=== PATIENT | female | born 1965 | race Caucasian/White ===

== ENCOUNTER 2023-01-01 10:05 | Emergency (ER) | payer OTHER, SELFPAY ==
[2023-01-01 10:10] VITALS: BP 149/96; PULSE 74; RESP 16; TEMP 36.8; O2SAT 99; BMI 35.4
--- NOTE | 2023-01-01 11:33 | ED_ITS ---
HPI - General Adult General Chief complaint: Headache Stated complaint: COVID+ FACE PAIN Time Seen by Provider: 01/01/23 11:27 Source: patient Mode of arrival: walk-in Limitations: no limitations History of Present Illness HPI narrative: This document has been composed with a new electronic medical record and [email or web address] voice recognition system. This document may not fully inaccurately reflect the entirety of the patient encounter.patient's here complaining of nasal congestion and stuffiness sore throat sputum production. She's been previously diagnosed as outpatient test with Covid. She spoke with her primary care doctor who placed her on steroids. She's not on any antibiotics. She is not a diabetic. She does smoke tobacco products. She's had two previous Covid shots but no boosters. She does not use oxygen at home, has no history of chronic obstructive pulmonary disease. She's not short of breath she just wondered about the increased congestion nasal stuffiness since starting her steroids. She did not have a chest x-ray. She's not had nausea vomiting or diarrhea. She tried going back to work and just didn't feel very good. Related Data Allergies Allergy/AdvReac Type Severity Reaction Status Date / Time No Known Drug Allergies Allergy Verified 01/01/23 10:15 Exam Narrative Exam Narrative: awake alert does not appear acutely ill vital signs are stable she is afebrile no hypotension or tachycardia. No respiratory distress and her pulse oximetry is ninety-nine percent on room air. She does have somewhat of a cough. Her skin color is good mucous membranes are moist and pink. We will get a chest x-ray. She has no respiratory distress oximetry is normal no tachypnea. Otherwise she does not appear ill Constitutional Vital Signs, click to edit/add: Last Vital Signs Temp 98.2 F 01/01/23 10:10 Pulse 74 01/01/23 10:10 Resp 16 01/01/23 10:10 BP 149/96 H 01/01/23 10:10 Pulse Ox 99 01/01/23 10:10 O2 Del Method Room Air 01/01/23 10:10 Course Vital Signs Vital signs: Vital Signs Temperature 98.2 F 01/01/23 10:10 Pulse Rate 74 01/01/23 10:10 Respiratory Rate 16 01/01/23 10:10 Blood Pressure 149/96 H 01/01/23 10:10 Pulse Oximetry 99 01/01/23 10:10 Oxygen Delivery Method Room Air 01/01/23 10:10 Temperature 98.2 F 01/01/23 10:10 Pulse Rate 74 01/01/23 10:10 Respiratory Rate 16 01/01/23 10:10 Blood Pressure 149/96 H 01/01/23 10:10 Pulse Oximetry 99 01/01/23 10:10 Oxygen Delivery Method Room Air 01/01/23 10:10 Medical Decision Making MDM Narrative Medical decision making narrative: patient diagnosed with Covid over one week ago. Chest x-ray is normal pulse oximetry and rest trace status is normal. She does have some upper astray symptoms and will be advised to take [id number] Mucinex. She should finish her prednisone that was advised by her primary care doctor Discharge Plan Discharge Chief Complaint: Headache Clinical Impression: COVID-19 Patient Disposition: Home, Self-Care Time of Disposition Decision: 12:22 Additional Instructions: finish the prednisone/Mucinex D [id number] if she did not have problems blood pressure Stand Alone Forms: Portal Instructions Referrals: Shaikh Arshad MD [Primary Care Provider] - 1 week
--- NOTE | 2023-01-01 11:44 | XR_ITS ---
The [address] [address] Patient Name: FABRIZIO ECKERT MRN: [id number] date: 1965 Sex: F Assigned Patient Location: ER Current Patient Location: ER Accession/Order Number: [id number] Exam Date: 01/01/2023 11:58 Report Date: 01/01/2023 12:19 At the request of: GEORGI REINA Procedure: XR chest 1V FRONTAL CHEST; 01/01/2023 11:58 AM EDT Clinical History:sob Comparison: 10/14/2021 . AP portable upright film. No change osseous structures. No change cardiac and mediastinal silhouettes. Again, exophytic pericardial fat right cardiophrenic region. No change in the christofer. No failure pattern. No pleural effusion. No focal infiltrate. Scattered granulomas. Lungs are well expanded. XR/XR chest 1V IMPRESSION: 1. No acute findings. Electronically authenticated by: LIA KOEHLER Date: 01/01/2023 12:19
== END 2023-01-01 12:29 | disposition home or self-care (01) ==
PROVIDERS: Emergency Provider Emergency Medicine Emergency Medical Services; PCP Internal Medicine
DX: U07.1 COVID-19 (principal)
CPT/HCPCS: 71045; 99283

== ENCOUNTER 2023-05-24 06:40 | Outpatient (OUT) | payer OTHER, SELFPAY ==
[2023-05-24 07:12] LABS: Basophils Absolute Auto 0.1 10^3/uL (0.0-0.1); Eosinophils Absolute Auto 0.2 10^3/uL (0.0-0.7); Hematocrit 46.1 % (36.0-48.0); Immature Granulocytes Abs Auto 0.02 10^3/uL (0.00-0.03); Immature Granulocytes Pct Auto 0.2 % (0.0-0.5); Lymphocytes Absolute Auto 1.8 10^3/uL (1.2-3.8); Lymphocytes Percent Auto 21.6 % (20.5-60.0); Mean Corpuscular HGB Conc 32.5 g/dL (29.9-35.2); Mean Corpuscular Hemoglobin 30.8 pg (26.7-34.0); Mean Corpuscular Volume 94.7 fL (81.0-99.0); Mean Platelet Volume 9.5 fL (9.5-13.5); Monocytes Absolute Auto 0.5 10^3/uL (0.3-0.8); Monocytes Percent Auto 5.6 % (1.7-12.0); Neutrophils Absolute Auto 5.6 10^3/uL (1.4-6.5); Neutrophils Percent Auto 69.6 % (43.0-75.0); Platelet Count 327 10^3/uL (150-450); Red Blood Count 4.87 10^6/uL (4.20-5.40); Red Cell Distribution Width 13.5 % (11.0-15.0); White Blood Count 8.1 10^3/uL (4.0-11.0)
[2023-05-24 07:20] LABS: Alanine Aminotransferase 22 U/L (14-59); Albumin Globulin Ratio 0.8; Albumin Level 3.2 g/dL (3.4-5.0); Alkaline Phosphatase 99 U/L (46-116); Anion Gap 12.5; Aspartate Amino Transferase 16 U/L (15-37); BUN Creatinine Ratio 12.2; Bilirubin Total 0.4 mg/dL (0.2-1.0); Calcium 8.9 mg/dL (8.5-10.1); Carbon Dioxide 31.4 mmol/L (21.0-32.0); Chloride 101 mmol/L (98-107); Chol HDL Ratio 4.2; Cholesterol 256 mg/dL (<=200); Estimated GFR (African America >60 (>=60); Estimated GFR (Non-African Ame >60 (>=60); Globulin 4.1 g/dL; Glucose 126 mg/dL (74-106); HDL Cholesterol 61 mg/dL (40-60); Potassium 4.9 mmol/L (3.5-5.1); Sodium 140 mmol/L (136-145); Total Protein 7.3 g/dL (6.4-8.2); Triglycerides 193 mg/dL (<=150); VLDL CHOLESTEROL 38.6 mg/dL
== END 2023-05-24 06:41 | disposition home or self-care (01) ==
LOC: LAB 06:40
PROVIDERS: PCP Internal Medicine; Visit Provider Internal Medicine
DX: I25.10 Atherosclerotic heart disease of native coronary artery without angina pectoris (principal); I10 Essential (primary) hypertension; E78.5 Hyperlipidemia, unspecified
CPT/HCPCS: 36415; 80053; 80061; 85025

== ENCOUNTER 2023-06-24 07:53 | Outpatient (OUT) | payer OTHER, SELFPAY ==
--- OUTSIDE RECORDS SUMMARY | 2023-06-24 07:56 | XMS_ITS | CCD ---
Author Name Unknown Address [address] [place] [address] Organization [facility] Care Team Providers Care Automotive Technician Instructor Name Role Phone PETE, AMGEOFFR Referring Unavailable SEAN, LAURA A Primary Care Unavailable PETE, KAYLA Admitting Unavailable KAYLA FREEMAN Attending Unavailable [place], Laura Primary Care Provider [phone] RHETT NAQVI Referring Unavailable SEAN, LAURA A Primary Care Unavailable AHMADRHETT Referring Unavailable SEAN, LAURA A Primary Care Unavailable RHETT GREGORY Referring Unavailable SEAN, LAURA A Primary Care Unavailable SEAN, LAURA A Primary Care Unavailable DEYANIRA REID Attending Unavailab le SEAN, LAURA A Referring Unavailable SEAN, LAURA A Primary Care Unavailable SEAN, LAURA A Referring Unavailable SEAN, LAURA A Primary Care Unavailable SEAN, LAURA A Referring Unavailable SEAN, LAURA A Primary Care Unavailable Suzi Khanna Primary Care Provider Suzi Khanna Primary Care Provider [phone] Provider, None Primary Care Unavailable Len Garcia Attending Unavailable Len Garcia Admitting Unavailable PAL ANDERSON Admitting Unavailable GABRIELA, DR JUNITO Pisano Consulting Unavailable JONO, MCCAULEY H Primary Care Unavailable PAL ANDERSON Attending Unavailable PAL ANDERSON Consulting Unavailable MARKER, DR JUNG Attending Unavailable MARKER, DR JUNG Admitting Unavailable RAFAT MCMANUS Consulting Unavailable FAWRADHA, MCCAULEY H Primary Care Unavailable MARKER, DR JUNG Consulting Unavailable LEN DNOATO Consulting Unavailable PAL ANDERSON Attending Unavailable PAL ANDERSON Admitting Unavailable MYRA, DR CEASAR Pichardo Consulting Unavailable FAWWAD, MCCAULEY H Primary Care Unavailable PAL ANDERSON Consulting Unavailable FAWWAD, MCCAULEY H Attending Unavailable FAWWAD, MCCAULEY H Admitting Unavailable FAWWAD, MCCAULEY H Primary Care Unavailable FAWWAD, MCCAULEY H Consulting Unavailable FAWWAD, MCCAULEY H Consulting Unavailable FAWWAD, MCACULEY H Attending Unavailable FAWWAD, MCCAULEY H Admitting Unavailable FAWWAD, MCCAULEY H Primary Care Unavailable Calin ESTEVEZ Attending Unavailable SHAIKH DE LA CRUZ Attending Unavailable Allergies Allergy Classification Reported Allergen(s) Allergy Type Date of Onset Reaction(s) Facility (4 sources) Seasonal allergy Allergy to substance 04-30-2020 [facility] Work Phone: Medications Current Medications Medication Drug Class(es) Dates Sig (Normalized) Sig (Original) Aspirin Adult Low Strength 81MG Oral Tablet Delayed Release (9 sources) Start: 09-12-2018 Aspirin Adult Low Strength 81MG Oral Tablet Delayed Release 09/12/2018 Provider: citalopram 40 mg oral tablet (20 sources) Serotonin Reuptake Inhibitor Start: 04-30-2020 End: 07-03-2020 CeleXA 40 MG Oral Tablet 07/03/2020 Provider: Suzi Khanna CNP Start: 09-12-2018 End: 04-30-2020 Citalopram Hydrobromide 20MG Oral Tablet 10/25/2018 - 11/24/2018 Provider: Yevgeniy Park CNP diphenhydrAMINE hydrochloride 25 mg oral tablet (1 source) Histamine-1 Receptor Antagonist Start: 07-03-2020 Benadryl Allergy 25 MG Oral Tablet 07/03/2020 Provider: hydrOXYzine hydrochloride 25 mg oral tablet (5 sources) Antihistamine Start: 04-30-2020 End: 07-03-2020 hydrOXYzine HCl 25 MG Oral Tablet 07/03/2020 Provider: Suzi Khanna CNP Completed/Discontinued Medications Medication Drug Class(es) Dates Sig (Normalized) Sig (Original) amoxicillin 500 mg oral capsule (15 sources) Penicillin-class Antibacterial Start: 05-18-2019 End: 04-30-2020 Amoxicillin 500 MG Oral Capsule 05/18/2019 - 04/30/2020 Provider: Maulik Geiger MD Start: 04-17-2019 End: 04-24-2019 Amoxicillin 500 MG Oral Tabl et 04/17/2019 - 04/24/2019 Provider: Carlitos Summers DDS atenolol 50 mg oral tablet (20 sources) beta-Adrenergic Es Start: 09-12-2018 End: 07-03-2020 Atenolol 50 MG Oral Tablet 11/08/2019 - 11/16/2019 Provider: Suzi Khanna CNP clopidogrel 75 mg oral tablet (20 sources) P2Y12 Platelet Inhibitor Start: 04-18-2019 End: 07-03-2020 Clopidogrel Bisulfate 75 MG Oral Tablet 11/08/2019 - 11/16/2019 Provider: Suzi Khanna CNP Fish Oils (9 sources) Start: 09-12-2018 End: 04-25-2019 Fish Oil 1000MG Oral Capsule 09/12/2018 - 04/25/2019 Provider: Start: 09-12-2018 Fish Oil 1000M G Oral Capsule 09/12/2018 Provider: lisinopril 5 mg oral tablet (20 sources) Angiotensin Converting Enzyme Inhibitor Start: 09-12-2018 End: 07-03-2020 Lisinopril 5MG Oral Tablet 09/14/2018 - 04/09/2019 Provider: Laura Ramirez CNP lovastatin 20 mg oral tablet (18 sources) HMG-CoA Reductase Inhibitor Start: 09-12-2018 End: 03-13-2019 Lovastatin 20MG Oral Tablet 09/14/2018 - 03/13/2019 Provider: Laura Ramirez CNP Magnesium (9 sources) Start: 09-12-2018 End: 04-25-2019 Magnesium 500MG Oral Tablet 09/12/2018 - 04/25/2019 Provider: Start: 09-12-2018 Magnesium 500M G Oral Tablet 09/12/2018 Provider: Problems Active Problems Problem Classification Problem Date Documented Da te Episodic/Chronic Abdominal pain (2 sources) Unspecified abdominal pain; 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: [Right upper quadrant pain] Onset: 11-18-2021 Episodic Adjustment disorders (4 sources) Adjustment disorder with anxious mood; 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: [Adjustment Disorder with Anxiety] Onset: 04-30-2020 Chronic Anxiety disorders (3 sources) Anxiety disorder; 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: [Anxiety Disorder Nos] Onset: 09-14-2018 Chronic Coronary atherosclerosis and other heart disease (7 sources) Coronary arteriosclerosis; 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: [Atherosclerotic heart disease of comanche coronary artery without angina pectoris] Onset: 09-14-2018 Chronic Disorders of lipid metabolism (4 sources) Hyperlipidemia; 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: [Hyperlipidemia, unspecified] Onset: 09-14-2018 Chronic E Codes: Struck by; against (1 source) Other cause of strike by thrown, projected or falling object, initial encounter; 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: [OTH CAUSE STRIK THRWN/FALL OBJ INIT] Onset: 04-30-2022 Episodic Essential hypertension (13 sources) Benign essential hypertension; 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: [Hypertensive disorder] Onset: 09-14-2018 Chronic Genitourinary symptoms and ill-defined conditions (4 sources) Hematuria, unspecified; 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: [HEMATURIA UNSPECIFIED] Onset: 02-17-2022 Episodic Immunizations and screening for infectious disease (4 sources) Exposure to communicable disease; 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: [Virus (organism)] Onset: 04-30-2020 Episodic Mood disorders (17 sources) Depressive disorder; 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: [Recurrent major depression in full remission] Onset: 04-25-2019 Chronic Other aftercare (1 source) Other sizing machine operator (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 therapy; 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: [OTH COAL WASHER CURRENT DRUG THERAPY] Onset: 04-30-2022 Episodic Other aftercare (1 source) jail (current) use of aspirin; 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: [PRISON CURRENT USE OF ASPIRIN] Onset: 04-30-2022 Episodic Other connective tissue disease (3 sources) Pain in left foot; 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: [PAIN IN LEFT FOOT] Onset: 04-28-2022 Episodic Other nutritional; endocrine; and metabolic disorders (17 sources) Simple obesity ; 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: [Obesity Exogenous Due To Excess Calories] Onset: 09-14-2018 Chronic Substance-related disorders (1 source) Nicotine dependence, cigarettes, uncomplicated; 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: [NICOTINE DEPEND CIGARETTES UNCOMP] Onset: 04-30-2022 Chronic Superficial injury; contusion (1 source) Contusion of left foot, initial encounter; 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: [CONTUSION LEFT FOOT INITIAL ENC] Onset: 04-30-2022 Episodic Unclassified (1 source) COUGH, UNSPECIFIED; 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: [COUGH, UNSPECIFIED] Onset: 10-15-2021 Unclassified (2 sources) CONTACT W/AND (SUSP) EXPOS COVID-19; 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: [CONTACT W/AND (SUSP) EXPOS COVID-19] Onset: 10-16-2021 Viral infection (1 source) COVID-19; 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: [COVID-19] Onset: 10-16-2021 Past or Other Problems Problem Classification Problem Date Documented Date Episodic/Chronic Fever of unknown origin (4 sources) Fever, unspecified; 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: [FEVER UNSPECIFIED] Onset: 10-14-2021 Episodic Mood disorders (3 sources) Recurrent mild major depressive disorder co-occurrent with anxiety; 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: [Mood disorders] Onset: 04-25-2019 Mycoses (3 sources) Onychomycosis of toenails; 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: [Dermatophytosis Onychomycosis Toenails Right 1st] Onset: 04-25-2019 Episodic Other non-traumatic joint disorders (3 sources) Hand joint pain; 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: [Arthralgia - Hand Right] Onset: 04-25-2019 Episodic Other screening for suspected conditions (not mental disorders or infectious disease) (5 sources) Encounter for screening for diabetes mellitus; 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: [Diabetes Risk Test Score] Onset: 09-14-2018 Episodic Other upper respiratory infections (8 sources) Upper respiratory infection; 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: [Acute sinusitis, unspecified] Onset: 09-24-2019 Episodic Unclassified (19 sources) Finding of body mass index; 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: [Body Mass Index] Onset: 09-14-2018 Unclassified (3 sources) History AND physical examination; 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: [Routine History and Physical] Onset: 09-14-2018 Unclassified (3 sources) Questionnaires Phq-9 Total Score; 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: [Questionnaires Phq-9 Total Score] Onset: 04-25-2019 Unclassified (3 sources) Fagerstrom Score; 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: [Fagerstrom Score] Onset: 04-25-2019 Unclassified (1 source) CONTACT W/AND (SUSP) EXPOS COVID-19; 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: [CONTACT W/AND (SUSP) EXPOS COVID-19] Onset: 10-13-2021 Results Test Name Value Interpretation Reference Range Facility Registrationon 02-02-2023 Registration [id number]:1 27 [facility] [place] 01-31-2023 Consent [id number]:127 Normal [facility] CT ABD/PELVIS WO CONon 02-18 CT ABD/PELVIS WO CON EXAM: CT ABD/PELVIS WO CON REASON FOR EXAM: Female, 56 years, CALCULUS OF KIDNEY. TECHNIQUE: Computed tomography of the abdomen and pelvis is performed in the axial projection from the lung bases to the pubic symphysis. Sagittal and coronal reconstructed images are performed. Dose reduction techniques were achieved by using automated exposure control and/or adjustment of mA and/or KVP according to patient size and/or use of iterative reconstruction technique. Study was performed without IV contrast. Study was performed without oral contrast. COMPARISON: None. FINDINGS: Lung bases: There is a calcified granuloma at the right lung base. There is no pleural effusion. The visualized portions of the heart are unremarkable. The lack of intravenous contrast slightly limits evaluation of the solid abdominal organs. Liver: The liver is normal. Gallbladder: The gallbladder is contracted. Spleen: The spleen is normal. Pancreas: The pancreas is normal. Adrenal glands: The left adrenal gland is prominent, suggesting hypertrophy. Right kidney: The kidney is normal in size. There is no renal calculus or hydronephrosis. Left kidney: The kidney is normal in size. There is no renal calculus or hydronephrosis. Stomach: The stomach is under distended, limiting evaluation for wall abnormalities. Small bowel: The small bowel is normal. Large bowel: The colon is normal. Appendix: The appendix is visualized, and is normal. Aorta: There are diffuse atherosclerotic calcifications of the abdominal aorta. IVC: The IVC is normal. Retroperitoneum: Normal retroperitoneum. Bladder: The bladder is normal. Pelvic organs: Normal uterus. Abdominal wall: There is a small fat-containing umbilical hernia. Osseous structures: Degenerative changes are seen in the visualized spine. IMPRESSION: No bowel obstruction or acute renal pathology. Normal appendix. Additional nonacute findings, as described above. Electronically authenticated by: LEN DONATO Date: 2022-02-17 23:02 Normal [facility] CBC AUTO DIFFon 02-17-2022 BASO # 0.1 103/ul Normal 0.0-0.[address] [facility] Comment on above: Performed By: #### C BC #### [facility] [address] [address] [address] Abby Sanchez Basophils/100 WBC (Bld) 0.7 % Normal 0.2-2.[address] [facility] Comment on above: Performed By: #### C BC #### [facility] [address] [place] [address] Dr. Abby Sanchez EO # 0.1 103/ul Normal 0.0-0.7 [facility] Comment on above: Performed By: #### C BC #### [facility] [address] [place] [address] Dr. Abby Sanchez Eosinophils/100 WBC (Bld) 1.0 % Normal 0.9-7.0 [facility] Comment on above: Performed By: #### C BC #### [facility] [address] [place] [address] Dr. Abby Sanchez Erythrocyte distribution width (RBC) [Ratio] 13.7 % Normal 11.0-15.[address] [facility] Comment on above: Performed By: #### C BC #### [facility] [address] [place] [address] Dr. Abby Sanchez Hematocrit (Bld) [Volume fraction] 44.5 % Normal 36.0-48.[address] [facility] Comment on above: Performed By: #### C BC #### [facility] [address] [place] [address] Dr. Abby Sanchez Hemoglobin (Bld) [Mass/Vol] 14.5 g/dL Normal 12.0-16.[address] [facility] Comment on above: Performed By: #### C BC #### [facility] [address] [place] [address] Dr. Abby Sanchez IG # 0.03 10e3/ul Normal 0.00-0.03 [facility] Comment on above: Performed By: #### C BC #### [facility] [address] [place] [address] Dr. Abby Sanchez IG % 0.2 % Normal 0.0-0.5 [facility] Comment on above: Performed By: #### C BC #### [facility] [address] [place] [address] Dr. Abby Sanchez LYMPH # 2.1 103/ul Normal 1.2-3.8 [facility] Comment on above: Performed By: #### C BC #### [facility] [address] [place] [address] Dr. Abby Sanchez Lymphocytes/100 WBC (Bld) 16.2 % Critically low 20.5-60.[address] [facility] Comment on above: Performed By: #### C BC #### [facility] [address] [place] [address] Dr. Abby Sanchez MANUAL DIFF REQ NO Normal [facility] Comment on above: Performed By: #### C BC #### [facility] [address] [place] [address] Dr. Abby Sanchez MCH (RBC) [Entitic mass] 30.6 pg Normal 26.7-34.0 [facility] Comment on above: Performed By: #### C BC #### [facility] [address] [place] [address] Dr. Abby Sanchez MCHC (RBC) [Mass/Vol] 32.6 g/dL Normal 29.9-35.2 [facility] Comment on above: Performed By: #### C BC #### [facility] [address] [place] [address] Dr. Abby Sanchez MCV (RBC) [Entitic vol] 93.9 fL Normal 81.0-99.0 [facility] Comment on above: Performed By: #### C BC #### [facility] [address] [place] [address] Dr. Abby Sanchez MONO # 0.6 103/ul Normal 0.3-0.8 [facility] Comment on above: Performed By: #### C BC #### [facility] [address] [place] [address] Dr. Abby Sanchez Monocytes/100 WBC (Bld) 5.1 % Normal 1.7-12.0 [facility] Comment on above: Performed By: #### C BC #### [facility] [address] [place] [address] Dr. Abby Sanchez NEUT # 9.7 103/ul Critically high 1.4-6.5 [facility] Comment on above: Performed By: #### C BC #### [facility] [address] [address] [address] Abby Sanchez Neutrophils/100 WBC (Bld) 76.8 % Critically high 43.0-75.[address] [facility] Comment on above: Performed By: #### C BC #### [facility] [address] [place] [address] Dr. Abby Sanchez Platelet mean volume (Bld) [Entitic vol] 9.6 fL Normal 9.5-13.[address] [facility] Comment on above: Performed By: #### C BC #### [facility] [address] [place] [address] Dr. Abby Sanchez PLT 324 103/ul Normal 150-450 [facility] Comment on above: Performed By: #### C BC #### [facility] [address] [place] [address] Dr. Abby Sanchez RBC 4.74 106/ul Normal 4.20-5.[address] [facility] Comment on above: Performed By: #### C BC #### [facility] [address] [place] [address] Dr. Abby Sanchez WBC 12.7 103/ul Critically high 4.0-11.[address] [facility] Comment on above: Performed By: #### C BC #### [facility] [address] [place] [address] Dr. Abby Sanchez CULTURE URINEon 02-17-2022 CULTURE URINE Culture Observations : NO GROWTH. Normal [facility] Comment on above: Performed By: #### U RCX #### [facility] [address] [place] [address] Dr. Abby Sanchez ER URINE PROFILEon 2 Bilirubin Ql (U) Negative Normal NEGATIVE [facility] Comment on above: Performed By: #### BARRINGTON MOERO ####[facility] [address] [address]Dr. Abby Sanchez Clarity (U) SL CLOUDY Abnormal CLEAR [facility] Comment on above: Performed By: #### BEAR MOEICRO ####[facility] [address] [id number]. Abby Sanchez Color (U) LT. YELLOW Normal YELLOW [facility] Comment on above: Performed By: #### Mani SNOW UMICRO ####[facility] [address] [address]Dr. Abby Sanchez ERUAHD A micrscopic examina tion will be performed if indicated. Normal [facility] Comment on above: Performed By: #### Mani SNOW UMICRO ####[facility] [address] [place], [place] [address]Dr. Abby Sanchez Glucose Ql (U) Negative Normal NEGATIVE [facility] Comment on above: Performed By: #### Mani SNOW UMICRO ####[facility] [address] [place], [place] [address]Dr. Abby Sanchez Hemoglobin Ql (U) LARGE Abnormal NEGATIVE [facility] Comment on above: Performed By: #### Mani SNOW UMICRO ####[facility] [address] [place], [place] [address]Dr. Abby Sanchez Ketones Ql (U) Negative Normal NEGATIVE [facility] Comment on above: Performed By: #### Mani SNOW UMICRO ####[facility] [address] [place], [place] [address]Dr. Abby Sanchez LEUKOCYTES TRACE Abnormal NEGATIVE [facility] Comment on above: Performed By: #### Mani SNOW UMICRO ####[facility] [address] [place], [place] [address]Dr. Abby Sanchez Nitrite Ql (U) Negative Normal NEGATIVE [facility] Comment on above: Performed By: #### Mani SNOW UMICRO ####[facility] [address] [place], [place] [address]Dr. Abby Sanchez pH (U) 7.0 [pH] Normal 5-9 [facility] Comment on above: Performed By: #### Mani SNOW UMICRO ####[facility] [address] [place], [place] [address]Dr. Abby Sanchez Protein (U) [Mass/Vol] 100 mg/dL Abnormal NEGATIVE/ TRACE [facility] Comment on above: Performed By: #### CATHY MOE ####[facility] [address] [address]Dr. Abby Sanchez SPEC GRAVITY 1.025 Normal 1.005-<=1.[address] [facility] Comment on above: Performed By: #### CATHY MOE ####[facility] [address] [address]Dr. Abby Sacnhez UR MICRO IND INDICATED Normal [facility] Comment on above: Performed By: #### CATHY MEO ####[facility] [address] [address]Dr. Abby Sanchez Urobilinogen Qn (U) 0.2 {Carolina'U}/dL Normal 0.2 - 1. [address] [facility] Comment on above: Performed By: #### CATHY MOE ####[facility] [address] [place], [place] [address]Dr. Abby Sanchez PROF CHEM 8 (BAS METB)on Anion gap [Moles/Vol] 11.5 mmol/L Normal [facility] Comment on above: Performed By: #### B MP ####[facility] [address] [place], [place] [address]Dr. Abby Sanchez Calcium [Mass/Vol] 8.9 mg/dL Normal 8.5-10.1 [facility] Comment on above: Performed By: #### B MP ####[facility] [address] [place], [place] [address]Dr. Abby Sanchez Chloride [Moles/Vol] 103 mmol/L Normal 98-107 [facility] Comment on above: Performed By: #### B MP ####[facility] [address] [place], [place] [address]Dr. Abby Sanchez CO2 [Moles/Vol] 29.1 mmol/L Normal 21.0-32.0 [facility] Comment on above: Performed By: #### B MP ####[facility] [address] [place], [place] [address]Dr. Abby Sanchez Creatinine [Mass/Vol] 0.79 mg/dL Normal 0.55-1.[address] [facility] Comment on above: Performed By: #### B MP ####[facility] [address] [address]Dr. Kirabrittney Daniel EGFR-AF SUDANESE >60 Normal >=[address] [facility] Comment on above: Performed By: #### B MP ####[facility] [address] [address]Dr. Kirabrittney Daniel EGFR-NON AF SUDANESE >60 Normal >=[address] [facility] Comment on above: Performed By: #### B MP ####[facility] [address] [address]Dr. Abby Sanchez Glucose [Mass/Vol] 112 mg/dL Critically high 74-106 T [facility] Comment on above: Performed By: #### B MP ####[facility] [address] [address]Dr. Abby Sanchez Potassium [Moles/Vol] 4.6 mmol/L Normal 3.5-5.[address] [facility] Comment on above: Performed By: #### B MP ####[facility] [address] [address]Dr. Abby Sanchez Sodium [Moles/Vol] 139 mmol/L Normal 136-[address] [facility] Comment on above: Performed By: #### B MP ####[facility] [address] [address]Dr. Abby Sanchez Urea nitrogen [Mass/Vol] 12.0 mg/dL Normal 7.0-18.[address] [facility] Comment on above: Performed By: #### B MP ####[facility] [address] [address]Dr. Abby Sanchez Urea nitrogen/Creatinine [Mass ratio] 15.2 mg/mg Normal [facility] Comment on above: Performed By: #### B MP ####[facility] [address] [address]Dr. Abby Sanchez PROTIMEon 02-17-2022 INR Coag (PPP) [Relative time] {INR} Normal [facility] Comment on above: Performed By: #### P T, PTT #### [facility] [address] [address] [address] Abby Sanchez INR GUIDELINES SEE BELOW Normal [facility] Comment on above: Result Comment: PINEDA RED INR: 2.0 - 3.0 CONDITIONS NOT LISTED BELOW 2.5 - 3.5 FOR PROSTHETIC HEART VALVE REPLACEMENT 2.5 - 3.5 RECURRENT THROMBOSIS Performed By: #### P T, PTT #### [facility] [address] [address] [address] Abby Sanchez PT Coag (PPP) [Time] 10.0 s Normal 9.0-11.6 [facility] Comment on above: Performed By: #### P T, PTT #### [facility] [address] [place] [address] Dr. Abby Sanchez PTTon 02-17-2022 aPTT Coag (Bld) [Time] 27.9 s Normal 22.3-36.2 [facility] Comment on above: Performed By: #### P T, PTT #### [facility] [address] [place] [address] Dr. Abby Sanchez URINE MICROSCOPIC ONLYon BACTERIA TRACE Abnormal NONE SEEN [facility] Comment on above: Performed By: #### BARRINGTON MOERO ####[facility] [address] [id number]. Abby Sanchez Bacteria identified Cx Nom (U) INDICATED Normal [facility] Comment on above: Performed By: #### BARRINGTON MOERO ####[facility] Zluujqdjbr[address] [place] [address]DrChandrakant Sanchez CAST NONE SEEN Normal NONE SEEN [facility] Comment on above: Performed By: #### BARRINGTON MOERO ####[facility] Bfhydxrbfp0809 [place] [address]DrChandrakant Sanchez Crystals LM Nom (Urine sed) NONE SEEN Normal NONE SEEN [facility] Comment on above: Performed By: #### BARRINGTON MOERO ####[facility] Ztlavepkua[address] [place], [place] [address]Dr. Abby Sanchez Epithelial cells LM Ql (Urine sed) FEW Abnormal NONE SEEN /RARE [facility] Comment on above: Performed By: #### CATHY MOE ####[facility] Rtilsvhyzo[address] [place], [place] [address]Dr. Kirabrittney Daniel MUCOUS NONE SEEN Normal NONE SEEN [facility] Comment on above: Performed By: #### CATHY MOE ####[facility] Agppzauoqw[address] [place], [place] [address]Dr. Abby Sanchez RBC (U) [#/Vol] /uL Abnormal 0-2 [facility] Comment on above: Performed By: #### CATHY MOE ####[facility] Mseqiyeqoz[address] [place], [place] [address]Dr. Abby Sanchez WBC 5-10 Abnormal NONE SEEN [facility] Comment on above: Performed By: #### CATHY MOE ####[facility] [address]zsuwevwxh[address] [place], [place] [address]Dr. Abby Daniel CBC AUTO DIFFon 11-17-2021 BASO # 0.1 103/ul Normal 0.0-0.1 [facility] Comment on above: Performed By: #### C BC ####[facility] Efuzfjmvcm[address] [place], [place] [address]Dr. Abby Sanchez Basophils/100 WBC (Bld) 0.9 % Normal 0.2-2.0 [facility] Comment on above: Performed By: #### C BC ####[facility] [address]jgvqtpv[address] [place], [place] [address]Dr. Abby Sanchez EO # 0.1 103/ul Normal 0.0-0.7 [facility] Comment on above: Performed By: #### C BC ####[facility] Euqhbahnae[address] [place], [place] [address]Dr. Abby Sanchez Eosinophils/100 WBC (Bld) 1.9 % Normal 0.9-7.0 [facility] Comment on above: Performed By: #### C BC ####[facility] Olazgtzmvf[address] [place], [place] [address]Dr. Abby Sanchez Erythrocyte distribution width (RBC) [Ratio] 13.8 % Normal 11.0-15.0 [facility] Comment on above: Performed By: #### C BC ####[facility] [address]xpbtspj[address] [place] [address]Dr. Abby Sanchez Hematocrit (Bld) [Volume fraction] 44.4 % Normal 36.0-48.0 [facility] Comment on above: Performed By: #### C BC ####[facility] Nwbhiapvqt4445 [place] [address]Dr. Abby Sanchez Hemoglobin (Bld) [Mass/Vol] 14.5 g/dL Normal 12.0-16.0 [facility] Comment on above: Performed By: #### C BC ####[facility] Lehxfzieju9485 [place] [address]Dr. Abby Sanchez IG # 0.02 10e3/ul Normal 0.00-0.03 [facility] Comment on above: Performed By: #### C BC ####[facility] Ntpfgvquou1869 [place] [address]Dr. Abby Sanchez IG % 0.4 % Normal 0.0-0.5 [facility] Comment on above: Performed By: #### C BC ####[facility] Slvmesyevv0570 [place] [address]Dr. Abby Sanchez LYMPH # 1.8 103/ul Normal 1.2-3.8 [facility] Comment on above: Performed By: #### C BC ####[facility] Lwwxkfggrb23[address] [place] [address]Dr. Abby Daniel Lymphocytes/100 WBC (Bld) 30.9 % Normal 20.5-60.0 [facility] Comment on above: Performed By: #### C BC ####[facility] Vqzywhudrm8898 [place] [address]Dr. Kirabrittney Sanchez MANUAL DIFF REQ NO Normal [facility] Comment on above: Performed By: #### C BC ####[facility] Ddqvluiunl7527 [place] [address]Dr. Abby Sanchez MCH (RBC) [Entitic mass] 31.2 pg Normal 26.7-34.0 [facility] Comment on above: Performed By: #### C BC ####[facility] Lruaronrzb6177 [place] [address]Dr. Abby Sanchez MCHC (RBC) [Mass/Vol] 32.7 g/dL Normal 29.9-35.2 [facility] Comment on above: Performed By: #### C BC ####[facility] Zzovqkjxvr5842 [place] [address]Dr. Abby Sanchez MCV (RBC) [Entitic vol] 95.5 fL Normal 81.0-99.0 [facility] Comment on above: Performed By: #### C BC ####[facility] Yuicvfeqsq9[address] [place], [place] [address]Dr. Abby Sanchez MONO # 0.3 103/ul Normal 0.3-0.8 [facility] Comment on above: Performed By: #### C BC ####[facility] Wjejcouhym[address] [place], [place] [address]Dr. Abby Sanchez Monocytes/100 WBC (Bld) 5.3 % Normal 1.7-12.0 [facility] Comment on above: Performed By: #### C BC ####[facility] Tuiktooitm[address] [place], [place] [address]Dr. Abby Sanchez NEUT # 3.5 103/ul Normal 1.4-6.5 [facility] Comment on above: Performed By: #### C BC ####[facility] Tajokityvv[address] [place], [place] [address]Dr. Abby Daniel Neutrophils/100 WBC (Bld) 60.6 % Normal 43.0-75.0 [facility] Comment on above: Performed By: #### C BC ####[facility] Ejorixryqu[address] [place], [place] [address]Dr. Abby Sanchez Platelet mean volume (Bld) [Entitic vol] 9.6 fL Normal 9.5-13.5 [facility] Comment on above: Performed By: #### C BC ####[facility] R[address] [place], [place] [address]Bt. Abby Sanchez PLT 308 103/ul Normal 150-450 [facility] Comment on above: Performed By: #### C BC ####[facility] Fifoonviah9849 [place] [id number] Malonebrittney Sanchez RBC 4.65 106/ul Normal 4.20-5.[address] [facility] Comment on above: Performed By: #### C BC ####[facility] Nviwexzntn8174 [place] [address]Dr. Kirabrittney Daniel WBC 5.7 103/ul Normal 4.0-11.0 [facility] Comment on above: Performed By: #### C BC ####[facility] Hllshkbted9680 [place] [id number]. Abby Sanchez GLYCOHEMOGLOBIN A1Con 2021 ADA RECOMMENDATION SEE BELOW Normal [facility] Comment on above: Result Comment: ADA RECOMMENDED LIMIT 4.0 - 6.0 ADA THERAPEUTIC TARGET < 7.0 ACTION SUGGESTED > 7.0 Performed By: #### A 1C #### [facility] [address] [place] [address] [address] Abby Sanchez Glucose [Mass/Vol] 131 mg/dL Normal [facility] Comment on above: Performed By: #### A 1C #### [facility] [address] [place] [address] Dr. Abby Sanchez HbA1c (Bld) [Mass fraction] 6.2 % Normal 4.5-6.[address] [facility] Comment on above: Performed By: #### A 1C #### [facility] [address] [address] [address] Abby Sanchez LIPASEon 11-17-2021 Lipase [Catalytic activity/Vol] 117.0 U/L Normal 73.0-393.[address] [facility] Comment on above: Performed By: #### C MP, LIPA, LIPID #### [facility] [address] [address] [address] Abby Sanchez LIPID PROFILEon 11-17-2021 CHOL-HDL RATIO NORM SEE BELOW Normal [facility] Comment on above: Result Comment: 3.3 - 4.4 LOW RISK 4.4 - 7.1 AVERAGE RISK 7.1 - 11.0 MODERATE RISK >11.0 HIGH RISK Performed By: #### C MP, LIPA, LIPID #### [facility] [address] [place] [address] Dr. Abby Sanchez Cholesterol [Mass/Vol] 220 mg/dL Critically high <=[address] [facility] Comment on above: Performed By: #### C MP, LIPA, LIPID #### [facility] [address] [address] [address] Abby Sanchez Cholesterol in HDL [Mass/Vol] 52 mg/dL Normal 40-[address] [facility] Comment on above: Performed By: #### C MP, LIPA, LIPID #### [facility] [address] [place] [address] Dr. Abby Sanchez Cholesterol in LDL [Mass/Vol] 142.8 mg/dL Normal [facility] Comment on above: Performed By: #### C MP, LIPA, LIPID #### [facility] [address] [place] [address] Dr. Abby Sanchez Cholesterol.total/C holesterol in HDL [Mass ratio] 4.2 {ratio} Normal [facility] Comment on above: Performed By: #### C MP, LIPA, LIPID #### [facility] [address] [place] [address] Dr. Abby Sanchez HDL NORMAL > or = 60 mg/dl - LO W CARDIOVASCULAR RISK <40 mg/dl - HIGH CARDIOVASCULAR RISK Normal [facility] Comment on above: Performed By: #### C MP, LIPA, LIPID #### [facility] [address] [place] [address] Dr. Abby Sanchez LDL CALC NORMAL SEE BELOW Normal [facility] Comment on above: Result Comment: <100 mg/dl OPTIMAL 100 - 129 mg/dl NEAR OR ABOVE OPTIMAL 130 - 159 mg/dl BORDERLINE HIGH 160 - 189 mg/dl HIGH >190 mg/dl VERY HIGH Performed By: #### C MP, LIPA, LIPID #### [facility] [address] [place] [address] Dr. Abby Sanchez Triglyceride [Mass/Vol] 126 mg/dL Normal <=[address] [facility] Comment on above: Performed By: #### C MP, LIPA, LIPID #### [facility] [address] [address] [address] Abby Sanchez VLDL CALC 25.2 mg/dL Normal [facility] Comment on above: Performed By: #### C MP, LIPA, LIPID #### [facility] [address] [address] [address] Abby Sanchez PROF 14(COMP METB)on 022 Albumin [Mass/Vol] 3.3 g/dL Critically low 3.4-5.0 [facility] e [facility] Comment on above: Performed By: #### C MP, LIPA, LIPID ####[facility] Tdhujlzkas[address] [place] [address]Dr. Abby Sanchez Albumin/Globulin [Mass ratio] 0.8 {ratio} Normal [facility] Comment on above: Performed By: #### C MP, LIPA, LIPID ####[facility] Z[address]jzjmbpl[address] [place] [address]Dr. Abby Sanchez ALP [Catalytic activity/Vol] 111 U/L Normal 46-[address] [facility] Comment on above: Performed By: #### C MP, LIPA, LIPID ####[facility] Hpnooqfjkr[address] [place] [address]Dr. Abby Sanchez ALT [Catalytic activity/Vol] 25 U/L Normal 14-[address] [facility] Comment on above: Performed By: #### C MP, LIPA, LIPID ####[facility] Gtffjpqvgs[address]98 [place] [address]Dr. Abby Sanchez Anion gap [Moles/Vol] 11.8 mmol/L Normal [facility] Comment on above: Performed By: #### C MP, LIPA, LIPID ####[facility] Ofifvzvkai6[address] [place] [address]Dr. Abby Sanchez AST [Catalytic activity/Vol] 19 U/L Normal 15-[address] [facility] Comment on above: Performed By: #### C MP, LIPA, LIPID ####[facility] Czjwisagcx4787 [place] [address]Dr. Abby Sanchez Bilirubin [Mass/Vol] 0.4 mg/dL Normal 0.2-1.0 [facility] Comment on above: Performed By: #### C MP, LIPA, LIPID ####[facility] Stbbdvjsux4697 [place] [address]Dr. Abby Sanchez Calcium [Mass/Vol] 9.1 mg/dL Normal 8.5-10.1 [facility] Comment on above: Performed By: #### C MP, LIPA, LIPID ####[facility] [address]lrohy[address] [place], [place] [address]Dr. Abby Sanchez Chloride [Moles/Vol] 103 mmol/L Normal 98-107 [facility] Comment on above: Performed By: #### C MP, LIPA, LIPID ####[facility] Phlbhfaaqp[address] [place], [place] [address]Dr. Abby Sanchez CO2 [Moles/Vol] 28.8 mmol/L Normal 21.0-32.0 [facility] Comment on above: Performed By: #### C MP, LIPA, LIPID ####[facility] Dhltjrexar[address] [place], [place] [address]Dr. Abby Sanchez Creatinine [Mass/Vol] 0.76 mg/dL Normal 0.55-1.02 [facility] Comment on above: Performed By: #### C MP, LIPA, LIPID ####[facility] Pigouxpspa[address] [place], [place] [address]Dr. Abby Sanchez EGFR-AF SUDANESE >60 Normal >=60 [facility] Comment on above: Performed By: #### C MP, LIPA, LIPID ####[facility] Djdqxsoymb[address] [place], [place] [address]Dr. Abby Sanchez EGFR-NON AF SUDANESE >60 Normal >=60 [facility] Comment on above: Performed By: #### C MP, LIPA, LIPID ####[facility] [address]qlelpidxg[address] [place], [place] [address]Dr. Abby Sanchez Globulin (S) [Mass/Vol] 4.1 g/dL Normal [facility] Comment on above: Performed By: #### C MP, LIPA, LIPID ####[facility] Uxyapizpne[address] [place] [address]Dr. Abby Sanchez Glucose [Mass/Vol] 111 mg/dL Critically high 74-106 T [facility] Comment on above: Performed By: #### C MP, LIPA, LIPID ####[facility] Iwvzuntcrp15[address] [place] [address]Dr. Abby Sanchez Potassium [Moles/Vol] 4.6 mmol/L Normal 3.5-5.[address] [facility] Comment on above: Performed By: #### C MP, LIPA, LIPID ####[facility] Glabazvqso[address] [place] [address]Dr. Abby Sanchez Protein [Mass/Vol] 7.4 g/dL Normal 6.4-8.[address] [facility] Comment on above: Performed By: #### C MP, LIPA, LIPID ####[facility] Frknwbayrf4575 [place] [address]Dr. Abby Sanchez Sodium [Moles/Vol] 139 mmol/L Normal 136-[address] [facility] Comment on above: Performed By: #### C MP, LIPA, LIPID ####[facility] Rciwcikpou[address] [place] [address]Dr. Abby Sanchez Urea nitrogen [Mass/Vol] 12.0 mg/dL Normal 7.0-18.[address] [facility] Comment on above: Performed By: #### C MP, LIPA, LIPID ####[facility] Pngjuswaxl[address] [place] [address]Dr. Abby Sanchez Urea nitrogen/Creatinine [Mass ratio] 15.8 mg/mg Normal [facility] Comment on above: Performed By: #### C MP, LIPA, LIPID ####[facility] Qfnzytzjxy[address] [place] [address]Dr. Abby Sanchez INFLUENZA A AND B AGon 10-14 INFLUANEGH SEE BELOW Normal [facility] Comment on above: Result Comment: Nega tive for Flu A protein angiten. Infection due to Flu A cannot be ruled out. Flu A angiten in the sample may be below the detection limit of the test. Performed By: #### I NFLUAB #### [facility] [address] [place] [address] Dr. Abby Sanchez [facility] SEE BELOW Normal [facility] Comment on above: Result Comment: Nega tive for Flu B protein antigen. Infection due to Flu B cannot be ruled out. Flu B antigen in the sample may be below the detection limit of the test. Performed By: #### I NFLUAB #### [facility] [address] [place] [address] Dr. Abby Sanchez INFLUENZA A AG Negative Normal NEGATIVE SEE COMMENT [facility] Comment on above: Performed By: #### I NFLUAB #### [facility] [address] [place] [address] Dr. Abby Sanchez INFLUENZA B AG Negative Normal NEGATIVE SEE COMMENT [facility] Comment on above: Performed By: #### I NFLUAB #### [facility] [address] [place] [address] Dr. Abby Sanchez INTERNAL CONTROLS Within Normal Limits Normal Wi thin Normal Limits [facility] Comment on above: Performed By: #### I NFLUAB #### [facility] [address] [place] [address] Dr. Abby Sanchez XR CHEST 1 Von 10-14-2021 XR CHEST 1 V EXAMINATION: XR CHES T 1 V HISTORY: COUGH COMPARISON: No relevant comparison available. TECHNIQUE: AP portable erect FINDINGS: LUNGS: Scattered pulmonary nodules, size and density suggests granulomas VASCULATURE: No increased pulmonary vasculature. PLEURA: No pneumothorax, effusion, or pleural thickening. CARDIAC: No cardiomegaly or cardiac silhouette abnormality. MEDIASTINUM: No visible mass or adenopathy. BONES: No fracture or visible bone lesion. OTHER: Negative. IMPRESSION: No focal infiltrates Electronically authenticated by: CEASAR RENTERIA Date: 2021-10-14 13:03 Normal [facility] Covid-19 PCR (CVDTB)on SARS-CoV-2 (COVID-19) RNA HAO+probe Ql (Unsp spec) Detected Critically abnormal NOT DETECTED [facility] Comment on above: Result Comment: This test is not yet approved or cleared by the [place] FDA. When there are no FDA-approved or cleared tests available, and other criteria are met, FDA can make tests available under an emergency access mechanism called an Emergency Use Authorization (EUA). The EUA for this test is supported by the Adjunct Psychology Instructor of Health and Human Service's declaration that circumstances exist to justify the emergency use of in vitro diagnostics for the detection and/or diagnosis of the virus that causes COVID-19. This EUA will remain in effect for the duration of the COVID-19 declaration justifying emergency of IVDs, unless it is terminated or revoked by the FDA (after which the test may no longer be used). Performed By: #### C [facility] ####[facility] Tvdswsmpfm[address] [place], [place] [address]FbChandrakant Sanchez XR HAND RIGHT (MIN 3 VIEWS)o n 04-25-2019 XR HAND RIGHT (MIN 3 VIEWS) EXAMINATION: THREE XRAY VIEWS OF THE RIGHT HAND 04/25/2019 12:27 pm COMPARISON: None. HISTORY: ORDERING SYSTEM PROVIDED HISTORY: Joint pain in fingers of right hand TECHNOLOGIST PROVIDED HISTORY: RT. THUMB FINDINGS: Anatomic alignment. No acute fracture. The joint spaces are not significantly narrowed. No destructive bony abnormality. Bone density is normal. IMPRESSION: Unremarkable appearing hand Interpreted by: Deyanira Cortés MD Signed by: Deyanira Cortés MD 04/25/19 Final result Normal [facility] C-Reactive Proteinon 019 CRP [Mass/Vol] 57.2 mg/L High 0.0-5.0 [facility] Comment on above: Performed By: #### C DP, CRP #### [facility] [address] [place] [address] Adjunct Business Instructor: Wang Day MD CBC with Diffon 12-17-2018 Abs. Basophil 0.04 k/uL Normal 0.00-0.20 [facility] Comment on above: Performed By: #### C DP, CRP #### [facility] [address] [place] [address] Adjunct Business Instructor: Wang Day MD Abs.Imm.Granulocyte 0.03 k/uL Normal 0.00-0.30 [facility] Comment on above: Performed By: #### C DP, CRP #### [facility] [address] [place] [place] [address] Adjunct Business Instructor: Wang Day MD Abs.Neutrophil (Seg) 6.82 k/uL Normal 1.50-8.10 [facility] Comment on above: Performed By: #### C DP, CRP #### [facility] [address] [place] [place] [address] Adjunct Business Instructor: Wang Day MD Basophils/100 WBC (Bld) 0 % Normal 0-2 [facility] Comment on above: Performed By: #### C DP, CRP #### [address] [place] [address] Adjunct Business Instructor: Wang Day MD Eosinophils (Bld) [#/Vol] 0.11 10*3/uL Normal 0.00-0.44 [facility] Comment on above: Performed By: #### C DP, CRP #### [address] [place] [address] Adjunct Business Instructor: Wang Day MD Eosinophils/100 WBC (Bld) 1 % Normal 1-4 [facility] Comment on above: Performed By: #### C DP, CRP #### [address] [place] [address] Adjunct Business Instructor: Wang Day MD Erythrocyte distribution width (RBC) [Ratio] 12.6 % Normal 11.8-14.4 [facility] Comment on above: Performed By: #### C DP, CRP #### [address] [place] [address] Adjunct Business Instructor: Wang Day MD Hematocrit (Bld) [Volume fraction] 36.5 % Normal 36.3-47.1 [facility] Comment on above: Performed By: #### C DP, CRP #### [address] [place] [id number] Adjunct Business Instructor: Wang Day MD Hemoglobin (Bld) [Mass/Vol] 12.1 g/dL Normal 11.9-15.1 [facility] Comment on above: Performed By: #### C DP, CRP #### [facility] [address] [place], [place] [id number] Adjunct Business Instructor: Wang Day MD Immature granulocytes (Bld) [#/Vol] 0 % Normal 0 [facility] Comment on above: Performed By: #### C DP, CRP #### [facility] [address] [place] [address] Adjunct Business Instructor: Wang Day MD Lymphocytes (Bld) [#/Vol] 1.57 10*3/uL Normal 1.10-3.70 [facility] Comment on above: Performed By: #### C DP, CRP #### [facility] [address] [place], [facility]83 Adjunct Business Instructor: Wang Day MD Lymphocytes/100 WBC (Bld) 17 % Low 24-43 [facility] Comment on above: Performed By: #### C DP, CRP #### [facility] [address] [place], [place] [address] Adjunct Business Instructor: Wang Day MD MCH (RBC) [Entitic mass] 31.3 pg Normal 25.2-33.5 [facility] Comment on above: Performed By: #### C DP, CRP #### [facility] [address] [place], [facility]83 Adjunct Business Instructor: Wang Day MD MCHC (RBC) [Mass/Vol] 33.2 g/dL Normal 28.4-34.8 [facility] Comment on above: Performed By: #### C DP, CRP #### [facility] [address] [place] [address] Adjunct Business Instructor: Wang Day MD MCV (RBC) [Entitic vol] 94.6 fL Normal 82.6-102.9 [facility] Comment on above: Performed By: #### C DP, CRP #### [facility] [address] [place], [place] [address] Adjunct Business Instructor: Wang Day MD Monocytes (Bld) [#/Vol] 0.84 10*3/uL Normal 0.10-1.20 [facility] Comment on above: Performed By: #### C DP, CRP #### [facility] [address] [place], [place] [id number] Adjunct Business Instructor: Wang Day MD Monocytes/100 WBC (Bld) 9 % Normal 3-12 [facility] Comment on above: Performed By: #### C DP, CRP #### [facility] [address] [place], [place] [address] Adjunct Business Instructor: Wang Day MD Neutrophil (Seg) 73 % High 36-65 [facility] Comment on above: Performed By: #### C DP, CRP #### [facility] [address] [place], [place] [address] Adjunct Business Instructor: Wang Day MD NRBC Automated 0.0 per 100 WBC Normal 0.0 [facility] Comment on above: Performed By: #### C DP, CRP #### [facility] [address] [place], [place] [address] Adjunct Business Instructor: Wang Day MD Platelet mean volume (Bld) [Entitic vol] 9.8 fL Normal 8.1-13.5 [facility] Comment on above: Performed By: #### C DP, CRP #### [facility] [address] [place], [place] [id number] Adjunct Business Instructor: Wang Day MD Platelets (Bld) [#/Vol] 290 10*3/uL Normal 138-453 [facility] Comment on above: Performed By: #### C DP, CRP #### [facility] [address] [place], [place] [id number] Adjunct Business Instructor: Wang Day MD RBC (Bld) [#/Vol] 3.86 10*6/uL Low 3.95-5.11 [facility] Comment on above: Performed By: #### C DP, CRP #### [facility] [address] [place], [place] [id number] Adjunct Business Instructor: Wang Day MD WBC (Bld) [#/Vol] 9.4 10*3/uL Normal 3.5-11.3 [facility] System Comment on above: Performed By: #### C DP, CRP #### [address] [place], [place] [id number] Adjunct Business Instructor: Wang Day MD Auto Diff Performed NOT REPORTED Normal [facility] Comment on above: Performed By: #### C DP, CRP #### [address] [place], [facility]83 Adjunct Business Instructor: Wang Day MD Platelets (Bld) [#/Vol] NOT REPORTED Normal [facility] Comment on above: Performed By: #### C DP, CRP #### [address] [place], [facility]83 Adjunct Business Instructor: Wang Day MD RBC morphology finding Nom (Bld) NOT REPORTED Normal [facility] Comment on above: Performed By: #### C DP, CRP #### [facility] [address] [place], [facility]83 Adjunct Business Instructor: Wang Day MD WBC Morphology NOT REPORTED Normal [facility] Comment on above: Performed By: #### C DP, CRP #### [facility] [address] [place], [place] [phone] Adjunct Business Instructor: Wang Day MD Urinalysis w/ Microon 2018 ----- Normal [facility] Comment on above: Performed By: #### U AMIC #### [facility] [address] [place], [place] [id number] Adjunct Business Instructor: Wang Day MD Acetoacetic Acid,Ur TRACE Abnormal [facility] Comment on above: Performed By: #### U AMIC #### [facility] [address] [place] [address] Adjunct Business Instructor: Wang Day MD Amorphous sediment LM Ql (Urine sed) TRACE Abnormal [facility] Comment on above: Performed By: #### U AMIC #### [facility] [address] [place] [phone] Adjunct Business Instructor: Wang Day MD Bacteria LM.HPF (Urine sed) [#/Area] TRACE Abnormal [facility] Comment on above: Performed By: #### U AMIC #### [address] [place] [address] Adjunct Business Instructor: Wang Day MD Bilirubin, SemiQt,Ur Negative Normal [facility] Comment on above: Performed By: #### U AMIC #### [address] [place] [phone] Adjunct Business Instructor: Wang Day MD Color (U) YELLOW Normal L [facility] Comment on above: Performed By: #### U AMIC #### [facility] [address] [place] [phone] Adjunct Business Instructor: Wang Day MD Epithelial cells LM.HPF (Urine sed) [#/Area] 2 TO 5 Normal 0-25 [facility] Comment on above: Performed By: #### U AMIC #### [facility] [address] [place], [place] [phone] Adjunct Business Instructor: Wang Day MD Glucose Ql (U) Negative Normal [facility] Comment on above: Performed By: #### U AMIC #### [facility] [address] [place] [address] Adjunct Business Instructor: Wang Day MD Hemoglobin, Ur 1+ Abnormal NEG [facility] Comment on above: Performed By: #### U AMIC #### [facility] [address] [place] [address] Adjunct Business Instructor: Wang Day MD Leukocyte esterase Test strip Ql (U) Negative Normal NEG [facility] Comment on above: Performed By: #### U AMIC #### [facility] [address] [place] [address] Adjunct Business Instructor: Wang Day MD Nitrite,Ur Negative Normal NEG [facility] Comment on above: Performed By: #### U AMIC #### [facility] [address] [place] [address] Adjunct Business Instructor: Wang Day MD pH (U) 7.5 [pH] Normal 5.0-9.0 [facility] Comment on above: Performed By: #### U AMIC #### [facility] [address] [place], [place] [phone] Adjunct Business Instructor: Wang Day MD Protein Ql (U) TRACE Abnormal NEG [facility] Comment on above: Performed By: #### U AMIC #### [facility] [address] [place] [address] Adjunct Business Instructor: Wang Day MD RBC (U) [#/Vol] 10 TO 20 Normal 0-2 [facility] Comment on above: Performed By: #### U AMIC #### [facility] [address] [place] [address] Adjunct Business Instructor: Wang Day MD Specific gravity (U) [Rel density] 1.010 Normal 1.010-1.020 [facility] Comment on above: Performed By: #### U AMIC #### [facility] [address] [place] [address] Adjunct Business Instructor: Wang Day MD Turbidity CLEAR Normal CLEAR [facility] Comment on above: Performed By: #### U AMIC #### [facility] [address] [place] [address] Adjunct Business Instructor: Wang Day MD Urobilinogen,Ur ELEVATED Abnormal NORM [facility] Comment on above: Performed By: #### U AMIC #### [facility] [address] [place], [place] [phone] Adjunct Business Instructor: Wang Day MD WBC (U) [#/Vol] 0 TO 2 Normal 0-5 [facility] Comment on above: Performed By: #### U AMIC #### [facility] [address] [place], [place] 357[address]83 Adjunct Business Instructor: Wang Day MD Casts LM.LPF (Urine sed) [#/Area] NOT REPORTED Normal [facility] Comment on above: Performed By: #### U AMIC #### [facility] [address] [place], [place] [phone] Adjunct Business Instructor: Wang Day MD Comment NOT REPORTED Normal [facility] Comment on above: Performed By: #### U AMIC #### [facility] [address] [place], [place] [phone] Adjunct Business Instructor: Wang Day MD Crystals LM Nom (Urine sed) NOT REPORTED Normal [facility] Comment on above: Performed By: #### U AMIC #### [facility] [address] [place], [place] [phone] Adjunct Business Instructor: Wang Day MD Epithelial, Renal NOT REPORTED Normal 0 [facility] Comment on above: Performed By: #### U AMIC #### [facility] [address] [place] [address] Adjunct Business Instructor: Wang Day MD Mucus Strands NOT REPORTED Normal [facility] Comment on above: Performed By: #### U AMIC #### [facility] [address] [place], [place] [phone] Adjunct Business Instructor: Wang Day MD Other Observations NOT REPORTED [facility] Comment on above: Performed By: #### U AMIC #### [facility] [address] [place], [place] [address] Adjunct Business Instructor: Wang Day MD Trichomonas NOT REPORTED Normal [facility] Comment on above: Performed By: #### U AMIC #### [facility] [address] [place], [place] [phone] Adjunct Business Instructor: Wang Day MD Yeast LM Ql (Urine sed) NOT REPORTED Normal [facility] Comment on above: Performed By: #### U AMIC #### [facility] [address] [place] [address] Adjunct Business Instructor: Wang Day MD Basic Metabolic Profon 12-13 (cont.) Normal [facility] Comment on above: Result Comment: Aver age GFR for 50-59 years old: 93 mL/min/1.73sq m Chronic Kidney Disease: <60 mL/min/1.73sq m Kidney failure: <15 mL/min/1.73sq m eGFR calculated using average adult body mass. Additional eGFR calculator available at: http://www.[employer]/multiple_crcl_2012.htm Performed By: #### C BC, BMP #### [facility] [address] [place], [place] [phone] Adjunct Business Instructor: Sebastián Garsia MD Anion gap [Moles/Vol] 11 mmol/L Normal 9-17 [facility] Comment on above: Performed By: #### C BC, BMP #### [facility] [address] [place], [place] [phone] Adjunct Business Instructor: Sebastián Garsia MD Calcium [Mass/Vol] 8.3 mg/dL Low 8.6-10.4 [facility] Comment on above: Performed By: #### C BC, BMP #### [facility] [address] [place] [address] Adjunct Business Instructor: Sebastián Garsia MD Chloride [Moles/Vol] 106 mmol/L Normal 98-107 [facility] Comment on above: Performed By: #### C BC, BMP #### [facility] [address] [place] [address] Adjunct Business Instructor: Sebastián Garsia MD CO2 [Moles/Vol] 24 mmol/L Normal 20-31 [facility] Comment on above: Performed By: #### C BC, BMP #### [facility] [address] [place] [address] Adjunct Business Instructor: Sebastián Garsia MD Creatinine [Mass/Vol] 0.60 mg/dL Normal 0.50-0.90 [facility] Comment on above: Performed By: #### C BC, BMP #### [facility] [address] [place] [address] Adjunct Business Instructor: Sebastián Garsia MD GFR, Amer >60 Normal >60 [facility] Comment on above: Performed By: #### C BC, BMP #### [facility] [address] [place] [address] Adjunct Business Instructor: Sebastián Garsia MD GFR,non Amer >60 Normal >60 [facility] Comment on above: Performed By: #### C BC, BMP #### [facility] [address] [place] [address] Adjunct Business Instructor: Sebastián Garsia MD Glucose [Mass/Vol] 106 mg/dL High 70-99 [facility] Comment on above: Performed By: #### C BC, BMP #### [facility] [address] [place] [address] Adjunct Business Instructor: Sebastián Garsia MD Potassium [Moles/Vol] 4.4 mmol/L Normal 3.7-5.3 [facility] Comment on above: Performed By: #### C BC, BMP #### [address] [address] Adjunct Business Instructor: Sebastián Garsia MD Sodium [Moles/Vol] 141 mmol/L Normal 135-144 [facility] Comment on above: Performed By: #### C BC, BMP #### [address] [address] Adjunct Business Instructor: Sebastián Garsia MD Urea nitrogen [Mass/Vol] 11 mg/dL Normal -20 [facility] Comment on above: Performed By: #### C BC, BMP #### [facility] [employer] [address] [place] [phone] Adjunct Business Instructor: Sebastián Garsia MD BUN/CRE Ratio NOT REPORTED Normal - [facility] Comment on above: Performed By: #### C BC, BMP #### [address] [address] Adjunct Business Instructor: Sebastián Garsia MD Staging: NOT REPORTED Normal [facility] Comment on above: Performed By: #### C BC, BMP #### [address] [address] Adjunct Business Instructor: Sebastián Garsia MD CBCon 12-13-2018 Erythrocyte distribution width (RBC) [Ratio] 13.1 % Normal 11.8-14.4 [facility] Comment on above: Performed By: #### C BC, BMP #### [facility] [employer] [address] [place] [phone] Adjunct Business Instructor: Sebastián Garsia MD Hematocrit (Bld) [Volume fraction] 35.7 % Low 36.3-47.1 [facility] Comment on above: Performed By: #### C BC, BMP #### [facility] [employer] [address] [place] [phone] Adjunct Business Instructor: Sebastián Garsia MD Hemoglobin (Bld) [Mass/Vol] 11.6 g/dL Low 11.9-15.1 [facility] Comment on above: Performed By: #### C BC, BMP #### [address] [address] Adjunct Business Instructor: Sebastián Garsia MD MCH (RBC) [Entitic mass] 31.6 pg Normal 25.2-33.5 [facility] Comment on above: Performed By: #### C BC, BMP #### [address] [address] Adjunct Business Instructor: Sebastián Garsia MD MCHC (RBC) [Mass/Vol] 32.5 g/dL Normal 28.4-34.8 [facility] Comment on above: Performed By: #### C BC, BMP #### [address] [address] Adjunct Business Instructor: Sebastián Garsia MD MCV (RBC) [Entitic vol] 97.3 fL Normal 82.6-102.9 [facility] Comment on above: Performed By: #### C BC, BMP #### [facility] [employer] [address] [place] [phone] Adjunct Business Instructor: Sebastián Garsia MD NRBC Automated 0.0 per [address] [facility] Comment on above: Performed By: #### C BC, BMP #### [facility] [employer] [address] [place] [phone] Adjunct Business Instructor: Sebastián Garsia MD Platelet mean volume (Bld) [Entitic vol] 10.1 fL Normal 8.1-13.5 [facility] Comment on above: Performed By: #### C BC, BMP #### [facility] [employer] [address] [place] [address] Adjunct Business Instructor: Sebastián Garsia MD Platelets (Bld) [#/Vol] 260 10*3/uL Normal 138-453 [facility] Comment on above: Performed By: #### C BC, BMP #### [facility] [address] [place] [address] Adjunct Business Instructor: Sebastián Garsia MD RBC (Bld) [#/Vol] 3.67 10*6/uL Low 3.95-5.11 [facility] Comment on above: Performed By: #### C BC, BMP #### [facility] [address] [place] [address] Adjunct Business Instructor: Sebastián Garsia MD WBC (Bld) [#/Vol] 9.5 10*3/uL Normal 3.5-11.3 [facility] Comment on above: Performed By: #### C BC, BMP #### [facility] [address] [place] [address] Adjunct Business Instructor: Sebastián Garsia MD Basic Metabolic Profon 12-08 (cont.) Normal [facility] Comment on above: Result Comment: Aver age GFR for 50-59 years old: 93 mL/min/1.73sq m Chronic Kidney Disease: <60 mL/min/1.73sq m Kidney failure: <15 mL/min/1.73sq m eGFR calculated using average adult body mass. Additional eGFR calculator available at: http://www.Rhap[employer].inkSIG Digital/multiple_crcl_2011.htm Performed By: #### C DP, BMP #### [facility] [address] [place] [address] Adjunct Business Instructor: Wang Day MD Anion gap [Moles/Vol] 10 mmol/L Normal -17 [facility] Comment on above: Performed By: #### C DP, BMP #### [facility] [address] [place] [address] Adjunct Business Instructor: Wang Day MD BUN/CRE Ratio 15 Normal - [facility] Comment on above: Performed By: #### C DP, BMP #### [facility] [address] [place], [place] [phone] Adjunct Business Instructor: Wang Day MD Calcium [Mass/Vol] 9.6 mg/dL Normal 8.6-10.4 [facility] Comment on above: Performed By: #### C DP, BMP #### [facility] [address] [place], [place] [address]483 Adjunct Business Instructor: Wang Day MD Chloride [Moles/Vol] 101 mmol/L Normal 98-107 [facility] Comment on above: Performed By: #### C DP, BMP #### [facility] [address] [place], [place] [address] Adjunct Business Instructor: Wang Day MD CO2 [Moles/Vol] 26 mmol/L Normal 20-31 [facility] Comment on above: Performed By: #### C DP, BMP #### [facility] [address] [place], [place] [phone] Adjunct Business Instructor: Wang Day MD Creatinine [Mass/Vol] 0.68 mg/dL Normal 0.50-0.90 [facility] Comment on above: Performed By: #### C DP, BMP #### [facility] [address] [place], [place] [phone] Adjunct Business Instructor: Wang Day MD GFR, Amer >60 Normal >60 [facility] Comment on above: Performed By: #### C DP, BMP #### [facility] [address] [place], [place] [phone] Adjunct Business Instructor: Wang Day MD GFR,non Amer >60 Normal >60 [facility] Comment on above: Performed By: #### C DP, BMP #### [facility] [address] [place], [place] [address]83 Adjunct Business Instructor: Wang Day MD Glucose [Mass/Vol] 95 mg/dL Normal 70-99 [facility] Comment on above: Performed By: #### C DP, BMP #### [facility] [address] [place], [facility]83 Adjunct Business Instructor: Wang Day MD Potassium [Moles/Vol] 4.5 mmol/L Normal 3.7-5.3 [facility] Comment on above: Performed By: #### C DP, BMP #### [facility] [address] [place], [facility]83 Adjunct Business Instructor: Wang Day MD Sodium [Moles/Vol] 137 mmol/L Normal 135-144 [facility] Comment on above: Performed By: #### C DP, BMP #### [facility] [address] [place] [phone] Adjunct Business Instructor: Wang Day MD Staging: Normal [facility] Comment on above: Result Comment: Stag e 1: Some kidney damage normal GFR Stage 2: Mild kidney damage GFR 60-89 Stage 3: Moderate kidney damage GFR 30-59 Stage 4: Severe kidney damage GFR 15-29 Stage 5: Severe kidney damage GFR <15 ESRD - chronic treatment by dialysis or transplant Performed By: #### C DP, BMP #### [address] [place], [facility]83 Adjunct Business Instructor: Wang Day MD Urea nitrogen [Mass/Vol] 10 mg/dL Normal 6-20 [facility] Comment on above: Performed By: #### C DP, BMP #### [facility] [address] [place], [facility]83 Adjunct Business Instructor: Wang Day MD CBC with Diffon 12-08-2018 Abs. Basophil 0.06 k/uL Normal 0.00-0.20 [facility] Comment on above: Performed By: #### C DP, BMP #### [facility] [address] [place] [address] Adjunct Business Instructor: Wang Day MD Abs.Imm.Granulocyte 0.03 k/uL Normal 0.00-0.30 [facility] Comment on above: Performed By: #### C DP, BMP #### [facility] [address] [place] [address] Adjunct Business Instructor: Wang Day MD Abs.Neutrophil (Seg) 5.90 k/uL Normal 1.50-8.10 [facility] Comment on above: Performed By: #### C DP, BMP #### [facility] [address] [place], [place] [address] Adjunct Business Instructor: Wang Day MD Basophils/100 WBC (Bld) 1 % Normal 0-2 [facility] Comment on above: Performed By: #### C DP, BMP #### [address] [place] [address] Adjunct Business Instructor: Wang Day MD Eosinophils (Bld) [#/Vol] 0.16 10*3/uL Normal 0.00-0.44 [facility] Comment on above: Performed By: #### C DP, BMP #### [address] [place], [place] [address] Adjunct Business Instructor: Wang Day MD Eosinophils/100 WBC (Bld) 2 % Normal 1-4 [facility] Comment on above: Performed By: #### C DP, BMP #### [address] [place], [place] [address] Adjunct Business Instructor: Wang Day MD Erythrocyte distribution width (RBC) [Ratio] 12.9 % Normal 11.8-14.4 [facility] Comment on above: Performed By: #### C DP, BMP #### [address] [place] [phone] Adjunct Business Instructor: Wang Day MD Hematocrit (Bld) [Volume fraction] 44.4 % Normal 36.3-47.1 [facility] Comment on above: Performed By: #### C DP, BMP #### [address] [place], [place] [address]83 Adjunct Business Instructor: Wang Day MD Hemoglobin (Bld) [Mass/Vol] 14.3 g/dL Normal 11.9-15.1 [facility] Comment on above: Performed By: #### C DP, BMP #### [facility] [address] [place] [phone] Adjunct Business Instructor: Wang Day MD Immature granulocytes (Bld) [#/Vol] 0 % Normal 0 [facility] Comment on above: Performed By: #### C DP, BMP #### [facility] [address] [place] [facility]83 Adjunct Business Instructor: Wang Day MD Lymphocytes (Bld) [#/Vol] 2.20 10*3/uL Normal 1.10-3.70 [facility] Comment on above: Performed By: #### C DP, BMP #### [facility] [address] [place], [facility]83 Adjunct Business Instructor: Wang Day MD Lymphocytes/100 WBC (Bld) 25 % Normal 24-43 [facility] Comment on above: Performed By: #### C DP, BMP #### [facility] [address] [place], [place] [phone] Adjunct Business Instructor: Wang Day MD MCH (RBC) [Entitic mass] 31.3 pg Normal 25.2-33.5 [facility] Comment on above: Performed By: #### C DP, BMP #### [facility] [address] [place], [facility]83 Adjunct Business Instructor: Wang Day MD MCHC (RBC) [Mass/Vol] 32.2 g/dL Normal 28.4-34.8 [facility] Comment on above: Performed By: #### C DP, BMP #### [facility] [address] [place] [phone] Adjunct Business Instructor: Wang Day MD MCV (RBC) [Entitic vol] 97.2 fL Normal 82.6-102.9 [facility] Comment on above: Performed By: #### C DP, BMP #### [facility] [address] [place], [facility]83 Adjunct Business Instructor: Wang Day MD Monocytes (Bld) [#/Vol] 0.57 10*3/uL Normal 0.10-1.20 [facility] Comment on above: Performed By: #### C DP, BMP #### [facility] [address] [place], [place] [address] Adjunct Business Instructor: Wang Day MD Monocytes/100 WBC (Bld) 6 % Normal 3-12 [facility] Comment on above: Performed By: #### C DP, BMP #### [facility] [address] [place], [place] [address] Adjunct Business Instructor: Wang Day MD Neutrophil (Seg) 66 % High 36-65 [facility] Comment on above: Performed By: #### C DP, BMP #### [facility] [address] [place], [place] [address] Adjunct Business Instructor: Wang Day MD NRBC Automated 0.0 per 100 WBC Normal 0.0 [facility] Comment on above: Performed By: #### C DP, BMP #### [facility] [address] [place], [place] [address] Adjunct Business Instructor: Wang Day MD Platelet mean volume (Bld) [Entitic vol] 9.9 fL Normal 8.1-13.5 [facility] Comment on above: Performed By: #### C DP, BMP #### [facility] [address] [place], [place] [phone] Adjunct Business Instructor: Wang Day MD Platelets (Bld) [#/Vol] 298 10*3/uL Normal 138-453 [facility] Comment on above: Performed By: #### C DP, BMP #### [facility] [address] [place], [place] [address]338683 Adjunct Business Instructor: Wang Day MD RBC (Bld) [#/Vol] 4.57 10*6/uL Normal 3.95-5.11 [facility] Comment on above: Performed By: #### C DP, BMP #### [address] [place] [address] Adjunct Business Instructor: Wang Day MD WBC (Bld) [#/Vol] 8.9 10*3/uL Normal 3.5-11.3 [facility] Comment on above: Performed By: #### C DP, BMP #### [address] [place], [place] [phone] Adjunct Business Instructor: Wang Day MD Auto Diff Performed NOT REPORTED Normal [facility] Comment on above: Performed By: #### C DP, BMP #### [address] [place], [place] [phone] Adjunct Business Instructor: Wang Day MD Platelets (Bld) [#/Vol] NOT REPORTED Normal [facility] Comment on above: Performed By: #### C DP, BMP #### [address] [place] [address] Adjunct Business Instructor: Wang Day MD RBC morphology finding Nom (Bld) NOT REPORTED Normal [facility] Comment on above: Performed By: #### C DP, BMP #### [address] [place] [address] Adjunct Business Instructor: Wang Day MD WBC Morphology NOT REPORTED Normal [facility] Comment on above: Performed By: #### C DP, BMP #### [address] [place] [address] Adjunct Business Instructor: Wang Day MD CARDIAC STRESS TEST 2018 CARDIAC STRESS TEST [address] [place] [address] CARDIAC STRESS TEST PATIENT NAME: FABRIZIO ECKERT : 1965 MED REC NO: [id number] ROOM: ACCOUNT NO: [id number] ADMIT DATE: 12/05/2018 PROVIDER: Rhett Naqvi CARDIOVASCULAR DIAGNOSTIC DEPARTMENT DATE OF STUDY: 12/05/2018 ORDERING PROVIDER: Rhett Naqvi MD PRIMARY CARE PROVIDER: Laura Ramirez CNP INTERPRETING PHYSICIAN: Rhett Naqvi MD EXERCISE STRESS TEST REPORT Stress, exercise stress. INDICATIONS: Diagnosis of coronary disease Assessment of recent chest pain and/or discomfort CLINICAL HISTORY: The patient is a 53-year-old woman with known coronary artery disease. Previous cardiac history includes: CAD, cardiac catheterization, PTCA, myocardial infarction Other previous history includes: Chest pain, palpitations, hypertension Symptoms just prior to testing include: None Relevant medications: Atenolol PROCEDURE: The patient performed treadmill exercise using a Kwesi protocol, completing 3:35 minutes and completing an estimated workload of 5.20 metabolic equivalents (METS). The test was terminated due to fatigue and shortness of breath. The heart rate was 77 beats per minute at baseline and increased to 148 beats at peak exercise, which was 89% of the maximum predicted heart rate. The rest blood pressure was 110/60 mm/Hg and increased to 180/100 mm/Hg, which is a hypertensive response. During the procedure, the patient developed fatigue, shortness of breath, and leg fatigue but denied chest discomfort. STRESS ECG RESULTS: The resting electrocardiogram demonstrated normal sinus rhythm without definitive ST-segment abnormalities suggestive of myocardial ischemia. At peak exercise and during recovery, the patient developed: Upsloping ST segment changes in leads II, III, aVF, V4, V5, V6 which did meet diagnostic criteria for myocardial ischemia with no premature atrial contractions (PACs) and no premature ventricular contractions (PVCs). IMPRESSION: Significant electrocardiographic evidence of myocardial ischemia during EKG monitoring without significant associated arrhythmias. Based on the patient's abnormal exercise stress test results, a repeat study with the addition of cardiac imaging is recommended. The sensitivity for detecting ischemia on this test may have been reduced due to the patient being on a beta es. RHETT NAQVI BETTE/CANDIS_ALEX Doc#: Unknown CC: Laura Ramirez Normal [facility] CBC with Diffon 10-23-2018 Abs. Basophil 0.04 k/uL Normal 0.00-0.20 [facility] Comment on above: Performed By: #### C DP, CPBILC, LIPR, TSHX #### [facility] [address] [place] [address] Adjunct Business Instructor: Wang Day MD Abs.Imm.Granulocyte <0.03 Normal 0.00-0.30 [facility] Comment on above: Performed By: #### C DP, CPBILC, LIPR, TSHX #### [facility] [address] [place] [phone] Adjunct Business Instructor: Wang Day MD Abs.Neutrophil (Seg) 3.34 k/uL Normal 1.50-8.10 [facility] Comment on above: Performed By: #### C DP, CPBILC, LIPR, TSHX #### [facility] [address] [place], [place] [address] Adjunct Business Instructor: Wang Day MD Basophils/100 WBC (Bld) 1 % Normal 0-2 [facility] Comment on above: Performed By: #### C DP, CPBILC, LIPR, TSHX #### [address] [place], [place] [address] Adjunct Business Instructor: Wang Day MD Eosinophils (Bld) [#/Vol] 0.14 10*3/uL Normal 0.00-0.44 [facility] Comment on above: Performed By: #### C DP, CPBILC, LIPR, TSHX #### [facility] [address] [place] [address] Adjunct Business Instructor: Wang Day MD Eosinophils/100 WBC (Bld) 2 % Normal 1-4 [facility] Comment on above: Performed By: #### C DP, CPBILC, LIPR, TSHX #### [facility] [address] [place], [facility]83 Adjunct Business Instructor: Wang Day MD Erythrocyte distribution width (RBC) [Ratio] 13.1 % Normal 11.8-14.4 [facility] Comment on above: Performed By: #### C DP, CPBILC, LIPR, TSHX #### [facility] [address] [place], [place] [address] Adjunct Business Instructor: Wang Day MD Hematocrit (Bld) [Volume fraction] 45.3 % Normal 36.3-47.1 [facility] Comment on above: Performed By: #### C DP, CPBILC, LIPR, TSHX #### [facility] [address] [place] [address] Adjunct Business Instructor: Wang Day MD Hemoglobin (Bld) [Mass/Vol] 14.8 g/dL Normal 11.9-15.1 [facility] Comment on above: Performed By: #### C DP, CPBILC, LIPR, TSHX #### [facility] [address] [place], [place] [address] Adjunct Business Instructor: Wang Day MD Immature granulocytes (Bld) [#/Vol] 0 % Normal 0 [facility] Comment on above: Performed By: #### C DP, CPBILC, LIPR, TSHX #### [facility] [address] [place], [place] [address] Adjunct Business Instructor: Wang Day MD Lymphocytes (Bld) [#/Vol] 1.87 10*3/uL Normal 1.10-3.70 [facility] Comment on above: Performed By: #### C DP, CPBILC, LIPR, TSHX #### [facility] [address] [place], [facility]83 Adjunct Business Instructor: Wang Day MD Lymphocytes/100 WBC (Bld) 33 % Normal 24-43 [facility] Comment on above: Performed By: #### C DP, CPBILC, LIPR, TSHX #### [facility] [address] [place] [address] Adjunct Business Instructor: Wang Day MD MCH (RBC) [Entitic mass] 30.9 pg Normal 25.2-33.5 [facility] Comment on above: Performed By: #### C DP, CPBILC, LIPR, TSHX #### [facility] [address] [place], [place] [phone] Adjunct Business Instructor: Wang Day MD MCHC (RBC) [Mass/Vol] 32.7 g/dL Normal 28.4-34.8 [facility] Comment on above: Performed By: #### C DP, CPBILC, LIPR, TSHX #### [address] [place] [phone] Adjunct Business Instructor: Wang Day MD MCV (RBC) [Entitic vol] 94.6 fL Normal 82.6-102.9 [facility] Comment on above: Performed By: #### C DP, CPBILC, LIPR, TSHX #### [address] [place] [address] Adjunct Business Instructor: Wang Day MD Monocytes (Bld) [#/Vol] 0.34 10*3/uL Normal 0.10-1.20 [facility] Comment on above: Performed By: #### C DP, CPBILC, LIPR, TSHX #### [address] [place] [address] Adjunct Business Instructor: Wang Day MD Monocytes/100 WBC (Bld) 6 % Normal 3-12 [facility] Comment on above: Performed By: #### C DP, CPBILC, LIPR, TSHX #### [facility] [address] [place], [place] [phone] Adjunct Business Instructor: Wang Day MD Neutrophil (Seg) 58 % Normal 36-65 [facility] Comment on above: Performed By: #### C DP, CPBILC, LIPR, TSHX #### [facility] [address] [place], [place] [address] Adjunct Business Instructor: Wang Day MD NRBC Automated 0.0 per 100 WBC Normal 0.0 [facility] Comment on above: Performed By: #### C DP, CPBILC, LIPR, TSHX #### [facility] [address] [place], [place] [address] Adjunct Business Instructor: Wang Day MD Platelet mean volume (Bld) [Entitic vol] 10.2 fL Normal 8.1-13.5 [facility] Comment on above: Performed By: #### C DP, CPBILC, LIPR, TSHX #### [address] [place], [place] [address] Adjunct Business Instructor: Wang Day MD Platelets (Bld) [#/Vol] 297 10*3/uL Normal 138-453 [facility] Comment on above: Performed By: #### C DP, CPBILC, LIPR, TSHX #### [address] [place], [facility]83 Adjunct Business Instructor: Wang Day MD RBC (Bld) [#/Vol] 4.79 10*6/uL Normal 3.95-5.11 [facility] Comment on above: Performed By: #### C DP, CPBILC, LIPR, TSHX #### [facility] [address] [place], [facility]83 Adjunct Business Instructor: Wang Day MD WBC (Bld) [#/Vol] 5.7 10*3/uL Normal 3.5-11.3 [facility] Comment on above: Performed By: #### C DP, CPBILC, LIPR, TSHX #### [facility] [address] [place], [facility]83 Adjunct Business Instructor: Wang Day MD Auto Diff Performed NOT REPORTED Normal [facility] Comment on above: Performed By: #### C DP, CPBILC, LIPR, TSHX #### [facility] [address] [place], [place] [phone] Adjunct Business Instructor: Wang Day MD Platelets (Bld) [#/Vol] NOT REPORTED Normal [facility] Comment on above: Performed By: #### C DP, CPBILC, LIPR, TSHX #### [facility] [address] [place], [place] [phone] Adjunct Business Instructor: Wang Day MD RBC morphology finding Nom (Bld) NOT REPORTED [facility] Comment on above: Performed By: #### C DP, CPBILC, LIPR, TSHX #### [facility] [address] [place], [place] [phone] Adjunct Business Instructor: Wang Day MD WBC Morphology NOT REPORTED Normal [facility] Comment on above: Performed By: #### C DP, CPBILC, LIPR, TSHX #### [facility] [address] [place], [place] [phone] Adjunct Business Instructor: Wang Day MD Cardiacon 10-23-2018 Cholesterol [Mass/Vol] 218 mg/dL High (<200) [facility] Work Phone: Comment on above: Note: Cholesterol Gu idelines: <200 Desirable 200-240 Borderline >240 Undesirable Responsible Observer: JOSIE MCCRACKEN (1831) Triglyceride [Mass/Vol] 131 mg/dL (<150) [facility] Work Phone: Comment on above: Note: Triglyceride G uidelines: <150 Desirable 150-199 Borderline 200-499 High >499 Very high Based on AHA Guidelines for fasting triglyceride, February 2012. Responsible Observer: JOSIE MCCRACKEN (1831) Comp Metab w/Bili Pron 10-23 (cont.) Normal [facility] Comment on above: Result Comment: Aver age GFR for 50-59 years old: 93 mL/min/1.73sq m Chronic Kidney Disease: <60 mL/min/1.73sq m Kidney failure: <15 mL/min/1.73sq m eGFR calculated using average adult body mass. Additional eGFR calculator available at: http://www.[employer]/multiple_crcl_2012.htm Performed By: #### C DP, CPBILC, LIPR, TSHX #### [facility] [address] [place], [place] [phone] Adjunct Business Instructor: Wang Day MD Albumin [Mass/Vol] 4.2 g/dL Normal 3.5-5.2 [facility] Comment on above: Performed By: #### C DP, CPBILC, LIPR, TSHX #### [facility] [address] [place], [place] [phone] Adjunct Business Instructor: Wang Day MD Albumin/Globulin [Mass ratio] 1.2 {ratio} Normal 1.0-2.5 [facility] Comment on above: Performed By: #### C DP, CPBILC, LIPR, TSHX #### [facility] [address] [place], [place] [phone] Adjunct Business Instructor: Wang Day MD Alkaline Phos 101 U/L Normal 35-104 [facility] Comment on above: Performed By: #### C DP, CPBILC, LIPR, TSHX #### [facility] [address] [place], [place] [phone] Adjunct Business Instructor: Wang Day MD ALT [Catalytic activity/Vol] 15 U/L Normal 5-33 [facility] Comment on above: Performed By: #### C DP, CPBILC, LIPR, TSHX #### [facility] [address] [place], [place] [phone] Adjunct Business Instructor: Wang Day MD Anion gap [Moles/Vol] 12 mmol/L Normal 9-17 [facility] Comment on above: Performed By: #### C DP, CPBILC, LIPR, TSHX #### [facility] [address] [place], [place] [phone] Adjunct Business Instructor: Wang Day MD AST [Catalytic activity/Vol] 15 U/L Normal <32 [facility] Comment on above: Performed By: #### C DP, CPBILC, LIPR, TSHX #### [facility] [address] [place], [place] [phone] Adjunct Business Instructor: Wang Day MD Bilirubin Ql (U) 0.24 mg/dL Low 0.3-1.2 [facility] Comment on above: Performed By: #### C DP, CPBILC, LIPR, TSHX #### [facility] [address] [place], [place] [address] Adjunct Business Instructor: Wang Day MD Bilirubin, Indirect CANNOT BE CALCULATED Normal 0.00-1 .00 [facility] Comment on above: Performed By: #### C DP, CPBILC, LIPR, TSHX #### [facility] [address] [place], [place] [phone] Adjunct Business Instructor: Wang Day MD Bilirubin.direct [Mass/Vol] mg/dL Normal <0.31 [facility] Comment on above: Performed By: #### C DP, CPBILC, LIPR, TSHX #### [facility] [address] [place], [place] [phone] Adjunct Business Instructor: Wang Day MD Calcium [Mass/Vol] 9.3 mg/dL Normal 8.6-10.4 [facility] Comment on above: Performed By: #### C DP, CPBILC, LIPR, TSHX #### [facility] [address] [place], [place] [address]83 Adjunct Business Instructor: Wang Day MD Chloride [Moles/Vol] 102 mmol/L Normal 98-107 [facility] Comment on above: Performed By: #### C DP, CPBILC, LIPR, TSHX #### [facility] [address] [place], [place] [phone] Adjunct Business Instructor: Wang Day MD CO2 [Moles/Vol] 27 mmol/L Normal 20-31 [facility] Comment on above: Performed By: #### C DP, CPBILC, LIPR, TSHX #### [facility] [address] [place], [place] [phone] Adjunct Business Instructor: Wang Day MD Creatinine [Mass/Vol] 0.64 mg/dL Normal 0.50-0.90 [facility] Comment on above: Performed By: #### C DP, CPBILC, LIPR, TSHX #### [facility] [address] [place], [place] [phone] Adjunct Business Instructor: Wang Day MD GFR, Amer >60 Normal >60 [facility] Comment on above: Performed By: #### C DP, CPBILC, LIPR, TSHX #### [facility] [address] [place], [place] [address] Adjunct Business Instructor: Wang Day MD GFR,non Amer >60 Normal >60 [facility] Comment on above: Performed By: #### C DP, CPBILC, LIPR, TSHX #### [address] [place], [place] [address]483 Adjunct Business Instructor: Wang Day MD Glucose [Mass/Vol] 123 mg/dL High 70-99 [facility] Comment on above: Performed By: #### C DP, CPBILC, LIPR, TSHX #### [facility] [address] [place] [address] Adjunct Business Instructor: Wang Day MD Potassium [Moles/Vol] 4.6 mmol/L Normal 3.7-5.3 [facility] Comment on above: Performed By: #### C DP, CPBILC, LIPR, TSHX #### [facility] [address] [place] [address] Adjunct Business Instructor: Wang Day MD Protein [Mass/Vol] 7.6 g/dL Normal 6.4-8.3 [facility] Comment on above: Performed By: #### C DP, CPBILC, LIPR, TSHX #### [facility] [address] [place] [address] Adjunct Business Instructor: Wang Day MD Sodium [Moles/Vol] 141 mmol/L Normal 135-144 [facility] Comment on above: Performed By: #### C DP, CPBILC, LIPR, TSHX #### [facility] [address] [place] [address] Adjunct Business Instructor: Wang Day MD Staging: Normal [facility] Comment on above: Result Comment: Stag e 1: Some kidney damage normal GFR Stage 2: Mild kidney damage GFR 60-89 Stage 3: Moderate kidney damage GFR 30-59 Stage 4: Severe kidney damage GFR 15-29 Stage 5: Severe kidney damage GFR <15 ESRD - chronic treatment by dialysis or transplant Performed By: #### C DP, CPBILC, LIPR, TSHX #### [address] [place] [address] Adjunct Business Instructor: Wang Day MD Urea nitrogen [Mass/Vol] 15 mg/dL Normal 6-20 [facility] Comment on above: Performed By: #### C DP, CPBILC, LIPR, TSHX #### [facility] [address] [place] [address] Adjunct Business Instructor: Wang Day MD Hematologyon 10-23-2018 Basophils/100 WBC (Bld) 1 % (0-2) [facility] Work Phone: Comment on above: Note: Responsible Ob process server: XNT AUTOFILE (5107) Eosinophils (Bld) [#/Vol] 0.14 10*3/uL (0.00-0.44) [facility] Work Phone: Comment on above: Note: Responsible Ob process server: XNT AUTOFILE (3019) Eosinophils/100 WBC (Bld) 2 % (1-4) [facility] Work Phone: Comment on above: Note: Responsible Ob process server: XNT AUTOFILE (3019) Hematocrit (Bld) [Volume fraction] 45.3 % (36.3-47.1) [facility] Work Phone: Comment on above: Note: Responsible Ob process server: XNT AUTOFILE (3019) Hemoglobin (Bld) [Mass/Vol] 14.8 g/dL (11.9-15.1) [facility] Work Phone: Comment on above: Note: Responsible Ob process server: XNT AUTOFILE (3019) Lymphocytes (Bld) [#/Vol] 1.87 10*3/uL (1.10-3.70) [facility] Work Phone: Comment on above: Note: Responsible Ob process server: XNT AUTOFILE (3019) Lymphocytes/100 WBC (Bld) 33 % (24-43) [facility] Work Phone: Comment on above: Note: Responsible Ob process server: XNT AUTOFILE (3019) MCH (RBC) [Entitic mass] 30.9 pg (25.2-33.5) [facility] Work Phone: Comment on above: Note: Responsible Ob process server: XNT AUTOFILE (3019) MCV (RBC) [Entitic vol] 94.6 fL (82.6-102.9) [facility] Work Phone: Comment on above: Note: Responsible Ob process server: XNT AUTOFILE (3019) Monocytes (Bld) [#/Vol] 0.34 10*3/uL (0.10-1.20) [facility] Work Phone: Comment on above: Note: Responsible Ob process server: XNT AUTOFILE (3019) Monocytes/100 WBC (Bld) 6 % (3-12) [facility] Work Phone: Comment on above: Note: Responsible Ob process server: XNT AUTOFILE (9) Platelets (Bld) [#/Vol] NOT REPORTED [facility] Work Phone: Platelets (Bld) [#/Vol] 297 10*3/uL (138-453) [facility] Work Phone: Comment on above: Note: Responsible Ob process server: XNT AUTOFILE (3018) RBC (Bld) [#/Vol] 4.79 10*6/uL (3.95-5.11) [facility] Work Phone: Comment on above: Note: Responsible Ob process server: XNT AUTOFILE (3018) RBC morphology finding Nom (Bld) NOT REPORTED [facility] Work Phone: WBC (Bld) [#/Vol] 0.0 per_100_WBC (0.0) [facility] Work Phone: Comment on above: Note: Responsible Ob process server: XNT AUTOFILE (3018) WBC (Bld) [#/Vol] 5.7 10*3/uL (3.5-11.3) [facility] Work Phone: Comment on above: Note: Responsible Ob process server: XNT AUTOFILE (3018) Lipid Profileon 10-23-2018 Cholesterol [Mass/Vol] 218 mg/dL High <200 [facility] Comment on above: Result Comment: Cholesterol Guidelines: <200 Desirable 200-240 Borderline >240 Undesirable Performed By: #### C DP, CPBILC, LIPR, TSHX #### [facility] [address] [place] [address] Adjunct Business Instructor: Wang Day MD Cholesterol in HDL [Mass/Vol] 57 mg/dL Normal >40 [facility] Comment on above: Result Comment: HDL Guidelines: <40 Undesirable 40-59 Borderline >59 Desirable Performed By: #### C DP, CPBILC, LIPR, TSHX #### [facility] [address] [place], [place] [phone] Adjunct Business Instructor: Wang Day MD Cholesterol in LDL [Mass/Vol] 135 mg/dL High 0-130 [facility] Comment on above: Result Comment: LDL Guidelines: <100 Desirable 100-129 Near to/above Desirable 130-159 Borderline >159 Undesirable Direct (measured) LDL and calculated LDL are not interchangeable tests. Performed By: #### C DP, CPBILC, LIPR, TSHX #### [facility] [address] [place], [place] [address] Adjunct Business Instructor: Wang Day MD Cholesterol.total/C holesterol in HDL [Mass ratio] 3.8 {ratio} Normal <5 [facility] Comment on above: Performed By: #### C DP, CPBILC, LIPR, TSHX #### [facility] [address] [place] [address] Adjunct Business Instructor: Wang Day MD Triglyceride [Mass/Vol] 131 mg/dL Normal <150 [facility] Comment on above: Result Comment: Triglyceride Guidelines: <150 Desirable 150-199 Borderline 200-499 High >499 Very high Based on AHA Guidelines for fasting triglyceride, February 2012. Performed By: #### C DP, CPBILC, LIPR, TSHX #### [facility] [address] [place] [address] Adjunct Business Instructor: Wang Day MD Cholesterol in VLDL [Mass/Vol] NOT REPORTED Normal 30 [facility] Comment on above: Performed By: #### C DP, CPBILC, LIPR, TSHX #### [facility] [address] [place] [address] Adjunct Business Instructor: Wang Day MD Metabolic Panelon 10-23-2018 Albumin [Mass/Vol] 4.2 g/dL (3.5-5.2) [facility] Work Phone: Comment on above: Note: Responsible Ob process server: JOSIE Nichols1831) ALT [Catalytic activity/Vol] 15 U/L (5-33) [facility] Work Phone: Comment on above: Note: Responsible Ob process server: JOSIE CHRISS-LILGE (1831) Anion gap [Moles/Vol] 12 mmol/L (9-17) [facility] Work Phone: Comment on above: Note: Responsible Ob process server: JOSIE VEShashankDOS-LILGE (1831) AST [Catalytic activity/Vol] 15 U/L (<32) [facility] Work Phone: Comment on above: Note: Responsible Ob process server: JOSIE CHRISS-LILGE (1831) Bilirubin [Mass/Vol] 0.24 mg/dL Low (0.3-1.2) [facility] Work Phone: Comment on above: Note: Responsible Ob process server: JOSIE CHRISS-LILCURTIS (1831) Bilirubin.direct [Mass/Vol] mg/dL (<0.31) [facility] Work Phone: Comment on above: Note: Responsible Ob process server: JOSIE CHRISS-LILCURTIS (1831) Calcium [Mass/Vol] 9.3 mg/dL (8.6-10.4) [facility] Work Phone: Comment on above: Note: Responsible Ob process server: JOSIE CHRISS-LILCURTIS (1831) Chloride [Moles/Vol] 102 mmol/L (98-107) [facility] Work Phone: Comment on above: Note: Responsible Ob process server: JOSIE VEZDOS-LILGE (1831) CO2 [Moles/Vol] 27 mmol/L (20-31) [facility] Work Phone: Comment on above: Note: Responsible Ob process server: JOSIE PAVITHRAZDOS-LILGE (1831) Creatinine [Mass/Vol] 0.64 mg/dL (0.50-0.90) [facility] Work Phone: Comment on above: Note: Responsible Ob process server: JOSIE MCCRACKEN (1831) Glucose [Mass/Vol] 123 mg/dL High (70-99) [facility] Work Phone: Comment on above: Note: Responsible Ob process server: JOSIE MCCRACKEN (1831) Potassium [Moles/Vol] 4.6 mmol/L (3.7-5.3) [facility] Work Phone: Comment on above: Note: Responsible Ob process server: JOSIE MCCRACKEN (1831) Protein [Mass/Vol] 7.6 g/dL (6.4-8.3) [facility] Work Phone: Comment on above: Note: Responsible Ob process server: JOSIE MCCRACKEN (1831) Sodium [Moles/Vol] 141 mmol/L (135-144) [facility] Work Phone: Comment on above: Note: Responsible Ob process server: JOSIE MCCRACKEN (1831) Urea nitrogen [Mass/Vol] 15 mg/dL (6-20) [facility] Work Phone: Comment on above: Note: Responsible Ob process server: JOSIE MCCRACKEN (1831) Otheron 10-23-2018 (cont.) See Note [facility] Work Phone: Comment on above: Note: Average GFR fo r 50-59 years old: 93 mL/min/1.73sq mChronic Kidney Disease: <60 mL/min/1.73sq mKidney failure: <15 mL/min/1.73sq m eGFR calculated using average adult body mass. Additional eGFR calculator available at: http://www.[employer]/multiple_crcl_2011.htm Responsible Observer: JOSIE MCCRACKEN (1831) Abs. Basophil 0.04 k/uL (0.00-0.20) [facility] Work Phone: Comment on above: Note: Responsible Ob process server: XNT AUTOFILE (3019) Abs.Imm.Granulocyte <0.03 k/uL (0.00-0.30) [facility] Work Phone: Comment on above: Note: Responsible Ob process server: XNT AUTOFILE (3019) Abs.Neutrophil (Seg) 3.34 k/uL (1.50-8.10) [facility] Work Phone: Comment on above: Note: Responsible Ob process server: XNT AUTOFILE (3019) Albumin/Glob Ratio 1.2 (1.0-2.5) [facility] Work Phone: Comment on above: Note: Responsible Ob process server: JOSIE MCCRACKEN (1831) Alkaline Phos 101 U/L (35-104) [facility] Work Phone: Comment on above: Note: Responsible Ob process server: JOSIE MCCRACKEN (1831) Auto Diff Performed NOT REPORTED [facility] Work Phone: Bilirubin, Indirect CANNOT BE CALCULATED mg/dL (0.00-1.00) [facility] Work Phone: Comment on above: Note: Responsible Ob process server: JOSIE MCCRACKEN (1831) Cholesterol,HDL 57 mg/dL (>40) [facility] Work Phone: Comment on above: Note: HDL Guidelines : <40 Undesirable 40-59 Borderline >59 Desirable Responsible Observer: JOSIE MCCRACKEN (1831) Cholesterol,LDL 135 mg/dL High (0-130) [facility] Work Phone: Comment on above: Note: LDL Guidelines : <100 Desirable 100-129 Near to/above Desirable 130-159 Borderline >159 Undesirable Direct (measured) LDL and calculated LDL are not interchangeable tests.Responsible Observer: JOSIE MCCRACKEN (1831) Cholesterol,VLDL NOT REPORTED mg/dL (1-30) [facility] Work Phone: Cholesterol.total/C holesterol in HDL [Mass ratio] 3.8 {ratio} (<5) [facility] Work Phone: Comment on above: Note: Responsible Ob process server: JOSIE MCCRACKEN ([id number]) Erythrocyte distribution width (RBC) [Ratio] 13.1 % (11.8-14.4) [facility] Work Phone: Comment on above: Note: Responsible Ob process server: XNT AUTOFILE (3018) GFR, Amer >60 mL/min (>60) [facility] Work Phone: Comment on above: Note: Responsible Ob process server: JOSIE MCCRACKEN ([id number]) GFR,non Amer >60 mL/min (>60) [facility] Work Phone: Comment on above: Note: Responsible Ob process server: JOSIE MCCRACKEN ([id number]) Immature granulocytes (Bld) [#/Vol] 0 % (0) [facility] Work Phone: Comment on above: Note: Responsible Ob process server: XNT AUTOFILE (3018) MCHC (RBC) [Mass/Vol] 32.7 g/dL (28.4-34.8) [facility] Work Phone: Comment on above: Note: Responsible Ob process server: XNT AUTOFILE (3018) Performing Lab: see note [facility] Work Phone: Comment on above: Note: [facility] [address] [place] [address] Platelet mean volume (Bld) [Entitic vol] 10.2 fL (8.1-13.5) [facility] Work Phone: Comment on above: Note: Responsible Ob process server: XNT AUTOFILE (3018) Reported Physicians See Note [facility] Work Phone: Comment on above: Note: Reported Physi cians:Ordering: Laura Ramireztending: Eloy RamirezaReferring: Laura Ramirez Segmented neutrophils/100 WBC (Bld) 58 % (36-65) [facility] Work Phone: Comment on above: Note: Responsible Ob process server: XNT AUTOFILE (1867) Staging: See Note [facility] Work Phone: Comment on above: Note: Stage 1: Some kidney damage normal GFRStage 2: Mild kidney damage GFR 60-89Stage 3: Moderate kidney damage GFR 30-59Stage 4: Severe kidney damage GFR 15-29Stage 5: Severe kidney damage GFR <15ESRD - chronic treatment by dialysis or transplantResponsible Observer: JOSIE MCCRACKEN ([id number]) Thyroid Stim. Horm. 1.27 mIU/L (0.30-5.00) [facility] Work Phone: Comment on above: Note: Responsible Ob process server: JOSIE MCCRACKEN ([id number]) WBC Morphology NOT REPORTED [facility] Work Phone: TSH w/reflex to FT4on 2018 TSH Qn 1.27 m[IU]/L Normal 0.30-5.00 [facility] Comment on above: Performed By: #### C DP, CPBILC, LIPR, TSHX #### [facility] [address] [place] [address] Adjunct Business Instructor: Wang Day MD Vital Signs Date Time Vital Sign Value Performing Clinician Facility 07-03-2020 14:59-0500 BMI (Body Mass Index) 36.4 kg/m2 [facility] Work Phone: 07-03-2020 14:59-0500 Body Temperature 96.5 [degF] [facility] Work Phone: 07-03-2020 14:59-0500 Body weight 99.34 kg [facility] Work Phone: 07-03-2020 14:59-0500 BP Diastolic 72 mm[Hg] [facility] Work Phone: 07-03-2020 14:59-0500 BP Systolic 122 mm[Hg] [facility] Work Phone: 07-03-2020 14:59-0500 BSA (Body Surface Area) 2.06 m2 [facility] Work Phone: 07-03-2020 14:59-0500 Height 165.1 cm [facility] Work Phone: 07-03-2020 14:59-0500 Pulse (Heart Rate) 91 /min [facility] Work Phone: 07-03-2020 14:59-0500 Pulse Oximetry 98 % [facility] Work Phone: 07-03-2020 14:59-0500 Respiratory Rate 18 /min [facility] Work Phone: 06-27-2020 16:08-0500 BMI (Body Mass Index) 33.3 kg/m2 [facility] Work Phone: 06-27-2020 16:08-0500 Body weight 90.72 kg [facility] Work Phone: 06-27-2020 16:08-0500 BSA (Body Surface Area) 1.98 m2 [facility] Work Phone: 06-27-2020 16:08-0500 Height 165.1 cm [facility] Work Phone: 04-30-2020 17:49-0500 BMI (Body Mass Index) 34.3 kg/m2 [facility] Work Phone: 04-30-2020 17:49-0500 Body weight 90.72 kg [facility] Work Phone: 04-30-2020 17:49-0500 BSA (Body Surface Area) 1.96 m2 [facility] Work Phone: 04-30-2020 17:49-0500 Height 162.56 cm [facility] Work Phone: 11-16-2019 10:07-0400 BMI (Body Mass Index) 34.3 kg/m2 [facility] Work Phone: Comment on above: per patient report 11-16-2019 10:07-0400 Body weight 90.72 kg [facility] Work Phone: Comment on above: per patient report 11-16-2019 10:07-0400 BSA (Body Surface Area) 1.96 m2 [facility] Work Phone: Comment on above: per patient report 11-16-2019 10:07-0400 Height 162.56 cm [facility] Work Phone: Comment on above: per patient report 09-24-2019 13:33-0400 BMI (Body Mass Index) 33.7 kg/m2 [facility] Work Phone: Comment on above: per pt report 09-24-2019 13:33-0400 Body weight 86.18 kg [facility] Work Phone: Comment on above: per pt report 09-24-2019 13:33-0400 BSA (Body Surface Area) 1.89 m2 [facility] Work Phone: Comment on above: per pt report 09-24-2019 13:33-0400 Height 160.02 cm [facility] Work Phone: Comment on above: per pt report 04-25-2019 11:12-0500 BMI (Body Mass Index) 32.3 kg/m2 Laura Sean [facility] Work Phone: 04-25-2019 11:12-0500 Body Temperature 97.6 [degF] [facility] 04-25-2019 11:12-0500 Body weight 88.17 kg [facility] Work Phone: 04-25-2019 11:12-0500 BP Diastolic 82 mm[Hg] [facility] 04-25-2019 11:12-0500 BP Systolic 128 mm[Hg] [facility] Work Phone: 04-25-2019 11:12-0500 BSA (Body Surface Area) 1.95 m2 [facility] Work Phone: 04-25-2019 11:12-0500 Flow Rate 0 L/min [facility] Work Phone: 04-25-2019 11:12-0500 Height 165.1 cm [facility] Work Phone: 04-25-2019 11:12-0500 Inhaled Oxygen Concentration 21 % [facility] Work Phone: 04-25-2019 11:12-0500 Pulse (Heart Rate) 75 /min Laura Whitesburg [facility] Work Phone: 04-25-2019 11:12-0500 Pulse Oximetry 99 % [facility] Work Phone: 04-25-2019 11:12-0500 Respiratory Rate 18 /min [facility] Work Phone: 09-14-2018 11:34-0400 BMI (Body Mass Index) 32.8 kg/m2 [facility] 09-14-2018 11:34-0400 Body Temperature 99.1 [degF] [facility] Work Phone: 09-14-2018 11:34-0400 Body weight 89.36 kg [facility] Work Phone: 09-14-2018 11:34-0400 BP Diastolic 72 mm[Hg] [facility] Work Phone: 09-14-2018 11:34-0400 BP Systolic 134 mm[Hg] [facility] Work Phone: 09-14-2018 11:34-0400 BSA (Body Surface Area) 1.97 m2 [facility] Work Phone: 09-14-2018 11:34-0400 Flow Rate 0 L/min [facility] Work Phone: 09-14-2018 11:34-0400 Height 165.1 cm [facility] Work Phone: 09-14-2018 11:34-0400 Inhaled Oxygen Concentration 21 % [facility] Work Phone: 09-14-2018 11:34-0400 Pulse (Heart Rate) 80 /min [facility] Work Phone: 09-14-2018 11:34-0400 Pulse Oximetry 98 % [facility] Work Phone: 09-14-2018 11:34-0400 Respiratory Rate 20 /min [facility] Work Phone: Encounters Encounter Date Encounter Type Care Provider Facility Start: 05-19-2023 End: 05-19-2023 ambulatory SHAIKH JONO Not Available Start: 01-31-2023 End: 02-01-2023 ambulatory Calin ESTEVEZ Facility:[facility] Start: 04-28-2022 End: 04-28-2022 ambulatory PAL ANDERSON Facility:[facility] Start: 02-17-2022 End: 02-18-[address] FABIANA CAPONE Facility:[facility] Start: 11-17-2021 End: 11-18-2021 ambulatory SHAIKH Sobeida VANGRADHA Facility:[facility] Start: 10-14-2021 End: 10-14-2021 ambulatory PAL ANDERSON Facility:[facility] Start: 10-13-2021 End: 10-13-2021 ambulatory Sobeida JONO Facility:[facility] Start: 09-26-2020 End: 01-19-2022 ambulatory None Provider Facility:[facility] Start: 07-03-2020 End: 07-03-2020 Established patient Laverne Garrett Work Phone: [facility] Work Phone: Start: 07-03-2020 End: 07-03-2020 Established patient Suzi Khanna Work Phone: [facility] Work Phone: Start: 06-27-2020 End: 06-27-2020 Telemedicine consultation with patient Suzi Khanna Work Phone: [facility] Work Phone: Start: 04-30-2020 End: 04-30-2020 General Jo Velazquez Work Phone: [facility] Work Phone: Start: 04-30-2020 End: 04-30-2020 Telemedicine consultation with patient Thalia Block Work Phone: [facility] Work Phone: Start: 11-16-2019 End: 11-16-2019 Telemedicine consultation with patient Suzi Khanna Work Phone: [facility] Work Phone: Start: 09-24-2019 End: 09-24-2019 Telemedicine consultation with patient Suzi Khanna Work Phone: [facility] Work Phone: Start: 05-24-2019 End: 05-24-2019 Patient encounter procedure Carlitos Summers Work Phone: [facility] Work Phone: Start: 05-18-2019 End: 05-18-2019 Patient encounter procedure Maulik Geiger Work Phone: [facility] Work Phone: Start: 04-25-2019 End: 04-28-2019 Patient encounter procedure LAURA Nichols [facility] Start: 04-25-2019 End: 04-25-2019 Established patient Princess Blackmon Work Phone: [facility]Gene Langley [facility] Work Phone: Start: 04-25-2019 End: 04-25-2019 Patient encounter procedure Maulik Geiger Work Phone: [facility] Work Phone: Start: 04-18-2019 End: 04-18-2019 Patient encounter procedure Laura Ramirez Work Phone: [facility] Work Phone: Start: 04-17-2019 Comprehensve oral evaluation Carlitos Summers Work Phone: [facility] Work Phone: Start: 04-17-2019 End: 04-17-2019 Emergency department patient visit Carlitos Summers Work Phone: [facility] Work Phone: Start: 12-17-2018 End: 12-18-2018 Emergency department patient visit LAURA A [facility] Start: 12-12-2018 End: 12-13-2018 Patient encounter procedure KAYLA FREEMAN [facility] Start: 12-08-2018 End: 12-09-2018 Patient encounter procedure [facility] Start: 12-05-2018 End: 12-06-2018 Patient encounter procedure [facility] Start: 10-23-2018 End: 10-24-2018 Patient encounter procedure LAURA Nichols [facility] Start: 09-14-2018 End: 09-14-2018 New patient Laura Ramirez Work Phone: [facility] Work Phone: Procedures Date Procedure Procedure Detail Performing Clinician Start: 07-03-2020 Hemoglobin glycosylated a1c Suzi Khanna Work Phone: Start: 07-03-2020 Hepatitis c antibody An rivka Khanna Work Phone: Start: 07-03-2020 Psychotherapy w/judith ent 30 minutes Laverne Garrett Work Phone: Start: 07-03-2020 Pt-focused hlth risk assmt score doc stnd instrm Suzi Khanna Work Phone: Start: 04-30-2020 Psychotherapy w/judith ent 30 minutes Jowesley Velazquez Work Phone: Start: 04-30-2020 Pt tobacco screen rcvd tlk Thalia Block Work Phone: Start: 11-16-2019 Blood occult fecal h gb deter ia qual feces 1-3 Suzi Khanna Work Phone: Start: 05-24-2019 Caries risk assess h igh risk Carlitos Maysjonathon Work Phone: Start: 05-24-2019 Intraor complete keke m series Carlitos Maysjonathon Work Phone: Start: 04-25-2019 Radex hand minimum 3 views RHETT NAQVI Start: 04-25-2019 Psychotherapy w/judith ent 30 minutes Princess Blackmon Work Phone: Start: 04-25-2019 Pt tobacco screen rcvd tlk Laura Whitesburg Work Phone: Start: 04-17-2019 Panoramic image Carlitos Maysjonathon Work Phone: Start: 12-17-2018 Blood count complete auto&auto difrntl wbc RHETT AHMAD Start: 12-17-2018 C-reactive protein RHETT STEINBERGMAD Start: 12-17-2018 Urnls dip stick/tabl et reagent auto microscopy ALI AHMAD Start: 12-13-2018 AMB REFERRAL TO CARD IAC REHAB KAYLA FREEMAN Start: 12-13-2018 DISCHARGE PATIENT KAYLA FREEMAN Start: 12-13-2018 DIET CARDIAC KAYLA CUNNINGHAM UR Start: 12-13-2018 COMPANY ACCOUNTANT REPORT KAYLA SHAH Start: 12-13-2018 INITIATE OXYGEN THER APY PROTOCOL KAYLA FREEMAN Start: 12-13-2018 Basic metabolic pane l calcium total KAYLA FREEMAN Start: 12-13-2018 Blood count complete automated KAYLA FREEMAN Start: 12-12-2018 FULL CODE KAYLA CUNNINGHAM UR Start: 12-12-2018 INITIATE OXYGEN THER APY PROTOCOL KAYLA FREEMAN Start: 12-12-2018 NOTIFY PHYSICIAN (SPECIFY) KAYLA FREEMAN Start: 12-12-2018 NURSING COMMUNICATION A KENNEDY PETE Start: 12-12-2018 PUNCTURE SITE CARE JESSICA FREEMAN Start: 12-12-2018 BEDREST KAYLA CUNNINGHAM UR Start: 12-12-2018 PATIENT STATUS (FROM ED OR OR/PROCEDURAL) KAYLA FREEMAN Start: 12-12-2018 TELEMETRY MONITORING MOI FREEMAN Start: 12-12-2018 VITAL SIGNS KAYLA CUNNINGHAM UR Start: 12-12-2018 WOUND CARE KAYLA CUNNINGHAM UR Start: 12-12-2018 PATIENT STATUS (FROM ED OR OR/PROCEDURAL) KAYLA FREEMAN Start: 12-12-2018 ACTIVATED CLOTTING TIME KAYLA FREEMAN Start: 12-12-2018 R & l hrt cath w/njx l ventriculog img s&i KAYLA FREEMAN Start: 12-12-2018 VERIFY INFORMED CONSENT KAYLA FREEMAN Start: 12-12-2018 COMPANY ACCOUNTANT REPORT KAYLA SHAH Start: 12-08-2018 Basic metabolic pane l calcium total RHETT AHMAD Start: 12-08-2018 Blood count complete auto&auto difrntl wbc RHETT AHMAD Start: 12-05-2018 Cv strs tst xers&/or rx cont ecg w/o i&r RHETT AHMAD Start: 12-05-2018 Echo tthrc r-t 2d w/wom-mode compl spec&colr d RHETT AHMAD Start: 10-23-2018 Assay of thyroid stimulating hormone tsh RHETT AHMAD Start: 10-23-2018 Blood count complete auto&auto difrntl wbc RHETT NAQVI Start: 10-23-2018 Comprehensive metabo lic panel RHETT LACKEYJenni Start: 10-23-2018 Lipid panel RHETT LACKEYJenni Start: 09-14-2018 ANXIETY DISORDER NOS Cy alonzo Ramirez Start: 09-14-2018 DEPRESSION Laura Angelina dalton Start: 09-14-2018 HYPERTENSION (SYSTEMIC) Laura Sean Start: 09-14-2018 Lig/trnsxj flp tube abdl/vag appr uni/bi Suzi Khanna Start: 09-14-2018 Ligation of fallopian tube Laura Whitesburg Start: 09-14-2018 past medical/surgica l history [use for free text] Laura Sean Start: 09-14-2018 Surgical procedure Cynt paulapilo Ramirez Plan of Treatment Date Care Activity Detail Author Start: 06-30-2020 Medical Establ ished Patient [facility] Work Phone: Start: 05-30-2020 _SARS-CoV-2 COVID19 ariel t [facility] Work Phone: Start: 05-15-2020 Telemedicine E stablisted Patient [facility] Work Phone: Start: 11-17-2019 Stool Kit Sharon Ross se [facility] Work Phone: Start: 05-29-2019 Medical Establ ished Patient [facility] Work Phone: Start: 05-25-2019 XR Hand 3 Views ([id number]) [facility] Work Phone: Start: 05-10-2019 Dental Miscellaneous Ti [facility] Work Phone: Start: 04-25-2019 [facility] Work Phone: Comment on above: Note: Please make a referral to:Deformed thick great toe nail, nail fungus Start: 09-14-2018 [facility]iology [facility] Work Phone: Comment on above: Note: Please make a referral to: Payers Date Payer Category Payer Unknown [id number] 1965 Unknown [id number] 2.16.8 [id number] 1964 Unknown [id number] 2.16.8 [id number] 1964 Unknown [id number] 2.16.8 [id number] 1964 Unknown [id number] 2.16.8 [id number] 1964 Unknown [id number] 2.16.8 [id number] 1964 Unknown [id number] 2.16.8 [id number] 1964 Unknown [id number] 2.16.8 [id number] 1964 Unknown [id number] 2.16.8 [id number] 1964 Unknown [id number] 2.16.84 [id number] 1964 Unknown [id number] 2.16.84 [id number] 1964 Unknown [id number] 2.16.84 [id number] 1964 Unknown [id number] 2.16.84 [id number] 1964 Unknown [id number] 2.16.84 [id number] 1964 Unknown [id number] 2.16.84 [id number] 1960 Self-pay 1960 Self-pay [id number] 1960 Unknown [id number] Self-pay [id number] Social History Date Type Detail Facility Assertion Gender identity finding (finding) [facility] Work Phone: Assertion Finding of sexua l orientation (finding) [facility] Work Phone: Assertion Tobacco user (finding) [facility] Work Phone: Tobacco smoking status Unknown if ever smoked [facility] Work Phone: Assertion Exposure to poll ution (event) [facility] Work Phone: Assertion [facility] Work Phone: Assertion Alcohol consumpt ion screening (procedure) [facility] Work Phone: Assertion Emotional stress (finding) [facility] Work Phone: Assertion Employment findi ng (finding) [facility] Work Phone: NEGATED: Highlighted row Assertion Current drinker of alcohol (finding) [facility] Work Phone: NEGATED: Highlighted row Assertion Finding relating to drug misuse behavior (finding) [facility] Work Phone: NEGATED: Highlighted row Assertion Exposure to pollution (event) [facility] Work Phone: NEGATED: Highlighted row Assertion Illicit drug use (finding) [facility] Work Phone: NEGATED: Highlighted row Assertion Misuse of prescription only drugs (finding) [facility] Work Phone: NEGATED: Highlighted row Assertion [facility] Work Phone: Mental Status Date Assessment Result Facility Cognitive function Cognitive fun ctioning was normal Cognitive function finding (finding) [facility] Work Phone: Clinical Note 04-28-2022 Note Date & Type Note Facility 04-28-2022 Note PROCEDURE: XR FOOT L T MIN 3 VIEWS HISTORY: Injury of right foot ; pain, bruising, swelling over dorsum of foot after dropping object on foot COMPARISON: None. FINDINGS: BONES:No fracture, acute abnormality, or significant arthropathy. SOFT TISSUES:Mild dorsal soft tissue swelling. No radiopaque foreign body. EFFUSION:None visible. OTHER: Negative. IMPRESSION: 1. No acute bone abnormality. Electronically authenticated by: JUNITO COHOA Date: 2022-04-28 12:58 [facility] Summary Purpose Family History No Family History Records Found Description Last Updated Maternal history of oncologic disorder 0 09/14/2018 Paternal history of family history of is chemic heart disease 09/14/2018 Advance Directives No Advanced Directives Records Found Includes: Current Advance Directives No Advance Directives Recorded Includes: Current Advance Directives No Advance Directives RecordedNo Advanced Directives Records Found Includes: Current Advance Directives No Advance Directives Recorded Includes: Current Advance Directives No Advance Directives Recorded Includes: Current Advance Directives No Advance Directives Recorded Includes: Current Advance Directives No Advance Directives Recorded Includes: Current Advance Directives No Advance Directives Recorded Includes: Current Advance Directives No Advance Directives Recorded Includes: Current Advance Directives No Advance Directives RecordedNo Advanced Directives Records FoundNo Advanced Directives Records FoundNo Advanced Directives Records FoundNo Advanced Directives Records Found Reason for Referral No Reason for Referral RecordedNo Reason for Referral RecordedNo Reason for Referral RecordedNo Reason for Referral RecordedNo Reason for Referral Recorded No Reason for Referral RecordedNo Reason for Referral RecordedNo Reason for Referral RecordedNo Reason for Referral Recorded Assessments Findings Encounter Date Anxiety disorder NOS Medical New Patient with Laura Whitesburg METALLOGRAPHIC TECHNICIAN 09/14/2018 Benign essential hypertension Medical Ne w Patient with Laura Whitesburg METALLOGRAPHIC TECHNICIAN 09/14/2018 Coronary artery disease Medical [place] ent with Laura Sean METALLOGRAPHIC TECHNICIAN 09/14/2018 Diabetes Risk Test Score was five score 09/14/2018 Medical New Patient with Laura Whitesburg METALLOGRAPHIC TECHNICIAN 09/14/2018 Hyperlipidemia Medical New Patient with Laura Whitesburg METALLOGRAPHIC TECHNICIAN 09/14/2018 Obesity due to excess calories Medical N ew Patient with Laura Whitesburg METALLOGRAPHIC TECHNICIAN 09/14/2018 Routine history and physical Medical New Patient with Laura Whitesburg METALLOGRAPHIC TECHNICIAN 09/14/2018 Z68.32 - Body mass index (BM I) 32.0-32.9, adult Medical New Patient with Laura Whitesburg METALLOGRAPHIC TECHNICIAN 09/14/2018 Findings Encounter Date Recurrent major depression i n full remission BH Established Patient with Princess BENSON 04/25/2019 Arthralgia of right hand Medical Establi shed Patient with Lauar Sean METALLOGRAPHIC TECHNICIAN 04/25/2019 Depression Medical Established Patient with Laura Nye METALLOGRAPHIC TECHNICIAN 04/25/2019 Fagerstrom Score was 0 Medical Establish ed Patient with Larua Nye METALLOGRAPHIC TECHNICIAN 04/25/2019 Obesity due to excess calories Medical E stablished Patient with Laura Whitesburg METALLOGRAPHIC TECHNICIAN 04/25/2019 Onychomycosis of the right 1st toenail M edical Established Patient with Laura Whitesburg METALLOGRAPHIC TECHNICIAN 04/25/2019 PHQ-9: total score was three 04/25/2019 Medical Established Patient with Laura Sean METALLOGRAPHIC TECHNICIAN 04/25/2019 Z68.31 - Body mass index (BM I) 31.0-31.9 adult Medical Established Patient with Laura Sean METALLOGRAPHIC TECHNICIAN 04/25/2019 Anxiety disorder NOS Medical New Patient with Laura Whitesburg METALLOGRAPHIC TECHNICIAN 09/14/2018 Benign essential hypertension Medical Ne w Patient with Laura Whitesburg METALLOGRAPHIC TECHNICIAN 09/14/2018 Coronary artery disease Medical [place] ent with Laura Nye METALLOGRAPHIC TECHNICIAN 09/14/2018 Diabetes Risk Test Score was five score 09/14/2018 Medical New Patient with Laura Whitesburg METALLOGRAPHIC TECHNICIAN 09/14/2018 Hyperlipidemia Medical New Patient with Laura Whitesburg METALLOGRAPHIC TECHNICIAN 09/14/2018 Obesity due to excess calories Medical N ew Patient with Laura Whitesburg METALLOGRAPHIC TECHNICIAN 09/14/2018 Routine history and physical Medical New Patient with Laura Nye METALLOGRAPHIC TECHNICIAN 09/14/2018 Z68.32 - Body mass index (BM I) 32.0-32.9, adult Medical New Patient with Laura Sean METALLOGRAPHIC TECHNICIAN 09/14/2018 Findings Encounter Date Upper respiratory infection Telemedicine with Suzi Khanna [facility] 09/24/2019 Recurrent major depression i n full remission BH Established Patient with Princess Lorri PUENTE-S 04/25/2019 Arthralgia of right hand Medical Establi shed Patient with Laura Sean METALLOGRAPHIC TECHNICIAN 04/25/2019 Depression Medical Established Patient with Laura Sean METALLOGRAPHIC TECHNICIAN 04/25/2019 Fagerstrom Score was 0 Medical Establish ed Patient with Laura Sean METALLOGRAPHIC TECHNICIAN 04/25/2019 Obesity due to excess calories Medical E stablished Patient with Laura Sean METALLOGRAPHIC TECHNICIAN 04/25/2019 Onychomycosis of the right 1st toenail M edical Established Patient with Laura Whitesburg METALLOGRAPHIC TECHNICIAN 04/25/2019 PHQ-9: total score was three 04/25/2019 Medical Established Patient with Laura Sean METALLOGRAPHIC TECHNICIAN 04/25/2019 Z68.31 - Body mass index (BM I) 31.0-31.9 adult Medical Established Patient with Laura Sean METALLOGRAPHIC TECHNICIAN 04/25/2019 Anxiety disorder NOS Medical New Patient with Laura Whitesburg METALLOGRAPHIC TECHNICIAN 09/14/2018 Benign essential hypertension Medical Ne w Patient with Laura Sean METALLOGRAPHIC TECHNICIAN 09/14/2018 Coronary artery disease Medical [place] ent with Laura Nye METALLOGRAPHIC TECHNICIAN 09/14/2018 Diabetes Risk Test Score was five score 09/14/2018 Medical New Patient with Laura Whitesburg METALLOGRAPHIC TECHNICIAN 09/14/2018 Hyperlipidemia Medical New Patient with Laura Whitesburg METALLOGRAPHIC TECHNICIAN 09/14/2018 Obesity due to excess calories Medical N ew Patient with Laura Whitesburg METALLOGRAPHIC TECHNICIAN 09/14/2018 Routine history and physical Medical New Patient with Laura Ramirez METALLOGRAPHIC TECHNICIAN 09/14/2018 Z68.32 - Body mass index (BM I) 32.0-32.9, adult Medical New Patient with Laura Ramirez METALLOGRAPHIC TECHNICIAN 09/14/2018 Findings Encounter Date Body mass index Telemedicine with An rivka Khanna [facility] 11/16/2019 Depression Telemedicine with An rivka Khanna [facility] 11/16/2019 Hypertension Telemedicine with An rivka Khanna [facility] 11/16/2019 Obesity due to excess calories Telemedic ine with Suzi Khanna [facility] 11/16/2019 Upper respiratory infection Telemedicine with Suzi Khanna [facility] 09/24/2019 Recurrent major depression i n full remission BH Established Patient with Princess BENSON 04/25/2019 Arthralgia of right hand Medical Establi shed Patient with Laura Sean METALLOGRAPHIC TECHNICIAN 04/25/2019 Depression Medical Established Patient with Laura Sean METALLOGRAPHIC TECHNICIAN 04/25/2019 Fagerstrom Score was 0 Medical Establish ed Patient with Laura Sean METALLOGRAPHIC TECHNICIAN 04/25/2019 Obesity due to excess calories Medical E stablished Patient with Laura Wh[place]burg METALLOGRAPHIC TECHNICIAN 04/25/2019 Onychomycosis of the right 1st toenail M edical Established Patient with Laura Sean METALLOGRAPHIC TECHNICIAN 04/25/2019 PHQ-9: total score was three 04/25/2019 Medical Established Patient with Laura Sean METALLOGRAPHIC TECHNICIAN 04/25/2019 Z68.31 - Body mass index (BM I) 31.0-31.9 adult Medical Established Patient with Laura Ramirez METALLOGRAPHIC TECHNICIAN 04/25/2019 Anxiety disorder NOS Medical New Patient with Laura Ramirez METALLOGRAPHIC TECHNICIAN 09/14/2018 Benign essential hypertension Medical Ne w Patient with Laura Sean METALLOGRAPHIC TECHNICIAN 09/14/2018 Coronary artery disease Medical [place] ent with Laura Ramirez METALLOGRAPHIC TECHNICIAN 09/14/2018 Diabetes Risk Test Score was five score 09/14/2018 Medical New Patient with Laura Ramirez METALLOGRAPHIC TECHNICIAN 09/14/2018 Hyperlipidemia Medical New Patient with Laura Nye METALLOGRAPHIC TECHNICIAN 09/14/2018 Obesity due to excess calories Medical N ew Patient with Laura [place] METALLOGRAPHIC TECHNICIAN 09/14/2018 Routine history and physical Medical New Patient with Laura Ramirez METALLOGRAPHIC TECHNICIAN 09/14/2018 Z68.32 - Body mass index (BM I) 32.0-32.9, adult Medical New Patient with Laura Ramirez METALLOGRAPHIC TECHNICIAN 09/14/2018 Findings Encounter Date Adjustment disorder with anxiety Tele behavioral Health with Jo Velazquez [facility] 04/30/2020 Mild recurrent major depression Teleb ehavioral Health with Jo Velazquez [facility] 04/30/2020 Body mass index Telemedicine Establi sted Patient with Thalia Block [facility] 04/30/2020 Exposure to a viral disease Telemedicine Establisted Patient with Thalia Block [facility] 04/30/2020 Obesity due to excess calories Telemedic ine Establisted Patient with Thalia Block METALLOGRAPHIC TECHNICIAN 04/30/2020 Body mass index Telemedicine with Suzi dalton [facility] 11/16/2019 Depression Telemedicine with Suzi dalton [facility] 11/16/2019 Hypertension Telemedicine with Suzi dalton [facility] 11/16/2019 Obesity due to excess calories Telemedicine with Suzi Khanna [facility] 11/16/2019 Upper respiratory infection Telemedicine with Mary Khanna [facility] 09/24/2019 Recurrent major depression i n full remission BH Established Patient with Princess PUENTE[facility] 04/25/2019 Arthralgia of right hand Medical Establi shed Patient with Laura Whitesburg METALLOGRAPHIC TECHNICIAN 04/25/2019 Depression Medical Established Patient with Laura Nye METALLOGRAPHIC TECHNICIAN 04/25/2019 Fagerstrom Score was 0 Medical Establish ed Patient with Lauramilton Ramirez METALLOGRAPHIC TECHNICIAN 04/25/2019 Obesity due to excess calories Medical E stablished Patient with Laura Whitesburg METALLOGRAPHIC TECHNICIAN 04/25/2019 Onychomycosis of the right 1 st toenail Medical Established Patient with Laura Ramirez METALLOGRAPHIC TECHNICIAN 04/25/2019 PHQ-9: total score was three 04/25/2019 Medical Established Patient with Laura Ramirez METALLOGRAPHIC TECHNICIAN 04/25/2019 Z68.31 - Body mass index (BM I) 31.0-31.9 adult Medical Established Patient with Laura Ramirez METALLOGRAPHIC TECHNICIAN 04/25/2019 Anxiety disorder NOS Medical New Patient with Laura Ramirez METALLOGRAPHIC TECHNICIAN 09/14/2018 Benign essential hypertension Medical Ne w Patient with Laura Ramirez METALLOGRAPHIC TECHNICIAN 09/14/2018 Coronary artery disease Medical [place] ent with Laura Ramirez METALLOGRAPHIC TECHNICIAN 09/14/2018 Diabetes Risk Test Score was five score 09/14/2018 Medical New Patient with Laura Ramirez METALLOGRAPHIC TECHNICIAN 09/14/2018 Hyperlipidemia Medical New Patient with Laura Ramirez METALLOGRAPHIC TECHNICIAN 09/14/2018 Obesity due to excess calories Medical N ew Patient with Laura Ramirez METALLOGRAPHIC TECHNICIAN 09/14/2018 Routine history and physical Medical New Patient with Laura Ramirez METALLOGRAPHIC TECHNICIAN 09/14/2018 Z68.32 - Body mass index (BM I) 32.0-32.9, adult Medical New Patient with Laura Ramirez METALLOGRAPHIC TECHNICIAN 09/14/2018 Findings Encounter Date Body mass index Telemedicine [place] sted Patient with Suzi Khanna METALLOGRAPHIC TECHNICIAN 06/27/2020 Hypertension Telemedicine [place]ed Patient with Suzi Khanna METALLOGRAPHIC TECHNICIAN 06/27/2020 Adjustment disorder with anxiety Tele behavioral Health with Jo Velazquez [facility] 04/30/2020 Mild recurrent major depression Teleb ehavioral Health with Jo Velazquez [facility] 04/30/2020 Body mass index Telemedicine [place]ed Patient with Thalia Umair METALLOGRAPHIC TECHNICIAN 04/30/2020 Exposure to a viral disease Telemedicine Establisted Patient with Thalia Umair METALLOGRAPHIC TECHNICIAN 04/30/2020 Obesity due to excess calories Telemedic ine Establisted Patient with Thalia Umair METALLOGRAPHIC TECHNICIAN 04/30/2020 Body mass index Telemedicine with Suzi dalton METALLOGRAPHIC TECHNICIAN 11/16/2019 Depression Telemedicine with Suzi dalton METALLOGRAPHIC TECHNICIAN 11/16/2019 Hypertension Telemedicine with Suzi Mijares e METALLOGRAPHIC TECHNICIAN 11/16/2019 Obesity due to excess calories Telemedicine with Suzi Khanna METALLOGRAPHIC TECHNICIAN 11/16/2019 Upper respiratory infection Telemedicine with Mary Khanna METALLOGRAPHIC TECHNICIAN 09/24/2019 Recurrent major depression i n full remission BH Established Patient with Princess PUENTE-S 04/25/2019 Arthralgia of right hand Medical Establi shed Patient with Laura Sean METALLOGRAPHIC TECHNICIAN 04/25/2019 Depression Medical Established Patient with Laura Nye METALLOGRAPHIC TECHNICIAN 04/25/2019 Fagerstrom Score was 0 Medical Establish ed Patient with Laura Ramirez METALLOGRAPHIC TECHNICIAN 04/25/2019 Obesity due to excess calories Medical E stablished Patient with Laura Sean METALLOGRAPHIC TECHNICIAN 04/25/2019 Onychomycosis of the right 1 st toenail Medical Established Patient with Laura Nye METALLOGRAPHIC TECHNICIAN 04/25/2019 PHQ-9: total score was three 04/25/2019 Medical Established Patient with Laura Nye METALLOGRAPHIC TECHNICIAN 04/25/2019 Z68.31 - Body mass index (BM I) 31.0-31.9 adult Medical Established Patient with Laura Nye METALLOGRAPHIC TECHNICIAN 04/25/2019 Anxiety disorder NOS Medical New Patient with Laura Nye METALLOGRAPHIC TECHNICIAN 09/14/2018 Benign essential hypertension Medical Ne w Patient with Laura Sean METALLOGRAPHIC TECHNICIAN 09/14/2018 Coronary artery disease Medical [place] ent with Laura Ramirez METALLOGRAPHIC TECHNICIAN 09/14/2018 Diabetes Risk Test Score was five score 09/14/2018 Medical New Patient with Laura Nye METALLOGRAPHIC TECHNICIAN 09/14/2018 Hyperlipidemia Medical New Patient with Laura Nye METALLOGRAPHIC TECHNICIAN 09/14/2018 Obesity due to excess calories Medical N ew Patient with Laura Sean METALLOGRAPHIC TECHNICIAN 09/14/2018 Routine history and physical Medical New Patient with Laura Ramirez METALLOGRAPHIC TECHNICIAN 09/14/2018 Z68.32 - Body mass index (BM I) 32.0-32.9, adult Medical New Patient with Laura Ramirez METALLOGRAPHIC TECHNICIAN 09/14/2018 Findings Encounter Date Mild recurrent major depress ion with anxiety BH Established Patient with Laverne Garrett [facility] 07/03/2020 Diabetes Risk Test Score was five score 07/03/2020 Medical Established Patient with Suzi Khanna METALLOGRAPHIC TECHNICIAN 07/03/2020 Hypertension Medical Established Patient with Suzi Khanna METALLOGRAPHIC TECHNICIAN 07/03/2020 Obesity due to excess calories Medical E stablished Patient with Suzi Khanna METALLOGRAPHIC TECHNICIAN 07/03/2020 Z68.36 - Body mass index [BM I] 36.0-36.9, adult Medical Established Patient with Suzi Khanna METALLOGRAPHIC TECHNICIAN 07/03/2020 Body mass index Telemedicine [place] sted Patient with Suzi Khanna METALLOGRAPHIC TECHNICIAN 06/27/2020 Hypertension Telemedicine [place]ed Patient with Suzipilo Khanna METALLOGRAPHIC TECHNICIAN 06/27/2020 Adjustment disorder with anxiety BH Tele behavioral Health with Jo HICKS 04/30/2020 Mild recurrent major depression BH Teleb ehavioral Health with Jowesley Velazquez [facility] 04/30/2020 Body mass index Telemedicine [place]ed Patient with Thalia Block METALLOGRAPHIC TECHNICIAN 04/30/2020 Exposure to a viral disease Telemedicine Establisted Patient with Thalia Umair METALLOGRAPHIC TECHNICIAN 04/30/2020 Obesity due to excess calories Telemedic ine Establisted Patient with Thalia Umair METALLOGRAPHIC TECHNICIAN 04/30/2020 Body mass index Telemedicine with Suzi Maryana e METALLOGRAPHIC TECHNICIAN 11/16/2019 Depression Telemedicine with Suzi Mijares e METALLOGRAPHIC TECHNICIAN 11/16/2019 Hypertension Telemedicine with Suzi Mijares e METALLOGRAPHIC TECHNICIAN 11/16/2019 Obesity due to excess calories Telemedicine with Suzi Jey METALLOGRAPHIC TECHNICIAN 11/16/2019 Upper respiratory infection Telemedicine with Mary Khanna METALLOGRAPHIC TECHNICIAN 09/24/2019 Recurrent major depression i n full remission BH Established Patient with Princess BENSON 04/25/2019 Arthralgia of right hand Medical Est[place]li shed Patient with Laura Wh[place] METALLOGRAPHIC TECHNICIAN 04/25/2019 Depression Medical Established Patient with Laura Sean METALLOGRAPHIC TECHNICIAN 04/25/2019 Fagerstrom Score was 0 Medical Establish ed Patient with Laura Sean METALLOGRAPHIC TECHNICIAN 04/25/2019 Obesity due to excess calories Medical E stablished Patient with Laura Wh[place] METALLOGRAPHIC TECHNICIAN 04/25/2019 Onychomycosis of the right 1 st toenail Medical Established Patient with Laura [place] METALLOGRAPHIC TECHNICIAN 04/25/2019 PHQ-9: total score was three 04/25/2019 Medical Established Patient with Laura [place] METALLOGRAPHIC TECHNICIAN 04/25/2019 Z68.31 - Body mass index (BM I) 31.0-31.9 adult Medical Established Patient with Laura Sean METALLOGRAPHIC TECHNICIAN 04/25/2019 Anxiety disorder NOS Medical New Patient with Laura [place] METALLOGRAPHIC TECHNICIAN 09/14/2018 Benign essential hypertension Medical Ne w Patient with Laura Wh[place] METALLOGRAPHIC TECHNICIAN 09/14/2018 Coronary artery disease Medical [place] ent with Laura Sean METALLOGRAPHIC TECHNICIAN 09/14/2018 Diabetes Risk Test Score was five score 09/14/2018 Medical New Patient with Laura [place] METALLOGRAPHIC TECHNICIAN 09/14/2018 Hyperlipidemia Medical New Patient with Laura Sean METALLOGRAPHIC TECHNICIAN 09/14/2018 Obesity due to excess calories Medical N ew Patient with Laura Sean METALLOGRAPHIC TECHNICIAN 09/14/2018 Routine history and physical Medical New Patient with Laura Ramirez METALLOGRAPHIC TECHNICIAN 09/14/2018 Z68.32 - Body mass index (BM I) 32.0-32.9, adult Medical New Patient with Laura Ramirez METALLOGRAPHIC TECHNICIAN 09/14/2018 Findings Encounter Date Recurrent major depression i n full remission BH Established Patient with Princess PUENTE-S 04/25/2019 Depression Medical Established Patient with Laura Ramirez CNP 04/25/2019 Fagerstrom Score was 0 Medical Establish ed Patient with Laura Ramirez METALLOGRAPHIC TECHNICIAN 04/25/2019 Obesity due to excess calories Medical E stablished Patient with Laura Sean METALLOGRAPHIC TECHNICIAN 04/25/2019 PHQ-9: total score was three 04/25/2019 Medical Established Patient with Laura Ramirez METALLOGRAPHIC TECHNICIAN 04/25/2019 Z68.31 - Body mass index (BM I) 31.0-31.9 adult Medical Established Patient with Laura Ramirez CNP 04/25/2019 Anxiety disorder NOS Medical New Patient with Laura Sean METALLOGRAPHIC TECHNICIAN 09/14/2018 Benign essential hypertension Medical Ne w Patient with Laura Sean METALLOGRAPHIC TECHNICIAN 09/14/2018 Coronary artery disease Medical [place] ent with Laura Nye METALLOGRAPHIC TECHNICIAN 09/14/2018 Diabetes Risk Test Score was five score 09/14/2018 Medical New Patient with Laura Sean METALLOGRAPHIC TECHNICIAN 09/14/2018 Hyperlipidemia Medical New Patient with Laura Ramirez METALLOGRAPHIC TECHNICIAN 09/14/2018 Obesity due to excess calories Medical N ew Patient with Laura Ramirez METALLOGRAPHIC TECHNICIAN 09/14/2018 Routine history and physical Medical New Patient with Laura Ramirez METALLOGRAPHIC TECHNICIAN 09/14/2018 Z68.32 - Body mass index (BM I) 32.0-32.9, adult Medical New Patient with Laura Sean METALLOGRAPHIC TECHNICIAN 09/14/2018 Instructions Instructions not supported for this document type No Instructions Recorded Instructions not supported for this document type No Instructions Recorded Instructions not supported for this document type No Instructions Recorded Instructions not supported for this document type No Instructions Recorded Instructions not supported for this document type No Instructions Recorded Instructions not supported for this document type No Instructions Recorded Instructions not supported for this document type No Instructions Recorded Instructions not supported for this document type No Instructions Recorded Instructions not supported for this document type No Instructions Recorded History of Present Illness History of Present Illness not supported for this document type No History of Present Illness Recorded History of Present Illness not supported for this document type No History of Present Illness Recorded History of Present Illness not supported for this document type No History of Present Illness Recorded History of Present Illness not supported for this document type No History of Present Illness Recorded History of Present Illness not supported for this document type No History of Present Illness Recorded History of Present Illness not supported for this document type No History of Present Illness Recorded History of Present Illness not supported for this document type No History of Present Illness Recorded History of Present Illness not supported for this document type No History of Present Illness Recorded History of Present Illness not supported for this document type No History of Present Illness Recorded Review of System Review of Systems not supported for this document type No Review of Systems Recorded Review of Systems not supported for this document type No Review of Systems Recorded Review of Systems not supported for this document type No Review of Systems Recorded Review of Systems not supported for this document type No Review of Systems Recorded Review of Systems not supported for this document type No Review of Systems Recorded Review of Systems not supported for this document type No Review of Systems Recorded Review of Systems not supported for this document type No Review of Systems Recorded Review of Systems not supported for this document type No Review of Systems Recorded Review of Systems not supported for this document type No Review of Systems Recorded Physical Exam Physical Exam not supported for this document type No Physical Exam Recorded Physical Exam not supported for this document type No Physical Exam Recorded Physical Exam not supported for this document type No Physical Exam Recorded Physical Exam not supported for this document type No Physical Exam Recorded Physical Exam not supported for this document type No Physical Exam Recorded Physical Exam not supported for this document type No Physical Exam Recorded Physical Exam not supported for this document type No Physical Exam Recorded Physical Exam not supported for this document type No Physical Exam Recorded Physical Exam not supported for this document type No Physical Exam Recorded Additional Source Comments INFORMATION SOURCE (unrecogn ized section and content) DATE CREATED AUTHOR 12/20/2018 [facility] DATE CREATED AUTHOR AUTHOR'S ORGANIZ ATION 04/28/2019 [facility] DATE CREATED AUTHOR AUTHOR'S ORGANIZ ATION 01/20/2022 [facility] DATE CREATED AUTHOR AUTHOR'S ORGANIZ ATION 05/01/2022 [facility] DATE CREATED AUTHOR AUTHOR'S ORGANIZ ATION [facility] CREATED AUTHOR AUTHOR'S DAVONTE ATCRIS 05/21/2023 [facility] EPIC Evaluations & Outcomes (unre cognized section and content) Includes: Evaluations & Outcomes for active GoalsNo Outcomes Recorded Includes: Evaluations & Outcomes for active GoalsNo Outcomes Recorded Includes: Evaluations & Outcomes for active GoalsNo Outcomes Recorded Includes: Evaluations & Outcomes for active GoalsNo Outcomes Recorded Includes: Evaluations & Outcomes for active GoalsNo Outcomes Recorded Includes: Evaluations & Outcomes for active GoalsNo Outcomes Recorded Includes: Evaluations & Outcomes for active GoalsNo Outcomes Recorded Includes: Evaluations & Outcomes for active GoalsNo Outcomes Recorded Includes: Evaluations & Outcomes for active GoalsNo Outcomes Recorded Medical History (unrecognize d section and content) Description Fibromyalgia 09/14/2018 History of anxiety disorder NOS 09/15/19 19 History of depression 09/14/2018 History of hypertension 09/14/2018 Description Last Updated No previous hospitalizations 06/27/2020 Fibromyalgia 09/14/2018 History of anxiety disorder NOS 09/15/19 19 History of depression 09/14/2018 History of hypertension 09/14/2018 Description Last Updated History of hypertension 07/22/2020 No previous hospitalizations 06/27/2020 Fibromyalgia 09/14/2018 History of anxiety disorder NOS 09/15/19 19 History of depression 09/14/2018 FOR RECORDS PERTAINING TO PATIENTS WHO ARE OR HAVE BEEN ENROLLED IN A CHEMICAL DEPENDENCY/SUBSTANCEABUSE PROGRAM, SOME INFORMATION MAY BE OMITTED. This clinical summary was aggregated from multiple sources. Caution should be exercised in using it in the provision of clinical care. This summary normalizes information from multiple sources, and as a consequence, information in this document may materially change the coding, format and clinical context of patient data. In addition, data may be omitted in some cases. CLINICAL DECISIONS SHOULD BE BASED ON THE PRIMARY CLINICAL RECORDS. [employer] [facility]. provides no warranty or guarantee of the accuracy or completeness of information in this document.
--- NOTE | 2023-06-24 07:57 | CT_ITS ---
The [address] [address] Patient Name: FABRIZIO ECKERT MRN: [id number] date: 1965 Sex: F Assigned Patient Location: CT Current Patient Location: CT Accession/Order Number: [id number] Exam Date: 06/24/2023 08:05 Report Date: 06/24/2023 08:26 At the request of: SHAIKH JONO Procedure: CT chest wo con EXAMINATION: CT chest wo con HISTORY: Abnormal Chest Xray With Multiple Nodules R91.8 , lung nodule, cough, shortness of breath COMPARISON: No relevant comparison available. TECHNIQUE: Multi-planar CT images were obtained without and/or with IV contrast as indicated by examination type. Axial, Coronal, and Sagittal images. Dose reduction techniques were achieved by using automated exposure control and/or adjustment of mA and/or kV according to patient size and/or use of iterative reconstruction technique. FINDINGS: LUNGS: Multiple granulomas scattered bilaterally. No suspicious nodules or acute infiltrates. No significant chronic interstitial changes. PLEURA: No mass, effusion, or pneumothorax. VASCULATURE: No abnormality. JED: No mass or adenopathy. MEDIASTINUM: No mass or adenopathy. CARDIAC: No enlargement, pericardial thickening, or significant calcification. AORTA: No aneurysm or dissection. CHEST WALL: No mass or axillary adenopathy. BONES: No bone lesion or fracture. LIMITED ABDOMEN: No suspicious findings Limited images of the upper abdomen. OTHER: Negative. CT/CT chest wo con IMPRESSION: 1. Multiple benign-appearing granulomas scattered within the lungs. No suspicious nodules or infiltrates. Electronically authenticated by: JUNITO OCHOA Date: 06/24/2023 08:26
== END 2023-06-24 07:54 | disposition home or self-care (01) ==
LOC: CT 07:54
PROVIDERS: PCP Internal Medicine; Visit Provider Internal Medicine
DX: R91.8 Other nonspecific abnormal finding of lung field (principal)
CPT/HCPCS: 71250

== ENCOUNTER 2023-06-29 08:49 | Outpatient (OUT) | payer OTHER, SELFPAY ==
--- NOTE | 2023-06-29 08:51 | MM_ITS ---
Patient Name: FABRIZIO ECKERT MR#: [id number] : 1965 Exam Date: 06/29/2023 Ordering Doctor: Shaikh Ellen Arshad . RADIOLOGY REPORT PROCEDURE: MM TOMOSYNTHESIS SCREENING BI COMPARISON: None. INDICATIONS: Screening Calculator Name NCI Breast Cancer Risk Assessment Tool 5 Year Breast Cancer Risk 1.30% Lifetime Breast Cancer Risk 7.60% Personal Breast Cancer No Personal Ovarian Cancer No Treatments None Family Cancers None LOCATION: [facility] BREAST COMPOSITION: Scattered areas fibroglandular density. FINDINGS: DIAGNOSTIC CATEGORY 2--BENIGN FINDING: RIGHT BREAST: No significant suspicious finding. Scattered benign-appearing calcifications are present. Scattered benign-appearing lymph nodes are present. LEFT BREAST: No significant suspicious finding. Scattered benign-appearing calcifications are present. Scattered benign-appearing lymph nodes are present. RECOMMENDATIONS: ROUTINE MAMMOGRAM AND CLINICAL EVALUATION IN 12 MONTHS. PLEASE NOTE: A NORMAL MAMMOGRAM DOES NOT EXCLUDE THE POSSIBILITY OF BREAST CANCER. A CLINICALLY SUSPICIOUS PALPABLE LUMP SHOULD BE BIOPSIED. Dictated by: Robi Rodriguez M.D. on 06/30/2023 at 07:42 Approved by: Robi Rodriguez M.D. on 06/30/2023 at 07:45
--- OUTSIDE RECORDS SUMMARY | 2023-06-29 09:03 | XMS_ITS | CCD ---
Author Name Unknown Address [address] [place] [address] Organization [facility] Care Team Providers Care [employer] Police Officer Name Role Phone PETE, AMGEOFFR Referring Unavailable SEAN, LAURA A Primary Care Unavailable PETE, KAYLA Admitting Unavailable KAYLA FREEMAN Attending Unavailable Paradis, Laura Primary Care Provider [phone] RHETT NAQVI Referring Unavailable SEAN, LAURA A Primary Care Unavailable AHMADRHETT Referring Unavailable SEAN, LAURA A Primary Care Unavailable RHETT GREGORY Referring Unavailable SEAN, LAURA A Primary Care Unavailable SEAN, LAURA A Primary Care Unavailable DEYANIRA REID Attending Unavailab le SAEN, LAURA A Referring Unavailable SEAN, LAURA A Primary Care Unavailable SEAN, LAURA A Referring Unavailable SEAN, LAURA A Primary Care Unavailable SEAN, LAURA A Referring Unavailable SEAN, LAURA A Primary Care Unavailable Szui Khanna Primary Care Provider Suzi Khanna Primary Care Provider [phone] Provider, None Primary Care Unavailable Len Garcia Attending Unavailable Len Garcia Admitting Unavailable PAL ANDERSON Admitting Unavailable GABRIELA, DR JUNITO Pisano Consulting Unavailable JONO, MCCAULEY H Primary Care Unavailable PAL ANDERSON Attending Unavailable PAL ANDERSON Consulting Unavailable MARKER, DR JUNG Attending Unavailable MARKER, DR JUNG Admitting Unavailable RAFAT MCMANUS Consulting Unavailable FAWRADHA, MCCAULEY H Primary Care Unavailable MARKER, DR JUNG Consulting Unavailable LEN DONATO Consulting Unavailable PAL ANDERSON Attending Unavailable PAL ANDERSON Admitting Unavailable MYRA, DR CEASAR Pichardo Consulting Unavailable FAWWAD, MCCAULEY H Primary Care Unavailable PAL ANDERSON Consulting Unavailable FAWWAD, MCCAULEY H Attending Unavailable FAWWAD, MCCAULEY H Admitting Unavailable FAWWAD, MCCAULEY H Primary Care Unavailable FAWWAD, MCCAULEY H Consulting Unavailable FAWWAD, MCCAULEY H Consulting Unavailable FAWWAD, MCCAULEY H Attending Unavailable FAWWAD, MCCAULEY H Admitting Unavailable FAWWAD, MCCAULEY H Primary Care Unavailable Calin ESTEVEZ Attending Unavailable SHAIKH DE LA CRUZ Attending Unavailable Allergies Allergy Classification Reported Allergen(s) Allergy Type Date of Onset Reaction(s) Facility (4 sources) Seasonal allergy Allergy to substance 04-30-2020 [facility] [place] [facility] Work Phone: Medications Current Medications Medication [...] Coronary arteriosclerosis; 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: [Atherosclerotic heart disease of [place] coronary artery without angina pectoris] Onset: 09-14-2018 [...] 04-25-2019 Chronic Other aftercare (1 source) Other long term acute care registered nurse (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 therapy; 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: [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] Onset: 04-30-2022 Episodic Other aftercare (1 source) [facility] (current) use of aspirin; 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: [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] Onset: 04-30-2022 Episodic [...] Interpretation Reference Range Facility Registrationon 02-02-2023 Registration [id number]:1 27 [facility] [place] 01-31-2023 Consent [id number]:127 Normal [facility] CT ABD/PELVIS WO CONon 02-18 CT [...] LEN DONATO Date: 2022-02-17 23:02 Normal [facility] CBC AUTO DIFFon 02-17-2022 BASO # 0.1 103/ul Normal 0[facility]0-0.1 [facility] Comment on above: Performed By: #### C BC #### [facility] [address] [address] [address] Abby Sanchez Basophils/100 WBC (Bld) 0.7 % Normal 0.2-2.0 [facility] Comment on above: Performed By: #### C BC #### [facility] [address] [place] [address] Dr. Abby Sanchez EO # 0.1 103/ul Normal 0.0-0.7 [facility] Comment on above: Performed By: #### C BC #### [facility] [address] [place] [address] Dr. Abby Sanchez Eosinophils/100 WBC (Bld) 1.0 % Normal 0.9-7.0 [facility] Comment on above: Performed By: #### C BC #### [facility] [address] [place] [address] Dr. Abby Sanchez Erythrocyte distribution width (RBC) [Ratio] 13.7 % Normal 11.0-15.0 [facility] Comment on above: Performed By: #### C BC #### [facility] [address] [place] [address] Dr. Abby Sanchez Hematocrit (Bld) [Volume fraction] 44.5 % Normal 36.0-48.0 [facility] Comment on above: Performed By: #### C BC #### [facility] [address] [place] [address] Dr. Abby Sanchez Hemoglobin (Bld) [Mass/Vol] 14.5 g/dL Normal 12.0-16.0 [facility] Comment on above: Performed By: #### C BC #### [facility] [address] [place] [address] Dr. Abby Sanchez IG # 0.03 10e3/ul Normal 0.00-0.03 [facility] Comment on above: Performed By: #### C BC #### [facility] [address] [place] [address] Dr. Abby Sanchez IG % 0.2 % Normal 0.0-0.5 [facility] Comment on above: Performed By: #### C BC #### [facility] [address] [place] [address] Dr. Abby Sanchez LYMPH # 2.1 103/ul Normal 1.2-3.8 [facility] Comment on above: Performed By: #### C BC #### [facility] [address] [place] [address] Dr. Abby Sanchez Lymphocytes/100 WBC (Bld) 16.2 % Critically low 20.5-60.0 [facility] Comment on above: Performed By: #### C BC #### [facility] [address] [place] [address] Dr. Abby Sanchez MANUAL DIFF REQ NO Normal [facility] Comment on above: Performed By: #### C BC #### [facility] [address] [place] [address] Dr. Abby Sanchez MCH (RBC) [Entitic mass] 30.6 pg Normal 26.7-34.0 [facility] Comment on above: Performed By: #### C BC #### [facility] [address] [place] [address] Dr. Abby Sanchez MCHC (RBC) [Mass/Vol] 32.6 g/dL Normal 29.9-35.2 [facility] Comment on above: Performed By: #### C BC #### [facility] [address] [place] [address] Dr. Abby Sanchez MCV (RBC) [Entitic vol] 93.9 fL Normal 81.0-99.0 [facility] Comment on above: Performed By: #### C BC #### [facility] [address] [place] [address] Dr. Abby Sanchez MONO # 0.6 103/ul Normal 0.3-0.8 [facility] Comment on above: Performed By: #### C BC #### [facility] [address] [place] [address] Dr. Abby Sanchez Monocytes/100 WBC (Bld) 5.1 % Normal 1.7-12.0 [facility] Comment on above: Performed By: #### C BC #### [facility] [address] [place] [address] Dr. Abby Sanchez NEUT # 9.7 103/ul Critically high 1.4-6.5 [facility] Comment on above: Performed By: #### C BC #### [facility] [address] [address] [address] Abby Sanchez Neutrophils/100 WBC (Bld) 76.8 % Critically high 43.0-75.0 [facility] Comment on above: Performed By: #### C BC #### [facility] [address] [place] [address] Dr. Abby Sanchez Platelet mean volume (Bld) [Entitic vol] 9.6 fL Normal 9.5-13.5 [facility] Comment on above: Performed By: #### C BC #### [facility] [address] [place] [address] Dr. Abby Sanchez PLT 324 103/ul Normal 150-450 [facility] Comment on above: Performed By: #### C BC #### [facility] [address] [place] [address] Dr. Abby Sanchez RBC 4.74 106/ul Normal 4.20-5.40 [facility] Comment on above: Performed By: #### C BC #### [facility] [address] [place] [address] Dr. Abby Sanchez WBC 12.7 103/ul Critically high 4.0-11.0 [facility] Comment on above: Performed By: #### C BC #### [facility] [address] [place] [address] Dr. Abby Sanchez CULTURE URINEon 02-17-2022 CULTURE URINE Culture Observations : NO GROWTH. Normal [facility] Comment on above: Performed By: #### U RCX #### [facility] [address] [place] [address] Dr. Abby Sanchez ER URINE PROFILEon 2 Bilirubin Ql (U) Negative Normal NEGATIVE [facility] Comment on above: Performed By: #### BARRINGTON MOERO ####[facility] [address] [address]Dr. Abby Sanchez Clarity (U) SL CLOUDY Abnormal CLEAR [facility] Comment on above: Performed By: #### BEAR MOEICRO ####[facility] [address] [id number]. Abby Sanchez Color (U) LT. YELLOW Normal YELLOW [facility] Comment on above: Performed By: #### Mani SNOW UMICRO ####[facility] [address] [address]Dr. Abby Sanchez ERUAHD A micrscopic examina tion will be performed if indicated. Normal [facility] Comment on above: Performed By: #### Mani SNOW UMICRO ####[facility] [address] [place], [place] [address]Dr. Abby Sanchez Glucose Ql (U) Negative Normal NEGATIVE [facility] Comment on above: Performed By: #### Mani SNOW UMICRO ####[facility] [address] [place], [place] [address]Dr. Abby Sanchez Hemoglobin Ql (U) LARGE Abnormal NEGATIVE [facility] Comment on above: Performed By: #### Mani SNOW UMICRO ####[facility] [address] [place], [place] [address]Dr. Abby Sanchez Ketones Ql (U) Negative Normal NEGATIVE [facility] Comment on above: Performed By: #### Mani SNOW UMICRO ####[facility] [address]wncipp[address] [place], [place] [address]Dr. Abby Sanchez LEUKOCYTES TRACE Abnormal NEGATIVE [facility] Comment on above: Performed By: #### Mani SNOW UMICRO ####[facility] Z[address]lccl[address] [place], [place] [address]Dr. Abby Sanchez Nitrite Ql (U) Negative Normal NEGATIVE [facility] Comment on above: Performed By: #### Mani SNOW UMICRO ####[facility] L[address]fw[address] [place], [place] [address]Dr. Abby Sanchez pH (U) 7.0 [pH] Normal 5-9 [facility] Comment on above: Performed By: #### Mani SNOW UMICRO ####[facility] [address] [place], [place] [address]Dr. Abby Sanchez Protein (U) [Mass/Vol] 100 mg/dL Abnormal NEGATIVE/ TRACE [facility] Comment on above: Performed By: #### CATHY MOE ####[facility] [address] [address]Dr. Abby Sanchez SPEC GRAVITY 1.025 Normal 1.005-<=1.02 5 [facility] Comment on above: Performed By: #### CATHY MOE ####[facility] [address] [address]Dr. Abby Sanchez UR MICRO IND INDICATED Normal [facility] Comment on above: Performed By: #### CATHY MOE ####[facility] [address] [address]Dr. Abby Sanchez Urobilinogen Qn (U) 0.2 {Carolina'U}/dL Normal 0.2 - 1. 0 [facility] Comment on above: Performed By: #### CATHY MOE ####[facility] Ms[address]cpx[address]jp[address] [place], [place] [address]Dr. Abby Sanchez PROF CHEM 8 (BAS METB)on Anion gap [Moles/Vol] 11.5 mmol/L Normal [facility] Comment on above: Performed By: #### B MP ####[facility] [address] [place], [place] [address]Dr. Abby Sanchez Calcium [Mass/Vol] 8.9 mg/dL Normal 8.5-10.1 [facility] Comment on above: Performed By: #### B MP ####[facility] Uqbce[address]piut[address] [place], [place] [address]Dr. Abyb Sanchez Chloride [Moles/Vol] 103 mmol/L Normal 98-107 [facility] Comment on above: Performed By: #### B MP ####[facility] [address]hzl[address] [place], [place] [address]Dr. Abby Sanchez CO2 [Moles/Vol] 29.1 mmol/L Normal 21.0-32.0 [facility] Comment on above: Performed By: #### B MP ####[facility] [address] [place], [place] [address]Dr. Abby Sanchez Creatinine [Mass/Vol] 0.79 mg/dL Normal 0.55-1.02 [facility] Comment on above: Performed By: #### B MP ####[facility] [address] [address]Dr. Kirabrittney Daniel EGFR-AF GAMBIAN >60 Normal >=60 [facility] Comment on above: Performed By: #### B MP ####[facility] [address] [address]Dr. Kirabrittney Daniel EGFR-NON AF GAMBIAN >60 Normal >=60 [facility] Comment on above: Performed By: #### B MP ####[facility] [address] [address]Dr. Abby Sanchez Glucose [Mass/Vol] 112 mg/dL Critically high 74-106 [facility] Comment on above: Performed By: #### B MP ####[facility] [address] [address]Dr. Abby Sanchez Potassium [Moles/Vol] 4.6 mmol/L Normal 3.5-5.1 [facility] Comment on above: Performed By: #### B MP ####[facility] [address] [address]Dr. Abby Sanchez Sodium [Moles/Vol] 139 mmol/L Normal 136-145 [facility] Comment on above: Performed By: #### B MP ####[facility] [address] [address]Dr. Abby Sanchez Urea nitrogen [Mass/Vol] 12.0 mg/dL Normal 7.0-18.0 [facility] Comment on above: Performed By: #### B MP ####[facility] [address] [address]Dr. Abby Sanchez Urea nitrogen/Creatinine [Mass ratio] 15.2 mg/mg Normal [facility] Comment on above: Performed By: #### B MP ####[facility] [address] [address]Dr. Abby Sanchez PROTIMEon 02-17-2022 INR Coag (PPP) [Relative time] {INR} Normal [facility] Comment on above: Performed By: #### P T, PTT #### [facility] [address] [address] [address] Abby Sanchez INR GUIDELINES SEE BELOW Normal [facility] Comment on above: Result Comment: PINEDA RED INR: 2.0 - 3.0 CONDITIONS NOT LISTED BELOW 2.5 - 3.5 FOR PROSTHETIC HEART VALVE REPLACEMENT 2.5 - 3.5 RECURRENT THROMBOSIS Performed By: #### P T, PTT #### [facility] [address] [address] [address] Abby Sanchez PT Coag (PPP) [Time] 10.0 s Normal 9.0-11.6 [facility] Comment on above: Performed By: #### P T, PTT #### [facility] [address] [place] [address] Dr. Abby Sanchez PTTon 02-17-2022 aPTT Coag (Bld) [Time] 27.9 s Normal 22.3-36.2 [facility] Comment on above: Performed By: #### P T, PTT #### [facility] [address] [place] [address] Dr. Abby Sanchez URINE MICROSCOPIC ONLYon BACTERIA TRACE Abnormal NONE SEEN [facility] Comment on above: Performed By: #### BARRINGTON MOERO ####[facility] [address] [address]Dr. Abby Sanchez Bacteria identified Cx Nom (U) INDICATED Normal [facility] Comment on above: Performed By: #### BARRINGTON MOERO ####[facility] [address] [address]DrChandrakant Sanchez CAST NONE SEEN Normal NONE SEEN [facility] Comment on above: Performed By: #### BARRINGTON MOERO ####[facility] [address] [address]DrChandrakant Sanchez Crystals LM Nom (Urine sed) NONE SEEN Normal NONE SEEN [facility] Comment on above: Performed By: #### BARRINGTON MOERO ####[facility] R[address] [place], [place] [address]Dr. Abby Sanchez Epithelial cells LM Ql (Urine sed) FEW Abnormal NONE SEEN /RARE [facility] Comment on above: Performed By: #### CATHY MOE ####[facility] [address]gt[address] [place], [place] [address]Dr. Kirabrittney Daniel MUCOUS NONE SEEN Normal NONE SEEN [facility] Comment on above: Performed By: #### CATHY MOE ####[facility] By[address]qpok[address] [place], [place] [address]Dr. Abby Sanchez RBC (U) [#/Vol] /uL Abnormal 0-2 [facility] Comment on above: Performed By: #### CATHY MOE ####[facility] [address] [place], [place] [address]Dr. Abby Sanchez WBC 5-10 Abnormal NONE SEEN [facility] Comment on above: Performed By: #### CATHY MOE ####[facility] [address]pcn[address] [place], [place] [address]Dr. Abby Daniel CBC AUTO DIFFon 11-17-2021 BASO # 0.1 103/ul Normal 0.0-0.1 [facility] Comment on above: Performed By: #### C BC ####[facility] [address]fcch[address] [place], [place] [address]Dr. Abby Sanchez Basophils/100 WBC (Bld) 0.9 % Normal 0.2-2.0 [facility] Comment on above: Performed By: #### C BC ####[facility] [address]ftr[address] [place], [place] [address]Dr. Abby Sanchez EO # 0.1 103/ul Normal 0.0-0.7 [facility] Comment on above: Performed By: #### C BC ####[facility] [address] [place], [place] [address]Dr. Abby Sanchez Eosinophils/100 WBC (Bld) 1.9 % Normal 0.9-7.0 [facility] Comment on above: Performed By: #### C BC ####[facility] [address] [place], [place] [address]Dr. Abby Sanchez Erythrocyte distribution width (RBC) [Ratio] 13.8 % Normal 11.0-15.0 [facility] Comment on above: Performed By: #### C BC ####[facility] [address] [address]Dr. Abby Sanchez Hematocrit (Bld) [Volume fraction] 44.4 % Normal 36.0-48.0 [facility] Comment on above: Performed By: #### C BC ####[facility] [address] [address]Dr. Abby Sanchez Hemoglobin (Bld) [Mass/Vol] 14.5 g/dL Normal 12.0-16.0 [facility] Comment on above: Performed By: #### C BC ####[facility] [address] [address]Dr. Abby Sanchez IG # 0.02 10e3/ul Normal 0.00-0.03 [facility] Comment on above: Performed By: #### C BC ####[facility] [address] [address]Dr. Abby Sanchez IG % 0.4 % Normal 0.0-0.5 [facility] Comment on above: Performed By: #### C BC ####[facility] [address] [address]Dr. Abby Sanchez LYMPH # 1.8 103/ul Normal 1.2-3.8 [facility] Comment on above: Performed By: #### C BC ####[facility] [address] [address]Dr. Abby Daniel Lymphocytes/100 WBC (Bld) 30.9 % Normal 20.5-60.0 [facility] Comment on above: Performed By: #### C BC ####[facility] [address] [address]Dr. Kirabrittney Sanchez MANUAL DIFF REQ NO Normal [facility] Comment on above: Performed By: #### C BC ####[facility] [address]lsr[address] [address]Dr. Abby Sanchez MCH (RBC) [Entitic mass] 31.2 pg Normal 26.7-34.0 [facility] Comment on above: Performed By: #### C BC ####[facility] [address] [address]Dr. Abby Sanchez MCHC (RBC) [Mass/Vol] 32.7 g/dL Normal 29.9-35.2 [facility] Comment on above: Performed By: #### C BC ####[facility] [address] [address]Dr. Abby Sanchez MCV (RBC) [Entitic vol] 95.5 fL Normal 81.0-99.0 [facility] Comment on above: Performed By: #### C BC ####[facility] [address] [place], [place] [address]Dr. Abby Sanchez MONO # 0.3 103/ul Normal 0.3-0.8 [facility] Comment on above: Performed By: #### C BC ####[facility] [address]fanxpwv[address] [place], [place] [address]Dr. Abby Sanchez Monocytes/100 WBC (Bld) 5.3 % Normal 1.7-12.0 [facility] Comment on above: Performed By: #### C BC ####[facility] [address]fgl[address] [place], [place] [address]Dr. Abby Sanchez NEUT # 3.5 103/ul Normal 1.4-6.5 [facility] Comment on above: Performed By: #### C BC ####[facility] [address]wer[address] [place], [place] [address]Dr. Abby Daniel Neutrophils/100 WBC (Bld) 60.6 % Normal 43.0-75.0 [facility] Comment on above: Performed By: #### C BC ####[facility] [address]emts[address] [place], [place] [address]Dr. Abby Sanchez Platelet mean volume (Bld) [Entitic vol] 9.6 fL Normal 9.5-13.5 [facility] Comment on above: Performed By: #### C BC ####[facility] [address] [place], [place] [address]Uh. Abby Sanchez PLT 308 103/ul Normal 150-450 [facility] Comment on above: Performed By: #### C BC ####[facility] [address] [id number] Malonebrittney Sanchez RBC 4.65 106/ul Normal 4.20-5.40 [facility] Comment on above: Performed By: #### C BC ####[facility] [address] [id number]. Kirabrittney Daniel WBC 5.7 103/ul Normal 4.0-11.0 [facility] Comment on above: Performed By: #### C BC ####[facility] [address] [id number]. Abby Sanchez GLYCOHEMOGLOBIN A1Con 2021 ADA RECOMMENDATION SEE BELOW [facility] Comment on above: Result Comment: ADA RECOMMENDED LIMIT 4.0 - 6.0 ADA THERAPEUTIC TARGET < 7.0 ACTION SUGGESTED > 7.0 Performed By: #### A 1C #### [facility] [address] [address] [address] Abby Sanchez Glucose [Mass/Vol] 131 mg/dL [facility] Comment on above: Performed By: #### A 1C #### [facility] [address] [place] [address] Dr. Abby Sanchez HbA1c (Bld) [Mass fraction] 6.2 % Normal 4.5-6.2 [facility] Comment on above: Performed By: #### A 1C #### [facility] [address] [address] [address] Abby Sanchez LIPASEon 11-17-2021 Lipase [Catalytic activity/Vol] 117.0 U/L Normal 73.0-393.0 [facility] Comment on above: Performed By: #### C MP, LIPA, LIPID #### [facility] [address] [address] [address] Abby Sanchez LIPID PROFILEon 11-17-2021 CHOL-HDL RATIO NORM SEE BELOW Normal [facility] Comment on above: Result Comment: 3.3 - 4.4 LOW RISK 4.4 - 7.1 AVERAGE RISK 7.1 - 11.0 MODERATE RISK >11.0 HIGH RISK Performed By: #### C MP, LIPA, LIPID #### [facility] [address] [place] [address] Dr. Abby Sanchez Cholesterol [Mass/Vol] 220 mg/dL Critically high <=200 [facility] Comment on above: Performed By: #### C MP, LIPA, LIPID #### [facility] [address] [address] [address] Abby Sanchez Cholesterol in HDL [Mass/Vol] 52 mg/dL Normal 40-60 [facility] Comment on above: Performed By: #### C MP, LIPA, LIPID #### [facility] [address] [place] [address] Dr. Abby Sanchez Cholesterol in LDL [Mass/Vol] 142.8 mg/dL Normal [facility] Comment on above: Performed By: #### C MP, LIPA, LIPID #### [facility] [address] [place] [address] Dr. Abby Sanchez Cholesterol.total/C holesterol in HDL [Mass ratio] 4.2 {ratio} [facility] Comment on above: Performed By: #### C MP, LIPA, LIPID #### [facility] [address] [place] [address] Dr. Abby Sanchez HDL NORMAL > or = 60 mg/dl - LO W CARDIOVASCULAR RISK <40 mg/dl - HIGH CARDIOVASCULAR RISK Normal [facility] Comment on above: Performed By: #### C MP, LIPA, LIPID #### [facility] [address] [place] [address] Dr. Abby Sanchez LDL CALC NORMAL SEE BELOW Normal [facility] Comment on above: Result Comment: <100 mg/dl OPTIMAL 100 - 129 mg/dl NEAR OR ABOVE OPTIMAL 130 - 159 mg/dl BORDERLINE HIGH 160 - 189 mg/dl HIGH >190 mg/dl VERY HIGH Performed By: #### C MP, LIPA, LIPID #### [facility] [facility] [address] [place] [address] Dr. Abby Sanchez Triglyceride [Mass/Vol] 126 mg/dL Normal <=150 [facility] Comment on above: Performed By: #### C MP, LIPA, LIPID #### [facility] [address] [address] [address] Abby Sanchez VLDL CALC 25.2 mg/dL [facility] Comment on above: Performed By: #### C MP, LIPA, LIPID #### [facility] [address] [address] [address] Abby Sanchez PROF 14(COMP METB)on 022 Albumin [Mass/Vol] 3.3 g/dL Critically low 3.4-5.0 Th e [facility] Comment on above: Performed By: #### C MP, LIPA, LIPID ####[facility] [address] [address]Dr. Abby Sanchez Albumin/Globulin [Mass ratio] 0.8 {ratio} [facility] Comment on above: Performed By: #### C MP, LIPA, LIPID ####[facility] [address] [address]Dr. Abby Sanchez ALP [Catalytic activity/Vol] 111 U/L Normal 46-116 [facility] Comment on above: Performed By: #### C MP, LIPA, LIPID ####[facility] [address] [address]Dr. Abby Sanchez ALT [Catalytic activity/Vol] 25 U/L Normal 14-59 [facility] Comment on above: Performed By: #### C MP, LIPA, LIPID ####[facility] [address] [address]Dr. Abby Sanchez Anion gap [Moles/Vol] 11.8 mmol/L [facility] Comment on above: Performed By: #### C MP, LIPA, LIPID ####[facility] [address] [address]Dr. Abby Sanchez AST [Catalytic activity/Vol] 19 U/L Normal 15-37 [facility] Comment on above: Performed By: #### C MP, LIPA, LIPID ####[facility] [address] [address]Dr. Abby Sanchez Bilirubin [Mass/Vol] 0.4 mg/dL Normal 0.2-1.0 The [facility] Comment on above: Performed By: #### C MP, LIPA, LIPID ####[facility] [address] [address]Dr. Abby aSnchez Calcium [Mass/Vol] 9.1 mg/dL Normal 8.5-10.1 The [facility] Comment on above: Performed By: #### C MP, LIPA, LIPID ####[facility] [address] [place], [place] [address]Dr. Abby Sanchez Chloride [Moles/Vol] 103 mmol/L Normal 98-107 The [facility] Comment on above: Performed By: #### C MP, LIPA, LIPID ####[facility] [address] [place], [place] [address]Dr. Abby Sanchez CO2 [Moles/Vol] 28.8 mmol/L Normal 21.0-32.0 The [facility] Comment on above: Performed By: #### C MP, LIPA, LIPID ####[facility] [address] [place], [place] [address]Dr. Abby Sanchez Creatinine [Mass/Vol] 0.76 mg/dL Normal 0.55-1.02 The [facility] Comment on above: Performed By: #### C MP, LIPA, LIPID ####[facility] [address] [place], [place] [address]Dr. Abby Sanchez EGFR-AF GAMBIAN >60 Normal >=60 The [facility] Comment on above: Performed By: #### C MP, LIPA, LIPID ####[facility] [address] [place], [place] [address]Dr. Abby Sanchez EGFR-NON AF GAMBIAN >60 Normal >=60 The [facility] Comment on above: Performed By: #### C MP, LIPA, LIPID ####[facility] [address] [place], [place] [address]Dr. Abby Sanchez Globulin (S) [Mass/Vol] 4.1 g/dL Normal The [facility] Comment on above: Performed By: #### C MP, LIPA, LIPID ####[facility] [address] [address]Dr. Abby Sanchez Glucose [Mass/Vol] 111 mg/dL Critically high 74-106 [facility] Comment on above: Performed By: #### C MP, LIPA, LIPID ####[facility] [address] [address]Dr. Abby Sanchez Potassium [Moles/Vol] 4.6 mmol/L Normal 3.5-5.1 [facility] Comment on above: Performed By: #### C MP, LIPA, LIPID ####[facility] [address] [address]Dr. Abby Sanchez Protein [Mass/Vol] 7.4 g/dL Normal 6.4-8.2 [facility] Comment on above: Performed By: #### C MP, LIPA, LIPID ####[facility] [address] [address]Dr. Abby Sanchez Sodium [Moles/Vol] 139 mmol/L Normal 136-145 [facility] Comment on above: Performed By: #### C MP, LIPA, LIPID ####[facility] [address] [address]Dr. Abby Sanchez Urea nitrogen [Mass/Vol] 12.0 mg/dL Normal 7.0-18.0 [facility] Comment on above: Performed By: #### C MP, LIPA, LIPID ####[facility] [address] [address]Dr. Abby Sanchez Urea nitrogen/Creatinine [Mass ratio] 15.8 mg/mg [facility] Comment on above: Performed By: #### C MP, LIPA, LIPID ####[facility] [address] [address]Dr. Abby Sanchez INFLUENZA A AND B AGon 10-14 INFLUANEGH SEE BELOW Normal [facility] Comment on above: Result Comment: Nega tive for Flu A protein angiten. Infection due to Flu A cannot be ruled out. Flu A angiten in the sample may be below the detection limit of the test. Performed By: #### I NFLUAB #### [facility] [address] [place] [address] Dr. Abby Sanchez [facility] SEE BELOW Normal The [facility] Comment on above: Result Comment: Nega tive for Flu B protein antigen. Infection due to Flu B cannot be ruled out. Flu B antigen in the sample may be below the detection limit of the test. Performed By: #### I NFLUAB #### [facility] [address] [place] [address] Dr. Abby Sanchez INFLUENZA A AG Negative Normal NEGATIVE SEE COMMENT The [facility] Comment on above: Performed By: #### I NFLUAB #### [facility] [address] [place] [address] Dr. Abby Sanchez INFLUENZA B AG Negative Normal NEGATIVE SEE COMMENT The [facility] Comment on above: Performed By: #### I NFLUAB #### [facility] [address] [place] [address] Dr. Abby Sanchez INTERNAL CONTROLS Within Normal Limits Normal Wi thin Normal Limits The [facility] Comment on above: Performed By: #### I NFLUAB #### [facility] [address] [place] [address] Dr. Abby Sanchez XR CHEST 1 Von [...] CEASAR RENTERIA Date: 2021-10-14 13:03 Normal The [facility] Covid-19 PCR (CVDTB)on SARS-CoV-2 (COVID-19) RNA HAO+probe Ql (Unsp spec) Detected Critically abnormal NOT DETECTED The [facility] Comment on above: Result Comment: This test is not yet approved or cleared by the [place] FDA. When there are no FDA-approved or cleared tests available, and other criteria are met, FDA can make tests available under an emergency access mechanism called an Emergency Use Authorization (EUA). The EUA for this test is supported by the Anesthesia Associate of Health and Human Service's declaration that [...] longer be used). Performed By: #### C [facility] ####[facility] [address] [place], [place] [address]HsChandrakant Sanchez XR HAND RIGHT (MIN 3 VIEWS)o [...] Deyanira Cortés MD 04/25/19 Final result Normal [facility] C-Reactive Proteinon 019 CRP [Mass/Vol] 57.2 mg/L High 0.0-5.0 [facility] Comment on above: Performed By: #### C DP, CRP #### [facility] [address] [place] [address] Icer Hand: Wang Day MD CBC with Diffon 12-17-2018 Abs. Basophil 0.04 k/uL Normal 0.00-0.20 [facility] Comment on above: Performed By: #### C DP, CRP #### [facility] [address] [place] [address] Icer Hand: Wang Day MD Abs.Imm.Granulocyte 0.03 k/uL Normal 0.00-0.30 [facility] Comment on above: Performed By: #### C DP, CRP #### [facility] [address] [place] [address] Icer Hand: Wang Day MD Abs.Neutrophil (Seg) 6.82 k/uL Normal 1.50-8.10 [facility] Comment on above: Performed By: #### C DP, CRP #### [facility] [address] [place] [address] Icer Hand: Wang Day MD Basophils/100 WBC (Bld) 0 % Normal 0-2 [facility] Comment on above: Performed By: #### C DP, CRP #### [address] [place] [address] Icer Hand: Wang Day MD Eosinophils (Bld) [#/Vol] 0.11 10*3/uL Normal 0.00-0.44 [facility] Comment on above: Performed By: #### C DP, CRP #### [address] [place] [address] Icer Hand: Wang Day MD Eosinophils/100 WBC (Bld) 1 % Normal 1-4 [facility] Comment on above: Performed By: #### C DP, CRP #### [address] [place] [address] Icer Hand: Wang Day MD Erythrocyte distribution width (RBC) [Ratio] 12.6 % Normal 11.8-14.4 [facility] Comment on above: Performed By: #### C DP, CRP #### [address] [place] [address] Icer Hand: Wang Day MD Hematocrit (Bld) [Volume fraction] 36.5 % Normal 36.3-47.1 [facility] Comment on above: Performed By: #### C DP, CRP #### [address] [place] [id number] Icer Hand: Wang Day MD Hemoglobin (Bld) [Mass/Vol] 12.1 g/dL Normal 11.9-15.1 [facility] Comment on above: Performed By: #### C DP, CRP #### [facility] [address] [place], [place] [id number] Icer Hand: Wang Day MD Immature granulocytes (Bld) [#/Vol] 0 % Normal 0 [facility] Comment on above: Performed By: #### C DP, CRP #### [facility] [address] [place] [address] Icer Hand: Wang Day MD Lymphocytes (Bld) [#/Vol] 1.57 10*3/uL Normal 1.10-3.70 [facility] Comment on above: Performed By: #### C DP, CRP #### [facility] [address] [place], [facility]83 Icer Hand: Wang Day MD Lymphocytes/100 WBC (Bld) 17 % Low 24-43 [facility] Comment on above: Performed By: #### C DP, CRP #### [facility] [address] [place], [place] [id number] Icer Hand: Wang Day MD MCH (RBC) [Entitic mass] 31.3 pg Normal 25.2-33.5 [facility] Comment on above: Performed By: #### C DP, CRP #### [facility] [address] [place], [facility]83 Icer Hand: Wang Day MD MCHC (RBC) [Mass/Vol] 33.2 g/dL Normal 28.4-34.8 [facility] Comment on above: Performed By: #### C DP, CRP #### [facility] [address] [place] [address] Icer Hand: Wang Day MD MCV (RBC) [Entitic vol] 94.6 fL Normal 82.6-102.9 [facility] Comment on above: Performed By: #### C DP, CRP #### [facility] [address] [place], [place] [address] Icer Hand: Wang Day MD Monocytes (Bld) [#/Vol] 0.84 10*3/uL Normal 0.10-1.20 [facility] Comment on above: Performed By: #### C DP, CRP #### [facility] [address] [place], [place] [address] Icer Hand: Wang Day MD Monocytes/100 WBC (Bld) 9 % Normal 3-12 [facility] Comment on above: Performed By: #### C DP, CRP #### [facility] [address] [place], [place] [address] Icer Hand: Wang Day MD Neutrophil (Seg) 73 % High 36-65 [facility] Comment on above: Performed By: #### C DP, CRP #### [facility] [address] [place], [place] [address] Icer Hand: Wang Day MD NRBC Automated 0.0 per 100 WBC Normal 0.0 [facility] Comment on above: Performed By: #### C DP, CRP #### [facility] [address] [place], [place] [address] Icer Hand: Wang Day MD Platelet mean volume (Bld) [Entitic vol] 9.8 fL Normal 8.1-13.5 [facility] Comment on above: Performed By: #### C DP, CRP #### [facility] [address] [place], [place] [address] Icer Hand: Wang Day MD Platelets (Bld) [#/Vol] 290 10*3/uL Normal 138-453 [facility] Comment on above: Performed By: #### C DP, CRP #### [facility] [address] [place], [place] [id number] Icer Hand: Wang Day MD RBC (Bld) [#/Vol] 3.86 10*6/uL Low 3.95-5.11 [facility] Comment on above: Performed By: #### C DP, CRP #### [facility] [address] [place], [place] [id number] Icer Hand: Wang Day MD WBC (Bld) [#/Vol] 9.4 10*3/uL Normal 3.5-11.3 [facility] Comment on above: Performed By: #### C DP, CRP #### [address] [place], [place] [address] Icer Hand: Wang Day MD Auto Diff Performed NOT REPORTED Normal [facility] Comment on above: Performed By: #### C DP, CRP #### [address] [place], [facility] Icer Hand: Wang Day MD Platelets (Bld) [#/Vol] NOT REPORTED Normal [facility] Comment on above: Performed By: #### C DP, CRP #### [address] [place], [facility]83 Icer Hand: Wang Day MD RBC morphology finding Nom (Bld) NOT REPORTED Normal [facility] Comment on above: Performed By: #### C DP, CRP #### [facility] [address] [place], [facility]83 Icer Hand: Wang Dya MD WBC Morphology NOT REPORTED Normal [facility] Comment on above: Performed By: #### C DP, CRP #### [facility] [address] [place], [place] [id number] Icer Hand: Wang Day MD Urinalysis w/ Microon 2018 ----- Normal [facility] Comment on above: Performed By: #### U AMIC #### [facility] [address] [place], [place] [address] Icer Hand: Wang Day MD Acetoacetic Acid,Ur TRACE Abnormal [facility] Comment on above: Performed By: #### U AMIC #### [facility] [address] [place] [address] Icer Hand: Wang Day MD Amorphous sediment LM Ql (Urine sed) TRACE Abnormal [facility] Comment on above: Performed By: #### U AMIC #### [facility] [address] [place] [id number] Icer Hand: Wang Day MD Bacteria LM.HPF (Urine sed) [#/Area] TRACE Abnormal [facility] Comment on above: Performed By: #### U AMIC #### [address] [place] [address] Icer Hand: Wang Day MD Bilirubin, SemiQt,Ur Negative Normal [facility] Comment on above: Performed By: #### U AMIC #### [address] [place] [id number] Icer Hand: Wang Day MD Color (U) YELLOW Normal L [facility] Comment on above: Performed By: #### U AMIC #### [facility] [address] [place] [id number] Icer Hand: Wang Day MD Epithelial cells LM.HPF (Urine sed) [#/Area] 2 TO 5 Normal 0-25 [facility] Comment on above: Performed By: #### U AMIC #### [facility] [address] [place], [place] [address] Icer Hand: Wang Day MD Glucose Ql (U) Negative Normal [facility] Comment on above: Performed By: #### U AMIC #### [facility] [address] [place] [address] Icer Hand: Wang Day MD Hemoglobin, Ur 1+ Abnormal NEG [facility] Comment on above: Performed By: #### U AMIC #### [facility] [address] [place] [address] Icer Hand: Wang Day MD Leukocyte esterase Test strip Ql (U) Negative Normal NEG [facility] Comment on above: Performed By: #### U AMIC #### [facility] [address] [place] [address] Icer Hand: Wang Day MD Nitrite,Ur Negative Normal NEG [facility] Comment on above: Performed By: #### U AMIC #### [facility] [address] [place] [address] Icer Hand: Wang Day MD pH (U) 7.5 [pH] Normal 5.0-9.0 [facility] Comment on above: Performed By: #### U AMIC #### [facility] [address] [place], [place] [id number] Icer Hand: Wang Day MD Protein Ql (U) TRACE Abnormal NEG [facility] Comment on above: Performed By: #### U AMIC #### [facility] [address] [place] [address] Icer Hand: Wang Day MD RBC (U) [#/Vol] 10 TO 20 Normal 0-2 [facility] Comment on above: Performed By: #### U AMIC #### [facility] [address] [place] [address] Icer Hand: Wang Day MD Specific gravity (U) [Rel density] 1.010 Normal 1.010-1.020 [facility] Comment on above: Performed By: #### U AMIC #### [facility] [address] [place] [address] Icer Hand: Wang Day MD Turbidity CLEAR Normal CLEAR [facility] Comment on above: Performed By: #### U AMIC #### [facility] [address] [place] [address] Icer Hand: Wang Day MD Urobilinogen,Ur ELEVATED Abnormal NORM [facility] Comment on above: Performed By: #### U AMIC #### [facility] [address] [place], [place] [id number] Icer Hand: Wang Day MD WBC (U) [#/Vol] 0 TO 2 Normal 0-5 [facility] Comment on above: Performed By: #### U AMIC #### [facility] [address] [place], [place] [phone] Icer Hand: Wang Day MD Casts LM.LPF (Urine sed) [#/Area] NOT REPORTED Normal [facility] Comment on above: Performed By: #### U AMIC #### [facility] [address] [place], [place] [phone] Icer Hand: Wang Day MD Comment NOT REPORTED Normal [facility] Comment on above: Performed By: #### U AMIC #### [facility] [address] [place], [place] [phone] Icer Hand: Wang Day MD Crystals LM Nom (Urine sed) NOT REPORTED Normal [facility] Comment on above: Performed By: #### U AMIC #### [facility] [address] [place], [place] 1886[address] Icer Hand: Wang Day MD Epithelial, Renal NOT REPORTED Normal 0 [facility] Comment on above: Performed By: #### U AMIC #### [facility] [address] [place] [address] Icer Hand: Wang Day MD Mucus Strands NOT REPORTED Normal [facility] Comment on above: Performed By: #### U AMIC #### [facility] [address] [place], [place] [id number] Icer Hand: Wang Day MD Other Observations NOT REPORTED [facility] on above: Performed By: #### U AMIC #### [facility] [address] [place], [place] [id number] Icer Hand: Wang Day MD Trichomonas NOT REPORTED Normal [facility] Comment on above: Performed By: #### U AMIC #### [facility] [address] [place], [place] [phone] Icer Hand: Wang Day MD Yeast LM Ql (Urine sed) NOT REPORTED Normal [facility] Comment on above: Performed By: #### U AMIC #### [facility] [address] [place] [address] Icer Hand: Wang Day MD Basic Metabolic Profon 12-13 (cont.) Normal [facility] Comment on above: Result Comment: Aver age GFR for 50-59 years old: 93 mL/min/1.73sq m Chronic Kidney Disease: <60 mL/min/1.73sq m Kidney failure: <15 mL/min/1.73sq m eGFR calculated using average adult body mass. Additional eGFR calculator available at: http://www.[employer]/multiple_crcl_2012.htm Performed By: #### C BC, BMP #### [facility] [address] [place], [place] [phone] Icer Hand: Sebastián Garsia MD Anion gap [Moles/Vol] 11 mmol/L Normal 9-17 [facility] Comment on above: Performed By: #### C BC, BMP #### [facility] [address], [place] [phone] Icer Hand: Sebastián Garsia MD Calcium [Mass/Vol] 8.3 mg/dL Low 8.6-10.4 [facility] Comment on above: Performed By: #### C BC, BMP #### [facility] [address] [place] [address] Icer Hand: Sebastián Garsia MD Chloride [Moles/Vol] 106 mmol/L Normal 98-107 [facility] Comment on above: Performed By: #### C BC, BMP #### [facility] [address] [place] [address] Icer Hand: Sebastián Garsia MD CO2 [Moles/Vol] 24 mmol/L Normal 20-31 [facility] Comment on above: Performed By: #### C BC, BMP #### [facility] [address] [place] [address] Icer Hand: Sebastián Garsia MD Creatinine [Mass/Vol] 0.60 mg/dL Normal 0.50-0.90 [facility] Comment on above: Performed By: #### C BC, BMP #### [facility] [address] [place] [address] Icer Hand: Sebastián Garsia MD GFR, Amer >60 Normal >60 [facility] Comment on above: Performed By: #### C BC, BMP #### [facility] [address] [place] [address] Icer Hand: Sebastián Garsia MD GFR,non Amer >60 Normal >60 [facility] Comment on above: Performed By: #### C BC, BMP #### [facility] [address] [place] [address] Icer Hand: Sebastián Garsia MD Glucose [Mass/Vol] 106 mg/dL High 70-99 [facility] Comment on above: Performed By: #### C BC, BMP #### [facility] [address] [place] [address] Icer Hand: Sebastián Garsia MD Potassium [Moles/Vol] 4.4 mmol/L Normal 3.7-5.3 [facility] Comment on above: Performed By: #### C BC, BMP #### [address] [address] Icer Hand: Sebastián Garsia MD Sodium [Moles/Vol] 141 mmol/L Normal 135-144 [facility] Comment on above: Performed By: #### C BC, BMP #### [address] [address] Icer Hand: Sebastián Garsia MD Urea nitrogen [Mass/Vol] 11 mg/dL Normal -20 [facility] Comment on above: Performed By: #### C BC, BMP #### [facility] [place] [facility] [employer] [address] [place] [address] Icer Hand: Sebastián Garsia MD BUN/CRE Ratio NOT REPORTED Normal - [facility] Comment on above: Performed By: #### C BC, BMP #### [address] [address] Icer Hand: Sebastián Garsia MD Staging: NOT REPORTED Normal [facility] Comment on above: Performed By: #### C BC, BMP #### [address] [address] Icer Hand: Sebastián Garsia MD CBCon 12-13-2018 Erythrocyte distribution width (RBC) [Ratio] 13.1 % Normal 11.8-14.4 [facility] Comment on above: Performed By: #### C BC, BMP #### [facility] [place] [facility] [employer] [address] [place] [address] Icer Hand: Sebastián Garsia MD Hematocrit (Bld) [Volume fraction] 35.7 % Low 36.3-47.1 [facility] Comment on above: Performed By: #### C BC, BMP #### [facility] [place] [facility] [employer] [address] [place] [address] Icer Hand: Sebastián Garsia MD Hemoglobin (Bld) [Mass/Vol] 11.6 g/dL Low 11.9-15.1 [facility] Comment on above: Performed By: #### C BC, BMP #### [address] [address] Icer Hand: Sebastián Garsia MD MCH (RBC) [Entitic mass] 31.6 pg Normal 25.2-33.5 [facility] Comment on above: Performed By: #### C BC, BMP #### [address] [address] Icer Hand: Sebastián Garsia MD MCHC (RBC) [Mass/Vol] 32.5 g/dL Normal 28.4-34.8 [facility] Comment on above: Performed By: #### C BC, BMP #### [address] [address] Icer Hand: Sebastián Garsia MD MCV (RBC) [Entitic vol] 97.3 fL Normal 82.6-102.9 [facility] Comment on above: Performed By: #### C BC, BMP #### [facility] [place] [facility] [employer] [address] [place] [address] Icer Hand: Sebastián Garsia MD NRBC Automated 0.0 per 100 WBC Normal 0.0 [facility] Comment on above: Performed By: #### C BC, BMP #### [facility] [place] [facility] [employer] [address] [place] [phone] Icer Hand: Sebastián Garsia MD Platelet mean volume (Bld) [Entitic vol] 10.1 fL Normal 8.1-13.5 [facility] Comment on above: Performed By: #### C BC, BMP #### [facility] [place] [facility] [employer] [address] [place] [address] Icer Hand: Sebastián Garsia MD Platelets (Bld) [#/Vol] 260 10*3/uL Normal 138-453 [facility] Comment on above: Performed By: #### C BC, BMP #### [facility] [address] [place] [address] Icer Hand: Sebastián Garsia MD RBC (Bld) [#/Vol] 3.67 10*6/uL Low 3.95-5.11 [facility] Comment on above: Performed By: #### C BC, BMP #### [facility] [facility] [address] [place] [address] Icer Hand: Sebastián Garsia MD WBC (Bld) [#/Vol] 9.5 10*3/uL Normal 3.5-11.3 [facility] Comment on above: Performed By: #### C BC, BMP #### [facility] [address] [place] [address] Icer Hand: Sebastián Garsia MD Basic Metabolic Profon 12-08 (cont.) Normal [facility] Comment on above: Result Comment: Aver age GFR for 50-59 years old: 93 mL/min/1.73sq m Chronic Kidney Disease: <60 mL/min/1.73sq m Kidney failure: <15 mL/min/1.73sq m eGFR calculated using average adult body mass. Additional eGFR calculator available at: http://www.[employer]/multiple_crcl_2011.htm Performed By: #### C DP, BMP #### [facility] [address] [place] [address] Icer Hand: Wang Day MD Anion gap [Moles/Vol] 10 mmol/L Normal -17 [facility] Comment on above: Performed By: #### C DP, BMP #### [facility] [address] [place] [address] Icer Hand: Wang Day MD BUN/CRE Ratio 15 Normal - [facility] Comment on above: Performed By: #### C DP, BMP #### [facility] [address] [place], [place] [id number] Icer Hand: Wang Day MD Calcium [Mass/Vol] 9.6 mg/dL Normal 8.6-10.4 [facility] Comment on above: Performed By: #### C DP, BMP #### [facility] [address] [place], [place] [id number] Icer Hand: Wang Day MD Chloride [Moles/Vol] 101 mmol/L Normal 98-107 [facility] Comment on above: Performed By: #### C DP, BMP #### [facility] [address] [place], [place] [id number] Icer Hand: Wang Day MD CO2 [Moles/Vol] 26 mmol/L Normal 20-31 [facility] Comment on above: Performed By: #### C DP, BMP #### [facility] [address] [place], [place] [address] Icer Hand: Wang Day MD Creatinine [Mass/Vol] 0.68 mg/dL Normal 0.50-0.90 [facility] Comment on above: Performed By: #### C DP, BMP #### [facility] [address] [place], [place] [id number] Icer Hand: Wang Day MD GFR, Amer >60 Normal >60 [facility] Comment on above: Performed By: #### C DP, BMP #### [facility] [address] [place], [place] [phone] Icer Hand: Wang Day MD GFR,non Amer >60 Normal >60 [facility] Comment on above: Performed By: #### C DP, BMP #### [facility] [address] [place], [place] [phone] Icer Hand: Wang Day MD Glucose [Mass/Vol] 95 mg/dL Normal 70-99 [facility] Comment on above: Performed By: #### C DP, BMP #### [facility] [address] [place], [facility]83 Icer Hand: Wang Day MD Potassium [Moles/Vol] 4.5 mmol/L Normal 3.7-5.3 [facility] Comment on above: Performed By: #### C DP, BMP #### [facility] [address] [place], [facility]83 Icer Hand: Wang Day MD Sodium [Moles/Vol] 137 mmol/L Normal 135-144 [facility] Comment on above: Performed By: #### C DP, BMP #### [facility] [address] [place] [id number] Icer Hand: Wang Day MD Staging: Normal [facility] Comment on above: Result Comment: Stag e 1: Some kidney damage normal GFR Stage 2: Mild kidney damage GFR 60-89 Stage 3: Moderate kidney damage GFR 30-59 Stage 4: Severe kidney damage GFR 15-29 Stage 5: Severe kidney damage GFR <15 ESRD - chronic treatment by dialysis or transplant Performed By: #### C DP, BMP #### [address] [place], [facility]83 Icer Hand: Wang Day MD Urea nitrogen [Mass/Vol] 10 mg/dL Normal 6-20 [facility] Comment on above: Performed By: #### C DP, BMP #### [facility] [address] [place], [facility]83 Icer Hand: Wang Day MD CBC with Diffon 12-08-2018 Abs. Basophil 0.06 k/uL Normal 0.00-0.20 [facility] Comment on above: Performed By: #### C DP, BMP #### [facility] [address] [place] [address] Icer Hand: Wang Day MD Abs.Imm.Granulocyte 0.03 k/uL Normal 0.00-0.30 [facility] Comment on above: Performed By: #### C DP, BMP #### [facility] [address] [place] [address] Icer Hand: Wang Day MD Abs.Neutrophil (Seg) 5.90 k/uL Normal 1.50-8.10 [facility] Comment on above: Performed By: #### C DP, BMP #### [facility] [address] [place], [place] [address] Icer Hand: Wang Day MD Basophils/100 WBC (Bld) 1 % Normal 0-2 [facility] Comment on above: Performed By: #### C DP, BMP #### [address] [place] [address] Icer Hand: Wang Day MD Eosinophils (Bld) [#/Vol] 0.16 10*3/uL Normal 0.00-0.44 [facility] Comment on above: Performed By: #### C DP, BMP #### [address] [place], [place] [address] Icer Hand: Wang Day MD Eosinophils/100 WBC (Bld) 2 % Normal 1-4 [facility] Comment on above: Performed By: #### C DP, BMP #### [address] [place], [place] [address] Icer Hand: Wang Day MD Erythrocyte distribution width (RBC) [Ratio] 12.9 % Normal 11.8-14.4 [facility] Comment on above: Performed By: #### C DP, BMP #### [address] [place] [phone] Icer Hand: Wang Day MD Hematocrit (Bld) [Volume fraction] 44.4 % Normal 36.3-47.1 [facility] Comment on above: Performed By: #### C DP, BMP #### [address] [place], [place] [address] Icer Hand: Wang Day MD Hemoglobin (Bld) [Mass/Vol] 14.3 g/dL Normal 11.9-15.1 [facility] Comment on above: Performed By: #### C DP, BMP #### [facility] [address] [place] [id number] Icer Hand: Wang Day MD Immature granulocytes (Bld) [#/Vol] 0 % Normal 0 [facility] Comment on above: Performed By: #### C DP, BMP #### [facility] [address] [place] [facility]83 Icer Hand: Wang Day MD Lymphocytes (Bld) [#/Vol] 2.20 10*3/uL Normal 1.10-3.70 [facility] Comment on above: Performed By: #### C DP, BMP #### [facility] [address] [place], [facility]83 Icer Hand: Wang Day MD Lymphocytes/100 WBC (Bld) 25 % Normal 24-43 [facility] Comment on above: Performed By: #### C DP, BMP #### [facility] [address] [place], [place] [id number] Icer Hand: Wang Day MD MCH (RBC) [Entitic mass] 31.3 pg Normal 25.2-33.5 [facility] Comment on above: Performed By: #### C DP, BMP #### [facility] [address] [place], [facility]83 Icer Hand: Wang Day MD MCHC (RBC) [Mass/Vol] 32.2 g/dL Normal 28.4-34.8 [facility] Comment on above: Performed By: #### C DP, BMP #### [facility] [address] [place] [id number] Icer Hand: Wang Day MD MCV (RBC) [Entitic vol] 97.2 fL Normal 82.6-102.9 [facility] Comment on above: Performed By: #### C DP, BMP #### [facility] [address] [place], [facility]83 Icer Hand: Wang Day MD Monocytes (Bld) [#/Vol] 0.57 10*3/uL Normal 0.10-1.20 [facility] Comment on above: Performed By: #### C DP, BMP #### [facility] [address] [place], [place] [address] Icer Hand: Wang Day MD Monocytes/100 WBC (Bld) 6 % Normal 3-12 [facility] Comment on above: Performed By: #### C DP, BMP #### [facility] [address] [place], [place] [address] Icer Hand: Wang Day MD Neutrophil (Seg) 66 % High 36-65 [facility] Comment on above: Performed By: #### C DP, BMP #### [facility] [address] [place], [place] [address] Icer Hand: Wang Day MD NRBC Automated 0.0 per 100 WBC Normal 0.0 [facility] Comment on above: Performed By: #### C DP, BMP #### [facility] [address] [place], [place] [address] Icer Hand: Wang Day MD Platelet mean volume (Bld) [Entitic vol] 9.9 fL Normal 8.1-13.5 [facility] Comment on above: Performed By: #### C DP, BMP #### [facility] [address] [place], [place] [address] Icer Hand: Wang Day MD Platelets (Bld) [#/Vol] 298 10*3/uL Normal 138-453 [facility] Comment on above: Performed By: #### C DP, BMP #### [facility] [address] [place], [place] [address] Icer Hand: Wang Day MD RBC (Bld) [#/Vol] 4.57 10*6/uL Normal 3.95-5.11 [facility] Comment on above: Performed By: #### C DP, BMP #### [address] [place] [address] Icer Hand: Wang Day MD WBC (Bld) [#/Vol] 8.9 10*3/uL Normal 3.5-11.3 [facility] Comment on above: Performed By: #### C DP, BMP #### [address] [place], [place] [address] Icer Hand: Wang Day MD Auto Diff Performed NOT REPORTED Normal [facility] Comment on above: Performed By: #### C DP, BMP #### [address] [place], [place] [address]83 Icer Hand: Wang Day MD Platelets (Bld) [#/Vol] NOT REPORTED Normal [facility] Comment on above: Performed By: #### C DP, BMP #### [address] [place] [address] Icer Hand: Wang Day MD RBC morphology finding Nom (Bld) NOT REPORTED Normal [facility] Comment on above: Performed By: #### C DP, BMP #### [address] [place] [address] Icer Hand: Wang Day MD WBC Morphology NOT REPORTED Normal [facility] Comment on above: Performed By: #### C DP, BMP #### [address] [place] [address] Icer Hand: Wang Day MD CARDIAC STRESS TEST 2018 CARDIAC STRESS TEST [address] [place] [address] CARDIAC STRESS TEST PATIENT NAME: FABRIZIO ECKERT : 1965 MED REC NO: [id number] ROOM: ACCOUNT NO: [id number] ADMIT DATE: 12/05/2018 PROVIDER: Rhett Naqvi CARDIOVASCULAR [...] BETTE/CANDIS_ALEX Doc#: Unknown CC: Laura Ramirez Normal [facility] CBC with Diffon 10-23-2018 Abs. Basophil 0.04 k/uL Normal 0.00-0.20 [facility] Comment on above: Performed By: #### C DP, CPBILC, LIPR, TSHX #### [facility] [address] [place] [address] Icer Hand: Wang Day MD Abs.Imm.Granulocyte <0.03 Normal 0.00-0.30 [facility] Comment on above: Performed By: #### C DP, CPBILC, LIPR, TSHX #### [facility] [address] [place] [phone] Icer Hand: Wang Day MD Abs.Neutrophil (Seg) 3.34 k/uL Normal 1.50-8.10 [facility] Comment on above: Performed By: #### C DP, CPBILC, LIPR, TSHX #### [facility] [address] [place], [place] [address] Icer Hand: Wang Day MD Basophils/100 WBC (Bld) 1 % Normal 0-2 [facility] Comment on above: Performed By: #### C DP, CPBILC, LIPR, TSHX #### [address] [place], [place] [address] Icer Hand: Wang Day MD Eosinophils (Bld) [#/Vol] 0.14 10*3/uL Normal 0.00-0.44 [facility] Comment on above: Performed By: #### C DP, CPBILC, LIPR, TSHX #### [facility] [address] [place] [address] Icer Hand: Wang Day MD Eosinophils/100 WBC (Bld) 2 % Normal 1-4 [facility] Comment on above: Performed By: #### C DP, CPBILC, LIPR, TSHX #### [facility] [address] [place], [facility]83 Icer Hand: Wang Day MD Erythrocyte distribution width (RBC) [Ratio] 13.1 % Normal 11.8-14.4 [facility] Comment on above: Performed By: #### C DP, CPBILC, LIPR, TSHX #### [facility] [address] [place], [place] [address] Icer Hand: Wang Day MD Hematocrit (Bld) [Volume fraction] 45.3 % Normal 36.3-47.1 [facility] Comment on above: Performed By: #### C DP, CPBILC, LIPR, TSHX #### [facility] [address] [place] [address] Icer Hand: Wang Day MD Hemoglobin (Bld) [Mass/Vol] 14.8 g/dL Normal 11.9-15.1 [facility] Comment on above: Performed By: #### C DP, CPBILC, LIPR, TSHX #### [facility] [address] [place], [place] [address] Icer Hand: Wang Day MD Immature granulocytes (Bld) [#/Vol] 0 % Normal 0 [facility] Comment on above: Performed By: #### C DP, CPBILC, LIPR, TSHX #### [facility] [address] [place], [place] [address] Icer Hand: Wang Day MD Lymphocytes (Bld) [#/Vol] 1.87 10*3/uL Normal 1.10-3.70 [facility] Comment on above: Performed By: #### C DP, CPBILC, LIPR, TSHX #### [facility] [address] [place], [facility]83 Icer Hand: Wang Day MD Lymphocytes/100 WBC (Bld) 33 % Normal 24-43 [facility] Comment on above: Performed By: #### C DP, CPBILC, LIPR, TSHX #### [facility] [address] [place] [address] Icer Hand: Wang Day MD MCH (RBC) [Entitic mass] 30.9 pg Normal 25.2-33.5 [facility] Comment on above: Performed By: #### C DP, CPBILC, LIPR, TSHX #### [facility] [address] [place], [place] [phone] Icer Hand: Wang Day MD MCHC (RBC) [Mass/Vol] 32.7 g/dL Normal 28.4-34.8 [facility] Comment on above: Performed By: #### C DP, CPBILC, LIPR, TSHX #### [address] [place] [phone] Icer Hand: Wang Day MD MCV (RBC) [Entitic vol] 94.6 fL Normal 82.6-102.9 [facility] Comment on above: Performed By: #### C DP, CPBILC, LIPR, TSHX #### [address] [place] [address] Icer Hand: Wang Day MD Monocytes (Bld) [#/Vol] 0.34 10*3/uL Normal 0.10-1.20 [facility] Comment on above: Performed By: #### C DP, CPBILC, LIPR, TSHX #### [address] [place] [address] Icer Hand: Wang Day MD Monocytes/100 WBC (Bld) 6 % Normal 3-12 [facility] Comment on above: Performed By: #### C DP, CPBILC, LIPR, TSHX #### [facility] [address] [place], [place] [phone] Icer Hand: Wang Day MD Neutrophil (Seg) 58 % Normal 36-65 [facility] Comment on above: Performed By: #### C DP, CPBILC, LIPR, TSHX #### [facility] [address] [place], [place] [address] Icer Hand: Wang Day MD NRBC Automated 0.0 per 100 WBC Normal 0.0 [facility] Comment on above: Performed By: #### C DP, CPBILC, LIPR, TSHX #### [facility] [address] [place], [place] [address] Icer Hand: Wang Day MD Platelet mean volume (Bld) [Entitic vol] 10.2 fL Normal 8.1-13.5 [facility] Comment on above: Performed By: #### C DP, CPBILC, LIPR, TSHX #### [address] [place], [place] [address] Icer Hand: Wang Day MD Platelets (Bld) [#/Vol] 297 10*3/uL Normal 138-453 [facility] Comment on above: Performed By: #### C DP, CPBILC, LIPR, TSHX #### [address] [place], [facility]83 Icer Hand: Wang Day MD RBC (Bld) [#/Vol] 4.79 10*6/uL Normal 3.95-5.11 [facility] Comment on above: Performed By: #### C DP, CPBILC, LIPR, TSHX #### [facility] [address] [place], [facility]83 Icer Hand: Wang Day MD WBC (Bld) [#/Vol] 5.7 10*3/uL Normal 3.5-11.3 [facility] Comment on above: Performed By: #### C DP, CPBILC, LIPR, TSHX #### [facility] [address] [place], [facility]83 Icer Hand: Wang Day MD Auto Diff Performed NOT REPORTED Normal [facility] Comment on above: Performed By: #### C DP, CPBILC, LIPR, TSHX #### [facility] [address] [place], [place] [id number] Icer Hand: Wang Day MD Platelets (Bld) [#/Vol] NOT REPORTED Normal [facility] Comment on above: Performed By: #### C DP, CPBILC, LIPR, TSHX #### [facility] [address] [place], [place] [id number] Icer Hand: Wang Day MD RBC morphology finding Nom (Bld) NOT REPORTED [facility] Comment on above: Performed By: #### C DP, CPBILC, LIPR, TSHX #### [facility] [address] [place], [place] [phone] Icer Hand: Wang Day MD WBC Morphology NOT REPORTED Normal [facility] Comment on above: Performed By: #### C DP, CPBILC, LIPR, TSHX #### [facility] [address] [place], [place] [id number] Icer Hand: Wang Day MD Cardiacon 10-23-2018 Cholesterol [Mass/Vol] 218 mg/dL High (<200) [facility] Work Phone: Comment on above: Note: Cholesterol Gu idelines: <200 Desirable 200-240 Borderline >240 Undesirable Responsible Observer: JOSIE MCCRACKEN ([id number]) Triglyceride [Mass/Vol] 131 mg/dL (<150) [facility] Work Phone: Comment on above: Note: Triglyceride G uidelines: <150 Desirable 150-199 Borderline 200-499 High >499 Very high Based on AHA Guidelines for fasting triglyceride, February 2012. Responsible Observer: JOSIE MCCRACKEN ([id number]) Comp Metab w/Bili Pron 10-23 (cont.) Normal [facility] Comment on above: Result Comment: Aver age GFR for 50-59 years old: 93 mL/min/1.73sq m Chronic Kidney Disease: <60 mL/min/1.73sq m Kidney failure: <15 mL/min/1.73sq m eGFR calculated using average adult body mass. Additional eGFR calculator available at: http://www.[employer]/multiple_crcl_2012.htm Performed By: #### C DP, CPBILC, LIPR, TSHX #### [facility] [address] [place], [place] [address] Icer Hand: Wang Day MD Albumin [Mass/Vol] 4.2 g/dL Normal 3.5-5.2 [facility] Comment on above: Performed By: #### C DP, CPBILC, LIPR, TSHX #### [facility] [address] [place], [place] [phone] Icer Hand: Wang Day MD Albumin/Globulin [Mass ratio] 1.2 {ratio} Normal 1.0-2.5 [facility] Comment on above: Performed By: #### C DP, CPBILC, LIPR, TSHX #### [facility] [address] [place], [place] [address]509683 Icer Hand: Wang Day MD Alkaline Phos 101 U/L Normal 35-104 [facility] Comment on above: Performed By: #### C DP, CPBILC, LIPR, TSHX #### [facility] [address] [place], [place] [address]64483 Icer Hand: Wang Day MD ALT [Catalytic activity/Vol] 15 U/L Normal 5-33 [facility] Comment on above: Performed By: #### C DP, CPBILC, LIPR, TSHX #### [facility] [address] [place], [place] [address] Icer Hand: Wang Day MD Anion gap [Moles/Vol] 12 mmol/L Normal 9-17 [facility] Comment on above: Performed By: #### C DP, CPBILC, LIPR, TSHX #### [facility] [address] [place], [place] [phone] Icer Hand: Wang Day MD AST [Catalytic activity/Vol] 15 U/L Normal <32 [facility] Comment on above: Performed By: #### C DP, CPBILC, LIPR, TSHX #### [facility] [address] [place], [place] [address]60383 Icer Hand: Wang Day MD Bilirubin Ql (U) 0.24 mg/dL Low 0.3-1.2 [facility] Comment on above: Performed By: #### C DP, CPBILC, LIPR, TSHX #### [facility] [address] [place], [place] [address] Icer Hand: Wang Day MD Bilirubin, Indirect CANNOT BE CALCULATED Normal 0.00-1 .00 [facility] Comment on above: Performed By: #### C DP, CPBILC, LIPR, TSHX #### [facility] [address] [place], [place] [address] Icer Hand: Wang Day MD Bilirubin.direct [Mass/Vol] mg/dL Normal <0.31 [facility] Comment on above: Performed By: #### C DP, CPBILC, LIPR, TSHX #### [facility] [address] [place], [place] [phone] Icer Hand: Wang Day MD Calcium [Mass/Vol] 9.3 mg/dL Normal 8.6-10.4 [facility] Comment on above: Performed By: #### C DP, CPBILC, LIPR, TSHX #### [facility] [address] [place], [place] [address] Icer Hand: Wang Day MD Chloride [Moles/Vol] 102 mmol/L Normal 98-107 [facility] Comment on above: Performed By: #### C DP, CPBILC, LIPR, TSHX #### [facility] [address] [place], [place] [id number] Icer Hand: Wang Day MD CO2 [Moles/Vol] 27 mmol/L Normal 20-31 [facility] Comment on above: Performed By: #### C DP, CPBILC, LIPR, TSHX #### [facility] [address] [place], [place] [phone] Icer Hand: Wang Day MD Creatinine [Mass/Vol] 0.64 mg/dL Normal 0.50-0.90 [facility] Comment on above: Performed By: #### C DP, CPBILC, LIPR, TSHX #### [facility] [address] [place], [place] [address] Icer Hand: Wang Day MD GFR, Amer >60 Normal >60 [facility] Comment on above: Performed By: #### C DP, CPBILC, LIPR, TSHX #### [facility] [address] [place], [place] [phone] Icer Hand: Wang Day MD GFR,non Amer >60 Normal >60 [facility] Comment on above: Performed By: #### C DP, CPBILC, LIPR, TSHX #### [address] [place], [place] [phone] Icer Hand: Wang Day MD Glucose [Mass/Vol] 123 mg/dL High 70-99 [facility] Comment on above: Performed By: #### C DP, CPBILC, LIPR, TSHX #### [facility] [address] [place] [address] Icer Hand: Wang Day MD Potassium [Moles/Vol] 4.6 mmol/L Normal 3.7-5.3 [facility] Comment on above: Performed By: #### C DP, CPBILC, LIPR, TSHX #### [facility] [address] [place] [address] Icer Hand: Wang Day MD Protein [Mass/Vol] 7.6 g/dL Normal 6.4-8.3 [facility] Comment on above: Performed By: #### C DP, CPBILC, LIPR, TSHX #### [facility] [address] [place] [address] Icer Hand: Wang Day MD Sodium [Moles/Vol] 141 mmol/L Normal 135-144 [facility] Comment on above: Performed By: #### C DP, CPBILC, LIPR, TSHX #### [facility] [address] [place] [address] Icer Hand: Wang Day MD Staging: Normal [facility] Comment on above: Result Comment: Stag e 1: Some kidney damage normal GFR Stage 2: Mild kidney damage GFR 60-89 Stage 3: Moderate kidney damage GFR 30-59 Stage 4: Severe kidney damage GFR 15-29 Stage 5: Severe kidney damage GFR <15 ESRD - chronic treatment by dialysis or transplant Performed By: #### C DP, CPBILC, LIPR, TSHX #### [address] [place] [address] Icer Hand: Wang Day MD Urea nitrogen [Mass/Vol] 15 mg/dL Normal 6-20 [facility] Comment on above: Performed By: #### C DP, CPBILC, LIPR, TSHX #### [facility] [address] [place] [address] Icer Hand: Wang Day MD Hematologyon 10-23-2018 Basophils/100 WBC (Bld) 1 % (0-2) [facility] Work Phone: Comment on above: Note: Responsible Ob sql server dba developer: XNT AUTOFILE ([id number]) Eosinophils (Bld) [#/Vol] 0.14 10*3/uL (0.00-0.44) [facility] Work Phone: Comment on above: Note: Responsible Ob sql server dba developer: [employer] AUTOFILE (3019) Eosinophils/100 WBC (Bld) 2 % (1-4) [facility] Work Phone: Comment on above: Note: Responsible Ob sql server dba developer: [employer] (3019) Hematocrit (Bld) [Volume fraction] 45.3 % (36.3-47.1) [facility] Work Phone: Comment on above: Note: Responsible Ob sql server dba developer: [employer] (3019) Hemoglobin (Bld) [Mass/Vol] 14.8 g/dL (11.9-15.1) [facility] Work Phone: Comment on above: Note: Responsible Ob sql server dba developer: [employer] AUTOFILE (3019) Lymphocytes (Bld) [#/Vol] 1.87 10*3/uL (1.10-3.70) [facility] Work Phone: Comment on above: Note: Responsible Ob sql server dba developer: [employer] (3019) Lymphocytes/100 WBC (Bld) 33 % (24-43) [facility] Work Phone: Comment on above: Note: Responsible Ob sql server dba developer: [employer] (3019) MCH (RBC) [Entitic mass] 30.9 pg (25.2-33.5) [facility] Work Phone: Comment on above: Note: Responsible Ob sql server dba developer: [employer] AUTOFILE (3019) MCV (RBC) [Entitic vol] 94.6 fL (82.6-102.9) [facility] Work Phone: Comment on above: Note: Responsible Ob sql server dba developer: [employer] AUTOFILE (3019) Monocytes (Bld) [#/Vol] 0.34 10*3/uL (0.10-1.20) [facility] Work Phone: Comment on above: Note: Responsible Ob sql server dba developer: [employer] AUTOFILE (3019) Monocytes/100 WBC (Bld) 6 % (3-12) [facility] Work Phone: Comment on above: Note: Responsible Ob sql server dba developer: [employer]NT AUTOFILE (9) Platelets (Bld) [#/Vol] NOT REPORTED [facility] Work Phone: Platelets (Bld) [#/Vol] 297 10*3/uL (138-453) [facility] Work Phone: Comment on above: Note: Responsible Ob sql server dba developer: XNT AUTOFILE ([id number]) RBC (Bld) [#/Vol] 4.79 10*6/uL (3.95-5.11) [facility] Work Phone: Comment on above: Note: Responsible Ob sql server dba developer: XNT AUTOFILE ([id number]) RBC morphology finding Nom (Bld) NOT REPORTED [facility] Work Phone: WBC (Bld) [#/Vol] 0.0 per_100_WBC (0.0) [facility] Work Phone: Comment on above: Note: Responsible Ob sql server dba developer: XNT AUTOFILE ([id number]) WBC (Bld) [#/Vol] 5.7 10*3/uL (3.5-11.3) [facility] Work Phone: Comment on above: Note: Responsible Ob sql server dba developer: XNT AUTOFILE ([id number]) Lipid Profileon 10-23-2018 Cholesterol [Mass/Vol] 218 mg/dL High <200 [facility] Comment on above: Result Comment: Cholesterol Guidelines: <200 Desirable 200-240 Borderline >240 Undesirable Performed By: #### C DP, CPBILC, LIPR, TSHX #### [facility] [address] [place] [address] Icer Hand: Wang Day MD Cholesterol in HDL [Mass/Vol] 57 mg/dL Normal >40 [facility] Comment on above: Result Comment: HDL Guidelines: <40 Undesirable 40-59 Borderline >59 Desirable Performed By: #### C DP, CPBILC, LIPR, TSHX #### [facility] [address] [place], [place] [id number] Icer Hand: Wang Day MD Cholesterol in LDL [Mass/Vol] 135 mg/dL High 0-130 [facility] Comment on above: Result Comment: LDL Guidelines: <100 Desirable 100-129 Near to/above Desirable 130-159 Borderline >159 Undesirable Direct (measured) LDL and calculated LDL are not interchangeable tests. Performed By: #### C DP, CPBILC, LIPR, TSHX #### [facility] [address] [place], [place] [id number] Icer Hand: Wang Day MD Cholesterol.total/C holesterol in HDL [Mass ratio] 3.8 {ratio} Normal <5 [facility] Comment on above: Performed By: #### C DP, CPBILC, LIPR, TSHX #### [facility] [address] [place] [address] Icer Hand: Wang Day MD Triglyceride [Mass/Vol] 131 mg/dL Normal <150 [facility] Comment on above: Result Comment: Triglyceride Guidelines: <150 Desirable 150-199 Borderline 200-499 High >499 Very high Based on AHA Guidelines for fasting triglyceride, February 2012. Performed By: #### C DP, CPBILC, LIPR, TSHX #### [facility] [address] [place] [address] Icer Hand: Wang Day MD Cholesterol in VLDL [Mass/Vol] NOT REPORTED Normal 30 [facility] Comment on above: Performed By: #### C DP, CPBILC, LIPR, TSHX #### [facility] [address] [place] [address] Icer Hand: Wang Day MD Metabolic Panelon 10-23-2018 Albumin [Mass/Vol] 4.2 g/dL (3.5-5.2) [facility] Work Phone: Comment on above: Note: Responsible Ob sql server dba developer: JOSIE Nichols1831) ALT [Catalytic activity/Vol] 15 U/L (5-33) [facility] Work Phone: Comment on above: Note: Responsible Ob sql server dba developer: JOSIE CHRISS-LILGE (1831) Anion gap [Moles/Vol] 12 mmol/L (9-17) [facility] Work Phone: Comment on above: Note: Responsible Ob sql server dba developer: JOSIE VEShashankDOS-LILGE (1831) AST [Catalytic activity/Vol] 15 U/L (<32) [facility] Work Phone: Comment on above: Note: Responsible Ob sql server dba developer: JOSIE CHRISS-LILGE (1831) Bilirubin [Mass/Vol] 0.24 mg/dL Low (0.3-1.2) [facility] Work Phone: Comment on above: Note: Responsible Ob sql server dba developer: JOSIE CHRISS-LILCURTIS (1831) Bilirubin.direct [Mass/Vol] mg/dL (<0.31) [facility] Work Phone: Comment on above: Note: Responsible Ob sql server dba developer: JOSIE CHRISS-LILCURTIS (1831) Calcium [Mass/Vol] 9.3 mg/dL (8.6-10.4) [facility] Work Phone: Comment on above: Note: Responsible Ob sql server dba developer: JOSIE CHRISS-LILCURTIS (1831) Chloride [Moles/Vol] 102 mmol/L (98-107) [facility] Work Phone: Comment on above: Note: Responsible Ob sql server dba developer: JOSIE VEZDOS-LILGE (1831) CO2 [Moles/Vol] 27 mmol/L (20-31) [facility] Work Phone: Comment on above: Note: Responsible Ob sql server dba developer: JOSIE PAVITHRAZDOS-LILGE (1831) Creatinine [Mass/Vol] 0.64 mg/dL (0.50-0.90) [facility] Work Phone: Comment on above: Note: Responsible Ob sql server dba developer: JOSIE MCCRACKEN (1831) Glucose [Mass/Vol] 123 mg/dL High (70-99) [facility] Work Phone: Comment on above: Note: Responsible Ob sql server dba developer: JOSIE MCCRACKEN (1831) Potassium [Moles/Vol] 4.6 mmol/L (3.7-5.3) [facility] Work Phone: Comment on above: Note: Responsible Ob sql server dba developer: JOSIE MCCRACKEN (1831) Protein [Mass/Vol] 7.6 g/dL (6.4-8.3) [facility] Work Phone: Comment on above: Note: Responsible Ob sql server dba developer: JOSIE MCCRACKEN (1831) Sodium [Moles/Vol] 141 mmol/L (135-144) [facility] Work Phone: Comment on above: Note: Responsible Ob sql server dba developer: JOSIE MCCRACKEN (1831) Urea nitrogen [Mass/Vol] 15 mg/dL (6-20) [facility] Work Phone: Comment on above: Note: Responsible Ob sql server dba developer: JOSIE MCCRACKEN (1831) Otheron 10-23-2018 (cont.) See Note [facility] Work Phone: Comment on above: Note: Average GFR fo r 50-59 years old: 93 mL/min/1.73sq mChronic Kidney Disease: <60 mL/min/1.73sq mKidney failure: <15 mL/min/1.73sq m eGFR calculated using average adult body mass. Additional eGFR calculator available at: http://www.RoomReveal.com/multiple_crcl_2011.htm Responsible Observer: JOSIE MCCRACKEN (1831) Abs. Basophil 0.04 k/uL (0.00-0.20) [facility] Work Phone: Comment on above: Note: Responsible Ob sql server dba developer: XNT AUTOFILE (3019) Abs.Imm.Granulocyte <0.03 k/uL (0.00-0.30) [facility] Work Phone: Comment on above: Note: Responsible Ob sql server dba developer: XNT AUTOFILE (3019) Abs.Neutrophil (Seg) 3.34 k/uL (1.50-8.10) [facility] Work Phone: Comment on above: Note: Responsible Ob sql server dba developer: XNT AUTOFILE (3019) Albumin/Glob Ratio 1.2 (1.0-2.5) [facility] Work Phone: Comment on above: Note: Responsible Ob sql server dba developer: JOSIE MCCRACKEN (1831) Alkaline Phos 101 U/L (35-104) [facility] Work Phone: Comment on above: Note: Responsible Ob sql server dba developer: JOSIE MCCRACKEN (1831) Auto Diff Performed NOT REPORTED [facility] Work Phone: Bilirubin, Indirect CANNOT BE CALCULATED mg/dL (0.00-1.00) [facility] Work Phone: Comment on above: Note: Responsible Ob sql server dba developer: JOSIE MCCRACKEN (1831) Cholesterol,HDL 57 mg/dL (>40) [facility] Work Phone: Comment on above: Note: HDL Guidelines : <40 Undesirable 40-59 Borderline >59 Desirable Responsible Observer: JOSIE MCCRACKEN (1831) Cholesterol,LDL 135 mg/dL High (0-130) [facility] Work Phone: Comment on above: Note: LDL Guidelines : <100 Desirable 100-129 Near to/above Desirable 130-159 Borderline >159 Undesirable Direct (measured) LDL and calculated LDL are not interchangeable tests.Responsible Observer: JOSIE MCCRACKEN (1831) Cholesterol,VLDL NOT REPORTED mg/dL (1-30) [facility] Work Phone: Cholesterol.total/C holesterol in HDL [Mass ratio] 3.8 {ratio} (<5) [facility] Work Phone: Comment on above: Note: Responsible Ob sql server dba developer: JOSIE MCCRACKEN (1831) Erythrocyte distribution width (RBC) [Ratio] 13.1 % (11.8-14.4) [facility] Work Phone: Comment on above: Note: Responsible Ob sql server dba developer: XNT AUTOFILE (3018) GFR, Amer >60 mL/min (>60) [facility] Work Phone: Comment on above: Note: Responsible Ob sql server dba developer: JOSIE MCCRACKEN (1831) GFR,non Amer >60 mL/min (>60) [facility] Work Phone: Comment on above: Note: Responsible Ob sql server dba developer: JOSIE MCCRACKEN (1831) Immature granulocytes (Bld) [#/Vol] 0 % (0) [facility] Work Phone: Comment on above: Note: Responsible Ob sql server dba developer: XNT AUTOFILE (3018) MCHC (RBC) [Mass/Vol] 32.7 g/dL (28.4-34.8) [facility] Work Phone: Comment on above: Note: Responsible Ob sql server dba developer: XNT AUTOFILE ([id number]) Performing Lab: see note [facility] Work Phone: Comment on above: Note: [facility] [address] [place] [address] Platelet mean volume (Bld) [Entitic vol] 10.2 fL (8.1-13.5) [facility] Work Phone: Comment on above: Note: Responsible Ob sql server dba developer: XNT AUTOFILE ([id number]) Reported Physicians See Note [facility] Work Phone: Comment on above: Note: Reported Physi cians:Ordering: Laura Ramireztending: Eloy RamirezaReferring: Laura Ramirez Segmented neutrophils/100 WBC (Bld) 58 % (36-65) [facility] Work Phone: Comment on above: Note: Responsible Ob sql server dba developer: XNT AUTOFILE (0941) Staging: See Note [facility] Work Phone: Comment on above: Note: Stage 1: Some kidney damage normal GFRStage 2: Mild kidney damage GFR 60-89Stage 3: Moderate kidney damage GFR 30-59Stage 4: Severe kidney damage GFR 15-29Stage 5: Severe kidney damage GFR <15ESRD - chronic treatment by dialysis or transplantResponsible Observer: JOSIE MCCRACKEN (1831) Thyroid Stim. Horm. 1.27 mIU/L (0.30-5.00) [facility] Work Phone: Comment on above: Note: Responsible Ob sql server dba developer: JOSIE MCCRACKEN (1831) WBC Morphology NOT REPORTED [facility] Work Phone: TSH w/reflex to FT4on 2018 TSH Qn 1.27 m[IU]/L Normal 0.30-5.00 [facility] Comment on above: Performed By: #### C DP, CPBILC, LIPR, TSHX #### [facility] [address] [place] [address] Icer Hand: Wang Day MD Vital Signs Date Time Vital Sign Value Performing Clinician Facility 07-03-2020 14:59-0500 BMI (Body Mass Index) 36.4 kg/m2 [facility] Work Phone: 07-03-2020 14:59-0500 Body Temperature 96.5 [degF] [facility] Work Phone: 07-03-2020 14:59-0500 Body weight 99.34 kg [facility] Work Phone: 07-03-2020 14:59-0500 BP Diastolic 72 mm[Hg] [facility] Work Phone: 07-03-2020 14:59-0500 BP Systolic 122 mm[Hg] [facility] Work Phone: 07-03-2020 14:59-0500 BSA (Body Surface Area) 2.06 m2 [facility] Work Phone: 07-03-2020 14:59-0500 Height 165.1 cm [facility] Work Phone: 07-03-2020 14:59-0500 Pulse (Heart Rate) 91 /min [facility] Work Phone: 07-03-2020 14:59-0500 Pulse Oximetry 98 % [facility] Work Phone: 07-03-2020 14:59-0500 Respiratory Rate 18 /min [facility] Work Phone: 06-27-2020 16:08-0500 BMI (Body Mass Index) 33.3 kg/m2 [facility] Work Phone: 06-27-2020 16:08-0500 Body weight 90.72 kg [facility] Work Phone: 06-27-2020 16:08-0500 BSA (Body Surface Area) 1.98 m2 [facility] Work Phone: 06-27-2020 16:08-0500 Height 165.1 cm [facility] Work Phone: 04-30-2020 17:49-0500 BMI (Body Mass Index) 34.3 kg/m2 [facility] Work Phone: 04-30-2020 17:49-0500 Body weight 90.72 kg [facility] Work Phone: 04-30-2020 17:49-0500 BSA (Body Surface Area) 1.96 m2 [facility] Work Phone: 04-30-2020 17:49-0500 Height 162.56 cm [facility] Work Phone: 11-16-2019 10:07-0400 BMI (Body Mass Index) 34.3 kg/m2 [facility] Work Phone: Comment on above: per patient report 11-16-2019 10:07-0400 Body weight 90.72 kg [facility] Work Phone: Comment on above: per patient report 11-16-2019 10:07-0400 BSA (Body Surface Area) 1.96 m2 [facility] Work Phone: Comment on above: per patient report 11-16-2019 10:07-0400 Height 162.56 cm [facility] Work Phone: Comment on above: per patient report 09-24-2019 13:33-0400 BMI (Body Mass Index) 33.7 kg/m2 [facility] Work Phone: Comment on above: per pt report 09-24-2019 13:33-0400 Body weight 86.18 kg [facility] Work Phone: Comment on above: per pt report 09-24-2019 13:33-0400 BSA (Body Surface Area) 1.89 m2 [facility] Work Phone: Comment on above: per pt report 09-24-2019 13:33-0400 Height 160.02 cm [facility] Work Phone: Comment on above: per pt report 04-25-2019 11:12-0500 BMI (Body Mass Index) 32.3 kg/m2 Laura Sean [facility] Work Phone: 04-25-2019 11:12-0500 Body Temperature 97.6 [degF] [facility] Work [facility]: 04-25-2019 11:12-0500 Body weight 88.17 kg [facility] Work Phone: 04-25-2019 11:12-0500 BP Diastolic 82 mm[Hg] [facility] Work Phone: 04-25-2019 11:12-0500 BP Systolic 128 mm[Hg] [facility] Work Phone: 04-25-2019 11:12-0500 BSA (Body Surface Area) 1.95 m2 [facility] Work Phone: 04-25-2019 11:12-0500 Flow Rate 0 L/min [facility] Work Phone: 04-25-2019 11:12-0500 Height 165.1 cm [facility] Work Phone: 04-25-2019 11:12-0500 Inhaled Oxygen Concentration 21 % [facility] Work Phone: 04-25-2019 11:12-0500 Pulse (Heart Rate) 75 /min Laura Paradis [facility] Work Phone: 04-25-2019 11:12-0500 Pulse Oximetry 99 % [facility] Work Phone: 04-25-2019 11:12-0500 Respiratory Rate 18 /min [facility] Work Phone: 09-14-2018 11:34-0400 BMI (Body Mass Index) 32.8 kg/m2 [facility] 09-14-2018 11:34-0400 Body Temperature 99.1 [degF] [facility] Work Phone: 09-14-2018 11:34-0400 Body weight 89.36 kg [facility] Work Phone: 09-14-2018 11:34-0400 BP Diastolic 72 mm[Hg] [facility] Work Phone: 09-14-2018 11:34-0400 BP Systolic 134 mm[Hg] [facility] Work Phone: 09-14-2018 11:34-0400 BSA (Body Surface Area) 1.97 m2 [facility] Work Phone: 09-14-2018 11:34-0400 Flow Rate 0 L/min [facility] Work Phone: 09-14-2018 11:34-0400 Height 165.1 cm [facility] Work Phone: 09-14-2018 11:34-0400 Inhaled Oxygen Concentration 21 % [facility] Work Phone: 09-14-2018 11:34-0400 Pulse (Heart Rate) 80 /min [facility] Work Phone: 09-14-2018 11:34-0400 Pulse Oximetry 98 % [facility] Work Phone: 09-14-2018 11:34-0400 Respiratory Rate 20 /min [facility] Work Phone: Encounters Encounter Date Encounter Type Care Provider Facility Start: 05-19-2023 End: 05-19-2023 ambulatory SHAIKH JONO Not Available Start: 01-31-2023 End: 02-01-2023 ambulatory Calin ESTEVEZ Facility:[facility] Start: 04-28-2022 End: 04-28-2022 ambulatory PAL ANDERSON Facility:[facility] Start: 02-17-2022 End: 02-18-[address] FABIANA CAPONE Facility:[facility] Start: 11-17-2021 End: 11-18-2021 ambulatory SHAIKH Sobeida VANGRADHA Facility:[facility] Start: 10-14-2021 End: 10-14-2021 ambulatory PAL ANDERSON Facility:[facility] Start: 10-13-2021 End: 10-13-2021 ambulatory Sobeida JONO Facility:[facility] Start: 09-26-2020 End: 01-19-2022 ambulatory None Provider Facility:[facility] Start: 07-03-2020 End: 07-03-2020 Established patient Laverne Garrett Work Phone: [facility] Work Phone: Start: 07-03-2020 End: 07-03-2020 Established patient Suzi Khanna Work Phone: [facility] Work Phone: Start: 06-27-2020 End: 06-27-2020 Telemedicine consultation with patient Suzi Khanna Work Phone: [facility] Work Phone: Start: 04-30-2020 End: 04-30-2020 General Jo Velazquez Work Phone: [facility] Work Phone: Start: 04-30-2020 End: 04-30-2020 Telemedicine consultation with patient Thalia Block Work Phone: [facility] Work Phone: Start: 11-16-2019 End: 11-16-2019 Telemedicine consultation with patient Suzi Khanna Work Phone: [facility] Work Phone: Start: 09-24-2019 End: 09-24-2019 Telemedicine consultation with patient Suzi Khanna Work Phone: [facility] Work Phone: Start: 05-24-2019 End: 05-24-2019 Patient encounter procedure Carlitos Summers Work Phone: [facility] Work Phone: Start: 05-18-2019 End: 05-18-2019 Patient encounter procedure Maulik Geiger Work Phone: [facility] Work Phone: Start: 04-25-2019 End: 04-28-2019 Patient encounter procedure LAURA Nichols [facility] Start: 04-25-2019 End: 04-25-2019 Established patient Princess Blackmon Work Phone: [facility] Work Phone: Start: 04-25-2019 End: 04-25-2019 Patient encounter procedure Maulik Geiger Work Phone: [facility] Work Phone: Start: 04-18-2019 End: 04-18-2019 Patient encounter procedure Laura Ramirez Work Phone: [facility] Work Phone: Start: 04-17-2019 Comprehensve oral evaluation Carlitos Summers Work Phone: [facility] Work Phone: Start: 04-17-2019 End: 04-17-2019 Emergency department patient visit Carlitos Summers Work Phone: [facility] Work Phone: Start: 12-17-2018 End: 12-18-2018 Emergency department patient visit LAURA A [facility] Start: 12-12-2018 End: 12-13-2018 Patient encounter procedure KAYLA FREEMAN [facility] Start: 12-08-2018 End: 12-09-2018 Patient encounter procedure [facility] Start: 12-05-2018 End: 12-06-2018 Patient encounter procedure [facility] Start: 10-23-2018 End: 10-24-2018 Patient encounter procedure LAURA Nichols [facility] Start: 09-14-2018 End: 09-14-2018 New patient Laura Ramirez Work Phone: [facility] Work Phone: Procedures Date Procedure Procedure Detail [...] 04-25-2019 Pt tobacco screen rcvd tlk Laura Paradis Work Phone: Start: 04-17-2019 Panoramic image Carlitos Maysjonathon Work Phone: Start: 12-17-2018 Blood count complete auto&auto difrntl wbc RHETT AHMAD Start: 12-17-2018 C-reactive protein RHETT STEINBERGMAD Start: 12-17-2018 Urnls dip stick/tabl et reagent auto microscopy ALI AHMAD Start: 12-13-2018 AMB REFERRAL TO CARD IAC REHAB KAYLA FREEMAN Start: 12-13-2018 DISCHARGE PATIENT KAYLA FREEMAN Start: 12-13-2018 DIET CARDIAC KAYLA CUNNINGHAM UR Start: 12-13-2018 CAR SUPPLIER REPORT KAYLA SHAH Start: 12-13-2018 INITIATE OXYGEN [...] VERIFY INFORMED CONSENT KAYLA FREEMAN Start: 12-12-2018 CAR SUPPLIER REPORT KAYLA SHAH Start: 12-08-2018 Basic metabolic [...] Start: 09-14-2018 Ligation of fallopian tube Laura Paradis Start: 09-14-2018 past medical/surgica l history [use for free text] Laura Sean Start: 09-14-2018 Surgical procedure Cynt paulapilo Ramirez Plan of Treatment Date Care Activity Detail Author Start: 06-30-2020 Medical Establ ished Patient [facility] Work Phone: Start: 05-30-2020 _SARS-CoV-2 COVID19 ariel t [facility] Work Phone: Start: 05-15-2020 Telemedicine E stablisted Patient [facility] Work Phone: Start: 11-17-2019 Stool Kit Sharon Ross se [facility] Work Phone: Start: 05-29-2019 Medical Establ ished Patient [facility] Work Phone: Start: 05-25-2019 XR Hand 3 Views ([id number]) [facility] Work Phone: Start: 05-10-2019 Dental Miscellaneous Ti [facility] Work Phone: Start: 04-25-2019 [facility] Work Phone: Comment on above: Note: Please make a referral to:Deformed thick great toe nail, nail fungus Start: 09-14-2018 Cardiology [facility] Work Phone: Comment on above: Note: Please make a referral to: Payers Date Payer Category Payer Unknown [id number] 1965 Unknown [id number] 2.16.8 [id number] 1965 Unknown [id number] 2.16.8 [id number] 1964 Unknown [id number] 2.16.8 [id number] 1964 Unknown [id number] 2.16.8 [id number] 1964 Unknown [id number] 2.16.8 [id number] 1964 Unknown [id number] 2.16.8 [id number] 1964 Unknown [id number] 2.16.8 [id number] 1964 Unknown [id number] 2.16.8 [id number] 1964 Unknown [id number] 2.16.84 [id number] 1964 Unknown [id number] 2.16.84 [id number] 1964 Unknown [id number] 2.16.84 [id number] 1964 Unknown [id number] 2.16.84 [id number] 1964 Unknown [id number] 2.16.84 [id number] 1964 Unknown [id number] 2.16.84 [id number] 1960 Self-pay 1960 Self-pay [id number] 1960 Unknown [id number] Self-pay [id number] Social History Date Type Detail Facility Assertion Gender identity finding (finding) [facility] Work Phone: Assertion Finding of sexua l orientation (finding) [facility] Work Phone: Assertion Tobacco user (finding) [facility] Work Phone: Tobacco smoking status Unknown if ever smoked [facility] Work Phone: Assertion Exposure to poll ution (event) [facility] Work Phone: Assertion [facility] Work Phone: Assertion Alcohol consumpt ion screening (procedure) [facility] Work Phone: Assertion Emotional stress (finding) [facility] Work Phone: Assertion Employment findi ng (finding) [facility] Work Phone: NEGATED: Highlighted row Assertion Current drinker of alcohol (finding) [facility] Work Phone: NEGATED: Highlighted row Assertion Finding relating to drug misuse behavior (finding) [facility] Work Phone: NEGATED: Highlighted row Assertion Exposure to pollution (event) [facility] Work Phone: NEGATED: Highlighted row Assertion Illicit drug use (finding) [facility] Work Phone: NEGATED: Highlighted row Assertion Misuse of prescription only drugs (finding) [facility] Work Phone: NEGATED: Highlighted row Assertion [facility] Work Phone: Mental Status Date Assessment Result Facility Cognitive function Cognitive fun ctioning was normal Cognitive function finding (finding) [facility] Work Phone: Clinical Note 04-28-2022 Note [...] acute bone abnormality. Electronically authenticated by: JUNITO OCHOA Date: 2022-04-28 12:58 [facility] Summary Purpose Family History No Family History [...] disorder NOS Medical New Patient with Laura Paradis 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 09/14/2018 Benign essential hypertension Medical Ne w Patient with Laura Paradis 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 09/14/2018 Coronary artery disease Medical [place] with Laura Sean 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 09/14/2018 Diabetes Risk Test Score was five score 09/14/2018 Medical New Patient with Laura Paradis 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 09/14/2018 Hyperlipidemia Medical New Patient with Laura Paradis 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 09/14/2018 Obesity due to excess calories Medical N ew Patient with Laura Paradis 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 09/14/2018 Routine history and physical Medical New Patient with Laura Paradis 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 09/14/2018 Z68.32 - Body mass index (BM I) 32.0-32.9, adult Medical New Patient with Laura Paradis 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 09/14/2018 Findings Encounter Date Recurrent major depression i n full remission BH Established Patient with Princess BENSON 04/25/2019 Arthralgia of right hand Medical Establi shed Patient with Laura Sean 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 04/25/2019 Depression Medical Established Pati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 04/25/2019 Fagerstrom Score was 0 Medical Establish ed Pati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 04/25/2019 Obesity due to excess calories Medical E stablished Patient with Laura Paradis 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 04/25/2019 Onychomycosis of the right 1st toenail M edical Established Patient with Laura Paradis 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 04/25/2019 PHQ-9: total score was three 04/25/2019 Medical Established Patient with Laura Sean 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 04/25/2019 Z68.31 - Body mass index (BM I) 31.0-31.9 adult Medical Established Patient with Laura Sean 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 04/25/2019 Anxiety disorder NOS Medical New Patient with Laura Paradis 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 09/14/2018 Benign essential hypertension Medical Ne w Patient with Laura Paradis 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 09/14/2018 Coronary artery disease Medical New [place] 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 09/14/2018 Diabetes Risk Test Score was five score 09/14/2018 Medical New Patient with Laura Paradis 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 09/14/2018 Hyperlipidemia Medical New Patient with Laura Paradis 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 09/14/2018 Obesity due to excess calories Medical N ew Patient with Laura Paradis 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 09/14/2018 Routine history and physical Medical New Pati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 09/14/2018 Z68.32 - Body mass index (BM I) 32.0-32.9, adult Medical New Patient with Laura Sean 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 09/14/2018 Findings Encounter Date Upper respiratory infection Telemedicine with Suzi Khanna [facility] 09/24/2019 Recurrent major depression i n full remission BH Established Patient with Princess Lorri [facility] 04/25/2019 Arthralgia of right hand Medical Establi shed Patient with Laura Sean 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 04/25/2019 Depression Medical Established Patient with Laura Sean 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 04/25/2019 Fagerstrom Score was 0 Medical Establish ed Patient with Laura Sean 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 04/25/2019 Obesity due to excess calories Medical E stablished Patient with Laura Sean 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 04/25/2019 Onychomycosis of the right 1st toenail M edical Established Patient with Laura Paradis 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 04/25/2019 PHQ-9: total score was three 04/25/2019 Medical Established Patient with Laura Sean 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 04/25/2019 Z68.31 - Body mass index (BM I) 31.0-31.9 adult Medical Established Patient with Laura Sean 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 04/25/2019 Anxiety disorder NOS Medical New Patient with Laura Paradis 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 09/14/2018 Benign essential hypertension Medical Ne w Patient with Laura Sean 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 09/14/2018 Coronary artery disease Medical New [place] 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 09/14/2018 Diabetes Risk Test Score was five score 09/14/2018 Medical New Patient with Laura Paradis 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 09/14/2018 Hyperlipidemia Medical New Patient with Laura Paradis 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 09/14/2018 Obesity due to excess calories Medical N ew Patient with Laura Paradis 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 09/14/2018 Routine history and physical Medical New Patient with Laura Ramirez 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 09/14/2018 Z68.32 - Body mass index (BM I) 32.0-32.9, adult Medical New Patient with Laura Ramirez 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 09/14/2018 Findings Encounter Date Body mass index Telemedicine with An rivka Khanna [facility] 11/16/2019 Depression Telemedicine with An rivka Khanna [facility] 11/16/2019 Hypertension Telemedicine with An rivka Khanna [facility] 11/16/2019 Obesity due to excess calories Telemedic ine with Suzi Khanna [facility] 11/16/2019 Upper respiratory infection Telemedicine with Suzi Khanna [facility] 09/24/2019 Recurrent major depression i n full remission BH Established Patient with Princess BENSON 04/25/2019 Arthralgia of right hand Medical Establi shed Patient with Laura Sean 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 04/25/2019 Depression Medical Established Patient with Laura Sean 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 04/25/2019 Fagerstrom Score was 0 Medical Establish ed Patient with Laura Sean 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 04/25/2019 Obesity due to excess calories Medical E stablished Patient with Laura Paradis 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 04/25/2019 Onychomycosis of the right 1st toenail M edical Established Patient with Laura Sean 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 04/25/2019 PHQ-9: total score was three 04/25/2019 Medical Established Patient with Laura Sean 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 04/25/2019 Z68.31 - Body mass index (BM I) 31.0-31.9 adult Medical Established Patient with Laura Ramirez 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 04/25/2019 Anxiety disorder NOS Medical New Patient with Laura Ramirez 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 09/14/2018 Benign essential hypertension Medical Ne w Patient with Laura Sean 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 09/14/2018 Coronary artery disease Medical New [place] ent with Laura Ramirez 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 09/14/2018 Diabetes Risk Test Score was five score 09/14/2018 Medical New Patient with Laura Ramirez 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 09/14/2018 Hyperlipidemia Medical New Pati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 09/14/2018 Obesity due to excess calories Medical N ew Patient with Laura Paradis 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 09/14/2018 Routine history and physical Medical New Patient with Laura Ramirez 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 09/14/2018 Z68.32 - Body mass index (BM I) 32.0-32.9, adult Medical New Patient with Laura Ramirez 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 09/14/2018 Findings Encounter Date Adjustment disorder with anxiety Tele behavioral Health with Jo Velazquez [facility] 04/30/2020 Mild recurrent major depression Teleb ehavioral Health with Jo Velazquez [facility] 04/30/2020 Body mass index Telemedicine Establi sted Patient with Thalia Block [facility] 04/30/2020 Exposure to a viral disease Telemedicine Establisted Patient with Thalia Block [facility] 04/30/2020 Obesity due to excess calories Telemedic ine Establisted Patient with Thalia Block 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 04/30/2020 Body mass index Telemedicine with Suzi dalton [facility] 11/16/2019 Depression Telemedicine with Suzi dalton [facility] 11/16/2019 Hypertension Telemedicine with Suzi dalton [facility] 11/16/2019 Obesity due to excess calories Telemedicine with Suzi Khanna [facility] 11/16/2019 Upper respiratory infection Telemedicine with Mary Khanna [facility] 09/24/2019 Recurrent major depression i n full remission BH Established Patient with Princess [facility] 04/25/2019 Arthralgia of right hand Medical Establi shed Patient with Laura Paradis 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 04/25/2019 Depression Medical Established Pati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 04/25/2019 Fagerstrom Score was 0 Medical Establish ed Patient with Lauramilton Ramirez 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 04/25/2019 Obesity due to excess calories Medical E stablished Patient with Laura Paradis 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 04/25/2019 Onychomycosis of the right 1 st toenail Medical Established Patient with Laura Ramirez 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 04/25/2019 PHQ-9: total score was three 04/25/2019 Medical Established Patient with Laura Ramirez 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 04/25/2019 Z68.31 - Body mass index (BM I) 31.0-31.9 adult Medical Established Patient with Laura Ramirez 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 04/25/2019 Anxiety disorder NOS Medical New Patient with Laura Ramirez 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 09/14/2018 Benign essential hypertension Medical Ne w Patient with Laura Ramirez 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 09/14/2018 Coronary artery disease Medical New [place] ent with Laura Ramirez 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 09/14/2018 Diabetes Risk Test Score was five score 09/14/2018 Medical New Patient with Laura Ramirez 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 09/14/2018 Hyperlipidemia Medical New Patient with Laura Ramirez 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 09/14/2018 Obesity due to excess calories Medical N ew Patient with Laura Ramirez 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 09/14/2018 Routine history and physical Medical New Patient with Laura Ramirez 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 09/14/2018 Z68.32 - Body mass index (BM I) 32.0-32.9, adult Medical New Patient with Laura Ramirez 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 09/14/2018 Findings Encounter Date Body mass index Telemedicine Establi sted Patient with Suzi Khanna 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 06/27/2020 Hypertension Telemedicine Establi sted Patient with Suzi Khanna 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 06/27/2020 Adjustment disorder with anxiety Tele behavioral Health with Jo Velazquez [facility] 04/30/2020 Mild recurrent major depression Teleb ehavioral Health with Jo Velazquez [facility] 04/30/2020 Body mass index Telemedicine Establi sted Patient with Thalia Umair 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 04/30/2020 Exposure to a viral disease Telemedicine Establisted Patient with Thalia Umair 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 04/30/2020 Obesity due to excess calories Telemedic ine Establisted Patient with Thalia Umair 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 04/30/2020 Body mass index Telemedicine with Suzi dalton 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 11/16/2019 Depression Telemedicine with Suzi dalton 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 11/16/2019 Hypertension Telemedicine with Suzi Mijares e 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 11/16/2019 Obesity due to excess calories Telemedicine with Suzi Khanna 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 11/16/2019 Upper respiratory infection Telemedicine with Mary Khanna 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 09/24/2019 Recurrent major depression i n full remission BH Established Patient with Princess [facility] 04/25/2019 Arthralgia of right hand Medical Establi shed Patient with Laura Sean 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 04/25/2019 Depression Medical Established Pati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 04/25/2019 Fagerstrom Score was 0 Medical Establish ed Patient with Laura Ramirez 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 04/25/2019 Obesity due to excess calories Medical E stablished Patient with Lauar Sean 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 04/25/2019 Onychomycosis of the right 1 st toenail Medical Established Pati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 04/25/2019 PHQ-9: total score was three 04/25/2019 Medical Established Pati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 04/25/2019 Z68.31 - Body mass index (BM I) 31.0-31.9 adult Medical Established Pati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 04/25/2019 Anxiety disorder NOS Medical New Pati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 09/14/2018 Benign essential hypertension Medical Ne w Patient with Laura Sean 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 09/14/2018 Coronary artery disease Medical New [place] ent with Laura Ramirez 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 09/14/2018 Diabetes Risk Test Score was five score 09/14/2018 Medical New Pati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 09/14/2018 Hyperlipidemia Medical New Pati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 09/14/2018 Obesity due to excess calories Medical N ew Patient with Laura Sean 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 09/14/2018 Routine history and physical Medical New Patient with Laura Ramirez 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 09/14/2018 Z68.32 - Body mass index (BM I) 32.0-32.9, adult Medical New Patient with Laura Ramirez 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 09/14/2018 Findings Encounter Date Mild recurrent major depress ion with anxiety BH Established Patient with Laverne Garrett [facility] 07/03/2020 Diabetes Risk Test Score was five score 07/03/2020 Medical Established Patient with Suzi Khanna 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 07/03/2020 Hypertension Medical Established Patient with Suzi Khanna 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 07/03/2020 Obesity due to excess calories Medical E stablished Patient with Suzi Khanna 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 07/03/2020 Z68.36 - Body mass index [BM I] 36.0-36.9, adult Medical Established Patient with Suzi Khanna 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 07/03/2020 Body mass index Telemedicine Establi sted Patient with Suzi Khanna 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 06/27/2020 Hypertension Telemedicine Establi sted Patient with Suzipilo Khanna 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 06/27/2020 Adjustment disorder with anxiety BH Tele behavioral Health with Jo HICKS 04/30/2020 Mild recurrent major depression BH Teleb ehavioral Health with Jowesley Velazquez [facility] 04/30/2020 Body mass index Telemedicine Establi sted Patient with Thalia Block 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 04/30/2020 Exposure to a viral disease Telemedicine Establisted Patient with Thalia Umair 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 04/30/2020 Obesity due to excess calories Telemedic ine Establisted Patient with Thalia Umair 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 04/30/2020 Body mass index Telemedicine with Suzi Maryana e 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 11/16/2019 Depression Telemedicine with Suzi Mijares e 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 11/16/2019 Hypertension Telemedicine with Suzi Mijares e 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 11/16/2019 Obesity due to excess calories Telemedicine with Suzi Jey 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 11/16/2019 Upper respiratory infection Telemedicine with Mary Khanna 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 09/24/2019 Recurrent major depression i n full remission BH Established Patient with Princess BENSON 04/25/2019 Arthralgia of right hand Medical Establi shed Patient with Laura Paradis 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 04/25/2019 Depression Medical Established Patient with Laura Sean 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 04/25/2019 Fagerstrom Score was 0 Medical Establish ed Patient with Laura Sean 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 04/25/2019 Obesity due to excess calories Medical E stablished Patient with Laura Paradis 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 04/25/2019 Onychomycosis of the right 1 st toenail Medical Established Patient with Laura Paradis 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 04/25/2019 PHQ-9: total score was three 04/25/2019 Medical Established Patient with Laura Paradis 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 04/25/2019 Z68.31 - Body mass index (BM I) 31.0-31.9 adult Medical Established Patient with Laura Sean 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 04/25/2019 Anxiety disorder NOS Medical New Patient with Laura Paradis 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 09/14/2018 Benign essential hypertension Medical Ne w Patient with Laura Paradis 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 09/14/2018 Coronary artery disease Medical New [place] ent with Laura Sean 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 09/14/2018 Diabetes Risk Test Score was five score 09/14/2018 Medical New Patient with Laura Paradis 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 09/14/2018 Hyperlipidemia Medical New Patient with Laura Sean 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 09/14/2018 Obesity due to excess calories Medical N ew Patient with Laura Sean 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 09/14/2018 Routine history and physical Medical New Patient with Laura Ramirez 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 09/14/2018 Z68.32 - Body mass index (BM I) 32.0-32.9, adult Medical New Patient with Laura Ramirez 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 09/14/2018 Findings Encounter Date Recurrent major depression i n full remission BH Established Patient with Princess PUENTE-S 04/25/2019 Depression Medical Established Patient with Laura Ramirez CNP 04/25/2019 Fagerstrom Score was 0 Medical Establish ed Patient with Laura Ramirez 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 04/25/2019 Obesity due to excess calories Medical E stablished Patient with Laura Sean 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 04/25/2019 PHQ-9: total score was three 04/25/2019 Medical Established Patient with Laura Ramirez 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 04/25/2019 Z68.31 - Body mass index (BM I) 31.0-31.9 adult Medical Established Patient with Laura Ramirez CNP 04/25/2019 Anxiety disorder NOS Medical New Patient with Laura Sean 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 09/14/2018 Benign essential hypertension Medical Ne w Patient with Laura Sean 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 09/14/2018 Coronary artery disease Medical New [place] 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 09/14/2018 Diabetes Risk Test Score was five score 09/14/2018 Medical New Patient with Laura Sean 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 09/14/2018 Hyperlipidemia Medical New Patient with Laura Ramirez 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 09/14/2018 Obesity due to excess calories Medical N ew Patient with Laura Ramirez 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 09/14/2018 Routine history and physical Medical New Patient with Laura Ramirez 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 09/14/2018 Z68.32 - Body mass index (BM I) 32.0-32.9, adult Medical New Patient with Laura Sean 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 09/14/2018 Instructions Instructions not supported for this [...] section and content) DATE CREATED AUTHOR 12/20/2018 [facility] DATE CREATED AUTHOR AUTHOR'S ORGANIZ ATION 04/28/2019 [facility] DATE CREATED AUTHOR AUTHOR'S ORGANIZ ATION 01/20/2022 [facility] DATE CREATED AUTHOR AUTHOR'S ORGANIZ ATION 05/01/2022 [facility] DATE CREATED AUTHOR AUTHOR'S ORGANIZ ATION [facility]/2023 [facility] DATE CREATED AUTHOR AUTHOR'S DAVONTE ATCRIS 05/21/2023 [facility] EPIC Evaluations & Outcomes [...] BE BASED ON THE PRIMARY CLINICAL RECORDS. [facility]. provides no warranty or guarantee of the accuracy or completeness of information in this document.
== END 2023-06-29 08:50 | disposition home or self-care (01) ==
LOC: MAMMO 08:49
PROVIDERS: PCP Internal Medicine; Visit Provider Internal Medicine
DX: Z12.31 Encounter for screening mammogram for malignant neoplasm of breast (principal)
CPT/HCPCS: 77063; 77067

== ENCOUNTER 2023-07-08 06:29 | Outpatient (OUT) | payer OTHER, SELFPAY ==
--- OUTSIDE RECORDS SUMMARY | 2023-07-08 06:33 | XMS_ITS | CCD ---
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 Role Phone PETE, AMGEOFFR Referring Unavailable SEAN, LAURA A Primary Care Unavailable KAYLA FREEMAN Admitting Unavailable KAYLA FREEMAN Attending Unavailable Penfield, Laura Primary Care Provider RHETT NAQVI Referring Unavailable SEAN, LAURA A [...] Care Unavailable Suzi Khanna Primary Care Provider [phone] Suzi Khanna Primary Care Provider Provider, None Primary Care Unavailable Len Garcia Attending Unavailable Len Garcia Admitting Unavailable PAL ANDERSON Admitting Unavailable GABRIELA, DR JUNITO Pisano Consulting Unavailable JONO, MCCAULEY H Primary Care Unavailable PAL ANDERSON Attending Unavailable PAL ANDERSON Consulting Unavailable MARKER, DR JUNG Attending Unavailable MARKER, DR JNUG Admitting Unavailable RAFAT MCMANUS Consulting Unavailable FAWRADHA, [...] Allergy to substance 04-30-2020 [facility] Work Phone: Medications Current Medications Medication Drug [...] Coronary arteriosclerosis; 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: [Atherosclerotic heart disease of [place] coronary artery without angina pectoris] Onset: 09-14-2018 [...] 04-25-2019 Chronic Other aftercare (1 source) 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; 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: [OTH MEDICAL ARTIST CURRENT DRUG THERAPY] Onset: 04-30-2022 Episodic Other aftercare (1 source) 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; 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: [MEDICAL ARTIST CURRENT USE OF ASPIRIN] Onset: 04-30-2022 Episodic [...] Interpretation Reference Range Facility Registrationon 02-02-2023 Registration [id number]:1 [facility] 01-31-2023 Consent [id number]:[address] [facility] [address] ABD/PELVIS WO CONon 02-18 CT [...] LEN DONATO Date: 2022-02-17 23:02 Normal [facility] CBC AUTO DIFFon 02-17-2022 BASO # 0.1 103/ul Normal 0.0-0.1 [facility] Comment on above: Performed By: #### C BC #### [facility] [address] [address] [address] Abby Sanchez Basophils/100 WBC (Bld) 0.7 % Normal 0.2-2.0 [facility] Comment on above: Performed By: #### C BC #### [facility] [address] [place] [address] Dr. Abby Sanchez EO # 0.1 103/ul Normal 0.0-0.7 [facility] Comment on above: Performed By: #### C BC #### [facility] [address] [place] [address] Dr. Abby Sanchez Eosinophils/100 WBC (Bld) 1.0 % Normal 0.9-7.0 [facility] Comment on above: Performed By: #### C BC #### [facility] [address] [place] [address] Dr. Abby Sanchez Erythrocyte distribution width (RBC) [Ratio] 13.7 % Normal 11.0-15.0 [facility] Comment on above: Performed By: #### C BC #### [facility] [address] [place] [address] Dr. Abby Sanchez Hematocrit (Bld) [Volume fraction] 44.5 % Normal 36.0-48.0 [facility] Comment on above: Performed By: #### C BC #### [facility] [address] [place] [address] Dr. Abby Sanchez Hemoglobin (Bld) [Mass/Vol] 14.5 g/dL Normal 12.0-16.0 [facility] Comment on above: Performed By: #### C BC #### [facility] [address] [place] [address] Dr. Abby Sanchez IG # 0.03 10e3/ul Normal 0.00-0.03 [facility] Comment on above: Performed By: #### C BC #### [facility] [address] [place] [address] Dr. Abby Sanchez IG % 0.2 % Normal 0.0-0.5 [facility] Comment on above: Performed By: #### C BC #### [facility] [address] [place] [address] Dr. Abby Sanchez LYMPH # 2.1 103/ul Normal 1.2-3.8 [facility] Comment on above: Performed By: #### C BC #### [facility] [address] [place] [address] Dr. Abby Sanchez Lymphocytes/100 WBC (Bld) 16.2 % Critically low 20.5-60.0 [facility] Comment on above: Performed By: #### C BC #### [facility] [address] [place] [address] Dr. Abby Sanchez MANUAL DIFF REQ NO Normal [facility] Comment on above: Performed By: #### C BC #### [facility] [address] [place] [address] Dr. Abby Sanchez MCH (RBC) [Entitic mass] 30.6 pg Normal 26.7-34.0 [facility] Comment on above: Performed By: #### C BC #### [facility] [address] [place] [address] Dr. Abby Sanchez MCHC (RBC) [Mass/Vol] 32.6 g/dL Normal 29.9-35.2 [facility] Comment on above: Performed By: #### C BC #### [facility] [address] [place] [address] Dr. Abby Sanchez MCV (RBC) [Entitic vol] 93.9 fL Normal 81.0-99.0 [facility] Comment on above: Performed By: #### C BC #### [facility] [address] [place] [address] Dr. Abby Sanchez MONO # 0.6 103/ul Normal 0.3-0.8 [facility] Comment on above: Performed By: #### C BC #### [facility] [address] [place] [address] Dr. Abby Sanchez Monocytes/100 WBC (Bld) 5.1 % Normal 1.7-12.0 [facility] Comment on above: Performed By: #### C BC #### [facility] [address] [place] [address] Dr. Abby Sanchez NEUT # 9.7 103/ul Critically high 1.4-6.5 [facility] Comment on above: Performed By: #### C BC #### [facility] [address] [address] [address] Abby Sanchez Neutrophils/100 WBC (Bld) 76.8 % Critically high 43.0-75.0 [facility] Comment on above: Performed By: #### C BC #### [facility] [address] [place] [address] Dr. Abby Sanchez Platelet mean volume (Bld) [Entitic vol] 9.6 fL Normal 9.5-13.5 [facility] Comment on above: Performed By: #### C BC #### [facility] [address] [place] [address] Dr. Abby Sanchez PLT 324 103/ul Normal 150-450 [facility] Comment on above: Performed By: #### C BC #### [facility] [address] [place] [address] Dr. Abby Sanchez RBC 4.74 106/ul Normal 4.20-5.40 [facility] Comment on above: Performed By: #### C BC #### [facility] [address] [place] [address] Dr. Abby Sanchez WBC 12.7 103/ul Critically high 4.0-11.0 [facility] Comment on above: Performed By: #### C BC #### [facility] [address] [place] [address] Dr. Abby Sanchez CULTURE URINEon 02-17-2022 CULTURE URINE Culture Observations : NO GROWTH. Normal [facility] Comment on above: Performed By: #### U RCX #### [facility] [address] [place] [address] Dr. Abby Sanchez ER URINE PROFILEon 2 Bilirubin Ql (U) Negative Normal NEGATIVE [facility] Comment on above: Performed By: #### BARRINGTON MOERO ####[facility] [address] [address]Dr. Abby Sanchez Clarity (U) SL CLOUDY Abnormal CLEAR [facility] Comment on above: Performed By: #### BEAR MOEICRO ####[facility] [address] [id number]. Abby Sanchez Color (U) LT. YELLOW Normal YELLOW [facility] Comment on above: Performed By: #### Mani SNOW UMICRO ####[facility] [address] [address]Dr. Abby Sanchez ERUAHD A micrscopic examina tion will be performed if indicated. Normal [facility] Comment on above: Performed By: #### Mani SNOW UMICRO ####[facility] [address] [place], [place] [address]Dr. Abby Sanchez Glucose Ql (U) Negative Normal NEGATIVE [facility] Comment on above: Performed By: #### Mani SONW UMICRO ####[facility] [address] [place], [place] [address]Dr. Abby Sanchez Hemoglobin Ql (U) LARGE Abnormal NEGATIVE [facility] Comment on above: Performed By: #### Mani SNOW UMICRO ####[facility] [address] [place], [place] [address]Dr. Abby Sanchez Ketones Ql (U) Negative Normal NEGATIVE [facility] Comment on above: Performed By: #### Mani SNOW UMICRO ####[facility] [address] [place], [place] [address]Dr. Abby Sanchez LEUKOCYTES TRACE Abnormal NEGATIVE [facility] Comment on above: Performed By: #### Mani SNOW UMICRO ####[facility] [address] [place], [place] [address]Dr. Abby Sanchez Nitrite Ql (U) Negative Normal NEGATIVE [facility] Comment on above: Performed By: #### Mani SNOW UMICRO ####[facility] [address] [place], [place] [address]Dr. Abby Sanchez pH (U) 7.0 [pH] Normal 5-9 [facility] Comment on above: Performed By: #### Mani SNOW UMICRO ####[facility] [address] [place], [place] [address]Dr. Abby Sanchez Protein (U) [Mass/Vol] 100 mg/dL Abnormal NEGATIVE/ TRACE [facility] Comment on above: Performed By: #### CATHY MOE ####[facility] [address] [address]Dr. Abby Sanchez SPEC GRAVITY 1.025 Normal 1.005-<=1.02 5 [facility] Comment on above: Performed By: #### CATHY MOE ####[facility] [address] [address]Dr. Abby Sanchez UR MICRO IND INDICATED Normal [facility] Comment on above: Performed By: #### CATHY MOE ####[facility] [address] [address]Dr. Abby Sanchez Urobilinogen Qn (U) 0.2 {[place]'U}/dL Normal 0.2 - 1. 0 [facility] Comment on above: Performed By: #### CATHY MOE ####[facility] [address] [place], [place] [address]Dr. Abby Sanchez PROF CHEM 8 (BAS METB)on Anion gap [Moles/Vol] 11.5 mmol/L Normal [facility] Comment on above: Performed By: #### B MP ####[facility] [address] [place], [place] [address]Dr. Abby Sanchez Calcium [Mass/Vol] 8.9 mg/dL Normal 8.5-10.1 [facility] Comment on above: Performed By: #### B MP ####[facility] [address] [place], [place] [address]Dr. Abby Sanchez Chloride [Moles/Vol] 103 mmol/L Normal 98-107 [facility] Comment on above: Performed By: #### B MP ####[facility] [address] [place], [place] [address]Dr. Abby Sanchez CO2 [Moles/Vol] 29.1 mmol/L Normal 21.0-32.0 [facility] Comment on above: Performed By: #### B MP ####[facility] [address] [place], [place] [address]Dr. Abby Sanchez Creatinine [Mass/Vol] 0.79 mg/dL Normal 0.55-1.02 [facility] Comment on above: Performed By: #### B MP ####[facility] [address] [address]Dr. Kirabrittney Daniel EGFR-AF [place] >60 Normal >=60 [facility] Comment on above: Performed By: #### B MP ####[facility] [address] [address]Dr. Kirabrittney Daniel EGFR-NON AF [place] >60 Normal >=60 [facility] Comment on above: Performed By: #### B MP ####[facility] [address] [address]Dr. Abby Sanchez Glucose [Mass/Vol] 112 mg/dL Critically high 74-106 [facility] Comment on above: Performed By: #### B MP ####[facility] [address] [address]Dr. Abby Sanchez Potassium [Moles/Vol] 4.6 mmol/L Normal 3.5-5.1 [facility] Comment on above: Performed By: #### B MP ####[facility] [address] [address]Dr. Abby Sanchez Sodium [Moles/Vol] 139 mmol/L Normal 136-145 [facility] Comment on above: Performed By: #### B MP ####[facility] [address] [address]Dr. Abby Sanchez Urea nitrogen [Mass/Vol] 12.0 mg/dL Normal 7.0-18.0 [facility] Comment on above: Performed By: #### B MP ####[facility] [address] [address]Dr. Abby Sanchez Urea nitrogen/Creatinine [Mass ratio] 15.2 mg/mg Normal [facility] Comment on above: Performed By: #### B MP ####[facility] [address] [address]Dr. Abby Sanchez PROTIMEon 02-17-2022 INR Coag (PPP) [Relative time] {INR} Normal [facility] Comment on above: Performed By: #### P T, PTT #### [facility] [address] [address] [address] Abby Sanchez INR GUIDELINES SEE BELOW Normal [facility] Comment on above: Result Comment: [place] RED INR: 2.0 - 3.0 CONDITIONS NOT LISTED BELOW 2.5 - 3.5 FOR PROSTHETIC HEART VALVE REPLACEMENT 2.5 - 3.5 RECURRENT THROMBOSIS Performed By: #### P T, PTT #### [facility] [address] [address] [address] Abby Sanchez PT Coag (PPP) [Time] 10.0 s Normal 9.0-11.6 [facility] Comment on above: Performed By: #### P T, PTT #### [facility] [address] [place] [address] Dr. Abby Sanchez PTTon 02-17-2022 aPTT Coag (Bld) [Time] 27.9 s Normal 22.3-36.2 [facility] Comment on above: Performed By: #### P T, PTT #### [facility] [address] [place] [address] Dr. Abby Sanchez URINE MICROSCOPIC ONLYon BACTERIA TRACE Abnormal NONE SEEN [facility] Comment on above: Performed By: #### BARRINGTON MOERO ####[facility] [address] [address]Dr. Abby Sanchez Bacteria identified Cx Nom (U) INDICATED Normal [facility] Comment on above: Performed By: #### BARRINGTON MOERO ####[facility] [address] [address]DrChandrakant Sanchez CAST NONE SEEN Normal NONE SEEN [facility] Comment on above: Performed By: #### BARRINGTON MOERO ####[facility] [address] [address]DrChandrakant Sanchez Crystals LM Nom (Urine sed) NONE SEEN Normal NONE SEEN [facility] Comment on above: Performed By: #### BARRINGTON MOERO ####[facility] [address] [place], [place] [address]Dr. Abby Sanchez Epithelial cells LM Ql (Urine sed) FEW Abnormal NONE SEEN /RARE [facility] Comment on above: Performed By: #### CATHY MOE ####[facility] [address] [place], [place] [address]Dr. Kirabrittney Daniel MUCOUS NONE SEEN Normal NONE SEEN [facility] Comment on above: Performed By: #### CATHY MOE ####[facility] [address] [place], [place] [address]Dr. Abby Sanchez RBC (U) [#/Vol] /uL Abnormal 0-2 [facility] Comment on above: Performed By: #### CATHY MOE ####[facility] [address] [place], [place] [address]Dr. Abby Sanchez WBC 5-10 Abnormal NONE SEEN [facility] Comment on above: Performed By: #### CATHY MOE ####[facility] [address] [place], [place] [address]Dr. Abby Daniel CBC AUTO DIFFon 11-17-2021 BASO # 0.1 103/ul Normal 0.0-0.1 [facility] Comment on above: Performed By: #### C BC ####[facility] [address] [place], [place] [address]Dr. Abby Sanchez Basophils/100 WBC (Bld) 0.9 % Normal 0.2-2.0 [facility] Comment on above: Performed By: #### C BC ####[facility] [address] [place], [place] [address]Dr. Abby Sanchez EO # 0.1 103/ul Normal 0.0-0.7 [facility] Comment on above: Performed By: #### C BC ####[facility] [address] [place], [place] [address]Dr. Abby Sanchez Eosinophils/100 WBC (Bld) 1.9 % Normal 0.9-7.0 [facility] Comment on above: Performed By: #### C BC ####[facility] [address] [place], [place] [address]Dr. Abby Sanchez Erythrocyte distribution width (RBC) [Ratio] 13.8 % Normal 11.0-15.0 [facility] Comment on above: Performed By: #### C BC ####[facility] [address] [address]Dr. Abby Sanchez Hematocrit (Bld) [Volume fraction] 44.4 % Normal 36.0-48.0 [facility] Comment on above: Performed By: #### C BC ####[facility] [address] [address]Dr. Abby Sanchez Hemoglobin (Bld) [Mass/Vol] 14.5 g/dL Normal 12.0-16.0 [facility] Comment on above: Performed By: #### C BC ####[facility] [address] [address]Dr. Abby Sanchez IG # 0.02 10e3/ul Normal 0.00-0.03 [facility] Comment on above: Performed By: #### C BC ####[facility] [address] [address]Dr. Abby Sanchez IG % 0.4 % Normal 0.0-0.5 [facility] Comment on above: Performed By: #### C BC ####[facility] [address] [address]Dr. Abby Sanchez LYMPH # 1.8 103/ul Normal 1.2-3.8 [facility] Comment on above: Performed By: #### C BC ####[facility] [address] [address]Dr. Abby Daniel Lymphocytes/100 WBC (Bld) 30.9 % Normal 20.5-60.0 [facility] Comment on above: Performed By: #### C BC ####[facility] [address] [address]Dr. Kirabrittney Sanchez MANUAL DIFF REQ NO Normal [facility] Comment on above: Performed By: #### C BC ####[facility] [address] [address]Dr. Abby Sanchez MCH (RBC) [Entitic mass] 31.2 pg Normal 26.7-34.0 [facility] Comment on above: Performed By: #### C BC ####[facility] [address] [address]Dr. Abby Sanchez MCHC (RBC) [Mass/Vol] 32.7 g/dL Normal 29.9-35.2 [facility] Comment on above: Performed By: #### C BC ####[facility] [address] [address]Dr. Abby Sanchez MCV (RBC) [Entitic vol] 95.5 fL Normal 81.0-99.0 [facility] Comment on above: Performed By: #### C BC ####[facility] [address] [place], [place] [address]Dr. Abby Sanchez MONO # 0.3 103/ul Normal 0.3-0.8 [facility] Comment on above: Performed By: #### C BC ####[facility] [address] [place], [place] [address]Dr. Abby Sanchez Monocytes/100 WBC (Bld) 5.3 % Normal 1.7-12.0 [facility] Comment on above: Performed By: #### C BC ####[facility] [address] [place], [place] [address]Dr. Abby Sanchez NEUT # 3.5 103/ul Normal 1.4-6.5 [facility] Comment on above: Performed By: #### C BC ####[facility] [address] [place], [place] [address]Dr. Abby Daniel Neutrophils/100 WBC (Bld) 60.6 % Normal 43.0-75.0 [facility] Comment on above: Performed By: #### C BC ####[facility] [address] [place], [place] [address]Dr. Abby Sanchez Platelet mean volume (Bld) [Entitic vol] 9.6 fL Normal 9.5-13.5 [facility] Comment on above: Performed By: #### C BC ####[facility] [address] [place], [place] [address]Mz. Abby Sanchez PLT 308 103/ul Normal 150-450 [facility] Comment on above: Performed By: #### C BC ####[facility] [address] [id number] Malonebrittney Sanchez RBC 4.65 106/ul Normal 4.20-5.40 [facility] Comment on above: Performed By: #### C BC ####[facility] [address] [address]Dr. Kirabrittney Daniel WBC 5.7 103/ul Normal 4.0-11.0 [facility] Comment on above: Performed By: #### C BC ####[facility] [address] [id number]. Abby Sanchez GLYCOHEMOGLOBIN A1Con 2021 ADA RECOMMENDATION SEE BELOW Normal [facility] Comment on above: Result Comment: ADA RECOMMENDED LIMIT 4.0 - 6.0 ADA THERAPEUTIC TARGET < 7.0 ACTION SUGGESTED > 7.0 Performed By: #### A 1C #### [facility] [address] [address] [address] Abby Sanchez Glucose [Mass/Vol] 131 mg/dL Normal [facility] Comment on above: Performed By: #### A 1C #### [facility] [address] [place] [address] Dr. Abby Sanchez HbA1c (Bld) [Mass fraction] 6.2 % Normal 4.5-6.2 [facility] Comment on above: Performed By: #### A 1C #### [facility] [address] [address] [address] Abby Sanchez LIPASEon 11-17-2021 Lipase [Catalytic activity/Vol] 117.0 U/L Normal 73.0-393.0 [facility] Comment on above: Performed By: #### C MP, LIPA, LIPID #### [facility] [address] [address] [address] Abby Sanchez LIPID PROFILEon 11-17-2021 CHOL-HDL RATIO NORM SEE BELOW Normal [facility] Comment on above: Result Comment: 3.3 - 4.4 LOW RISK 4.4 - 7.1 AVERAGE RISK 7.1 - 11.0 MODERATE RISK >11.0 HIGH RISK Performed By: #### C MP, LIPA, LIPID #### [facility] [address] [place] [address] Dr. Abby Sanchez Cholesterol [Mass/Vol] 220 mg/dL Critically high <=200 [facility] Comment on above: Performed By: #### C MP, LIPA, LIPID #### [facility] [address] [address] [address] Abby Sanchez Cholesterol in HDL [Mass/Vol] 52 mg/dL Normal 40-60 [facility] Comment on above: Performed By: #### C MP, LIPA, LIPID #### [facility] [address] [place] [address] Dr. Abby Sanchez Cholesterol in LDL [Mass/Vol] 142.8 mg/dL Normal [facility] Comment on above: Performed By: #### C MP, LIPA, LIPID #### [facility] [address] [place] [address] Dr. Abby Sanchez Cholesterol.total/C holesterol in HDL [Mass ratio] 4.2 {ratio} Normal [facility] Comment on above: Performed By: #### C MP, LIPA, LIPID #### [facility] [address] [place] [address] Dr. Abby Sanchez HDL NORMAL > or = 60 mg/dl - LO W CARDIOVASCULAR RISK <40 mg/dl - HIGH CARDIOVASCULAR RISK Normal [facility] Comment on above: Performed By: #### C MP, LIPA, LIPID #### [facility] [address] [place] [address] Dr. Abby Sanchez LDL CALC NORMAL SEE BELOW Normal [facility] Comment on above: Result Comment: <100 mg/dl OPTIMAL 100 - 129 mg/dl NEAR OR ABOVE OPTIMAL 130 - 159 mg/dl BORDERLINE HIGH 160 - 189 mg/dl HIGH >190 mg/dl VERY HIGH Performed By: #### C MP, LIPA, LIPID #### [facility] [address] [place] [address] Dr. Abby Sanchez Triglyceride [Mass/Vol] 126 mg/dL Normal <=150 [facility] Comment on above: Performed By: #### C MP, LIPA, LIPID #### [facility] [address] [address] [address] Abby Sanchez VLDL CALC 25.2 mg/dL Normal [facility] Comment on above: Performed By: #### C MP, LIPA, LIPID #### [facility] [address] [address] [address] Abby Sanchez PROF 14(COMP METB)on 022 Albumin [Mass/Vol] 3.3 g/dL Critically low 3.4-5.0 Th e [facility] Comment on above: Performed By: #### C MP, LIPA, LIPID ####[facility] [address] [address]Dr. Abby Sanchez Albumin/Globulin [Mass ratio] 0.8 {ratio} Normal [facility] Comment on above: Performed By: #### C MP, LIPA, LIPID ####[facility] [address] [address]Dr. Abby Sanchez ALP [Catalytic activity/Vol] 111 U/L Normal 46-116 [facility] Comment on above: Performed By: #### C MP, LIPA, LIPID ####[facility] [address] [address]Dr. Abby Sanchez ALT [Catalytic activity/Vol] 25 U/L Normal 14-59 [facility] Comment on above: Performed By: #### C MP, LIPA, LIPID ####[facility] [address] [address]Dr. Abby Sanchez Anion gap [Moles/Vol] 11.8 mmol/L Normal [facility] Comment on above: Performed By: #### C MP, LIPA, LIPID ####[facility] [address] [address]Dr. Abby Sanchez AST [Catalytic activity/Vol] 19 U/L Normal 15-37 [facility] Comment on above: Performed By: #### C MP, LIPA, LIPID ####[facility] [address] [address]Dr. Abby Sanchez Bilirubin [Mass/Vol] 0.4 mg/dL Normal 0.2-1.0 [facility] Comment on above: Performed By: #### C MP, LIPA, LIPID ####[facility] [address] [address]Dr. Abby Sanchez Calcium [Mass/Vol] 9.1 mg/dL Normal 8.5-10.1 [facility] Comment on above: Performed By: #### C MP, LIPA, LIPID ####[facility] [address] [place], [place] [address]Dr. Abby Sanchez Chloride [Moles/Vol] 103 mmol/L Normal 98-107 [facility] Comment on above: Performed By: #### C MP, LIPA, LIPID ####[facility] [address] [place], [place] [address]Dr. Abby Sanchez CO2 [Moles/Vol] 28.8 mmol/L Normal 21.0-32.0 [facility] Comment on above: Performed By: #### C MP, LIPA, LIPID ####[facility] [address] [place], [place] [address]Dr. Abby Sanchez Creatinine [Mass/Vol] 0.76 mg/dL Normal 0.55-1.02 [facility] Comment on above: Performed By: #### C MP, LIPA, LIPID ####[facility] [address] [place], [place] [address]Dr. Abby Sanchez EGFR-AF SLOVENIAN >60 Normal >=60 [facility] Comment on above: Performed By: #### C MP, LIPA, LIPID ####[facility] [address] [place], [place] [address]Dr. Abby Sanchez EGFR-NON AF SLOVENIAN >60 Normal >=60 [facility] Comment on above: Performed By: #### C MP, LIPA, LIPID ####[facility] [address] [place], [place] [address]Dr. Abby Sanchez Globulin (S) [Mass/Vol] 4.1 g/dL Normal [facility] Comment on above: Performed By: #### C MP, LIPA, LIPID ####[facility] [address] [address]Dr. Abby Sanchez Glucose [Mass/Vol] 111 mg/dL Critically high 74-106 [facility] Comment on above: Performed By: #### C MP, LIPA, LIPID ####[facility] [address] [address]Dr. Abby Sanchez Potassium [Moles/Vol] 4.6 mmol/L Normal 3.5-5.1 [facility] Comment on above: Performed By: #### C MP, LIPA, LIPID ####[facility] [address] [address]Dr. Abby Sanchez Protein [Mass/Vol] 7.4 g/dL Normal 6.4-8.2 [facility] Comment on above: Performed By: #### C MP, LIPA, LIPID ####[facility] [address] [address]Dr. Abby Sanchez Sodium [Moles/Vol] 139 mmol/L Normal 136-145 [facility] Comment on above: Performed By: #### C MP, LIPA, LIPID ####[facility] [address] [address]Dr. Abby Sanchez Urea nitrogen [Mass/Vol] 12.0 mg/dL Normal 7.0-18.0 [facility] Comment on above: Performed By: #### C MP, LIPA, LIPID ####[facility] [address] [address]Dr. Abby Sanchez Urea nitrogen/Creatinine [Mass ratio] 15.8 mg/mg Normal [facility] Comment on above: Performed By: #### C MP, LIPA, LIPID ####[facility] [address] [address]Dr. Abby Sanchez INFLUENZA A AND B AGon 10-14 INFLUANEGH SEE BELOW Normal [facility] Comment on above: Result Comment: Nega tive for Flu A protein angiten. Infection due to Flu A cannot be ruled out. Flu A angiten in the sample may be below the detection limit of the test. Performed By: #### I NFLUAB #### [facility] [address] [place] [address] Dr. Abby Sanchez [facility] SEE BELOW Normal [facility] Comment on above: Result Comment: Nega tive for Flu B protein antigen. Infection due to Flu B cannot be ruled out. Flu B antigen in the sample may be below the detection limit of the test. Performed By: #### I NFLUAB #### [facility] [address] [place] [address] Dr. Abby Sanchez INFLUENZA A AG Negative Normal NEGATIVE SEE COMMENT [facility] Comment on above: Performed By: #### I NFLUAB #### [facility] [address] [place] [address] Dr. Abby Sanchez INFLUENZA B AG Negative Normal NEGATIVE SEE COMMENT [facility] Comment on above: Performed By: #### I NFLUAB #### [facility] [address] [place] [address] Dr. Abby Sanchez INTERNAL CONTROLS Within Normal Limits Normal Wi thin Normal Limits [facility] Comment on above: Performed By: #### I NFLUAB #### [facility] [address] [place] [address] Dr. Abby Sanchez XR CHEST 1 Von [...] CEASAR RENTERIA Date: 2021-10-14 13:03 Normal [facility] Covid-19 PCR (CVDTB)on SARS-CoV-2 (COVID-19) RNA HAO+probe Ql (Unsp spec) Detected Critically abnormal NOT DETECTED [facility] Comment on above: Result Comment: This test is not yet approved or cleared by the [place] FDA. When there are no FDA-approved or cleared tests available, and other criteria are met, FDA can make tests available under an emergency access mechanism called an Emergency Use Authorization (EUA). The EUA for this test is supported by the [place] of Health and Human Service's declaration that [...] longer be used). Performed By: #### C [facility] ####[facility] [address] [place], [place] [address]QaChandrakant Sanchez XR HAND RIGHT (MIN 3 VIEWS)o [...] Deyanira Cortés MD 04/25/19 Final result Normal [facility] C-Reactive Proteinon 019 CRP [Mass/Vol] 57.2 mg/L High 0.0-5.0 [facility] Comment on above: Performed By: #### C DP, CRP #### [facility] [address] [place] [address] Home Improvement Advisor: Wang Day MD CBC with Diffon 12-17-2018 Abs. Basophil 0.04 k/uL Normal 0.00-0.20 [facility] Comment on above: Performed By: #### C DP, CRP #### [facility] [address] [place] [address] Home Improvement Advisor: Wang Day MD Abs.Imm.Granulocyte 0.03 k/uL Normal 0.00-0.30 [facility] Comment on above: Performed By: #### C DP, CRP #### [facility] [address] [place] [address] Home Improvement Advisor: Wang Day MD Abs.Neutrophil (Seg) 6.82 k/uL Normal 1.50-8.10 [facility] Comment on above: Performed By: #### C DP, CRP #### [facility] [address] [place] [address] Home Improvement Advisor: Wang Day MD Basophils/100 WBC (Bld) 0 % Normal 0-2 [facility] Comment on above: Performed By: #### C DP, CRP #### [address] [place] [address] Home Improvement Advisor: Wang Day MD Eosinophils (Bld) [#/Vol] 0.11 10*3/uL Normal 0.00-0.44 [facility] Comment on above: Performed By: #### C DP, CRP #### [address] [place] [address] Home Improvement Advisor: Wang Day MD Eosinophils/100 WBC (Bld) 1 % Normal 1-4 [facility] Comment on above: Performed By: #### C DP, CRP #### [address] [place] [address] Home Improvement Advisor: Wang Day MD Erythrocyte distribution width (RBC) [Ratio] 12.6 % Normal 11.8-14.4 [facility] Comment on above: Performed By: #### C DP, CRP #### [address] [place] [address] Home Improvement Advisor: Wang Day MD Hematocrit (Bld) [Volume fraction] 36.5 % Normal 36.3-47.1 [facility] Comment on above: Performed By: #### C DP, CRP #### [address] [place] [id number] Home Improvement Advisor: Wang Day MD Hemoglobin (Bld) [Mass/Vol] 12.1 g/dL Normal 11.9-15.1 [facility] Comment on above: Performed By: #### C DP, CRP #### [facility] [address] [place], [place] [id number] Home Improvement Advisor: Wang Day MD Immature granulocytes (Bld) [#/Vol] 0 % Normal 0 [facility] Comment on above: Performed By: #### C DP, CRP #### [facility] [address] [place] [address] Home Improvement Advisor: Wang Day MD Lymphocytes (Bld) [#/Vol] 1.57 10*3/uL Normal 1.10-3.70 [facility] Comment on above: Performed By: #### C DP, CRP #### [facility] [address] [place], [facility] Home Improvement Advisor: Wang Day MD Lymphocytes/100 WBC (Bld) 17 % Low 24-43 [facility] Comment on above: Performed By: #### C DP, CRP #### [facility] [address] [place], [place] [id number] Home Improvement Advisor: Wang Day MD MCH (RBC) [Entitic mass] 31.3 pg Normal 25.2-33.5 [facility] Comment on above: Performed By: #### C DP, CRP #### [facility] [address] [place], [facility] Home Improvement Advisor: Wang Day MD MCHC (RBC) [Mass/Vol] 33.2 g/dL Normal 28.4-34.8 [facility] Comment on above: Performed By: #### C DP, CRP #### [facility] [address] [place] [address] Home Improvement Advisor: Wang Day MD MCV (RBC) [Entitic vol] 94.6 fL Normal 82.6-102.9 [facility] Comment on above: Performed By: #### C DP, CRP #### [facility] [address] [place], [place] [id number] Home Improvement Advisor: Wang Day MD Monocytes (Bld) [#/Vol] 0.84 10*3/uL Normal 0.10-1.20 [facility] Comment on above: Performed By: #### C DP, CRP #### [facility] [address] [place], [place] [id number] Home Improvement Advisor: Wang Day MD Monocytes/100 WBC (Bld) 9 % Normal 3-12 [facility] Comment on above: Performed By: #### C DP, CRP #### [facility] [address] [place], [place] [address] Home Improvement Advisor: Wang Day MD Neutrophil (Seg) 73 % High 36-65 [facility] Comment on above: Performed By: #### C DP, CRP #### [facility] [address] [place], [place] [id number] Home Improvement Advisor: Wang Day MD NRBC Automated 0.0 per 100 WBC Normal 0.0 [facility] Comment on above: Performed By: #### C DP, CRP #### [facility] [address] [place], [place] [address] Home Improvement Advisor: Wang Day MD Platelet mean volume (Bld) [Entitic vol] 9.8 fL Normal 8.1-13.5 [facility] Comment on above: Performed By: #### C DP, CRP #### [facility] [address] [place], [place] [id number] Home Improvement Advisor: Wang Day MD Platelets (Bld) [#/Vol] 290 10*3/uL Normal 138-453 [facility] Comment on above: Performed By: #### C DP, CRP #### [facility] [address] [place], [place] [phone] Home Improvement Advisor: Wang Day MD RBC (Bld) [#/Vol] 3.86 10*6/uL Low 3.95-5.11 [facility] Comment on above: Performed By: #### C DP, CRP #### [facility] [address] [place], [place] [phone] Home Improvement Advisor: Wang Day MD WBC (Bld) [#/Vol] 9.4 10*3/uL Normal 3.5-11.3 [facility] Comment on above: Performed By: #### C DP, CRP #### [address] [place], [place] [id number] Home Improvement Advisor: Wang Day MD Auto Diff Performed NOT REPORTED Normal [facility] Comment on above: Performed By: #### C DP, CRP #### [address] [place], [facility] Home Improvement Advisor: Wang Day MD Platelets (Bld) [#/Vol] NOT REPORTED Normal [facility] Comment on above: Performed By: #### C DP, CRP #### [address] [place], [facility] Home Improvement Advisor: Wang Day MD RBC morphology finding Nom (Bld) NOT REPORTED Normal [facility] Comment on above: Performed By: #### C DP, CRP #### [facility] [address] [place], [facility] Home Improvement Advisor: Wang Day MD WBC Morphology NOT REPORTED Normal [facility] Comment on above: Performed By: #### C DP, CRP #### [facility] [address] [place], [place] [phone] Home Improvement Advisor: Wang Day MD Urinalysis w/ Microon 2018 ----- Normal [facility] Comment on above: Performed By: #### U AMIC #### [facility] [address] [place], [place] [phone] Home Improvement Advisor: Wang Day MD Acetoacetic Acid,Ur TRACE Abnormal [facility] Comment on above: Performed By: #### U AMIC #### [facility] [address] [place] [address] Home Improvement Advisor: Wang Day MD Amorphous sediment LM Ql (Urine sed) TRACE Abnormal [facility] Comment on above: Performed By: #### U AMIC #### [facility] [address] [place] [phone] Home Improvement Advisor: Wang Day MD Bacteria LM.HPF (Urine sed) [#/Area] TRACE Abnormal [facility] Comment on above: Performed By: #### U AMIC #### [address] [place] [address] Home Improvement Advisor: Wang Day MD Bilirubin, SemiQt,Ur Negative Normal [facility] Comment on above: Performed By: #### U AMIC #### [address] [place] [phone] Home Improvement Advisor: Wang Day MD Color (U) YELLOW Normal L [facility] Comment on above: Performed By: #### U AMIC #### [facility] [address] [place] [phone] Home Improvement Advisor: Wang Day MD Epithelial cells LM.HPF (Urine sed) [#/Area] 2 TO 5 Normal 0-25 [facility] Comment on above: Performed By: #### U AMIC #### [facility] [address] [place], [place] [address] Home Improvement Advisor: Wang Day MD Glucose Ql (U) Negative Normal [facility] Comment on above: Performed By: #### U AMIC #### [facility] [address] [place] [address] Home Improvement Advisor: Wang Day MD Hemoglobin, Ur 1+ Abnormal NEG [facility] Comment on above: Performed By: #### U AMIC #### [facility] [address] [place] [address] Home Improvement Advisor: Wang Day MD Leukocyte esterase Test strip Ql (U) Negative Normal NEG [facility] Comment on above: Performed By: #### U AMIC #### [facility] [address] [place] [address] Home Improvement Advisor: Wang Day MD Nitrite,Ur Negative Normal NEG [facility] Comment on above: Performed By: #### U AMIC #### [facility] [address] [place] [address] Home Improvement Advisor: Wang Day MD pH (U) 7.5 [pH] Normal 5.0-9.0 [facility] Comment on above: Performed By: #### U AMIC #### [facility] [address] [place], [place] [phone] Home Improvement Advisor: Wang Day MD Protein Ql (U) TRACE Abnormal NEG [facility] Comment on above: Performed By: #### U AMIC #### [facility] [address] [place] [address] Home Improvement Advisor: Wang Day MD RBC (U) [#/Vol] 10 TO 20 Normal 0-2 [facility] Comment on above: Performed By: #### U AMIC #### [facility] [address] [place] [address] Home Improvement Advisor: Wang Day MD Specific gravity (U) [Rel density] 1.010 Normal 1.010-1.020 [facility] Comment on above: Performed By: #### U AMIC #### [facility] [address] [place] [address] Home Improvement Advisor: Wang Day MD Turbidity CLEAR Normal CLEAR [facility] Comment on above: Performed By: #### U AMIC #### [facility] [address] [place] [address] Home Improvement Advisor: Wang Day MD Urobilinogen,Ur ELEVATED Abnormal NORM [facility] Comment on above: Performed By: #### U AMIC #### [facility] [address] [place], [place] [phone] Home Improvement Advisor: Wang Day MD WBC (U) [#/Vol] 0 TO 2 Normal 0-5 [facility] Comment on above: Performed By: #### U AMIC #### [facility] [address] [place], [place] [phone] Home Improvement Advisor: Wang Day MD Casts LM.LPF (Urine sed) [#/Area] NOT REPORTED Normal [facility] Comment on above: Performed By: #### U AMIC #### [facility] [address] [place], [place] [phone] Home Improvement Advisor: Wang Day MD Comment NOT REPORTED Normal [facility] Comment on above: Performed By: #### U AMIC #### [facility] [address] [place], [place] [phone] Home Improvement Advisor: Wang Day MD Crystals LM Nom (Urine sed) NOT REPORTED Normal [facility] Comment on above: Performed By: #### U AMIC #### [facility] [address] [place], [place] [phone] Home Improvement Advisor: Wang Day MD Epithelial, Renal NOT REPORTED Normal 0 [facility] Comment on above: Performed By: #### U AMIC #### [facility] [address] [place] [address] Home Improvement Advisor: Wang Day MD Mucus Strands NOT REPORTED Normal [facility] Comment on above: Performed By: #### U AMIC #### [facility] [address] [place], [place] [address] Home Improvement Advisor: Wang Day MD Other Observations NOT REPORTED [facility]: Performed By: #### U AMIC #### [facility] [address] [place], [place] [phone] Home Improvement Advisor: Wang Day MD Trichomonas NOT REPORTED Normal [facility] Comment on above: Performed By: #### U AMIC #### [facility] [address] [place], [place] [phone] Home Improvement Advisor: Wang Day MD Yeast LM Ql (Urine sed) NOT REPORTED Normal [facility] Comment on above: Performed By: #### U AMIC #### [facility] [address] [place] [address] Home Improvement Advisor: Wang Day MD Basic Metabolic Profon 12-13 (cont.) Normal [facility] Comment on above: Result Comment: Aver age GFR for 50-59 years old: 93 mL/min/1.73sq m Chronic Kidney Disease: <60 mL/min/1.73sq m Kidney failure: <15 mL/min/1.73sq m eGFR calculated using average adult body mass. Additional eGFR calculator available at: http://www.[email or web address]/multiple_crcl_2012.htm Performed By: #### C BC, BMP #### [facility] [address] [place], [place] [phone] Home Improvement Advisor: Sebastián Garsia MD Anion gap [Moles/Vol] 11 mmol/L Normal 9-17 [facility] Comment on above: Performed By: #### C BC, BMP #### [facility] [address] [place], [place] [phone] Home Improvement Advisor: Sebastián Garsia MD Calcium [Mass/Vol] 8.3 mg/dL Low 8.6-10.4 [facility] Comment on above: Performed By: #### C BC, BMP #### [facility] [address] [place] [address] Home Improvement Advisor: Sebastián Garsia MD Chloride [Moles/Vol] 106 mmol/L Normal 98-107 [facility] Comment on above: Performed By: #### C BC, BMP #### [facility] [address] [place] [address] Home Improvement Advisor: Sebastián Garsia MD CO2 [Moles/Vol] 24 mmol/L Normal 20-31 [facility] Comment on above: Performed By: #### C BC, BMP #### [facility] [address] [place] [address] Home Improvement Advisor: Sebastián Garsia MD Creatinine [Mass/Vol] 0.60 mg/dL Normal 0.50-0.90 [facility] Comment on above: Performed By: #### C BC, BMP #### [facility] [address] [place] [address] Home Improvement Advisor: Sebastián Garsia MD GFR, Amer >60 Normal >60 [facility] Comment on above: Performed By: #### C BC, BMP #### [facility] [address] [place] [address] Home Improvement Advisor: Sebastián Garsia MD GFR,non Amer >60 Normal >60 [facility] Comment on above: Performed By: #### C BC, BMP #### [facility] [address] [place] [address] Home Improvement Advisor: Sebastián Garsia MD Glucose [Mass/Vol] 106 mg/dL High 70-99 [facility] Comment on above: Performed By: #### C BC, BMP #### [facility] [address] [place] [address] Home Improvement Advisor: Sebastián Garsia MD Potassium [Moles/Vol] 4.4 mmol/L Normal 3.7-5.3 [facility] Comment on above: Performed By: #### C BC, BMP #### [address] [address] Home Improvement Advisor: Sebastián Garsia MD Sodium [Moles/Vol] 141 mmol/L Normal 135-144 [facility] Comment on above: Performed By: #### C BC, BMP #### [address] [address] Home Improvement Advisor: Sebastián Garsia MD Urea nitrogen [Mass/Vol] 11 mg/dL Normal -20 [facility] Comment on above: Performed By: #### C BC, BMP #### [facility] [employer] [address] [place] [address] Home Improvement Advisor: Sebastián Garsia MD BUN/CRE Ratio NOT REPORTED Normal - [facility] Comment on above: Performed By: #### C BC, BMP #### [address] [address] Home Improvement Advisor: Sebastián Garsia MD Staging: NOT REPORTED Normal [facility] Comment on above: Performed By: #### C BC, BMP #### [address] [address] Home Improvement Advisor: Sebastián Garsia MD CBCon 12-13-2018 Erythrocyte distribution width (RBC) [Ratio] 13.1 % Normal 11.8-14.4 [facility] Comment on above: Performed By: #### C BC, BMP #### [facility] [employer] [address] [place] [address] Home Improvement Advisor: Sebastián Garsia MD Hematocrit (Bld) [Volume fraction] 35.7 % Low 36.3-47.1 [facility] Comment on above: Performed By: #### C BC, BMP #### [facility] [employer] [address] [place] [address] Home Improvement Advisor: Sebastián Garsia MD Hemoglobin (Bld) [Mass/Vol] 11.6 g/dL Low 11.9-15.1 [facility] Comment on above: Performed By: #### C BC, BMP #### [address] [address] Home Improvement Advisor: Sebastián Garsia MD MCH (RBC) [Entitic mass] 31.6 pg Normal 25.2-33.5 [facility] Comment on above: Performed By: #### C BC, BMP #### [address] [address] Home Improvement Advisor: Sebastián Garsia MD MCHC (RBC) [Mass/Vol] 32.5 g/dL Normal 28.4-34.8 [facility] Comment on above: Performed By: #### C BC, BMP #### [address] [address] Home Improvement Advisor: Sebastián Garsia MD MCV (RBC) [Entitic vol] 97.3 fL Normal 82.6-102.9 [facility] Comment on above: Performed By: #### C BC, BMP #### [facility] [employer] [address] [place] [address] Home Improvement Advisor: Sebastián Garsia MD NRBC Automated 0.0 per 100 WBC Normal 0.0 [facility] Comment on above: Performed By: #### C BC, BMP #### [facility] [employer] [address] [place] [address] Home Improvement Advisor: Sebastián Garsia MD Platelet mean volume (Bld) [Entitic vol] 10.1 fL Normal 8.1-13.5 [facility] Comment on above: Performed By: #### C BC, BMP #### [facility] [employer] [address] [place] [address] Home Improvement Advisor: Sebastián Garsia MD Platelets (Bld) [#/Vol] 260 10*3/uL Normal 138-453 [facility] Comment on above: Performed By: #### C BC, BMP #### [facility] [address] [place] [address] Home Improvement Advisor: Sebastián Garsia MD RBC (Bld) [#/Vol] 3.67 10*6/uL Low 3.95-5.11 [facility] Comment on above: Performed By: #### C BC, BMP #### [facility] [address] [place] [address] Home Improvement Advisor: Sebastián Garsia MD WBC (Bld) [#/Vol] 9.5 10*3/uL Normal 3.5-11.3 [facility] Comment on above: Performed By: #### C BC, BMP #### [facility] [address] [place] [address] Home Improvement Advisor: Sebastián Garsia MD Basic Metabolic Profon 12-08 (cont.) Normal [facility] Comment on above: Result Comment: Aver age GFR for 50-59 years old: 93 mL/min/1.73sq m Chronic Kidney Disease: <60 mL/min/1.73sq m Kidney failure: <15 mL/min/1.73sq m eGFR calculated using average adult body mass. Additional eGFR calculator available at: http://www.[email or web address]/multiple_crcl_2011.htm Performed By: #### C DP, BMP #### [facility] [address] [place] [address] Home Improvement Advisor: Wang Day MD Anion gap [Moles/Vol] 10 mmol/L Normal -17 [facility] Comment on above: Performed By: #### C DP, BMP #### [facility] [address] [place] [address] Home Improvement Advisor: Wang Day MD BUN/CRE Ratio 15 Normal - [facility] Comment on above: Performed By: #### C DP, BMP #### [facility] [address] [place], [place] [phone] Home Improvement Advisor: Wang Day MD Calcium [Mass/Vol] 9.6 mg/dL Normal 8.6-10.4 [facility] Comment on above: Performed By: #### C DP, BMP #### [facility] [address] [place], [place] [phone] Home Improvement Advisor: Wang Day MD Chloride [Moles/Vol] 101 mmol/L Normal 98-107 [facility] Comment on above: Performed By: #### C DP, BMP #### [facility] [address] [place], [place] [phone] Home Improvement Advisor: Wang Day MD CO2 [Moles/Vol] 26 mmol/L Normal 20-31 [facility] Comment on above: Performed By: #### C DP, BMP #### [facility] [address] [place], [place] [phone] Home Improvement Advisor: Wang Day MD Creatinine [Mass/Vol] 0.68 mg/dL Normal 0.50-0.90 [facility] Comment on above: Performed By: #### C DP, BMP #### [facility] [address] [place], [place] [phone] Home Improvement Advisor: Wang Day MD GFR, Amer >60 Normal >60 [facility] Comment on above: Performed By: #### C DP, BMP #### [facility] [address] [place], [place] 1348783 Home Improvement Advisor: Wang Day MD GFR,non Amer >60 Normal >60 [facility] Comment on above: Performed By: #### C DP, BMP #### [facility] [address] [place], [place] [phone] Home Improvement Advisor: Wang Day MD Glucose [Mass/Vol] 95 mg/dL Normal 70-99 [facility] Comment on above: Performed By: #### C DP, BMP #### [facility] [address] [place], [facility] Home Improvement Advisor: Wang Day MD Potassium [Moles/Vol] 4.5 mmol/L Normal 3.7-5.3 [facility] Comment on above: Performed By: #### C DP, BMP #### [facility] [address] [place], [facility] Home Improvement Advisor: Wang Day MD Sodium [Moles/Vol] 137 mmol/L Normal 135-144 [facility] Comment on above: Performed By: #### C DP, BMP #### [facility] [address] [place] [phone] Home Improvement Advisor: Wang Day MD Staging: Normal [facility] Comment on above: Result Comment: Stag e 1: Some kidney damage normal GFR Stage 2: Mild kidney damage GFR 60-89 Stage 3: Moderate kidney damage GFR 30-59 Stage 4: Severe kidney damage GFR 15-29 Stage 5: Severe kidney damage GFR <15 ESRD - chronic treatment by dialysis or transplant Performed By: #### C DP, BMP #### [address] [place], [facility] Home Improvement Advisor: Wang Day MD Urea nitrogen [Mass/Vol] 10 mg/dL Normal 6-20 [facility] Comment on above: Performed By: #### C DP, BMP #### [facility] [address] [place], [facility] Home Improvement Advisor: Wang Day MD CBC with Diffon 12-08-2018 Abs. Basophil 0.06 k/uL Normal 0.00-0.20 [facility] Comment on above: Performed By: #### C DP, BMP #### [facility] [address] [place] [address] Home Improvement Advisor: Wang Day MD Abs.Imm.Granulocyte 0.03 k/uL Normal 0.00-0.30 [facility] Comment on above: Performed By: #### C DP, BMP #### [facility] [address] [place] [address] Home Improvement Advisor: Wang Day MD Abs.Neutrophil (Seg) 5.90 k/uL Normal 1.50-8.10 [facility] Comment on above: Performed By: #### C DP, BMP #### [facility] [address] [place], [place] [address] Home Improvement Advisor: Wang Day MD Basophils/100 WBC (Bld) 1 % Normal 0-2 [facility] Comment on above: Performed By: #### C DP, BMP #### [address] [place] [address] Home Improvement Advisor: Wang Day MD Eosinophils (Bld) [#/Vol] 0.16 10*3/uL Normal 0.00-0.44 [facility] Comment on above: Performed By: #### C DP, BMP #### [address] [place], [place] [address] Home Improvement Advisor: Wang Day MD Eosinophils/100 WBC (Bld) 2 % Normal 1-4 [facility] Comment on above: Performed By: #### C DP, BMP #### [address] [place], [place] [address] Home Improvement Advisor: Wang Day MD Erythrocyte distribution width (RBC) [Ratio] 12.9 % Normal 11.8-14.4 [facility] Comment on above: Performed By: #### C DP, BMP #### [address] [place] [phone] Home Improvement Advisor: Wang Day MD Hematocrit (Bld) [Volume fraction] 44.4 % Normal 36.3-47.1 [facility] Comment on above: Performed By: #### C DP, BMP #### [address] [place], [place] [address]5983 Home Improvement Advisor: Wang Day MD Hemoglobin (Bld) [Mass/Vol] 14.3 g/dL Normal 11.9-15.1 [facility] Comment on above: Performed By: #### C DP, BMP #### [facility] [address] [place] [phone] Home Improvement Advisor: Wang Day MD Immature granulocytes (Bld) [#/Vol] 0 % Normal 0 [facility] Comment on above: Performed By: #### C DP, BMP #### [facility] [address] [place] [facility] Home Improvement Advisor: Wang Day MD Lymphocytes (Bld) [#/Vol] 2.20 10*3/uL Normal 1.10-3.70 [facility] Comment on above: Performed By: #### C DP, BMP #### [facility] [address] [place], [facility] Home Improvement Advisor: Wang Day MD Lymphocytes/100 WBC (Bld) 25 % Normal 24-43 [facility] Comment on above: Performed By: #### C DP, BMP #### [facility] [address] [place], [place] [phone] Home Improvement Advisor: Wang Day MD MCH (RBC) [Entitic mass] 31.3 pg Normal 25.2-33.5 [facility] Comment on above: Performed By: #### C DP, BMP #### [facility] [address] [place], [facility] Home Improvement Advisor: Wang Day MD MCHC (RBC) [Mass/Vol] 32.2 g/dL Normal 28.4-34.8 [facility] Comment on above: Performed By: #### C DP, BMP #### [facility] [address] [place] [phone] Home Improvement Advisor: Wang Day MD MCV (RBC) [Entitic vol] 97.2 fL Normal 82.6-102.9 [facility] Comment on above: Performed By: #### C DP, BMP #### [facility] [address] [place], [facility] Home Improvement Advisor: Wang Day MD Monocytes (Bld) [#/Vol] 0.57 10*3/uL Normal 0.10-1.20 [facility] Comment on above: Performed By: #### C DP, BMP #### [facility] [address] [place], [place] [address] Home Improvement Advisor: Wang Day MD Monocytes/100 WBC (Bld) 6 % Normal 3-12 [facility] Comment on above: Performed By: #### C DP, BMP #### [facility] [address] [place], [place] [address] Home Improvement Advisor: Wang Day MD Neutrophil (Seg) 66 % High 36-65 [facility] Comment on above: Performed By: #### C DP, BMP #### [facility] [address] [place], [place] [address] Home Improvement Advisor: Wang Day MD NRBC Automated 0.0 per 100 WBC Normal 0.0 [facility] Comment on above: Performed By: #### C DP, BMP #### [facility] [address] [place], [place] [address] Home Improvement Advisor: Wang Day MD Platelet mean volume (Bld) [Entitic vol] 9.9 fL Normal 8.1-13.5 [facility] Comment on above: Performed By: #### C DP, BMP #### [facility] [address] [place], [place] [phone] Home Improvement Advisor: Wang Day MD Platelets (Bld) [#/Vol] 298 10*3/uL Normal 138-453 [facility] Comment on above: Performed By: #### C DP, BMP #### [facility] [address] [place], [place] [phone] Home Improvement Advisor: Wang Day MD RBC (Bld) [#/Vol] 4.57 10*6/uL Normal 3.95-5.11 [facility] Comment on above: Performed By: #### C DP, BMP #### [address] [place] [address] Home Improvement Advisor: Wang Day MD WBC (Bld) [#/Vol] 8.9 10*3/uL Normal 3.5-11.3 [facility] Comment on above: Performed By: #### C DP, BMP #### [address] [place], [place] [phone] Home Improvement Advisor: Wang Day MD Auto Diff Performed NOT REPORTED Normal [facility] Comment on above: Performed By: #### C DP, BMP #### [address] [place], [place] [phone] Home Improvement Advisor: Wang Day MD Platelets (Bld) [#/Vol] NOT REPORTED Normal [facility] Comment on above: Performed By: #### C DP, BMP #### [address] [place] [address] Home Improvement Advisor: Wang Day MD RBC morphology finding Nom (Bld) NOT REPORTED Normal [facility] Comment on above: Performed By: #### C DP, BMP #### [address] [place] [address] Home Improvement Advisor: Wang Day MD WBC Morphology NOT REPORTED Normal [facility] Comment on above: Performed By: #### C DP, BMP #### [address] [place] [address] Home Improvement Advisor: Wang Day MD CARDIAC STRESS TEST 2018 CARDIAC STRESS TEST [address] [place] [address] CARDIAC STRESS TEST PATIENT NAME: FABRIZIO ECKERT : 1965 MED REC NO: [id number] ROOM: ACCOUNT NO: [id number] ADMIT DATE: 12/05/2018 PROVIDER: Rhett Naqvi CARDIOVASCULAR [...] BETTE/CANDIS_ALEX Doc#: Unknown CC: Laura Ramirez Normal [facility] CBC with Diffon 10-23-2018 Abs. Basophil 0.04 k/uL Normal 0.00-0.20 [facility] Comment on above: Performed By: #### C DP, CPBILC, LIPR, TSHX #### [facility] [address] [place] [address] Home Improvement Advisor: Wang Day MD Abs.Imm.Granulocyte <0.03 Normal 0.00-0.30 [facility] Comment on above: Performed By: #### C DP, CPBILC, LIPR, TSHX #### [facility] [address] [place] [phone] Home Improvement Advisor: Wang Day MD Abs.Neutrophil (Seg) 3.34 k/uL Normal 1.50-8.10 [facility] Comment on above: Performed By: #### C DP, CPBILC, LIPR, TSHX #### [facility] [address] [place], [place] [address] Home Improvement Advisor: Wang Day MD Basophils/100 WBC (Bld) 1 % Normal 0-2 [facility] Comment on above: Performed By: #### C DP, CPBILC, LIPR, TSHX #### [address] [place], [place] [address] Home Improvement Advisor: Wang Day MD Eosinophils (Bld) [#/Vol] 0.14 10*3/uL Normal 0.00-0.44 [facility] Comment on above: Performed By: #### C DP, CPBILC, LIPR, TSHX #### [facility] [address] [place] [address] Home Improvement Advisor: Wang Day MD Eosinophils/100 WBC (Bld) 2 % Normal 1-4 [facility] Comment on above: Performed By: #### C DP, CPBILC, LIPR, TSHX #### [facility] [address] [place], [facility] Home Improvement Advisor: Wang Day MD Erythrocyte distribution width (RBC) [Ratio] 13.1 % Normal 11.8-14.4 [facility] Comment on above: Performed By: #### C DP, CPBILC, LIPR, TSHX #### [facility] [address] [place], [place] [address] Home Improvement Advisor: Wang Day MD Hematocrit (Bld) [Volume fraction] 45.3 % Normal 36.3-47.1 [facility] Comment on above: Performed By: #### C DP, CPBILC, LIPR, TSHX #### [facility] [address] [place] [address] Home Improvement Advisor: Wang Day MD Hemoglobin (Bld) [Mass/Vol] 14.8 g/dL Normal 11.9-15.1 [facility] Comment on above: Performed By: #### C DP, CPBILC, LIPR, TSHX #### [facility] [address] [place], [place] [address] Home Improvement Advisor: Wang Day MD Immature granulocytes (Bld) [#/Vol] 0 % Normal 0 [facility] Comment on above: Performed By: #### C DP, CPBILC, LIPR, TSHX #### [facility] [address] [place], [place] [address] Home Improvement Advisor: Wang Day MD Lymphocytes (Bld) [#/Vol] 1.87 10*3/uL Normal 1.10-3.70 [facility] Comment on above: Performed By: #### C DP, CPBILC, LIPR, TSHX #### [facility] [address] [place], [facility] Home Improvement Advisor: Wang Day MD Lymphocytes/100 WBC (Bld) 33 % Normal 24-43 [facility] Comment on above: Performed By: #### C DP, CPBILC, LIPR, TSHX #### [facility] [address] [place] [address] Home Improvement Advisor: Wang Day MD MCH (RBC) [Entitic mass] 30.9 pg Normal 25.2-33.5 [facility] Comment on above: Performed By: #### C DP, CPBILC, LIPR, TSHX #### [facility] [address] [place], [place] [phone] Home Improvement Advisor: Wang Day MD MCHC (RBC) [Mass/Vol] 32.7 g/dL Normal 28.4-34.8 [facility] Comment on above: Performed By: #### C DP, CPBILC, LIPR, TSHX #### [address] [place] [phone] Home Improvement Advisor: Wang Day MD MCV (RBC) [Entitic vol] 94.6 fL Normal 82.6-102.9 [facility] Comment on above: Performed By: #### C DP, CPBILC, LIPR, TSHX #### [address] [place] [address] Home Improvement Advisor: Wang Day MD Monocytes (Bld) [#/Vol] 0.34 10*3/uL Normal 0.10-1.20 [facility] Comment on above: Performed By: #### C DP, CPBILC, LIPR, TSHX #### [address] [place] [address] Home Improvement Advisor: Wang Day MD Monocytes/100 WBC (Bld) 6 % Normal 3-12 [facility] Comment on above: Performed By: #### C DP, CPBILC, LIPR, TSHX #### [facility] [address] [place], [place] [address]83 Home Improvement Advisor: Wang Day MD Neutrophil (Seg) 58 % Normal 36-65 [facility] Comment on above: Performed By: #### C DP, CPBILC, LIPR, TSHX #### [facility] [address] [place], [place] [address] Home Improvement Advisor: Wang Day MD NRBC Automated 0.0 per 100 WBC Normal 0.0 [facility] Comment on above: Performed By: #### C DP, CPBILC, LIPR, TSHX #### [facility] [address] [place], [place] [address] Home Improvement Advisor: Wang Day MD Platelet mean volume (Bld) [Entitic vol] 10.2 fL Normal 8.1-13.5 [facility] Comment on above: Performed By: #### C DP, CPBILC, LIPR, TSHX #### [address] [place], [place] [address] Home Improvement Advisor: Wang Day MD Platelets (Bld) [#/Vol] 297 10*3/uL Normal 138-453 [facility] Comment on above: Performed By: #### C DP, CPBILC, LIPR, TSHX #### [address] [place], [facility] Home Improvement Advisor: Wang Day MD RBC (Bld) [#/Vol] 4.79 10*6/uL Normal 3.95-5.11 [facility] Comment on above: Performed By: #### C DP, CPBILC, LIPR, TSHX #### [facility] [address] [place], [facility] Home Improvement Advisor: Wang Day MD WBC (Bld) [#/Vol] 5.7 10*3/uL Normal 3.5-11.3 [facility] Comment on above: Performed By: #### C DP, CPBILC, LIPR, TSHX #### [facility] [address] [place], [facility] Home Improvement Advisor: Wang Day MD Auto Diff Performed NOT REPORTED Normal [facility] Comment on above: Performed By: #### C DP, CPBILC, LIPR, TSHX #### [facility] [address] [place], [place] [phone] Home Improvement Advisor: Wang Day MD Platelets (Bld) [#/Vol] NOT REPORTED Normal [facility] Comment on above: Performed By: #### C DP, CPBILC, LIPR, TSHX #### [facility] [address] [place], [place] [phone] Home Improvement Advisor: Wang Day MD RBC morphology finding Nom (Bld) NOT REPORTED [facility] Comment on above: Performed By: #### C DP, CPBILC, LIPR, TSHX #### [facility] [address] [place], [place] [phone] Home Improvement Advisor: Wang Day MD WBC Morphology NOT REPORTED Normal [facility] Comment on above: Performed By: #### C DP, CPBILC, LIPR, TSHX #### [facility] [address] [place], [place] [phone] Home Improvement Advisor: Wang Day MD [facility] 10-23-2018 Cholesterol [Mass/Vol] 218 mg/dL High (<200) [facility] Work Phone: Comment on above: Note: Cholesterol Gu idelines: <200 Desirable 200-240 Borderline >240 Undesirable Responsible Observer: JOSIE MCCRACKEN (1831) Triglyceride [Mass/Vol] 131 mg/dL (<150) [facility] Work Phone: Comment on above: Note: Triglyceride G uidelines: <150 Desirable 150-199 Borderline 200-499 High >499 Very high Based on AHA Guidelines for fasting triglyceride, February 2012. Responsible Observer: JOSIE MCCRACKEN (1831) Comp Metab w/Bili Pron 10-23 (cont.) Normal [facility] [place] Comment on above: Result Comment: Aver age GFR for 50-59 years old: 93 mL/min/1.73sq m Chronic Kidney Disease: <60 mL/min/1.73sq m Kidney failure: <15 mL/min/1.73sq m eGFR calculated using average adult body mass. Additional eGFR calculator available at: http://www.[employer]/multiple_crcl_2012.htm Performed By: #### C DP, CPBILC, LIPR, TSHX #### [facility] [address] [place], [place] [phone] Home Improvement Advisor: Wang Day MD Albumin [Mass/Vol] 4.2 g/dL Normal 3.5-5.2 [facility] [place] Comment on above: Performed By: #### C DP, CPBILC, LIPR, TSHX #### [facility] [address] [place], [place] [phone] Home Improvement Advisor: Wang Day MD Albumin/Globulin [Mass ratio] 1.2 {ratio} Normal 1.0-2.5 [facility] [place] Comment on above: Performed By: #### C DP, CPBILC, LIPR, TSHX #### [facility] [address] [place], [place] [phone] Home Improvement Advisor: Wang Day MD Alkaline Phos 101 U/L Normal 35-104 [facility] [place] Comment on above: Performed By: #### C DP, CPBILC, LIPR, TSHX #### [facility] [address] [place], [place] [phone] Home Improvement Advisor: Wang Day MD ALT [Catalytic activity/Vol] 15 U/L Normal 5-33 [facility] [place] Comment on above: Performed By: #### C DP, CPBILC, LIPR, TSHX #### [facility] [address] [place], [place] [phone] Home Improvement Advisor: Wang Day MD Anion gap [Moles/Vol] 12 mmol/L Normal 9-17 [facility] [place] Comment on above: Performed By: #### C DP, CPBILC, LIPR, TSHX #### [facility] [address] [place], [place] [phone] Home Improvement Advisor: Wang Day MD AST [Catalytic activity/Vol] 15 U/L Normal <32 [facility] [place] Comment on above: Performed By: #### C DP, CPBILC, LIPR, TSHX #### [facility] [address] [place], [place] [phone] Home Improvement Advisor: Wang Day MD Bilirubin Ql (U) 0.24 mg/dL Low 0.3-1.2 [facility] [place] Comment on above: Performed By: #### C DP, CPBILC, LIPR, TSHX #### [facility] [address] [place], [place] [phone] Home Improvement Advisor: Wang Day MD Bilirubin, Indirect CANNOT BE CALCULATED Normal 0.00-1 .00 [facility] [place] Comment on above: Performed By: #### C DP, CPBILC, LIPR, TSHX #### [facility] [address] [place], [place] [phone] Home Improvement Advisor: Wang Day MD Bilirubin.direct [Mass/Vol] mg/dL Normal <0.31 [facility] [place] Comment on above: Performed By: #### C DP, CPBILC, LIPR, TSHX #### [facility] [address] [place], [place] [phone] Home Improvement Advisor: Wang Day MD Calcium [Mass/Vol] 9.3 mg/dL Normal 8.6-10.4 [facility] [place] Comment on above: Performed By: #### C DP, CPBILC, LIPR, TSHX #### [facility] [address] [place], [place] [phone] Home Improvement Advisor: Wang Day MD Chloride [Moles/Vol] 102 mmol/L Normal 98-107 [facility] [place] Comment on above: Performed By: #### C DP, CPBILC, LIPR, TSHX #### [facility] [address] [place], [place] [phone] Home Improvement Advisor: Wang Day MD CO2 [Moles/Vol] 27 mmol/L Normal 20-31 [facility] [place] Comment on above: Performed By: #### C DP, CPBILC, LIPR, TSHX #### [facility] [address] [place], [place] [phone] Home Improvement Advisor: Wang Day MD Creatinine [Mass/Vol] 0.64 mg/dL Normal 0.50-0.90 [facility] [place] Comment on above: Performed By: #### C DP, CPBILC, LIPR, TSHX #### [facility] [address] [place], [place] [phone] Home Improvement Advisor: Wang Day MD GFR, Amer >60 Normal >60 [facility] [place] Comment on above: Performed By: #### C DP, CPBILC, LIPR, TSHX #### [facility] [address] [place], [place] [phone] Home Improvement Advisor: Wang Day MD GFR,non Amer >60 Normal >60 [facility] [place] Comment on above: Performed By: #### C DP, CPBILC, LIPR, TSHX #### [address] [place], [place] [phone] Home Improvement Advisor: Wang Day MD Glucose [Mass/Vol] 123 mg/dL High 70-99 [facility] [place] Comment on above: Performed By: #### C DP, CPBILC, LIPR, TSHX #### [facility] [address] [place] [address] Home Improvement Advisor: Wang Day MD Potassium [Moles/Vol] 4.6 mmol/L Normal 3.7-5.3 [facility] [place] Comment on above: Performed By: #### C DP, CPBILC, LIPR, TSHX #### [facility] [address] [place] [address] Home Improvement Advisor: Wang Day MD Protein [Mass/Vol] 7.6 g/dL Normal 6.4-8.3 [facility] [place] Comment on above: Performed By: #### C DP, CPBILC, LIPR, TSHX #### [facility] [address] [place] [address] Home Improvement Advisor: Wang Day MD Sodium [Moles/Vol] 141 mmol/L Normal 135-144 [facility] [place] Comment on above: Performed By: #### C DP, CPBILC, LIPR, TSHX #### [facility] [address] [place] [address] Home Improvement Advisor: Wang Day MD Staging: Normal [facility] [place] Comment on above: Result Comment: Stag e 1: Some kidney damage normal GFR Stage 2: Mild kidney damage GFR 60-89 Stage 3: Moderate kidney damage GFR 30-59 Stage 4: Severe kidney damage GFR 15-29 Stage 5: Severe kidney damage GFR <15 ESRD - chronic treatment by dialysis or transplant Performed By: #### C DP, CPBILC, LIPR, TSHX #### [address] [place] [address] Home Improvement Advisor: Wang Day MD Urea nitrogen [Mass/Vol] 15 mg/dL Normal 6-20 [facility] [place] Comment on above: Performed By: #### C DP, CPBILC, LIPR, TSHX #### [facility] [address] [place] [address] Home Improvement Advisor: Wang Day MD Hematologyon 10-23-2018 Basophils/100 WBC (Bld) 1 % (0-2) [facility] Work Phone: Comment on above: Note: Responsible Ob applique cutter: XNT AUTOFILE (0561) Eosinophils (Bld) [#/Vol] 0.14 10*3/uL (0.00-0.44) [facility] Work Phone: Comment on above: Note: Responsible Ob applique cutter: XNT AUTOFILE (3019) Eosinophils/100 WBC (Bld) 2 % (1-4) [facility] Work Phone: Comment on above: Note: Responsible Ob applique cutter: XNT AUTOFILE (3019) Hematocrit (Bld) [Volume fraction] 45.3 % (36.3-47.1) [facility] Work Phone: Comment on above: Note: Responsible Ob applique cutter: XNT AUTOFILE (3019) Hemoglobin (Bld) [Mass/Vol] 14.8 g/dL (11.9-15.1) [facility] Work Phone: Comment on above: Note: Responsible Ob applique cutter: XNT AUTOFILE (3019) Lymphocytes (Bld) [#/Vol] 1.87 10*3/uL (1.10-3.70) [facility] Work Phone: Comment on above: Note: Responsible Ob applique cutter: XNT AUTOFILE (3019) Lymphocytes/100 WBC (Bld) 33 % (24-43) [facility] Work Phone: Comment on above: Note: Responsible Ob applique cutter: XNT AUTOFILE (3019) MCH (RBC) [Entitic mass] 30.9 pg (25.2-33.5) [facility] Work Phone: Comment on above: Note: Responsible Ob applique cutter: XNT AUTOFILE (3019) MCV (RBC) [Entitic vol] 94.6 fL (82.6-102.9) [facility] Work Phone: Comment on above: Note: Responsible Ob applique cutter: XNT AUTOFILE (3019) Monocytes (Bld) [#/Vol] 0.34 10*3/uL (0.10-1.20) [facility] Work Phone: Comment on above: Note: Responsible Ob applique cutter: XNT AUTOFILE (3019) Monocytes/100 WBC (Bld) 6 % (3-12) [facility] Work Phone: Comment on above: Note: Responsible Ob applique cutter: XNT AUTOFILE (9) Platelets (Bld) [#/Vol] NOT REPORTED [facility] Work Phone: Platelets (Bld) [#/Vol] 297 10*3/uL (138-453) [facility] Work Phone: Comment on above: Note: Responsible Ob applique cutter: XNT AUTOFILE (3018) RBC (Bld) [#/Vol] 4.79 10*6/uL (3.95-5.11) [facility] Work Phone: Comment on above: Note: Responsible Ob applique cutter: XNT AUTOFILE (3018) RBC morphology finding Nom (Bld) NOT REPORTED [facility] Work Phone: WBC (Bld) [#/Vol] 0.0 per_100_WBC (0.0) [facility] Work Phone: Comment on above: Note: Responsible Ob applique cutter: XNT AUTOFILE (3018) WBC (Bld) [#/Vol] 5.7 10*3/uL (3.5-11.3) [facility] Work Phone: Comment on above: Note: Responsible Ob applique cutter: XNT AUTOFILE (3018) Lipid Profileon 10-23-2018 Cholesterol [Mass/Vol] 218 mg/dL High <200 [facility] [place] Comment on above: Result Comment: Cholesterol Guidelines: <200 Desirable 200-240 Borderline >240 Undesirable Performed By: #### C DP, CPBILC, LIPR, TSHX #### [facility] [address] [place] [address] Home Improvement Advisor: Wang Day MD Cholesterol in HDL [Mass/Vol] 57 mg/dL Normal >40 [facility] [place] Comment on above: Result Comment: HDL Guidelines: <40 Undesirable 40-59 Borderline >59 Desirable Performed By: #### C DP, CPBILC, LIPR, TSHX #### [facility] [address] [place], [place] [phone] Home Improvement Advisor: Wang Day MD Cholesterol in LDL [Mass/Vol] 135 mg/dL High 0-130 [facility] [place] Comment on above: Result Comment: LDL Guidelines: <100 Desirable 100-129 Near to/above Desirable 130-159 Borderline >159 Undesirable Direct (measured) LDL and calculated LDL are not interchangeable tests. Performed By: #### C DP, CPBILC, LIPR, TSHX #### [facility] [address] [place], [place] [phone] Home Improvement Advisor: Wang Day MD Cholesterol.total/C holesterol in HDL [Mass ratio] 3.8 {ratio} Normal <5 [facility] [place] Comment on above: Performed By: #### C DP, CPBILC, LIPR, TSHX #### [facility] [address] [place] [address] Home Improvement Advisor: Wang Day MD Triglyceride [Mass/Vol] 131 mg/dL Normal <150 [facility] [place] Comment on above: Result Comment: Triglyceride Guidelines: <150 Desirable 150-199 Borderline 200-499 High >499 Very high Based on AHA Guidelines for fasting triglyceride, February 2012. Performed By: #### C DP, CPBILC, LIPR, TSHX #### [facility] [address] [place] [address] Home Improvement Advisor: Wang Day MD Cholesterol in VLDL [Mass/Vol] NOT REPORTED Normal 30 [facility] [place] Comment on above: Performed By: #### C DP, CPBILC, LIPR, TSHX #### [facility] [address] [place] [address] Home Improvement Advisor: Wang Day MD Metabolic Panelon 10-23-2018 Albumin [Mass/Vol] 4.2 g/dL (3.5-5.2) [facility] Work Phone: Comment on above: Note: Responsible Ob applique cutter: JOSIE Nichols1831) ALT [Catalytic activity/Vol] 15 U/L (5-33) [facility] Work Phone: Comment on above: Note: Responsible Ob applique cutter: JOSIE CHRISS-LILGE (1831) Anion gap [Moles/Vol] 12 mmol/L (9-17) [facility] Work Phone: Comment on above: Note: Responsible Ob applique cutter: JOSIE VEShashankDOS-LILGE (1831) AST [Catalytic activity/Vol] 15 U/L (<32) [facility] Work Phone: Comment on above: Note: Responsible Ob applique cutter: JOSIE CHRISS-LILGE (1831) Bilirubin [Mass/Vol] 0.24 mg/dL Low (0.3-1.2) [facility] Work Phone: Comment on above: Note: Responsible Ob applique cutter: JOSIE CHRISS-LILCURTIS (1831) Bilirubin.direct [Mass/Vol] mg/dL (<0.31) [facility] Work Phone: Comment on above: Note: Responsible Ob applique cutter: JOSIE CHRISS-LILCURTIS (1831) Calcium [Mass/Vol] 9.3 mg/dL (8.6-10.4) [facility] Work Phone: Comment on above: Note: Responsible Ob applique cutter: JOSIE CHRISS-LILCURTIS (1831) Chloride [Moles/Vol] 102 mmol/L (98-107) [facility] Work Phone: Comment on above: Note: Responsible Ob applique cutter: JOSIE VEZDOS-LILGE (1831) CO2 [Moles/Vol] 27 mmol/L (20-31) [facility] Work Phone: Comment on above: Note: Responsible Ob applique cutter: JOSIE PAVITHRAZDOS-LILGE (1831) Creatinine [Mass/Vol] 0.64 mg/dL (0.50-0.90) [facility] Work Phone: Comment on above: Note: Responsible Ob applique cutter: JOSIE MCCRACKEN (1831) Glucose [Mass/Vol] 123 mg/dL High (70-99) [facility] Work Phone: Comment on above: Note: Responsible Ob applique cutter: JOSIE MCCRACKEN (1831) Potassium [Moles/Vol] 4.6 mmol/L (3.7-5.3) [facility] Work Phone: Comment on above: Note: Responsible Ob applique cutter: JOSIE MCCRACKEN (1831) Protein [Mass/Vol] 7.6 g/dL (6.4-8.3) [facility] Work Phone: Comment on above: Note: Responsible Ob applique cutter: JOSIE MCCRACKEN (1831) Sodium [Moles/Vol] 141 mmol/L (135-144) [facility] Work Phone: Comment on above: Note: Responsible Ob applique cutter: JOSIE MCCRACKEN (1831) Urea nitrogen [Mass/Vol] 15 mg/dL (6-20) [facility] Work Phone: Comment on above: Note: Responsible Ob applique cutter: JOSIE MCCRACKEN (1831) Otheron 10-23-2018 (cont.) See Note [facility] Work Phone: Comment on above: Note: Average GFR fo r 50-59 years old: 93 mL/min/1.73sq mChronic Kidney Disease: <60 mL/min/1.73sq mKidney failure: <15 mL/min/1.73sq m eGFR calculated using average adult body mass. Additional eGFR calculator available at: http://www.[employer]com/multiple_crcl_2011.htm Responsible Observer: JOSIE MCCRACKEN (1831) Abs. Basophil 0.04 k/uL (0.00-0.20) [facility] Work Phone: Comment on above: Note: Responsible Ob applique cutter: XNT AUTOFILE (3019) Abs.Imm.Granulocyte <0.03 k/uL (0.00-0.30) [facility] Work Phone: Comment on above: Note: Responsible Ob applique cutter: XNT AUTOFILE (3019) Abs.Neutrophil (Seg) 3.34 k/uL (1.50-8.10) [facility] Work Phone: Comment on above: Note: Responsible Ob applique cutter: XNT AUTOFILE (3019) Albumin/Glob Ratio 1.2 (1.0-2.5) [facility] Work Phone: Comment on above: Note: Responsible Ob applique cutter: JOSIE MCCRACKEN (1831) Alkaline Phos 101 U/L (35-104) [facility] Work Phone: Comment on above: Note: Responsible Ob applique cutter: JOSIE MCCRACKEN (1831) Auto Diff Performed NOT REPORTED [facility] Work Phone: Bilirubin, Indirect CANNOT BE CALCULATED mg/dL (0.00-1.00) [facility] Work Phone: Comment on above: Note: Responsible Ob applique cutter: JOSIE MCCRACKEN (1831) Cholesterol,HDL 57 mg/dL (>40) [facility] Work Phone: Comment on above: Note: HDL Guidelines : <40 Undesirable 40-59 Borderline >59 Desirable Responsible Observer: JOSIE MCCRACKEN (1831) Cholesterol,LDL 135 mg/dL High (0-130) [facility] Work Phone: Comment on above: Note: LDL Guidelines : <100 Desirable 100-129 Near to/above Desirable 130-159 Borderline >159 Undesirable Direct (measured) LDL and calculated LDL are not interchangeable tests.Responsible Observer: JOSIE MCCRACKEN (1831) Cholesterol,VLDL NOT REPORTED mg/dL (1-30) [facility] Work Phone: Cholesterol.total/C holesterol in HDL [Mass ratio] 3.8 {ratio} (<5) [facility] Work Phone: Comment on above: Note: Responsible Ob applique cutter: JOSIE MCCRACKEN (1831) Erythrocyte distribution width (RBC) [Ratio] 13.1 % (11.8-14.4) [facility] Work Phone: Comment on above: Note: Responsible Ob applique cutter: XNT AUTOFILE (3018) GFR, Amer >60 mL/min (>60) [facility] Work Phone: Comment on above: Note: Responsible Ob applique cutter: JOSIE MCCRACKEN (1831) GFR,non Amer >60 mL/min (>60) [facility] Work Phone: Comment on above: Note: Responsible Ob applique cutter: JOSIE MCCRACKEN (1831) Immature granulocytes (Bld) [#/Vol] 0 % (0) [facility] Work Phone: Comment on above: Note: Responsible Ob applique cutter: XNT AUTOFILE (3018) MCHC (RBC) [Mass/Vol] 32.7 g/dL (28.4-34.8) [facility] Work Phone: Comment on above: Note: Responsible Ob applique cutter: XNT AUTOFILE (3018) Performing Lab: see note [facility] Work Phone: Comment on above: Note: [facility] [address] [place] [address] Platelet mean volume (Bld) [Entitic vol] 10.2 fL (8.1-13.5) [facility] Work Phone: Comment on above: Note: Responsible Ob applique cutter: XNT AUTOFILE (3018) Reported Physicians See Note [facility] Work Phone: Comment on above: Note: Reported Physi cians:Ordering: Laura Ramireztending: Eloy RamirezaReferring: Laura Ramirez Segmented neutrophils/100 WBC (Bld) 58 % (36-65) [facility] Work Phone: Comment on above: Note: Responsible Ob applique cutter: XNT AUTOFILE (2887) Staging: See Note [facility] Work Phone: Comment on above: Note: Stage 1: Some kidney damage normal GFRStage 2: Mild kidney damage GFR 60-89Stage 3: Moderate kidney damage GFR 30-59Stage 4: Severe kidney damage GFR 15-29Stage 5: Severe kidney damage GFR <15ESRD - chronic treatment by dialysis or transplantResponsible Observer: JOSIE MCCRACKEN (1831) Thyroid Stim. Horm. 1.27 mIU/L (0.30-5.00) [facility] Work Phone: Comment on above: Note: Responsible Ob applique cutter: JOSIE MCCRACKEN (1831) WBC Morphology NOT REPORTED [facility] Work Phone: TSH w/reflex to FT4on 2018 TSH Qn 1.27 m[IU]/L Normal 0.30-5.00 [facility] [place] Comment on above: Performed By: #### C DP, CPBILC, LIPR, TSHX #### [facility] [address] [place] [address] Home Improvement Advisor: Wang Day MD Vital Signs Date Time Vital Sign Value Performing Clinician Facility 07-03-2020 14:59-0500 BMI (Body Mass Index) 36.4 kg/m2 [facility] Work Phone: 07-03-2020 14:59-0500 Body Temperature 96.5 [degF] [facility] Work Phone: 07-03-2020 14:59-0500 Body weight 99.34 kg [facility] Work Phone: 07-03-2020 14:59-0500 BP Diastolic 72 mm[Hg] [facility] Work Phone: 07-03-2020 14:59-0500 BP Systolic 122 mm[Hg] [facility] Work Phone: 07-03-2020 14:59-0500 BSA (Body Surface Area) 2.06 m2 [facility] Work Phone: 07-03-2020 14:59-0500 Height 165.1 cm [facility] Work Phone: 07-03-2020 14:59-0500 Pulse (Heart Rate) 91 /min [facility] Work Phone: 07-03-2020 14:59-0500 Pulse Oximetry 98 % [facility] Work Phone: 07-03-2020 14:59-0500 Respiratory Rate 18 /min [facility] Work Phone: 06-27-2020 16:08-0500 BMI (Body Mass Index) 33.3 kg/m2 [facility] Work Phone: 06-27-2020 16:08-0500 Body weight 90.72 kg [facility] Work Phone: 06-27-2020 16:08-0500 BSA (Body Surface Area) 1.98 m2 [facility] Work Phone: 06-27-2020 16:08-0500 Height 165.1 cm [facility] Work Phone: 04-30-2020 17:49-0500 BMI (Body Mass Index) 34.3 kg/m2 [facility] Work Phone: 04-30-2020 17:49-0500 Body weight 90.72 kg [facility] Work Phone: 04-30-2020 17:49-0500 BSA (Body Surface Area) 1.96 m2 [facility] Work Phone: 04-30-2020 17:49-0500 Height 162.56 cm [facility] Work Phone: 11-16-2019 10:07-0400 BMI (Body Mass Index) 34.3 kg/m2 [facility] Work Phone: Comment on above: per patient report 11-16-2019 10:07-0400 Body weight 90.72 kg [facility] Work Phone: Comment on above: per patient report 11-16-2019 10:07-0400 BSA (Body Surface Area) 1.96 m2 [facility] Work Phone: Comment on above: per patient report 11-16-2019 10:07-0400 Height 162.56 cm [facility] Work Phone: Comment on above: per patient report 09-24-2019 13:33-0400 BMI (Body Mass Index) 33.7 kg/m2 [facility] Work Phone: Comment on above: per pt report 09-24-2019 13:33-0400 Body weight 86.18 kg [facility] Work Phone: Comment on above: per pt report 09-24-2019 13:33-0400 BSA (Body Surface Area) 1.89 m2 [facility] Work Phone: Comment on above: per pt report 09-24-2019 13:33-0400 Height 160.02 cm [facility] Work Phone: Comment on above: per pt report 04-25-2019 11:12-0500 BMI (Body Mass Index) 32.3 kg/m2 Laura Sean [facility] Work Phone: 04-25-2019 11:12-0500 Body Temperature 97.6 [degF] [facility] 04-25-2019 11:12-0500 Body weight 88.17 kg [facility] Work Phone: 04-25-2019 11:12-0500 BP Diastolic 82 mm[Hg[facility] 04-25-2019 11:12-0500 BP Systolic 128 mm[Hg] [facility] Work Phone: 04-25-2019 11:12-0500 BSA (Body Surface Area) 1.95 m2 [facility] Work Phone: 04-25-2019 11:12-0500 Flow Rate 0 L/min [facility] Work Phone: 04-25-2019 11:12-0500 Height 165.1 cm [facility] Work Phone: 04-25-2019 11:12-0500 Inhaled Oxygen Concentration 21 % [facility] Work Phone: 04-25-2019 11:12-0500 Pulse (Heart Rate) 75 /min Laura Penfield [facility] Work Phone: 04-25-2019 11:12-0500 Pulse Oximetry 99 % [facility] Work Phone: 04-25-2019 11:12-0500 Respiratory Rate 18 /min [facility] Work Phone: 09-14-2018 11:34-0400 BMI (Body Mass Index) 32.8 kg/m2 [facility]: 09-14-2018 11:34-0400 Body Temperature 99.1 [degF] [facility] Work Phone: 09-14-2018 11:34-0400 Body weight 89.36 kg [facility] Work Phone: 09-14-2018 11:34-0400 BP Diastolic 72 mm[Hg] [facility] Work Phone: 09-14-2018 11:34-0400 BP Systolic 134 mm[Hg] [facility] Work Phone: 09-14-2018 11:34-0400 BSA (Body Surface Area) 1.97 m2 [facility] Work Phone: 09-14-2018 11:34-0400 Flow Rate 0 L/min [facility] Work Phone: 09-14-2018 11:34-0400 Height 165.1 cm [facility] Work Phone: 09-14-2018 11:34-0400 Inhaled Oxygen Concentration 21 % [facility] Work Phone: 09-14-2018 11:34-0400 Pulse (Heart Rate) 80 /min [facility] Work Phone: 09-14-2018 11:34-0400 Pulse Oximetry 98 % [facility] Work Phone: 09-14-2018 11:34-0400 Respiratory Rate 20 /min [facility] Work Phone: Encounters Encounter Date Encounter Type Care Provider Facility Start: 05-19-2023 End: 05-19-2023 ambulatory SHAIKH JONO Not Available Start: 01-31-2023 End: 02-01-2023 ambulatory Calin ESTEVEZ Facility:[facility] Start: 04-28-2022 End: 04-28-2022 ambulatory PAL ANDERSON Facility:[facility] Start: 02-17-2022 End: 02-18-[address] FABIANA CAPONE Facility:[facility] Start: 11-17-2021 End: 11-18-2021 ambulatory SHAIKH Sobeida VANGRADHA Facility:[facility] Start: 10-14-2021 End: 10-14-2021 ambulatory PAL ANDERSON Facility:[facility] Start: 10-13-2021 End: 10-13-2021 ambulatory Sobeida JONO Facility:[facility] Start: 09-26-2020 End: 01-19-2022 ambulatory None Provider Facility:[facility] Start: 07-03-2020 End: 07-03-2020 Established patient Laverne Garrett Work Phone: [facility] Work Phone: Start: 07-03-2020 End: 07-03-2020 Established patient Suzi Khanna Work Phone: [facility] Work Phone: Start: 06-27-2020 End: 06-27-2020 Telemedicine consultation with patient Suzi Khanna Work Phone: [facility] Work Phone: Start: 04-30-2020 End: 04-30-2020 General Jo Velazquez Work Phone: [facility] Work Phone: Start: 04-30-2020 End: 04-30-2020 Telemedicine consultation with patient Thalia Block Work Phone: [facility] Work Phone: Start: 11-16-2019 End: 11-16-2019 Telemedicine consultation with patient Suzi Khanna Work Phone: [facility] Work Phone: Start: 09-24-2019 End: 09-24-2019 Telemedicine consultation with patient Suzi Khanna Work Phone: [facility] Work Phone: Start: 05-24-2019 End: 05-24-2019 Patient encounter procedure Carlitos Summers Work Phone: [facility] Work Phone: Start: 05-18-2019 End: 05-18-2019 Patient encounter procedure Maulik Geiger Work Phone: [facility] Work Phone: Start: 04-25-2019 End: 04-28-2019 Patient encounter procedure LAURA Nichols [facility] Start: 04-25-2019 End: 04-25-2019 Established patient Princess Blackmon Work Phone: Dr.Gene Langley [facility] Work Phone: Start: 04-25-2019 End: 04-25-2019 Patient encounter procedure Maulik Geiger Work Phone: [facility] Work Phone: Start: 04-18-2019 End: 04-18-2019 Patient encounter procedure Laura Ramirez Work Phone: [facility] Work Phone: Start: 04-17-2019 Comprehensve oral evaluation Carlitos uSmmers Work Phone: [facility] Work Phone: Start: 04-17-2019 End: 04-17-2019 Emergency department patient visit Carlitos Summers Work Phone: [facility] Work Phone: Start: 12-17-2018 End: 12-18-2018 Emergency department patient visit LAURA A [facility] Start: 12-12-2018 End: 12-13-2018 Patient encounter procedure KAYLA FREEMAN [facility] Start: 12-08-2018 End: 12-09-2018 Patient encounter procedure [facility] Start: 12-05-2018 End: 12-06-2018 Patient encounter procedure [facility] Start: 10-23-2018 End: 10-24-2018 Patient encounter procedure LAURA Nichols [facility] Start: 09-14-2018 End: 09-14-2018 New patient Laura Ramirez Work Phone: [facility] Work Phone: Procedures Date Procedure Procedure [...] 05-24-2019 Intraor complete keke m series Carlitos Maysjonatohn Work Phone: Start: 04-25-2019 Radex hand minimum 3 views RHETT NAQVI Start: 04-25-2019 Psychotherapy w/judith ent 30 minutes Princess Blackmon Work Phone: Start: 04-25-2019 Pt tobacco screen rcvd tlk Laura Penfield Work Phone: Start: 04-17-2019 Panoramic image Carlitos Maysjonathon Work Phone: Start: 12-17-2018 Blood count complete auto&auto difrntl wbc RHETT AHMAD Start: 12-17-2018 C-reactive protein RHETT STEINBERGMAD Start: 12-17-2018 Urnls dip stick/tabl et reagent auto microscopy ALI AHMAD Start: 12-13-2018 AMB REFERRAL TO CARD IAC REHAB KAYLA FREEMAN Start: 12-13-2018 DISCHARGE PATIENT KAYLA FREEMAN Start: 12-13-2018 DIET CARDIAC KAYLA CUNNINHGAM UR Start: 12-13-2018 LOG HANDLER REPORT KAYLA SHAH Start: 12-13-2018 INITIATE OXYGEN [...] cath w/njx l ventriculog img s&i KAYLA FREEMNA Start: 12-12-2018 VERIFY INFORMED CONSENT KAYLA FREEMAN Start: 12-12-2018 LOG HANDLER REPORT KAYLA SHAH Start: 12-08-2018 Basic metabolic [...] Start: 09-14-2018 Ligation of fallopian tube Laura Sean Start: 09-14-2018 past medical/surgica l history [use for free text] Laura Sean Start: 09-14-2018 Surgical procedure Cynt paulapilo Ramirez Plan of Treatment Date Care Activity Detail Author Start: 06-30-2020 Medical Establ ished Patient [facility] Work Phone: Start: 05-30-2020 _SARS-CoV-2 COVID19 ariel t [facility] Work Phone: Start: 05-15-2020 Telemedicine E stablisted Patient [facility] Work Phone: Start: 11-17-2019 Stool Kit Sharon Ross se [facility] Work Phone: Start: 05-29-2019 Medical Establ ished Patient [facility] Work Phone: Start: 05-25-2019 XR Hand 3 Views ([id number]) [facility] Work Phone: Start: 05-10-2019 Dental Miscellaneous [facility] Work Phone: Start: 04-25-2019 [facility] Work Phone: Comment on above: Note: Please make a referral to:Deformed thick great toe nail, nail fungus Start: 09-14-2018 Cardiology [facility] Work Phone: Comment on above: Note: Please make a referral to: Payers Date Payer Category Payer Unknown [id number] 1965 Unknown [id number] 2.16.8 [id number] 1965 Unknown [id number] 2.16.8 [id number] 1964 Unknown [id number] 2.16.8 [id number] 1964 Unknown [id number] 2.16.8 [id number] 1964 Unknown [id number] 2.16.8 [id number] 1964 Unknown [id number] 2.16.8 [id number] 1964 Unknown [id number] 2.16.8 [id number] 1964 Unknown [id number] 2.16.8 [id number] 1964 Unknown [id number] 2.16.84 [id number] 1964 Unknown [id number] 2.16.84 [id number] 1964 Unknown [id number] 2.16.84 [id number] 1964 Unknown [id number] 2.16.84 [id number] 1964 Unknown [id number] 2.16.84 [id number] 1964 Unknown [id number] 2.16.84 [id number] 1960 Self-pay 1960 Self-pay [id number] 1960 Unknown [id number] Self-pay [id number] Social History Date Type Detail Facility Assertion Gender identity finding (finding) [facility] Work Phone: Assertion Finding of sexua l orientation (finding) [facility] Work Phone: Assertion Tobacco user (finding) [facility] Work Phone: Tobacco smoking status Unknown if ever smoked [facility] Work Phone: Assertion Exposure to poll ution (event) [facility] Work Phone: Assertion [facility] Work Phone: Assertion Alcohol consumpt ion screening (procedure) [facility] Work Phone: Assertion Emotional stress (finding) [facility] Work Phone: Assertion Employment findi ng (finding) [facility] Work Phone: NEGATED: Highlighted row Assertion Current drinker of alcohol (finding) [facility] Work Phone: NEGATED: Highlighted row Assertion Finding relating to drug misuse behavior (finding) [facility] Work Phone: NEGATED: Highlighted row Assertion Exposure to pollution (event) [facility] Work Phone: NEGATED: Highlighted row Assertion Illicit drug use (finding) [facility] Work Phone: NEGATED: Highlighted row Assertion Misuse of prescription only drugs (finding) [facility] Work Phone: NEGATED: Highlighted row Assertion [facility] Work Phone: Mental Status Date Assessment Result Facility Cognitive function Cognitive fun ctioning was normal Cognitive function finding (finding) [facility] Work Phone: Clinical Note 04-28-2022 [...] by: JUNITO OCHOA Date: 2022-04-28 12:58 [facility] Summary Purpose Family History No Family [...] NOS Medical New Patient with Laura Sean LIFT MANAGER 09/14/2018 Benign essential hypertension Medical Ne w Patient with Laura Sean LIFT MANAGER 09/14/2018 Coronary artery disease Medical [place] ent with Laura Penfield LIFT MANAGER 09/14/2018 Diabetes Risk Test Score was five score 09/14/2018 Medical New Patient with Laura Penfield LIFT MANAGER 09/14/2018 Hyperlipidemia Medical New Patient with Laura Sean LIFT MANAGER 09/14/2018 Obesity due to excess calories Medical N ew Patient with Laura Sean LIFT MANAGER 09/14/2018 Routine history and physical Medical New Patient with Laura Sean LIFT MANAGER 09/14/2018 Z68.32 - Body mass index (BM I) 32.0-32.9, adult Medical New Patient with Laura Penfield LIFT MANAGER 09/14/2018 Findings Encounter Date Recurrent major depression i n full remission BH Established Patient with Princess BENSON 04/25/2019 Arthralgia of right hand Medical Establi shed Patient with Laura Sean LIFT MANAGER 04/25/2019 Depression Medical Established Patient with Laura Nye LIFT MANAGER 04/25/2019 Fagerstrom Score was 0 Medical Establish ed Patient with Laura Nye LIFT MANAGER 04/25/2019 Obesity due to excess calories Medical E stablished Patient with Laura Sean LIFT MANAGER 04/25/2019 Onychomycosis of the right 1st toenail M edical Established Patient with Laura Penfield LIFT MANAGER 04/25/2019 PHQ-9: total score was three 04/25/2019 Medical Established Patient with Laura Penfield LIFT MANAGER 04/25/2019 Z68.31 - Body mass index (BM I) 31.0-31.9 adult Medical Established Patient with Laura Penfield LIFT MANAGER 04/25/2019 Anxiety disorder NOS Medical New Patient with Laura Penfield LIFT MANAGER 09/14/2018 Benign essential hypertension Medical Ne w Patient with Laura Penfield LIFT MANAGER 09/14/2018 Coronary artery disease Medical [place] ent with Laura Nye LIFT MANAGER 09/14/2018 Diabetes Risk Test Score was five score 09/14/2018 Medical New Patient with Laura Penfield LIFT MANAGER 09/14/2018 Hyperlipidemia Medical New Patient with Laura Penfield LIFT MANAGER 09/14/2018 Obesity due to excess calories Medical N ew Patient with Laura Sean LIFT MANAGER 09/14/2018 Routine history and physical Medical New Patient with Laura Nye LIFT MANAGER 09/14/2018 Z68.32 - Body mass index (BM I) 32.0-32.9, adult Medical New Patient with Laura Sean LIFT MANAGER 09/14/2018 Findings Encounter Date Upper respiratory infection Telemedicine with Suzi Khanna [facility] 09/24/2019 Recurrent major depression i n full remission BH Established Patient with Princess Lorri PUENTE-S 04/25/2019 Arthralgia of right hand Medical Establi shed Patient with Laura Sean LIFT MANAGER 04/25/2019 Depression Medical Established Patient with Laura Sean LIFT MANAGER 04/25/2019 Fagerstrom Score was 0 Medical Establish ed Patient with Laura Sean LIFT MANAGER 04/25/2019 Obesity due to excess calories Medical E stablished Patient with Laura Sean LIFT MANAGER 04/25/2019 Onychomycosis of the right 1st toenail M edical Established Patient with Laura Sean LIFT MANAGER 04/25/2019 PHQ-9: total score was three 04/25/2019 Medical Established Patient with Laura Penfield LIFT MANAGER 04/25/2019 Z68.31 - Body mass index (BM I) 31.0-31.9 adult Medical Established Patient with Laura Sean LIFT MANAGER 04/25/2019 Anxiety disorder NOS Medical New Patient with Laura Penfield LIFT MANAGER 09/14/2018 Benign essential hypertension Medical Ne w Patient with Laura Sean LIFT MANAGER 09/14/2018 Coronary artery disease Medical [place] ent with Luara Nye LIFT MANAGER 09/14/2018 Diabetes Risk Test Score was five score 09/14/2018 Medical New Patient with Laura Penfield LIFT MANAGER 09/14/2018 Hyperlipidemia Medical New Patient with Laura Penfield LIFT MANAGER 09/14/2018 Obesity due to excess calories Medical N ew Patient with Laura Sean LIFT MANAGER 09/14/2018 Routine history and physical Medical New Patient with Laura Ramirez LIFT MANAGER 09/14/2018 Z68.32 - Body mass index (BM I) 32.0-32.9, adult Medical New Patient with Laura Ramirez LIFT MANAGER 09/14/2018 Findings Encounter Date Body mass index Telemedicine with An rivka Khanna [facility] 11/16/2019 Depression Telemedicine with An rivka Khanna [facility] 11/16/2019 Hypertension Telemedicine with An rivka Khanna [facility] 11/16/2019 Obesity due to excess calories Telemedic ine with Suzi Khanna [facility] 11/16/2019 Upper respiratory infection Telemedicine with Suzi Khanna [facility] 09/24/2019 Recurrent major depression i n full remission BH Established Patient with Princess BENSON 04/25/2019 Arthralgia of right hand Medical Establi shed Patient with Laura Sean LIFT MANAGER 04/25/2019 Depression Medical Established Patient with Laura Sean LIFT MANAGER 04/25/2019 Fagerstrom Score was 0 Medical Establish ed Patient with Laura Penfield LIFT MANAGER 04/25/2019 Obesity due to excess calories Medical E stablished Patient with Laura Penfield LIFT MANAGER 04/25/2019 Onychomycosis of the right 1st toenail M edical Established Patient with Laura Sean LIFT MANAGER 04/25/2019 PHQ-9: total score was three 04/25/2019 Medical Established Patient with Laura Sean LIFT MANAGER 04/25/2019 Z68.31 - Body mass index (BM I) 31.0-31.9 adult Medical Established Patient with Laura Ramirez LIFT MANAGER 04/25/2019 Anxiety disorder NOS Medical New Patient with Laura Ramirez LIFT MANAGER 09/14/2018 Benign essential hypertension Medical Ne w Patient with Laura Sean LIFT MANAGER 09/14/2018 Coronary artery disease Medical New [place] ent with Laura Ramirez LIFT MANAGER 09/14/2018 Diabetes Risk Test Score was five score 09/14/2018 Medical New Patient with Laura Ramirez LIFT MANAGER 09/14/2018 Hyperlipidemia Medical New Patient with Laura Nye LIFT MANAGER 09/14/2018 Obesity due to excess calories Medical N ew Patient with Laura Sean LIFT MANAGER 09/14/2018 Routine history and physical Medical New Patient with Laura Ramirez LIFT MANAGER 09/14/2018 Z68.32 - Body mass index (BM I) 32.0-32.9, adult Medical New Patient with Laura Ramirez LIFT MANAGER 09/14/2018 Findings Encounter Date Adjustment disorder with anxiety Tele behavioral Health with Jo Velazquez [facility] 04/30/2020 Mild recurrent major depression Teleb ehavioral Health with Jo Velazquez [facility] 04/30/2020 Body mass index Telemedicine Establi sted Patient with Thalia Block [facility] 04/30/2020 Exposure to a viral disease Telemedicine Establisted Patient with Thalia Block [facility] 04/30/2020 Obesity due to excess calories Telemedic ine Establisted Patient with Thalia Block LIFT MANAGER 04/30/2020 Body mass index Telemedicine with Suzi dalton [facility] 11/16/2019 Depression Telemedicine with Suzi dalton [facility] 11/16/2019 Hypertension Telemedicine with Suzi dalton [facility] 11/16/2019 Obesity due to excess calories Telemedicine with Suzi Khanna [facility] 11/16/2019 Upper respiratory infection Telemedicine with Mary Khanna [facility] 09/24/2019 Recurrent major depression i n full remission BH Established Patient with Princess PUENTE-S 04/25/2019 Arthralgia of right hand Medical Establi shed Patient with Laura Penfield LIFT MANAGER 04/25/2019 Depression Medical Established Patient with Laura Nye LIFT MANAGER 04/25/2019 Fagerstrom Score was 0 Medical Establish ed Patient with Lauramilton Ramirez LIFT MANAGER 04/25/2019 Obesity due to excess calories Medical E stablished Patient with Laura Penfield LIFT MANAGER 04/25/2019 Onychomycosis of the right 1 st toenail Medical Established Patient with Laura Ramirez LIFT MANAGER 04/25/2019 PHQ-9: total score was three 04/25/2019 Medical Established Patient with Laura Ramirez LIFT MANAGER 04/25/2019 Z68.31 - Body mass index (BM I) 31.0-31.9 adult Medical Established Patient with Laura Ramirez LIFT MANAGER 04/25/2019 Anxiety disorder NOS Medical New Patient with Laura Ramirez LIFT MANAGER 09/14/2018 Benign essential hypertension Medical Ne w Patient with Laura Ramirez LIFT MANAGER 09/14/2018 Coronary artery disease Medical New [place] ent with Laura Ramirez LIFT MANAGER 09/14/2018 Diabetes Risk Test Score was five score 09/14/2018 Medical New Patient with Laura Ramirez LIFT MANAGER 09/14/2018 Hyperlipidemia Medical New Patient with Laura Ramirez LIFT MANAGER 09/14/2018 Obesity due to excess calories Medical N ew Patient with Laura Ramirez LIFT MANAGER 09/14/2018 Routine history and physical Medical New Patient with Laura Ramirez LIFT MANAGER 09/14/2018 Z68.32 - Body mass index (BM I) 32.0-32.9, adult Medical New Patient with Laura Ramirez LIFT MANAGER 09/14/2018 Findings Encounter Date Body mass index Telemedicine Establi sted Patient with Suzi Khanna LIFT MANAGER 06/27/2020 Hypertension Telemedicine Establi sted Patient with Suzi Khanna LIFT MANAGER 06/27/2020 Adjustment disorder with anxiety Tele behavioral Health with Jo Velazquez [facility] 04/30/2020 Mild recurrent major depression Teleb ehavioral Health with Jo Velazquez [facility] 04/30/2020 Body mass index Telemedicine Establi sted Patient with Thalia Umair LIFT MANAGER 04/30/2020 Exposure to a viral disease Telemedicine Establisted Patient with Thalia Umair LIFT MANAGER 04/30/2020 Obesity due to excess calories Telemedic ine Establisted Patient with Thalia Umair LIFT MANAGER 04/30/2020 Body mass index Telemedicine with Suzi dalton LIFT MANAGER 11/16/2019 Depression Telemedicine with Suzi dalton LIFT MANAGER 11/16/2019 Hypertension Telemedicine with Suzi Mijares e LIFT MANAGER 11/16/2019 Obesity due to excess calories Telemedicine with Suzi Khanna LIFT MANAGER 11/16/2019 Upper respiratory infection Telemedicine with Mary Khanna LIFT MANAGER 09/24/2019 Recurrent major depression i n full remission BH Established Patient with Princess PUENTE-S 04/25/2019 Arthralgia of right hand Medical Establi shed Patient with Laura Sean LIFT MANAGER 04/25/2019 Depression Medical Established Patient with Laura Nye LIFT MANAGER 04/25/2019 Fagerstrom Score was 0 Medical Establish ed Patient with Laura Ramirez LIFT MANAGER 04/25/2019 Obesity due to excess calories Medical E stablished Patient with Laura Sean LIFT MANAGER 04/25/2019 Onychomycosis of the right 1 st toenail Medical Established Patient with Laura Nye LIFT MANAGER 04/25/2019 PHQ-9: total score was three 04/25/2019 Medical Established Patient with Laura Nye LIFT MANAGER 04/25/2019 Z68.31 - Body mass index (BM I) 31.0-31.9 adult Medical Established Patient with Laura Nye LIFT MANAGER 04/25/2019 Anxiety disorder NOS Medical New Patient with Laura Nye LIFT MANAGER 09/14/2018 Benign essential hypertension Medical Ne w Patient with Laura Sean LIFT MANAGER 09/14/2018 Coronary artery disease Medical [place] ent with Laura Ramirez LIFT MANAGER 09/14/2018 Diabetes Risk Test Score was five score 09/14/2018 Medical New Patient with Laura Nye LIFT MANAGER 09/14/2018 Hyperlipidemia Medical New Patient with Laura Nye LIFT MANAGER 09/14/2018 Obesity due to excess calories Medical N ew Patient with Larua Sean LIFT MANAGER 09/14/2018 Routine history and physical Medical New Patient with Laura Ramirez LIFT MANAGER 09/14/2018 Z68.32 - Body mass index (BM I) 32.0-32.9, adult Medical New Patient with Laura Ramirez LIFT MANAGER 09/14/2018 Findings Encounter Date Mild recurrent major depress ion with anxiety BH Established Patient with Laverne Garrett [facility] 07/03/2020 Diabetes Risk Test Score was five score 07/03/2020 Medical Established Patient with Suzi Khanna LIFT MANAGER 07/03/2020 Hypertension Medical Established Patient with Suzi Khanna LIFT MANAGER 07/03/2020 Obesity due to excess calories Medical E stablished Patient with Suzi Khanna LIFT MANAGER 07/03/2020 Z68.36 - Body mass index [BM I] 36.0-36.9, adult Medical Established Patient with Suzi Khanna LIFT MANAGER 07/03/2020 Body mass index Telemedicine Establi sted Patient with Suzi Khanna LIFT MANAGER 06/27/2020 Hypertension Telemedicine Establi sted Patient with Suzipilo Khanna LIFT MANAGER 06/27/2020 Adjustment disorder with anxiety BH Tele behavioral Health with Jo HICKS 04/30/2020 Mild recurrent major depression BH Teleb ehavioral Health with Jowesley Velazquez [facility] 04/30/2020 Body mass index Telemedicine Establi sted Patient with Thalia Block LIFT MANAGER 04/30/2020 Exposure to a viral disease Telemedicine Establisted Patient with Thalia Umair LIFT MANAGER 04/30/2020 Obesity due to excess calories Telemedic ine Establisted Patient with Thalia Umair LIFT MANAGER 04/30/2020 Body mass index Telemedicine with Suzi Maryana e LIFT MANAGER 11/16/2019 Depression Telemedicine with Suzi Mijares e LIFT MANAGER 11/16/2019 Hypertension Telemedicine with Suzi Mijares e LIFT MANAGER 11/16/2019 Obesity due to excess calories Telemedicine with Suzi Jey LIFT MANAGER 11/16/2019 Upper respiratory infection Telemedicine with Mary Khanna LIFT MANAGER 09/24/2019 Recurrent major depression i n full remission BH Established Patient with Princess BENSON 04/25/2019 Arthralgia of right hand Medical Establi shed Patient with Laura Sean LIFT MANAGER 04/25/2019 Depression Medical Established Patient with Laura Penfield LIFT MANAGER 04/25/2019 Fagerstrom Score was 0 Medical Establish ed Patient with Laura Penfield LIFT MANAGER 04/25/2019 Obesity due to excess calories Medical E stablished Patient with Laura Penfield LIFT MANAGER 04/25/2019 Onychomycosis of the right 1 st toenail Medical Established Patient with Laura Penfield LIFT MANAGER 04/25/2019 PHQ-9: total score was three 04/25/2019 Medical Established Patient with Laura Penfield LIFT MANAGER 04/25/2019 Z68.31 - Body mass index (BM I) 31.0-31.9 adult Medical Established Patient with Laura Sean LIFT MANAGER 04/25/2019 Anxiety disorder NOS Medical New Patient with Laura Sean LIFT MANAGER 09/14/2018 Benign essential hypertension Medical Ne w Patient with Laura Sean LIFT MANAGER 09/14/2018 Coronary artery disease Medical [place] ent with Laura Penfield LIFT MANAGER 09/14/2018 Diabetes Risk Test Score was five score 09/14/2018 Medical New Patient with Laura Sean LIFT MANAGER 09/14/2018 Hyperlipidemia Medical New Patient with Laura Penfield LIFT MANAGER 09/14/2018 Obesity due to excess calories Medical N ew Patient with Laura Sean LIFT MANAGER 09/14/2018 Routine history and physical Medical New Patient with Laura Ramirez LIFT MANAGER 09/14/2018 Z68.32 - Body mass index (BM I) 32.0-32.9, adult Medical New Patient with Laura Ramirez LIFT MANAGER 09/14/2018 Findings Encounter Date Recurrent major depression i n full remission BH Established Patient with Princess PUENTE-S 04/25/2019 Depression Medical Established Patient with Laura Ramirez CNP 04/25/2019 Fagerstrom Score was 0 Medical Establish ed Patient with Laura Ramirez LIFT MANAGER 04/25/2019 Obesity due to excess calories Medical E stablished Patient with Laura Sean LIFT MANAGER 04/25/2019 PHQ-9: total score was three 04/25/2019 Medical Established Patient with Laura Ramirez LIFT MANAGER 04/25/2019 Z68.31 - Body mass index (BM I) 31.0-31.9 adult Medical Established Patient with Laura Ramirez CNP 04/25/2019 Anxiety disorder NOS Medical New Patient with Laura Sean LIFT MANAGER 09/14/2018 Benign essential hypertension Medical Ne w Patient with Laura Sean LIFT MANAGER 09/14/2018 Coronary artery disease Medical New [place] ent with Laura Nye LIFT MANAGER 09/14/2018 Diabetes Risk Test Score was five score 09/14/2018 Medical New Patient with Laura Sean LIFT MANAGER 09/14/2018 Hyperlipidemia Medical New Patient with Laura Ramirez LIFT MANAGER 09/14/2018 Obesity due to excess calories Medical N ew Patient with Laura Ramirez LIFT MANAGER 09/14/2018 Routine history and physical Medical New Patient with Laura Ramirez LIFT MANAGER 09/14/2018 Z68.32 - Body mass index (BM I) 32.0-32.9, adult Medical New Patient with Laura Sean LIFT MANAGER 09/14/2018 Instructions Instructions not supported for this [...] section and content) DATE CREATED AUTHOR 12/20/2018 [facility] DATE CREATED AUTHOR AUTHOR'S ORGANIZ ATION 04/28/2019 [facility] DATE CREATED AUTHOR AUTHOR'S ORGANIZ ATION 01/20/2022 [facility] DATE CREATED AUTHOR AUTHOR'S ORGANIZ ATION 05/01/2022 [facility] DATE CREATED AUTHOR AUTHOR'S ORGANIZ ATION 02/07/2023 [facility] [place] DATE CREATED AUTHOR AUTHOR'S DAVONTE ATCRIS 05/21/2023 [facility] EPIC Evaluations & Outcomes (unre [...] BE BASED ON THE PRIMARY CLINICAL RECORDS. [employer] [facility]. provides no warranty or guarantee of the accuracy or completeness of information in this document.
[2023-07-08 06:53] LABS: Estimated Average Glucose 128 mg/dL; Glycohemoglobin A1C 6.1 % (4.5-6.2)
[2023-07-08 07:25] LABS: Chol HDL Ratio 2.8; Cholesterol 174 mg/dL (<=200); HDL Cholesterol 62 mg/dL (40-60); Triglycerides 175 mg/dL (<=150)
[2023-07-11 15:08] LABS: Angiotensin-Converting Enzyme 33 U/L (14-82)
== END 2023-07-08 06:30 | disposition home or self-care (01) ==
LOC: LAB 06:30
PROVIDERS: PCP Internal Medicine; Visit Provider Internal Medicine
DX: E78.5 Hyperlipidemia, unspecified (principal); R73.09 Other abnormal glucose; D86.0 Sarcoidosis of lung
CPT/HCPCS: 36415; 80061; 82164; 83036

== ENCOUNTER 2023-09-16 09:00 | Outpatient (OUT) | payer OTHER, SELFPAY ==
--- NOTE | 2023-09-16 09:10 | XR_ITS ---
The [address] [address] Patient Name: FABRIZIO ECKERT MRN: [id number] date: 1965 Sex: F Assigned Patient Location: [facility] Current Patient Location: Accession/Order Number: [id number] Exam Date: 09/16/2023 09:15 Report Date: 09/18/2023 05:16 At the request of: SHAIKH JONO Procedure: XR shoulder LT min 2V PROCEDURE: XR shoulder LT min 2V HISTORY: Acute pain of left shoulder M25.512 ; no known injury COMPARISON: None. FINDINGS: BONES:No fracture, acute abnormality, or significant arthropathy. SOFT TISSUES:No visible soft tissue swelling. EFFUSION:None visible. OTHER: Negative. XR/XR shoulder LT min 2V IMPRESSION: 1. No acute bone abnormality or significant degenerative changes of the left shoulder. Electronically authenticated by: JUNITO OCHOA Date: 09/18/2023 05:16
== END 2023-09-16 09:01 | disposition home or self-care (01) ==
PROVIDERS: PCP Internal Medicine; Visit Provider Internal Medicine
DX: M25.512 Pain in left shoulder (principal)
CPT/HCPCS: 73030

== ENCOUNTER 2023-10-24 12:36 | Outpatient (OUT) | payer OTHER, SELFPAY ==
--- NOTE | 2023-10-24 | MR_ITS ---
[address] [address] Patient Name: FABRIZIO ECKERT MRN: [id number] date: 1965 Sex: F Assigned Patient Location: MRI Current Patient Location: Accession/Order Number: [id number] Exam Date: 10/24/2023 12:57 Report Date: 10/25/2023 11:18 At the request of: SHAIKH JONO Procedure: MR shoulder LT wo con EXAMINATION: MR shoulder LT wo con HISTORY: Acute left shoulder pain after falling COMPARISON: XR shoulder left 09/16/2023 TECHNIQUE: A variety of imaging planes and parameters were utilized for visualization of suspected pathology. Imaging was performed without or with contrast as indicated by examination type. FINDINGS: ROTATOR CUFF REGION CUFF TENDONS: Moderate increased signal intensity in the supraspinatus tendon indicates tendon degeneration and/or tendinitis. No merlin tear is seen. CUFF MUSCLES: Normal appearing muscles. DELTOID: Normal. No significant atrophy or tear. LONG BICEPS TENDON: Normal. No abnormal signal, attrition, or tear. LABRUM/BICEPS ANCHOR SUPERIOR: Tear. ANTERIOR/INFERIOR: Normal. No visible tear or attrition. POSTERIOR: Normal. No posterior labrum abnormality. CAPSULE Normal. No visible capsular laxity or thickening. 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 AC LIGAMENTS: Normal acromioclavicular ligament. CC LIGAMENTS: Normal coracoclavicular ligaments. ACROMION: Normal horizontal (Type I) configuration. SUBACROMIAL BURSA: Normal. No significant effusion. HYALINE CARTILAGE: Normal. No visible cartilage narrowing or focal defect. OTHER BONES: Normal proximal humerus, glenoid, and coracoid. OTHER OBSERVATIONS: Negative. No other significant findings or glenohumeral effusion. MR/MR shoulder LT wo con IMPRESSION: 1. Suspected tear of the superior labrum. 2. Mild strain of the supraspinatus tendon. 3. Mild degenerative changes of the acromioclavicular joint with small undersurface osteophytes which would predispose to rotator cuff injury. Electronically authenticated by: JUNITO OCHOA Date: 10/25/2023 11:18
--- OUTSIDE RECORDS SUMMARY | 2023-10-24 12:39 | XMS_ITS | CCD ---
Author Organization [facility] ion [facility] Care Team Providers Care [employer] Supervisor Name Role Phone KAYLA FREEMAN Referring Unavailable SEAN, LAURA A Primary Care Unavailable PETE AMLINWOOD Admitting Unavailable KAYLA FREEMAN Attending Unavailable Waller, Laura Primary Care Provider [phone] RHETT NAQVI Referring Unavailable SEAN, LAURA A Primary Care Unavailable AHMADRHETT Referring Unavailable SEAN, LAURA A Primary Care Unavailable RHETT NAQVI Referring Unavailable SEAN, LAURA A Primary Care Unavailable SEAN, LAURA A Primary Care Unavailable DEYANIRA REID Attending Unavailab le SEAN, LAURA A Referring Unavailable SEAN, LAURA A Primary Care Unavailable SEAN, LAURA A Referring Unavailable SEAN, LAURA A Primary Care Unavailable SEAN, LAURA A Referring Unavailable SEAN, LAURA A Primary Care Unavailable Suzi Martinez Primary Care Provider [phone] Suzi Martinez Primary Care Provider Provider, None Primary Care Unavailable Len Garcia Attending Unavailable Len Garcia Admitting Unavailable PAL ANDERSON Admitting Unavailable DR JUNITO OCHOA Consulting Unavailable SHAIKH DE LA CRUZ H Primary Care Unavailable PAL ANDERSON Attending Unavailable PAL ANDERSON Consulting Unavailable MARKER, DR JUNG Attending Unavailable MARKER, DR JUNG Admitting Unavailable RAFAT MCMANUS Consulting Unavailable JONO, MCCAULEY H Primary Care Unavailable MARKER, DR JUNG Consulting Unavailable LEN DONATO Consulting Unavailable PAL ANDERSON Attending Unavailable CATIA ANDERSONID Admitting Unavailable MYRA, DR CEASAR Pichardo Consulting Unavailable JONO, MCCAULEY H Primary Care Unavailable PAL ANDERSON Consulting Unavailable FAWWAD, MCCAULEY H Attending Unavailable FAWWAD, MCCAULEY H Admitting Unavailable FAWWAD, MCCAULEY H Primary Care Unavailable FAWWAD, MCCAULEY H Consulting Unavailable FAWWAD, MCCAULEY H Consulting Unavailable FAWWAD, MCCAULEY H Attending Unavailable FAWWAD, MCCAULEY H Admitting Unavailable FAWWAD, MCCAULEY H Primary Care Unavailable Calin ESTEVEZ Attending Unavailable FAWWAD, MCCAULEY Attending Unavailable FAWWAD, MCCAULEY Attending Unavailable FAWWAD, MCCAULEY Attending Unavailable SIDDHARTH OLIVER Attending Unavailable FAWWAD, MCCAULEY Referring Unavailable JORDON MARTINEZ Attending Unavailable FAWWAD, MCCAULEY Referring Unavailable JORDON MARTINEZ Attending Unavailable FAWWAD, MCCAULEY Referring Unavailable FAWWAD, MCCAULEY Attending Unavailable JORDON MARTINEZ Attending Unavailable FAWWAD, MCCAULEY Referring Unavailable OJRDON MARTINEZ Attending Unavailable FAWWAD, MCCAULEY Referring Unavailable JORDON MARTINEZ Attending Unavailable FAWWAD, MCCAULEY Referring Unavailable SIDDHARTH OLIVER Attending Unavailable FAWWAD, MCCAULEY Referring Unavailable Allergies Allergy Classification Reported Allergen(s) Allergy Type Date of Onset Reaction(s) Facility (4 sources) Seasonal allergy Allergy to substance 04-30-2020 [facility] Work Phone: Medications Current Medications Medication Drug Class(es) Dates Sig (Normalized) Sig (Original) Aspirin Adult Low Strength 81MG Oral Tablet Delayed Release (9 sources) Start: 09-12-2018 Aspirin Adult Low Strength 81MG Oral Tablet Delayed Release 09/12/2018 Provider: citalopram 40 mg oral tablet (20 sources) Serotonin Reuptake Inhibitor Start: 04-30-2020 End: 07-03-2020 CeleXA 40 MG Oral Tablet 07/03/2020 Provider: Suzi Martinez CNP Start: 09-12-2018 End: 04-30-2020 Citalopram Hydrobromide 20MG Oral Tablet 10/25/2018 - 11/24/2018 Provider: Yevgeniy Park CNP diphenhydrAMINE hydrochloride 25 mg oral tablet (1 source) Histamine-1 Receptor Antagonist Start: 07-03-2020 Benadryl Allergy 25 MG Oral Tablet 07/03/2020 Provider: hydrOXYzine hydrochloride 25 mg oral tablet (5 sources) Antihistamine Start: 04-30-2020 End: 07-03-2020 hydrOXYzine HCl 25 MG Oral Tablet 07/03/2020 Provider: Suzi Martinze CNP Completed/Discontinued Medications Medication Drug Class(es) Dates [...] Oral Tablet 11/08/2019 - 11/16/2019 Provider: Suzi Martinez CNP clopidogrel 75 mg oral tablet (20 sources) P2Y12 Platelet Inhibitor Start: 04-18-2019 End: 07-03-2020 Clopidogrel Bisulfate 75 MG Oral Tablet 11/08/2019 - 11/16/2019 Provider: Suzi Martinez CNP Fish Oils (9 sources) Start: 09-12-2018 [...] Coronary arteriosclerosis; 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: [Atherosclerotic heart disease of [place] coronary artery without angina pectoris] Onset: 09-14-2018 [...] 04-25-2019 Chronic Other aftercare (1 source) 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; 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 Electronically authenticated by: LEN TANMAY Date: 2022-02-17 23:02 Normal [facility] CBC AUTO DIFFon 02-17-2022 BASO # 0.1 103/ul Normal 0.0-0.1 [facility] Comment on above: Performed By: #### C BC #### [facility] [address] [address] [address] Abby Sanchez Basophils/100 WBC (Bld) 0.7 % Normal 0.2-2.0 [facility] Comment on above: Performed By: #### C BC #### [facility] [address] [address] [address] Abby Sanchez EO # 0.1 103/ul Normal 0.0-0.7 [facility] Comment on above: Performed By: #### C BC #### [facility] [address] [address] [address] Abby Sanchez Eosinophils/100 WBC (Bld) 1.0 % Normal 0.9-7.0 [facility] Comment on above: Performed By: #### C BC #### [facility] [address] [address] [address] Abby Sanchez Erythrocyte distribution width (RBC) [Ratio] 13.7 % Normal 11.0-15.0 [facility] Comment on above: Performed By: #### C BC #### [facility] [address] [address] [address] Abby Sanchez Hematocrit (Bld) [Volume fraction] 44.5 % Normal 36.0-48.0 [facility] Comment on above: Performed By: #### C BC #### [facility] [address] [address] [address] Abby Sanchez Hemoglobin (Bld) [Mass/Vol] 14.5 g/dL Normal 12.0-16.0 [facility] Comment on above: Performed By: #### C BC #### [facility] [address] [address] [address] Abby Sanchez IG # 0.03 10e3/ul Normal 0.00-0.03 [facility] Comment on above: Performed By: #### C BC #### [facility] [address] [place] [address] Dr. Abby Sanchez IG % 0.2 % Normal 0.0-0.5 [facility] Comment on above: Performed By: #### C BC #### [facility] [address] [place] [address] Dr. Abby Sanchez LYMPH # 2.1 103/ul Normal 1.2-3.8 [facility] Comment on above: Performed By: #### C BC #### [facility] [address] [place] [address] Dr. Abby Sanchez Lymphocytes/100 WBC (Bld) 16.2 % Critically low 20.5-60.0 [facility] Comment on above: Performed By: #### C BC #### [facility] [address] [place] [address] Dr. Abby Sanchez MANUAL DIFF REQ NO Normal [facility] Comment on above: Performed By: #### C BC #### [facility] [address] [place] [address] Dr. Abby Sanchez MCH (RBC) [Entitic mass] 30.6 pg Normal 26.7-34.0 [facility] Comment on above: Performed By: #### C BC #### [facility] [address] [place] [address] Dr. Abby Sanchez MCHC (RBC) [Mass/Vol] 32.6 g/dL Normal 29.9-35.2 [facility] Comment on above: Performed By: #### C BC #### [facility] [address] [place] [address] Dr. Abby Sanchez MCV (RBC) [Entitic vol] 93.9 fL Normal 81.0-99.0 [facility] Comment on above: Performed By: #### C BC #### [facility] [address] [place] [address] Dr. Abby Sanchez MONO # 0.6 103/ul Normal 0.3-0.8 [facility] Comment on above: Performed By: #### C BC #### [facility] [address] [place] [address] Dr. Abby Sanchez Monocytes/100 WBC (Bld) 5.1 % Normal 1.7-12.0 [facility] Comment on above: Performed By: #### C BC #### [facility] [address] [place] [address] Dr. Abby Sanchez NEUT # 9.7 103/ul Critically high 1.4-6.5 [facility] Comment on above: Performed By: #### C BC #### [facility] [address] [place] [address] Dr. Abby Sanchez Neutrophils/100 WBC (Bld) 76.8 % Critically high 43.0-75.0 [facility] Comment on above: Performed By: #### C BC #### [facility] [address] [place] [address] Dr. Abby Sanchez Platelet mean volume (Bld) [Entitic vol] 9.6 fL Normal 9.5-13.5 [facility] Comment on above: Performed By: #### C BC #### [facility] [address] [place] [address] Dr. Abby Sanchez PLT 324 103/ul Normal 150-450 [facility] Comment on above: Performed By: #### C BC #### [facility] [address] [place] [address] Dr. Abby Sanchez RBC 4.74 106/ul Normal 4.20-5.40 [facility] Comment on above: Performed By: #### C BC #### [facility] [address] [place] [address] Dr. Abby Sanchez WBC 12.7 103/ul Critically high 4.0-11.0 [facility] Comment on above: Performed By: #### C BC #### [facility] [address] [place] [address] Dr. Abby Sanchez CULTURE URINEon 02-17-2022 CULTURE URINE Culture Observations : NO GROWTH. Normal [facility] Comment on above: Performed By: #### U RCX #### [facility] [address] [place] [address] Dr. Abby Sanchez ER URINE PROFILEon 2 Bilirubin Ql (U) Negative Normal NEGATIVE [facility] Comment on above: Performed By: #### CATHY MOE ####[facility] Bre[address] [place], [place] [address]Dr. Abby Sanchez Clarity (U) SL CLOUDY Abnormal CLEAR [facility] Comment on above: Performed By: #### CATHY MOE ####[facility] T[address] [place], [place] [address]Dr. Abby Sanchez Color (U) LT. YELLOW Normal YELLOW [facility] Comment on above: Performed By: #### CATHY MOE ####[facility] Tivehwciyx[address] [place], [place] [address]Dr. Abby PORTILLO A micrscopic examina tion will be performed if indicated. Normal [facility] Comment on above: Performed By: #### CATHY MOE ####[facility] Aalmmyssfu[address] [place], [place] [address]Dr. Abby Sanchez Glucose Ql (U) Negative Normal NEGATIVE [facility] Comment on above: Performed By: #### CATHY MOE ####[facility] Wsyph[address] [place], [place] [address]Dr. Abby Sanchez Hemoglobin Ql (U) LARGE Abnormal NEGATIVE [facility] Comment on above: Performed By: #### CATHY MOE ####[facility] Ygsymhavmm[address] [place], [place] [address]Dr. Abby Sanchez Ketones Ql (U) Negative Normal NEGATIVE [facility] Comment on above: Performed By: #### CATHY MOE ####[facility] Verkcpppgc[address] [place], [place] [address]Dr. Abby Snachez LEUKOCYTES TRACE Abnormal NEGATIVE [facility] Comment on above: Performed By: #### CATHY MOE ####[facility] Fpcjendw[address] [place], [place] [address]Dr. Abby Sanchez Nitrite Ql (U) Negative Normal NEGATIVE [facility] Comment on above: Performed By: #### CATHY MOE ####[facility] [address] [address]Dr. Abby Sanhcez pH (U) 7.0 [pH] Normal 5-9 [facility] Comment on above: Performed By: #### CATHY MOE ####[facility] [address] [address]Dr. Abby Sanchez Protein (U) [Mass/Vol] 100 mg/dL Abnormal NEGATIVE/ TRACE [facility] Comment on above: Performed By: #### CATHY MOE ####[facility] Ugvdlaemhp[address] [place], [place] [address]Dr. Abby Sanchez SPEC GRAVITY 1.025 Normal 1.005-<=1.02 5 [facility] Comment on above: Performed By: #### CATHY MOE ####[facility] Hzlzju[address] [place], [place] [address]DrChandrakant Sanchez UR MICRO IND INDICATED Normal [facility] Comment on above: Performed By: #### CATHY MOE ####[facility] Prnpzwb[address] [place], [place] [address]Dr. Abby Sanchez Urobilinogen Qn (U) 0.2 {[place]ina'U}/dL Normal 0.2 - 1. 0 [facility] Comment on above: Performed By: #### CATHY MOE ####[facility] [address] [place], [place] [address]DrChandrakant Sanchez PROF CHEM 8 (BAS METB)on Anion gap [Moles/Vol] 11.5 mmol/L Normal [facility] Comment on above: Performed By: #### B MP ####[facility] Oycljmizsd[address] [place], [place] [address]DrChandrakant Sanchez Calcium [Mass/Vol] 8.9 mg/dL Normal 8.5-10.1 [facility] Comment on above: Performed By: #### B MP ####[facility] Fewbiv[address] [place], [place] [address]Dr. Abby Sanchez Chloride [Moles/Vol] 103 mmol/L Normal 98-107 [facility] Comment on above: Performed By: #### B MP ####[facility] [address] [address]Dr. Abby Sanchez CO2 [Moles/Vol] 29.1 mmol/L Normal 21.0-32.0 [facility] Comment on above: Performed By: #### B MP ####[facility] [address] [place], [place] [address]Dr. Abby Daniel Creatinine [Mass/Vol] 0.79 mg/dL Normal 0.55-1.02 [facility] Comment on above: Performed By: #### B MP ####[facility] Qtvpsfwnof[address] [place], [place] [address]Dr. Kirabrittney Daniel EGFR-AF AFGHAN >60 Normal >=60 [facility] Comment on above: Performed By: #### B MP ####[facility] Xd[address]cstw[address] [place], [place] [address]Dr. Kirabrittney Daniel EGFR-NON AF AFGHAN >60 Normal >=60 [facility] Comment on above: Performed By: #### B MP ####[facility] Ur[address]omadgt[address] [place], [place] [address]Dr. Kirabrittney Daniel Glucose [Mass/Vol] 112 mg/dL Critically high 74-106 [facility] Comment on above: Performed By: #### B MP ####[facility] Ndsrkidqfq[address] [place], [place] [address]Dr. Kirabrittney Daniel Potassium [Moles/Vol] 4.6 mmol/L Normal 3.5-5.1 [facility] Comment on above: Performed By: #### B MP ####[facility] Lrwmwpqyt[address] [place], [place] [address]Dr. Abby Sanchez Sodium [Moles/Vol] 139 mmol/L Normal 136-145 [facility] Comment on above: Performed By: #### B MP ####[facility] Racmbxvrtv[address] [place], [place] [address]Dr. Abby Sanchez Urea nitrogen [Mass/Vol] 12.0 mg/dL Normal 7.0-18.0 [facility] Comment on above: Performed By: #### B MP ####[facility] [address] [address]Dr. Abby Sancehz Urea nitrogen/Creatinine [Mass ratio] 15.2 mg/mg Normal [facility] Comment on above: Performed By: #### B MP ####[facility] [address] [address]Dr. Abby Sanchez PROTIMEon 02-17-2022 INR Coag (PPP) [Relative time] {INR} Normal [facility] Comment on above: Performed By: #### P T, PTT #### [facility] [address] [place] [address] Dr. Abby Sanchez INR GUIDELINES SEE BELOW Normal [facility] Comment on above: Result Comment: PINEDA RED INR: 2.0 - 3.0 CONDITIONS NOT LISTED BELOW 2.5 - 3.5 FOR PROSTHETIC HEART VALVE REPLACEMENT 2.5 - 3.5 RECURRENT THROMBOSIS Performed By: #### P T, PTT #### [facility] [address] [place] [address] Dr. Abby Sanchez PT Coag (PPP) [Time] 10.0 s Normal 9.0-11.6 [facility] Comment on above: Performed By: #### P T, PTT #### [facility] [address] [place] [address] Dr. Abyb Sanchez PTTon 02-17-2022 aPTT Coag (Bld) [Time] 27.9 s Normal 22.3-36.2 [facility] Comment on above: Performed By: #### P T, PTT #### [facility] [address] [place] [address] Dr. Abby Sanchez URINE MICROSCOPIC ONLYon BACTERIA TRACE Abnormal NONE SEEN [facility] Comment on above: Performed By: #### CATHY MOE ####[facility] [address] [address]Dr. Abby Sanchez Bacteria identified Cx Nom (U) INDICATED Normal [facility] Comment on above: Performed By: #### E CATHY SNOW ####[facility] [address] [address]Dr. Abby Sanchez CAST NONE SEEN Normal NONE SEEN [facility] Comment on above: Performed By: #### BARRINGTON MOERO ####[facility] [address] [address]Dr. Abby Sanchez Crystals LM Nom (Urine sed) NONE SEEN Normal NONE SEEN [facility] Comment on above: Performed By: #### BARRINGTON MOERO ####[facility] [address] [address]Dr. Abby Sanchez Epithelial cells LM Ql (Urine sed) FEW Abnormal NONE SEEN /RARE [facility] Comment on above: Performed By: #### CATHY MOE ####[facility] [address] [place], [place] [address]Dr. Abby Sanchez MUCOUS NONE SEEN Normal NONE SEEN [facility] Comment on above: Performed By: #### CATHY MOE ####[facility] [address] [place], [place] [address]Dr. Abby Sanchez RBC (U) [#/Vol] /uL Abnormal 0-2 [facility] Comment on above: Performed By: #### CATHY MOE ####[facility] [address] [place], [place] [address]Dr. Abby Sanchez WBC 5-10 Abnormal NONE SEEN [facility] Comment on above: Performed By: #### CATHY MOE ####[facility] [address] [place], [place] [address]Dr. Abby Sanchez CBC AUTO DIFFon 11-17-2021 BASO # 0.1 103/ul Normal 0.0-0.1 [facility] Comment on above: Performed By: #### C BC ####[facility] At[address] [place], [place] [address]Dr. Abby Sanchez Basophils/100 WBC (Bld) 0.9 % Normal 0.2-2.0 [facility] Comment on above: Performed By: #### C BC ####[facility] [address] [address]Dr. Abby Sanchez EO # 0.1 103/ul Normal 0.0-0.7 [facility] Comment on above: Performed By: #### C BC ####[facility] [address] [address]Dr. Abby Sanchez Eosinophils/100 WBC (Bld) 1.9 % Normal 0.9-7.0 [facility] Comment on above: Performed By: #### C BC ####[facility] [address] [address]Dr. Abby Sanchez Erythrocyte distribution width (RBC) [Ratio] 13.8 % Normal 11.0-15.0 [facility] Comment on above: Performed By: #### C BC ####[facility] [address] [address]Dr. Abby Sanchez Hematocrit (Bld) [Volume fraction] 44.4 % Normal 36.0-48.0 [facility] Comment on above: Performed By: #### C BC ####[facility] [address] [address]Dr. Abby Sanchez Hemoglobin (Bld) [Mass/Vol] 14.5 g/dL Normal 12.0-16.0 [facility] Comment on above: Performed By: #### C BC ####[facility] [address] [address]Dr. Abby Sanchez IG # 0.02 10e3/ul Normal 0.00-0.03 [facility] Comment on above: Performed By: #### C BC ####[facility] [address] [address]Dr. Abby Sanchez IG % 0.4 % Normal 0.0-0.5 [facility] Comment on above: Performed By: #### C BC ####[facility] [address] [address]Dr. Abby Sanchez LYMPH # 1.8 103/ul Normal 1.2-3.8 [facility] Comment on above: Performed By: #### C BC ####[facility] [address] [address]Dr. Abby Daniel Lymphocytes/100 WBC (Bld) 30.9 % Normal 20.5-60.0 [facility] Comment on above: Performed By: #### C BC ####[facility] [address] [address]Dr. Abby Daniel MANUAL DIFF REQ NO Normal [facility] Comment on above: Performed By: #### C BC ####[facility] [address] [address]Dr. Abby Daniel MCH (RBC) [Entitic mass] 31.2 pg Normal 26.7-34.0 [facility] Comment on above: Performed By: #### C BC ####[facility] [address] [address]Dr. Abby Daniel MCHC (RBC) [Mass/Vol] 32.7 g/dL Normal 29.9-35.2 [facility] Comment on above: Performed By: #### C BC ####[facility] [address] [place], [place] [address]Dr. Abby Daniel MCV (RBC) [Entitic vol] 95.5 fL Normal 81.0-99.0 [facility] Comment on above: Performed By: #### C BC ####[facility] Br[address] [place], [place] [address]Dr. Kirabrittney Daniel MONO # 0.3 103/ul Normal 0.3-0.8 [facility] Comment on above: Performed By: #### C BC ####[facility] [address] [address]Dr. Kirabrittney Sanchez Monocytes/100 WBC (Bld) 5.3 % Normal 1.7-12.0 [facility] Comment on above: Performed By: #### C BC ####[facility] [address] [place], [place] [address]Dr. Abby Sanchez NEUT # 3.5 103/ul Normal 1.4-6.5 [facility] Comment on above: Performed By: #### C BC ####[facility] [address] [address]Dr. Abby Sanchez Neutrophils/100 WBC (Bld) 60.6 % Normal 43.0-75.0 [facility] Comment on above: Performed By: #### C BC ####[facility] [address] [address]Dr. Abby Sanchez Platelet mean volume (Bld) [Entitic vol] 9.6 fL Normal 9.5-13.5 [facility] Comment on above: Performed By: #### C BC ####[facility] [address] [address]Dr. Abby Sanchez PLT 308 103/ul Normal 150-450 [facility] Comment on above: Performed By: #### C BC ####[facility] [address] [address]Dr. Abby Sanchez RBC 4.65 106/ul Normal 4.20-5.40 [facility] Comment on above: Performed By: #### C BC ####[facility] [address] [address]Dr. Abby Sanchez WBC 5.7 103/ul Normal 4.0-11.0 [facility] Comment on above: Performed By: #### C BC ####[facility] [address] [address]Dr. Abby Sanchez GLYCOHEMOGLOBIN A1Con 2021 ADA RECOMMENDATION SEE BELOW Normal [facility] Comment on above: Result Comment: ADA RECOMMENDED LIMIT 4.0 - 6.0 ADA THERAPEUTIC TARGET < 7.0 ACTION SUGGESTED > 7.0 Performed By: #### A 1C #### [facility] [address] [address] [address] Abby Sanchez Glucose [Mass/Vol] 131 mg/dL Normal [facility] Comment on above: Performed By: #### A 1C #### [facility] [address] [address] [address] Abby Sanchez HbA1c (Bld) [Mass fraction] 6.2 % Normal 4.5-6.2 [facility] Comment on above: Performed By: #### A 1C #### [facility] [address] [address] [address] Abby Sanchez LIPASEon 11-17-2021 Lipase [Catalytic activity/Vol] 117.0 U/L Normal 73.0-393.0 [facility] Comment on above: Performed By: #### C MP, LIPA, LIPID #### [facility] [address] [place] [address] Dr. Abby Sanchez LIPID PROFILEon 11-17-2021 CHOL-HDL RATIO NORM SEE BELOW Normal [facility] Comment on above: Result Comment: 3.3 - 4.4 LOW RISK 4.4 - 7.1 AVERAGE RISK 7.1 - 11.0 MODERATE RISK >11.0 HIGH RISK Performed By: #### C MP, LIPA, LIPID #### [facility] [address] [place] [address] Dr. Abby Sanchez Cholesterol [Mass/Vol] 220 mg/dL Critically high <=200 [facility] Comment on above: Performed By: #### C MP, LIPA, LIPID #### [facility] [address] [place] [address] Dr. Abby Sanchez Cholesterol in HDL [Mass/Vol] 52 mg/dL Normal 40-60 [facility] Comment on above: Performed By: #### C MP, LIPA, LIPID #### [facility] [address] [place] [address] Dr. Abby Sanchez Cholesterol in LDL [Mass/Vol] 142.8 mg/dL Normal [facility] Comment on above: Performed By: #### C MP, LIPA, LIPID #### [facility] [address] [place] [address] Dr. Abby Sanchez Cholesterol.total/C holesterol in HDL [Mass ratio] 4.2 {ratio} Normal [facility] Comment on above: Performed By: #### C MP, LIPA, LIPID #### [facility] [address] [place] [address] Dr. Abby Sanchez HDL NORMAL > or = 60 mg/dl - LO W CARDIOVASCULAR RISK <40 mg/dl - HIGH CARDIOVASCULAR RISK Normal [facility] Comment on above: Performed By: #### C MP, LIPA, LIPID #### [facility] [address] [address] [address] Abby Sanchez LDL CALC NORMAL SEE BELOW Normal [facility] Comment on above: Result Comment: <100 mg/dl OPTIMAL 100 - 129 mg/dl NEAR OR ABOVE OPTIMAL 130 - 159 mg/dl BORDERLINE HIGH 160 - 189 mg/dl HIGH >190 mg/dl VERY HIGH Performed By: #### C MP, LIPA, LIPID #### [facility] [address] [address] [address] Abby Sanchez Triglyceride [Mass/Vol] 126 mg/dL Normal <=150 [facility] Comment on above: Performed By: #### C MP, LIPA, LIPID #### [facility] [address] [address] [address] Abby Sanchez VLDL CALC 25.2 mg/dL Normal [facility] Comment on above: Performed By: #### C MP, LIPA, LIPID #### [facility] [address] [address] [address] Abby Sanchez PROF 14(COMP METB)on 022 Albumin [Mass/Vol] 3.3 g/dL Critically low 3.4-5.0 [facility] Comment on above: Performed By: #### C MP, LIPA, LIPID ####[facility] [address] [phone] Sanchez Albumin/Globulin [Mass ratio] 0.8 {ratio} Normal [facility] Comment on above: Performed By: #### C MP, LIPA, LIPID ####[facility] [address] [phone] Sanchez ALP [Catalytic activity/Vol] 111 U/L Normal 46-116 [facility] Comment on above: Performed By: #### C MP, LIPA, LIPID ####[facility] [address] [place] [phone] Sanchez ALT [Catalytic activity/Vol] 25 U/L Normal 14-59 [facility] Comment on above: Performed By: #### C MP, LIPA, LIPID ####[facility] [address] [place] [phone]. Abby Sanchez Anion gap [Moles/Vol] 11.8 mmol/L Normal [facility] Comment on above: Performed By: #### C MP, LIPA, LIPID ####[facility] [address] [phone]. Abby Sanchez AST [Catalytic activity/Vol] 19 U/L Normal 15-37 [facility] Comment on above: Performed By: #### C MP, LIPA, LIPID ####[facility] [address] [place] [address] [address]Dr. Abby Sanchez Bilirubin [Mass/Vol] 0.4 mg/dL Normal 0.2-1.0 [facility] Comment on above: Performed By: #### C MP, LIPA, LIPID ####[facility] [address] [place] [address]Dr. Abby Sanchez Calcium [Mass/Vol] 9.1 mg/dL Normal 8.5-10.1 [facility] Comment on above: Performed By: #### C MP, LIPA, LIPID ####[facility] [address] [address]Dr. Abby Sanchez Chloride [Moles/Vol] 103 mmol/L Normal 98-107 [facility] Comment on above: Performed By: #### C MP, LIPA, LIPID ####[facility] [address] [place] [address]Dr. Abby Sanchez CO2 [Moles/Vol] 28.8 mmol/L Normal 21.0-32.0 [facility] Comment on above: Performed By: #### C MP, LIPA, LIPID ####[facility] [address] [place] [address]Dr. Abby Sanchez Creatinine [Mass/Vol] 0.76 mg/dL Normal 0.55-1.02 [facility] Comment on above: Performed By: #### C MP, LIPA, LIPID ####[facility] [address] [address]Dr. Abby Sanchez EGFR-AF AFGHAN >60 Normal >=60 [facility] Comment on above: Performed By: #### C MP, LIPA, LIPID ####[facility] [address] [address]Dr. Abby Sanchez EGFR-NON AF AFGHAN >60 Normal >=60 [facility] Comment on above: Performed By: #### C MP, LIPA, LIPID ####[facility] [address] [place] [address]Dr. Abby Sanchez Globulin (S) [Mass/Vol] 4.1 g/dL Normal [facility] Comment on above: Performed By: #### C MP, LIPA, LIPID ####[facility] [address] [address]Dr. Abby Sanchez Glucose [Mass/Vol] 111 mg/dL Critically high 74-106 [facility] Comment on above: Performed By: #### C MP, LIPA, LIPID ####[facility] [address] [place] [address]Dr. Abby Sanchez Potassium [Moles/Vol] 4.6 mmol/L Normal 3.5-5.1 [facility] Comment on above: Performed By: #### C MP, LIPA, LIPID ####[facility] [address] [address]Dr. Abby Sanchez Protein [Mass/Vol] 7.4 g/dL Normal 6.4-8.2 [facility] Comment on above: Performed By: #### C MP, LIPA, LIPID ####[facility] [address] [address]Dr. Abby Sanchez Sodium [Moles/Vol] 139 mmol/L Normal 136-145 [facility] Comment on above: Performed By: #### C MP, LIPA, LIPID ####[facility] [address] [place] [address]Dr. Abby Sanchez Urea nitrogen [Mass/Vol] 12.0 mg/dL Normal 7.0-18.0 [facility] Comment on above: Performed By: #### C MP, LIPA, LIPID ####[facility] [address] [place] [phone]. Abby Sanchez Urea nitrogen/Creatinine [Mass ratio] 15.8 mg/mg Normal [facility] Comment on above: Performed By: #### C MP, LIPA, LIPID ####[facility] [address] [place] [phone]. Abby Sanchez INFLUENZA A AND B AGon 10-14 INFLUANEGH SEE BELOW Normal [facility] Comment on above: Result Comment: Nega tive for Flu A protein angiten. Infection due to Flu A cannot be ruled out. Flu A angiten in the sample may be below the detection limit of the test. Performed By: #### I NFLUAB #### [facility] [address] [place] [address] Dr. Abby Sanchez INFLUBNEG SEE BELOW Normal [facility] Comment on above: Result Comment: Nega tive for Flu B protein antigen. Infection due to Flu B cannot be ruled out. Flu B antigen in the sample may be below the detection limit of the test. Performed By: #### I NFLUAB #### [facility] [address] [place] [address] Dr. Abby Sanchez INFLUENZA A AG Negative Normal NEGATIVE SEE COMMENT [facility] Comment on above: Performed By: #### I NFLUAB #### [facility] [address] [place] [address] Dr. Abby Sanchez INFLUENZA B AG Negative Normal NEGATIVE SEE COMMENT [facility] Comment on above: Performed By: #### I NFLUAB #### [facility] [address] [place] [address] Dr. Abby Sanchez INTERNAL CONTROLS Within Normal Limits Normal Wi thin Normal Limits [facility] Comment on above: Performed By: #### I NFLUAB #### [facility] [address] [place] [address] Dr. Abby Sanchez XR CHEST 1 Von [...] CEASAR RENTERIA Date: 2021-10-14 13:03 Normal [facility] Covid-19 PCR (CVDTB)on SARS-CoV-2 (COVID-19) RNA HAO+probe Ql (Unsp spec) Detected Critically abnormal NOT DETECTED [facility] Comment on above: Result Comment: This test is not yet approved or cleared by the [place] FDA. When there are no FDA-approved or cleared tests available, and other criteria are met, FDA can make tests available under an emergency access mechanism called an Emergency Use Authorization (EUA). The EUA for this test is supported by the [place] of Health and Human Service's declaration that [...] longer be used). Performed By: #### C VDTB ####[facility] [address] [place], [place] [address]Bg. Abby Sanchez XR HAND RIGHT (MIN 3 VIEWS)o [...] Deyanira Cortés MD 04/25/19 Final result Normal [facility] C-Reactive Proteinon 019 CRP [Mass/Vol] 57.2 mg/L High 0.0-5.0 [facility] Comment on above: Performed By: #### C DP, CRP #### [facility] [address] [place], [place] [address] Corporate Traffic Manager: Wang Day MD CBC with Diffon 12-17-2018 Abs. Basophil 0.04 k/uL Normal 0.00-0.20 [facility] Comment on above: Performed By: #### C DP, CRP #### [facility] [address] [place], [place] [address] Corporate Traffic Manager: Wang Day MD Abs.Imm.Granulocyte 0.03 k/uL Normal 0.00-0.30 [facility] Comment on above: Performed By: #### C DP, CRP #### [facility] [address] [place] [address] Corporate Traffic Manager: Wang Day MD Abs.Neutrophil (Seg) 6.82 k/uL Normal 1.50-8.10 [facility] Comment on above: Performed By: #### C DP, CRP #### [facility] [address] [place], [place] [address] Corporate Traffic Manager: Wang Day MD Basophils/100 WBC (Bld) 0 % Normal 0-2 [facility] Comment on above: Performed By: #### C DP, CRP #### [address] [place], [place] [address] Corporate Traffic Manager: Wang Day MD Eosinophils (Bld) [#/Vol] 0.11 10*3/uL Normal 0.00-0.44 [facility] Comment on above: Performed By: #### C DP, CRP #### [facility] [address] [place], [facility] Corporate Traffic Manager: Wang Day MD Eosinophils/100 WBC (Bld) 1 % Normal 1-4 [facility] Comment on above: Performed By: #### C DP, CRP #### [facility] [address] [place] [id number] Corporate Traffic Manager: Wang Day MD Erythrocyte distribution width (RBC) [Ratio] 12.6 % Normal 11.8-14.4 [facility] Comment on above: Performed By: #### C DP, CRP #### [facility] [address] [place], [place] [address] Corporate Traffic Manager: Wang Day MD Hematocrit (Bld) [Volume fraction] 36.5 % Normal 36.3-47.1 [facility] Comment on above: Performed By: #### C DP, CRP #### [facility] [address] [place], [facility] Corporate Traffic Manager: Wang Day MD Hemoglobin (Bld) [Mass/Vol] 12.1 g/dL Normal 11.9-15.1 [facility] Comment on above: Performed By: #### C DP, CRP #### [facility] [address] [place], [place] [address] Corporate Traffic Manager: Wang Day MD Immature granulocytes (Bld) [#/Vol] 0 % Normal 0 [facility] Comment on above: Performed By: #### C DP, CRP #### [facility] [address] [place], [place] [address] Corporate Traffic Manager: Wang Day MD Lymphocytes (Bld) [#/Vol] 1.57 10*3/uL Normal 1.10-3.70 [facility] Comment on above: Performed By: #### C DP, CRP #### [facility] [address] [place], [place] [address] [employer] Traffic Manager: Wang Day MD Lymphocytes/100 WBC (Bld) 17 % Low 24-43 [facility] Comment on above: Performed By: #### C DP, CRP #### [facility] [address] [place] [phone] Corporate Traffic Manager: Wang Day MD MCH (RBC) [Entitic mass] 31.3 pg Normal 25.2-33.5 [facility] Comment on above: Performed By: #### C DP, CRP #### [facility] [address] [place], [place] [phone] Corporate Traffic Manager: Wang Day MD MCHC (RBC) [Mass/Vol] 33.2 g/dL Normal 28.4-34.8 [facility] Comment on above: Performed By: #### C DP, CRP #### [facility] [address] [place], [facility] Corporate Traffic Manager: Wang Day MD MCV (RBC) [Entitic vol] 94.6 fL Normal 82.6-102.9 [facility] Comment on above: Performed By: #### C DP, CRP #### [facility] [address] [place] [phone] Corporate Traffic Manager: Wang Day MD Monocytes (Bld) [#/Vol] 0.84 10*3/uL Normal 0.10-1.20 [facility] Comment on above: Performed By: #### C DP, CRP #### [facility] [address] [place] [phone] Corporate Traffic Manager: Wang Day MD Monocytes/100 WBC (Bld) 9 % Normal 3-12 [facility] Comment on above: Performed By: #### C DP, CRP #### [facility] [address] [place], [facility] Corporate Traffic Manager: Wang Day MD Neutrophil (Seg) 73 % High 36-65 [facility] Comment on above: Performed By: #### C DP, CRP #### [facility] [address] [place], [facility] Corporate Traffic Manager: Wang Day MD NRBC Automated 0.0 per 100 WBC Normal 0.0 [facility] Comment on above: Performed By: #### C DP, CRP #### [facility] [address] [place] [phone] Corporate Traffic Manager: Wang Day MD Platelet mean volume (Bld) [Entitic vol] 9.8 fL Normal 8.1-13.5 [facility] Comment on above: Performed By: #### C DP, CRP #### [facility] [address] [place] [address] Corporate Traffic Manager: Wang Day MD Platelets (Bld) [#/Vol] 290 10*3/uL Normal 138-453 [facility] Comment on above: Performed By: #### C DP, CRP #### [facility] [address] [place] [address] Corporate Traffic Manager: Wang Day MD RBC (Bld) [#/Vol] 3.86 10*6/uL Low 3.95-5.11 [facility] Comment on above: Performed By: #### C DP, CRP #### [facility] [address] [place], [facility] Corporate Traffic Manager: Wang Day MD WBC (Bld) [#/Vol] 9.4 10*3/uL Normal 3.5-11.3 [facility] Comment on above: Performed By: #### C DP, CRP #### [facility] [address] [place] [address] Corporate Traffic Manager: Wang Day MD Auto Diff Performed NOT REPORTED Normal [facility] Comment on above: Performed By: #### C DP, CRP #### [facility] [address] [place] [address] [employer] Traffic Manager: Wang Day MD Platelets (Bld) [#/Vol] NOT REPORTED Normal [facility] Comment on above: Performed By: #### C DP, CRP #### [facility] [address] [place] [address] Corporate Traffic Manager: Wang Day MD RBC morphology finding Nom (Bld) NOT REPORTED Normal [facility] Comment on above: Performed By: #### C DP, CRP #### [facility] [address] [place], [place] [id number] Corporate Traffic Manager: Wang Day MD WBC Morphology NOT REPORTED Normal [facility] Comment on above: Performed By: #### C DP, CRP #### [facility] [address] [place], [place] [address] [employer] Traffic Manager: Wang Day MD Urinalysis w/ Microon 2018 ----- Normal [facility] Comment on above: Performed By: #### U AMIC #### [facility] [address] [place], [place] [address] Corporate Traffic Manager: Wang Day MD Acetoacetic Acid,Ur TRACE Abnormal NEG [facility] Comment on above: Performed By: #### U AMIC #### [facility] [address] [place], [place] [address]83 Corporate Traffic Manager: Wang Day MD Amorphous sediment LM Ql (Urine sed) TRACE Abnormal [facility] Comment on above: Performed By: #### U AMIC #### [facility] [address] [place] [address] Corporate Traffic Manager: Wang Day MD Bacteria LM.HPF (Urine sed) [#/Area] TRACE Abnormal [facility] Comment on above: Performed By: #### U AMIC #### [facility] [address] [place] [address] Corporate Traffic Manager: Wang Day MD Bilirubin, SemiQt,Ur Negative Normal NEG [facility] Comment on above: Performed By: #### U AMIC #### [facility] [address] [place], [place] [address] Corporate Traffic Manager: Wang Day MD Color (U) YELLOW Normal YEL [facility] Comment on above: Performed By: #### U AMIC #### [facility] [address] [place], [place] [phone] Corporate Traffic Manager: Wang Day MD Epithelial cells LM.HPF (Urine sed) [#/Area] 2 TO 5 Normal 0-25 [facility] Comment on above: Performed By: #### U AMIC #### [facility] [address] [place] [address] Corporate Traffic Manager: Wang Day MD Glucose Ql (U) Negative Normal NEG [facility] Comment on above: Performed By: #### U AMIC #### [facility] [address] [place] [address] Corporate Traffic Manager: Wang Day MD Hemoglobin, Ur 1+ Abnormal NEG [facility] Comment on above: Performed By: #### U AMIC #### [facility] [address] [place] [address] Corporate Traffic Manager: Wang Day MD Leukocyte esterase Test strip Ql (U) Negative Normal [facility] Comment on above: Performed By: #### U AMIC #### [facility] [address] [place] [address] [place] [address] Corporate Traffic Manager: Wang Day MD Nitrite,Ur Negative Normal [facility] Comment on above: Performed By: #### U AMIC #### [facility] [address] [place] [address] Corporate Traffic Manager: Wang Day MD pH (U) 7.5 [pH] Normal 5.0-9.0 [facility] Comment on above: Performed By: #### U AMIC #### [facility] [address] [place] [address] Corporate Traffic Manager: Wang Day MD Protein Ql (U) TRACE Abnormal NEG [facility] Comment on above: Performed By: #### U AMIC #### [facility] [address] [place] [address] Corporate Traffic Manager: Wang Day MD RBC (U) [#/Vol] 10 TO 20 Normal 0-2 [facility] Comment on above: Performed By: #### U AMIC #### [facility] [address] [place], [place] [address] Corporate Traffic Manager: Wang Day MD Specific gravity (U) [Rel density] 1.010 Normal 1.010-1.020 [facility] Comment on above: Performed By: #### U AMIC #### [facility] [address] [place], [facility] Corporate Traffic Manager: Wang Day MD Turbidity CLEAR Normal CLEAR [facility] Comment on above: Performed By: #### U AMIC #### [facility] [address] [place] [phone] Corporate Traffic Manager: Wang Day MD Urobilinogen,Ur ELEVATED Abnormal NORM [facility] Comment on above: Performed By: #### U AMIC #### [facility] [address] [place] [phone] Corporate Traffic Manager: Wang Day MD WBC (U) [#/Vol] 0 TO 2 Normal 0-5 [facility] Comment on above: Performed By: #### U AMIC #### [address] [place], [place] [id number] Corporate Traffic Manager: Wang Day MD Casts LM.LPF (Urine sed) [#/Area] NOT REPORTED Normal [facility] Comment on above: Performed By: #### U AMIC #### [facility] [address] [place], [facility] Corporate Traffic Manager: Wang Day MD Comment NOT REPORTED Normal [facility] Comment on above: Performed By: #### U AMIC #### [facility] [address] [place] [address] Corporate Traffic Manager: Wang Day MD Crystals LM Nom (Urine sed) NOT REPORTED Normal NONE [facility] Comment on above: Performed By: #### U AMIC #### [facility] [address] [place], [place] [phone] Corporate Traffic Manager: Wang Day MD Epithelial, Renal NOT REPORTED Normal 0 [facility] Comment on above: Performed By: #### U AMIC #### [facility] [address] [place], [place] [phone] [employer] Traffic Manager: Wang Day MD Mucus Strands NOT REPORTED Normal NONE [facility] Comment on above: Performed By: #### U AMIC #### [facility] [address] [place], [place] [phone] Corporate Traffic Manager: Wang Day MD Other Observations NOT REPORTED Normal NREQ [facility] Comment on above: Performed By: #### U AMIC #### [facility] [address] [place], [place] [phone] [employer] Traffic Manager: Wang Day MD Trichomonas NOT REPORTED Normal NONE [facility] Comment on above: Performed By: #### U AMIC #### [facility] [address] [place], [place] [phone] Corporate Traffic Manager: Wang Day MD Yeast LM Ql (Urine sed) NOT REPORTED Normal [facility] Comment on above: Performed By: #### U AMIC #### [facility] [address] [place] [address] Corporate Traffic Manager: Wang Day MD Basic Metabolic Profon 12-13 (cont.) Normal [facility] Comment on above: Result Comment: Aver age GFR for 50-59 years old: 93 mL/min/1.73sq m Chronic Kidney Disease: <60 mL/min/1.73sq m Kidney failure: <15 mL/min/1.73sq m eGFR calculated using average adult body mass. Additional eGFR calculator available at: http://www.[employer]/multiple_crcl_2012.htm Performed By: #### C BC, BMP #### [facility] [address] [place] [address] [employer] Traffic Manager: Sebastián Garsia MD Anion gap [Moles/Vol] 11 mmol/L Normal 9-17 [facility] Comment on above: Performed By: #### C BC, BMP #### [address] [address] Corporate Traffic Manager: Sebastián Garsia MD Calcium [Mass/Vol] 8.3 mg/dL Low 8.6-10.4 [facility] Comment on above: Performed By: #### C BC, BMP #### [facility] [address] [place] [address] Corporate Traffic Manager: Sebastián Garsia MD Chloride [Moles/Vol] 106 mmol/L Normal 98-107 [facility] Comment on above: Performed By: #### C BC, BMP #### [facility] [address] [place] [address] Corporate Traffic Manager: Sebastián Garsia MD CO2 [Moles/Vol] 24 mmol/L Normal 20-31 [facility] Comment on above: Performed By: #### C BC, BMP #### [address] [address] Corporate Traffic Manager: Sebastián Garsia MD Creatinine [Mass/Vol] 0.60 mg/dL Normal 0.50-0.90 [facility] Comment on above: Performed By: #### C BC, BMP #### [facility] [address] [place] [address] Corporate Traffic Manager: Sebastián Garsia MD GFR, Amer >60 Normal >60 [facility] Comment on above: Performed By: #### C BC, BMP #### [facility] [address] [place] [address] Corporate Traffic Manager: Sebastián Garsia MD GFR,non Amer >60 Normal >60 [facility] Comment on above: Performed By: #### C BC, BMP #### [facility] [address] [place] [address] Corporate Traffic Manager: Sebastián Garsia MD Glucose [Mass/Vol] 106 mg/dL High 70-99 [facility] Comment on above: Performed By: #### C BC, BMP #### [facility] [address] [place] [address] Corporate Traffic Manager: Sebastián Garsia MD Potassium [Moles/Vol] 4.4 mmol/L Normal 3.7-5.3 [facility] Comment on above: Performed By: #### C BC, BMP #### [facility] [address] [place] [address] Corporate Traffic Manager: Sebastián Garsia MD Sodium [Moles/Vol] 141 mmol/L Normal 135-144 [facility] Comment on above: Performed By: #### C BC, BMP #### [facility] [address] [place] [address] Corporate Traffic Manager: Sebastián Garsia MD Urea nitrogen [Mass/Vol] 11 mg/dL Normal 6-20 [facility] Comment on above: Performed By: #### C BC, BMP #### [facility] [address] [place] [address] Corporate Traffic Manager: Sebastián Garsia MD BUN/CRE Ratio NOT REPORTED Normal 9-20 [facility] Comment on above: Performed By: #### C BC, BMP #### [facility] [address] [place] [address] Corporate Traffic Manager: Sebastián Garsia MD Staging: NOT REPORTED Normal [facility] Comment on above: Performed By: #### C BC, BMP #### [facility] [address] [place] [phone] Corporate Traffic Manager: Sebastián Garsia MD CBCon 12-13-2018 Erythrocyte distribution width (RBC) [Ratio] 13.1 % Normal 11.8-14.4 [facility] Comment on above: Performed By: #### C BC, BMP #### [address] [address] Corporate Traffic Manager: Sebastián Garsia MD Hematocrit (Bld) [Volume fraction] 35.7 % Low 36.3-47.1 [facility] Comment on above: Performed By: #### C BC, BMP #### [address] [address] Corporate Traffic Manager: Sebastián Garsia MD Hemoglobin (Bld) [Mass/Vol] 11.6 g/dL Low 11.9-15.1 [facility] Comment on above: Performed By: #### C BC, BMP #### [address] [address] Corporate Traffic Manager: Sebastián Garsia MD MCH (RBC) [Entitic mass] 31.6 pg Normal 25.2-33.5 [facility] Comment on above: Performed By: #### C BC, BMP #### [address] [address] Corporate Traffic Manager: Sebastián Garsia MD MCHC (RBC) [Mass/Vol] 32.5 g/dL Normal 28.4-34.8 [facility] Comment on above: Performed By: #### C BC, BMP #### [address] [address] Corporate Traffic Manager: Sebastián Garsia MD MCV (RBC) [Entitic vol] 97.3 fL Normal 82.6-102.9 [facility] Comment on above: Performed By: #### C BC, BMP #### [address] [address] Corporate Traffic Manager: Sebastián Garsia MD NRBC Automated 0.0 per 100 WBC Normal 0.0 [facility] Comment on above: Performed By: #### C BC, BMP #### [address] [address] Corporate Traffic Manager: Sebastián Garsia MD Platelet mean volume (Bld) [Entitic vol] 10.1 fL Normal 8.1-13.5 [facility] Comment on above: Performed By: #### C BC, BMP #### [address] [address] Corporate Traffic Manager: Sebastián Garsia MD Platelets (Bld) [#/Vol] 260 10*3/uL Normal 138-453 [facility] Comment on above: Performed By: #### C BC, BMP #### [address] [address] Corporate Traffic Manager: Sebastián Garsia MD RBC (Bld) [#/Vol] 3.67 10*6/uL Low 3.95-5.11 [facility] Comment on above: Performed By: #### C BC, BMP #### [address] [address] Corporate Traffic Manager: Sebastián Garsia MD WBC (Bld) [#/Vol] 9.5 10*3/uL Normal 3.5-11.3 [facility] Comment on above: Performed By: #### C BC, BMP #### [address] [address] Corporate Traffic Manager: Sebastián Garsia MD Basic Metabolic Profon 12-08 (cont.) Normal [facility] Comment on above: Result Comment: Aver age GFR for 50-59 years old: 93 mL/min/1.73sq m Chronic Kidney Disease: <60 mL/min/1.73sq m Kidney failure: <15 mL/min/1.73sq m eGFR calculated using average adult body mass. Additional eGFR calculator available at: http://www.Pidgon.com/multiple_crcl_2011.htm Performed By: #### C DP, BMP #### [facility] [address] [place], [place] [phone] Corporate Traffic Manager: Wang Day MD Anion gap [Moles/Vol] 10 mmol/L Normal 9-17 [facility] Comment on above: Performed By: #### C DP, BMP #### [facility] [address] [place], [place] [phone] Corporate Traffic Manager: Wang Day MD BUN/CRE Ratio 15 Normal 9-20 [facility] Comment on above: Performed By: #### C DP, BMP #### [facility] [address] [place], [place] [phone] Corporate Traffic Manager: Wang Day MD Calcium [Mass/Vol] 9.6 mg/dL Normal 8.6-10.4 [facility] Comment on above: Performed By: #### C DP, BMP #### [facility] [address] [place], [place] [phone] Corporate Traffic Manager: Wang Day MD Chloride [Moles/Vol] 101 mmol/L Normal 98-107 [facility] Comment on above: Performed By: #### C DP, BMP #### [facility] [address] [place], [place] [phone] Corporate Traffic Manager: Wang Day MD CO2 [Moles/Vol] 26 mmol/L Normal 20-31 [facility] Comment on above: Performed By: #### C DP, BMP #### [facility] [address] [place], [place] 7007083 Corporate Traffic Manager: Wang Day MD Creatinine [Mass/Vol] 0.68 mg/dL Normal 0.50-0.90 [facility] Comment on above: Performed By: #### C DP, BMP #### [facility] [address] [place], [place] [phone] Corporate Traffic Manager: Wang Day MD GFR, Amer >60 Normal >60 [facility] Comment on above: Performed By: #### C DP, BMP #### [facility] [address] [place] [address] Corporate Traffic Manager: Wang Day MD GFR,non Amer >60 Normal >60 [facility] Comment on above: Performed By: #### C DP, BMP #### [facility] [address] [place], [place] [phone] Corporate Traffic Manager: Wang Day MD Glucose [Mass/Vol] 95 mg/dL Normal 70-99 [facility] Comment on above: Performed By: #### C DP, BMP #### [facility] [address] [place], [place] 6055083 Corporate Traffic Manager: Wang Day MD Potassium [Moles/Vol] 4.5 mmol/L Normal 3.7-5.3 [facility] Comment on above: Performed By: #### C DP, BMP #### [facility] [address] [place] [address] Corporate Traffic Manager: Wang Day MD Sodium [Moles/Vol] 137 mmol/L Normal 135-144 [facility] Comment on above: Performed By: #### C DP, BMP #### [facility] [address] [place], [place] [phone] Corporate Traffic Manager: Wang Day MD Staging: Normal [facility] Comment on above: Result Comment: Stag e 1: Some kidney damage normal GFR Stage 2: Mild kidney damage GFR 60-89 Stage 3: Moderate kidney damage GFR 30-59 Stage 4: Severe kidney damage GFR 15-29 Stage 5: Severe kidney damage GFR <15 ESRD - chronic treatment by dialysis or transplant Performed By: #### C DP, BMP #### [facility] [address] [place] [address] Corporate Traffic Manager: Wang Day MD Urea nitrogen [Mass/Vol] 10 mg/dL Normal 6-20 [facility] Comment on above: Performed By: #### C DP, BMP #### [facility] [address] [place] [address] Corporate Traffic Manager: Wang Day MD CBC with Diffon 12-08-2018 Abs. Basophil 0.06 k/uL Normal 0.00-0.20 [facility] Comment on above: Performed By: #### C DP, BMP #### [facility] [address] [address] Corporate Traffic Manager: Wang Day MD Abs.Imm.Granulocyte 0.03 k/uL Normal 0.00-0.30 [facility] Comment on above: Performed By: #### C DP, BMP #### [address] [place] [address] Corporate Traffic Manager: Wang Day MD Abs.Neutrophil (Seg) 5.90 k/uL Normal 1.50-8.10 [facility] Comment on above: Performed By: #### C DP, BMP #### [address] [place] [address] Corporate Traffic Manager: Wang Day MD Basophils/100 WBC (Bld) 1 % Normal 0-2 [facility] Comment on above: Performed By: #### C DP, BMP #### [address] [place] [address] Corporate Traffic Manager: Wang Day MD Eosinophils (Bld) [#/Vol] 0.16 10*3/uL Normal 0.00-0.44 [facility] Comment on above: Performed By: #### C DP, BMP #### [facility] [address] [place] [address] Corporate Traffic Manager: Wang Day MD Eosinophils/100 WBC (Bld) 2 % Normal 1-4 [facility] Comment on above: Performed By: #### C DP, BMP #### [address] [place] [address] Corporate Traffic Manager: Wang Day MD Erythrocyte distribution width (RBC) [Ratio] 12.9 % Normal 11.8-14.4 [facility] Comment on above: Performed By: #### C DP, BMP #### [facility] [address] [place] [phone] Corporate Traffic Manager: Wang Day MD Hematocrit (Bld) [Volume fraction] 44.4 % Normal 36.3-47.1 [facility] Comment on above: Performed By: #### C DP, BMP #### [facility] [address] [place] [phone] Corporate Traffic Manager: Wang Day MD Hemoglobin (Bld) [Mass/Vol] 14.3 g/dL Normal 11.9-15.1 [facility] Comment on above: Performed By: #### C DP, BMP #### [address] [place], [place] [address] Corporate Traffic Manager: Wang Day MD Immature granulocytes (Bld) [#/Vol] 0 % Normal 0 [facility] Comment on above: Performed By: #### C DP, BMP #### [address] [place], [facility] Corporate Traffic Manager: Wang Day MD Lymphocytes (Bld) [#/Vol] 2.20 10*3/uL Normal 1.10-3.70 [facility] Comment on above: Performed By: #### C DP, BMP #### [facility] [address] [place], [facility] Corporate Traffic Manager: Wang Day MD Lymphocytes/100 WBC (Bld) 25 % Normal 24-43 [facility] Comment on above: Performed By: #### C DP, BMP #### [facility] [address] [place] [address] Corporate Traffic Manager: Wang Day MD MCH (RBC) [Entitic mass] 31.3 pg Normal 25.2-33.5 [facility] Comment on above: Performed By: #### C DP, BMP #### [facility] [address] [place], [place] [address] Corporate Traffic Manager: Wang Day MD MCHC (RBC) [Mass/Vol] 32.2 g/dL Normal 28.4-34.8 [facility] Comment on above: Performed By: #### C DP, BMP #### [facility] [address] [place], [facility] Corporate Traffic Manager: Wang Day MD MCV (RBC) [Entitic vol] 97.2 fL Normal 82.6-102.9 [facility] Comment on above: Performed By: #### C DP, BMP #### [facility] [address] [place], [facility] Corporate Traffic Manager: Wang Day MD Monocytes (Bld) [#/Vol] 0.57 10*3/uL Normal 0.10-1.20 [facility] Comment on above: Performed By: #### C DP, BMP #### [facility] [address] [place], [facility] Corporate Traffic Manager: Wang Day MD Monocytes/100 WBC (Bld) 6 % Normal 3-12 [facility] Comment on above: Performed By: #### C DP, BMP #### [facility] [address] [place], [place] [address] Corporate Traffic Manager: Wang Day MD Neutrophil (Seg) 66 % High 36-65 [facility] Comment on above: Performed By: #### C DP, BMP #### [facility] [address] [place], [facility] Corporate Traffic Manager: Wang Day MD NRBC Automated 0.0 per 100 WBC Normal 0.0 [facility] Comment on above: Performed By: #### C DP, BMP #### [facility] [address] [place], [facility] Corporate Traffic Manager: Wang Dya MD Platelet mean volume (Bld) [Entitic vol] 9.9 fL Normal 8.1-13.5 [facility] Comment on above: Performed By: #### C DP, BMP #### [facility] [address] [place] [address] Corporate Traffic Manager: Wang Day MD Platelets (Bld) [#/Vol] 298 10*3/uL Normal 138-453 [facility] Comment on above: Performed By: #### C DP, BMP #### [facility] [address] [place] [address] Corporate Traffic Manager: Wang Day MD RBC (Bld) [#/Vol] 4.57 10*6/uL Normal 3.95-5.11 [facility] Comment on above: Performed By: #### C DP, BMP #### [facility] [address] [place], [place] [phone] Corporate Traffic Manager: Wang Day MD WBC (Bld) [#/Vol] 8.9 10*3/uL Normal 3.5-11.3 [facility] Comment on above: Performed By: #### C DP, BMP #### [facility] [address] [place] [address] Corporate Traffic Manager: Wang Day MD Auto Diff Performed NOT REPORTED Normal [facility] Comment on above: Performed By: #### C DP, BMP #### [facility] [address] [place], [place] [phone] Corporate Traffic Manager: Wang Day MD Platelets (Bld) [#/Vol] NOT REPORTED Normal [facility] Comment on above: Performed By: #### C DP, BMP #### [facility] [address] [place], [place] [phone] Corporate Traffic Manager: Wang Day MD RBC morphology finding Nom (Bld) NOT REPORTED Normal [facility] Comment on above: Performed By: #### C DP, BMP #### [facility] [address] [place] [address] Corporate Traffic Manager: Wang Day MD WBC Morphology NOT REPORTED Normal [facility] Comment on above: Performed By: #### C DP, BMP #### [facility] [address] [place] [address] Corporate Traffic Manager: Wang Day MD CARDIAC STRESS TESTon 2018 CARDIAC STRESS TEST [address] [id number] CARDIAC STRESS TEST PATIENT NAME: FABRIZIO ECKERT : 1965 MED REC NO: [id number] ROOM: ACCOUNT NO: [id number] ADMIT DATE: 12/05/2018 PROVIDER: Rhett Naqvi CARDIOVASCULAR [...] BETTE/CANDIS_ALEX Doc#: Unknown CC: Laura Ramirez Normal [facility] CBC with Diffon 10-23-2018 Abs. Basophil 0.04 k/uL Normal 0.00-0.20 [facility] Comment on above: Performed By: #### C DP, CPBILC, LIPR, TSHX #### [facility] [address] [place] [phone] Corporate Traffic Manager: Wang Day MD Abs.Imm.Granulocyte <0.03 Normal 0.00-0.30 [facility] Comment on above: Performed By: #### C DP, CPBILC, LIPR, TSHX #### [facility] [address] [place] [phone] Corporate Traffic Manager: Wang Day MD Abs.Neutrophil (Seg) 3.34 k/uL Normal 1.50-8.10 [facility] Comment on above: Performed By: #### C DP, CPBILC, LIPR, TSHX #### [facility] [address] [place] [phone] Corporate Traffic Manager: Wang Day MD Basophils/100 WBC (Bld) 1 % Normal 0-2 [facility] Comment on above: Performed By: #### C DP, CPBILC, LIPR, TSHX #### [facility] [address] [place] [phone] Corporate Traffic Manager: Wang Day MD Eosinophils (Bld) [#/Vol] 0.14 10*3/uL Normal 0.00-0.44 [facility] Comment on above: Performed By: #### C DP, CPBILC, LIPR, TSHX #### [facility] [address] [place] [address] Corporate Traffic Manager: Wang Day MD Eosinophils/100 WBC (Bld) 2 % Normal 1-4 [facility] Comment on above: Performed By: #### C DP, CPBILC, LIPR, TSHX #### [facility] [address] [place] [address] Corporate Traffic Manager: Wang Day MD Erythrocyte distribution width (RBC) [Ratio] 13.1 % Normal 11.8-14.4 [facility] Comment on above: Performed By: #### C DP, CPBILC, LIPR, TSHX #### [address] [place] [address] Corporate Traffic Manager: Wang Day MD Hematocrit (Bld) [Volume fraction] 45.3 % Normal 36.3-47.1 [facility] Comment on above: Performed By: #### C DP, CPBILC, LIPR, TSHX #### [address] [place] [phone] Corporate Traffic Manager: Wang Day MD Hemoglobin (Bld) [Mass/Vol] 14.8 g/dL Normal 11.9-15.1 [facility] Comment on above: Performed By: #### C DP, CPBILC, LIPR, TSHX #### [address] [place] [phone] Corporate Traffic Manager: Wang Day MD Immature granulocytes (Bld) [#/Vol] 0 % Normal 0 [facility] Comment on above: Performed By: #### C DP, CPBILC, LIPR, TSHX #### [facility] [address] [place] [address] Corporate Traffic Manager: Wang Day MD Lymphocytes (Bld) [#/Vol] 1.87 10*3/uL Normal 1.10-3.70 [facility] Comment on above: Performed By: #### C DP, CPBILC, LIPR, TSHX #### [facility] [address] [place] [address] Corporate Traffic Manager: Wang Day MD Lymphocytes/100 WBC (Bld) 33 % Normal 24-43 [facility] Comment on above: Performed By: #### C DP, CPBILC, LIPR, TSHX #### [facility] [address] [place] [address] Corporate Traffic Manager: Wang Day MD MCH (RBC) [Entitic mass] 30.9 pg Normal 25.2-33.5 [facility] Comment on above: Performed By: #### C DP, CPBILC, LIPR, TSHX #### [address] [place] [address] Corporate Traffic Manager: Wang Day MD MCHC (RBC) [Mass/Vol] 32.7 g/dL Normal 28.4-34.8 [facility] Comment on above: Performed By: #### C DP, CPBILC, LIPR, TSHX #### [address] [place] [address] Corporate Traffic Manager: Wang Day MD MCV (RBC) [Entitic vol] 94.6 fL Normal 82.6-102.9 [facility] Comment on above: Performed By: #### C DP, CPBILC, LIPR, TSHX #### [facility] [address] [place] [address] Corporate Traffic Manager: Wang Day MD Monocytes (Bld) [#/Vol] 0.34 10*3/uL Normal 0.10-1.20 [facility] Comment on above: Performed By: #### C DP, CPBILC, LIPR, TSHX #### [facility] [address] [place] [address] Corporate Traffic Manager: Wang Day MD Monocytes/100 WBC (Bld) 6 % Normal 3-12 [facility] Comment on above: Performed By: #### C DP, CPBILC, LIPR, TSHX #### [facility] [address] [place], [place] [address] Corporate Traffic Manager: Wang Day MD Neutrophil (Seg) 58 % Normal 36-65 [facility] Comment on above: Performed By: #### C DP, CPBILC, LIPR, TSHX #### [facility] [address] [place], [facility] Corporate Traffic Manager: Wang Day MD NRBC Automated 0.0 per 100 WBC Normal 0.0 [facility] Comment on above: Performed By: #### C DP, CPBILC, LIPR, TSHX #### [facility] [address] [place], [facility] Corporate Traffic Manager: Wang Day MD Platelet mean volume (Bld) [Entitic vol] 10.2 fL Normal 8.1-13.5 [facility] Comment on above: Performed By: #### C DP, CPBILC, LIPR, TSHX #### [facility] [address] [place], [place] [address] Corporate Traffic Manager: Wang Day MD Platelets (Bld) [#/Vol] 297 10*3/uL Normal 138-453 [facility] Comment on above: Performed By: #### C DP, CPBILC, LIPR, TSHX #### [facility] [address] [place] [address] Corporate Traffic Manager: Wang Day MD RBC (Bld) [#/Vol] 4.79 10*6/uL Normal 3.95-5.11 [facility] Comment on above: Performed By: #### C DP, CPBILC, LIPR, TSHX #### [facility] [address] [place] [address] Corporate Traffic Manager: Wang Day MD WBC (Bld) [#/Vol] 5.7 10*3/uL Normal 3.5-11.3 [facility] Comment on above: Performed By: #### C DP, CPBILC, LIPR, TSHX #### [facility] [address] [place] [address] Corporate Traffic Manager: Wang Day MD Auto Diff Performed NOT REPORTED Normal [facility] Comment on above: Performed By: #### C DP, CPBILC, LIPR, TSHX #### [facility] [address] [place], [place] [phone] Corporate Traffic Manager: Wang Day MD Platelets (Bld) [#/Vol] NOT REPORTED Normal [facility] Comment on above: Performed By: #### C DP, CPBILC, LIPR, TSHX #### [facility] [address] [place] [address] Corporate Traffic Manager: Wang Day MD RBC morphology finding Nom (Bld) NOT REPORTED Normal [facility] Comment on above: Performed By: #### C DP, CPBILC, LIPR, TSHX #### [facility] [address] [place] [address] Corporate Traffic Manager: Wang Day MD WBC Morphology NOT REPORTED Normal [facility] Comment on above: Performed By: #### C DP, CPBILC, LIPR, TSHX #### [facility] [address] [place], [place] [phone] Corporate Traffic Manager: Wang Day MD [facility] 10-23-2018 Cholesterol [Mass/Vol] 218 mg/dL High (<200) [facility] Work Phone: Comment on above: Note: Cholesterol Gu idelines: <200 Desirable 200-240 Borderline >240 Undesirable Responsible Observer: JOSIE ASHBYGE (1831) Triglyceride [Mass/Vol] 131 mg/dL (<150) [facility] Work Phone: Comment on above: Note: Triglyceride G uidelines: <150 Desirable 150-199 Borderline 200-499 High >499 Very high Based on AHA Guidelines for fasting triglyceride, February 2012. Responsible Observer: JOSIE NAWAF (1831) Comp Metab w/Bili Pron 10-23 (cont.) Normal [facility] Comment on above: Result Comment: Aver age GFR for 50-59 years old: 93 mL/min/1.73sq m Chronic Kidney Disease: <60 mL/min/1.73sq m Kidney failure: <15 mL/min/1.73sq m eGFR calculated using average adult body mass. Additional eGFR calculator available at: http://www.Anytime DD/multiple_crcl_2011.htm Performed By: #### C DP, CPBILC, LIPR, TSHX #### [facility] [address] [place] [address] [place] [address] Corporate Traffic Manager: Wang Day MD Albumin [Mass/Vol] 4.2 g/dL Normal 3.5-5.2 [facility] Comment on above: Performed By: #### C DP, CPBILC, LIPR, TSHX #### [facility] [address] [place] [address] [place] [address] Corporate Traffic Manager: Wang Day MD Albumin/Globulin [Mass ratio] 1.2 {ratio} Normal 1.0-2.5 [facility] Comment on above: Performed By: #### C DP, CPBILC, LIPR, TSHX #### [facility] [address] [place] [address] Corporate Traffic Manager: Wang Day MD Alkaline Phos 101 U/L Normal 35-104 [facility] Comment on above: Performed By: #### C DP, CPBILC, LIPR, TSHX #### [facility] [address] [place] [address] Corporate Traffic Manager: Wang Day MD ALT [Catalytic activity/Vol] 15 U/L Normal 5-33 [facility] Comment on above: Performed By: #### C DP, CPBILC, LIPR, TSHX #### [facility] [address] [place] [address] Corporate Traffic Manager: Wang Day MD Anion gap [Moles/Vol] 12 mmol/L Normal 9-17 [facility] Comment on above: Performed By: #### C DP, CPBILC, LIPR, TSHX #### [facility] [address] [place], [place] 1977183 Corporate Traffic Manager: Wang Day MD AST [Catalytic activity/Vol] 15 U/L Normal <32 [facility] Comment on above: Performed By: #### C DP, CPBILC, LIPR, TSHX #### [facility] [address] [place], [place] [phone] Corporate Traffic Manager: Wang Day MD Bilirubin Ql (U) 0.24 mg/dL Low 0.3-1.2 [facility] Comment on above: Performed By: #### C DP, CPBILC, LIPR, TSHX #### [address] [place], [place] [phone] Corporate Traffic Manager: Wang Day MD Bilirubin, Indirect CANNOT BE CALCULATED Normal 0.00-1 .00 [facility] Comment on above: Performed By: #### C DP, CPBILC, LIPR, TSHX #### [facility] [address] [place], [place] [phone] Corporate Traffic Manager: Wang Day MD Bilirubin.direct [Mass/Vol] mg/dL Normal <0.31 [facility] Comment on above: Performed By: #### C DP, CPBILC, LIPR, TSHX #### [facility] [address] [place], [place] [phone] Corporate Traffic Manager: Wang Day MD Calcium [Mass/Vol] 9.3 mg/dL Normal 8.6-10.4 [facility] Comment on above: Performed By: #### C DP, CPBILC, LIPR, TSHX #### [facility] [address] [place], [place] [phone] Corporate Traffic Manager: Wang Day MD Chloride [Moles/Vol] 102 mmol/L Normal 98-107 [facility] Comment on above: Performed By: #### C DP, CPBILC, LIPR, TSHX #### [facility] [address] [place] [address] Corporate Traffic Manager: Wang Day MD CO2 [Moles/Vol] 27 mmol/L Normal 20-31 [facility] Comment on above: Performed By: #### C DP, CPBILC, LIPR, TSHX #### [facility] [address] [place], [place] [id number] Corporate Traffic Manager: Wang Day MD Creatinine [Mass/Vol] 0.64 mg/dL Normal 0.50-0.90 [facility] Comment on above: Performed By: #### C DP, CPBILC, LIPR, TSHX #### [facility] [address] [place], [place] [id number] Corporate Traffic Manager: Wang Day MD GFR, Amer >60 Normal >60 [facility] Comment on above: Performed By: #### C DP, CPBILC, LIPR, TSHX #### [facility] [address] [place], [place] [id number] Corporate Traffic Manager: Wang Day MD GFR,non Amer >60 Normal >60 [facility] Comment on above: Performed By: #### C DP, CPBILC, LIPR, TSHX #### [facility] [address] [place] [address] Corporate Traffic Manager: Wang Day MD Glucose [Mass/Vol] 123 mg/dL High 70-99 [facility] Comment on above: Performed By: #### C DP, CPBILC, LIPR, TSHX #### [facility] [address] [place] [address] Corporate Traffic Manager: Wang Day MD Potassium [Moles/Vol] 4.6 mmol/L Normal 3.7-5.3 [facility] Comment on above: Performed By: #### C DP, CPBILC, LIPR, TSHX #### [facility] [address] [place] [address] Corporate Traffic Manager: Wang Day MD Protein [Mass/Vol] 7.6 g/dL Normal 6.4-8.3 [facility] Comment on above: Performed By: #### C DP, CPBILC, LIPR, TSHX #### [facility] [address] [place] [address] Corporate Traffic Manager: Wang Day MD Sodium [Moles/Vol] 141 mmol/L Normal 135-144 [facility] Comment on above: Performed By: #### C DP, CPBILC, LIPR, TSHX #### [facility] [address] [place] [address] Corporate Traffic Manager: Wang Day MD Staging: Normal [facility] Comment on above: Result Comment: Stag e 1: Some kidney damage normal GFR Stage 2: Mild kidney damage GFR 60-89 Stage 3: Moderate kidney damage GFR 30-59 Stage 4: Severe kidney damage GFR 15-29 Stage 5: Severe kidney damage GFR <15 ESRD - chronic treatment by dialysis or transplant Performed By: #### C DP, CPBILC, LIPR, TSHX #### [facility] [address] [place] [address] Corporate Traffic Manager: Wang Day MD Urea nitrogen [Mass/Vol] 15 mg/dL Normal 6-20 [facility] Comment on above: Performed By: #### C DP, CPBILC, LIPR, TSHX #### [facility] [address] [place], [place] [id number] Corporate Traffic Manager: Wang Day MD Hematologyon 10-23-2018 Basophils/100 WBC (Bld) 1 % (0-2) [facility] Work Phone: Comment on above: Note: Responsible Ob fine dining server: XNT AUTOFILE (3019) Eosinophils (Bld) [#/Vol] 0.14 10*3/uL (0.00-0.44) [facility] Work Phone: Comment on above: Note: Responsible Ob fine dining server: XNT AUTOFILE (3019) Eosinophils/100 WBC (Bld) 2 % (1-4) [facility] Work Phone: Comment on above: Note: Responsible Ob fine dining server: XNT AUTOFILE (3019) Hematocrit (Bld) [Volume fraction] 45.3 % (36.3-47.1) [facility] Work Phone: Comment on above: Note: Responsible Ob fine dining server: XNT AUTOFILE (3019) Hemoglobin (Bld) [Mass/Vol] 14.8 g/dL (11.9-15.1) [facility] Work Phone: Comment on above: Note: Responsible Ob fine dining server: XNT AUTOFILE (3019) Lymphocytes (Bld) [#/Vol] 1.87 10*3/uL (1.10-3.70) [facility] Work Phone: Comment on above: Note: Responsible Ob fine dining server: XNT AUTOFILE (3019) Lymphocytes/100 WBC (Bld) 33 % (24-43) [facility] Work Phone: Comment on above: Note: Responsible Ob fine dining server: XNT AUTOFILE (3019) MCH (RBC) [Entitic mass] 30.9 pg (25.2-33.5) [facility] Work Phone: Comment on above: Note: Responsible Ob fine dining server: XNT AUTOFILE (3019) MCV (RBC) [Entitic vol] 94.6 fL (82.6-102.9) [facility] Work Phone: Comment on above: Note: Responsible Ob fine dining server: XNT AUTOFILE (3019) Monocytes (Bld) [#/Vol] 0.34 10*3/uL (0.10-1.20) [facility] Work Phone: Comment on above: Note: Responsible Ob fine dining server: XNT AUTOFILE (3019) Monocytes/100 WBC (Bld) 6 % (3-12) [facility] Work Phone: Comment on above: Note: Responsible Ob fine dining server: XNT AUTOFILE (3019) Platelets (Bld) [#/Vol] NOT REPORTED [facility] Work Phone: Platelets (Bld) [#/Vol] 297 10*3/uL (138-453) [facility] Work Phone: Comment on above: Note: Responsible Ob fine dining server: XNT AUTOFILE (9) RBC (Bld) [#/Vol] 4.79 10*6/uL (3.95-5.11) [facility] Work Phone: Comment on above: Note: Responsible Ob fine dining server: XNT AUTOFILE (3019) RBC morphology finding Nom (Bld) NOT REPORTED [facility] Work Phone: WBC (Bld) [#/Vol] 0.0 per_100_WBC (0.0) [facility] Work Phone: Comment on above: Note: Responsible Ob fine dining server: XNT AUTOFILE (3019) WBC (Bld) [#/Vol] 5.7 10*3/uL (3.5-11.3) [facility] Work Phone: Comment on above: Note: Responsible Ob fine dining server: XNT AUTOFILE (3019) Lipid Profileon 10-23-2018 Cholesterol [Mass/Vol] 218 mg/dL High <200 [facility] Comment on above: Result Comment: Cholesterol Guidelines: <200 Desirable 200-240 Borderline >240 Undesirable Performed By: #### C DP, CPBILC, LIPR, TSHX #### [facility] [address] [place] [address] Corporate Traffic Manager: Wang Day MD Cholesterol in HDL [Mass/Vol] 57 mg/dL Normal >40 [facility] Comment on above: Result Comment: HDL Guidelines: <40 Undesirable 40-59 Borderline >59 Desirable Performed By: #### C DP, CPBILC, LIPR, TSHX #### [facility] [address] [place] [address] Corporate Traffic Manager: Wang Day MD Cholesterol in LDL [Mass/Vol] 135 mg/dL High 0-130 [facility] Comment on above: Result Comment: LDL Guidelines: <100 Desirable 100-129 Near to/above Desirable 130-159 Borderline >159 Undesirable Direct (measured) LDL and calculated LDL are not interchangeable tests. Performed By: #### C DP, CPBILC, LIPR, TSHX #### [facility] [address] [place] [address] Corporate Traffic Manager: Wang Day MD Cholesterol.total/C holesterol in HDL [Mass ratio] 3.8 {ratio} Normal <5 [facility] Comment on above: Performed By: #### C DP, CPBILC, LIPR, TSHX #### [facility] [address] [place] [address] Corporate Traffic Manager: Wang Day MD Triglyceride [Mass/Vol] 131 mg/dL Normal <150 [facility] Comment on above: Result Comment: Triglyceride Guidelines: <150 Desirable 150-199 Borderline 200-499 High >499 Very high Based on AHA Guidelines for fasting triglyceride, February 2012. Performed By: #### C DP, CPBILC, LIPR, TSHX #### [facility] [address] [place] [address] Corporate Traffic Manager: Wang Day MD Cholesterol in VLDL [Mass/Vol] NOT REPORTED Normal 1-30 [facility] Comment on above: Performed By: #### C DP, CPBILC, LIPR, TSHX #### [facility] [address] [place] [address] Corporate Traffic Manager: Wang Day MD Metabolic Panelon 10-23-2018 Albumin [Mass/Vol] 4.2 g/dL (3.5-5.2) [facility] Work Phone: Comment on above: Note: Responsible Ob fine dining server: JOSIE VEDAILYS-LILCURTIS (1831) ALT [Catalytic activity/Vol] 15 U/L (5-33) [facility] Work Phone: Comment on above: Note: Responsible Ob fine dining server: JOSIE VEZDOS-LILGE (1831) Anion gap [Moles/Vol] 12 mmol/L (9-17) [facility] Work Phone: Comment on above: Note: Responsible Ob fine dining server: JOSIE VEZDOS-LILGE (1831) AST [Catalytic activity/Vol] 15 U/L (<32) [facility] Work Phone: Comment on above: Note: Responsible Ob fine dining server: JOSIE VEZDOS-LILGE (1831) Bilirubin [Mass/Vol] 0.24 mg/dL Low (0.3-1.2) [facility] Work Phone: Comment on above: Note: Responsible Ob fine dining server: JOSIE VEZDOS-LILGE (1831) Bilirubin.direct [Mass/Vol] mg/dL (<0.31) [facility] Work Phone: Comment on above: Note: Responsible Ob fine dining server: JOSIE VEZDOS-LILGE (1831) Calcium [Mass/Vol] 9.3 mg/dL (8.6-10.4) [facility] Work Phone: Comment on above: Note: Responsible Ob fine dining server: JOSIE VEZDOS-LILGE (1831) Chloride [Moles/Vol] 102 mmol/L (98-107) [facility] Work Phone: Comment on above: Note: Responsible Ob fine dining server: JOSIE MCCRACKEN (1831) CO2 [Moles/Vol] 27 mmol/L (20-31) [facility] Work Phone: Comment on above: Note: Responsible Ob fine dining server: JOSIE LONNY-ANA (1831) Creatinine [Mass/Vol] 0.64 mg/dL (0.50-0.90) [facility] Work Phone: Comment on above: Note: Responsible Ob fine dining server: JOSIE MCCRACKEN (1831) Glucose [Mass/Vol] 123 mg/dL High (70-99) [facility] Work Phone: Comment on above: Note: Responsible Ob fine dining server: JOSIE MCCRACKEN (1831) Potassium [Moles/Vol] 4.6 mmol/L (3.7-5.3) [facility] Work Phone: Comment on above: Note: Responsible Ob fine dining server: JOSIE MCCRACKEN (1831) Protein [Mass/Vol] 7.6 g/dL (6.4-8.3) [facility] Work Phone: Comment on above: Note: Responsible Ob fine dining server: JOSIE MCCRACKEN (1831) Sodium [Moles/Vol] 141 mmol/L (135-144) [facility] Work Phone: Comment on above: Note: Responsible Ob fine dining server: JOSIE MCCRACKEN (1831) Urea nitrogen [Mass/Vol] 15 mg/dL (6-20) [facility] Work Phone: Comment on above: Note: Responsible Ob fine dining server: JOSIE MCCRACKEN (1831) Otheron 10-23-2018 (cont.) See Note [facility] Work Phone: Comment on above: Note: Average GFR fo r 50-59 years old: 93 mL/min/1.73sq mChronic Kidney Disease: <60 mL/min/1.73sq mKidney failure: <15 mL/min/1.73sq m eGFR calculated using average adult body mass. Additional eGFR calculator available at: http://www.[employer] DD/multiple_crcl_2011.htm Responsible Observer: JOSIE MCCRACKEN (1831) Abs. Basophil 0.04 k/uL (0.00-0.20) [facility] Work Phone: Comment on above: Note: Responsible Ob fine dining server: XNT AUTOFILE (3019) Abs.Imm.Granulocyte <0.03 k/uL (0.00-0.30) [facility] Work Phone: Comment on above: Note: Responsible Ob fine dining server: XNT AUTOFILE (3019) Abs.Neutrophil (Seg) 3.34 k/uL (1.50-8.10) [facility] Work Phone: Comment on above: Note: Responsible Ob fine dining server: XNT AUTOFILE (3019) Albumin/Glob Ratio 1.2 (1.0-2.5) [facility] Work Phone: Comment on above: Note: Responsible Ob fine dining server: JOSIE MCCRACKEN (1831) Alkaline Phos 101 U/L (35-104) [facility] Work Phone: Comment on above: Note: Responsible Ob fine dining server: JOSIE MCCRACKEN (1831) Auto Diff Performed NOT REPORTED [facility] Work Phone: Bilirubin, Indirect CANNOT BE CALCULATED mg/dL (0.00-1.00) [facility] Work Phone: Comment on above: Note: Responsible Ob fine dining server: JOSIE MCCRACKEN (1831) Cholesterol,HDL 57 mg/dL (>40) [facility] Work Phone: Comment on above: Note: HDL Guidelines : <40 Undesirable 40-59 Borderline >59 Desirable Responsible Observer: JOSIE PAVITHRAMEGAN (1831) Cholesterol,LDL 135 mg/dL High (0-130) [facility] Work Phone: Comment on above: Note: LDL Guidelines : <100 Desirable 100-129 Near to/above Desirable 130-159 Borderline >159 Undesirable Direct (measured) LDL and calculated LDL are not interchangeable tests.Responsible Observer: JOSIE MCCRACKEN (1831) Cholesterol,VLDL NOT REPORTED mg/dL (1-30) [facility] Work Phone: Cholesterol.total/C holesterol in HDL [Mass ratio] 3.8 {ratio} (<5) [facility] Work Phone: Comment on above: Note: Responsible Ob fine dining server: JOSIE MCCRACKEN (1831) Erythrocyte distribution width (RBC) [Ratio] 13.1 % (11.8-14.4) [facility] Work Phone: Comment on above: Note: Responsible Ob fine dining server: XNT AUTOFILE (3018) GFR, Amer >60 mL/min (>60) [facility] Work Phone: Comment on above: Note: Responsible Ob fine dining server: JOSIE MCCRACKEN (1831) GFR,non Amer >60 mL/min (>60) [facility] Work Phone: Comment on above: Note: Responsible Ob fine dining server: JOSIE MCCRACKEN (1831) Immature granulocytes (Bld) [#/Vol] 0 % (0) [facility] Work Phone: Comment on above: Note: Responsible Ob fine dining server: XNT AUTOFILE (3018) MCHC (RBC) [Mass/Vol] 32.7 g/dL (28.4-34.8) [facility] Work Phone: Comment on above: Note: Responsible Ob fine dining server: XNT AUTOFILE (3018) Performing Lab: see note [facility] Work Phone: Comment on above: Note: [facility] [address] [place] [id number] Platelet mean volume (Bld) [Entitic vol] 10.2 fL (8.1-13.5) [facility] Work Phone: Comment on above: Note: Responsible Ob fine dining server: XNT AUTOFILE (1919) Reported Physicians See Note [facility] Work Phone: Comment on above: Note: Reported Physi cians:Ordering: Sean Laura AAttending: Waller CynthiaReferring: Waller Laura Segmented neutrophils/100 WBC (Bld) 58 % (36-65) [facility] Work Phone: Comment on above: Note: Responsible Ob fine dining server: XNT AUTOFILE (4103) Staging: See Note [facility] Work Phone: Comment on above: Note: Stage 1: Some kidney damage normal GFRStage 2: Mild kidney damage GFR 60-89Stage 3: Moderate kidney damage GFR 30-59Stage 4: Severe kidney damage GFR 15-29Stage 5: Severe kidney damage GFR <15ESRD - chronic treatment by dialysis or transplantResponsible Observer: JOSIE MCCRACKEN (183) Thyroid Stim. Horm. 1.27 mIU/L (0.30-5.00) [facility] Work Phone: Comment on above: Note: Responsible Ob fine dining server: JOSIE MCCRACKEN (1831) WBC Morphology NOT REPORTED [facility] Work Phone: TSH w/reflex to FT4on 2018 TSH Qn 1.27 m[IU]/L Normal 0.30-5.00 [facility] Comment on above: Performed By: #### C DP, CPBILC, LIPR, TSHX #### [facility] [address] [place] [address] Corporate Traffic Manager: Wang Day MD Vital Signs Date Time Vital Sign Value Performing Clinician Facility 07-03-2020 14:59-0500 BMI (Body Mass Index) 36.4 kg/m2 [facility] Work Phone: 07-03-2020 14:59-0500 Body Temperature 96.5 [degF] [facility] Work Phone: 07-03-2020 14:59-0500 Body weight 99.34 kg [facility] Work Phone: 07-03-2020 14:59-0500 BP Diastolic 72 mm[Hg] [facility] Work Phone: 07-03-2020 14:59-0500 BP Systolic 122 mm[Hg] [facility] Work Phone: 07-03-2020 14:59-0500 BSA (Body Surface Area) 2.06 m2 [facility] Work Phone: 07-03-2020 14:59-0500 Height 165.1 cm [facility] Work Phone: 07-03-2020 14:59-0500 Pulse (Heart Rate) 91 /min [facility] Work Phone: 07-03-2020 14:59-0500 Pulse Oximetry 98 % [facility] Work Phone: 07-03-2020 14:59-0500 Respiratory Rate 18 /min [facility] Work Phone: 06-27-2020 16:08-0500 BMI (Body Mass Index) 33.3 kg/m2 [facility] Work Phone: 06-27-2020 16:08-0500 Body weight 90.72 kg [facility] Work Phone: 06-27-2020 16:08-0500 BSA (Body Surface Area) 1.98 m2 [facility] Work Phone: 06-27-2020 16:08-0500 Height 165.1 cm [facility] Work Phone: 04-30-2020 17:49-0500 BMI (Body Mass Index) 34.3 kg/m2 [facility] Work Phone: 04-30-2020 17:49-0500 Body weight 90.72 kg [facility] Work Phone: 04-30-2020 17:49-0500 BSA (Body Surface Area) 1.96 m2 [facility] Work Phone: 04-30-2020 17:49-0500 Height 162.56 cm [facility] Work Phone: 11-16-2019 10:07-0400 BMI (Body Mass Index) 34.3 kg/m2 [facility] Work Phone: Comment on above: per patient report 11-16-2019 10:07-0400 Body weight 90.72 kg [facility] Work Phone: Comment on above: per patient report 11-16-2019 10:07-0400 BSA (Body Surface Area) 1.96 m2 [facility] Work Phone: Comment on above: per patient report 11-16-2019 10:07-0400 Height 162.56 cm [facility] Work Phone: Comment on above: per patient report 09-24-2019 13:33-0400 BMI (Body Mass Index) 33.7 kg/m2 [facility] Work Phone: Comment on above: per pt report 09-24-2019 13:33-0400 Body weight 86.18 kg [facility] Work Phone: Comment on above: per pt report 09-24-2019 13:33-0400 BSA (Body Surface Area) 1.89 m2 Laura Ramirez [facility] Work Phone: Comment on above: per pt report 09-24-2019 13:33-0400 Height 160.02 cm [facility] Work Phone: Comment on above: per pt report 04-25-2019 11:12-0500 BMI (Body Mass Index) 32.3 kg/m2 Laura Sean [facility]: 04-25-2019 11:12-0500 Body Temperature 97.6 [degF] Laura Nye [facility] Work Phone: 04-25-2019 11:12-0500 Body weight 88.17 kg [facility] Work Phone: 04-25-2019 11:12-0500 BP Diastolic 82 mm[Hg] [facility]: 04-25-2019 11:12-0500 BP Systolic 128 mm[Hg] [facility] Work Phone: 04-25-2019 11:12-0500 BSA (Body Surface Area) 1.95 m2 [facility] Work Phone: 04-25-2019 11:12-0500 Flow Rate 0 L/min [facility] Work [facility]: 04-25-2019 11:12-0500 Height 165.1 cm Laura Sean [facility] Work Phone: 04-25-2019 11:12-0500 Inhaled Oxygen Concentration 21 % Laura Nye [facility] Work Phone: 04-25-2019 11:12-0500 Pulse (Heart Rate) 75 /min Laura Sean [facility] Work Phone: 04-25-2019 11:12-0500 Pulse Oximetry 99 % Laurafranklin Ramirez [facility] Work Phone: 04-25-2019 11:12-0500 Respiratory Rate 18 /min [facility] Work [facility]: 09-14-2018 11:34-0400 BMI (Body Mass Index) 32.8 kg/m2 Laura [facility] Work Phone: 09-14-2018 11:34-0400 Body Temperature 99.1 [degF] [facility] Work Phone: 09-14-2018 11:34-0400 Body weight 89.36 kg [facility] Work Phone: 09-14-2018 11:34-0400 BP Diastolic 72 mm[Hg] [facility] Work Phone: 09-14-2018 11:34-0400 BP Systolic 134 mm[Hg] [facility] Work Phone: 09-14-2018 11:34-0400 BSA (Body Surface Area) 1.97 m2 [facility] Work Phone: 09-14-2018 11:34-0400 Flow Rate 0 L/min Laura [facility] Work Phone: 09-14-2018 11:34-0400 Height 165.1 cm [facility] Work Phone: 09-14-2018 11:34-0400 Inhaled Oxygen Concentration 21 % [facility] Work Phone: 09-14-2018 11:34-0400 Pulse (Heart Rate) 80 /min Laura Sean [facility] Work Phone: 09-14-2018 11:34-0400 Pulse Oximetry 98 % [facility] Work Phone: 09-14-2018 11:34-0400 Respiratory Rate 20 /min Laura [facility] Work Phone: Encounters Encounter Date Encounter Type Care Provider Facility Start: 10-14-2023 End: 10-14-2023 ambulatory SIDDHARTH OLIVER Not Available Start: 10-12-2023 End: 10-12-2023 ambulatory JORDON MICHELLE Not Available Start: 10-10-2023 End: 10-10-2023 ambulatory JORDON MICHELLE Not Available Start: 10-07-2023 End: 10-07-2023 ambulatory JORDON MICHELLE Not Available Start: 10-04-2023 End: 10-04-2023 ambulatory MCCAULEY FAWWAD Not Available Start: 09-30-2023 End: 09-30-2023 ambulatory JORDON MICHELLE Not Available Start: 09-28-2023 End: 09-28-2023 ambulatory JORDON MICHELLE Not Available Start: 09-21-2023 End: 09-21-2023 ambulatory SIDDHARTH OLIVER Not Available Start: 09-14-2023 End: 09-14-2023 ambulatory CMCAULEY FAWWAD Not Available Start: 06-30-2023 End: 06-30-2023 ambulatory MCCAULEY FAWWAD Not Available Start: 05-19-2023 End: 05-19-2023 ambulatory MCCAULEY FAWWAD Not Available Start: 01-31-2023 End: 02-01-2023 ambulatory Calin ESTEVEZ Facility:[facility] Start: 04-28-2022 End: 04-28-2022 ambulatory PAL ANDERSON Facility:[facility] Start: 02-17-2022 End: 02-18-[address] FABIANA CAPONE Facility:[facility] Start: 11-17-2021 End: 11-18-2021 ambulatory SHAIKH Sobeida DE LA CRUZ Facility:[facility] Start: 10-14-2021 End: 10-14-2021 ambulatory PAL ANDERSON Facility:[facility] Start: 10-13-2021 End: 10-13-2021 ambulatory SHAIKH Sobeida DE LA CRUZ Facility:[facility] Start: 09-26-2020 End: 01-19-2022 ambulatory None Provider Facility:[facility] Start: 07-03-2020 End: 07-03-2020 Established patient Laverne Garrett Work Phone: [facility] Work Phone: Start: 07-03-2020 End: 07-03-2020 Established patient Suzi Martinez Work Phone: [facility] Work Phone: Start: 06-27-2020 End: 06-27-2020 Telemedicine consultation with patient Suzi Martinez Work Phone: [facility] Work Phone: Start: 04-30-2020 End: 04-30-2020 General Jo Marcus Work Phone: [facility] Work Phone: Start: 04-30-2020 End: 04-30-2020 Telemedicine consultation with patient Thalia Block Work Phone: [facility] Work Phone: Start: 11-16-2019 End: 11-16-2019 Telemedicine consultation with patient Suzi Martinez Work Phone: [facility] Work Phone: Start: 09-24-2019 End: 09-24-2019 Telemedicine consultation with patient Suzi Martinez Work Phone: [facility] Work Phone: Start: 05-24-2019 End: 05-24-2019 Patient encounter procedure Carlitos Summers Work Phone: [facility] Work Phone: Start: 05-18-2019 End: 05-18-2019 Patient encounter procedure Maulik Geiger Work Phone: [facility] Work Phone: Start: 04-25-2019 End: 04-28-2019 Patient encounter procedure LAURA RAMIREZ [facility] Start: 04-25-2019 End: 04-25-2019 Established patient Princess Blackmon Work Phone: [facility]Gene Langley [facility] Work Phone: Start: 04-25-2019 End: 04-25-2019 Patient encounter procedure Maulik Geiger Work Phone: [facility] Work Phone: Start: 04-18-2019 End: 04-18-2019 Patient encounter procedure Laura Ramirez Work Phone: [facility] Work Phone: Start: 04-17-2019 Comprehensve oral evaluation Carlitos Summers Work Phone: [facility] Work Phone: Start: 04-17-2019 End: 04-17-2019 Emergency department patient visit Carlitos Summers Work Phone: [facility] Work Phone: Start: 12-17-2018 End: 12-18-2018 Emergency department patient visit [facility] Start: 12-12-2018 End: 12-13-2018 Patient encounter procedure KAYLA FREEMAN [facility] Start: 12-08-2018 End: 12-09-2018 Patient encounter procedure [facility] Start: 12-05-2018 End: 12-06-2018 Patient encounter procedure [facility] Start: 10-23-2018 End: 10-24-2018 Patient encounter procedure LAURA [facility] Start: 09-14-2018 End: 09-14-2018 New patient Laura Ramirez Work Phone: [facility] Work Phone: Procedures Date Procedure Procedure Detail Performing Clinician Start: 07-03-2020 Hemoglobin glycosylated a1c Suzi Martinez Work Phone: Start: 07-03-2020 Hepatitis c antibody An rivka Martinez Work Phone: Start: 07-03-2020 Psychotherapy w/judith ent 30 minutes Laverne Garrett Work Phone: Start: 07-03-2020 Pt-focused hlth risk assmt score doc stnd instrm Suzi Martinez Work Phone: Start: 04-30-2020 Psychotherapy w/judith ent 30 minutes Jo Velazquez Work Phone: Start: 04-30-2020 Pt tobacco screen rcvd tlk Thalia Umair Work Phone: Start: 11-16-2019 Blood occult fecal h gb deter ia qual feces 1-3 Suzi Martinez Work Phone: Start: 05-24-2019 Caries risk assess h igh risk Carlitos Summers Work Phone: Start: 05-24-2019 Intraor complete keke m series Carlitos Summers Work Phone: Start: 04-25-2019 Radex hand minimum 3 views RHETT NAQVI Start: 04-25-2019 Psychotherapy w/judith ent 30 minutes Princess Blackmon Work Phone: Start: 04-25-2019 Pt tobacco screen rcvd tlk Laura Ramirez Work Phone: Start: 04-17-2019 Panoramic image Carlitos Summers Work Phone: Start: 12-17-2018 Blood count complete auto&auto difrntl wbc RHETT NAQVI Start: 12-17-2018 C-reactive protein RHETT NAQVI Start: 12-17-2018 Urnls dip stick/tabl et reagent auto microscopy RHETT NAQVI Start: 12-13-2018 AMB REFERRAL TO CARD IAC REHAB KAYLA FREEMAN Start: 12-13-2018 DISCHARGE PATIENT AMEEAliya UMANZORJOSE Start: 12-13-2018 DIET CARDIAC AMEEAliya CUNNING[facility]AM [facility] Start: 12-13-2018 COMPUTED TOMOGRAPHY TECHNICIAN REPORT AMLINWOOD SHAH Start: 12-13-2018 INITIATE OXYGEN THER APY PROTOCOL AMLINWOOD FREEMAN Start: 12-13-2018 Basic metabolic pane l calcium total AMEER PETE Start: 12-13-2018 Blood count complete automated AMEER PETE Start: 12-12-2018 FULL CODE KAYLA DECKER Start: 12-12-2018 INITIATE OXYGEN THER APY PROTOCOL KAYLA FREEMAN Start: 12-12-2018 NOTIFY PHYSICIAN (SPECIFY) KAYLA FREEMAN Start: 12-12-2018 NURSING COMMUNICATION Magdalena KENNEDY FREEMAN Start: 12-12-2018 PUNCTURE SITE CARE JESSICA FREEMAN Start: 12-12-2018 BEDREST KAYLA CUNINNGHAM [facility] Start: 12-12-2018 PATIENT STATUS (FROM ED OR OR/PROCEDURAL) KAYLA FREEMAN Start: 12-12-2018 TELEMETRY MONITORING AM LINWOOD FREEMAN Start: 12-12-2018 VITAL SIGNS KAYLA CUNNING[place]AM [facility] Start: 12-12-2018 WOUND CARE KAYLA CUNN[facility] Start: 12-12-2018 PATIENT STATUS (FROM ED OR OR/PROCEDURAL) KAYLA FREEMAN Start: 12-12-2018 ACTIVATED CLOTTING TIME KAYLA FREEMAN Start: 12-12-2018 R & l hrt cath w/njx l ventriculog img s&i KAYLA FREEMAN Start: 12-12-2018 VERIFY INFORMED CONSENT KAYLA FREEMAN Start: 12-12-2018 COMPUTED TOMOGRAPHY TECHNICIAN REPORT KAYLA SHAH Start: 12-08-2018 Basic metabolic pane l calcium total ALI AHMAD Start: 12-08-2018 Blood count complete auto&auto difrntl wbc ALI AHMAD Start: 12-05-2018 Cv strs tst xers&/or rx cont ecg w/o i&r ALI AHMAD Start: 12-05-2018 Echo tthrc r-t 2d w/wom-mode compl spec&colr d ALI AHMAD Start: 10-23-2018 Assay of thyroid stimulating hormone tsh ALI AHMAD Start: 10-23-2018 Blood count complete auto&auto difrntl wbc ALI AHMAD Start: 10-23-2018 Comprehensive metabo lic panel ALI AHMAD Start: 10-23-2018 Lipid panel ALI AHMAD Start: 09-14-2018 ANXIETY DISORDER NOS Cy nthia Sean Start: 09-14-2018 DEPRESSION Laurafranklin dalton Start: 09-14-2018 HYPERTENSION (SYSTEMIC) Laura Ramirez Start: 09-14-2018 Lig/trnsxj flp tube abdl/vag appr uni/bi Suzi Martinez Start: 09-14-2018 Ligation of fallopian tube Laura Ramirez Start: 09-14-2018 past medical/surgica l history [use for free text] Laura Ramirez Start: 09-14-2018 Surgical procedure Spencer Ramirez Plan of Treatment Date Care Activity Detail Author Start: 06-30-2020 Medical Establ ished Patient [facility] Work Phone: Start: 05-30-2020 _SARS-CoV-2 COVID19 ariel t [facility] Work Phone: Start: 05-15-2020 Telemedicine E stablisted Patient [facility] Work Phone: Start: 11-17-2019 Stool Kit CodyIn Rea se [facility] Work Phone: Start: 05-29-2019 Medical Establ ished Patient [facility] Work Phone: Start: 05-25-2019 XR Hand 3 Views ([id number]) [facility] Work Phone: Start: 05-10-2019 Dental Miscellaneous Ti [facility] Work Phone: Start: 04-25-2019 [facility] Work Phone: Comment on above: Note: Please make a referral to:Deformed thick great toe nail, nail fungus Start: 09-14-2018 Cardiology [facility] Work Phone: Comment on above: Note: Please make a referral to: Payers Date Payer Category Payer Medicaid [id number] 2018 Unknown [id number] 1965 Unknown [id number] 2.16.8 40.1.215666.3.579.2.175 1964 Unknown [id number] 2.16.8 40.1.719990.3.579.2.173 1964 Unknown [id number] 2.16.8 40.1.502401.3.579.2.173 1964 Unknown [id number] 2.16.8 40.1.299087.3.579.2.173 1964 Unknown [id number] 2.16.8 40.1.981135.3.579.2.173 1964 Unknown [id number] 2.16.8 40.1.506723.3.579.2.173 1964 Unknown [id number] 2.16.8 40.1.913500.3.579.2.173 1964 Unknown [id number] 2.16.8 40.1.221638.3.579.2.173 1964 Unknown [id number] 2.16.84 0.1.827103.3.579.2.718 1964 Unknown [id number] 2.16.84 0.1.819013.3.579.2.593 1964 Unknown [id number] 2.16.84 0.1.573078.3.579.2.593 1964 Unknown [id number] 2.16.84 0.1.892869.3.579.2.593 1964 Unknown [id number] 2.16.84 0.1.717320.3.579.2.593 1964 Unknown [id number] 2.16.84 0.1.259324.3.579.2.593 1964 Unknown [id number] 2.16.84 0.1.664354.3.579.2.1259 1964 Unknown [id number] 2.16.84 0.1.651333.3.579.2.1259 1964 Unknown [id number] 2.16.84 0.1.191531.3.579.2.1259 1964 Unknown [id number] 2.16.84 0.1.729437.3.579.2.1259 1964 Unknown [id number] 2.16.84 0.1.569965.3.579.2.1259 1964 Unknown [id number] 2.16.84 0.1.903964.3.579.2.1259 1964 Unknown [id number] 2.16.84 0.1.815900.3.579.2.1258 1964 Unknown [id number] 2.16.84 0.1.835552.3.579.2.1258 1964 Unknown [id number] 2.16.84 0.1.955629.3.579.2.1258 1964 Unknown [id number] 2.16.84 0.1.865759.3.579.2.1258 1964 Unknown [id number] 2.16.84 0.1.760018.3.579.2.1258 1964 Unknown [id number] 2.16.84 0.1.696293.3.579.2.1258 1964 Unknown [id number] 2.16.84 0.1.149034.3.579.2.1258 1964 Unknown [id number] 2.16.84 0.1.458435.3.579.2.1258 1964 Unknown [id number] 2.16.84 0.1.298196.3.579.2.1258 1964 Unknown [id number] 2.16.84 0.1.542689.3.579.2.1258 1964 Unknown [id number] 2.16.84 0.1.288808.3.579.2.1258 1964 Unknown [id number] 2.16.84 0.1.388234.3.579.2.1259 1959 Self-pay 1959 Self-pay [id number] 1959 Unknown [id number] Self-pay [id number] 2.16.840 .1.385690.3.140.1.39913.5.4 Social History Date Type Detail Facility Assertion Gender identity finding (finding) [facility] Work Phone: Assertion Finding of sexua l orientation (finding) [facility] Work Phone: Assertion Tobacco user (finding) Healt [facility] Work Phone: Tobacco smoking status Unknown if ever smoked [facility] Work Phone: Assertion Exposure to poll ution (event) [facility] Work Phone: Assertion [facility] Work Phone: Assertion Alcohol consumpt ion screening (procedure) [facility] Work Phone: Assertion Emotional stress (finding) [facility] Work Phone: Assertion Employment findi ng (finding) [facility] Work Phone: NEGATED: Highlighted row Assertion Current drinker of alcohol (finding) [facility] Work Phone: NEGATED: Highlighted row Assertion Finding relating to drug misuse behavior (finding) [facility] Work Phone: NEGATED: Highlighted row Assertion Exposure to pollution (event) [facility] Work Phone: NEGATED: Highlighted row Assertion Illicit drug use (finding) [facility] Work Phone: NEGATED: Highlighted row Assertion Misuse of prescription only drugs (finding) [facility] Work Phone: NEGATED: Highlighted row Assertion [facility] Work Phone: Mental Status Date Assessment Result Facility Cognitive function Cognitive fun ctioning was normal Cognitive function finding (finding) [facility] Work Phone: Clinical Note 04-28-2022 [...] by: JUNITO OCHOA Date: 2022-04-28 12:58 [facility] Summary Purpose Family History No Family History [...] NOS Medical New Patient with Laura Sean GREENHOUSE TECHNICIAN 09/14/2018 Benign essential hypertension Medical Ne w Patient with Laura Sean GREENHOUSE TECHNICIAN 09/14/2018 Coronary artery disease Medical New Judith ent with Laura Sean GREENHOUSE TECHNICIAN 09/14/2018 Diabetes Risk Test Score was five score 09/14/2018 Medical New Patient with Laura Sean GREENHOUSE TECHNICIAN 09/14/2018 Hyperlipidemia Medical New Patient with Laura Sean GREENHOUSE TECHNICIAN 09/14/2018 Obesity due to excess calories Medical N ew Patient with Laura Waller GREENHOUSE TECHNICIAN 09/14/2018 Routine history and physical Medical New Patient with Laura Waller GREENHOUSE TECHNICIAN 09/14/2018 Z68.32 - Body mass index (BM I) 32.0-32.9, adult Medical New Patient with Laura Waller GREENHOUSE TECHNICIAN 09/14/2018 Findings Encounter Date Recurrent major depression i n full remission BH Established Patient with Princess PUENTE-S 04/25/2019 Arthralgia of right hand Medical Establi shed Patient with Laura Sean GREENHOUSE TECHNICIAN 04/25/2019 Depression Medical Established Patient with Laura Sean GREENHOUSE TECHNICIAN 04/25/2019 Fagerstrom Score was 0 Medical Establish ed Patient with Laura Ramirez GREENHOUSE TECHNICIAN 04/25/2019 Obesity due to excess calories Medical E stablished Patient with Laura Nye GREENHOUSE TECHNICIAN 04/25/2019 Onychomycosis of the right 1st toenail M edical Established Patient with Laura Nye GREENHOUSE TECHNICIAN 04/25/2019 PHQ-9: total score was three 04/25/2019 Medical Established Patient with Laura Nye GREENHOUSE TECHNICIAN 04/25/2019 Z68.31 - Body mass index (BM I) 31.0-31.9 adult Medical Established Patient with Laura Ramirez GREENHOUSE TECHNICIAN 04/25/2019 Anxiety disorder NOS Medical New Patient with Laura Sean GREENHOUSE TECHNICIAN 09/14/2018 Benign essential hypertension Medical Ne w Patient with Laura Sean GREENHOUSE TECHNICIAN 09/14/2018 Coronary artery disease Medical New Judith ent with Laura Ramirez GREENHOUSE TECHNICIAN 09/14/2018 Diabetes Risk Test Score was five score 09/14/2018 Medical New Patient with Laura Ramirez GREENHOUSE TECHNICIAN 09/14/2018 Hyperlipidemia Medical New Patient with Laura Ramirez GREENHOUSE TECHNICIAN 09/14/2018 Obesity due to excess calories Medical N ew Patient with Laura Sean GREENHOUSE TECHNICIAN 09/14/2018 Routine history and physical Medical New Patient with Laura Ramirez GREENHOUSE TECHNICIAN 09/14/2018 Z68.32 - Body mass index (BM I) 32.0-32.9, adult Medical New Patient with Laura Ramirez GREENHOUSE TECHNICIAN 09/14/2018 Findings Encounter Date Upper respiratory infection Telemedicine with Suzi Martinez [facility] 09/24/2019 Recurrent major depression i n full remission BH Established Patient with Princess BENSON 04/25/2019 Arthralgia of right hand Medical Establi shed Patient with Laura Sean GREENHOUSE TECHNICIAN 04/25/2019 Depression Medical Established Patient with Laura Sean GREENHOUSE TECHNICIAN 04/25/2019 Fagerstrom Score was 0 Medical Establish ed Patient with Laura Nye GREENHOUSE TECHNICIAN 04/25/2019 Obesity due to excess calories Medical E stablished Patient with Laura Nye GREENHOUSE TECHNICIAN 04/25/2019 Onychomycosis of the right 1st toenail M edical Established Patient with Laura Nye GREENHOUSE TECHNICIAN 04/25/2019 PHQ-9: total score was three 04/25/2019 Medical Established Patient with Laura Ramirez GREENHOUSE TECHNICIAN 04/25/2019 Z68.31 - Body mass index (BM I) 31.0-31.9 adult Medical Established Patient with Laura Waller GREENHOUSE TECHNICIAN 04/25/2019 Anxiety disorder NOS Medical New Patient with Laura Sean GREENHOUSE TECHNICIAN 09/14/2018 Benign essential hypertension Medical Ne w Patient with Laura Waller GREENHOUSE TECHNICIAN 09/14/2018 Coronary artery disease Medical New Judith ent with Laura Sean GREENHOUSE TECHNICIAN 09/14/2018 Diabetes Risk Test Score was five score 09/14/2018 Medical New Patient with Laura Waller GREENHOUSE TECHNICIAN 09/14/2018 Hyperlipidemia Medical New Patient with Laura Sean GREENHOUSE TECHNICIAN 09/14/2018 Obesity due to excess calories Medical N ew Patient with Laura Sean GREENHOUSE TECHNICIAN 09/14/2018 Routine history and physical Medical New Patient with Laura Sean GREENHOUSE TECHNICIAN 09/14/2018 Z68.32 - Body mass index (BM I) 32.0-32.9, adult Medical New Patient with Laura Sean GREENHOUSE TECHNICIAN 09/14/2018 Findings Encounter Date Body mass index Telemedicine with An rivka Martinez [facility] 11/16/2019 Depression Telemedicine with An rivka Martinez [facility] 11/16/2019 Hypertension Telemedicine with An rivka Martinez [facility] 11/16/2019 Obesity due to excess calories Telemedic ine with Suzi Martinez [facility] 11/16/2019 Upper respiratory infection Telemedicine with Suzi Martinez [facility] 09/24/2019 Recurrent major depression i n full remission BH Established Patient with Princess BENSON 04/25/2019 Arthralgia of right hand Medical Establi shed Patient with Laura Waller GREENHOUSE TECHNICIAN 04/25/2019 Depression Medical Established Patient with Laura Sean GREENHOUSE TECHNICIAN 04/25/2019 Fagerstrom Score was 0 Medical Establish ed Patient with Laura Waller GREENHOUSE TECHNICIAN 04/25/2019 Obesity due to excess calories Medical E stablished Patient with Laura Waller GREENHOUSE TECHNICIAN 04/25/2019 Onychomycosis of the right 1st toenail M edical Established Patient with Laura Waller GREENHOUSE TECHNICIAN 04/25/2019 PHQ-9: total score was three 04/25/2019 Medical Established Patient with Laura Waller GREENHOUSE TECHNICIAN 04/25/2019 Z68.31 - Body mass index (BM I) 31.0-31.9 adult Medical Established Patient with Laura Waller GREENHOUSE TECHNICIAN 04/25/2019 Anxiety disorder NOS Medical New Patient with Laura Waller GREENHOUSE TECHNICIAN 09/14/2018 Benign essential hypertension Medical Ne w Patient with Laura Waller GREENHOUSE TECHNICIAN 09/14/2018 Coronary artery disease Medical New Judith ent with Laura Ramirez GREENHOUSE TECHNICIAN 09/14/2018 Diabetes Risk Test Score was five score 09/14/2018 Medical New Patient with Laura Waller GREENHOUSE TECHNICIAN 09/14/2018 Hyperlipidemia Medical New Patient with Laura Waller GREENHOUSE TECHNICIAN 09/14/2018 Obesity due to excess calories Medical N ew Patient with Laura Waller GREENHOUSE TECHNICIAN 09/14/2018 Routine history and physical Medical New Patient with Laura Ramirez GREENHOUSE TECHNICIAN 09/14/2018 Z68.32 - Body mass index (BM I) 32.0-32.9, adult Medical New Patient with Laura Ramirez GREENHOUSE TECHNICIAN 09/14/2018 Findings Encounter Date Adjustment disorder with anxiety Tele behavioral Health with Jojarred Velazquez [facility] 04/30/2020 Mild recurrent major depression Tele ehavioral Health with Jojarred Velazquez [facility] 04/30/2020 Body mass index Telemedicine Establi sted Patient with Thalia Block GREENHOUSE TECHNICIAN 04/30/2020 Exposure to a viral disease Telemedicine Establisted Patient with Thalia Umair GREENHOUSE TECHNICIAN 04/30/2020 Obesity due to excess calories Telemedic ine Establisted Patient with Thalia Umair GREENHOUSE TECHNICIAN 04/30/2020 Body mass index Telemedicine with Suzi Mijares e [facility] 11/16/2019 Depression Telemedicine with Suzi dalton GREENHOUSE TECHNICIAN 11/16/2019 Hypertension Telemedicine with Suzi Mijares e GREENHOUSE TECHNICIAN 11/16/2019 Obesity due to excess calories Telemedicine with Suzi Martinez [facility] 11/16/2019 Upper respiratory infection Telemedicine with Mary Martinez [facility] 09/24/2019 Recurrent major depression i n full remission Established Patient with Princess BENSON 04/25/2019 Arthralgia of right hand Medical Establi shed Patient with Laura Sean GREENHOUSE TECHNICIAN 04/25/2019 Depression Medical Established Patient with Laura Sean GREENHOUSE TECHNICIAN 04/25/2019 Fagerstrom Score was 0 Medical Establish ed Patient with Laura Sean GREENHOUSE TECHNICIAN 04/25/2019 Obesity due to excess calories Medical E stablished Patient with Laura Waller GREENHOUSE TECHNICIAN 04/25/2019 Onychomycosis of the right 1 st toenail Medical Established Patient with Laura Waller GREENHOUSE TECHNICIAN 04/25/2019 PHQ-9: total score was three 04/25/2019 Medical Established Patient with Laura Waller GREENHOUSE TECHNICIAN 04/25/2019 Z68.31 - Body mass index (BM I) 31.0-31.9 adult Medical Established Patient with Laura Ramirez GREENHOUSE TECHNICIAN 04/25/2019 Anxiety disorder NOS Medical New Patient with Laura Ramirez GREENHOUSE TECHNICIAN 09/14/2018 Benign essential hypertension Medical Ne w Patient with Laura Nye GREENHOUSE TECHNICIAN 09/14/2018 Coronary artery disease Medical New Judith ent with Laura Ramirez GREENHOUSE TECHNICIAN 09/14/2018 Diabetes Risk Test Score was five score 09/14/2018 Medical New Patient with Laura Ramirez GREENHOUSE TECHNICIAN 09/14/2018 Hyperlipidemia Medical New Patient with Laura Ramirez GREENHOUSE TECHNICIAN 09/14/2018 Obesity due to excess calories Medical N ew Patient with Laura Ramirez GREENHOUSE TECHNICIAN 09/14/2018 Routine history and physical Medical New Patient with Laura Ramirez GREENHOUSE TECHNICIAN 09/14/2018 Z68.32 - Body mass index (BM I) 32.0-32.9, adult Medical New Patient with Laura Ramirez GREENHOUSE TECHNICIAN 09/14/2018 Findings Encounter Date Body mass index Telemedicine Establi sted Patient with Suzi Martinez GREENHOUSE TECHNICIAN 06/27/2020 Hypertension Telemedicine Establi sted Patient with Suzi Martinez GREENHOUSE TECHNICIAN 06/27/2020 Adjustment disorder with anxiety Tele behavioral Health with Jo Velazquez [facility] 04/30/2020 Mild recurrent major depression Teleb ehavioral Health with Jo Velazquez [facility] 04/30/2020 Body mass index Telemedicine Establi sted Patient with Thaila Block GREENHOUSE TECHNICIAN 04/30/2020 Exposure to a viral disease Telemedicine Establisted Patient with Thalia Block GREENHOUSE TECHNICIAN 04/30/2020 Obesity due to excess calories Telemedic ine Establisted Patient with Thalia Block GREENHOUSE TECHNICIAN 04/30/2020 Body mass index Telemedicine with Suzi Mijares e GREENHOUSE TECHNICIAN 11/16/2019 Depression Telemedicine with Suzi Mijares e GREENHOUSE TECHNICIAN 11/16/2019 Hypertension Telemedicine with Suzi Mijares e GREENHOUSE TECHNICIAN 11/16/2019 Obesity due to excess calories Telemedicine with Suzi Martinez GREENHOUSE TECHNICIAN 11/16/2019 Upper respiratory infection Telemedicine with Mary Martinez GREENHOUSE TECHNICIAN 09/24/2019 Recurrent major depression i n full remission BH Established Patient with Princess Blackmon [employer] 04/25/2019 Arthralgia of right hand Medical Establi shed Patient with Laura Ramirez GREENHOUSE TECHNICIAN 04/25/2019 Depression Medical Established Patient with Laura Ramirez GREENHOUSE TECHNICIAN 04/25/2019 Fagerstrom Score was 0 Medical Establish ed Patient with Laura Ramirez CNP 04/25/2019 Obesity due to excess calories Medical E stablished Patient with Laura Ramirez CNP 04/25/2019 Onychomycosis of the right 1 st toenail Medical Established Patient with Laura Ramirez CNP 04/25/2019 PHQ-9: total score was three 04/25/2019 Medical Established Patient with Laura Ramirez GREENHOUSE TECHNICIAN 04/25/2019 Z68.31 - Body mass index (BM I) 31.0-31.9 adult Medical Established Patient with Laura Ramirez CNP 04/25/2019 Anxiety disorder NOS Medical New Patient with Laura Ramirez CNP 09/14/2018 Benign essential hypertension Medical Ne w Patient with Laura Ramirez GREENHOUSE TECHNICIAN 09/14/2018 Coronary artery disease Medical New Judith ent with Laura Ramirez CNP 09/14/2018 Diabetes Risk Test Score was five score 09/14/2018 Medical New Patient with Laura Ramirez CNP 09/14/2018 Hyperlipidemia Medical New Patient with Laura Ramirez CNP 09/14/2018 Obesity due to excess calories Medical N ew Patient with Laura Ramirez CNP 09/14/2018 Routine history and physical Medical New Patient with Laura Ramirez CNP 09/14/2018 Z68.32 - Body mass index (BM I) 32.0-32.9, adult Medical New Patient with Laura Ramirez CNP 09/14/2018 Findings Encounter Date Mild recurrent major depress ion with anxiety Established Patient with Laverne Garrett [facility] 07/03/2020 Diabetes Risk Test Score was five score 07/03/2020 Medical Established Patient with Suzi Martinez [facility] 07/03/2020 Hypertension Medical Established Patient with Suzi Martinez [facility] 07/03/2020 Obesity due to excess calories Medical E stablished Patient with Suzi aMrtinez [facility] 07/03/2020 Z68.36 - Body mass index [BM I] 36.0-36.9, adult Medical Established Patient with Suzi Martinez [facility] 07/03/2020 Body mass index Telemedicine Estab sted Patient with Suzi Michelle [facility] 06/27/2020 [facility] 06/27/2020 Adjustment disorder with anxiety Tele behavioral Health with Jo HICKS 04/30/2020 Mild recurrent major depression Teleb ehavioral Health with Jo Marcus [facility] 04/30/2020 Body mass index Telemedicine Establi sted Patient with Thalia Block GREENHOUSE TECHNICIAN 04/30/2020 Exposure to a viral disease Telemedicine Establisted Patient with Thalia Umair GREENHOUSE TECHNICIAN 04/30/2020 Obesity due to excess calories Telemedic ine Establisted Patient with Thalia Umair GREENHOUSE TECHNICIAN 04/30/2020 Body mass index Telemedicine with Suzi Maryana e GREENHOUSE TECHNICIAN 11/16/2019 Depression Telemedicine with Suzi Mijares e GREENHOUSE TECHNICIAN 11/16/2019 Hypertension Telemedicine with Suzimagdalena Mijares e GREENHOUSE TECHNICIAN 11/16/2019 Obesity due to excess calories Telemedicine with Suzi Martinez GREENHOUSE TECHNICIAN 11/16/2019 Upper respiratory infection Telemedicine with Mary Martinez GREENHOUSE TECHNICIAN 09/24/2019 Recurrent major depression i n full remission BH Established Patient with Princess PUENTE-S 04/25/2019 Arthralgia of right hand Medical Establi shed Patient with Laura Waller GREENHOUSE TECHNICIAN 04/25/2019 Depression Medical Established Patient with Larua Waller GREENHOUSE TECHNICIAN 04/25/2019 Fagerstrom Score was 0 Medical Establish ed Patient with Laura Waller GREENHOUSE TECHNICIAN 04/25/2019 Obesity due to excess calories Medical E stablished Patient with Laura Waller GREENHOUSE TECHNICIAN 04/25/2019 Onychomycosis of the right 1 st toenail Medical Established Patient with Laura Waller GREENHOUSE TECHNICIAN 04/25/2019 PHQ-9: total score was three 04/25/2019 Medical Established Patient with Laura Waller GREENHOUSE TECHNICIAN 04/25/2019 Z68.31 - Body mass index (BM I) 31.0-31.9 adult Medical Established Patient with Laura Sean GREENHOUSE TECHNICIAN 04/25/2019 Anxiety disorder NOS Medical New Patient with Laura Waller GREENHOUSE TECHNICIAN 09/14/2018 Benign essential hypertension Medical Ne w Patient with Laura Sean GREENHOUSE TECHNICIAN 09/14/2018 Coronary artery disease Medical New Judith ent with Laura Waller GREENHOUSE TECHNICIAN 09/14/2018 Diabetes Risk Test Score was five score 09/14/2018 Medical New Patient with Laura Waller GREENHOUSE TECHNICIAN 09/14/2018 Hyperlipidemia Medical New Patient with Laura Sean GREENHOUSE TECHNICIAN 09/14/2018 Obesity due to excess calories Medical N ew Patient with Laura Waller GREENHOUSE TECHNICIAN 09/14/2018 Routine history and physical Medical New Patient with Laura Sean GREENHOUSE TECHNICIAN 09/14/2018 Z68.32 - Body mass index (BM I) 32.0-32.9, adult Medical New Patient with Laura Ramirez CNP 09/14/2018 Findings Encounter Date Recurrent major depression i n full remission BH Established Patient with Princess PUENTE-Kina 04/25/2019 Depression Medical Established Patient with Laura Ramirez CNP 04/25/2019 Fagerstrom Score was 0 Medical Establish ed Patient with Laura Ramirez GREENHOUSE TECHNICIAN 04/25/2019 Obesity due to excess calories Medical E stablished Patient with Laura Ramirez GREENHOUSE TECHNICIAN 04/25/2019 PHQ-9: total score was three 04/25/2019 Medical Established Patient with Laura Ramirez GREENHOUSE TECHNICIAN 04/25/2019 Z68.31 - Body mass index (BM I) 31.0-31.9 adult Medical Established Patient with Laura Ramirez CNP 04/25/2019 Anxiety disorder NOS Medical New Patient with Laura Ramirez GREENHOUSE TECHNICIAN 09/14/2018 Benign essential hypertension Medical Ne w Patient with Laura Sean GREENHOUSE TECHNICIAN 09/14/2018 Coronary artery disease Medical New [place] ent with Laura Ramirez CNP 09/14/2018 Diabetes Risk Test Score was five score 09/14/2018 Medical New Patient with Laura Sean GREENHOUSE TECHNICIAN 09/14/2018 Hyperlipidemia Medical New Patient with Laura Sean GREENHOUSE TECHNICIAN 09/14/2018 Obesity due to excess calories Medical N ew Patient with Alura Sean GREENHOUSE TECHNICIAN 09/14/2018 Routine history and physical Medical New Patient with Laura Ramirez CNP 09/14/2018 Z68.32 - Body mass index (BM I) 32.0-32.9, adult Medical New Patient with Laura Ramirez GREENHOUSE TECHNICIAN 09/14/2018 Instructions Instructions not supported for [...] section and content) DATE CREATED AUTHOR 12/20/2018 [facility] DATE CREATED AUTHOR AUTHOR'S ORGANIZ ATION 04/28/2019 [facility] DATE CREATED AUTHOR AUTHOR'S ORGANIZ ATION [facility]/20/2022 [facility] DATE CREATED AUTHOR AUTHOR'S ORGANIZ ATION 05/01/2022 [facility] DATE CREATED AUTHOR AUTHOR'S ORGANIZ ATION 02/07/2023 [facility] DATE CREATED AUTHOR AUTHOR'S ORGANIZ ATION 10/15/2023 [facility] dical Specialists EPIC Evaluations & Outcomes [...] BE BASED ON THE PRIMARY CLINICAL RECORDS. [facility]. provides no warranty or guarantee of the accuracy or completeness of information in this document.
== END 2023-10-24 12:37 | disposition home or self-care (01) ==
LOC: MRI 12:36
PROVIDERS: PCP Internal Medicine; Visit Provider Internal Medicine
DX: M25.512 Pain in left shoulder (principal); S46.812A Strain of other muscles, fascia and tendons at shoulder and upper arm level, left arm, initial encounter
CPT/HCPCS: 73221

== ENCOUNTER 2025-03-19 10:14 | Outpatient (OUT) | payer OTHER, SELFPAY ==
--- OUTSIDE RECORDS SUMMARY | 2022-10-14 08:15 | XMS_ITS | Continuity of Care Document ---
Author Organization [facility] Address [address] [place] [address] Phone Care Team Providers Care Contact Center Professional Name Role Phone Amariiain YAOSwathi Unavailable Unavailable Allergies, Adverse Reactions, Alerts Substance Reaction Status Criticality No Known Allergies Active No Inform ation Medications Medication Instructions Dosage Effective Dates (start - stop) Status Comments ArmonAir Digihaler 113 mcg/actuation aerosol powder breath act, sensor inhale 1 puff by inhalation route 2 times every day - Active montelukast 10 mg tablet take 1 tablet by oral route every day in the evening 10 MG - Active omeprazole 20 mg capsule,delayed release take 1 capsule by oral route every day 30 minutes to 1 hour before a meal 20 MG - Active citalopram 40 mg tablet take 1 tablet by oral route every day 40 MG - Active atorvastatin 80 mg tablet take 1 tablet by oral route every day 80 MG - Active Zetia 10 mg tablet take 1 tablet by ora l route every day 10 MG - Active lisinopril 5 mg tablet take 1 tablet by oral route every day 5 MG - Active atenolol 50 mg tablet take 1 tablet by o ral route every day 50 MG - Active Vazalore 81 mg capsule take 1 capsule by oral route every day 81 MG - Active Procedures Procedure Date Extract; Erupted Th/exposted Rt Extract; Erupted Th/exposted Rt 023 Oral Hygiene Instruction Limited Oral Eval Intraoral-complete Series (bw) Oral Hygiene Instruction High Risk Comp Oral Eval New/estab Patient 2022 Advance Directives Directive Yes / No Effective Date File Name No Information Encounters Encounter Description Practice Location Reason(s) For Visit Diagnoses Date Provider Providers Copied on Encounter [facility], [address] [place] [address], [id number], tel:[phone] Dental Clinic Extraction (chief complaint) No Information Yaneli Echevarria. . tel:[phone] [facility], [address] [place] [address], [id number], tel:[phone] Dental Clinic DLE (chief complaint) Encounter for screening for dental disorders Yaneli WeathermobKina Swathi. . tel:[phone] [facility], [address] [place] [address], [id number], tel:[phone] Dental Clinic DN (chief complaint) Encounter for screening for dental disorders Yaneli WeathermobKina Swathi. . tel:[phone] Family History Family Member Type Diagnosis Age At Onset No Information Payers Payer name Insurance type Covered democrat ID Authorjamison tineo(s) D [facility] [employer] [id number] D Medicaid Wrap - [employer] [id number] Social History Type Description Quantity Date Captured Comments Alcohol Use Details Unknown Caffeine Use Details Unknown Tobacco Use Status Moderate cigarette s moker (10-19 cigs/day) Smoking Status Heavy tobacco smoker Sex Female Sexual Orientation Straight or heterosexual Gender Identity Female Vital Signs Date / Time: Height Weight BMI Pulse Rate Blood Pressure Temperature Respiratory Rate Body Surface Area Head Circumference Head Circ. Percentile Wt./Dick. Percentile BMI percentile Pulse Ox Inhaled Ox 1:24 PM 67 /min 108/73 mm[Hg] 98.30 F Chief Complaint And Reason For Visit From encounter dated '10/14/2022 13:15'. Extraction (chief complaint) Reason For Referral Reason For Referral No Information Plan Of Treatment Date Type Action Status Goal Depression screening. Due on due Goal FOBT. Due on due Goal Mammogram. Due on due Goal Colonoscopy. Due on due Goal PRAPARE ASSESSMENT. Due on due Goal Zoster vaccine (1st). Due on due Goal Tdap. Due on due Goal Influenza vaccine. Due on due Goal Tdap Vaccine. Due on 2022 due Goal Lipid panel. Due on due Goal Depression screening. Due on due Goal PRAPARE ASSESSMENT. Due on due Goal Tdap Vaccine. Due on 2022 due Goal FOBT. Due on due Goal Zoster vaccine (1st). Due on due Goal Mammogram. Due on due Goal Colonoscopy. Due on due Goal Influenza vaccine. Due on due Goal Lipid panel. Due on due Goal Tdap. Due on due Goal Influenza vaccine. Due on due Goal Colonoscopy. Due on due Goal Mammogram. Due on due Goal Zoster vaccine (1st). Due on due Goal FOBT. Due on due Goal Tdap Vaccine. Due on 2022 due Goal PRAPARE ASSESSMENT. Due on M due Goal Depression screening. Due on due Goal Tdap. Due on due Goal Lipid panel. Due on 023 due History Of Present Illness Encounter Date Complaint History Of Prese nt Illness Extraction DLE DLE DN Functional Status Date Functional Assessmen t No Information Instructions Date Instruction Additional Infor mation No Information Assessments Type Assessment Date No Information Patient Care Teams Name Effective Dates (start - stop) Status Members No Information
--- OUTSIDE RECORDS SUMMARY | 2024-04-20 03:00 | XMS_ITS ---
Author Organization [facility] Address [address] [place], [place] [address] Care Team Providers Care Warehouse Specialist Name Role Phone Lindsay Mckeon Primary Care Provider [phone] Batsheva Cagle Unavailable [phone] REASON FOR VISIT HALEY tooth pain face is swollen Encounters Encounter Location Date Provider Diagnosis [facility] [place] [address] 04/20/2024 Batsheva Cagle Plan Of Treatment No Information Progress Notes * Raeann ECKERT SDOB: 1965 (59 yo F)Acc No.[id number]:04/20/2024 Patient:?Raeann Eckert :?Batsheva Cagle DMDDOB:1965???Age:58 Y ???Sex:FemaleDate:4Phone:[phone]:[address], [address], [place], [place]Nrw:Lindsay MckeonPatient'love Default Facility:[facility] Main Structured Data: : No; Seasonal : No; Migrant : No Subjective: * Chief Complaints: * L U tooth pain face is swollen * Electronic signature of Batsheva Cagle DMD on 03/19/2025 at 10:18 AM ESTSign off status: Pending * Provider: Oleg Cagle DMD Date: 06/21/2023 Generated for Printing/Faxing/eTransmitting on:?03/19/2025 10:18 AM EST
--- OUTSIDE RECORDS SUMMARY | 2024-07-11 05:00 | XMS_ITS ---
Author Organization [facility] Address [address] [place], [place] [address] Care Team Providers Care Line Crew Supervisor Name Role Phone Lindsay Mckeon Primary Care Provider REASON FOR VISIT Fasting blood work Encounters Encounter Location Date Provider Diagnosis [facility] [place] [address] 07/11/2024 Lindsay Mckeon Plan Of Treatment No Information Progress Notes * Raeann ECKERT SDOB: 1965 (59 yo F)Acc No.[id number]:07/11/2024 Progress Notes Patient: Rl Korina Raeann Kina :MarjorieLindsay Mckeon DNPDOB:1965???Age:58 Y ???Sex:FemaleDate:07/11/2024Phone:[phone]:[address], [address], [facility]Iwkbvpf's Default Facility:[facility] MainStructured Data: : No; Seasonal : No; Migrant : No Subjective: * Chief Complaints: * F asting blood work * Electronic signature of Lindsay Mckeon DNP on 03/19/2025 at 10:19 AM ESTSign off status: Pending * Provider: Trev Mckeon DNP Date: 0 07/11/2024 Generated for Printing/Faxing/eTransmitting on:?03/19/2025 10:19 AM EST
--- OUTSIDE RECORDS SUMMARY | 2024-07-25 05:30 | XMS_ITS ---
Author Organization [facility] Address [address] [place], [place] [address] Care Team Providers Care Sales Program Manager Name Role Phone Lindsay Mckeon Primary Care Provider REASON FOR VISIT 3 month lab review Encounters Encounter Location Date Provider Diagnosis [facility] [place] [address] 07/25/2024 Lindsay Mckeon Plan Of Treatment No Information Progress Notes * Raeann ECKERT SDOB: 1965 (59 yo F)Acc No.[id number]:07/25/2024 Progress Notes Patient: Rl Korina Raeann Kina :?Lindsay Mckeon DNPDOB:1965???Age:58 Y ???Sex:FemaleDate:07/25/2024Phone:[phone]:[address], [address], [place], [place]Uqdtuap's Default Facility:[facility] MainStructured Data: : No; Seasonal : No; Migrant : No Subjective: * Chief Complaints: * 3 month lab review * Electronic signature of Lindsay Mckeon DNP on 03/19/2025 at 10:18 AM ESTSign off status: Pending * Provider: Trev Mckeon DNP Date: 0 07/25/2024 Generated for Printing/Faxing/eTransmitting on:?03/19/2025 10:18 AM EST
--- OUTSIDE RECORDS SUMMARY | 2025-03-19 10:18 | XMS_ITS | Encounter Summary ---
Author Organization [facility] Address [address] [place] [address] Care Team Providers Care Grocery Cashier Name Role Phone Shaikh KAILEE Arshad Primary Care Provider Shaikh KAILEE Arshad Unavailable [phone] Encounter Details DateTypeDepartmentCare Team (Latest Contact Info)Zivbfddtlgs25/16/2024Clinisync Result Encounter [facility] External Department Unsolicited Shaikh Arshad MD [address] [place] [address] Social History Tobacco UseTypesPacks/DayYears UsedDateSmoking Tobacco: Every DayCigarettes Smokeless Tobacco: NeverAlcohol UseStandard Drinks/WeekCommentsNever0 (1 standard drink = 0.6 oz pure alcohol)PHQ-2AnswerDate RecordedPatient Health Questionnaire-2 [id number] and Gender InformationValueDate RecordedSex Assigned at BirthNot on fileLegal SexFemale 03/28/2023 2:19 PM ESTGender IdentityNot on fileSexual OrientationNot on file documented as of this encounter Functional Status * Over the past 2 weeks, how often have you been bothered by any of the following problems?QuestionAnswerDate of AssessmentAuthorLittle interest or pleasure in doing thingsNot at all09/14/2023 3:43 PM Sabas Byrd MA Feeling down, depressed, or hopelessNot at all09/14/2023 3:43 PM Sabas Byrd MAPatient Health Questionnaire-2 Sfuza672 3:43 PM Sabas Byrd MA documented as of this encounter Plan of Treatment Not on file documented as of this encounter Procedures Procedure NamePriorityDate/TimeAssociated DiagnosisCommentsCT CHEST WO CON 06/24/2023 8:26 AM EST documented in this encounter Results * CT CHEST WO CON (06/24/2023 8:26 AM EST)Anatomical RegionLateralityModality OtherSpecimen (Source)Anatomical Location / LateralityCollection Method / VolumeCollection TimeReceived Time06/24/2023 8:26 AM EST Narrative 06/24/2023 8:29 AM EST [facility] ?[address] ? [place] [address] ? CT Scan Report ? Signed ? Patient: FABRIZIO ECKERT S ?MR#: [id number] ?? : 1965 ?Acct:[id number] ?? Age/Sex: 57 / F ?ADM Date: 06/24/23 ?? Loc: CT ? Attending Dr: Shaikh Pavithra Giron ? Ordering Physician: Shaikh Bere Arshad ?? Date of Service: 06/24/23 ?? Procedure(s): CT chest wo con ?? Accession Number(s): [id number] ? cc: Shaikh Bree Arshad ? [facility] ? [address] [place] [address] ? [place] [address] ? Patient Name: ?? FABRIZIO ECKERT ? MRN: [facility]:[id number] ? date: 1965 ?Sex: F ?? Assigned Patient Location: CT ?? Current Patient Location: CT ?? Accession/Order Number: [id number] ?? Exam Date: 06/24/2023 ??08:05 ?Report Date: 06/24/2023 ??08:26 ? At the request of: ?PAVITHRA ? Procedure: ??CT chest wo con ? EXAMINATION: CT chest wo con ? HISTORY: Abnormal Chest Xray With Multiple Nodules R91.8 , lung nodule, cough, ? shortness of breath ? COMPARISON: No relevant comparison available. ? TECHNIQUE: Multi-planar CT images were obtained without and/or with IV ?? contrast ?? as indicated by examination type. Axial, Coronal, and Sagittal images. Dose ?? reduction techniques were achieved by using automated exposure control and/or ?? adjustment of mA and/or kV according to patient size and/or use of iterative ?? reconstruction technique. ? FINDINGS: ?? LUNGS: Multiple granulomas scattered bilaterally. No suspicious nodules or ?? acute infiltrates. No significant chronic interstitial changes. ?? PLEURA: No mass, effusion, or pneumothorax. ?? VASCULATURE: No abnormality. ?? JED: No mass or adenopathy. ?? MEDIASTINUM: No mass or adenopathy. ?? CARDIAC: No enlargement, pericardial thickening, or significant calcification. ?? AORTA: No aneurysm or dissection. ?? CHEST WALL: No mass or axillary adenopathy. ?? BONES: No bone lesion or fracture. ?? LIMITED ABDOMEN: No suspicious findings Limited images of the upper abdomen. ?? OTHER: Negative. ? CT/CT chest wo con ?? IMPRESSION: ? 1. Multiple benign-appearing granulomas scattered within the lungs. No ?? suspicious nodules or infiltrates. ? Electronically authenticated by: ROBI ??GABRIELA ?? Date: 06/24/2023 ??08:26 ? Dictated By: ?Robi Rodriguez M.D. ? Signed By: ?06/24/23 0829 ? DD/ 0826 ? TD/TT: ? Pulverizer Tender: Procedure Note Radiology, Radiologist, MD - 06/24/2023 [place] [address] CT Scan Report Signed Patient: [facility]AB[facility]IO [facility]CKERT [facility]#: [id number] : 1965Acct:[id number] Age/Sex: 57 / FADM Date: 06/24/23 Loc: CT Attending Dr: Shaikh Pavithra Giron Ordering Physician: Shaikh Bree Arshad Date of Service: 06/24/23 Procedure(s): CT chest wo con Accession Number(s): [id number] cc: Shaikh Bree Arshad The [address] [address] Patient Name: FABRIZIO ECKERT MRN: [id number]:[id number] date: 1965 Sex: F Assigned Patient Location: CT Current Patient Location: CT Accession/Order Number: [id number] Exam Date: 06/24/2023 08:05 Report Date: 06/24/2023 08:26 At the request of: SHAIKH PAVITHRA Procedure: CT chest wo con EXAMINATION: CT chest wo con HISTORY: Abnormal Chest Xray With Multiple Nodules R91.8 , lung nodule,cough, shortness of breath COMPARISON: No relevant comparison available. TECHNIQUE: Multi-planar CT images were obtained without and/or with IV contrast as indicated by examination type. Axial, Coronal, and Sagittal images.Dose reduction techniques were achieved by using automated exposure controland/or adjustment of mA and/or kV according to patient size and/or use ofiterative reconstruction technique. FINDINGS: LUNGS: Multiple granulomas scattered bilaterally. No suspicious nodules or acute infiltrates. No significant chronic interstitial changes. PLEURA: No mass, effusion, or pneumothorax. VASCULATURE: No abnormality. JED: No mass or adenopathy. MEDIASTINUM: No mass or adenopathy. CARDIAC: No enlargement, pericardial thickening, or significantcalcification. AORTA: No aneurysm or dissection. CHEST WALL: No mass or axillary adenopathy. BONES: No bone lesion or fracture. LIMITED ABDOMEN: No suspicious findings Limited images of the upperabdomen. OTHER: Negative. CT/CT chest wo con IMPRESSION: 1. Multiple benign-appearing granulomas scattered within the lungs. No suspicious nodules or infiltrates. Electronically authenticated by: ROBI RODRIGUEZ Date: 06/24/2023 08:26 Dictated By: Robi Rodriguez M.D. Signed By:06/24/23828 DD/ 5 TD/TT: Pulverizer Tender: Authorizing ProviderResult TypeResult StatusShaikh Pavithra MDCLINISYNC IMAGING Final Result documented in this encounter Visit Diagnoses Not on filedocumented in this encounter Care Teams Team MemberRelationshipSpecialtyStart DateEnd Date Shaikh Arshad MD PCP - GeneralInternal Medicine06/07/23 Shaikh Arshad MD [address] [place] [address] [facility]11/07/23documented as of this encounter
--- OUTSIDE RECORDS SUMMARY | 2025-03-19 10:18 | XMS_ITS | Encounter Summary ---
Author Organization [facility] Address [address] [place] [address] Care Team Providers Care Brand Sales Manager Name Role Phone Shaikh KAILEE Arshad Primary Care Provider [phone] Shaikh KAILEE Arshad Unavailable [phone] Encounter Details DateTypeDepartmentCare Team (Latest Contact Info)Qjlcqurbruv10/12/2024linisync Result Encounter [facility] External Department Unsolicited Shaikh Arshad MD [address] [place] [address] Social History Tobacco UseTypesPacks/DayYears UsedDateSmoking Tobacco: FormerCigarettesPassive Smoke Exposure: PastSmokeless Tobacco: NeverAlcohol UseStandard Drinks/Week CommentsNever0 (1 standard drink = 0.6 oz pure alcohol)PHQ-2AnswerDate Recorded Patient Health Questionnaire-2 [id number] and Gender InformationValueDate RecordedSex Assigned at BirthNot on fileLegal Sex Qfdnki5903/28/2023 2:19 PM ESTGender IdentityNot on fileSexual OrientationNot on filedocumented as of this encounter Plan of Treatment Not on file documented as of this encounter Procedures Procedure NamePriorityDate/TimeAssociated DiagnosisCommentsXR SHOULDER 2+ VIEWS LEFT09/18/2023 5:16 AM EDT documented in this encounter Results * XR shoulder 2+ views left (09/18/2023 5:16 AM EDT)Anatomical RegionLaterality ModalityUpper Extremities, ShoulderLeftRadiographic ImagingSpecimen (Source) Anatomical Location / LateralityCollection Method / VolumeCollection Time Received Time09/18/2023 5:16 AM EDT Narrative 09/18/2023 5:18 AM EDT [facility] ?[address] ? [place] [address] ?XRay Report ? Signed ? Patient: BABAR,FABRIZIO S ?MR#: [id number] ?? : 1965 ?Acct:[id number] ?? Age/Sex: 57 / F ?ADM Date: 09/16/23 ?? Loc: RAD ? Attending Dr: Shaikh Pavithra Giron ? Ordering Physician: Shaikh Bree Arshad ?? Date of Service: 09/16/23 ?? Procedure(s): XR shoulder LT min 2V ?? Accession Number(s): [id number] ? cc: Shaikh Bree Arshad ? [facility] ? [address] [place] [address] ? [place] [address] ? Patient Name: ?? FABRIZIO ECKERT ? MRN: [facility]:[id number] ? date: 1965 ?Sex: F ?? Assigned Patient Location: RAD ?? Current Patient Location: ? Accession/Order Number: [id number] ?? Exam Date: 09/16/2023 ??09:15 ?Report Date: 09/18/2023 ??05:16 ? At the request of: ?PAVITHRA ? Procedure: ??XR shoulder LT min 2V ? PROCEDURE: XR shoulder LT min 2V ? HISTORY: Acute pain of left shoulder M25.512 ; no known injury ? COMPARISON: None. ? FINDINGS: ?? BONES:No fracture, acute abnormality, or significant arthropathy. ?? SOFT TISSUES:No visible soft tissue swelling. ?? EFFUSION:None visible. ?? OTHER: Negative. ? XR/XR shoulder LT min 2V ?? IMPRESSION: ? 1. No acute bone abnormality or significant degenerative changes of the left ?? shoulder. ? Electronically authenticated by: ROBI ??GABRIELA ?? Date: 09/18/2023 ??05:16 ? Dictated By: ?Robi Rodriguez M.D. ? Signed By: ?09/18/23 0518 ? DD/ 0516 ? TD/TT: ? Slot Ambassador: Procedure Note Radiology, Radiologist, MD - 09/19/[address] [address] XRay Report Signed Patient: FABRIZIO ECKERT SMR#: [id number] : 1965Acct:[id number] Age/Sex: 57 / FADM Date: 09/16/23 Loc: RAD Attending Dr: Shaikh Pavithra Giron Ordering Physician: Shaikh Bree Arshad Date of Service: 09/16/23 Procedure(s): XR shoulder LT min 2V Accession Number(s): [id number] cc: Shaikh Bree Arshad [place] [id number] Patient Name: FABRIZIO ECKERT MRN: [id number]:[id number] date: 1965 Sex: F Assigned Patient [facility]: [facility] Current Patient Location: Accession/Order Number: [id number] Exam Date: 09/16/2023 09:15 Report Date: 09/18/2023 05:16 At the request of: SHAIKH PAVITHRA Procedure: XR shoulder LT min 2V PROCEDURE: XR shoulder LT min 2V HISTORY: Acute pain of left shoulder M25.512 ; no known injury COMPARISON: None. FINDINGS: BONES:No fracture, acute abnormality, or significant arthropathy. SOFT TISSUES:No visible soft tissue swelling. EFFUSION:None visible. OTHER: Negative. XR/XR shoulder LT min 2V IMPRESSION: 1. No acute bone abnormality or significant degenerative changes of theleft shoulder. Electronically authenticated by: ROBI RODRIGUEZ Date: 09/18/2023 05:16 Dictated By: Robi Rodriguez M.D. Signed By:09/18/23517 DD/ 5 TD/TT: Slot Ambassador: Authorizing ProviderResult TypeResult StatusShnabila SANDRA XR PROCEDURES Final Result documented in this encounter Visit Diagnoses Not on filedocumented in this encounter Care Teams Team MemberRelationshipSpecialtyStart DateEnd Date Shaikh Arshad MD [facility] - [facility]/23 Shaikh Arshad MD [address] [place] [address] PCP - [facility]11/07/23documented as of this encounter
--- OUTSIDE RECORDS SUMMARY | 2025-03-19 10:18 | XMS_ITS | Encounter Summary ---
Author Organization [facility] Address [address] [place] [address] Care Team Providers Care Plate Painter Name Role Phone Shaikh KAILEE Arshad Primary Care Provider [phone] Shaikh KAILEE Arshad Unavailable [phone] Encounter Details DateTypeDepartmentCare Team (Latest Contact Info)Llxgwqcetpi59/16/2024Clinisync Result Encounter [facility] External Department Unsolicited Shaikh Arshad MD [address] [place] [address] Social History Tobacco UseTypesPacks/DayYears UsedDateSmoking Tobacco: Every DayCigarettes Smokeless Tobacco: NeverAlcohol UseStandard Drinks/WeekCommentsNever0 (1 standard drink = 0.6 oz pure alcohol)PHQ-2AnswerDate RecordedPatient Health Questionnaire-2 Yywsy8544CommentsUnknownSex and Gender InformationValueDate RecordedSex Assigned at BirthNot [...] 3:43 PM Sabas Byrd MAPatient Health Questionnaire-2 Iilky959 3:43 PM Sabas Byrd MA documented as of this encounter Plan of Treatment Not on file documented as of this encounter Procedures Procedure NamePriorityDate/TimeAssociated DiagnosisCommentsCT CHEST WO CON 06/24/2023 8:26 AM EST documented in this encounter Results * CT CHEST WO CON (06/24/2023 8:26 AM EST)Anatomical RegionLateralityModality OtherSpecimen (Source)Anatomical Location / LateralityCollection Method / VolumeCollection TimeReceived Time06/24/2023 8:26 AM EST Narrative 11/09/2023 7:05 AM EDT [facility] ?[address] ? [place], [place] [address] ? CT Scan Report ? Signed with Addenda ? Patient: BABAR,FABRIZIO S ?MR#: [id number] ?? : 1965 ?Acct:[id number] ?? Age/Sex: 57 / F ?ADM Date: 06/24/23 ?? Loc: CT ? Attending Dr: Shaikh Pavithra Giron ? Ordering Physician: Shaikh Bree Arshad ?? Date of Service: 06/24/23 ?? Procedure(s): CT chest wo con ?? Accession Number(s): [id number] ? cc: Shaikh Bree Arshad ?ADDENDUM ? [facility] ? [address] [facility] ? [place] [address] ? Patient Name: ?? FABRIZIO ECKERT ? MRN: [facility]:[id number] ? date: 1965 ?Sex: F ?? Assigned Patient Location: CT ?? Current Patient Location: RAD ?? Accession/Order Number: [id number] ?? Exam Date: 06/24/2023 ??08:05 ?Report Date: 09/19/2023 ??10:58 ? At the request of: ?FAWWAJenni ? Procedure: ??CT chest wo con ? Begin Addendum #1 ? Coronary Arteries: Calcifications are moderate. ? Original Report ?? EXAMINATION: CT chest wo con ? HISTORY: Abnormal Chest Xray With Multiple Nodules R91. 8 , lung nodule, ?? cough, ?? shortness of breath ? COMPARISON: No relevant [...] No enlargement, pericardial thickening, or significant calcification. ? AORTA: No aneurysm or dissection. ?? CHEST WALL: No mass or axillary adenopathy. ?? BONES: No bone lesion or fracture. ?? LIMITED ABDOMEN: No suspicious findings Limited images of the upper abdomen. ?? OTHER: Negative. ? Addendum Dictated By: ?Robi Rodriguez M.D. ? Addendum Signed By: <Electronically signed by Robi Rodriguez M.D.> ?11/09/23704 ?? Addendum Cosigned By: ? DD/DT: 05/ ? TD/TT: / ?ADDENDUM ?? CT/CT chest wo con ?? IMPRESSION: ? 1. Multiple benign-appearing granulomas scattered within the lungs. No ?? suspicious nodules or infiltrates. ? Electronically authenticated by: ROBI ??GABRIELA ?? Date: 09/19/2023 ??10:58 ? Addendum Dictated By: ?Robi Rodriguez M.D. ? Addendum Signed By: <Electronically signed by Robi Rodriguez M.D.> ?11/09/23 07 ?? Addendum Cosigned By: ? DD/ ? TD/TT: / ? [facility] ? [address] ? [place] [address] ? Patient Name: ?? FABRIZIO ECKERT ? MRN: [facility]:[id number] ? date: 1965 ?Sex: F ?? Assigned Patient Location: CT ?? Current Patient Location: CT ?? Accession/Order Number: [id number] ?? Exam Date: 06/24/2023 ??08:05 ?Report Date: [...] By: ?Robi Rodriguez M.D. ? Signed By: ?06/24/23828 ? DD/ 5 ? TD/TT: ? Paper Twister: Procedure Note Radiology, Radiologist, MD - 11/09/2023 [place] [address] CT Scan Report Signed with Lisa Patient: FABRIZIO ECKERT [facility]#: [id number] : 1965Acct:[id number] Age/Sex: 57 / FADM Date: 06/24/23 Loc: CT Attending Dr: Shaikh Pavithra Giron Ordering Physician: Shaikh Bree Arshad Date of Service: 06/24/23 Procedure(s): CT chest wo con Accession Number(s): [id number] cc: Shaikh Bree Arshad ADDENDUM [address] [address] Patient Name: FABRIZIO ECKERT MRN: [facility]:[id number] date: 1965 Sex: F Assigned Patient Location: CT Current Patient Location: [facility] Accession/Order Number: [id number] Exam Date: 06/24/2023 08:05 Report Date: 09/19/2023 10:58 At the request of: SHAIKH PAVITHRA Procedure: CT chest wo con Begin Addendum #1 Coronary Arteries: Calcifications are moderate. Original Report EXAMINATION: CT chest wo con HISTORY: Abnormal Chest Xray With Multiple Nodules R91. 8 , lung nodule, cough, shortness of breath COMPARISON: No relevant comparison [...] Limited images of the upperabdomen. OTHER: Negative. Addendum Dictated By: Robi Rodriguez M.D. Addendum Signed By: <Electronically signed by Robi Rodriguez M.D.> 11/09/23704 Addendum Cosigned By: DD/ TD/TT: / ADDENDUM CT/CT chest wo con IMPRESSION: 1. Multiple benign-appearing granulomas scattered within the lungs. No suspicious nodules or infiltrates. Electronically authenticated by: ROBI RODRIGUEZ Date: 09/19/2023 10:58 Addendum Dictated By: Robi Rodriguez M.D. Addendum Signed By: <Electronically signed by Robi Rodriguez M.D.> 11/09/23704 Addendum Cosigned By: DD/ TD/TT: / [place] [address] Patient Name: FABRIZIO ECKERT MRN: [facility]:[id number] date: 1965 Sex: F Assigned Patient Location: CT Current Patient Location: CT Accession/Order Number: [id number] Exam Date: 06/24/2023 08:05 Report Date: 06/24/2023 [...] Rodriguez M.D. Signed By:06/24/23828 DD/ 5 TD/TT: Paper Twister: Authorizing ProviderResult TypeResult StatusShaikh Pavithra [facility] CITYLINISYNC IMAGING Final Result documented in this encounter Visit Diagnoses Not on filedocumented in this encounter Care Teams Team MemberRelationshipSpecialtyStart DateEnd Date Shaikh Arshad MD PCP - GeneralBannernal Medicine06/07/23 Shaikh Arshad MD [address] [place] [address] PCP - [facility]11/07/23documented as of this encounter
--- OUTSIDE RECORDS SUMMARY | 2025-03-19 10:18 | XMS_ITS | Encounter Summary ---
Author Organization [facility] Address [address] [place] [address] Care Team Providers Care Cisco Network Engineer Name Role Phone Shaikh KAILEE Arshad Primary Care Provider [phone] Shaikh KAILEE Arshad Unavailable [phone] Encounter Details DateTypeDepartmentCare Team (Latest Contact Info)Ksxiflwwjyk89/22/2024Clinisync Result Encounter [facility] Unsolicited Shaikh Arshad MD [address] [place] [id number] Social History Tobacco UseTypesPacks/DayYears UsedDateSmoking Tobacco: Every DayCigarettes Passive Smoke Exposure: CurrentSmokeless Tobacco: NeverAlcohol UseStandard Drinks/WeekCommentsNever0 (1 standard drink = 0.6 oz pure alcohol)PHQ-2Answer Date RecordedPatient Health Questionnaire-2 [id number] UnknownSex and Gender InformationValueDate RecordedSex Assigned at BirthNot on fileLegal ZogFgqowk38/20/2023 2:19 PM ESTGender IdentityNot on fileSexual OrientationNot on filedocumented as of this encounter Functional Status * Over the past 2 weeks, how often have you been bothered by any of the following problems?QuestionAnswerDate of AssessmentAuthorLittle interest or pleasure in doing thingsNot at all09/14/2023 3:43 PM Sabas Byrd MA Feeling down, depressed, or hopelessNot at all09/14/2023 3:43 PM Sabas Byrd MAPatient Health Questionnaire-2 Ubsme917 3:43 PM Sabas Byrd MA documented as of this encounter Plan of Treatment Not on file documented as of this encounter Procedures Procedure NamePriorityDate/TimeAssociated DiagnosisCommentsMM TOMOSYNTHESIS SCREENING BI06/30/2023 7:45 AM EST documented in this encounter Results * MM TOMOSYNTHESIS SCREENING BI (06/30/2023 7:45 AM EST)Anatomical Region LateralityModalityOtherSpecimen (Source)Anatomical Location / Laterality Collection Method / VolumeCollection TimeReceived Time06/30/2023 7:45 AM EST Narrative 06/30/2023 7:46 AM EST [facility] ?[address] ? [place] [address] ? Mammography Report ? Signed ? Patient: FABRIZIO ECKERT S ?MR#: [id number] ?? : 1965 ?Acct:[id number] ?? Age/Sex: 57 / F ?ADM Date: 06/29/23 ?? Loc: MAMMO ? Attending Dr: Shaikh Pavithra Giron ? Ordering Physician: Shaikh Bree Arshad ?Results: ? Date of Service: 06/29/23 ?Follow Up: ? Procedure(s): MM tomosynthesis screening BI ?? Accession Number(s): [id number] ? cc: Shaikh Bree Arshad ? Patient Name: ? FABRIZIO ECKERT ? MR#: [id number] ? : 1965 ? Exam Date: 06/29/2023 ?? Ordering Doctor: Shaikh Ellen Arshad . ? RADIOLOGY REPORT ? PROCEDURE: ? MM TOMOSYNTHESIS SCREENING BI ? COMPARISON: ? None. ? INDICATIONS: ? Screening ? Calculator Name ? NCI Breast Cancer Risk Assessment Tool ?? 5 Year Breast Cancer Risk ? 1.30% ?? Lifetime Breast Cancer Risk ? 7.60% ?? Personal Breast Cancer ?No ?? Personal Ovarian Cancer ? No ?? Treatments ? None ?? Family Cancers ? None ? LOCATION: ? [facility] ? BREAST COMPOSITION: ? Scattered areas fibroglandular density. ? FINDINGS: ? DIAGNOSTIC CATEGORY 2--BENIGN FINDING: ? RIGHT BREAST: ??No significant suspicious finding. ??Scattered benign-appearing ?? calcifications are present. ??Scattered benign-appearing lymph nodes are ?? present. ? LEFT BREAST: ??No significant suspicious finding. ??Scattered benign-appearing ?? calcifications are present. ??Scattered benign-appearing lymph nodes are ?? present. ? RECOMMENDATIONS: ? ROUTINE MAMMOGRAM AND CLINICAL EVALUATION IN 12 MONTHS. ? PLEASE NOTE: ??A NORMAL MAMMOGRAM DOES NOT EXCLUDE THE POSSIBILITY OF BREAST ?? CANCER. ??A CLINICALLY SUSPICIOUS PALPABLE LUMP SHOULD BE BIOPSIED. ? Dictated by: Robi Rodriguez M.D. on 06/30/2023 at 07:42 ? Approved by: Robi Rodriguez M.D. on 06/30/2023 at 07:45 ? Dictated By: ?Robi Rodriguez M.D. ? Signed By: ?06/30/23 0746 ? DD/ 0745 ? TD/TT: ? Unit Trust Manager: Procedure Note Radiology, Radiologist, MD - 06/30/[address] [address] Mammography Report Signed Patient: FABRIZIO ECKERT [facility]#: [id number] : 1965Acct:[id number] Age/Sex: 57 / FADM Date: 06/29/23 Loc: MAMMO Attending Dr: Shaikh Pavithra Giron Ordering Physician: Shaikh Bree ArshadResults: Date of Service: 06/29/23Follow Up: Procedure(s): MM tomosynthesis screening BI Accession Number(s): [id number] cc: Shaikh Bree Arshad Patient Name: FABRIZIO ECKERT MR#: [id number] : 1965 Exam Date: 06/29/2023 Ordering Doctor: Shaikh Ellen Stallings RADIOLOGY REPORT PROCEDURE: MM TOMOSYNTHESIS SCREENING BI COMPARISON: None. INDICATIONS: Screening Calculator Name NCI Breast Cancer Risk Assessment Tool 5 Year Breast Cancer Risk 1.30% Lifetime Breast Cancer Risk 7.60% Personal Breast Cancer No Personal Ovarian Cancer No Treatments None Family Cancers None LOCATION: [facility] BREAST COMPOSITION: Scattered areas fibroglandular density. FINDINGS: DIAGNOSTIC CATEGORY 2--BENIGN FINDING: RIGHT BREAST: No significant suspicious finding. Scatteredbenign-appearing calcifications are present. Scattered benign-appearing lymph nodes are present. LEFT BREAST: No significant suspicious finding. Scatteredbenign-appearing calcifications are present. Scattered benign-appearing lymph nodes are present. RECOMMENDATIONS: ROUTINE MAMMOGRAM AND CLINICAL EVALUATION IN 12 MONTHS. PLEASE NOTE: A NORMAL MAMMOGRAM DOES NOT EXCLUDE THE POSSIBILITY OFBREAST CANCER. A CLINICALLY SUSPICIOUS PALPABLE LUMP SHOULD BE BIOPSIED. Dictated by: Robi Rodriguez M.D. on 06/30/2023 at 07:42 Approved by: Robi Rodriguez M.D. on 06/30/2023 at 07:45 Dictated By: Robi Rodriguez M.D. Signed By:06/30/23 0746 DD/ TD/TT: Unit Trust Manager: Authorizing ProviderResult TypeResult StatusShnabila Arshad MDCLINISYNC IMAGING Final Result documented in this encounter Visit Diagnoses Not on filedocumented in this encounter Care Teams Team MemberRelationshipSpecialtyStart DateEnd Date Shaikh Arshad MD PCP - GeneralInternal Medicine06/07/23 Shaikh Arshad MD [address] [place] [address] PCP - [facility]11/07/23documented as of this encounter
--- OUTSIDE RECORDS SUMMARY | 2025-03-19 10:19 | XMS_ITS | Patient Health Record ---
Author Organization [facility] [address] Address [address] [place] [address] Care Team Providers Care Flow Machine Operator Name Role Phone JOJO DUGAN, B[facility] MD [facility] Primary Care Provider Allergies No Known Allergies Reason For Referral No Information Medications Medication SIG (Take, Route, Frequency, Duration) Notes Start Date End Date Status hydrOXYzine HCl 25 MG 1 tablet as needed Orally Twice Daily UnknownLisinopril 10 mg tablet1 by mouth daily04/21/2015Not-TakingClopidogrel Bisulfate 75 MG1 tablet Orally Once a day; Duration: 30 daysUnknownPlavix 75 mg tablet1 by mouth daily06/09/2015Not-TakingAtenolol 50 MG1 tablet Orally Once a day; Duration: 30 daysUnknownAtenolol 50 mg tablet1 by mouth daily04/21/2015 Not-Takingcitalopram 10 mg tablet1 by mouth daily04/21/2015Not-TakingFamotidine 20 mg tablet1 by mouth daily04/21/2015Not-TakingClindamycin HCl 300 MG2 capsules Orally every 8 hrs; Duration: 10 day(s)UnknownEcotrin Low Strength 81 mg tablet,enteric coated1 by mouth daily04/21/2015Not-TakingLisinopril 5 MG1 tablet Orally Once a day; Duration: 30 daysUnknownNitroglycerin 0.4 MGas directed Sublingual; Duration: 30 days02/02/2021UnknownAtorvastatin Calcium 80 MG1 tablet Orally Once a day; Duration: 30 day(s)02/02/2021UnknownCitalopram Hydrobromide 40 MGOne tablet Orally Once a day; Duration: 30 daysUnknownatorvastatin 80 mg tablet1 by mouth daily06/09/2015Not-Taking Social History Tobacco Use: Social History Observation Description Date Details (start date - stop date) Current Smoker NA - NA Tobacco Use/Smoking Question Answer Notes Are you a current smoker How often do you smoke cigarettes?every dayHow many cigarettes a day do you smoke?6-10Alcohol Screen (Audit-C) Question Answer Notes Did you have a drink containing alcohol in the p ast year? No Lwtdxc2GzpnwjscsqthegLvhwliqq Problems Problem Type SNOMED Code ICD Code Onset Dates Problem Status W/U Status Risk Notes Problem Mixed hyperlipidemia (508962717) Mixed hyperlipidemia (E78.2) 07/23/2015 Active confirmed Cfc-008024-LrquevzIgwoxqvzn hypertension (10437100)Essential (primary) hypertension (I10)04/21/20157361FieegmbjbtuavnyTqx-675062-XmvwvhhCbioetgzwcrkbwz heart disease of [place] coronary artery without angina pectoris (469437417102142)Atherosclerotic heart disease of [place] coronary artery without angina pectoris (I25.10)04/21/20150451SbkngyehfasgqlzKqq-440281-EuemzqwBqd myocardial infarction (9244187)Old myocardial infarction (I25.2)04/21/[address] [facility] [id number]- Plan Of Treatment No Information Medical (General) History Medical History History ICD Code Mixed hyperlipidemia E78.2 Essential (primary) hypertension I10 Atherosclerotic heart diseas e of [place] coronary artery without angina pectoris I25.10 Old myocardial infarction I25.2 Surgical History Surgery Date(Month/Year) Cardiac cath w/ stent X2 Hospitalization History Reason Date(Month/Year) [facility]- E/R- Chest pain 01/2021
--- OUTSIDE RECORDS SUMMARY | 2025-03-19 10:19 | XMS_ITS | Patient Health Record ---
Author Organization [facility] Address [address] [place], [place] [id number] Care Team Providers Care Mill Controller Name Role Phone Lindsay Mckeon Primary Care Provider Batsheva Cagle Unavailable [phone] Allergies Allergen (clinical drug ingredient) Drug/Non Drug Allergy documented on EMR Reaction Allergy Type Onset Date Status No environmental allergies (uncoded)UnknownAllergyActiveNo known drugs allergies (uncoded)UnknownAllergyActiveNo known food allergies (uncoded)UnknownAllergy ActiveoxycodoneOxycodoneUnknownDrug AllergyActive Reason For Referral No Information Medications Medication SIG (Take, Route, Frequency, Duration) Notes Start Date End Date Status Citalopram Hydrobromide 20 MG Tablet 1 t ablet Orally Once a day; Duration: 90 days ActivelevETIRAcetam 500 MG Tablet1 tablet Orally every 12 hrsActiveOmeprazole 20 MG Capsule Delayed Release2 capsules Orally Once a day; Duration: 90 days 04/09/2016ActiveEzetimibe 10 MG Tablet1 tablet Orally Once a day; Duration: 90 daysActiveMontelukast Sodium 10 MG Tablet1 tablet Orally Once a day; Duration: 90 daysActiveAspir-81 81 MG Tablet Delayed Release1 tablet Orally Once a day; Duration: 90 daysActiveAtorvastatin Calcium 80 MG Tablet1 tablet Orally Once a dayActiveFish Oil 500 MG Capsule1 capsule Orally Twice a day; Duration: 30 day(s)Not-Taking/PRNLisinopril 5 MG Tablet1 tablet Orally once a day; Duration: 90 daysActiveMagnesium 200 MG Tablet2 tablets with a meal Orally Once a day; Duration: 30 day(s)Not-Taking/PRNAtenolol 50 MG Tablet1 tablet Orally Once a day; Duration: 90 daysActiveLovastatin 20 MG Tablet1 tablet with a meal Orally Once a day; Duration: 30 day(s)06/10/2016Not-Taking/PRNClopidogrel Bisulfate 75 MG Tablet1 tablet Orally Once a day; Duration: 30 day(s)ActivebusPIRone HCl 10 MG Tablet1 tablet Orally Twice a day; Duration: 90 daysActive Social History Tobacco Use: Social History Observation Description Date Details (start date - stop date) Former Smoker NA - NA Social History Sexual History:Social InfoQuestionAnswerNotesSexual HistoryHad sex in the past 12 months (vaginal, oral, or anal)?NoHave you ever had a Sexually transmitted disease?NoDrugs/Alcohol:Social InfoQuestionAnswerNotesAlcohol Screen (Audit-C) Did you have a drink containing alcohol in the past year?BoJoxjwe3Hhmragldrthpag NegativeDo you drink alcohol?.NoTobacco Use:Social InfoQuestionAnswerNotes Tobacco Control (Standard)Tobacco use:Former smoker Problems Problem Type SNOMED Code ICD Code Onset Dates Problem Status W/U Status Risk Notes Problem Obese class II (458123426828822) BMI 39.0-39.9,adult (Z68.39) 04/18/2024 Active confirmed BMI 39.00-39.99ProblemMixed hyperlipidemia (909813236)Mixed hyperlipidemia (E78.2)ActiveconfirmedProblemEssential hypertension (26760841)Essential hypertension (I10)ActiveconfirmedProblemDepressive disorder (disorder) (16163626)Depression, unspecified depression type (F32.9)ActiveconfirmedProblem Gastroesophageal reflux disease (disorder) (861377478)Chronic GERD (K21.9)Active confirmedProblemPulmonary nodule (372576079)Pulmonary nodule (R91.1)Active confirmedProblemHyperlipidemia (73556833)Hyperlipidemia (E78.5)Activeconfirmed ProblemGeneralized anxiety disorder (54094498)Anxiety, generalized (F41.1)Active confirmedProblemAtherosclerotic heart disease of [place] coronary artery without angina pectoris (641953594518259)Coronary artery disease involving [place] coronary artery of [place] heart without angina pectoris (I25.10)Activeconfirmed ProblemObesity (916060251)Obesity (BMI 30-39.9) (E66.9)ActiveconfirmedProblem Glioblastoma (6487314409)Glioblastoma (C71.9)Activeconfirmed Vital Signs Heart Rate 96 /min 04/18/2024 Tyesnoajsku10.7 degrees Yhgocpaspi11/11/2024espiratory Rate18 /min04/18/2024 Height-cm160.02 cm04/18/2024lood pressure gnarlhvck30 mm Hg04/18/2024Weight-kg 101.15 kg04/18/20249671Kgxnhg53 in04/18/2024lood pressure sznfedsj737 mm Hg 04/18/20242419Lznjmu066 lbs106/19/2023BMI39.5 kg/m204/18/2024 Encounters Encounter Location Date Provider Diagnosis [facility] Main [address] [place] [address] 04/18/2024 Lindsay Mckeon Essential hypertensi on I10 ; Glioblastoma C71.9 ; Mixed hyperlipidemia E78.2 ; Chronic GERD K21.9 ; Obesity (BMI 30-39.9) E66.9 ; Pulmonary nodule R91.1 ; Encounter for screening for other disorder Z13.89 ; Encounter for medical examination to establish care Z00.00 ; Screening for diabetes mellitus Z13.1 ; Routine screening for STI (sexually transmitted infection) Z11.3 ; Screening for other hemoglobinopathies Z13.0 ; Screening for metabolic disorder Z13.228 ; Screening for lipid disorders Z13.220 ; Anxiety, generalized F41.1 and BMI 39.0-39.9,adult Z68.39 Assessments Encounter Date Diagnosis (ICD Code) Assessment Notes Treatment Notes Treatment Clinical Notes Section Notes 04/18/2024 Essential hypertension (ICD-10 - I10) Continue current BP meds Practice the following healthy living habits: Eat a Healthy Diet. Choose healthy meal and snack options to help you avoid high blood pressure and its complications. Avoid high sodium foods Add more whole grains, low fat dairy, fruits and vegetables to your diet. Monitor blood pressure. 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 s/p surgery at [facility] - s/p Radiation treatment x 30 days - on Chemo - follows oncology 04/18/2024Mixed hyperlipidemia (ICD-10 - E78.2)Advised the patient of the dangers of elevated cholesterol and the need to monitor levels and maintain a well balanced high fiber diet along with regular exercise to help manage cholesterol.04/18/2024hronic GERD (ICD-10 - K21.9) Counseled the pt on the importance of eating last meal >2 hours before bedtime and to refrain from chocolate/alcohol intake prior to bed Discussed with pt need to elevate head of bed with pillows to maintain assistance of gravity in managing GERD Medication as above Reeval at next appt 04/18/2024Obesity (BMI 30-39.9) (ICD-10 - E66.9) Encourage healthy eating habits: Eat a high fiber diet Provide plenty of vegetables, fruits, and whole-grain products. Include low-fat or non-fat milk or dairy products. Choose lean meats, poultry, fish, lentils, and beans for protein. Limit consumption of saturated fat. Encourage your family to drink lots of water. No sugar-sweetened beverages (sodas, juice). Limit fast food, take-out food and eating out at restaurants Prepare foods at home as a family Serve reasonably-sized portions. 4Pulmonary nodule (ICD-10 - R91.1)04/18/2024Encounter for screening for other disorder (ICD-10 - Z13.89)04/18/2024Encounter for medical examination to establish care (ICD-10 - Z00.00)04/18/2024Screening for diabetes mellitus (ICD- 10 - Z13.1)4Routine screening for STI (sexually transmitted infection) (ICD-10 - Z11.3)04/18/2024Screening for other hemoglobinopathies (ICD-10 - Z13.0)04/18/2024Screening for metabolic disorder (ICD-10 - Z13.228)04/18/2024 Screening for lipid disorders (ICD-10 - Z13.220)4Anxiety, generalized (ICD-10 - F41.1)4BMI 39.0-39.9,adult (ICD-10 - Z68.39)BMI 39.00-39.99 Plan Of Treatment Pending Test Test Name Order Date CT Abdomen and Pelvis 06/10/2016 Hemoglobin [id number] 04/18/2024 CBC With Differential/Platelet-[facility] 04/08 HIV -1/0/2, 4th Generation 04/18/2024 Lipid Panel-[facility] 04/18/2024 CMP12+LP 06/10/2016 CMP14+eGFR-[facility] 04/18/2024 IFOB 06/10/2016 IFOB 06/07/2017 HEPATITIS C AB W/REFL TO HCV RNA, QN, PC R 04/18/2024 Medical (General) History Medical History History ICD Code hypertension UfdulkukysmcP79.5Acid oubkctN79.9heart attackSurgical History Surgery Date(Month/Year) Heart stent Hospitalization History Reason Date(Month/Year) [facility] 11/2023
--- OUTSIDE RECORDS SUMMARY | 2025-03-19 10:19 | XMS_ITS | Clinical Summary ---
Demographics Address [facility] [address] [place] [address] Home Phone Mobile Phone Email Address Preferred Language ENG Marital Status Presybeterian Affiliation Unknown Race White Ethnic Group Not or Lati no Author Organization [facility] Address [address] [place], [place] [id number] Care Team Providers Care Polysom Tech Name Role Phone Ann-Marie Lerner RN Unavailable [phone] Keith Bates MD Unavailable [phone] Emma Slater Unavailable Unavailable Allergies Active AllergyReactionsCriticalityNoted DateCommentsHydrocodoneHivesMedium 11/22/2023 HIVES, itching, red rash all over body. OxycodoneHives,YdgnBou7111/08/2023 Medications MedicationSigDispense QuantityRefillsLast FilledStart DateEnd DateStatus aspirin, enteric coated (ASPIRIN, ENTERIC COATED) 81 mg EC tablet Take 81 mg by mouth once daily./ctive ezetimibe (ZETIA) 10 mg tablet Take 10 mg by mouth once daily.4Active ondansetron orally disintegrating (ZOFRAN ODT) 4 mg disintegrating tablet Take 8 mg by mouth every 8 hours as needed.5Active prochlorperazine (COMPAZINE) 10 mg tablet Take 10 mg by mouth every 8 hours as needed./6Active senna-docusate (SENNA-S) 8.6-50 mg per tablet Take 1 tablet by mouth two times a day.01/27/2024ctive Acetaminophen 500 mg cap Take by mouth.Active fluticasone propionate (FLONASE NASAL) Use in the nose.Active lisinopril (ZESTRIL) 5 mg tablet Take 1 tablet by mouth once daily. 90 tablet 310/ 11:10 AM EDT/ctive citalopram (CELEXA) 20 mg tablet Take 1 tablet by mouth once daily 90 tablet 11:10 AM EDTctive busPIRone (BUSPAR) 10 mg tablet Indications:GBM (glioblastoma multiforme) (HCC),Anxiety neurosisTake 1 tablet by mouth two times a day. 180 tablet 11:10 AM EDTctive atorvastatin (LIPITOR) 80 mg tablet Take 1 tablet by mouth once daily. 90 tablet 11:10 AM EDTctive atenolol (TENORMIN) 50 mg tablet Take 1 tablet by mouth once daily. For 30 days 90 tablet 11:21 AM EDT5Active omeprazole (PRILOSEC) 20 mg capsule Take 1 capsule by mouth once daily. 90 capsule 02/26/2025 11:10 AM EDT16Active temozolomide (TEMODAR) 180 mg capsule Indications:GBM (glioblastoma multiforme) (HCC)Take 2 capsules (360 mg) by mouth once daily for 5 days. 10 capsule 02/27/2025 11:01 AM EDT15Active omeprazole (PRILOSEC) 20 mg capsule Take 20 mg by mouth once daily.02/26/2025Discontinued temozolomide (TEMODAR) 180 mg capsule Indications:GBM (glioblastoma multiforme) (HCC)Take 2 capsules (360 mg) by mouth once daily for 5 days. 10 capsule 02/04/2025 1:30 PM EDTDiscontinued amoxicillin-clavulanate potassium (AUGMENTIN) 875-125 mg per tablet Take 1 tablet by mouth every 12 hours for 7 days. 14 tablet /Expired Active Problems ProblemNoted DateDiagnosed DateGBM (glioblastoma multiforme)09/11/2024Pulmonary nodules/lesions, /06/2025 Encounters DateTypeDepartmentCare JhfnNbfgtmtpqcj12/24/2025Telephone Hematology/Oncology [address] [place] [address] [place] [address] Ann-Marie Lerner, RN Care Coordination (Cold Symptoms)02/26/2025 10:30 AM EDTVisit (SP) Office Hematology/Oncology [address] [place] [address] [place] [address] Jennifer Daley APRN.TECHNOLOGY INTERN Breast nodule (Primary Dx); Encounter for antineoplastic chemotherapy; GBM (glioblastoma multiforme) (HCC); Malaise and fatigue; Anxiety neurosis; Pulmonary nodules/lesions, multiple; Gastro-esophageal reflux disease without esophagitis; Constipation, unspecified constipation type02/26/20252424Ukwjvh93/08/2025Telephone [address] [address] Berto Bowles MD 8 weeks02/13/2025Orders Only [address] [address] Berto Bowles MD GBM (glioblastoma multiforme) (HCC) (Primary Dx)02/12/2025 1:00 PM EDTOffice Visit [address] [address] Berto Bowles MD GBM (glioblastoma multiforme) (HCC) (Primary Dx)02/12/20251775Txxjss34/05/2025 1:57 PM EDT - 02/10/2025 11:59 PM EDTHospital Encounter [facility] [place] [address] [place] [address] GBM (glioblastoma multiforme) (HCC) [C71.9] Discharge Disposition: Home02/08/2025 [place] [address] Provider, [facility] MRI Screening Questionnaire Completion Uypypkcc32/26/2025 1:30 PM EDTVisit (SP) Office Hematology/Oncology [address] [place] [address] [place], [place] [phone] Jennifer Daley APRN.TECHNOLOGY INTERN Breast nodule (Primary Dx); Encounter for antineoplastic chemotherapy; GBM (glioblastoma multiforme) (HCC); Pulmonary nodules/lesions, multiple; Anxiety neurosis; Malaise and csdtkbi7102/01/2025Refill [facility] [address] [place] [address] Keith Bates MD Refill Bakxuuz3702/01/2025Telephone Cancer [facility] [address] [place] [address] Jennifer Daley APRN.TECHNOLOGY INTERN Request Outside Medical Msjguyi5402/01/20255724Dkfzas05/11/2025 Patient [facility] HB-[address] [place] [address] Latanya Aquino RPh Medication Refill(s) Past Due01/04/2025 3:20 PM EDTVisit (SP) Office Hematology/Oncology [address] [place] [address] [place] [address] Keith Bates MD GBM (glioblastoma multiforme) (HCC); Encounter for antineoplastic chemotherapy; Dry skin; Allergic rhinitis, unspecified seasonality, unspecified vievwuj3901/04/2025Travel from Last 3 Months Family History Medical HistoryRelationCommentsHeart diseaseBrotherHypertensionBrotherSkin CancerBrotherProstate CancerFatherSkin CancerFatherDiabetesMaternal Grandfather Heart diseaseMaternal GrandfatherLiver DiseaseMaternal GrandmotherHypertension MotherLiver CancerMotherDiabetesPaternal GrandfatherNo Known ProblemsSister RelationStatusCommentsBrotherFatherMaternal GrandfatherMaternal Grandmother MotherPaternal GrandfatherSister Social History Tobacco UseTypesPacks/DayYears UsedDateSmoking Tobacco: FormerCigarettes Smokeless Tobacco: Never Tobacco Cessation:Counseling Given: Not Answered Alcohol UseStandard Drinks/WeekCommentsNot Currently0 (1 standard drink = 0.6 oz pure alcohol)PHQ-2AnswerDate RecordedPHQ-2 zeywg262UDIT-CAnswerDate RecordedQ1: How often do you have a drink containing alcohol?Never02/12/2025Q2: How many drinks containing alcohol do you have on a typical day when you are drinking?Patient does not drink02/12/2025Q3: How often do you have six or more drinks on one occasion?Never02/12/2025rea Deprivation IndexAnswerDate Recorded National Score (1-100), lower number is lower xoww181211/06/2024State Score (1- 10), lower number is lower bhug00411/06/2024Data from: https://www.neighborhoodatlas.[facility].edu/. Last address used for ktqcoyvothn290 [address] [place] 11/06/2024CommentsNoSex and Gender InformationValueDate RecordedSex Assigned at BirthNot on fileLegal SexFemale 08/07/2024 10:31 AM EDTGender IdentityNot on fileSexual OrientationNot on file Last Filed Vital Signs Vital SignReadingTime TakenCommentsBlood Bfviyibu827/8302/26/2025 10:24 AM EDT Bycqa864402/26/2025 10:24 AM SDYHmlrnpxvgyg62.3 ??C (97.3 ??F)02/26/2025 10:24 AM EDTRespiratory Vxrv5847 10:24 AM EDTOxygen Odmkxhsdme28%02/26/2025 10:24 AM EDTInhaled Oxygen Concentration--Cyyyeo360 kg (220 lb 7.4 oz)02/26/2025 10:24 AM SFTWlzzrp419.1 cm (5' 4.21 )02/01/2025 1:19 PM EDTBody Mass Index37.59 02/01/2025 1:19 PM EDT Plan of Treatment DateTypeDepartmentCare Team (Latest Contact Info)Nqzanaccltq49/18/2025 11:00 AM ESTOffice Visit [facility] [address] [place] [address] [place] [address] Maggy & US results with 03/26/2025 11:20 AM ESTVisit (SP) Office Hematology/Oncology [address] [place] [address] Keith Bates MD [address] [place] [address] Maggy & US results with Vik106/15/2024 2:00 PM [facility]App[facility] [address] [address] Scheduling Request - Established Gzniuqx6504/16/2025 10:00 AM [facility] [address] [place] [address] Berto Bowles MD [address] [facility] [address] [place], [place] [id number] Scheduling Request - Established PatientHealth MaintenanceDue DateLast Done CommentsAnxiety Kqqxsfgnb19/15/1983Depression Vzdqywkdq60/15/1983HIV Screening 1982Hepatitis C Pumdmnkph69/15/1983DTaP,Tdap,Td Vaccine (1 - Tdap) 11/21/1983Cervical Cancer Wajlghsqg55/15/1986Mammogram Icmdlntes36/15/2005CT Tuhrsqbjjalq60/15/2010Cologuard (FIT-DNA)11/20/20098122Ajllvxjhadu79/15/2010 Colorectal Cancer Sckhzailt24/15/2010Fecal Occult Blood2009Sigmoidoscopy 2009Pneumococcal Vaccine: 50+ (1 of 1 - PCV)2014Shingrix Vaccine (1 of 2)2014Lipid Qyhyxrvtu61Covid-19 Vaccine (1 - 2024- season)2025Influenza Vaccine (#1)2025Diabetes Mtthjccps90/21/2028 02/26/2025, 02/01/2025, 01/04/2025, Additional history existsRSV Vaccine (1 - 1- dose 75+ series)11/21/2039 Procedures Procedure NamePriorityDate/TimeAssociated DiagnosisCommentsCOMPREHENSIVE METABOLIC XOLSVSfuylmv04/21/2025 10:19 AM EDT GBM (glioblastoma multiforme) (HCC) CBC + UASLSevrzii89/21/2025 10:19 AM EDT GBM (glioblastoma multiforme) (HCC) MRI BRAIN WO/W BNLYEDtmofax04/05/2025 3:21 PM EDT GBM (glioblastoma multiforme) (HCC) COMPREHENSIVE METABOLIC PUYFZFmagvom48/26/2025 12:48 PM EDT GBM (glioblastoma multiforme) (HCC) CBC + MHWNSaoseha34/26/2025 12:48 PM EDT GBM (glioblastoma multiforme) (HCC) COMPREHENSIVE METABOLIC XJSBJVqeponf94/29/2025 3:02 PM EDT GBM (glioblastoma multiforme) (HCC) CBC + OEUEEaxayha81/29/2025 3:02 PM EDT GBM (glioblastoma multiforme) (HCC) from Last 3 Months Results * (ABNORMAL) COMPREHENSIVE METABOLIC PANEL (02/26/2025 10:19 AM EDT) Only the most recent of3 resultswithin the time period is included. ComponentValueRef RangeTest MethodAnalysis TimePerformed AtPathologist Signature Protein, Total7.46.3 - 8.0 g/dL02/26/2025 11:05 AM EDTNORTHCO[facility] LABAlbumin4.13.9 - 4.9 g/dL02/26/2025 11:05 AM EDTNORTHCOAST [facility] LABCalcium, Total9.88.5 - 10.2 mg/dL02/26/2025 11:05 AM EDT [facility] LABBilirubin, Total0.50.2 - 1.3 mg/dL 02/26/2025 11:05 AM EDTNORTHCOAST [facility] LABAlkaline Phosphatase 150(H)34 - 123 U/L1 11:05 AM EDTNORTHCOAST [facility] JXU2207 - 35 U/L1 11:05 AM EDTNORTHCOAST [facility] LABALT 177 - 38 U/L1 11:05 AM [facility] LABGlucose 136(H)74 - 99 mg/dL02/26/2025 11:05 AM [facility] Comment: The [place] Diabetes Association (ADA) provides guidance for cutoff values for fasting glucose andrandom glucose. The ADA defines fasting as no caloric intake for at least 8 hours. Fasting plasma glucose results between 100 to 125 mg/dL indicate increased risk for diabetes (prediabetes). Fasting plasma glucose results greater than or equal to 126 mg/dL meet the criteria for diagnosis of diabetes. In the absence of unequivocal hyperglycemia, results should be confirmed by repeat testing. In a patient with classic symptoms of hyperglycemia or hyperglycemic crisis, random plasma glucose results greater than or equal to 200 mg/dL meet the criteria for diagnosis of diabetes. Reference: Standards of Medical Care in Diabetes 2016, [place] Diabetes Association. Diabetes Care. 2016.39(Suppl 1). ENQ144 - 21 mg/dL02/26/2025 11:05 AM [facility] Creatinine0.710.58 - 0.96 mg/dL02/26/2025 11:05 AM [facility] ZITExcccj133379 - 144 mmol/L1 11:05 AM [facility] LABPotassium4.43.7 - 5.1 mmol/L1 11:05 AM [facility] NKPQsytmymu03740 - 107 mmol/L1 11:05 AM [facility] MAPXY714(L)22 - 30 mmol/L1 11:05 AM [facility] LABAnion Gap18(H)8 - 15 mmol/L1 11:05 AM [facility] LABEstimated Glomerular Filtration Rate97>=60 mL/min/1.73m 02/26/2025 11:05 AM [facility] LABComment:Estimated Glomerular Filtration Rate (eGFR) is calculated using the 2020 CKD-EPI creatinine equation. This equation utilizes serum creatinine, sex, and age as parameters. The creatinine assay has traceable calibration to isotope dilution- mass spectrometry. Refer to KDIGO guidelines for clinical interpretation. In patients with unstable renal function, e.g. those with acute kidney injury, the eGFRmay not accurately reflect actual GFR.Specimen (Source)Anatomical Location / LateralityCollection Method / VolumeCollection TimeReceived TimeBloodBLOOD SPECIMEN / UnknownVenipuncture / Onqnkac6302/26/2025 10:19 AM EDT1 10:20 AM EDT Narrative Authorizing ProviderResult TypeResult StatusKeith Bates MDLABORATORYFinal ResultPerforming OrganizationAddressCity/State/ZIP CodePhone Number [facility] [address] [place] [phone] * (ABNORMAL) COMPLETE BLOOD COUNT AND DIFFERENTIAL (02/26/2025 10:19 AM EDT) Only the most recent of3 resultswithin the time period is included. ComponentValueRef RangeTest MethodAnalysis TimePerformed AtPathologist Signature WBC4.273.70 - 11.00 k/uL02/26/2025 10:22 AM [facility]TN[facility] LABRBC4.113.90 - 5.20 m/uL02/26/2025 10:22 AM [facility]TN[facility] DELQrllfqvwkt93.711.5 - 15.5 g/dL02/26/2025 10:22 AM ED[facility] QOLFppaanpvog81.936.0 - 46.0 %02/26/2025 10:22 AM EDT [facility] WDBRKG48.180.0 - 100.0 fL02/26/2025 10:22 AM [facility]TNORT[facility] EQMUXN38.326.0 - 34.0 pg02/26/2025 10:22 AM [facility]TN[facility] YEPJWLH06.330.5 - 36.0 g/dL02/26/2025 10:22 AM EDTHE[facility] LABRDW-CV13.211.5 - 15.0 % 02/26/2025 10:22 AM [facility] LABPlatelet Vxgtq268(L) 150 - 400 k/uL02/26/2025 10:22 AM [facility] LABMPV9.1 9.0 - 12.7 fL02/26/2025 10:22 AM [facility] Neutrophils %73.1%02/26/2025 10:22 AM [facility] LAB Abs Neut3.121.45 - 7.50 k/uL02/26/2025 10:22 AM [facility] LABLymphocytes %14.8%02/26/2025 10:22 AM [facility] LABAbs Lymph0.63(L)1.00 - 4.00 k/uL02/26/2025 10:22 AM [facility] LABMonocytes %8.2%02/26/2025 10:22 AM [facility] LABAbs Mono0.35<0.87 k/uL02/26/2025 10:22 AM EDT [facility] LABEosinophils %3.0%02/26/2025 10:22 AM EDT [facility] LABAbs Eosin0.13<0.46 k/uL02/26/2025 10:22 AM [facility] LABBasophils %0.7%02/26/2025 10:22 AM EDT [facility] LABAbs Baso0.03<0.11 k/uL02/26/2025 10:22 AM [facility] LABImmature Granulocytes %0.2%02/26/2025 10:22 AM EDCAB[facility] LABAbs Immature Gran<0.03<0.10 k/uL02/26/2025 10:22 AM EDCAB[facility] LABNRBC0.0/100 WBC 02/26/2025 10:22 AM [facility]TN[facility] LABAbsolute nRBC<0.01 <0.01 k/uL02/26/2025 10:22 AM EDTNORICHWOOD [facility] LABDiff Type Auto02/26/2025 10:22 AM EDTHE[facility] LABSpecimen (Source)Anatomical Location / LateralityCollection Method / VolumeCollection TimeReceived TimeBloodBLOOD SPECIMEN / UnknownVenipuncture / Ttfbeyr3502/26/2025 10:19 AM EDT1 10:20 AM EDT Narrative Authorizing ProviderResult TypeResult StatusKeith Bates MDLABORATORYFinal ResultPerforming OrganizationAddressCity/State/ZIP CodePhone Number [facility] [address] [place] [address] * MRI BRAIN WO/W IVCON (02/10/2025 3:21 PM EDT)Anatomical RegionLaterality ModalityHeadMagnetic ResonanceSpecimen (Source)Anatomical Location / LateralityCollection Method / VolumeCollection TimeReceived Time02/10/2025 3:21 PM EDT Impressions 02/10/2025 5:17 PM EDT IMPRESSION: 1. ??GROSSLY STABLE SMALL RIGHT PARIETAL RESECTION CAVITY, SHOWING CONTINUED GRADUAL INVOLUTION SINCE 04/02/2024, WITH SMALL FOCUS OF STABLE ENHANCEMENT 2. ??NO PERFUSION ABNORMALITY OUTSIDE OF CONFOUNDING SUSCEPTIBILITY EFFECT 3. ??NO NEW DISTAL SUSPICIOUS ENHANCEMENT Vice President Biostatistics: PSCB ?? Transcribe Date/Time: Feb ??2024 ??4:57P Dictated by : GEORGI PEÑA MD This examination was interpreted and the report reviewed and electronically signed by: GEORGI PEÑA MD on Feb ??2024 ??5:14PM ??EST Narrative 02/10/2025 5:17 PM EDT * * *Final Report* * * DATE OF EXAM: Feb ??2024 ??3:21PM ?? [facility] ?? 0295 ??- ??MRI BRAIN WO/W IVCON ??/ PROCEDURE REASON: GBM (glioblastoma multiforme) (HCC) ? * * * * Physician Interpretation * * * * EXAMINATION: ??MRI BRAIN WO/W IVCON CLINICAL HISTORY: Glioblastoma (IDH wild type) presenting 11/29, resection 11/23/2023, subsequent chemoradiation completed 11/07/2024. ??Now for continued follow-up. TECHNIQUE: ??Routine brain MRI protocol without and with contrast including diffusion images. MQ: ??MRBWOW_2 Contrast: ??20 mL Dotarem IV COMPARISON: Brain MRI 11/25/2024, and multiple outside hospital MRIs, and going back to presentation on 12/02/2023 (demonstrating 4 cm cystic solid lesion in the right parietal lobe. RESULT: Acute Change: There is no evidence of restricted diffusion to suggest an acute infarct. Hemorrhage: Again seen are chronic hemorrhagic products along the resection cavity, unchanged Mass Lesion/ Mass Effect: Redemonstrated is previously seen right parietal craniotomy as approach for resection of subjacent mass. ??Again seen is a collapsed resection cavity, with small focus of enhancement. ?? Upon coregistration to 4 previous MRIs, there is certainly no growth in this region, and overall gradual involution of this area going back to 04/02/2024. ??There is negligible mass effect in this region. ??There is no new distal suspicious enhancement. ??There is no diffusion abnormality to suggest hypercellularity. Perfusion imaging is adequate in terms of full capture the bolus, negligible patient motion. ??There is some confounding susceptibility effect around the margins of the resection cavity, which includes the focus of enhancement. ??Within these limits there is no focus of suspiciously elevated CBV. Chronic Change: Scattered patchy areas of increased T2 and FLAIR signal ?? are present in the supratentorial white matter which is a nonspecific finding but likely represents mild chronic microvascular ischemia, unchanged Parenchyma: No significant volume loss for age. ??The brain parenchyma is otherwise within normal limits of signal intensity and morphology. Ventricles: Normal caliber and morphology. Skull Base: Hypothalamic and pituitary region are grossly normal. ?? Craniocervical junction is normal. No significant marrow replacement process. Vasculature: Major intracranial arterial structures, and dural venous sinuses show typical flow void, suggesting patency by spin echo criteria. Other: The visualized paranasal sinuses and mastoid air cells are clear. ?? The orbits and extracranial soft tissues are unremarkable. Procedure Note Provider, [facility] [place] - 02/10/2025 * * *Final Report* * * DATE OF EXAM: Feb 10 2025 3:21PM [facility] 0295 - MRI BRAIN WO/W IVCON / PROCEDURE REASON: GBM (glioblastoma multiforme) (HCC) * * * * Physician Interpretation * * * * EXAMINATION: MRI BRAIN WO/W IVCON CLINICAL HISTORY: Glioblastoma (IDH wild type) presenting 11/29, resection 11/23/2023, subsequent chemoradiation completed 11/07/2024. Now for continued follow-up. TECHNIQUE: Routine brain MRI protocol without and with contrast including diffusion images. MQ: MRBWOW_2 Contrast: 20 mL Dotarem IV COMPARISON: Brain MRI 11/25/2024, and multiple outside hospital MRIs, and going back to presentation on 12/02/2023 (demonstrating 4 cm cystic solid lesion in the right parietal lobe. RESULT: Acute Change: There is no evidence of restricted diffusion to suggest an acute infarct. Hemorrhage: Again seen are chronic hemorrhagic products along the resection cavity, unchanged Mass Lesion/ Mass Effect: Redemonstrated is previously seen right parietal craniotomy as approach for resection of subjacent mass. Again seen is a collapsed resection cavity, with small focus of enhancement. Upon coregistration to 4 previous MRIs, there is certainly no growth in this region, and overall gradual involution of this area going back to 04/02/2024. There is negligible mass effect in this region. There is no new distal suspicious enhancement. There is no diffusion abnormality to suggest hypercellularity. Perfusion imaging is adequate in terms of full capture the bolus, negligible patient motion. There is some confounding susceptibility effect around the margins of the resection cavity, which includes the focus of enhancement. Within these limits there is no focus of suspiciously elevated CBV. Chronic Change: Scattered patchy areas of increased T2 and FLAIR signal are present in the supratentorial white matter which is a nonspecific finding but likely represents mild chronic microvascular ischemia, unchanged Parenchyma: No significant volume loss for age. The brain parenchyma is otherwise within normal limits of signal intensity and morphology. Ventricles: Normal caliber and morphology. Skull Base: Hypothalamic and pituitary region are grossly normal. Craniocervical junction is normal. No significant marrow replacement process. Vasculature: Major intracranial arterial structures, and dural venous sinuses show typical flow void, suggesting patency by spin echocriteria. Other: The visualized paranasal sinuses and mastoid air cells are clear. The orbits and extracranial soft tissues are unremarkable. IMPRESSION IMPRESSION: 1. GROSSLY STABLE SMALL RIGHT PARIETAL RESECTION CAVITY, SHOWING CONTINUED GRADUAL INVOLUTION SINCE 04/02/2024, WITH SMALL FOCUS OF STABLE ENHANCEMENT 2. NO PERFUSION ABNORMALITY OUTSIDE OF CONFOUNDING SUSCEPTIBILITYEFFECT 3. NO NEW DISTAL SUSPICIOUS ENHANCEMENT Vice President Biostatistics: PSCB Transcribe Date/Time: Feb 10 2025 4:57P Dictated by : GEORGI PEÑA MD This examination was interpreted and the report reviewed and electronically signed by: GEORGI PEÑA MD on Feb 10 2025 5:14PM EST Authorizing ProviderResult TypeResult StatusMark Jhonathan Bowles MDMRI-PAMAFinal Result from Last 3 Months Insurance * Guarantor: Raeann Harrison TypeRelation to PatientDate of BirthPhoneBilling AddressPersonal/QwilpbHawj36/15/1966 [address] [place] [address] Care Teams Team MemberRelationshipSpecialtyStart DateEnd Ann-Marie Lerner RN [address] [place] [address] [place] [address] Specialty Care CoordinatorHematology/Oncology09/06/24 Keith Bates MD [address] [facility] [place] [address] PhysicianHematology/Oncology09/06/24 Emma Slater LSW Social Worker10/10/24
--- OUTSIDE RECORDS SUMMARY | 2025-03-19 10:19 | XMS_ITS | Clinical Summary ---
Author Organization [facility] s [facility] Address [facility] [place] [address] Care Team Providers Care Candy Attendant Name Role Phone No Pcp, No Pcp Primary Care Provider Unavailabl e Social History Tobacco UseTypesPacks/DayYears UsedDateSmoking Tobacco: Never Assessed CommentsUnknownSex and Gender InformationValueDate RecordedSex Assigned at Not on fileLegal VzvKoajcq56/26/2025 2:01 PM EDTGender IdentityNot on fileSexual OrientationNot on file Plan of Treatment Health MaintenanceDue DateLast DoneCommentsDepression Eyuzksczx08/15/1977Tobacco Bpfbvbsfm82/15/1977Adult BMI Lfbamyzzf45/15/1983DTaP,Tdap and Td Vaccines (1 - Tdap)11/21/1983Pap Smear1985Zoster (Shingles) Vaccine (1 of 2)2014 Influenza Cevceng3201/07/2025RSV ( or age 60+ yrs) (1 - 1-dose 75+ series) 11/21/2039 Medical Devices Not on file Insurance Care Teams Team MemberRelationshipSpecialtyStart DateEnd Date No Pcp, [place] [address] [facility] - [facility]/01/25
--- OUTSIDE RECORDS SUMMARY | 2025-03-19 10:19 | XMS_ITS | Encounter Summary ---
Author Organization [facility] Address [address] [place] [address] Care Team Providers Care Miniature Set Designer Name Role Phone Shaikh KAILEE Arshad Primary Care Provider [phone] Shaikh KAILEE Arshad Unavailable Encounter Details DateTypeDepartmentCare Team (Latest Contact Info)Uikvvaofabk24/18/2024Clinisync Result Encounter [facility] Department Unsolicited Shaikh Arshad MD [address] [place] [id number] Social History Tobacco UseTypesPacks/DayYears UsedDateSmoking Tobacco: FormerCigarettesPassive Smoke Exposure: PastSmokeless Tobacco: NeverAlcohol UseStandard Drinks/Week CommentsNever0 (1 standard drink = 0.6 oz pure alcohol)PHQ-2AnswerDate Recorded Patient Health Questionnaire-2 [id number] and Gender InformationValueDate RecordedSex Assigned at BirthNot on fileLegal Sex Htxnug8603/28/2023 2:19 PM ESTGender IdentityNot on fileSexual OrientationNot on filedocumented as of this encounter Plan of Treatment Not on file documented as of this encounter Procedures Procedure NamePriorityDate/TimeAssociated DiagnosisCommentsMR SHOULDER LEFT W/O 10/25/2023 11:18 AM EDT documented in this encounter Results * MR SHOULDER LEFT W/O (10/25/2023 11:18 AM EDT)Anatomical RegionLaterality ModalityRadiographic ImagingSpecimen (Source)Anatomical Location / Laterality Collection Method / VolumeCollection TimeReceived Time10/25/2023 11:18 AM EDT Narrative 10/25/2023 11:20 AM EDT [facility] ?[address] ? [place] [address] ? Magnetic Resonance Report ? Signed ? Patient: BABAR,FABRIZIO S ?MR#: [id number] ?? : 1965 ?Acct:[id number] ?? Age/Sex: 57 / F ?ADM Date: 10/23/ ?? Loc: MRI ? Attending Dr: Shaikh Pavithra Giron ? Ordering Physician: Shaikh Bree Arshad ?? Date of Service: 10/24/23 ?? Procedure(s): MR shoulder LT wo con ?? Accession Number(s): [id number] ? cc: Shaikh Bree Arshad ? [facility] ? [address] ? [place] [address] ? Patient Name: ?? FABRIZIO ECKERT ? MRN: [facility]:[id number] ? date: 1965 ?Sex: F ?? Assigned Patient Location: MRI ?? Current Patient Location: ? Accession/Order Number: [id number] ?? Exam Date: 10/24/2023 ??12:57 ?Report Date: 10/25/2023 ??11:18 ? At the request of: ?PAVITHRA ? Procedure: ??MR shoulder LT wo con ? EXAMINATION: MR shoulder LT wo con ? HISTORY: Acute left shoulder pain after falling ? COMPARISON: XR shoulder left 09/16/2023 ? TECHNIQUE: A variety of imaging planes and parameters were utilized for ?? visualization of suspected pathology. Imaging was performed without or with ?? contrast as indicated by examination type. ? FINDINGS: ?? ROTATOR CUFF REGION ?? CUFF TENDONS: Moderate increased signal intensity in the supraspinatus tendon ? indicates tendon degeneration and/or tendinitis. No merlin tear is seen. ?? CUFF MUSCLES: Normal appearing muscles. ?? DELTOID: Normal. No significant atrophy or tear. ?? LONG BICEPS TENDON: Normal. No abnormal signal, attrition, or tear. ?? LABRUM/BICEPS ANCHOR ?? SUPERIOR: Tear. ?? ANTERIOR/INFERIOR: Normal. No visible tear or attrition. ?? POSTERIOR: Normal. No posterior labrum abnormality. ?? CAPSULE ?? Normal. No visible capsular laxity or thickening. ?? AC JOINT REGION ?? AC JOINT: Mild osteoarthropathy with mild narrowing of the underlying ?? coracoacromial arch. ?? AC LIGAMENTS: Normal acromioclavicular ligament. ?? CC LIGAMENTS: Normal coracoclavicular ligaments. ?? ACROMION: Normal horizontal (Type I) configuration. ?? SUBACROMIAL BURSA: Normal. No significant effusion. ? HYALINE CARTILAGE: Normal. No visible cartilage narrowing or focal defect. ?? OTHER BONES: Normal proximal humerus, glenoid, and coracoid. ?? OTHER OBSERVATIONS: Negative. No other significant findings or glenohumeral ?? effusion. ? MR/MR shoulder LT wo con ?? IMPRESSION: ? 1. Suspected tear of the superior labrum. ?? 2. Mild strain of the supraspinatus tendon. ?? 3. Mild degenerative changes of the acromioclavicular joint with small ?? undersurface osteophytes which would predispose to rotator cuff injury. ? Electronically authenticated by: ROBI ??GABRIELA ?? Date: 10/25/2023 ??11:18 ? Dictated By: ?Robi Rodriguez M.D. ? Signed By: ?10/25/23 1120 ? DD/ 1118 ? TD/TT: ? Ground Wood Supervisor: Procedure Note Radiology, Radiologist, MD - 10/25/2023 [place] [address] Magnetic Resonance Report Signed Patient: FABRIZIO ECKERT [facility]#: [id number] : 1965Acct:[id number] Age/Sex: 57 / FADM Date: 10/24/23 Loc: MRI Attending Dr: Shaikh Pavithra Giron Ordering Physician: Shaikh Bree Arshad Date of Service: 10/24/23 Procedure(s): MR shoulder LT wo con Accession Number(s): [id number] cc: Shaikh Bree Arshad The [address] [address] Patient Name: FABRIZIO ECKERT MRN: [id number] date: 1965 Sex: F Assigned Patient Location: MRI Current Patient Location: Accession/Order Number: [id number] Exam Date: 10/24/2023 12:57 Report Date: 10/25/2023 11:18 At the request of: SHAIKH PAVITHRA Procedure: MR shoulder LT wo con EXAMINATION: MR shoulder LT wo con HISTORY: Acute left shoulder pain after falling COMPARISON: XR shoulder left 09/16/2023 TECHNIQUE: A variety of imaging planes and parameters were utilized for visualization of suspected pathology. Imaging was performed without orwith contrast as indicated by examination type. FINDINGS: ROTATOR CUFF REGION CUFF TENDONS: Moderate increased signal intensity in the supraspinatustendon indicates tendon degeneration and/or tendinitis. No merlin tear is seen. CUFF MUSCLES: Normal appearing muscles. DELTOID: Normal. No significant atrophy or tear. LONG BICEPS TENDON: Normal. No abnormal signal, attrition, or tear. LABRUM/BICEPS ANCHOR SUPERIOR: Tear. ANTERIOR/INFERIOR: Normal. No visible tear or attrition. POSTERIOR: Normal. No posterior labrum abnormality. CAPSULE Normal. No visible capsular laxity or thickening. 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 AC LIGAMENTS: Normal acromioclavicular ligament. CC LIGAMENTS: Normal coracoclavicular ligaments. ACROMION: Normal horizontal (Type I) configuration. SUBACROMIAL BURSA: Normal. No significant effusion. HYALINE CARTILAGE: Normal. No visible cartilage narrowing or focal defect. OTHER BONES: Normal proximal humerus, glenoid, and coracoid. OTHER OBSERVATIONS: Negative. No other significant findings orglenohumeral effusion. MR/MR shoulder LT wo con IMPRESSION: 1. Suspected tear of the superior labrum. 2. Mild strain of the supraspinatus tendon. 3. Mild degenerative changes of the acromioclavicular joint with small undersurface osteophytes which would predispose to rotator cuff injury. Electronically authenticated by: ROBI RODRIGUEZ Date: 10/25/2023 11:18 Dictated By: Robi Rodriguez M.D. Signed By:10/25/23 1120 DD/ 1118 TD/TT: Ground Wood Supervisor: Authorizing ProviderResult TypeResult StatusShnabila Arshad MDJEFFERSON COUNTY H[facility] XR PROCEDURES Final Result documented in this encounter Visit Diagnoses Not on filedocumented in this encounter Care Teams Team MemberRelationshipSpecialtyStart DateEnd Date Shaikh [facility] Shaikh Arshad MD [address] [place] [address] PCP - [facility]11/07/23documented as of this encounter
--- OUTSIDE RECORDS SUMMARY | 2025-03-19 10:19 | XMS_ITS | Patient Health Record ---
Author Organization [facility] Address [address] [place] [address] Care Team Providers Care Line Installer Repairer Name Role Phone GUMARO GRADY Primary Care Provider Allergies No Known Allergies Reason For Referral No Information Medications Medication SIG (Take, Route, Frequency, Duration) Notes Start Date End Date Status Clindamycin HCl 300 MG Capsule 1 capsule Orally every 8 hrs; Duration: 7 days Take with probiotic. 12/18/2020 ActiveAtenololActiveLisinoprilActiveAspirinActiveAtorvastatin CalciumActive Social History Sex Assigned At : Social History Observation Description Sex Assigned At Female Plan Of Treatment No Information Medical (General) History Medical History History ICD Code Heart Disease / Heart attack 2014 High Blood pressureArthritisStent placed in 2018
--- OUTSIDE RECORDS SUMMARY | 2025-03-19 10:19 | XMS_ITS | Clinical Summary ---
Author Organization [facility] Address [address] [place] [address] Care Team Providers Care Public Administration Professor Name Role Phone Shaikh KAILEE Arshad Primary Care Provider [phone] Shaikh KAILEE Arshad Unavailable [phone] Allergies Active AllergyReactionsCriticalityNoted IskpDowcaeafZnennysuvKtozTgj70/02/2024 Medications MedicationSigDispense QuantityRefillsLast FilledStart DateEnd DateStatus fluticasone (Flonase) 50 MCG/ACT nasal spray instill 2 (TWO) sprays nasally DAILY11/02/2022ctive aspirin 81 MG EC tablet Take 81 mg by mouth in the morning.Active atenolol (Tenormin) 50 MG tablet Indications:Atherosclerotic heart disease of [place] coronary artery without angina pectorisTake 1 tablet (50 mg) by mouth in the morning. 90 tablet 06/27/2023ctive busPIRone (Buspar) 10 MG tablet Indications:Depression with anxietyTake 1 tablet (10 mg) by mouth in the morning and 1 tablet (10 mg) before bedtime. 180 tablet 06/27/2023ctive lisinopril 5 MG tablet Indications:Essential (primary) hypertensionTake 1 tablet (5 mg) by mouth in the morning. 90 tablet ctive citalopram (CeleXA) 40 MG tablet Indications:Depression, unspecifiedTAKE 1 TABLET BY MOUTH DAILY 90 tablet ctive omeprazole (PriLOSEC) [address] capsule Indications:Gastro-esophageal reflux disease without esophagitisTAKE 1 CAPSULE BY MOUTH DAILY 90 capsule ctive ezetimibe (Zetia) 10 MG tablet Indications:Hyperlipidemia, unspecifiedTake 1 tablet (10 mg) by mouth Daily 90 tablet ctive montelukast (Singulair) 10 MG tablet Indications:Allergic rhinitis, unspecifiedTake 1 tablet (10 mg) by mouth Daily 90 tablet ctive atorvastatin (Lipitor) 80 MG tablet Indications:Other hyperlipidemiaTAKE 1 TABLET BY MOUTH IN THE MORNING 90 tablet 107ctive Active Problems ProblemNoted DateDiagnosed DateAcute pain of left ummrkzwz14/08/2024 Assessment & Plan (10/26/2023 9:05 AM EDT): Left shoulder pain x 8 weeks, persistent with radiation down to her hand. Pain is dull, with periods of sharp shooting pain down her hands Associated weakness noted. Keeping her arm close to chest as it makes her pain better. Unable to move her shoulder joint, ольга little to no abduction possible due to pain Pain started after she was moving furniture. No prior hx of surgery. XR - no sig abnormality noted. Patient reports her pain and weakness worsens after PT treatment andits not helping her at all. Pain is poorly controlled, affecting her ability to perform ADLs, sleep at night. MRI showed possible labral tear. No improvement with tylenol or NSAIDS. Refer to Orthopedic surgery. Assessment & Plan (10/04/2023 9:42 AM EDT): Left shoulder pain x 6 weeks, persistent with radiation down to her hand. Pain is dull, with periods of sharp shooting pain down her hands Associated weakness noted. Keeping her arm close to chest as it makes her pain better. Unable to move her shoulder joint, ольга little to no abduction possible due to pain Pain started after she was moving furniture. Suspect rotator cuff injury. No prior hx of surgery. XR - no sig abnormality noted. Patient reports her pain and weakness worsens after PT treatment andits not helping her at all. Pain is poorly controlled, affecting her ability to perform ADLs, sleep at night. Will order an MRIas poorly controlled pain, exam consistent with rotator cuff tear, and worsening pain/symptoms withPT. No improvement with tylenol or NSAIDS. Will order percocet as needed for pain. Discussed safe use of opioids, risk of tolerance and addiction. Avoid drinking, driving or operating any heavy machinery while on opioids. Assessment & Plan (09/14/2023 3:57 PM EDT): Left shoulder pain x 3 weeks, persistent with radiation down to her hand. Pain is dull, with periods of sharp shooting pain down her hands Associated weakness noted. Keeping her arm close to chest as it makes her pain better. Unable to move her shoulder joint, ольга little to no abduction possible due to pain Pain started after she was moving furniture. Suspect rotator cuff injury. No prior hx of surgery. Will start with an XR, PT eval and rx. Prednisone taper for pain. Can use tylenol or motrin also for pain. Will likely need an MRI - awaiting XR results. Elevated random blood glucose level06/30/2023 Assessment & Plan (06/30/2023 3:48 PM EST): Elevated blood glucose on routine labs. Check A1C. Lung uftezqwbs07/22/2024 Assessment & Plan (06/30/2023 3:48 PM EST): Noted on CT chest, multiple, no nodules. Encouraged smoking cessation. Ordered PFTs. 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 Current smoker. Will check SIMA, Calcitriol levels and PFTs No signs and symptoms to suggest underlying reactive airway disease. Non-recurrent acute suppurative otitis media of both ears without spontaneous rupture of tympanic lfdeblbuf73/22/2024 Assessment & Plan (06/30/2023 3:48 PM EST): Exam c/w bilateral JUAN CARLOS Will call in PO augmentin. Primary jaodlnqxucpl99/11/2024 Assessment & Plan (06/30/2023 3:35 PM EST): BP well controlled. On average less than 130/90. Tolerating Anti hypertensive w/o adverse effects. Denies lightheadedness, dizziness, syncope, presyncope. Patient encouraged to continue with home BP monitoring and call office if he experiences orthostatic symptoms or persistently elevated BP. C/w lisinopril 5 mg. Assessment & Plan (05/20/2023 6:46 PM EST): BP well controlled. On average less than 130/90. Tolerating Anti hypertensive w/o adverse effects. Denies lightheadedness, dizziness, syncope, presyncope. Patient encouraged to continue with home BP monitoring and call office if he experiences orthostatic symptoms or persistently elevated BP. C/w lisinopril, atenolol Other ljllmjsojqlyiq60/11/2024bnormal chest x-ray with multiple lung nodules 05/19/2023 Assessment & Plan (05/20/2023 6:45 PM EST): XR 07/29 multiple lung nodules. CXR was performed when she got COVID. CT scan was ordered given her age, hx of smoking but she never got it due to health insurance and wanted to wait until her insurance changed next year. She is agreeable to get a CT chest now. Ordered. Screening mammogram, encounter for05/19/2023 Assessment & Plan (05/20/2023 6:47 PM EST): Ordered mammogram. Depression with sjuumwg9405/19/2023 Assessment & Plan (05/20/2023 6:46 PM EST): Symptoms well controlled with celexa and buspirone. Mood stable. YOVANY (obstructive sleep apnea)05/19/2023 Assessment & Plan (05/20/2023 6:20 PM EST): Reports frequent nocturnal awakenings, excessive snoring, apneic episodes. She reports not feeling refreshed upon waking up, and dozes off sometimes while watching TV or at work. Likely has underlying YOVANY. Will refer to Sleep Clinic for evaluation. No formal, prior diagnosis ofOSA. Tobacco zxtctstlke50/11/2024 Assessment & Plan (05/20/2023 6:47 PM EST): Patient counseled on smoking/tobacco cessation. Patient educated on harmful effects of smoking cigarettes/tobacco including increased risk of cardiovascular diseases, chronic lung disease and multiple cancers. Patient was educated and informed of different behavioral and therapeutic interventions that can help with smoking/tobacco use. Patient's questions/concerns were addressed and answered related to therapeutic options. Patient was offered help and encouraged to reach out to provider if/when they are ready to quit. A total of over 3 minutes and up to 10 minutes were spent on Smoking/Tobacco use counseling. Prescribed nicotine patches, lozenges. Xzevxufcoiesrj01/11/2024 Assessment & Plan (06/30/2023 3:36 PM EST): Above goal, while on Lipitor 80 mg. Added zetia. Follow up lipid panel in 6-8 weeks Assessment & Plan (05/20/2023 6:46 PM EST): Check Lipid panel. On Lipitor 80 mg. Coronary artery disease involving [place] coronary artery of [place] heart without angina kwboizbu77/06/2019 Assessment & Plan (05/19/2023 4:10 PM EST): S/p PCI - 2012 and 2018. On ASA , Lipitor, ezetimibe. Social History Tobacco UseTypesPacks/DayYears UsedDateSmoking Tobacco: FormerCigarettesPassive Smoke Exposure: PastSmokeless Tobacco: Never Tobacco Cessation:Counseling Given: Not Answered Alcohol UseStandard Drinks/WeekCommentsNever0 (1 standard drink = 0.6 oz pure alcohol)PHQ-2AnswerDate RecordedPatient Health Questionnaire-2 Siowj597 CommentsUnknownSex and Gender InformationValueDate RecordedSex Assigned at BirthNot on fileLegal SqjBwitrg54/20/2023 2:19 PM ESTGender IdentityNot on fileSexual OrientationNot on file Last Filed Vital Signs Vital SignReadingTime TakenCommentsBlood Corxkxkg199/8005 9:07 AM EDT Zeliu46313/28/2024 9:07 AM EDT96% F6Sfiyqjsamnw40.6 ??C (97.8 ??F)10/04/2023 9:07 AM EDTRespiratory Rate--Oxygen Oozzfaxuzn24%05/19/2023 3:53 PM ESTInhaled Oxygen Concentration--Zwdysj40.4 kg (217 lb)11/08/2023 2:31 PM INWIuhdle619 cm (5' 3 )11/08/2023 2:31 PM EDTBody Mass Index38.4407 2:31 PM EDT Plan of Treatment Health MaintenanceDue DateLast DoneCommentsCT Aigorugcezyq18/15/1965Colonoscopy 1965Colorectal Cancer Jkrmhualc08/15/1965FIT-DNA1964FIT1965 FOBT1965 1332Wiuorzyduzrgb16/15/1965Pneumococcal Vaccine: Pediatrics (0 to 5 Years) and At-Risk Patients (6 to 64 Years) (1 of 2 - PCV)11/21/1983Pap Smear 1985Cervical Cancer Qfliekeup99/15/1995HPV/Zofung7811/20/1994Mammogram 504COVID-19 Vaccine ( season)2025Influenza Vaccine (#1)2025 Procedures Procedure NamePriorityDate/TimeAssociated DiagnosisCommentsMM TOMOSYNTHESIS SCREENING BI06/30/2023 7:45 AM EST from Last 3 Months or Most Recently Relevant to Health Maintenance Results * MM TOMOSYNTHESIS SCREENING BI (06/30/2023 7:45 AM EST)Anatomical Region LateralityModalityOtherSpecimen (Source)Anatomical Location / Laterality Collection Method / VolumeCollection TimeReceived Time06/30/2023 7:45 AM EST Narrative 06/30/2023 7:46 AM EST [facility] ?[address] ? [place] [address] ? Mammography Report ? Signed ? Patient: BABAR,FABRIZIO S ?MR#: [id number] ?? : 1965 ?Acct:[id number] ?? Age/Sex: 57 / F ?ADM Date: 06/29/23 ?? Loc: MAMMO ? Attending Dr: Shaikh Pavithra Giron ? Ordering Physician: Shaikh Bree Arshad ?Results: ? Date of Service: 06/29/23 ?Follow Up: ? Procedure(s): MM tomosynthesis screening BI ?? Accession Number(s): [id number] ? cc: Shaikh Bree Arshad ? Patient Name: ? FABRIZIO ECKERT ? MR#: [id number] ? : 1965 ? Exam Date: 06/29/2023 [...] Cancers ? None ? LOCATION: ? [facility] ? BREAST COMPOSITION: ? Scattered areas [...] By: ?Robi Rodriguez M.D. ? Signed By: ?06/30/2346 ? DD/ 0745 ? TD/TT: ? Transition Coach: Procedure Note Radiology, Radiologist, MD - 06/30/2023 [place] [address] Mammography Report Signed Patient: FABRIZIO ECKERT SMR#: [id number] : 1965Acct:[id number] Age/Sex: 57 / FADM Date: 06/29/23 Loc: MAMMO Attending Dr: Shaikh Pavithra Giron Ordering Physician: Shaikh Bree ArshadResults: Date of Service: 06/29/23Follow Up: Procedure(s): MM tomosynthesis screening BI Accession Number(s): [id number] cc: Shaikh Bree Arshad Patient Name: FABRIZIO ECKERT MR#: [id number] : 1965 Exam Date: 06/29/2023 Ordering Doctor: Shaikh Ellen Stallings RADIOLOGY REPORT PROCEDURE: MM TOMOSYNTHESIS SCREENING BI COMPARISON: None. INDICATIONS: Screening Calculator Name NCI Breast Cancer Risk Assessment Tool 5 Year Breast Cancer Risk 1.30% Lifetime Breast Cancer Risk 7.60% Personal Breast Cancer No Personal Ovarian Cancer No Treatments None Family Cancers None LOCATION: [facility] BREAST COMPOSITION: Scattered areas fibroglandular density. [...] 07:45 Dictated By: Robi Rodriguez M.D. Signed By:06/30/2346 DD/ TD/TT: Transition Coach: Authorizing ProviderResult TypeResult StatusLourdes Hospitalyakov Arshad [facility] Final Result from Last 3 Months or Most Recently Relevant to Health Maintenance Insurance Care Teams Team MemberRelationshipSpecialtyStart DateEnd Date Shaikh Arshad MD PCP - [facility]06/07/23 Shaikh Arshad MD [address] [place] [address] PCP - [facility]11/07/23
--- NOTE | 2025-03-19 10:25 | US_ITS ---
Patient Name: FABRIZIO ECKERT MR#: [id number] : 1965 Exam Date: 03/19/2025 Ordering Doctor: ROSETTA DASH RADIOLOGY REPORT PROCEDURE: MM TOMOSYNTHESIS DIAGNOSTIC BI, 03/19/2025, 10:21 US BREAST LT LIMITED, 03/19/2025, 11:21 COMPARISON: MM TOMOSYNTHESIS SCREENING BI, 06/29/2023. INDICATIONS: Breast Nodule Calculator Name NCI Breast Cancer Risk Assessment Tool 5 Year Breast Cancer Risk 1.40% Lifetime Breast Cancer Risk 7.20% Personal Breast Cancer No Personal Ovarian Cancer No Treatments None Family Cancers None LOCATION: [facility] BREAST COMPOSITION: There are scattered areas of fibroglandular density. FINDINGS: RIGHT BREAST: No significant suspicious finding. Similar focal asymmetries are present with benign-appearing calcifications . LEFT BREAST: No significant suspicious finding. New areas of focal asymmetry within the superior aspect of the left breast corresponding to palpable abnormalities. These are predominantly within the 12 o'clock position. These partially persist on spot compressed views. Limited left breast ultrasound: There is an anechoic 3 x 3 x 3 mm wider than tall well circumscribed smoothly marginated cyst at the 11 o'clock position corresponding to the mammographic abnormality. Adjacent to this is a similar slightly complicated 3 x 2 x 2 mm cyst within turn of the repaired At the 12 o'clock position there is a 3 x 3 x 4 mm smoothly marginated predominately anechoic cyst with internal septations. At the 1 o'clock position there is a well-circumscribed predominately anechoic 6 x 7 x 6 mm wider than tall cyst. There is internal debris. No evidence of mass, architectural torsion, or atypical calcification. DIAGNOSTIC CATEGORY 3--PROBABLY BENIGN FINDING. THE FOLLOWING FINDING(S) HAS A HIGH PROBABILITY OF A BENIGN ETIOLOGY: RECOMMENDATIONS: SHORT TERM FOLLOW-UP DIAGNOSTIC MAMMOGRAM LEFT BREAST IN 6 MONTHS. SHORT TERM FOLLOW-UP ULTRASOUND LEFT BREAST IN 6 MONTHS. Dictated by: Berto Giles MD on 03/19/2025 at 11:55 Approved by: Berto Giles MD on 03/19/2025 at 12:11
== END 2025-03-19 10:15 | disposition home or self-care (01) ==
LOC: MAMMO 10:16
PROVIDERS: Visit Provider Nurse Practitioner Gerontology
DX: N63.0 Unspecified lump in unspecified breast (principal); R92.8 Other abnormal and inconclusive findings on diagnostic imaging of breast
CPT/HCPCS: 76642; 77066; G0279

== ENCOUNTER 2025-04-12 13:09 | Emergency (ER) | payer OTHER, SELFPAY ==
[2025-04-12 13:17] VITALS: BP 220/96; PULSE 100; TEMP 37.1; O2SAT 96; BMI 38.8
--- NOTE | 2025-04-12 13:22 | ED.GENADUL1 ---
HPI HPI - General Adult General Chief complaint: Dental/Oral Stated complaint: dental pain Time Seen by Provider: 04/12/25 13:17 Source: patient Mode of arrival: walk-in History of Present Illness HPI narrative: 59-year-old female presents for toothache. She is complaining of pain to her left upper dentition and has a dentist and she has been trying to make an appointment. The pain is moderate and continuous. She did not take her blood pressure medication today, her blood pressure was noted to be elevated at triage. Related Data Home Medications ?Medication ?Instructions ?Recorded ?Confirmed atenolol 50 mg tablet mg 04/12/25 atorvastatin 80 mg tablet mg 04/12/25 buspirone 10 mg tablet mg 04/12/25 citalopram 20 mg tablet mg 04/12/25 ezetimibe 10 mg tablet mg 04/12/25 levetiracetam 500 mg tablet mg PO 04/12/25 lisinopril 5 mg tablet mg 04/12/25 montelukast 10 mg tablet mg 04/12/25 omeprazole 20 mg capsule,delayed mg 04/12/25 release Previous Rx's ?Medication ?Instructions ?Recorded acetaminophen 300 mg-codeine 30 mg 1 tab PO Q6H PRN pain 5 days #20 04/12/25 tablet tabs ibuprofen 800 mg tablet 800 mg PO Q8H PRN pain #20 tabs 04/12/25 ondansetron 4 mg disintegrating 4 mg PO Q6H PRN nausea and 04/12/25 tablet vomiting #20 tabs Allergies Allergy/AdvReac Type Severity Reaction Status Date / Time No Known Drug Allergies Allergy Verified 04/12/25 13:14 Opioid HPI Opioid Management Most Recent Opioid Data: Last Pain Scale 10 Today, 13:17 Review of Systems ROS Narrative A ten point review of systems is negative except as noted above. PFSH PFSH Social History Little interest or pleasure in doing things: not at all Feeling down, depressed, or hopeless: not at all Exam Narrative Exam Narrative: Nurses note and vital signs reviewed General:The patient appears well and in no apparent distress. Patient is resting comfortably on cart. Skin:Warm, dry, no pallor noted.There is no rash noted. Head:Normocephalic, atraumatic Eye: Normal conjunctiva, no drainage Ears, Nose, Mouth, and Throat: oral mucosa is moist. Nares patent. There may be mild swelling of her face and the left upper jaw area. No erythema. No swelling to the floor of her mouth. She is handling oral secretions well. Dental caries is noted in the left upper dentition posteriorly. No bleeding or pus present. No gingival swelling or erythema. Cardiovascular:Regular Rate and Rhythm Respiratory:Patient is in no distress, no accessory muscle use GI: Nontender Musculoskeletal: No joint swelling Neurological:A&O, normal speech Psychiatric:Cooperative Constitutional Vital Signs, click to edit/add: Last Vital Signs Temp 98.7 F 04/12/25 13:17 Pulse 100 H 04/12/25 13:17 Resp 18 04/12/25 13:17 BP 220/96 H 04/12/25 13:17 Pulse Ox 96 04/12/25 13:17 O2 Del Method Room Air 04/12/25 13:17 Course Vital Signs Vital signs: Vital Signs Temperature 98.7 F 04/12/25 13:17 Pulse Rate 100 H 04/12/25 13:17 Respiratory Rate 18 04/12/25 13:17 Blood Pressure 220/96 H 04/12/25 13:17 Pulse Oximetry 96 04/12/25 13:17 Oxygen Delivery Method Room Air 04/12/25 13:17 Temperature 98.7 F 04/12/25 13:17 Pulse Rate 100 H 04/12/25 13:17 Respiratory Rate 18 04/12/25 13:17 Blood Pressure 220/96 H 04/12/25 13:17 Pulse Oximetry 96 04/12/25 13:17 Oxygen Delivery Method Room Air 04/12/25 13:17 Medical Decision Making [facility] Narrative Medical decision making narrative: She is provided prescriptions for penicillin, Tylenol 3, and ibuprofen. Follow-up promptly with her dentist. Treatment diagnosis and follow-up were discussed with the patient. Differential Diagnosis Differential Diagnosis: Dental caries, dental abscess, gingivitis Discharge Plan Discharge Chief Complaint: Dental/Oral Clinical Impression: Dental caries Patient Disposition: Home, Self-Care Time of Disposition Decision: 13:21 Condition: Good Mode of Transportation: Private Vehicle Prescriptions / Home Meds: New acetaminophen-codeine 300-30 mg tablet 1 tab PO Q6H PRN (Reason: pain) 5 Days Qty: 20 0RF ibuprofen 800 mg tablet 800 mg PO Q8H PRN (Reason: pain) Qty: 20 0RF ondansetron 4 mg tablet,disintegrating 4 mg PO Q6H PRN (Reason: nausea and vomiting) Qty: 20 0RF No Action atorvastatin 80 mg tablet levetiracetam 500 mg tablet PO citalopram 20 mg tablet buspirone 10 mg tablet omeprazole 20 mg capsule,delayed release(DR/EC) montelukast 10 mg tablet lisinopril 5 mg tablet atenolol 50 mg tablet ezetimibe 10 mg tablet Print Language: [place] Instructions: Toothache (ED) Referrals: Physician,Non-Staff, MD [Primary Care Provider] - 1 week
--- OUTSIDE RECORDS SUMMARY | 2025-04-12 13:32 | XMS_ITS | CCD ---
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 Name Role Phone PETE AMEER Referring Unavailable SEAN, LAURA A Primary Care Unavailable PETE AMEER Admitting Unavailable KAJOSE AMGEOFFR Attending Unavailable Mccone, Laura Primary Care Provider [phone] RHETT NAQVI Referring Unavailable SEAN, LAURA A [...] Care Unavailable Suzi Martinez Primary Care Provider Suzi Martinez Primary Care Provider [phone] Provider, None Primary Care Unavailable Len Garcia Attending Unavailable Len Garcia Admitting Unavailable PAL ANDERSON Admitting Unavailable GABRIELA, DR JUNITO Pisano Consulting Unavailable PAVITHRA, H Primary Care Unavailable PAL ANDERSON Attending Unavailable PAL ANDERSON Consulting Unavailable MARKER, DR JUNG Attending Unavailable MARKER, DR JUNG Admitting Unavailable RAFAT MCMANUS Consulting Unavailable PAVITHRA, MCCAULEY H Primary Care Unavailable MARKER, DR JUNG Consulting Unavailable LEN DONATO Consulting Unavailable PAL ANDERSON Attending Unavailable PAL ANDERSON Admitting Unavailable MYRA, DR CEASAR Pichardo Consulting Unavailable PAVITHRA, MCCAULEY H Primary Care Unavailable PAL ANDERSON [...] MCCAULEY Attending Unavailable FAWWAD, MCCAULEY Attending Unavailable ERINN OLIVERA Attending Unavailable FAWWAD, MCCAULEY Referring Unavailable MICHELLE, JORDON Attending Unavailable FAWWAD, MCCAULEY Referring Unavailable MICHELLE, JORDON Attending Unavailable FAWWAD, MCCAULEY Referring Unavailable FAWWAD, MCCAULEY Attending Unavailable MICHELLE, JORDON Attending Unavailable FAWWAD, MCCAULEY Referring Unavailable MICHELLE JORDON Attending Unavailable FAWWAD, MCCAULEY Referring Unavailable MARIELA MARTINEZH Attending Unavailable FAWWAD, MCCAULEY Referring Unavailable SIDDHARTH OLIVER Attending Unavailable FAWWAD, MCCAULEY Referring Unavailable BRYAN ROCK Attending Unavailable Unavailable Primary Care Provider Unavailfly Mitchell RN, Simone Unavailable [phone] Keith Dorsey MD Unavailable [phone] Emma Villegas Unavailable Unavailable TRACIE MCCLAIN Referring Unavailable ABHYANKAR, KEITH Referring Unavailable TOÑA FRANKLIN Attending Unavailable ABHYANKAR, KEITH Referring Unavailable TRACIE MCCLAIN Attending Unavailable ABHYANKAR, KEITH Referring Unavailable ABHYANKAR, KEITH Referring Unavailable ABHYANKAR, KEITH Referring Unavailable ABHYANKAR, KEITH Attending Unavailable ABHYANKAR, KEITH Referring Unavailable ABHYANKAR, KEITH Referring Unavailable ABHYANKAR, KEITH Referring Unavailable SELF Referring Unavailable ABHYANKAR, KEITH Attending Unavailable JENNIFER DASH Attending Unavailable KINZAANKAR, KEITH Referring Unavailable TRACIE MCCLAIN Attending Unavailable TRACIE MCCLAIN Referring Unavailable ABHYANKAR, KEITH Referring Unavailable ABHYANKAR, KEITH Referring Unavailable ABHYANKAR, KEITH Referring Unavailable ABHYANKAR, KEITH Attending Unavailable ABHYANKAR, KEITH Referring Unavailable EKTA, JENNIFER Attending Unavailable ABHYANKAR, KEITH Referring Unavailable ABHYANKAR, KEITH Referring Unavailable ABHYANKAR, KEITH Referring Unavailable ABHYANKAR, KEITH Attending Unavailable ABHYANKAR, KEITH Referring Unavailable ABHYANKAR, KEITH Referring Unavailable ABHYANKAR, KEITH Referring Unavailable ABHYANKAR, KEITH Attending Unavailable Shaikh Arshad MD Primary Care Provider [phone] Shaikh Arshad MD Unavailable Allergies Allergy ClassificationReported Allergen(s)Allergy TypeDate of OnsetReaction(s) Facility (4 sources)Seasonal allergyAllergy to nxuhrklda94-89-0935[facility] Work Phone: (20 sources)HYDROcodone; 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: [HYDROCODONE]Drug Gzlewmf13-38-2260Gqoty [facility] (20 sources)oxyCODONE; 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: [OXYCODONE]Drug Kdjbkab16-32-6180Yteui, [facility] Medications Current Medications MedicationDrug Class(es)DatesSig (Normalized)Sig (Original)acetaminophen 500 mg oral capsule (20 sources)Acetaminophen 500 mg cap Take by mouth. Activeaspirin 81 mg delayed release oral tablet (20 sources)Platelet Aggregation Inhibitor, Nonsteroidal Anti-inflammatory Drug Start: 12-05-2023 End: 46-12-8338abrl 1 tablet by mouth once dailyaspirin, enteric coated (ASPIRIN, ENTERIC COATED) 81 mg EC tablet Take 81 mg by mouth once daily. 09/05/2026 ActiveAspirin Adult Low Strength 81MG Oral Tablet Delayed Release (9 sources)Start: 34-51-4469Ugbmfcu Adult Low Strength 81MG Oral Tablet Delayed Release 09/12/2018 Provider:atenolol 50 mg oral tablet (20 sources)beta-Adrenergic BlockerStart: 03-03-6740nzvc 1 tablet by mouth once dailyatenolol (TENORMIN) 50 mg tablet Take 1 tablet by mouth once daily. For 30 days 90 tablet 3 12/11/2024 11:21 AM EDT 12/07/2024 ActiveStart: 09-12-2018 End: 14-42-1389Tefbewyh 50 MG Oral Tablet 11/08/2019 - 11/16/2019 Provider: Suzi Martinez CNPatorvastatin 80 mg oral tablet (20 sources)HMG-CoA Reductase InhibitorStart: 01-21-2020 End: 69-26-1811mtwk 1 tablet by mouth once daily in the morningatorvastatin (LIPITOR) 80 mg tablet Take 1 tablet by mouth once daily. 90 tablet 3 12/07/2024 9:51 AM EDT 11/06/2024 11/06/2025 ActivebusPIRone hydrochloride 10 mg oral tablet (20 sources)Start: 06-27-2023 End: 93-21-2318fvii 1 tablet by mouth in the morningbusPIRone (Buspar) 10 MG tablet Indications: Depression with anxiety Take 1 tablet (10 mg) by mouthin the morning and 1 tablet (10 mg) before bedtime. 180 tablet 06/27/2023 Active calcium carbonate 500 mg chewable tablet (1 source)Start: 02-15-3420gxjz 200 mg by mouth every eight hours as needed calcium carbonate (TUMS) 500 mg chew Take 200 mg by mouth three times a day as needed. 12/05/2023 Activecitalopram 20 mg oral tablet (20 sources)Serotonin Reuptake InhibitorStart: 11-06-2024 End: 93-58-2402fxdh 1 tablet by mouth once daily in the morningcitalopram (CELEXA) 20 mg tablet Take 1 tablet by mouth once daily 90 tablet 3 12/07/2024 9:51 AM EDT 11/06/2024 11/06/2025 ActiveStart: 04-30-2020 End: 76-16-1465fdui 1 tablet by mouth once dailycitalopram (CeleXA) 40 MG tablet Indications: Depression, unspecified TAKE 1 TABLET BY MOUTH DAILY 90 tablet 1 07/25/2023 ActiveStart: 09-12-2018 End: 04-56-8948Vchgehejwk Hydrobromide 20MG Oral Tablet 10/25/2018 - 11/24/2018 Provider: Yevgeniy Park CNPdexamethasone 1 mg oral tablet (1 source)CorticosteroidStart: 50-93-3639gnee 1 tablet by mouth once daily at breakfastdexAMETHasone (DECADRON) 1 mg tablet Take 1 mg by mouth daily with breakfast. 02/10/2024 ActivediphenhydrAMINE hydrochloride 25 mg oral tablet (1 source)Histamine-1 Receptor AntagonistStart: 48-61-6456Tymyzpvq Allergy 25 MG Oral Tablet 07/03/2020 Provider:docusate sodium 50 mg / sennosides, group home 8.6 mg oral tablet (20 sources)Start: 76-32-0685dhdj 1 tablet by mouth twice dailysenna-docusate (SENNA-S) 8.6-50 mg per tablet Take 1 tablet by mouth two times a day. 01/27/2024 Activeezetimibe 10 mg oral tablet (20 sources)Dietary Cholesterol Absorption InhibitorStart: 42-04-4115rfwx 1 tablet by mouth once dailyezetimibe (Zetia) 10 MG tablet Indications: Hyperlipidemia, unspecified Take 1 tablet (10 mg) by mouth Daily 90 tablet 1 07/25/2023 Activefluticasone propionate 0.05 mg/actuat metered dose nasal spray (20 sources)CorticosteroidStart: 90-17-2160nxoe 2 spray(s) nasal route once dailyfluticasone (Flonase) 50 MCG/ACT nasal spray instill 2 (TWO) sprays nasally DAILY 11/02/2022 Activefluticasone propionate (FLONASE NASAL) Use in the nose. ActiveGINSENG PO (2 sources)GINSENG PO Take by mouth. ActivehydrOXYzine hydrochloride 25 mg oral tablet (5 sources)AntihistamineStart: 04-30-2020 End: 41-21-7266vnzrBEEjdnq HCl 25 MG Oral Tablet 07/03/2020 Provider: Suzi Martinez CNPiv contrast (will be provided with radiology test) (12 sources)Start: 12-06-2024 End: 24-26-6362djymtg 1 dose intravenously onceiv contrast (will be provided with radiology test) Indications: GBM (glioblastoma multiforme) (HCC)MRI Brain Inject, intravenously, once for 1 dose.No IV access, insert saline lock prior to beginning of sedation, infusion, injection of imaging exam.Discontinue saline lock post exam. If Pt. has a central line or IVAD, may access for administration according to line specific nursing protocol.Once exam is complete flush line and de-access according to line specific nursing protocol in the MR contrast administration guidelines link 1 each 12/06/2024 12/07/2024 ActiveStart: 12-05-2024 End: 98-56-2343zxhjvb 1 dose intravenously onceiv contrast (will be provided with radiology test) Indications: GBM (glioblastoma multiforme) (HCC)MRI Brain Inject, intravenously, once for 1 dose.No IV access, insert saline lock prior to beginning of sedation, infusion, injection of imaging exam.Discontinue saline lock post exam. If Pt. has a central line or IVAD, may access for administration according to line specific nursing protocol.Once exam is complete flush line and de-access according to line specific nursing protocol in the MR contrast administration guidelines link 1 each 12/05/2024 12/06/2024 ActiveStart: 11-06-2024 End: 35-28-3593udkszx 1 dose intravenously onceiv contrast (will be provided with radiology test) Indications: GBM (glioblastoma multiforme) (HCC), Pulmonary nodules/lesions, multiple MRI Brain Inject, intravenously, once for 1 dose.No IV access, insert saline lock prior to beginning of sedation, infusion, injection of imaging exam.Discontinuesaline lock post exam. If Pt. has a central line or IVAD, may access for administration according to line specific nursing protocol.Once exam is complete flush line and de-access according to line [facility] nursing protocol in the MR contrast administration guidelines link 1 each 11/06/2024 11/07/2024 ExpiredStart: 11-06-2024 End: 66-31-3391zxwahz 1 dose intravenously onceiv contrast (will be provided with radiology test) Indications: GBM (glioblastoma multiforme) (HCC), Pulmonary nodules/lesions, multiple MRI Brain Inject, intravenously, once for 1 dose.No IV access, insert saline lock prior to beginning of sedation, infusion, injection of imaging exam.Discontinuesaline lock post exam. If Pt. has a central line or IVAD, may access for administration according to line specific nursing protocol.Once exam is complete flush line and de-access according to line [facility] nursing protocol in the MR contrast administration guidelines link 1 each 11/06/2024 11/07/2024 ActivelevETIRAcetam 500 mg oral tablet (20 sources)Start: 09-11-2024 End: 26-73-4578kdif 1 tablet by mouth twice daily in the eveninglevETIRAcetam (KEPPRA) 500 mg tablet Take 1 tablet by mouth two times a day. 180 tablet 3 09/11/2024 3:28 PM EDT 09/11/2024 09/11/2025 Activelisinopril 5 mg oral tablet (20 sources)Angiotensin Converting Enzyme InhibitorStart: 09-12-2018 End: 69-83-5836rpkz 1 tablet by mouth in the morninglisinopril 5 MG tablet Indications: Essential (primary) hypertension Take 1 tablet (5 mg) by mouth in the morning. 90 tablet 1 06/27/2023 Activemontelukast 10 mg oral tablet (2 sources)Leukotriene Receptor AntagonistStart: 73-83-2063qbon 1 tablet by mouth once dailymontelukast (Singulair) 10 MG tablet Indications: Allergic rhinitis, unspecified Take 1 tablet (10 mg) by mouth Daily 90 tablet 1 07/25/2023 Activeomeprazole 20 mg delayed release oral capsule (20 sources)Proton Pump InhibitorStart: 34-06-9696jvrn 1 capsule by mouth once dailyomeprazole (PriLOSEC) [address] capsule Indications: Gastro-esophageal reflux disease without esophagitis TAKE 1 CAPSULE BY MOUTH DAILY 90 capsule 1 07/25/2023 Activeondansetron 4 mg disintegrating oral tablet (20 sources)Serotonin-3 Receptor AntagonistStart: 07-69-3554uwrg 2 tablets by mouth every eight hours as neededondansetron orally disintegrating (ZOFRAN ODT) 4 mg disintegrating tablet Take 8 mg by mouth every 8 hours as needed. 06/27/2024 ActivepredniSONE 20 mg oral tablet (2 sources)Start: 11-12-2024 End: 04-53-1250nrqv 2 tablets by mouth once dailypredniSONE (DELTASONE) 20 mg tablet Take 2 tablets by mouth once daily for 4 days. 8 tablet 11/12/2024 11/16/2024 Activeprochlorperazine 10 mg oral tablet (20 sources)PhenothiazineStart: 06-27-2024 End: 23-23-2470qdrw 1 tablet by mouth every eight hours as needed prochlorperazine (COMPAZINE) 10 mg tablet Take 10 mg by mouth every 8 hours as needed. 06/27/2024 06/22/2025 Activetemozolomide 180 mg oral capsule (20 sources)Alkylating DrugStart: 12-07-2024 End: 79-01-0870vzrf 2 capsules by mouth once dailytemozolomide (TEMODAR) 180 mg capsule Indications: GBM (glioblastoma multiforme) (HCC) Take 2 capsules (360 mg) by mouth once daily for 5 days. 10 capsule 01/04/2025 02/01/2025 Active Start: 08-28-2024 End: 88-31-8495byzs 2 capsules by mouth once daily in the eveningtemozolomide (TEMODAR) 180 mg capsule Indications: GBM (glioblastoma multiforme) (HCC) Take 2 capsules (360 mg) by mouth once daily for 5 days. 10 capsule 11/06/2024 2:54 PM EDT 11/06/2024 ActiveStart: 05-04-2024 End: 14-48-4667Yyjqyctpzsqv 140 mg capsule Take 140 mg by mouth as directed. 05/04/2024 09/07/2024 ActiveStart: 05-04-2024 End: 56-79-1320ankoseywubwa (TEMODAR) 180 mg capsule Take 180 mg by mouth as directed. 05/04/2024 09/07/2024 Active Completed/Discontinued Medications MedicationDrug Class(es)DatesSig (Normalized)Sig (Original)amoxicillin 500 mg oral capsule (15 sources)Penicillin-class AntibacterialStart: 05-18-2019 End: 62-94-4005Jftavdykmcx 500 MG Oral Capsule 05/18/2019 - 04/30/2020 Provider: Maulik Geiger MDStart: 04-17-2019 End: 00-41-3643Mxxuvazxqwo 500 MG Oral Tablet 04/17/2019 - 04/24/2019 Provider: Carlitos Summers DDSclopidogrel 75 mg oral tablet (20 sources)P2Y12 Platelet InhibitorStart: 04-18-2019 End: 11-38-5470Nrbnhscyibp Bisulfate 75 MG Oral Tablet 11/08/2019 - 11/16/2019 Provider: Suzi Martinez CNPFish Oils (9 sources)Start: 09-12-2018 End: 35-78-8833Ziji Oil 1000MG Oral Capsule 09/12/2018 - 04/25/2019 Provider: Start: 40-88-6776Mxhe Oil 1000MG Oral Capsule 09/12/2018 Provider:lovastatin 20 mg oral tablet (18 sources)HMG-CoA Reductase InhibitorStart: 09-12-2018 End: 17-92-5108Dnbavanatc 20MG Oral Tablet 09/14/2018 - 03/13/2019 Provider: Laura Ramirez CNPMagnesium (9 sources)Start: 09-12-2018 End: 27-17-0112Gbgnawtqb 500MG Oral Tablet 09/12/2018 - 04/25/2019 Provider: Start: 78-91-6488Imwtpycja 500MG Oral Tablet 09/12/2018 Provider: Problems Active Problems Problem ClassificationProblemDateDocumented DateEpisodic/ChronicAbdominal pain (2 sources)Unspecified abdominal pain; 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: [Right upper quadrant pain] Onset: 25-81-2794XrjqkxzbJpesnoplja disorders (4 sources)Adjustment disorder with anxious mood; 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: [Adjustment Disorder with Anxiety]Onset: 40-82-4986RrjkohtBewutuw disorders (10 sources)Anxiety disorder; 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: [Generalized anxiety disorder]Onset: 827488-89-1125ZbukizjZbcdmk of brain and nervous system (20 sources)Glioblastoma multiforme ; 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: [Malignant neoplasm of brain, unspecified]Onset: 958299-40-2905ChkegnyCtjgzafy atherosclerosis and other heart disease (12 sources)Coronary arteriosclerosis; 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: [Atherosclerotic heart disease of [place] coronary artery without angina pectoris]Onset: 09-14-2018 ChronicDisorders of lipid metabolism (16 sources)Hyperlipidemia; 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: [Hyperlipidemia, unspecified]Onset: 143572-91-5280BalrtizJ Codes: Struck by; against (1 source)Other cause of strike by thrown, projected or falling object, initial encounter; 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: [OTHCAUSE STRIK THRWN/FALL OBJ INIT]Onset: 04-30-2022 EpisodicEpilepsy; convulsions (2 sources)Epilepsy; 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: [Epilepsy, unspecified, not intractable, without status epilepticus]Onset: 937961-08-1900QpoabbzWdgqncpkos disorders (2 sources)Gastroesophageal reflux disease without esophagitis; 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: [Gastro-esophageal reflux disease without esophagitis]Onset: 11-06-2024 14-28-3298BnxyqffQdupsuhnt hypertension (18 sources)Benign essential hypertension; 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: [Hypertensive disorder] Onset: 015271-78-8820CjnmzxxQcnbiodynqepb symptoms and ill-defined conditions (4 sources)Hematuria, unspecified; 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: [HEMATURIA UNSPECIFIED]Onset: 94-05-8297AdwlzsboZqjzqamboilp with complications and secondary hypertension (2 sources)Hypertensive heart AND renal disease; 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: [Hypertensive heart and chronic kidney disease with heart failure and stage 1 through stage 4 chronic kidney disease, or unspecified chronic kidneydisease]Onset: 11-06-2024 27-32-5607KzlrsyeVvhomjsk disorders (5 sources)Pulmonary sarcoidosis; 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]Onset: 628407-95-1404RwojkknAwqjuvlfygmsm and screening for infectious disease (4 sources)Exposure to communicable disease; 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: [Virus (organism)] Onset: 61-81-7290HwqqmgdgLngodysvmvg chemotherapy; radiotherapy (3 sources)Patient encounter status; 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: [Encounter for antineoplastic chemotherapy]Onset: 418790-13-7446OstnaaeLdlo disorders (19 sources)Depressive disorder; 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: [Recurrent major depression in full remission]Onset: 881717-62-7119CuqqtqgAevjsvtrezis breast conditions (1 source)Unspecified lump in unspecified breast; 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: [Breast nodule] Onset: 76-29-6093PouxokazJnqva aftercare (1 source)Other terminal operations supervisor (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 therapy; 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: [OTH TALENT PARTNER CURRENT DRUG THERAPY]Onset: 12-36-7987PccuikakXdhdo aftercare (1 source)terminal operations supervisor (current) use of aspirin; 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: [TALENT PARTNER CURRENT USE OF ASPIRIN]Onset: 53-94-2695TgobhehcGrerx aftercare (1 source)Encounter for palliative care; 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: [Encounter for palliative care]Onset: 76-52-1852SkxavxlmLrvog connective tissue disease (3 sources)Pain in left foot; 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: [PAIN IN LEFT FOOT]Onset: 04-28-2022 EpisodicOther liver diseases (1 source)Fatty (change of) liver, not elsewhere classified; 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: [Hepatic steatosis]Onset: 31-33-0791HjmoheeKcsxp lower respiratory disease (5 sources)Pulmonary granuloma; 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: [Pulmonary fibrosis, unspecified] Onset: 997646-82-4626NlimybvDikqu nutritional; endocrine; and metabolic disorders (17 sources)Simple obesity ; 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: [Obesity Exogenous Due To Excess Calories]Onset: 41-60-6741SzguoxvZshii skin disorders (1 source)Xeroderma; 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: [Xerosis cutis]98-65-1296JsexfiniMjlvw skin disorders (1 source)Xerosis cutis; 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: [Dry skin]Onset: 58-55-2456YjhormglLzaqb upper respiratory disease (1 source)Allergic rhinitis; 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: [Allergic rhinitis, unspecified] 81-77-4574HmwhyvpLkdvn upper respiratory disease (1 source)Allergic rhinitis, unspecified; 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: [Allergic rhinitis, unspecified seasonality, unspecified trigger]Onset: 23-49-3385CukbqaaFvxyyhsw codes; unclassified (1 source)Presence of other specified functional implants; 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: [Presence of other specified functional implants]Onset: 97-20-9972Pciynno Residual codes; unclassified (5 sources)Obstructive sleep apnea syndrome; 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: [Obstructive sleep apnea (adult) (pediatric)]Onset: 433174-14-7928QlttvwmUgxzintqr-wdlhdca disorders (6 sources)Nicotine dependence, cigarettes, uncomplicated; 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: [Tobacco dependence syndrome]Onset: 865547-56-9380BoqwncnHvacvvuuxir injury; contusion (1 source)Contusion of left foot, initial encounter; 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: [CONTUSION LEFT FOOT INITIAL ENC]Onset: 08-86-1622MncuvtjqDsnvmbugbdez (1 source)COUGH, UNSPECIFIED; 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: [COUGH, UNSPECIFIED]Onset: 51-11-1570Nwxdwwbieryo (2 sources)CONTACT W/AND (SUSP) EXPOS COVID-19; 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: [CONTACT W/AND (SUSP) EXPOS COVID-19]Onset: 40-12-1029Dulkbtzvxtoy (1 source)Established PatientOnset: 49-70-9249Amwpg infection (1 source)COVID-19; 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: [COVID-19]Onset: 10-16-2021 Past or Other Problems Problem ClassificationProblemDateDocumented DateEpisodic/ChronicDiabetes mellitus without complication (5 sources)High glucose level in blood; 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: [Hyperglycemia, unspecified]Onset: 834304-06-8688TdrhwldxDnyao of unknown origin (4 sources)Fever, unspecified; 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: [FEVER UNSPECIFIED]Onset: 96-52-4591NvkzyhttKvev disorders (3 sources)Recurrent mild major depressive disorder co-occurrent with anxiety; 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: [Mood disorders]Onset: 75-25-6957Hklwhqd (3 sources)Onychomycosis of toenails; 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: [Dermatophytosis Onychomycosis Toenails Right 1st]Onset: 63-58-3573JeuffldtUwkct lower respiratory disease (20 sources)Multiple nodules of lung; 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: [Other nonspecific abnormal finding of lung field]Onset: 436178-82-6276OxeoblcqFpdci lower respiratory disease (6 sources)Other nonspecific abnormal finding of lung field; 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: [Other nonspecific abnormal findingof lung field]Onset: 781443-68-0330 EpisodicOther non-traumatic joint disorders (3 sources)Hand joint pain; 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: [Arthralgia - Hand Right]Onset: 08-24-2191BjxebgqbZknhr non-traumatic joint disorders (5 sources)Pain in left shoulder; 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: [Pain in joint, shoulder region] Onset: 636904-32-8886WvbeptuzSiysq screening for suspected conditions (not mental disorders or infectious disease) (10 sources)Encounter for screening for diabetes mellitus; 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: [Patient encounter status]Onset: 450434-34-8218CrxwptlwDmzfu upper respiratory infections (8 sources)Upper respiratory infection; 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: [Acute sinusitis, unspecified]Onset: 82-65-0826JzslzdyoKftimw media and related conditions (5 sources)Acute suppurative otitis media without spontaneous rupture of ear drum; 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: [Acute suppurative otitis media without spontaneous rupture of ear drum, bilateral]Onset: 898388-51-7231IncebkduFdycxgzefoyt (19 sources)Finding of body mass index; 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: [Body Mass Index]Onset: 92-48-9040Dtdocvslfkdm (3 sources)History AND physical examination; 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: [Routine History and Physical]Onset: 99-55-7350Vzovxnuitnxx (3 sources)Questionnaires Phq-9 Total Score; 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: [Questionnaires Phq-9 Total Score]Onset: 40-02-2114Dyfczzdxxyhg (3 sources)Fagerstrom Score; 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: [Fagerstrom Score]Onset: 04-25-2019 Unclassified (1 source)CONTACT W/AND (SUSP) EXPOS COVID-19; 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: [CONTACT W/AND (SUSP) EXPOS COVID-19]Onset: 10-13-2021 Results Test NameValueInterpretationReference RangeFacilityCNPNon 66-11-6009POYO Telephone (HEMASA) RAEANN ECKERT ([id number]) 1965 F Date Time Provider Department 03/01/25 SIMONE MITCHELL During your visit today, we recorded the following information about you: Simone Mitchell RN 03/01/2025 1:16 PM Signed Pt on day 2 of her current Temodar cycle. Reports temp of 99 w/ chills. Has a sore throat and runny nose w/ yellow drainage. Denies cough. States she just doesn't feel well. Symptoms began last night. Has taken only Tylenol. Please advise. Thanks! Preferred Pharmacy: [facility] Mind[facility] M, PA-C 03/01/2025 3:22 PM Signed WBC was normal on 02/26/25 when she saw Jennifer, so not neutropenic. Will prescribe antibiotic to take although likely viral in nature. ERIC Najera Rebecca, RN 03/01/2025 3:43 PM Signed Pt notified of script and verbalizes understanding. Simone Mitchell RN Allergies As of Date: 03/01/2025 Noted Allergy Reaction HYDROCODONE 11/22/2023 4 - Hives Comments: HIVES, itching, red rash all over body. OXYCODONE 11/08/2023 4 - Hives 2 - Rash Date Reviewed: 03/01/2025 Reviewed by: Toña Franklin PA-C - Fully Assessed Reason for Visit: Care Coordination [3491] Cmt: Cold Symptoms Order(s):amoxicillin-clavulanate potassium (AUGMENTIN) 875-125 mg per tabletTake 1 tablet by mouth every 12 hours for 7 days.Disp: 14 tabletRfl: 0 Prescriptions as of 03/01/2025 - amoxicillin-clavulanate potassium (AUGMENTIN) 875-125 mg per tablet Take 1 tablet by mouth every 12 hours for 7 days. - omeprazole (PRILOSEC) 20 mg capsule Take 1 capsule by mouth once daily. - temozolomide (TEMODAR) 180 mg capsule Take 2 capsules (360 mg) by mouth once daily for 5 days. - atenolol (TENORMIN) 50 mg tablet Take 1 tablet by mouth once daily. For 30 days - lisinopril (ZESTRIL) 5 mg tablet Take 1 tablet by mouth once daily. - citalopram (CELEXA) 20 mg tablet Take 1 tablet by mouth once daily - busPIRone (BUSPAR) 10 mg tablet Take 1 tablet by mouth two times a day. - atorvastatin (LIPITOR) 80 mg tablet Take 1 tablet by mouth once daily. - Acetaminophen 500 mg cap Take by mouth. - fluticasone propionate (FLONASE NASAL) Use in the nose. - aspirin, enteric coated (ASPIRIN, ENTERIC COATED) 81 mg EC tablet Take 81 mg by mouth once daily. - ezetimibe (ZETIA) 10 mg tablet Take 10 mg by mouth once daily. - ondansetron orally disintegrating (ZOFRAN ODT) 4 mg disintegrating tablet Take 8 mg by mouth every 8 hours as needed. - prochlorperazine (COMPAZINE) 10 mg tablet Take 10 mg by mouth every 8 hours as needed. - senna-docusate (SENNA-S) 8.6-50 mg per tablet Take 1 tablet by mouth two times a day. Problem List As Of Date 03/01/2025 Noted Resolved GBM (glioblastoma multiforme) (HCC) [C71.9] 09/11/2024 Pulmonary nodules/lesions, multiple [R91.8] 09/11/2024 Prescriptions ordered this encounter Disp Refills Start End AMOXICILLIN 875 MG-POTASSIUM CLAVULA* 14 t* 0 03/01/2025 03/08/2025 Route: PO Sig: Take 1 tablet by mouth every 12 hours for 7 days. Encounter Status:Closed by SIMONE MITCHELL on 03/01/25NormalCBucyrus [facility] W Auto Differential panel (Bld)on 90-24-6045Kqhpylciw (Bld) [#/Vol] 0.03 10*3/uLNormal<0.11CMagruder Memorial Hospital on above:Order Comment: Specimen Type: BLOOD SPECIMENOrdering Facility: [facility] Address:[address] [place], [place] [address]Performed By: #### 49724-9 ####[facility] LABCLIA [id number] [place], [place] [address]Hgkyixxyy/100 WBC (Bld)0.7 %NormalHenry County Hospital on above:Order Comment: Specimen Type: BLOOD SPECIMENOrdering Facility: [facility] Address:[address] [place], [place] [address]Performed By: #### 04552-8 ####[facility] LABCLIA [id number] [place], [place] [address]Ospososoahny cell count method Nom (Bld)AutoNormalCMagruder Memorial Hospital on above:Order Comment: Specimen Type: BLOOD SPECIMENOrdering Facility: [facility] Address:[address] [place], [place] [address]Performed By: #### 51651-4 ####[facility] LABIA [id number] [place], [place] [address]Ucvmeuwumrn (Bld) [#/Vol]0.13 10*3/uLNormal<0.46[facility] on above:Order Comment: Specimen Type: BLOOD SPECIMENOrdering Facility: [facility] Address:[address] [place], [place] [address]Performed By: #### 05588-7 ####[facility] LABCLIA [id number] [place], [place] [address]Nxlxirvegvw/100 WBC (Bld)3.0 %NormalHenry County Hospital on above:Order Comment: Specimen Type: BLOOD SPECIMENOrdering Facility: [facility] Address:[address] [place], [place] [address]Performed By: #### 07013-2 ####[facility] LABIA [id number] [place], [place] [address]Owvwcerhnei distribution width (RBC) [Ratio]13.2 %Normal 11.5-15.0[facility] on above:Order Comment: Specimen Type: BLOOD SPECIMENOrdering Facility: [facility] Address:[address] [place], [place] [address]Performed By: #### 82021-3 ####[facility] LABIA [id number] [place] [address] Hematocrit (Bld) [Volume fraction]39.9 %Pjkraf93.0-46.0[facility] on above:Order Comment: Specimen Type: BLOOD SPECIMENOrdering Facility: [facility] Address:[address] [place], [place] [address]Performed By: #### 94435-6 ####[facility] LABIA [id number] [place], [place] [address]Ttjealtchx (Bld) [Mass/Vol]13.7 g/qCLzktak75.5-15.5CMagruder Memorial Hospital on above:Order Comment: Specimen Type: BLOOD SPECIMENOrdering Facility: [facility] Address:[address] [place], [place] [address]Performed By: #### 40856-0 ####[facility] LABIA [id number] [place], [place] [address]Cnkqqlgj granulocytes (Bld) [#/Vol]10*3/uLNormal<0.10 [facility] on above:Order Comment: Specimen Type: BLOOD SPECIMENOrdering Facility: [facility] Address:[address] [place], [place] [address]Performed By: #### 49726-9 ####[facility] LABCLIA [id number] [place], [place] [address]Kizhywtu granulocytes/100 WBC (Bld)0.2 %[facility] on above: Order Comment: Specimen Type: BLOOD SPECIMENOrdering Facility: [facility] Address:[address] [place], [place] [address]Performed By: #### 13740- 8 ####[facility] LABCLIA [id number] [place], [place] [address]Clevhodxfnb (Bld) [#/Vol]0.63 10*3/uLLow1.00-4.00 [facility] on above:Order Comment: Specimen Type: BLOOD SPECIMENOrdering Facility: [facility] Address:[address] [place], [place] [address]Performed By: #### 90708-8 ####[facility] LABIA [id number] [place], [place] [address]Osaqwhusslh/100 WBC (Bld)14.8 %NormalHenry County Hospital on above:Order Comment: Specimen Type: BLOOD SPECIMENOrdering Facility: [facility] Address:[address] [place], [place] [address]Performed By: #### 49479-2 ####[facility] LABCLIA [id number] [place], [place] [address]MUD (RBC) [Entitic mass]33.3 dcEqfjgs52.0-34.0[facility] on above:Order Comment: Specimen Type: BLOOD SPECIMENOrdering Facility: [facility] Address:[address] [place], [place] [address]Performed By: #### 91381-1 ####[facility] LABCLIA [id number] [place], [place] [address]WTCX (RBC) [Mass/Vol]34.3 g/xMAkhwwc10.5-36.0[facility] on above: Order Comment: Specimen Type: BLOOD SPECIMENOrdering Facility: [facility] Address:[address] [place], [place] [address]Performed By: #### 93265- 8 ####[facility] LABCLIA [id number] [place], [place] [address]CGA (RBC) [Entitic vol]97.1 wIWjxqhd31.0-100.0[facility] on above:Order Comment: Specimen Type: BLOOD SPECIMENOrdering Facility: [facility] Address:[address] [place], [place] [address]Performed By: #### 10889-9 ####[facility] LABIA [id number] [place], [place] [address]Puvqhkovj (Bld) [#/Vol]0.35 10*3/uLNormal<0.87[facility] on above:Order Comment: Specimen Type: BLOOD SPECIMENOrdering Facility: [facility] Address:[address] [place], [place] [address]Performed By: #### 31968- 8 ####[facility] LABCLIA [id number] [place], [place] [address]Uvyssnvog/100 WBC (Bld)8.2 %NormalHenry County Hospital on above:Order Comment: Specimen Type: BLOOD SPECIMENOrdering Facility: [facility] Address:[address] [place], [place] [address]Performed By: #### 18960-6 ####[facility] LABIA [id number] [place], [place] [address]Enxfxuatfuq (Bld) [#/Vol]3.12 10*3/uLNormal1.45-7.50[facility] on above:Order Comment: Specimen Type: BLOOD SPECIMENOrdering Facility: [facility] Address:[address] [place], [place] [address]Performed By: #### 16008-6 ####[facility] LABCLIA [id number] [place], [place] [address]Vfetxnpkupn/100 WBC (Bld)73.1 %NormalHenry County Hospital on above:Order Comment: Specimen Type: BLOOD SPECIMENOrdering Facility: [facility] Address:[address] [place], [place] [address]Performed By: #### 90872-8 ####[facility] LABIA [id number] [place], [place] [address]Ytkhmmfeo RBC (Bld) [#/Vol] 10*3/uLNormal<0.01[facility] on above:Order Comment: Specimen Type: BLOOD SPECIMENOrdering Facility: [facility] Address:[address] [place], [place] [address]Performed By: #### 56531-2 ####YANELYMIMARITZA [facility] LABCLIA [id number] [place], [place] [address]Cylvomnlx RBC/100 WBC (Bld) [Ratio]0.0 /100 WBCNormal [facility] on above:Order Comment: Specimen Type: BLOOD SPECIMENOrdering Facility: [facility] Address:[address] [place], [place] [address]Performed By: #### 18111-3 ####[facility] LABIA [id number] [place], [place] [address]Drelknrp mean volume (Bld) [Entitic vol]9.1 fLNormal9.0-12.7CMagruder Memorial Hospital on above:Order Comment: Specimen Type: BLOOD SPECIMENOrdering Facility: [facility] Address:[address] [place] [address] Performed By: #### 30709-4 ####[facility] LABCLIA [id number] [place], [place] [address]Kyrqdxudv (Bld) [#/Vol]111 10*3/jTAqf616-336CfldkswnaHenry County Hospital on above:Order Comment: Specimen Type: BLOOD SPECIMENOrdering Facility: [facility] Address:[address] [place], [place] [address]Performed By: #### 41785-9 ####[facility] LABCLIA [id number] [place], [place] [address]TNL (Bld) [#/Vol]4.11 10*6/uLNormal3.90-5.20[facility] on above:Order Comment: Specimen Type: BLOOD SPECIMENOrdering Facility: [facility] Address:[address] [place], [place] [address]Performed By: #### 23029-4 ####[facility] LABIA [id number] [place], [place] [address]CJD (Bld) [#/Vol]4.27 10*3/uLNormal3.70-11.00[facility] on above: Order Comment: Specimen Type: BLOOD SPECIMENOrdering Facility: [facility] Address:[address] [place], [place] [address]Performed By: #### 17218- 8 ####[facility] LABIA [id number] [place], [place] [address]TLYFYTgc 28-36-0825LYYARHZywsf (SP) Office (HEMAS[place]) RAEANN ECKERT ([id number]) 1965 F Date Time Provider Department 02/26/25 10:30 AM JENNIFER DASH During your visit today, we recorded the following information about you: Temperature Pulse Respiration Blood pressure 97.3 degrees 93/minute 16/minute 131/83 Weight 100 kg Jennifer Dash APRN.CNP 02/26/2025 11:49 AM Signed NAME: Raeann Eckert CLINIC NO.: [id number] DATE OF SERVICE:February 26, 2025 (Ekta) Some elements in this clinic note that are critical to medical decision making have been carefully reviewed and included from a prior clinic note dated: February 01, 2025 (Ekta) Referring Provider: Self Referred Additional Clinicians involved in Raeann Eckert's care: DIAGNOSIS: Gliosarcoma CASE SUMMARY / ASSESSMENT: 59 year old woman who presented with mental status changes in November 2024 and was found to have a right partietal lobe lesion with vasogenic edema. 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 She is currently due to start C5 and was released from [place] to return back to her home in [place]. SUMMARIZED PLAN OF CARE: C11 Temodar to start tomorrow or when arrives in mail. continue with increased dose of Temodar 360mg, D1-5 q 28 days RTC in 4 weeks with labs same day prior to C12 Treat through May 2025. Annual CT Chest to monitor pulmonary nodules - October 2025 Mammogram and biopsy COREY - Ordered last visit - patient canceled due to not feel well. AI Assisted A/P: 1. Breast nodule (N63.0) Palpable nodules consistent with patient's history of fibrocystic breast disease; one nodule is concerning and requires further evaluation. - Order mammogram and ultrasound to evaluate breast nodules. - Educated patient on the importance of completing the mammogram and ultrasound for further evaluation. 2. Encounter for antineoplastic chemotherapy (Z51.11) 3. GBM (glioblastoma multiforme) (HCC) (C71.9) Reviewed neurology notes from Dr. Tracie Mcclain dated 02/13/2024; recent brain MRI showed no new growth or changes. - Continue temozolomide 360 mg daily for 5 days, followed by 3 weeks off; to begin cycle 11 when medication arrives. - Encouraged patient to continue walking as recommended by Dr. Mcclain. - Follow-up in [address] Fry. 4. 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 - Encouraged continuation of walking and engagement in enjoyable activities (e.g., coloring, crafts, music) to help manage stress and support cognitive function. - Discussed importance of stress reduction and potential benefits of [place] [facility] arrangements. 6. Pulmonary nodules/lesions, multiple (R91.8) Annual CT chest is scheduled to monitor pulmonary nodules. - Continue annual CT chest surveillance. 7. Gastro-esophageal reflux disease without esophagitis (K21.9) GERD is stable with ongoing omeprazole therapy. - Continue omeprazole 20 mg daily; 90-day supply sent to pharmacy. 8. Constipation, unspecified constipation type (K59.00) Constipation likely related to current medication regimen. - Advised patient to resume Senna-S, starting with 1 tablet in the morning and 1 at night; may increase up to 6 tablets daily as needed. - CASE HISTORY: Reverse Chronological Order 02/10/2025 - MRI Brain: GROSSLY STABLE SMALL RIGHT PARIETAL RESECTION CAVITY, SHOWING CONTINUED GRADUAL INVOLUTION SINCE 04/02/2024, WITH SMALL FOCUS OF STABLE ENHANCEMENT 2. NO PERFUSION ABNORMALITY OUTSIDE OF CONFOUNDING SUSCEPTIBILITY EFFECT 3. NO NEW DISTAL SUSPICIOUS ENHANCEMENT 12/03/2024 - MRI Brain: Essentially stable postoperative appearance of the brain when compared to prior exam from 07/27/2024. No findings to suggest progression. 10/30/2024 - CT Chest: 1. Bilateral subcentimeter pulmonary nodules, as above. Given the patient's history, correlation with follow-up examinations is recommended to assess for stability. few scattered noncalcified pulmonary nodules measuring 3 mm or less are appreciated: For example, on the right, image 47, series 4. On the left, images 23, 47, 88, series 4. 2. No substantial intrathoracic adenopathy is identified. 3. Lower neck, lymph nodes, and mediastinum: 7 mm peripherally calcified left lobe thyroid hypodensity is appreciated. (more content not included)...NormalAultman Orrville Hospitalprehenve metabolic 2000 panelon 03-29-8115Ktjuxfk [Mass/Vol]4.1 g/dLNormal3.9-4.9 [facility] on above:Order Comment: Specimen Type: BLOOD SPECIMENOrdering Facility: [facility] Address:[address] [place], [place] [address]Performed By: #### 65656-9 ####[facility] LABCLIA [id number] [place], [place] [address]BJI [Catalytic activity/Vol]150 U/WWlwx89-702QchwwdwejHenry County Hospital on above:Order Comment: Specimen Type: BLOOD SPECIMENOrdering Facility: [facility] Address:[address] [place], [place] [address]Performed By: #### 41247- 8 ####[facility] LABCLIA [id number] [place], [place] [address]VZQ [Catalytic activity/Vol]17 U/LNormal7-38[facility] on above:Order Comment: Specimen Type: BLOOD SPECIMENOrdering Facility: [facility] Address:[address] [place], [place] [address]Performed By: #### 92690-0 ####[facility] LABCLIA [id number] [place], [place] [address]Qmabp gap [Moles/Vol]18 mmol/LHigh8-15[facility] on above:Order Comment: Specimen Type: BLOOD SPECIMENOrdering Facility: [facility] Address:[address] [place], [place] [address]Performed By: #### 69885- 8 ####[facility] LABCLIA [id number] [facility] [place] [address]UNE [Catalytic activity/Vol]15 U/UBxcywl77-01VbcawwprgHenry County Hospital on above:Order Comment: Specimen Type: BLOOD SPECIMENOrdering Facility: [facility] Address:[address] [place], [place] [address]Performed By: #### 57289-4 ####[facility] LABCLIA [id number] [place], [place] [address]Bqsqxvzkv [Mass/Vol]0.5 mg/dLNormal0.2-1.3CMagruder Memorial Hospital on above:Order Comment: Specimen Type: BLOOD SPECIMENOrdering Facility: [facility] Address:[address] [place], [place] [address]Performed By: #### 36463- 8 ####[facility] LABCLIA [id number] [place], [place] [address]Rgkpofb [Mass/Vol]9.8 mg/dLNormal8.5-10.2CMagruder Memorial Hospital on above:Order Comment: Specimen Type: BLOOD SPECIMENOrdering Facility: [facility] Address:[address] [place], [place] [address]Performed By: #### 29743-4 ####[facility] LABCLIA [id number] [place], [place] [address]Ezmrwhoc [Moles/Vol]100 mmol/L Lgmnoj89-552VhywelcvgHenry County Hospital on above:Order Comment: Specimen Type: BLOOD SPECIMENOrdering Facility: [facility] Address:[address] [place], [place] [address]Performed By: #### 59565-6 ####[facility] LABCLIA [id number] [place] [address] CO2 [Moles/Vol]20 mmol/NPbe70-88JiitxiblnHenry County Hospital on above:Order Comment: Specimen Type: BLOOD SPECIMENOrdering Facility: [facility] Address:[address] [place] [address]Tdhbbxtie By: #### 47437- 8 ####[facility] LABCLIA [id number] [place], [place] [address]Zciuiejhvz [Mass/Vol]0.71 mg/dLNormal0.58-0.96[facility] on above:Order Comment: Specimen Type: BLOOD SPECIMENOrdering Facility: [facility] Address:[address] [place] [address]Hrhthidft By: #### 03595-6 ####[facility] LABCLIA [id number] [place], [place] [address]kEHAji SerPlBld CKD-EPI 324622 mL/min/1.73m???Normal>=60[facility] on above:Order Comment: Specimen Type: BLOOD SPECIMENOrdering Facility: [facility] Address:[address] [place] [address]Kygjjn Comment: Estimated Glomerular Filtration Rate (eGFR) is calculated using the 2020 CKD-EPI creatinine equation. This equation utilizes serum creatinine, sex, and age as parameters. The creatinine assay has traceable calibration to isotope dilution- mass spectrometry. Refer to KDIGO guidelines for clinical interpretation. In patients with unstable renal function, e.g. those with acute kidney injury, the eGFR may not accurately reflect actual GFR.Performed By: #### 59235-4 ####[facility] LABCLIA [id number] [place], [place] [address]Caldgqu [Mass/Vol]136 mg/pEZual40-57JmlqidysqHenry County Hospital on above:Order Comment: Specimen Type: BLOOD SPECIMENOrdering Facility: [facility] Address:[address] [place] [address]Dbhalj Comment: The [place] Diabetes Association (ADA) provides guidance for cutoff values for fasting glucose and random glucose. The ADA defines fasting as no caloric intake for at least 8 hours. Fasting plasma glucose results between 100 to 125 mg/dL indicate increased risk for diabetes (prediab etes). Fasting plasma glucose results greater than or [...] Standards of Medical Care in Diabetes 2016, [place] [employer] Association. Diabetes Care. 2016.39(Suppl 1).Performed By: #### 68955-4 ####[facility] LABCLIA [id number] [place], [place] [address]Hkhftiwea [Moles/Vol]4.4 mmol/LNormal3.7-5.1CMagruder Memorial Hospital on above:Order Comment: Specimen Type: BLOOD SPECIMENOrdering Facility: [facility] Address:[address] [place], [place] [address]Performed By: #### 72085-7 ####[facility] LABIA [id number] [place], [place] [address]Wjwfwqr [Mass/Vol]7.4 g/dLNormal6.3-8.0[facility] on above:Order Comment: Specimen Type: BLOOD SPECIMENOrdering Facility: [facility] Address:[address] [place], [place] [address]Performed By: #### 76093- 8 ####[facility] LABCLIA [id number] [place], [place] [address]Auvrbg [Moles/Vol]138 mmol/HQscsdv517-068UzpgxiskzHenry County Hospital on above:Order Comment: Specimen Type: BLOOD SPECIMENOrdering Facility: [facility] Address:[address] [place], [place] [address]Performed By: #### 19586-7 ####[facility] LABIA [id number] [place], [place] [address]Cwuc nitrogen [Mass/Vol]11 mg/dLNormal7-21[facility] on above:Order Comment: Specimen Type: BLOOD SPECIMENOrdering Facility: [facility] Address:[address] [place], [place] [address]Ktjkztqey By: #### 21779-0 ####YANELYWESTONMARITZA [facility] LABCLIA [id number] [place], [place] [address]DTXMse [id number] (NSCAMN) RAEANN ECKERT ([id number]) 1965 F Date Time Provider Department 02/13/25 TRACIE MCCLAIN NSCAMN During your visit today, we recorded the following information about you: Cydney Rodgers RN 02/13/2025 3:24 PM Signed Scheduling Request - Established Patient Time Frame: 8 weeks Orders: MRI brain with perfusion Provider: Jelena Visit type: Virtual Diagnosis: GBM Sean Loving 02/21/2025 9:03 AM Signed Unable to reach Pt Left detailed voicemail Sent Splice message AND mailed out appt reminder letter Allergies As of Date: 02/13/2025 Noted Allergy Reaction HYDROCODONE 11/22/2023 4 - Hives Comments: HIVES, itching, red rash all over body. OXYCODONE 11/08/2023 4 - Hives 2 - Rash Date Reviewed: 02/12/2025 Reviewed by: Cydney Stout MA - Fully Assessed Reason for Visit: 8 weeks [Other] Prescriptions as of 02/21/2025 - temozolomide (TEMODAR) 180 mg capsule Take 2 capsules (360 mg) by mouth once daily for 5 days. - atenolol (TENORMIN) 50 mg tablet Take 1 tablet by mouth once daily. For 30 days - lisinopril (ZESTRIL) 5 mg tablet Take 1 tablet by mouth once daily. - citalopram (CELEXA) 20 mg tablet Take 1 tablet by mouth once daily - busPIRone (BUSPAR) 10 mg tablet Take 1 tablet by mouth two times a day. - atorvastatin (LIPITOR) 80 mg tablet Take 1 tablet by mouth once daily. - Acetaminophen 500 mg cap Take by mouth. - fluticasone propionate (FLONASE NASAL) Use in the nose. - aspirin, enteric coated (ASPIRIN, ENTERIC COATED) 81 mg EC tablet Take 81 mg by mouth once daily. - ezetimibe (ZETIA) 10 mg tablet Take 10 mg by mouth once daily. - omeprazole (PRILOSEC) 20 mg capsule Take 20 mg by mouth once daily. - ondansetron orally disintegrating (ZOFRAN ODT) 4 mg disintegrating tablet Take 8 mg by mouth every 8 hours as needed. - prochlorperazine (COMPAZINE) 10 mg tablet Take 10 mg by mouth every 8 hours as needed. - senna-docusate (SENNA-S) 8.6-50 mg per tablet Take 1 tablet by mouth two times a day. Problem List As Of Date 02/13/2025 Noted Resolved GBM (glioblastoma multiforme) (HCC) [C71.9] 09/11/2024 Pulmonary nodules/lesions, multiple [R91.8] 09/11/2024 Encounter Status:Closed by SEAN LOVING on 02/21/25[facility] [id number] Visit (NSCAMN) RAEANN ECKERT ([id number]) 1965 F Date Time Provider Department 02/12/25 1:00 PM TRACIE MCCLAIN [facility] During your visit today, we recorded the following information about you: Temperature Pulse Respiration Blood pressure 98.1 degrees 77/minute 18/minute 129/67 Weight 100.6 kg Cydney Stout MA 02/14/2025 9:17 PM Signed Additional intake questions: Has the patient had fever, nausea, vomiting, diarrhea, constipation, fatigue for > 1 week? Yes, constipation (day of last BM this morning) and Provider Notified Does the patient have a decreased appetite? No Does patient want to see a Armhole Presser? No (yes to any of above refer patient to schedulers for dietitian appointment) ) Does patient have any new or increased numbness or tingling of extremities? No Is patient interested in fertility information? No Does patient need any prescription refills? No Does patient have an advanced directive in place? No, Patient referred to Resource Center Electronically Signed By: DELPHINE Delacruz Mark G, MD 02/14/2025 9:17 PM Signed [facility] Established Patient Visit The patient was Dr. Keith Dorsey for neuro-oncologic evaluation. Final recommendations will be communicated back to the requesting physician by way of the shared medical records, or letters to requesting physician via US Mail. Diagnosis Gbm (glioblastoma multiforme) (hcc) Subjective Chief Concern: R Parietal Glioblastoma, IDH Wild-Type, MGMT Hypermethylated, WORKFORCE PLANNING ANALYST WHO Grade 4 History of Present Illness: Raeann Eckert is a right handed 59 year old woman who presents to Neuro-Oncology Clinic for new patient evaluation of right parietal glioblastoma. She presented with mental status changes in November 2023 and was found to have a right parietal lobe lesion with vasogenic edema. Late November 2024, she underwent craniotomy at [facility]. Her history is as follows: 11/22/2023-11/29/2024 - Admitted at [facility] - presented as a direct admission from [facility] for NSGY evaluation for a R parietal lesion with surrounding edema noted on CTH at the OSH 11/22/2023 - MRI Brain/Spine: Brain: Heterogeneous solid cystic mass within the right parietal lobe measuring up to 3.5 cm. Differential considerations include a primary WORKFORCE PLANNING ANALYST malignancy such as a high-grade glioma versus metastatic disease. Associated mild mass effect with slight leftward midline shift. 11/23/2023 - Right Craniotomy - Case #: [id number]: Dr. Raphael Mckee at [facility] A-B. 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 Endothelial proliferation and necrosis are present. Immunohistochemistry performed on Block B2 demonstrate the lesional cells to be POSITIVE for CD10, focal GFAP, focal Olig2, and ATRX (retained, wild-type), while being NEGATIVE for IDH1 (R132H wild-type) and BRAF. P53 is overexpressed. PHH3 highlights mitotic figures up to 30/10 HPF and the Ki-67 proliferation index is up to approximately approximately 40%. Addendum: Negative IDH1 (R132H) immunohistochemistry is considered equivalent to SPG-wako-teel status in this age group, particularly in an ATRX-retained tumor. Additional studies performed: -CD68, CD163, MPO, and lysozyme highlight copious associated histiocytes, but are weak/negative in the neoplastic cells. -Vimentin is diffusely positive confirming antigenicity of the lesional cells. -BRG1 and INI1 are retained. -The remaining markers are negative: SOX10, S100, SMA, pankeratin, inhibin, MOC-31, CD1a, CK5/6, MART1, p63, SF1, SALL4, GATA3, ERG, desmin, FRANCESCA, CK19, CK20, INSM1, Mono-EP4, PAX8, CAM 5.2, CD30, and CK7. 01/12/2024-03/08/2024 - 30 fractions concurrent radiation: per Dr. Alexandr Field at [facility] 01/12/2024-03/08/2024 - Concurrent Temodar per Dr. Rebecca Oh at [facility] - held 02/23-03/01 due to low platelets 05/21/2024-05/25/2024 - C1 adjuvant Temodar 320mg 5 days on (23 days off) Today, Mrs. Eckert presents with her son. After moving from [place] she establishes her care in [place]. She expressed the dseire to receive oncologic care from Dr. Keith Dorsey and also follow up at [facility]. Mrs. Eckert reports persistent fatigue, balance issues, continuous headaches rated 5/10, and occasional speech stumbling. Headaches improve when lying down and she does not take any pain medication for it. She experiences difficulty with daily activities due to fatigue and balance problems, requiring freq (more content not included)...NormalParkview Health BRAIN WO/W IVCONon [id number] BRAIN WO/W IVCON* * *Final Report* * * DATE OF EXAM: Feb 10 2025 3:21PM [facility] 0295 - MRI BRAIN WO/W IVCON [...] orbits and extracranial soft tissues are unremarkable. IMPRESSION: 1. GROSSLY STABLE SMALL RIGHT PARIETAL RESECTION CAVITY, SHOWING CONTINUED GRADUAL INVOLUTION SINCE 04/02/2024, WITH SMALL FOCUS OF STABLE ENHANCEMENT 2. NO PERFUSION ABNORMALITY OUTSIDE OF CONFOUNDING SUSCEPTIBILITY EFFECT 3. 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[facility] Transcribe Date/Time: Feb 10 2025 4:57P Dictated by : GEORGI PEÑA MD This examination was interpreted and the report reviewed and electronically signed by: GEORGI PEÑA MD on Feb 10 2025 5:14PM EST [id number] Children's HospitalNURSING PROGon [id number] PROG HNO ID: [id number] Author: ROSAURA LAFLEUR RN Service: Nursing Author Type: Registered Nurse Type: Nursing Progress Note Filed: 02/10/2025 14:24 Note Text: Radiology Service Progress Note DATE OF SERVICE: February 10, 2025 TIME: 2:10 PM PATIENT WEIGHT: 223 LBS PATIENT IDENTITY VERIFICATION COMPLETED USING TWO (2) STANDARD IDENTIFIERS: Name and Date of confirmed by patient verbally and Name and Date of confirmed by identification band. FALL SCREENING: Has the patient had 2 falls in the last year or 1 fall with injury or currently using an Ambulatory Assistive Device (Walker, Cane, Wheelchair, Crutches, etc.)? No PATIENT GENDER DATA: Assigned female at . status: : No status: NO. ALLERGIES: Reviewed and unchanged CONTRAST ALLERGY: No EXAM: MRI - CONTRAST TYPE: GROUP II IV SITE: Ambulatory: A peripheral IV was started in the Right forearm with a Angio cath: 20 gauge. 2in IV SITE APPEARANCE: Clean,Dry and Intact Inserted under US guidance SIGNATURE: Rosaura Lafleur RN PATIENT NAME: Raeann Eckert DATE: February 10, 2025 TIME: 2:10 [facility] W Auto Differential panel (Bld)on 02-01-2025 Basophils (Bld) [#/Vol]0.03 10*3/uLNormal<0.11CMagruder Memorial Hospital on above:Order Comment: Specimen Type: BLOOD SPECIMENOrdering Facility: [facility] Address:[address] [place] [address] Performed By: #### 55450-1 ####[facility] LABCLIA [id number] [place], [place] [address]Wdleuhqlj/100 WBC (Bld)0.7 % NormalHenry County Hospital on above:Order Comment: Specimen Type: BLOOD SPECIMENOrdering Facility: [facility] Address:[address] [place], [place] [address]Performed By: #### 69328-7 ####[facility] LABCLIA [id number] [place] [address] Differential cell count method Nom (Bld)AutoNormalCWilson Street [facility] Comment on above:Order Comment: Specimen Type: BLOOD SPECIMENOrdering Facility: [facility] Address:[address] [place] [address] Performed By: #### 26739-3 ####[facility] LABCLIA [id number] [place], [place] [address]Aptujhgjwli (Bld) [#/Vol]0.12 10*3/uLNormal<0.46[facility] on above:Order Comment: Specimen Type: BLOOD SPECIMENOrdering Facility: [facility] Address:[address] [place], [place] [address]Performed By: #### 94140-1 ####[facility] LABCLIA [id number] [place], [place] [address]Tdpziugarqk/100 WBC (Bld)2.8 %NormalHenry County Hospital on above:Order Comment: Specimen Type: BLOOD SPECIMENOrdering Facility: [facility] Address:[address] [place], [place] [address]Performed By: #### 58473-5 ####[facility] LABCLIA [id number] [place], [place] [address]Nwthykcuavb distribution width (RBC) [Ratio]13.3 %Tkoruc87.5-15.0[facility] on above: Order Comment: Specimen Type: BLOOD SPECIMENOrdering Facility: [facility] Address:[address] [place], [place] [address]Performed By: #### 43269- 8 ####[facility] LABCLIA [id number] [place], [place] [address]Kswhnfgsem (Bld) [Volume fraction]37.0 %Fhproa29.0-46.0 [facility] on above:Order Comment: Specimen Type: BLOOD SPECIMENOrdering Facility: [facility] Address:[address] [place], [place] [address]Performed By: #### 14560-7 ####[facility] LABCLIA [id number] [place], [place] [address]Zgkwitsinp (Bld) [Mass/Vol]12.7 g/rUDepuhz60.5-15.5CMagruder Memorial Hospital on above: Order Comment: Specimen Type: BLOOD SPECIMENOrdering Facility: [facility] Address:[address] [place], [place] [address]Performed By: #### 41688- 8 ####[facility] LABCLIA [id number] [place], [place] [address]Hpfqucoe granulocytes (Bld) [#/Vol]10*3/uLNormal<0.10 [facility] on above:Order Comment: Specimen Type: BLOOD SPECIMENOrdering Facility: [facility] Address:[address] [place], [place] [address]Performed By: #### 42232-7 ####[facility] LABIA [id number] [place], [place] [address]Hyumjbpk granulocytes/100 WBC (Bld)0.2 %NormalHenry County Hospital on above: Order Comment: Specimen Type: BLOOD SPECIMENOrdering Facility: [facility] Address:[address] [place], [place] [address]Performed By: #### 53870- 8 ####[facility] LABCLIA [id number] [place], [place] [address]Osafpcjnebi (Bld) [#/Vol]0.63 10*3/uLLow1.00-4.00 [facility] on above:Order Comment: Specimen Type: BLOOD SPECIMENOrdering Facility: [facility] Address:[address] [place], [place] [address]Performed By: #### 72307-3 ####[facility] LABIA [id number] [place], [place] [address]Gtvdcvxkavg/100 WBC (Bld)14.8 %NormalHenry County Hospital on above:Order Comment: Specimen Type: BLOOD SPECIMENOrdering Facility: [facility] Address:[address] [place], [place] [address]Performed By: #### 24147-4 ####[facility] LABCLIA [id number] [place], [place] [address]TBK (RBC) [Entitic mass]33.2 jsGjhwij16.0-34.0[facility] on above:Order Comment: Specimen Type: BLOOD SPECIMENOrdering Facility: [facility] Address:[address] [place], [place] [address]Performed By: #### 66535-2 ####[facility] LABIA [id number] [place], [place] [address]FQQZ (RBC) [Mass/Vol]34.3 g/jWWxdvpy80.5-36.0[facility] on above: Order Comment: Specimen Type: BLOOD SPECIMENOrdering Facility: [facility] Address:[address] [place], [place] [address]Performed By: #### 83949- 8 ####[facility] LABIA [id number] [place], [place] [address]SZK (RBC) [Entitic vol]96.6 sGZjngso01.0-100.0[facility] on above:Order Comment: Specimen Type: BLOOD SPECIMENOrdering Facility: [facility] Address:[address] [place], [place] [address]Performed By: #### 47107-3 ####[facility] LABCLIA [id number] [place], [place] [address]Gzndueynd (Bld) [#/Vol]0.42 10*3/uLNormal<0.87[facility] on above:Order Comment: Specimen Type: BLOOD SPECIMENOrdering Facility: [facility] Address:[address] [place], [place] [address]Performed By: #### 30884- 8 ####[facility] LABCLIA [id number] [place], [place] [address]Ealbdhxvi/100 WBC (Bld)9.8 %NormalHenry County Hospital on above:Order Comment: Specimen Type: BLOOD SPECIMENOrdering Facility: [facility] Address:[address] [place], [place] [address]Performed By: #### 57688-6 ####[facility] LABCLIA [id number] [place], [place] [address]Hfolkbpkcqb (Bld) [#/Vol]3.06 10*3/uLNormal1.45-7.50[facility] on above:Order Comment: Specimen Type: BLOOD SPECIMENOrdering Facility: [facility] Address:[address] [place], [place] [address]Performed By: #### 09394-6 ####[facility] LABCLIA [id number] [place], [place] [address]Fjjpdqynuds/100 WBC (Bld)71.7 %NormalHenry County Hospital on above:Order Comment: Specimen Type: BLOOD SPECIMENOrdering Facility: [facility] Address:[address] [place], [place] [address]Performed By: #### 25588-2 ####[facility] LABCLIA [id number] [place], [place] [address]Bnvvmchnh RBC (Bld) [#/Vol] 10*3/uLNormal<0.01[facility] on above:Order Comment: Specimen Type: BLOOD SPECIMENOrdering Facility: [facility] Address:[address] [place], [place] [address]Performed By: #### 10596-2 ####[facility] LABCLIA [id number] [place], [place] [address]Wdtfftnph RBC/100 WBC (Bld) [Ratio]0.0 /100 WBCNormal [facility] on above:Order Comment: Specimen Type: BLOOD SPECIMENOrdering Facility: [facility] Address:[address] [place], [place] [address]Performed By: #### 86037-8 ####[facility] LABIA [id number] [place], [place] [address]Ttzeftbh mean volume (Bld) [Entitic vol]9.2 fLNormal9.0-12.7CMagruder Memorial Hospital on above:Order Comment: Specimen Type: BLOOD SPECIMENOrdering Facility: [facility] Address:[address] [place] [address] Performed By: #### 98504-4 ####[facility] LABCLIA [id number] [place], [place] [address]Qblyldxlw (Bld) [#/Vol]132 10*3/lIQtl743-943FmcpkprzbHenry County Hospital on above:Order Comment: Specimen Type: BLOOD SPECIMENOrdering Facility: [facility] Address:[address] [place], [place] [address]Performed By: #### 74527-3 ####[facility] LABCLIA [id number] [place], [place] [address]VKO (Bld) [#/Vol]3.83 10*6/uLLow3.90-5.20[facility] on above:Order Comment: Specimen Type: BLOOD SPECIMENOrdering Facility: [facility] Address:[address] [place], [place] [address]Performed By: #### 10036-3 ####[facility] LABCLIA [id number] [place], [place] [address]QDG (Bld) [#/Vol]4.27 10*3/uL Normal3.70-11.00[facility] on above:Order Comment: Specimen Type: BLOOD SPECIMENOrdering Facility: [facility] Address:[address] [place], [place] [address]Performed By: #### 53823-0 ####[facility]ENTERMARITZA [facility] LABCLIA [id number] [place], [place] [address]ONGIZZmy 00-07-2798GMSMYOYppxm (SP) Office (HEMASA) RAEANN ECKERT ([id number]) 1965 F Date Time Provider Department 02/01/25 1:30 PM JENNIFER DASHASA During your visit today, we recorded the following information about you: Temperature Pulse Respiration Blood pressure 97.8 degrees 82/minute 16/minute 126/83 Weight Height 101.2 kg 1.631 m Sandy Lock MA 02/01/2025 3:46 PM Signed Pt states that she found 3-4 lumps on her left breast about 4 days ago. DELPHINE Seymour Jaimee, APRN.[employer]OCK[employer] MILLER 02/01/2025 3:46 PM Signed NAME: Raeann Eckert [facility] NO.: [id number] DATE OF SERVICE:February 01, 2025 (Ekta) Some elements in this clinic note that are critical to medical decision making have been carefully reviewed and included from a prior clinic note dated: January 04, 2025 (Jana) Referring Provider: Self Referred Additional Clinicians involved in Raeann Eckert's care: DIAGNOSIS: Gliosarcoma CASE SUMMARY / ASSESSMENT: 59 year old woman who presented with mental status changes in November 2024 and was found to have a right partietal lobe lesion with vasogenic edema. 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 She is currently due to start C5 and was released from [place] to return back to her home in [place]. SUMMARIZED PLAN OF CARE: C10 Temodar to start tomorrow continue with increased dose of Temodar 360mg, D1-5 q 28 days RTC in 4 weeks with labs same day prior to C11 Treat through May 2025. Annual CT Chest to monitor pulmonary nodules - October 2025 AI Assisted A/P: 1. Breast nodule (N63.0) Three palpable nodules in the left breast at the 12 o'clock position, clustered together; one may have ruptured. No recent mammogram; last chest CT was in October. - Order diagnostic mammogram and left breast ultrasound as soon as possible. - Discussed possibility of biopsy depending on imaging results. 2. Encounter for antineoplastic chemotherapy (Z51.11) 3. GBM (glioblastoma multiforme) (HCC) (C71.9) Patient is on cycle 10 of Temodar, to be started tomorrow (days 1-5, 24 days off). Platelet count improved from 113 to 132 over the past month. No new shortness of breath, cough, nausea, vomiting, fever, or chills. Headaches and tingling from scarring persist. - Continue Temodar as scheduled. - Encourage massage therapy for headache and scar-related tingling. - Follow-up in 4 weeks. 4. Malaise and fatigue (R53.81) Patient reports constipation at the end of Temodar cycles; managed with stool softeners. - Continue current constipation management with stool softeners. 5. 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 No findings to suggest progression. 10/30/2024 - CT Chest: 1. Bilateral subcentimeter pulmonary nodules, as above. Given the patient's history, correlation with follow-up examinations is recommended to assess for stability. few scattered noncalcified pulmonary nodules measuring 3 mm or less are appreciated: For example, on the right, image 47, series 4. On the left, images 23, 47, 88, series 4. 2. No substantial intrathoracic adenopathy is identified. 3. Lower neck, lymph nodes, and mediastinum: 7 mm peripherally calcified left lobe thyroid hypodensity is appreciated. 07/27/2024 - CT Chest wo c: 1. Bilateral subcentimeter pulmonary nodules, as above. Given the patient's history, correlation with follow-up examinations is recommended to assess for stability. 2. No substantial intrathoracic adenopathy is identified. 10/10/2024 - start C6 Temodar- 360 mg on D1-5 q 28days 09/12/2024 - Start C5 Temodar - increase to 360mg on D1-5 q 28 days 08/13/2024-08/17/2024 - C4 D1-5 q 28 Temodar 07/27/2024 - MRI Brain: Postsurgical changes of prior right parietal craniotomy and mass resection. Slight interval increase in surrounding hyperintensity with new mildly irregular enhancement along the medial margin of the resection cavity. Findings may relate to evolving posttreatment change and/or recurrent or progressive disease. Recommend continued attention on follow-up. 07/16/2024-07/20/2024 - C3 Temodar 06/19/2024-06/23/2024 - C2 Temodar 05/30/2024 - MRI Brain: Postsurgical changes of prior right parietal mass resection. No findings suggestiv (more content not included)...NormalMercy Health Anderson HospitalCNPNon [id number] (NCCAP) RAEANN ECKERT ([id number]) 1965 F Date Time Provider Department 02/01/25 [facility]ENNIFER DASH [facility] During your visit today, we recorded the following information about you: Cinthya Llamas 02/01/2025 2:24 PM Signed Patient is scheduled for a diagnostic Mammogram and US on 02/07/25 at [facility] in [place]. They are requesting the images prior to the test. Thank you, ZELDA Silver [facility], Katherine Dowell 02/04/2025 10:58 AM Signed Per Jennifer's note from 02/01/25, patient has not had any recent mammograms. Betsey Victoria 02/04/2025 12:15 PM Signed Called and spoke w/ [facility] and notified them of this. Betsey Victoria Allergies As of Date: 02/01/2025 Noted Allergy Reaction HYDROCODONE 11/22/2023 4 - Hives Comments: HIVES, itching, red rash all over body. OXYCODONE 11/08/2023 4 - Hives 2 - Rash Date Reviewed: 02/01/2025 Reviewed by: Jennifer Dash APRN.[employer]OCK[employer] MILLER - Fully Assessed Reason for Visit: Request Outside Medical Records [3687] Prescriptions as of 02/04/2025 - temozolomide (TEMODAR) 180 mg capsule Take 2 capsules (360 mg) by mouth once daily for 5 days. - GINSENG PO Take by mouth. - atenolol (TENORMIN) 50 mg tablet Take 1 tablet by mouth once daily. For 30 days - lisinopril (ZESTRIL) 5 mg tablet Take 1 tablet by mouth once daily. - citalopram (CELEXA) 20 mg tablet Take 1 tablet by mouth once daily - busPIRone (BUSPAR) 10 mg tablet Take 1 tablet by mouth two times a day. - atorvastatin (LIPITOR) 80 mg tablet Take 1 tablet by mouth once daily. - levETIRAcetam (KEPPRA) 500 mg tablet Take 1 tablet by mouth two times a day. - Acetaminophen 500 mg cap Take by mouth. - fluticasone propionate (FLONASE NASAL) Use in the nose. - aspirin, enteric coated (ASPIRIN, ENTERIC COATED) 81 mg EC tablet Take 81 mg by mouth once daily. - ezetimibe (ZETIA) 10 mg tablet Take 10 mg by mouth once daily. - omeprazole (PRILOSEC) 20 mg capsule Take 20 mg by mouth once daily. - ondansetron orally disintegrating (ZOFRAN ODT) 4 mg disintegrating tablet Take 8 mg by mouth every 8 hours as needed. - prochlorperazine (COMPAZINE) 10 mg tablet Take 10 mg by mouth every 8 hours as needed. - senna-docusate (SENNA-S) 8.6-50 mg per tablet Take 1 tablet by mouth two times a day. Problem List As Of Date 02/01/2025 Noted Resolved GBM (glioblastoma multiforme) (HCC) [C71.9] 09/11/2024 Pulmonary nodules/lesions, multiple [R91.8] 09/11/2024 Encounter Status:Closed by KATHERINE PENA on 02/04/25NormalCWilson [address] HospitalComprehensive metabolic 2000 panelon 47-04-2572Jekebeo [Mass/Vol]3.8 g/dLLow3.9-4.9CMagruder Memorial Hospital on above:Order Comment: Specimen Type: BLOOD SPECIMENOrdering Facility: [facility] Address:[address] [place], [place] [address]Performed By: #### 53743- 8 ####[facility] LABCLIA [id number] [facility] [place] [address]AVT [Catalytic activity/Vol]142 U/QQeiw56-857IxidlcodeHenry County Hospital on above:Order Comment: Specimen Type: BLOOD SPECIMENOrdering Facility: [facility] Address:[address] [place], [place] [address]Performed By: #### 99458-9 ####YANELYMIMARITZA [facility] LABCLIA [id number] RAMYA [facility] CENTERMARYCRUZF[place], [place] [address]VLD [Catalytic activity/Vol]17 U/LNormal7-38[facility] on above:Order Comment: Specimen Type: BLOOD SPECIMENOrdering Facility: [facility] Address:[address] [place], [place] [address]Performed By: #### 11285- 8 ####DWAINE [facility] LABCLIA [id number] [facility] [place] [address]Kkumv gap [Moles/Vol]11 mmol/LNormal8-15[facility] on above:Order Comment: Specimen Type: BLOOD SPECIMENOrdering Facility: [facility] Address:[address] [place], [place] [address]Performed By: #### 33387-6 ####YANELYMIMARITZA [facility] LABCLIA [id number] RAMYA [facility] CENTERMARYCRUZF[place], [place] [address]GQP [Catalytic activity/Vol]14 U/DEwpycs81-48PmqzsjaoyHenry County Hospital on above:Order Comment: Specimen Type: BLOOD SPECIMENOrdering Facility: [facility] Address:[address] [place], [place] [address]Performed By: #### 27145-3 ####[facility] LABCLIA [id number] [facility] [place] [address] Bilirubin [Mass/Vol]0.4 mg/dLNormal0.2-1.3CMagruder Memorial Hospital on above:Order Comment: Specimen Type: BLOOD SPECIMENOrdering Facility: [facility] Address:[address] [place], [place] [address]Performed By: #### 59171-2 ####[facility] LABCLIA [id number] RAMYA [facility] CENTERSHABANAMISSION [place], [place] [address]Sccenit [Mass/Vol]9.0 mg/dLNormal8.5-10.2CMagruder Memorial Hospital on above:Order Comment: Specimen Type: BLOOD SPECIMENOrdering Facility: [facility] Address:[address] [place], [place] [address]Performed By: #### 49317-5 ####[facility] LABCLIA [id number] [facility]ITALANA[place], [place] [address]Hfcorfzw [Moles/Vol]102 mmol/FPqyuuy99-444ZtgithhkqHenry County Hospital on above: Order Comment: Specimen Type: BLOOD SPECIMENOrdering Facility: [facility] Address:[address] [place], [place] [address]Performed By: #### 24991- 8 ####[facility] LABCLIA [id number] [facility] [place], [place] [address]EE4 [Moles/Vol]25 mmol/UXqugol86-92QuvitdosyHenry County Hospital on above:Order Comment: Specimen Type: BLOOD SPECIMENOrdering Facility: [facility] Address:[address] [place], [place] [address]Performed By: #### 49902-9 ####[facility] LABCLIA [id number] [facility]ITAL[facility], [place] [address]Hydwjjwmua [Mass/Vol]0.76 mg/dL Normal0.58-0.96[facility] on above:Order Comment: Specimen Type: BLOOD SPECIMENOrdering Facility: [facility] Address:[address] [place], [place] [address]Performed By: #### 51075-8 ####[facility] LABCLIA [id number] [facility] GERARDOVERDE VALLEY MEDICAL CENTERMARYCRUZFORT [place], [place] [address]oMPMju SerPlBld CKD-EPI 033332 mL/min/1.73m???Normal>=60 [facility] on above:Order Comment: Specimen Type: BLOOD SPECIMENOrdering Facility: [facility] Address:[address] [place], [place] [address]Mnjidf Comment: Estimated Glomerular Filtration Rate (eGFR) is calculated using the 2020 CKD-EPI creatinine equation. This equation utilizes serum creatinine, sex, and age as parameters. The creatinine assay has traceable calibration to isotope dilution-mass spectrometry. Refer to KDIGO guidelines for clinical interpretation. In patients with unstable renal function, e.g. those with acute kidney injury, the eGFR may not accurately reflect actual GFR.Performed By: #### 02375-3 ####[facility] LABCLIA [id number] [place], [place] [address]Emuvxbf [Mass/Vol]124 mg/qVLwho77-51DetqjyjhoHenry County Hospital on above:Order Comment: Specimen Type: BLOOD SPECIMENOrdering Facility: [facility] Address:[address] [place] [address]Puvcri Comment: The [place] Diabetes Association (ADA) provides guidance for cutoff values for fast ing glucose and random glucose. The ADA defines fasting as no [...] Standards of Medical Care in Diabetes 2016, [place] Diabetes Association. Diabetes Care. 2016.39(Suppl 1).Performed By: #### 06585-6 ####[facility] LABCLIA [id number] [place], [place] [address]Dcapjtinx [Moles/Vol]4.3 mmol/LNormal3.7-5.1CMagruder Memorial Hospital on above:Order Comment: Specimen Type: BLOOD SPECIMENOrdering Facility: [facility] Address:[address] [place], [place] [address]Ljooyhykc By: #### 21606-6 ####[facility] LABCLIA [id number] [place], [place] [address]Wfrmsyz [Mass/Vol]6.8 g/dLNormal6.3-8.0[facility] on above:Order Comment: Specimen Type: BLOOD SPECIMENOrdering Facility: [facility] Address:[address] [place], [place] [address]Performed By: #### 99015- 8 ####[facility] LABCLIA [id number] [place], [place] [address]Xtskrk [Moles/Vol]138 mmol/XMspqpa048-306SbrekiibiHenry County Hospital on above:Order Comment: Specimen Type: BLOOD SPECIMENOrdering Facility: [facility] Address:[address] [place], [place] [address]Performed By: #### 21206-8 ####[facility] LABCLIA [id number] [place], [place] [address]Lhne nitrogen [Mass/Vol]13 mg/dLNormal7-21[facility] on above:Order Comment: Specimen Type: BLOOD SPECIMENOrdering Facility: [facility] Address:[address] [place], [place] [address]Performed By: #### 43586-8 ####[facility] LABCLIA [id number] [place], [place] [address]ZNS W Auto Differential panel (Bld)on 46-07-1866Azpidkngr (Bld) [#/Vol]0.03 10*3/uLNormal<0.11CMagruder Memorial Hospital on above: Order Comment: Specimen Type: BLOOD SPECIMENOrdering Facility: [facility] Address:[address] [place], [place] [address]Performed By: #### 96547- 8 ####[facility] LABCLIA [id number] [place], [place] [address]Bvouclvab/100 WBC (Bld)0.6 %NormalHenry County Hospital on above:Order Comment: Specimen Type: BLOOD SPECIMENOrdering Facility: [facility] Address:[address] [place], [place] [address]Performed By: #### 84563-6 ####[facility] LABIA [id number] [place], [place] [address]Jfrhuylkaffu cell count method Nom (Bld)AutoNormalClevelGuernsey Memorial Hospital on above:Order Comment: Specimen Type: BLOOD SPECIMENOrdering Facility: [facility] Address:[address] [place], [place] [address]Performed By: #### 60234-3 ####[facility] LABIA [id number] [place], [place] [address]Tiltjhwdivg (Bld) [#/Vol]0.15 10*3/uLNormal<0.46[facility] on above:Order Comment: Specimen Type: BLOOD SPECIMENOrdering Facility: [facility] Address:[address] [place], [place] [address]Performed By: #### 50977-8 ####[facility]IA [id number] [place], [place] [address]Deffwgfaixv/100 WBC (Bld)2.9 %NormalHenry County Hospital on above:Order Comment: Specimen Type: BLOOD SPECIMENOrdering Facility: [facility] Address:[address] [place], [place] [address]Performed By: #### 81285-9 ####[facility] LABIA [id number] [place], [place] [address]Opjloztinns distribution width (RBC) [Ratio]13.5 %Normal 11.5-15.0[facility] on above:Order Comment: Specimen Type: BLOOD SPECIMENOrdering Facility: [facility] Address:[address] [place], [place] [address]Performed By: #### 99560-7 ####[facility] LABIA [id number] [place] [address] Hematocrit (Bld) [Volume fraction]35.8 %Low36.0-46.0[facility] Comment on above:Order Comment: Specimen Type: BLOOD SPECIMENOrdering Facility: [facility] Address:[address] [place] [address] Performed By: #### 81044-3 ####[facility] LABIA [id number] [place], [place] [address]Mfroqxenci (Bld) [Mass/Vol]12.5 g/eMFgkwdh64.5-15.5CMagruder Memorial Hospital on above:Order Comment: Specimen Type: BLOOD SPECIMENOrdering Facility: [facility] Address:[address] [place], [place] [address]Performed By: #### 62295-5 ####[facility] LABIA [id number] [place], [place] [address]Irkojlvf granulocytes (Bld) [#/Vol]10*3/uLNormal<0.10 [facility] on above:Order Comment: Specimen Type: BLOOD SPECIMENOrdering Facility: [facility] Address:[address] [place], [place] [address]Performed By: #### 27701-4 ####[facility] LABIA [id number] [place], [place] [address]Nzmwzdry granulocytes/100 WBC (Bld)0.0 %NormalHenry County Hospital on above: Order Comment: Specimen Type: BLOOD SPECIMENOrdering Facility: [facility] Address:[address] [place], [place] [address]Performed By: #### 03743- 8 ####[facility] LABIA [id number] [place], [place] [address]Ivhkxogwmjx (Bld) [#/Vol]0.83 10*3/uLLow1.00-4.00 [facility] on above:Order Comment: Specimen Type: BLOOD SPECIMENOrdering Facility: [facility] Address:[address] [place], [place] [address]Performed By: #### 99279-9 ####[facility] LABIA [id number] [place], [place] [address]Phgzbcnnnuu/100 WBC (Bld)16.2 %NormalHenry County Hospital on above:Order Comment: Specimen Type: BLOOD SPECIMENOrdering Facility: [facility] Address:[address] [place], [place] [address]Performed By: #### 92148-7 ####[facility] LABCLIA [id number] [place], [place] [address]OMU (RBC) [Entitic mass]33.3 lyDljktp47.0-34.0[facility] on above:Order Comment: Specimen Type: BLOOD SPECIMENOrdering Facility: [facility] Address:[address] [place], [place] [address]Performed By: #### 58055-5 ####[facility] LABCLIA [id number] [place], [place] [address]WNFA (RBC) [Mass/Vol]34.9 g/xOGobcba08.5-36.0[facility] on above: Order Comment: Specimen Type: BLOOD SPECIMENOrdering Facility: [facility] Address:[address] [place], [place] [address]Performed By: #### 83184- 8 ####[facility] LABCLIA [id number] [place], [place] [address]GTX (RBC) [Entitic vol]95.5 lNTnumlj83.0-100.0[facility] on above:Order Comment: Specimen Type: BLOOD SPECIMENOrdering Facility: [facility] Address:[address] [place], [place] [address]Performed By: #### 09666-8 ####[facility] LABIA [id number] [place], [place] [address]Nfxswzoni (Bld) [#/Vol]0.42 10*3/uLNormal<0.87[facility] on above:Order Comment: Specimen Type: BLOOD SPECIMENOrdering Facility: [facility] Address:[address] [place], [place] [address]Performed By: #### 26029- 8 ####[facility] LABCLIA [id number] [place], [place] [address]Zqjslpvtc/100 WBC (Bld)8.2 %NormalHenry County Hospital on above:Order Comment: Specimen Type: BLOOD SPECIMENOrdering Facility: [facility] Address:[address] [place], [place] [address]Performed By: #### 30138-7 ####[facility] LABCLIA [id number] [place], [place] [address]Grtiultzqvv (Bld) [#/Vol]3.69 10*3/uLNormal1.45-7.50[facility] on above:Order Comment: Specimen Type: BLOOD SPECIMENOrdering Facility: [facility] Address:[address] [place], [place] [address]Performed By: #### 41416-7 ####[facility] LABCLIA [id number] [place], [place] [address]Sibosgwrslj/100 WBC (Bld)72.1 %NormalHenry County Hospital on above:Order Comment: Specimen Type: BLOOD SPECIMENOrdering Facility: [facility] Address:[address] [place], [place] [address]Performed By: #### 09658-6 ####[facility] LABIA [id number] [place], [place] [address]Qnppoiivk RBC (Bld) [#/Vol] 10*3/uLNormal<0.01[facility] on above:Order Comment: Specimen Type: BLOOD SPECIMENOrdering Facility: [facility] Address:[address] [place], [place] [address]Performed By: #### 71079-7 ####[facility] LABCLIA [id number] [place], [place] [address]Bfgegbxad RBC/100 WBC (Bld) [Ratio]0.0 /100 WBCNormal [facility] on above:Order Comment: Specimen Type: BLOOD SPECIMENOrdering Facility: [facility] Address:[address] [place], [place] [address]Performed By: #### 89489-2 ####[facility] LABCLIA [id number] [place], [place] [address]Efslifqo mean volume (Bld) [Entitic vol]9.3 fLNormal9.0-12.7CMagruder Memorial Hospital on above:Order Comment: Specimen Type: BLOOD SPECIMENOrdering Facility: [facility] Address:[address] [place] [address] Performed By: #### 42794-4 ####[facility] LABCLIA [id number] [place], [place] [address]Xtbylwmqu (Bld) [#/Vol]113 10*3/zPDjw521-949EvfzwfgntHenry County Hospital on above:Order Comment: Specimen Type: BLOOD SPECIMENOrdering Facility: [facility] Address:[address] [place], [place] [address]Performed By: #### 36557-2 ####[facility] LABCLIA [id number] [place], [place] [address]RYI (Bld) [#/Vol]3.75 10*6/uLLow3.90-5.20[facility] on above:Order Comment: Specimen Type: BLOOD SPECIMENOrdering Facility: [facility] Address:[address] [place], [place] [address]Performed By: #### 34651-0 ####[facility] LABCLIA [id number] [place], [place] [address]RXU (Bld) [#/Vol]5.12 10*3/uL Normal3.70-11.00[facility] on above:Order Comment: Specimen Type: BLOOD SPECIMENOrdering Facility: [facility] Address:[address] [place], [place] [address]Ghzpqqpuy By: #### 97186-8 ####YANELYMIMARITZA [facility] LABCLIA [id number] [place], [place] [address]XLYAMMnp 60-29-5041IHJVQZXbvkh (SP) Office (HEMASA) RAEANN ECKERT ([id number]) 1965 F Date Time Provider Department 01/04/25 3:20 PM KEITH DORSEY During your visit today, we recorded the following information about you: Temperature Pulse Respiration Blood pressure 97.6 degrees 85/minute 16/minute 143/76 Weight Height 101.3 kg 1.631 m Keith Dorsey MD 01/06/2025 6:47 PM Signed NAME: Raeann Eckert CLINIC NO.: [id number] DATE OF SERVICE: January 04, 2025 (Jana) Some elements in this clinic note that are critical to medical decision making have been carefully reviewed and included from a prior clinic note dated: December 07, 2024 (Jana) Referring Provider: Self Referred Additional Clinicians involved in Raeann Eckert'love care: DIAGNOSIS: Gliosarcoma CASE SUMMARY / ASSESSMENT: 59 year old woman who presented with mental status changes in November 2024 and was found to have a right partietal lobe lesion with vasogenic edema. 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 She is currently due to start C5 and was released from [place] to return back to her home in [place]. SUMMARIZED PLAN OF CARE: C9 Temodar to start tomorrow continue with increased dose of Temodar 360mg, D1-5 q 28 days RTC in 4 weeks with labs same day prior to C10 Treat through May 2025. Annual CT Chest to monitor pulmonary nodules - October 2025 AI Assisted A/P: 1. GBM (glioblastoma multiforme) (HCC) (C71.9) 2. Encounter for antineoplastic chemotherapy (Z51.11) MRI from end of November showed favorable post-operative changes. WBC count is within acceptable range for chemotherapy; platelets are trending lower but remain above threshold for treatment delay. Patient is not anemic and chemistries are stable. Patient is currently on cycle 9 of Temodar. - Continue Temodar as planned; refill sent. - Advised that if platelets drop below 90, treatment may be delayed by an extra week. - Discussed that after 12 cycles, management will transition to surveillance with periodic scans. 3. Dry skin (L85.3) Likely related to ongoing chemotherapy. - Recommended Eucerin cream or avocado oil for skin hydration. 4. Allergic rhinitis, unspecified seasonality, unspecified trigger (J30.9) Patient reports headaches and nasal congestion, likely related to allergic rhinitis. - Advised use of antihistamines as needed. - Recommended Afrin nasal spray for up to 2 consecutive days to relieve congestion; cautioned against use beyond 2 days to avoid rebound congestion. - CASE HISTORY: Reverse Chronological Order 12/03/2024 - MRI Brain: Essentially stable postoperative appearance of the brain when compared to prior exam from 07/27/2024. No findings to suggest progression. 10/30/2024 - CT Chest: 1. Bilateral subcentimeter pulmonary nodules, as above. Given the patient's history, correlation with follow-up examinations is recommended to assess for stability. few scattered noncalcified pulmonary nodules measuring 3 mm or less are appreciated: For example, on the right, image 47, series 4. On the left, images 23, 47, 88, series 4. 2. No substantial intrathoracic adenopathy is identified. 3. Lower neck, lymph nodes, and mediastinum: 7 mm peripherally calcified left lobe thyroid hypodensity is appreciated. 07/27/2024 - CT Chest wo c: 1. Bilateral subcentimeter pulmonary nodules, as above. Given the patient's history, correlation with follow-up examinations is recommended to assess for stability. 2. No substantial intrathoracic adenopathy is identified. 10/10/2024 - start C6 Temodar- 360 mg on D1-5 q 28days 09/12/2024 - Start C5 Temodar - increase to 360mg on D1-5 q 28 days 08/13/2024-08/17/2024 - C4 D1-5 q 28 Temodar 07/27/2024 - MRI Brain: Postsurgical changes of prior right parietal craniotomy and mass resection. Slight interval increase in surrounding hyperintensity with new mildly irregular enhancement along the medial margin of the resection cavity. Findings may relate to evolving posttreatment change and/or recurrent or progressive disease. Recommend continued attention on follow-up. 07/16/2024-07/20/2024 - C3 Temodar 06/19/2024-06/23/2024 - C2 Temodar 05/30/2024 - MRI Brain: Postsurgical changes of prior right parietal mass resection. No findings suggestive of recurrent or progressive disease. Mild increase in hyperintensity along the anterior and superior margins of the rese (more content not included)...NormalMercy Health Anderson HospitalComprehensive metabolic 2000 panelon 45-59-9003Tvhigbx [Mass/Vol]3.9 g/dLNormal3.9-4.9C[address] [facility] Comment on above:Order Comment: Specimen Type: BLOOD SPECIMENOrdering Facility: [facility] Address:[address] [place] [address] [place] [id number] Performed By: #### 73229-6 ####[facility] LABCLIA [id number] [facility] [place], [place] [address]VHU [Catalytic activity/Vol]146 U/OFlsp25-005EjwslhljdHenry County Hospital on above:Order Comment: Specimen Type: BLOOD SPECIMENOrdering Facility: [facility] Address:[address] [place], [place] [address]Performed By: #### 32116-6 ####[facility] LABCLIA [id number] [facility] DANISHANAVERDE VALLEY [place] [address] ALT [Catalytic activity/Vol]14 U/LNormal7-38[facility] on above:Order Comment: Specimen Type: BLOOD SPECIMENOrdering Facility: [facility] Address:[address] [place], [place] [address]Performed By: #### 26823-0 ####[facility] LABCLIA [id number] [facility] DANISH CARRILLOVERDE VALLEY MEDICAL CENTERSHABANAMISSION [place], [place] [address]Svnxq gap [Moles/Vol]10 mmol/LNormal8-15[facility] on above:Order Comment: Specimen Type: BLOOD SPECIMENOrdering Facility: [facility] Address:[address] [place], [place] [address]Performed By: #### 32876-5 ####[facility] LABCLIA [id number] [facility] DAVVERDE VALLEY MEDICAL CENTERMARYCRUZFORT [place], [place] [address]GSL [Catalytic activity/Vol]12 U/NSim11-92WfralpmrjHenry County Hospital on above:Order Comment: Specimen Type: BLOOD SPECIMENOrdering Facility: [facility] Address:[address] [place], [place] [address]Performed By: #### 11668-8 ####[facility] LABIA [id number] [place] [address] Bilirubin [Mass/Vol]0.4 mg/dLNormal0.2-1.3CMagruder Memorial Hospital on above:Order Comment: Specimen Type: BLOOD SPECIMENOrdering Facility: [facility] Address:[address] [place], [place] [address]Performed By: #### 96830-7 ####[facility] LABCLIA [id number] [place], [place] [address]Tlpwwnn [Mass/Vol]9.2 mg/dLNormal8.5-10.2CMagruder Memorial Hospital on above:Order Comment: Specimen Type: BLOOD SPECIMENOrdering Facility: [facility] Address:[address] [place], [place] [address]Performed By: #### 62743-6 ####[facility] LABCLIA [id number] [place], [place] [address]Hoyfhsem [Moles/Vol]99 mmol/PEnqokl74-963BdrsztfjjHenry County Hospital on above:Order Comment: Specimen Type: BLOOD SPECIMENOrdering Facility: [facility] Address:[address] [place], [place] [address]Performed By: #### 50613- 8 ####[facility] LABCLIA [id number] [facility] [place], [place] [address]QY5 [Moles/Vol]28 mmol/RCcfobs75-89YyipzyczqHenry County Hospital on above:Order Comment: Specimen Type: BLOOD SPECIMENOrdering Facility: [facility] Address:[address] [place], [place] [address]Performed By: #### 84239-4 ####[facility] LABCLIA [id number] [place], [place] [address]Xktdpfvaeo [Mass/Vol]0.73 mg/dL Normal0.58-0.96[facility] on above:Order Comment: Specimen Type: BLOOD SPECIMENOrdering Facility: [facility] Address:[address] [place], [place] [address]Performed By: #### 35932-7 ####[facility] LABCLIA [id number] [facility] [place], [place] [address]tOLSzu SerPlBld CKD-EPI 363065 mL/min/1.73m???Normal>=60 [facility] on above:Order Comment: Specimen Type: BLOOD SPECIMENOrdering Facility: [facility] Address:[address] [place], [place] [address]Sdwyhi Comment: Estimated Glomerular Filtration Rate (eGFR) is calculated using the 2020 CKD-EPI creatinine equation. This equation utilizes serum creatinine, sex, and age as parameters. The creatinine assay has traceable calibration to isotope dilution-mass spectrometry. Refer to KDIGO guidelines for clinical interpretation. In patients with unstable renal function, e.g. those with acute kidney injury, the eGFR may not accurately reflect actual GFR.Performed By: #### 69651-6 ####[facility] LABCLIA [id number] [place], [place] [address]Tevqdyy [Mass/Vol]117 mg/uVSnpm48-63ZkbuuwwtxHenry County Hospital on above:Order Comment: Specimen Type: BLOOD SPECIMENOrdering Facility: [facility] Address:[address] [place] [address]Ljlzru Comment: The [place] Diabetes Association (ADA) provides guidance for cutoff values for fast ing glucose and random glucose. The ADA defines fasting as no [...] Standards of Medical Care in Diabetes 2016, [place] Diabetes Association. Diabetes Care. 2016.39(Suppl 1).Performed By: #### 18846-1 ####[facility] LABCLIA [id number] [place], [place] [address]Seatsnygl [Moles/Vol]4.3 mmol/LNormal3.7-5.1CMagruder Memorial Hospital on above:Order Comment: Specimen Type: BLOOD SPECIMENOrdering Facility: [facility] Address:[address] [place], [place] [address]Iyilquwvu By: #### 48455-2 ####[facility] LABCLIA [id number] [place], [place] [address]Vkbvtya [Mass/Vol]7.0 g/dLNormal6.3-8.0[facility] on above:Order Comment: Specimen Type: BLOOD SPECIMENOrdering Facility: [facility] Address:[address] [place], [place] [address]Performed By: #### 09958- 8 ####[facility] LABCLIA [id number] [place], [place] [address]Cmnzpf [Moles/Vol]137 mmol/IWcymgx937-141UpuvghraqHenry County Hospital on above:Order Comment: Specimen Type: BLOOD SPECIMENOrdering Facility: [facility] Address:[address] [place], [place] [address]Performed By: #### 77316-7 ####[facility] LABCLIA [id number] [place], [place] [address]Vmoi nitrogen [Mass/Vol]12 mg/dLNormal7-21[facility] on above:Order Comment: Specimen Type: BLOOD SPECIMENOrdering Facility: [facility] Address:[address] [place], [place] [address]Performed By: #### 06201-8 ####[facility] LABCLIA [id number] [place], [place] [address]ECN W Auto Differential panel (Bld)on 89-63-6169Lfvyttfjb (Bld) [#/Vol]10*3/uLNormal<0.11CMagruder Memorial Hospital on above:Order Comment: Specimen Type: BLOOD SPECIMENOrdering Facility: [facility] Address:[address] [place], [place] [address]Performed By: #### 53051- 8 ####[facility] LABCLIA [id number] [place], [place] [address]Mdrnwiisp/100 WBC (Bld)0.4 %NormalHenry County Hospital on above:Order Comment: Specimen Type: BLOOD SPECIMENOrdering Facility: [facility] Address:[address] [place], [place] [address]Performed By: #### 39590-1 ####[facility] LABIA [id number] [place], [place] [address]Wgieuyfakcze cell count method Nom (Bld)AutoNormalClevelGuernsey Memorial Hospital on above:Order Comment: Specimen Type: BLOOD SPECIMENOrdering Facility: [facility] Address:[address] [place], [place] [address]Performed By: #### 08571-0 ####[facility] LABCLIA [id number] [place], [place] [address]Rlzpdeegvys (Bld) [#/Vol]0.11 10*3/uLNormal<0.46[facility] on above:Order Comment: Specimen Type: BLOOD SPECIMENOrdering Facility: [facility] Address:[address] [place], [place] [address]Performed By: #### 77941-4 ####[facility] LABIA [id number] [place], [place] [address]Kuzdhlnzqrr/100 WBC (Bld)2.4 %NormalHenry County Hospital on above:Order Comment: Specimen Type: BLOOD SPECIMENOrdering Facility: [facility] Address:[address] [place], [place] [address]Performed By: #### 56212-7 ####[facility] LABCLIA [id number] [place], [place] [address]Jospmmccfxs distribution width (RBC) [Ratio]13.7 %Normal 11.5-15.0[facility] on above:Order Comment: Specimen Type: BLOOD SPECIMENOrdering Facility: [facility] Address:[address] [place], [place] [address]Performed By: #### 79237-3 ####[facility] LABIA [id number] [place] [address] Hematocrit (Bld) [Volume fraction]36.5 %Udkqaz69.0-46.0[facility] on above:Order Comment: Specimen Type: BLOOD SPECIMENOrdering Facility: [facility] Address:[address] [place], [place] [address]Performed By: #### 51219-5 ####[facility] LABIA [id number] [place] [address]Tqrrenqhev (Bld) [Mass/Vol]12.3 g/yFBeggfl78.5-15.5CMagruder Memorial Hospital on above:Order Comment: Specimen Type: BLOOD SPECIMENOrdering Facility: [facility] Address:[address] [place], [place] [address]Performed By: #### 70254-7 ####[facility] LABIA [id number] [place], [place] [address]Srseglqb granulocytes (Bld) [#/Vol]10*3/uLNormal<0.10 [facility] on above:Order Comment: Specimen Type: BLOOD SPECIMENOrdering Facility: [facility] Address:[address] [place], [place] [address]Performed By: #### 97077-8 ####[facility] LABIA [id number] [place], [place] [address]Azyepepz granulocytes/100 WBC (Bld)0.2 %NormalHenry County Hospital on above: Order Comment: Specimen Type: BLOOD SPECIMENOrdering Facility: [facility] Address:[address] [place], [place] [address]Performed By: #### 93103- 8 ####[facility] LABIA [id number] [place], [place] [address]Yflccqokucl (Bld) [#/Vol]0.76 10*3/uLLow1.00-4.00 [facility] on above:Order Comment: Specimen Type: BLOOD SPECIMENOrdering Facility: [facility] Address:[address] [place], [place] [address]Performed By: #### 53229-2 ####[facility] LABIA [id number] [place], [place] [address]Sltontgrxcl/100 WBC (Bld)16.7 %NormalHenry County Hospital on above:Order Comment: Specimen Type: BLOOD SPECIMENOrdering Facility: [facility] Address:[address] [place], [place] [address]Performed By: #### 87047-7 ####[facility] LABCLIA [id number] [place], [place] [address]ISY (RBC) [Entitic mass]32.5 biNnequa04.0-34.0[facility] on above:Order Comment: Specimen Type: BLOOD SPECIMENOrdering Facility: [facility] Address:[address] [place], [place] [address]Performed By: #### 17610-5 ####[facility] LABCLIA [id number] [place], [place] [address]UEQA (RBC) [Mass/Vol]33.7 g/nRDblqwf45.5-36.0[facility] on above: Order Comment: Specimen Type: BLOOD SPECIMENOrdering Facility: [facility] Address:[address] [place], [place] [address]Performed By: #### 34199- 8 ####[facility] LABCLIA [id number] [place], [place] [address]NWE (RBC) [Entitic vol]96.3 vIMvpble20.0-100.0[facility] on above:Order Comment: Specimen Type: BLOOD SPECIMENOrdering Facility: [facility] Address:[address] [place], [place] [address]Performed By: #### 17316-4 ####[facility] LABCLIA [id number] [place], [place] [address]Llqgvqvfp (Bld) [#/Vol]0.37 10*3/uLNormal<0.87[facility] on above:Order Comment: Specimen Type: BLOOD SPECIMENOrdering Facility: [facility] Address:[address] [place], [place] [address]Performed By: #### 11571- 8 ####[facility] LABCLIA [id number] [place], [place] [address]Vdpinfbtp/100 WBC (Bld)8.1 %NormalHenry County Hospital on above:Order Comment: Specimen Type: BLOOD SPECIMENOrdering Facility: [facility] Address:[address] [place], [place] [address]Performed By: #### 96748-1 ####[facility] LABIA [id number] [place], [place] [address]Gmobnorcheb (Bld) [#/Vol]3.29 10*3/uLNormal1.45-7.50[facility] on above:Order Comment: Specimen Type: BLOOD SPECIMENOrdering Facility: [facility] Address:[address] [place], [place] [address]Performed By: #### 69361-6 ####[facility] LABIA [id number] [place], [place] [address]Jxxgxscnccp/100 WBC (Bld)72.2 %NormalHenry County Hospital on above:Order Comment: Specimen Type: BLOOD SPECIMENOrdering Facility: [facility] Address:[address] [place], [place] [address]Performed By: #### 50618-9 ####[facility] LABIA [id number] [place], [place] [address]Mrcbaafqp RBC (Bld) [#/Vol] 10*3/uLNormal<0.01[facility] on above:Order Comment: Specimen Type: BLOOD SPECIMENOrdering Facility: [facility] Address:[address] [place], [place] [address]Performed By: #### 83950-9 ####[facility] LABCLIA [id number] [place], [place] [address]Ypoieakql RBC/100 WBC (Bld) [Ratio]0.0 /100 WBCNormal [facility] on above:Order Comment: Specimen Type: BLOOD SPECIMENOrdering Facility: [facility] Address:[address] [place], [place] [address]Performed By: #### 05667-1 ####[facility] LABCLIA [id number] [place], [place] [address]Gqbbndbr mean volume (Bld) [Entitic vol]8.4 fLLow9.0-12.7CMagruder Memorial Hospital on above:Order Comment: Specimen Type: BLOOD SPECIMENOrdering Facility: [facility] Address:[address] [place], [place] [address]Performed By: #### 98246-0 ####[facility] LABCLIA [id number] [place], [place] [address]Isdrqnuip (Bld) [#/Vol]142 10*3/rRVxp352-527DydaooyvvHenry County Hospital on above:Order Comment: Specimen Type: BLOOD SPECIMENOrdering Facility: [facility] Address:[address] [place], [place] [address]Performed By: #### 66009-2 ####[facility] LABCLIA [id number] [place], [place] [address]HKV (Bld) [#/Vol]3.79 10*6/uLLow3.90-5.20[facility] on above:Order Comment: Specimen Type: BLOOD SPECIMENOrdering Facility: [facility] Address:[address] [place], [place] [address]Performed By: #### 15416- 8 ####[facility] LABCLIA [id number] [place], [place] [address]KOF (Bld) [#/Vol]4.56 10*3/uLNormal3.70-11.00[facility] on above:Order Comment: Specimen Type: BLOOD SPECIMENOrdering Facility: [facility] Address:[address] [place], [place] [address]Kygtcmjhg By: #### 92361-4 ####[facility] LABCLIA [id number] [place], [place] [address]WMFCEWed [id number] (SP) Office (HEMASA) RAEANN ECKERT ([id number]) 1965 F Date Time Provider Department 12/07/24 9:20 AM KEITH DORSEY During your visit today, we recorded the following information about you: Temperature Pulse Respiration Blood pressure 97.1 degrees 81/minute 16/minute 124/82 Weight 101.8 kg Keith Dorsey MD 12/11/2024 4:43 PM Signed NAME: Raeann Eckert CLINIC NO.: [id number] DATE OF SERVICE: December 07, 2024 (Jana) Some elements in this clinic note that are critical to medical decision making have been carefully reviewed and included from a prior clinic note dated: November 06, 2024 (Jana) Referring Provider: Self Referred Additional Clinicians involved in Raeann Echeverria care: DIAGNOSIS: Gliosarcoma CASE SUMMARY / ASSESSMENT: 59 year old woman who presented with mental status changes in November 2024 and was found to have a right partietal lobe lesion with vasogenic edema. 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 She is currently due to start C5 and was released from [place] to return back to her home in [place]. SUMMARIZED PLAN OF CARE: C8 Temodar to start tomorrow continue with increased dose of Temodar 360mg, D1-5 q 28 days RTC in 4 weeks with labs same day prior to C9 Treat through May 2025. Annual CT Chest to monitor pulmonary nodules - October 2025 AI Assisted A/P: 1. GBM (glioblastoma multiforme) (HCC) (C71.9) Patient is under the care of Dr. Acosta at the brain tumor clinic. Recent CT scan of the brain showed no new or worsening disease. Patient reports increased confusion and spatial disorientation, which may be related to tumor location and scarring as discussed by Dr. Acosta. - Continue monitoring with MRI every 2 months; next MRI scheduled for February 10. - Follow-up with Dr. Acosta on February 12. 2. Hepatic steatosis (K76.0) Incidental finding on recent CT scan of the chest and upper abdomen. No other concerning findings noted. - Educated patient on the importance of weight and dietary management to prevent progression to cirrhosis and liver failure. 3. Presence of other specified functional implants (Z96.89) 4. Encounter for antineoplastic chemotherapy (Z51.11) Patient is undergoing chemotherapy with Temodar. Recent blood counts are within normal limits, indicating safety to proceed with the next cycle. - Begin Temodar treatment tomorrow for 5 days. - Scheduled for next chemotherapy cycle (Cycle 9) in 4 weeks. 5. Encounter for palliative care (Z51.5) Patient experiencing increased confusion and spatial disorientation, leading to safety concerns at home. Discussed potential need for additional support. - Discussed options for hiring a private nurse or asset protection professional. - Referred to a social worker delinquency prevention for assistance in coordinating additional support services. - CASE HISTORY: Reverse Chronological Order 12/03/2024 - MRI Brain: Essentially stable postoperative appearance of the brain when compared to prior exam from 07/27/2024. No findings to suggest progression. 10/30/2024 - CT Chest: 1. Bilateral subcentimeter pulmonary nodules, as above. Given the patient's history, correlation with follow-up examinations is recommended to assess for stability. few scattered noncalcified pulmonary nodules measuring 3 mm or less are appreciated: For example, on the right, image 47, series 4. On the left, images 23, 47, 88, series 4. 2. No substantial intrathoracic adenopathy is identified. 3. Lower neck, lymph nodes, and mediastinum: 7 mm peripherally calcified left lobe thyroid hypodensity is appreciated. 07/27/2024 - CT Chest wo c: 1. Bilateral subcentimeter pulmonary nodules, as above. Given the patient's history, correlation with follow-up examinations is recommended to assess for stability. 2. No substantial intrathoracic adenopathy is identified. 10/10/2024 - start C6 Temodar- 360 mg on D1-5 q 28days 09/12/2024 - Start C5 Temodar - increase to 360mg on D1-5 q 28 days 08/13/2024-08/17/2024 - C4 D1-5 q 28 Temodar 07/27/2024 - MRI Brain: Postsurgical changes of prior right parietal craniotomy and mass resection. Slight interval increase in surrounding hyperintensity with new mildly irregular enhancement along the medial margin of the resection cavity. Findings may relate to evolving posttreatment change and/or recurrent or progressive disease. Recommend continued attention on (more content not included)...Normal [facility] HospitalCNPNon 50-09-0210SWKMXxxjafddd (HEMASA) RAEANN ECKERT ([id number]) 1965 F Date Time Provider Department 12/07/24 EMMA SLATER During your visit today, we recorded the following information about you: Emma Slater LSW 12/07/2024 3:10 PM Signed SOCIAL WORK FOLLOW UP NOTE: [facility] Date of service:12/07/24 PLAN: Continue follow up as needed F/U APPOINTMENT: PRN Assigned AYAKA listed in Care Team tab: Yes Referral received to contact Patient's son Zain to discuss terminal operations supervisor care needs. AYAKA called and left Zain a VM. Awaiting a call back. KWAME Navarro-Love Allergies As of Date: 12/07/2024 Noted Allergy Reaction HYDROCODONE 11/22/2023 4 - Hives Comments: HIVES, itching, red rash all over body. OXYCODONE 11/08/2023 4 - Hives 2 - Rash Date Reviewed: 12/07/2024 Reviewed by: Angella Miller MA - Fully Assessed Prescriptions as of 12/07/2024 - GINSENG PO Take by mouth. - atenolol (TENORMIN) 50 mg tablet Take 1 tablet by mouth once daily. For 30 days - temozolomide (TEMODAR) 180 mg capsule Take 2 capsules (360 mg) by mouth once daily for 5 days. - iv contrast (will be provided with radiology test) MRI Brain Inject, intravenously, once for 1 dose.No IV access, insert saline lock prior to beginning of sedation, infusion, injection of imaging exam.Discontinue saline lock post exam. If Pt. has a central line or IVAD, may access for administration according to line specific nursing protocol.Once exam is complete flush line and de-access according to line specific nursing protocol in the MR contrast administration guidelines link - lisinopril (ZESTRIL) 5 mg tablet Take 1 tablet by mouth once daily. - citalopram (CELEXA) 20 mg tablet Take 1 tablet by mouth once daily - busPIRone (BUSPAR) 10 mg tablet Take 1 tablet by mouth two times a day. - atorvastatin (LIPITOR) 80 mg tablet Take 1 tablet by mouth once daily. - levETIRAcetam (KEPPRA) 500 mg tablet Take 1 tablet by mouth two times a day. - Acetaminophen 500 mg cap Take by mouth. - fluticasone propionate (FLONASE NASAL) Use in the nose. - aspirin, enteric coated (ASPIRIN, ENTERIC COATED) 81 mg EC tablet Take 81 mg by mouth once daily. - ezetimibe (ZETIA) 10 mg tablet Take 10 mg by mouth once daily. - omeprazole (PRILOSEC) 20 mg capsule Take 20 mg by mouth once daily. - ondansetron orally disintegrating (ZOFRAN ODT) 4 mg disintegrating tablet Take 8 mg by mouth every 8 hours as needed. - prochlorperazine (COMPAZINE) 10 mg tablet Take 10 mg by mouth every 8 hours as needed. - senna-docusate (SENNA-S) 8.6-50 mg per tablet Take 1 tablet by mouth two times a day. Problem List As Of Date 12/07/2024 Noted Resolved GBM (glioblastoma multiforme) (HCC) [C71.9] 09/11/2024 Pulmonary nodules/lesions, multiple [R91.8] 09/11/2024 Encounter Status:Closed by EMMA SLATER on 12/07/24NormalCNationwide [facility] metabolic 2000 panelon 35-94-9520Pghavbl [Mass/Vol]3.7 g/dLLow 3.9-4.9CMagruder Memorial Hospital on above:Order Comment: Specimen Type: BLOOD SPECIMENOrdering Facility: [facility] Address:[address] [place], [place] [address]Nnlzcmywu By: #### 69302-8 ####[facility] LABCLIA [id number] [place], [place] [address]CMO [Catalytic activity/Vol]147 U/FUlbs49-583DwjixxbqcHenry County Hospital on above:Order Comment: Specimen Type: BLOOD SPECIMENOrdering Facility: [facility] Address:[address] [place], [place] [address]Dryofungk By: #### 73707-0 ####[facility] LABCLIA [id number] [place], [place] [address]NIV [Catalytic activity/Vol]14 U/LNormal7-38[facility] on above:Order Comment: Specimen Type: BLOOD SPECIMENOrdering Facility: [facility] Address:[address] [place], [place] [address]Performed By: #### 22661-6 ####[facility] LABCLIA [id number] [place] CENTERMARYCRUZF[place], [place] [address]Jrdzk gap [Moles/Vol]9 mmol/LNormal8-15[facility] on above:Order Comment: Specimen Type: BLOOD SPECIMENOrdering Facility: [facility] Address:[address] [place], [place] [address]Performed By: #### 36728- 8 ####[facility] LABCLIA [id number] [facility] [place], [place] [address]XUX [Catalytic activity/Vol]14 U/KHpemop82-03KgzeltwdtHenry County Hospital on above:Order Comment: Specimen Type: BLOOD SPECIMENOrdering Facility: [facility] Address:[address] [place], [place] [address]Performed By: #### 53668-4 ####[facility] LABCLIA [id number] [place], [place] [address]Sytkfljtc [Mass/Vol]0.3 mg/dLNormal0.2-1.3CMagruder Memorial Hospital on above:Order Comment: Specimen Type: BLOOD SPECIMENOrdering Facility: [facility] Address:[address] [place], [place] [address]Performed By: #### 00696- 8 ####[facility] LABCLIA [id number] [place] DANISH CARRILLOVER[facility] CENTERMARYCRUZF[place], [place] [address]Mqacduy [Mass/Vol]9.2 mg/dLNormal8.5-10.2CMagruder Memorial Hospital on above:Order Comment: Specimen Type: BLOOD SPECIMENOrdering Facility: [facility] Address:[address] [place], [place] [address]Performed By: #### 51641-6 ####[facility] LABCLIA [id number] [facility] DANISHANAVERDE VALLEY MEDICAL CENTERMARYCRUZF[place], [place] [address]Yltgqcli [Moles/Vol]102 mmol/L Wsurkn39-953TsaayvvvoHenry County Hospital on above:Order Comment: Specimen Type: BLOOD SPECIMENOrdering Facility: [facility] Address:[address] [place], [place] [address]Performed By: #### 47343-2 ####[facility] LABCLIA [id number] [place] [address] CO2 [Moles/Vol]28 mmol/VJdcizg41-76KemjhlivlHenry County Hospital on above: Order Comment: Specimen Type: BLOOD SPECIMENOrdering Facility: [facility] Address:[address] [place], [place] [address]Performed By: #### 48801- 8 ####[facility] LABCLIA [id number] [place], [place] [address]Xxgynnjolc [Mass/Vol]0.74 mg/dLNormal0.58-0.96[facility] on above:Order Comment: Specimen Type: BLOOD SPECIMENOrdering Facility: [facility] Address:[address] [place], [place] [address]Performed By: #### 28295-9 ####[facility] LABCLIA [id number] [place], [place] [address]tXLVxs SerPlBld CKD-EPI 420747 mL/min/1.73m???Normal>=60[facility] on above:Order Comment: Specimen Type: BLOOD SPECIMENOrdering Facility: [facility] Address:[address] [place], [place] [address]Result Comment: Estimated Glomerular Filtration Rate (eGFR) is calculated using the 2020 CKD-EPI creatinine equation. This equation utilizes serum creatinine, sex, and age as parameters. The creatinine assay has traceable calibration to isotope dilution- mass spectrometry. Refer to KDIGO guidelines for clinical interpretation. In patients with unstable renal function, e.g. those with acute kidney injury, the eGFR may not accurately reflect actual GFR.Performed By: #### 41111-3 ####[facility] LABCLIA [id number] [place], [place] [address]Amdmbxk [Mass/Vol]124 mg/tQFpeb56-54NbjtavfjnHenry County Hospital on above:Order Comment: Specimen Type: BLOOD SPECIMENOrdering Facility: [facility] Address:[address] [place], [place] [address]Result Comment: The [place] Diabetes Association (ADA) provides guidance for cutoff values for fasting glucose and random glucose. The ADA defines fasting as no caloric intake for at least 8 hours. Fasting plasma glucose results between 100 to 125 mg/dL indicate increased risk for diabetes (prediab etes). Fasting plasma glucose results greater than or [...] Standards of Medical Care in Diabetes 2016, [place] [employer] Association. Diabetes Care. 2016.39(Suppl 1).Performed By: #### 06840-2 ####[facility] LABCLIA [id number] [place], [place] [address]Xiopoadvu [Moles/Vol]4.4 mmol/LNormal3.7-5.1CMagruder Memorial Hospital on above:Order Comment: Specimen Type: BLOOD SPECIMENOrdering Facility: [facility] Address:[address] [place], [place] [address]Performed By: #### 70184-1 ####[facility] LABCLIA [id number] [place], [place] [address]Hypeutt [Mass/Vol]6.8 g/dLNormal6.3-8.0[facility] on above:Order Comment: Specimen Type: BLOOD SPECIMENOrdering Facility: [facility] Address:[address] [place], [place] [address]Performed By: #### 15051- 8 ####[facility] LABCLIA [id number] [place], [place] [address]Iezuth [Moles/Vol]139 mmol/FCqodfq692-122NwoxpabcuHenry County Hospital on above:Order Comment: Specimen Type: BLOOD SPECIMENOrdering Facility: [facility] Address:[address] [place], [place] [address]Qadnpdpoh By: #### 23726-7 ####[facility] LABCLIA [id number] [place], [place] [address]Wzzu nitrogen [Mass/Vol]10 mg/dLNormal7-21[facility] Anderson HospitalComment on above:Order Comment: Specimen Type: BLOOD SPECIMENOrdering Facility: [facility] Address:[address] [place] [address]Qwztbgmcq By: #### 91123-8 ####[facility] LABCLIA [id number] [place], [place] [address]UYAHhv 36-04-4803BYQIFaxbwkigk (NSCAMN) RAEANN ECKERT ([id number]) 1965 F Date Time Provider Department 12/06/24 TRACIE MCCLAIN NSCAMN During your visit today, we recorded the following information about you: Cydney Rodgers RN 12/06/2024 3:01 PM Signed Scheduling Request - Established Patient Time Frame: 8-9 weeks Orders: MRI brain Provider: Jelena Visit type: In person Diagnosis: GBM Sean Loving 12/06/2024 4:46 PM Signed Done Allergies As of Date: 12/06/2024 Noted Allergy Reaction HYDROCODONE 11/22/2023 4 - Hives Comments: HIVES, itching, red rash all over body. OXYCODONE 11/08/2023 4 - Hives 2 - Rash Date Reviewed: 12/04/2024 Reviewed by: Edgard Schaffer LPN - Fully Assessed Reason for Visit: 9 weeks [Other] Prescriptions as of 12/06/2024 - iv contrast (will be provided with radiology test) MRI Brain Inject, intravenously, once for 1 dose.No IV access, insert saline lock prior to beginning of sedation, infusion, injection of imaging exam.Discontinue saline lock post exam. If Pt. has a central line or IVAD, may access for administration according to line specific nursing protocol.Once exam is complete flush line and de-access according to line specific nursing protocol in the MR contrast administration guidelines link - iv contrast (will be provided with radiology test) MRI Brain Inject, intravenously, once for 1 dose.No IV access, insert saline lock prior to beginning of sedation, infusion, injection of imaging exam.Discontinue saline lock post exam. If Pt. has a central line or IVAD, may access for administration according to line specific nursing protocol.Once exam is complete flush line and de-access according to line specific nursing protocol in the MR contrast administration guidelines link - lisinopril (ZESTRIL) 5 mg tablet Take 1 tablet by mouth once daily. - citalopram (CELEXA) 20 mg tablet Take 1 tablet by mouth once daily - busPIRone (BUSPAR) 10 mg tablet Take 1 tablet by mouth two times a day. - atorvastatin (LIPITOR) 80 mg tablet Take 1 tablet by mouth once daily. - temozolomide (TEMODAR) 180 mg capsule Take 2 capsules (360 mg) by mouth once daily for 5 days. - levETIRAcetam (KEPPRA) 500 mg tablet Take 1 tablet by mouth two times a day. - Acetaminophen 500 mg cap Take by mouth. - fluticasone propionate (FLONASE NASAL) Use in the nose. - aspirin, enteric coated (ASPIRIN, ENTERIC COATED) 81 mg EC tablet Take 81 mg by mouth once daily. - atenolol (TENORMIN) 50 mg tablet Take 50 mg by mouth once daily. For 30 days - ezetimibe (ZETIA) 10 mg tablet Take 10 mg by mouth once daily. - omeprazole (PRILOSEC) 20 mg capsule Take 20 mg by mouth once daily. - ondansetron orally disintegrating (ZOFRAN ODT) 4 mg disintegrating tablet Take 8 mg by mouth every 8 hours as needed. - prochlorperazine (COMPAZINE) 10 mg tablet Take 10 mg by mouth every 8 hours as needed. - senna-docusate (SENNA-S) 8.6-50 mg per tablet Take 1 tablet by mouth two times a day. Problem List As Of Date 12/06/2024 Noted Resolved GBM (glioblastoma multiforme) (HCC) [C71.9] 09/11/2024 Pulmonary nodules/lesions, multiple [R91.8] 09/11/2024 Encounter Status:Closed by SEAN LOVING on 12/06/24[facility] - ColumbusCNPNTelephone (NSCAMN) RAEANN ECKERT ([id number]) 1965 F Date Time Provider Department 12/06/24 TRACIE MCCLAIN NSCAMN During your visit today, we recorded the following information about you: Allergies As of Date: 12/06/2024 Noted Allergy Reaction HYDROCODONE 11/22/2023 4 - Hives Comments: HIVES, itching, red rash all over body. OXYCODONE 11/08/2023 4 - Hives 2 - Rash Date Reviewed: 12/04/2024 Reviewed by: Edgard Schaffer LPN - Fully Assessed Primary Visit Diagnosis:GBM (glioblastoma multiforme) (HCC) [C71.9] Order(s):MRI BRAIN WO/W IVCON [[id number]] Order #: [id number] FUTURE iv contrast (will be provided with radiology test)MRI Brain Inject, intravenously, once for 1 dose.No IV access, insert saline lock prior to beginning of sedation, infusion, injection of imaging exam.Discontinue saline lock post exam. If Pt. has a central line or IVAD, may access for administration according to line specific nursing protocol.Once exam is complete flush line and de-access according to line specific nursing protocol in the MR contrast administration guidelines linkDisp: 1 eachRfl: 0 Prescriptions as of 12/06/2024 - iv contrast (will be provided with radiology test) MRI Brain Inject, intravenously, once for 1 dose.No IV access, insert saline lock prior to beginning of sedation, infusion, injection of imaging exam.Discontinue saline lock post exam. If Pt. has a central line or IVAD, may access for administration according to line specific nursing protocol.Once exam is complete flush line and de-access according to line specific nursing protocol in the MR contrast administration guidelines link - iv contrast (will be provided with radiology test) MRI Brain Inject, intravenously, once for 1 dose.No IV access, insert saline lock prior to beginning of sedation, infusion, injection of imaging exam.Discontinue saline lock post exam. If Pt. has a central line or IVAD, may access for administration according to line specific nursing protocol.Once exam is complete flush line and de-access according to line specific nursing protocol in the MR contrast administration guidelines link - lisinopril (ZESTRIL) 5 mg tablet Take 1 tablet by mouth once daily. - citalopram (CELEXA) 20 mg tablet Take 1 tablet by mouth once daily - busPIRone (BUSPAR) 10 mg tablet Take 1 tablet by mouth two times a day. - atorvastatin (LIPITOR) 80 mg tablet Take 1 tablet by mouth once daily. - temozolomide (TEMODAR) 180 mg capsule Take 2 capsules (360 mg) by mouth once daily for 5 days. - levETIRAcetam (KEPPRA) 500 mg tablet Take 1 tablet by mouth two times a day. - Acetaminophen 500 mg cap Take by mouth. - fluticasone propionate (FLONASE NASAL) Use in the nose. - aspirin, enteric coated (ASPIRIN, ENTERIC COATED) 81 mg EC tablet Take 81 mg by mouth once daily. - atenolol (TENORMIN) 50 mg tablet Take 50 mg by mouth once daily. For 30 days - ezetimibe (ZETIA) 10 mg tablet Take 10 mg by mouth once daily. - omeprazole (PRILOSEC) 20 mg capsule Take 20 mg by mouth once daily. - ondansetron orally disintegrating (ZOFRAN ODT) 4 mg disintegrating tablet Take 8 mg by mouth every 8 hours as needed. - prochlorperazine (COMPAZINE) 10 mg tablet Take 10 mg by mouth every 8 hours as needed. - senna-docusate (SENNA-S) 8.6-50 mg per tablet Take 1 tablet by mouth two times a day. Problem List As Of Date 12/06/2024 Noted Resolved GBM (glioblastoma multiforme) (HCC) [C71.9] 09/11/2024 Pulmonary nodules/lesions, multiple [R91.8] 09/11/2024 Prescriptions ordered this encounter Disp Refills Start End IV CONTRAST (RADIOLOGY PROCEDURE) - * 1 ea* 0 12/06/2024 12/07/2024 Class: In Office Sig: MRI Brain Inject, intravenously, once for 1 dose.No IV access, insert saline lock prior to beginning of sedation, infusion, injection of imaging exam.Discontinue saline lock post exam. If Pt. has a central line or IVAD, may access for administration according to line specific nursing protocol.Once exam is complete flush line and de-access according to line specific nursing protocol in the MR contrast administration guidelines link Cosign required by TRACIE MCCLAIN[[id number]] Encounter Status:Closed by CYDNEY RODGERS on 12/06/24[facility] [id number] Visit (NSCAMN) RAEANN ECKERT ([id number]) 1965 F Date Time Provider Department 12/04/24 2:30 PM TRACIE MCCLAIN NSCAMN During your visit today, we recorded the following information about you: Temperature Pulse Respiration Blood pressure 98.8 degrees 84/minute 18/minute 138/82 Weight 100.7 kg Edgard Schaffer LPN 12/13/2024 8:01 PM Signed Additional intake questions: Has the patient had fever, nausea, vomiting, diarrhea, constipation, fatigue for > 1 week? No Does the patient have a decreased appetite? Yes Does patient want to see a Armhole Presser? No (yes to any of above refer patient to schedulers for dietitian appointment) ) Does patient have any new or increased numbness or tingling of extremities? No Is patient interested in fertility information? NA Does patient need any prescription refills? No Does patient have an advanced directive in place? Yes, copies are in Epic Electronically Signed By: JOHN Farrell Mark G, MD 12/13/2024 8:01 PM Signed [facility] The patient is eferred by Dr. Keith Dorsey for neuro-oncologic evaluation. Final recommendations will be communicated back to the requesting physician by way of the shared medical records, or letters to requesting physician via US Mail. Diagnosis Gbm (glioblastoma multiforme) (hcc) Subjective Chief Concern: R Parietal Glioblastoma, IDH Wild-Type, MGMT Hypermethylated, WORKFORCE PLANNING ANALYST WHO Grade 4 History of Present Illness: Raeann Eckert is a right handed 59 year old woman who presents to Neuro-Oncology Clinic for new patient evaluation of right parietal glioblastoma. She presented with mental status changes in November 2023 and was found to have a right parietal lobe lesion with vasogenic edema. Late November 2024, she underwent craniotomy at [facility]. Her history is as follows: 11/22/2023-11/29/2024 - Admitted at [facility] - presented as a direct admission from [facility] for NSGY evaluation for a R parietal lesion with surrounding edema noted on CTH at the OSH 11/22/2023 - MRI Brain/Spine: Brain: Heterogeneous solid cystic mass within the right parietal lobe measuring up to 3.5 cm. Differential considerations include a primary WORKFORCE PLANNING ANALYST malignancy such as a high-grade glioma versus metastatic disease. Associated mild mass effect with slight leftward midline shift. 11/23/2023 - Right Craniotomy - Case #: [id number]: Dr. Raphael Mckee at [facility] A-B. 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 Endothelial proliferation and necrosis are present. Immunohistochemistry performed on Block B2 demonstrate the lesional cells to be POSITIVE for CD10, focal GFAP, focal Olig2, and ATRX (retained, wild-type), while being NEGATIVE for IDH1 (R132H wild-type) and BRAF. P53 is overexpressed. PHH3 highlights mitotic figures up to 30/10 HPF and the Ki-67 proliferation index is up to approximately approximately 40%. Addendum: Negative IDH1 (R132H) immunohistochemistry is considered equivalent to NBX-onho-flmu status in this age group, particularly in an ATRX-retained tumor. Additional studies performed: -CD68, CD163, MPO, and lysozyme highlight copious associated histiocytes, but are weak/negative in the neoplastic cells. -Vimentin is diffusely positive confirming antigenicity of the lesional cells. -BRG1 and INI1 are retained. -The remaining markers are negative: SOX10, S100, SMA, pankeratin, inhibin, MOC-31, CD1a, CK5/6, MART1, p63, SF1, SALL4, GATA3, ERG, desmin, FRANCESCA, CK19, CK20, INSM1, Mono-EP4, PAX8, CAM 5.2, CD30, and CK7. 01/12/2024-03/08/2024 - 30 fractions concurrent radiation: per Dr. Alexandr Field at [facility] 01/12/2024-03/08/2024 - Concurrent Temodar per Dr. Rebecca Oh at [facility] - held 02/23-03/01 due to low platelets 05/21/2024-05/25/2024 - C1 adjuvant Temodar 320mg 5 days on (23 days off) Today, Mrs. Eckert presents with her son. After moving from [place] she establishes her care in [place]. She expressed the dseire to receive oncologic care from Dr. Keith Dorsey and also follow up at [facility]. Mrs. Eckert reports persistent fatigue, balance issues, continuous headaches rated 5/10, and occasional speech stumbling. Headaches improve when lying down and she does not take any pain medication for it. She experiences difficulty with daily activities due to fatigue and balance problems, requiring frequent rest after minimal exertion. She recalls a seizure episode coinciding with the initial diagnosis, (more content not included)...[facility] [place] [id number]: Essentially stable postoperative appearance of the brain when compared to prior exam from 07/27/2024. No findings to suggest progression. Storage Management Architect: JERROD Transcribe Date/Time: Dec 03 2024 3:59P Dictated by : SOFI SCHAFFER MD This examination was interpreted and the report reviewed and electronically signed by: SOFI SCHAFFER MD on Dec 03 2024 4:07PM [facility] DIVISION OF RADIOLOGY* * *Final Report* * * DATE OF EXAM: Dec 03 2024 2:27PM [facility] - MRI BRAIN WO/W IVCON / PROCEDURE REASON: multiple diagnoses * * * * Physician Interpretation * * * * EXAMINATION: MRI BRAIN WO/W IVCON HISTORY: GBM (glioblastoma multiforme) (HCC) Pulmonary nodules/lesions, multiple - - - Primary neoplasm/metastasis/postop F/U - Brain/WORKFORCE PLANNING ANALYST neoplasm, assess treatment response - [id number] - - - - TECHNIQUE: MRI brain routine protocol without and with contrast. M: [id number] MR Contrast: Elucirem Contrast Dose: 10 cc Route of Administration: IV COMPARISON: MRI brain 07/27/2024 (outside examination). RESULT: Acute Change: No evidence of an acute intracranial process. Hemorrhage: No evidence of expansile or space occupying extra-axial hemorrhage. Mass Lesion/ Mass Effect: Again postoperative changes related to right parietal craniotomy for underlying mass resection with resection cavity/parenchymal defect in the right parietal lobe. Trace extra-axial collection underneath the craniotomy defect measuring up to 2 mm (series 8, image 11). Stable appearance of the resection cavity itself with small areas of probably postsurgical curvilinear enhancement along the medial margin of the resection cavity without evidence of progressive nodular enhancement. Stable appearance of loose surrounding T2/FLAIR hyperintensity since 07/27/2024. No new areas of nodular enhancement are evident. Susceptibility deep to the craniotomy defect likely postsurgical. Chronic Change: The white matter is within normal limits of signal intensity for age. Parenchyma: No significant parenchymal volume loss for age. Ventricles: Normal caliber and morphology. Skull Base: Hypothalamic and pituitary region are grossly normal. Craniocervical junction is normal. No significant marrow replacement process. Vasculature: Major intracranial arteries and dural venous sinuses demonstrate typical flow voids, suggesting patency by spin echo criteria. Other: The paranasal sinuses are clear. Trace fluid in the right mastoid air cells. The left mastoid air cells are clear. The orbits and extracranial soft tissues are unremarkable. DIVISION OF RADIOLOGYProvider, [facility] [place] - 12/03/2024 * * *Final Report* * * DATE OF EXAM: Dec 03 2024 2:27PM SHARLA Gonzalez5 - MRI BRAIN WO/W IVCON / PROCEDURE REASON: multiple diagnoses * * * * Physician Interpretation * * * * EXAMINATION: MRI BRAIN WO/W IVCON HISTORY: GBM (glioblastoma multiforme) (HCC) Pulmonary nodules/lesions, multiple - - - Primary neoplasm/metastasis/postop F/U - Brain/WORKFORCE PLANNING ANALYST neoplasm, assess treatment response - [id number] - - - - TECHNIQUE: MRI brain routine protocol without and with contrast. M: [id number] MR Contrast: Elucirem Contrast Dose: 10 cc Route of Administration: IV COMPARISON: MRI brain 07/27/2024 (outside examination). RESULT: Acute Change: No evidence of an acute intracranial process. Hemorrhage: No evidence of expansile or space occupying extra-axial hemorrhage. Mass Lesion/ Mass Effect: Again postoperative changes related to right parietal craniotomy for underlying mass resection with resection cavity/parenchymal defect in the right parietal lobe. Trace extra-axial collection underneath the craniotomy defect measuring up to 2 mm (series 8, image 11). Stable appearance of the resection cavity itself with small areas of probably postsurgical curvilinear enhancement along the medial margin of the resection cavity without evidence of progressive nodular enhancement. Stable appearance of loose surrounding T2/FLAIR hyperintensity since 07/27/2024. No new areas of nodular enhancement are evident. Susceptibility deep to the craniotomy defect likely postsurgical. Chronic Change: The white matter is within normal limits of signal intensity for age. Parenchyma: No significant parenchymal volume loss for age. Ventricles: Normal caliber and morphology. Skull Base: Hypothalamic and pituitary region are grossly normal. Craniocervical junction is normal. No significant marrow replacement process. Vasculature: Major intracranial arteries and dural venous sinuses demonstrate typical flow voids, suggesting patency by spin echo criteria. Other: The paranasal sinuses are clear. Trace fluid in the right mastoid air cells. The left mastoid air cells are clear. The orbits and extracranial soft tissues are unremarkable. IMPRESSION IMPRESSION: Essentially stable postoperative appearance of the brain when compared to prior exam from 07/27/2024. No findings to suggest progression. Storage Management Architect: JERROD Transcribe Date/Time: Dec 03 2024 3:59P Dictated by : SOFI SCHAFFER MD This examination was interpreted and the report reviewed and electronically signed by: SOFI SCHAFFER MD on Dec 03 2024 4:07PM EST [facility] (n[facility]ative)[facility] Brain WO and W contrast IVOrdered By: [facility] Provider on [id number] ClinicMRI BRAIN WO/W IVCONon [id number] BRAIN WO/W IVCON* * *Final Report* * * DATE OF EXAM: Dec 03 2024 2:27PM [facility]295 - MRI BRAIN WO/W IVCON / PROCEDURE REASON: multiple diagnoses * * * * Physician Interpretation * * * * EXAMINATION: MRI BRAIN WO/W IVCON HISTORY: GBM (glioblastoma multiforme) (HCC) Pulmonary nodules/lesions, multiple - - - Primary neoplasm/metastasis/postop F/U - Brain/WORKFORCE PLANNING ANALYST neoplasm, assess treatment response - [id number] - - - - TECHNIQUE: MRI brain routine protocol without and with contrast. M: [id number] MR Contrast: Elucirem Contrast Dose: 10 cc Route of Administration: IV COMPARISON: MRI brain 07/27/2024 (outside examination). RESULT: Acute Change: No evidence of an acute intracranial process. Hemorrhage: No evidence of expansile or space occupying extra-axial hemorrhage. Mass Lesion/ Mass Effect: Again postoperative changes related to right parietal craniotomy for underlying mass resection with resection cavity/parenchymal defect in the right parietal lobe. Trace extra-axial collection underneath the craniotomy defect measuring up to 2 mm (series 8, image 11). Stable appearance of the resection cavity itself with small areas of probably postsurgical curvilinear enhancement along the medial margin of the resection cavity without evidence of progressive nodular enhancement. Stable appearance of loose surrounding T2/FLAIR hyperintensity since 07/27/2024. No new areas of nodular enhancement are evident. Susceptibility deep to the craniotomy defect likely postsurgical. Chronic Change: The white matter is within normal limits of signal intensity for age. Parenchyma: No significant parenchymal volume loss for age. Ventricles: Normal caliber and morphology. Skull Base: Hypothalamic and pituitary region are grossly normal. Craniocervical junction is normal. No significant marrow replacement process. Vasculature: Major intracranial arteries and dural venous sinuses demonstrate typical flow voids, suggesting patency by spin echo criteria. Other: The paranasal sinuses are clear. Trace fluid in the right mastoid air cells. The left mastoid air cells are clear. The orbits and extracranial soft tissues are unremarkable. IMPRESSION: Essentially stable postoperative appearance of the brain when compared to prior exam from 07/27/2024. No findings to suggest progression. Storage Management Architect: [facility] Transcribe Date/Time: Dec 03 2024 3:59P Dictated by : SOFI SCHAFFER MD This examination was interpreted and the report reviewed and electronically signed by: SOFI SCHAFFER MD on Dec 03 2024 4:07PM EST [id number] Health Hamiltonon [id number] Telephone (HEMASA) RAEANN ECKERT ([id number]) 1965 F Date Time Provider Department 11/12/24 SIMONE MITCHELL During your visit today, we recorded the following information about you: Simone Mitchell RN 11/12/2024 10:02 AM Signed Pt c/o rash to face and chest. Describes the rash on her face as flat red bumps. Describes the rash on her chest as raised and pimple-like. Notes itching to face and chest. Has been applying cortisone cream to face which seems to help the itch. Rash began over the weekend. Notes she had been out in the sun for about 1 hour the day before it appeared. Pt is on day 3 of her current Temodar cycle. Pt's My Chart is not currently active so she is unable to send pics at this time. Link to activate sent to pt via text message. CRISTIANO: Please advise on the above. Thanks! RAN Gatica Mindy M, PA-C 11/12/2024 11:52 AM Signed I would not use cortisone on the face. It is okay to use on the chest. Use benadryl 25mg PO q6 hours for itching. Will give a trial of Prednisone 40 mg x 4 days. Avoid the sun please. She is not currently taking temodar, correct? She should have finished this cycle yesterday? Call if rash worsens. ERIC Najera Rebecca, RN 11/12/2024 12:02 PM Signed Pt notified of recommendations and verbalizes understanding. Pt states she reported incorrectly during our initial conversation. States she started her current cycle of Temodar on 11/08. Has one dose remaining which she will take tonight. Simone Mitchell RN Allergies As of Date: 11/12/2024 Noted Allergy Reaction HYDROCODONE 11/22/2023 4 - Hives Comments: HIVES, itching, red rash all over body. OXYCODONE 11/08/2023 4 - Hives 2 - Rash Date Reviewed: 11/12/2024 Reviewed by: Toña Franklin PA-C - Fully Assessed Reason for Visit: Care Coordination [3491] Cmt: Rash Order(s):predniSONE (DELTASONE) 20 mg tabletTake 2 tablets by mouth once daily for 4 days.Disp: 8 tabletRfl: 0 Prescriptions as of 11/12/2024 - predniSONE (DELTASONE) 20 mg tablet Take 2 tablets by mouth once daily for 4 days. - lisinopril (ZESTRIL) 5 mg tablet Take 1 tablet by mouth once daily. - citalopram (CELEXA) 20 mg tablet Take 1 tablet by mouth once daily - busPIRone (BUSPAR) 10 mg tablet Take 1 tablet by mouth two times a day. - atorvastatin (LIPITOR) 80 mg tablet Take 1 tablet by mouth once daily. - temozolomide (TEMODAR) 180 mg capsule Take 2 capsules (360 mg) by mouth once daily for 5 days. - levETIRAcetam (KEPPRA) 500 mg tablet Take 1 tablet by mouth two times a day. - Acetaminophen 500 mg cap Take by mouth. - fluticasone propionate (FLONASE NASAL) Use in the nose. - aspirin, enteric coated (ASPIRIN, ENTERIC COATED) 81 mg EC tablet Take 81 mg by mouth once daily. - atenolol (TENORMIN) 50 mg tablet Take 50 mg by mouth once daily. For 30 days - ezetimibe (ZETIA) 10 mg tablet Take 10 mg by mouth once daily. - omeprazole (PRILOSEC) 20 mg capsule Take 20 mg by mouth once daily. - ondansetron orally disintegrating (ZOFRAN ODT) 4 mg disintegrating tablet Take 8 mg by mouth every 8 hours as needed. - prochlorperazine (COMPAZINE) 10 mg tablet Take 10 mg by mouth every 8 hours as needed. - senna-docusate (SENNA-S) 8.6-50 mg per tablet Take 1 tablet by mouth two times a day. Problem List As Of Date 11/12/2024 Noted Resolved GBM (glioblastoma multiforme) (HCC) [C71.9] 09/11/2024 Pulmonary nodules/lesions, multiple [R91.8] 09/11/2024 Prescriptions ordered this encounter Disp Refills Start End PREDNISONE 20 MG TABLET 8 ta* 0 11/12/2024 11/16/2024 Route: PO Sig: Take 2 tablets by mouth once daily for 4 days. Encounter Status:Closed by SIMONE MITCHELL on 11/12/24[facility] [id number] (MANUELA) RAEANN ECKERT ([id number]) 1965 F Date Time Provider Department 11/08/24 EMMA SLATER During your visit today, we recorded the following information about you: Emma Slater LSW 11/08/2024 10:23 AM Signed SOCIAL WORK FOLLOW UP NOTE: [facility] Date of service:11/08/24 Raeann Eckert is being seen for a follow up social work visit. Today's visit includes: patient TOPICS ADDRESSED: Medicaid PLAN: Continue follow up as needed Assigned SW listed in Care Team tab: Yes SW called Patient to follow up on her questions about Medicaid. Patient states that she has not yet re-applied for Medicaid. Patient says that maybe tonight she and her sister will complete the application online. SW asked if the Patient had any Medicaid related questions and she states that she does not at this time. SW received a call from Mariaa at the [facility] stating that she has received a few [facility] charges [facility] and will pay them the next billing cycle on 11/23. Patient has $12.56 left from the $500 cancer care fund. MARCELINO Navarro Allergies As of Date: 11/08/2024 Noted Allergy Reaction HYDROCODONE 11/22/2023 4 - Hives Comments: HIVES, itching, red rash all over body. OXYCODONE 11/08/2023 4 - Hives 2 - Rash Date Reviewed: 11/06/2024 Reviewed by: Sandy Lock MA - Fully Assessed Prescriptions as of 11/08/2024 - lisinopril (ZESTRIL) 5 mg tablet Take 1 tablet by mouth once daily. - citalopram (CELEXA) 20 mg tablet Take 1 tablet by mouth once daily - busPIRone (BUSPAR) 10 mg tablet Take 1 tablet by mouth two times a day. - atorvastatin (LIPITOR) 80 mg tablet Take 1 tablet by mouth once daily. - temozolomide (TEMODAR) 180 mg capsule Take 2 capsules (360 mg) by mouth once daily for 5 days. - levETIRAcetam (KEPPRA) 500 mg tablet Take 1 tablet by mouth two times a day. - Acetaminophen 500 mg cap Take by mouth. - fluticasone propionate (FLONASE NASAL) Use in the nose. - aspirin, enteric coated (ASPIRIN, ENTERIC COATED) 81 mg EC tablet Take 81 mg by mouth once daily. - atenolol (TENORMIN) 50 mg tablet Take 50 mg by mouth once daily. For 30 days - ezetimibe (ZETIA) 10 mg tablet Take 10 mg by mouth once daily. - omeprazole (PRILOSEC) 20 mg capsule Take 20 mg by mouth once daily. - ondansetron orally disintegrating (ZOFRAN ODT) 4 mg disintegrating tablet Take 8 mg by mouth every 8 hours as needed. - prochlorperazine (COMPAZINE) 10 mg tablet Take 10 mg by mouth every 8 hours as needed. - senna-docusate (SENNA-S) 8.6-50 mg per tablet Take 1 tablet by mouth two times a day. Problem List As Of Date 11/08/2024 Noted Resolved GBM (glioblastoma multiforme) (HCC) [C71.9] 09/11/2024 Pulmonary nodules/lesions, multiple [R91.8] 09/11/2024 Encounter Status:Closed by EMMA SLATER on 11/08/24[facility] Geronimo [id number] (HEMASA) RAEANN ECKERT ([id number]) 1965 F Date Time Provider Department 11/07/24 DAKOTA RÍOS During your visit today, we recorded the following information about you: Dakota Ríos RN 11/07/2024 11:34 AM Signed Call received from pt stating she has questions regarding her upcoming appointments. All appointment dates/times/locations reviewed with pt and she denies any other questions regarding appointments. Pt states she does have questions regarding the medicaid that she was told to fill out. Will request Emma to reach out to pt. Message sent to her on teams as well as this telephone encounter. Dakota Ríos RN Allergies As of Date: 11/07/2024 Noted Allergy Reaction HYDROCODONE 11/22/2023 4 - Hives Comments: HIVES, itching, red rash all over body. OXYCODONE 11/08/2023 4 - Hives 2 - Rash Date Reviewed: 11/06/2024 Reviewed by: Sandy Lock MA - Fully Assessed Reason for Visit: Care Coordination [1533] Cmt: questions Prescriptions as of 11/07/2024 - iv contrast (will be provided with radiology test) MRI Brain Inject, intravenously, once for 1 dose.No IV access, insert saline lock prior to beginning of sedation, infusion, injection of imaging exam.Discontinue saline lock post exam. If Pt. has a central line or IVAD, may access for administration according to line specific nursing protocol.Once exam is complete flush line and de-access according to line specific nursing protocol in the MR contrast administration guidelines link - lisinopril (ZESTRIL) 5 mg tablet Take 1 tablet by mouth once daily. - citalopram (CELEXA) 20 mg tablet Take 1 tablet by mouth once daily - busPIRone (BUSPAR) 10 mg tablet Take 1 tablet by mouth two times a day. - atorvastatin (LIPITOR) 80 mg tablet Take 1 tablet by mouth once daily. - temozolomide (TEMODAR) 180 mg capsule Take 2 capsules (360 mg) by mouth once daily for 5 days. - levETIRAcetam (KEPPRA) 500 mg tablet Take 1 tablet by mouth two times a day. - Acetaminophen 500 mg cap Take by mouth. - fluticasone propionate (FLONASE NASAL) Use in the nose. - aspirin, enteric coated (ASPIRIN, ENTERIC COATED) 81 mg EC tablet Take 81 mg by mouth once daily. - atenolol (TENORMIN) 50 mg tablet Take 50 mg by mouth once daily. For 30 days - ezetimibe (ZETIA) 10 mg tablet Take 10 mg by mouth once daily. - omeprazole (PRILOSEC) 20 mg capsule Take 20 mg by mouth once daily. - ondansetron orally disintegrating (ZOFRAN ODT) 4 mg disintegrating tablet Take 8 mg by mouth every 8 hours as needed. - prochlorperazine (COMPAZINE) 10 mg tablet Take 10 mg by mouth every 8 hours as needed. - senna-docusate (SENNA-S) 8.6-50 mg per tablet Take 1 tablet by mouth two times a day. Problem List As Of Date 11/07/2024 Noted Resolved GBM (glioblastoma multiforme) (HCC) [C71.9] 09/11/2024 Pulmonary nodules/lesions, multiple [R91.8] 09/11/2024 Encounter Status:Closed by DAKOTA RÍOS on 11/07/24[facility] RAEANN ECKERT ([id number]) 1965 F Date Time Provider Department 11/07/24 SELF NSCAMN During your visit today, we recorded the following information about you: Kailey Garcia 11/07/2024 10:44 AM Signed Request Summary [[id number]] Specialty: HEMATOLOGY/ONCOLOGY Status: Needs Scheduling Requested appt date: 12/05/2024 (Approximate) Created by: Keith Dorsey MD (Follow-up) Responsible dept: NOEMYMagdalena HUDDLESTON Scheduling Instructions 1. Labs today - Lizeth Juarez - please call results and clear for starting C7 3. RTC in 4 weeks with labs same day prior to C8 4. Referral to brain tumor clinic for follow up 5. MRI Brain wo/w contrast - [facility] please 1. Archaeology Professor: Who is requesting this appointment?patient 2. Archaeology Professor: Please indicate the best contact information for our team to reach you with any questions/concerns we may have? cell 3. Archaeology Professor: What is your diagnosis? GBM 4. Archaeology Professor: Have you ever been seen at our center before? No 5. Archaeology Professor: Is there a specific doctor you were referred to? No 6. Archaeology Professor: What facility and/or hospital have you been seen at? [facility] Name of facility/name of provider where patient was treated. Keith Dorsey MD 7. Archaeology Professor: For this appointment, we will need to request a few records from you. This will help our triage team be able to select the best provider for your treatment. a. Please provide: Most recent MRI- spine/Brain (Archaeology Professor will check CareEverywhere for records). 8. Archaeology Professor: Where was your last imaging completed:[facility] July 2024(Ideally should be completed within the last six months). 9. Archaeology Professor: Have you had any surgeries pertaining to this appointment? Yes If yes, please obtain pathology report. 10. Archaeology Professor: Please allow up to 48-72 hours for our triage team to review your records. Once they reviewed your records, we will be in contact with you. a. Was the patient made aware of the turnaround time? Yes 11. Archaeology Professor: Our department offers virtual visits depending on the provider you are recommended to see and the state that you live in. If able to schedule, would you like a virtual visit?No a. If answered yes: Does the patient have MyChart access: No If not, then visitor services assistant will walk patient through getting access to [employer]. b. If no, Are you interested in 2nd Opinion Consult (If not, please indicate patient refused to schedule at this time and the reason to not proceed with scheduling). 12. Sent to triage pool. (Waiting approval). Siria Hall 11/08/2024 8:38 AM Signed Images viewable Siria Hall November 08, 2024 8:38 AM Allergies As of Date: 11/07/2024 Noted Allergy Reaction HYDROCODONE 11/22/2023 4 - Hives Comments: HIVES, itching, red rash all over body. OXYCODONE 11/08/2023 4 - Hives 2 - Rash Date Reviewed: 11/06/2024 Reviewed by: Sandy Lock MA - Fully Assessed Reason for Visit: Triage [Other] Cmt: [facility] update. Images requested from [facility] via fax Prescriptions as of 11/08/2024 - lisinopril (ZESTRIL) 5 mg tablet Take 1 tablet by mouth once daily. - citalopram (CELEXA) 20 mg tablet Take 1 tablet by mouth once daily - busPIRone (BUSPAR) 10 mg tablet Take 1 tablet by mouth two times a day. - atorvastatin (LIPITOR) 80 mg tablet Take 1 tablet by mouth once daily. - temozolomide (TEMODAR) 180 mg capsule Take 2 capsules (360 mg) by mouth once daily for 5 days. - levETIRAcetam (KEPPRA) 500 mg tablet Take 1 tablet by mouth two times a day. - Acetaminophen 500 mg cap Take by mouth. - fluticasone propionate (FLONASE NASAL) Use in the nose. - aspirin, enteric coated (ASPIRIN, ENTERIC COATED) 81 mg EC tablet Take 81 mg by mouth once daily. - atenolol (TENORMIN) 50 mg tablet Take 50 mg by mouth once daily. For 30 days - ezetimibe (ZETIA) 10 mg tablet Take 10 mg by mouth once daily. - omeprazole (PRILOSEC) 20 mg capsule Take 20 mg by mouth once daily. - ondansetron orally disintegrating (ZOFRAN ODT) 4 mg disintegrating tablet Take 8 mg by mouth every 8 hours as needed. - prochlorperazine (COMPAZINE) 10 mg tablet Take 10 mg by mouth every 8 hours as needed. - senna-docusate (SENNA-S) 8.6-50 mg per tablet Take 1 tablet by mouth two times a day. Problem List As Of Date 11/07/2024 Noted Resolved GBM (glioblastoma multiforme) (HCC) [C71.9] 09/11/2024 Pulmonary nodules/lesions, multiple [R91.8] 09/11/2024 Encounter Status:Closed by KAILEY GARCIA on 11/07/24[facility] Auto Differential panel (Bld)on 60-79-1534Ujpwrkdsg (Bld) [#/Vol] 10*3/uLNormal<0.11CMagruder Memorial Hospital on above:Order Comment: Specimen Type: BLOOD SPECIMENOrdering Facility: [facility] Address:[address] [place], [place] [address]Performed By: #### 89189-2 ####[facility] LABCLIA [id number] [place], [place] [address]Fyuhpglhn/100 WBC (Bld)0.5 %NormalHenry County Hospital on above:Order Comment: Specimen Type: BLOOD SPECIMENOrdering Facility: [facility] Address:[address] [place], [place] [address]Performed By: #### 20964-2 ####[facility] LABCLIA [id number] [place], [place] [address]Gxsxicomngyw cell count method Nom (Bld)AutoNormalCMagruder Memorial Hospital on above:Order Comment: Specimen Type: BLOOD SPECIMENOrdering Facility: [facility] Address:[address] [place], [place] [address]Performed By: #### 04309-5 ####[facility] LABIA [id number] [place], [place] [address]Wtjbxubulrr (Bld) [#/Vol]0.11 10*3/uLNormal<0.46[facility] on above:Order Comment: Specimen Type: BLOOD SPECIMENOrdering Facility: [facility] Address:[address] [place], [place] [address]Performed By: #### 36196-2 ####[facility] LABIA [id number] [place], [place] [address]Bcsivysodud/100 WBC (Bld)2.7 %NormalHenry County Hospital on above:Order Comment: Specimen Type: BLOOD SPECIMENOrdering Facility: [facility] Address:[address] [place], [place] [address]Performed By: #### 91023-5 ####[facility] LABIA [id number] [place], [place] [address]Zinqyzeceoe distribution width (RBC) [Ratio]13.8 %Normal 11.5-15.0[facility] on above:Order Comment: Specimen Type: BLOOD SPECIMENOrdering Facility: [facility] Address:[address] [place], [place] [address]Performed By: #### 22915-1 ####[facility] LABIA [id number] [place] [address] Hematocrit (Bld) [Volume fraction]37.6 %Exaxyc92.0-46.0[facility] on above:Order Comment: Specimen Type: BLOOD SPECIMENOrdering Facility: [facility] Address:[address] [place], [place] [address]Performed By: #### 50242-5 ####[facility] LABCLIA [id number] [place], [place] [address]Uwdfezicpg (Bld) [Mass/Vol]12.8 g/lIEomdcr10.5-15.5CMagruder Memorial Hospital on above:Order Comment: Specimen Type: BLOOD SPECIMENOrdering Facility: [facility] Address:[address] [place], [place] [address]Performed By: #### 81063-1 ####[facility] LABCLIA [id number] [place], [place] [address]Zfpkkitg granulocytes (Bld) [#/Vol]0.03 10*3/uLNormal <0.10[facility] on above:Order Comment: Specimen Type: BLOOD SPECIMENOrdering Facility: [facility] Address:[address] [place], [place] [address]Performed By: #### 79466-3 ####[facility] LABCLIA [id number] [place], [place] [address]Edukoadu granulocytes/100 WBC (Bld)0.7 %NormalHenry County Hospital on above: Order Comment: Specimen Type: BLOOD SPECIMENOrdering Facility: [facility] Address:[address] [place], [place] [address]Performed By: #### 70751- 8 ####[facility]ENTER[facility] LABCLIA [id number] [place], [place] [address]Rihczfksrcm (Bld) [#/Vol]0.64 10*3/uLLow1.00-4.00 [facility] on above:Order Comment: Specimen Type: BLOOD SPECIMENOrdering Facility: [facility] Address:[address] [place], [place] [address]Performed By: #### 29786-0 ####[facility] LABIA [id number] [place], [place] [address]Slujuclxrce/100 WBC (Bld)15.4 %NormalHenry County Hospital on above:Order Comment: Specimen Type: BLOOD SPECIMENOrdering Facility: [facility] Address:[address] [place], [place] [address]Performed By: #### 78442-3 ####[facility] LABCLIA [id number] [place], [place] [address]PKK (RBC) [Entitic mass]32.3 spPvstmz99.0-34.0[facility] on above:Order Comment: Specimen Type: BLOOD SPECIMENOrdering Facility: [facility] Address:[address] [place], [place] [address]Performed By: #### 21566-3 ####[facility] LABCLIA [id number] [place], [place] [address]EJJB (RBC) [Mass/Vol]34.0 g/zUQkijzh17.5-36.0[facility] on above: Order Comment: Specimen Type: BLOOD SPECIMENOrdering Facility: [facility] Address:[address] [place], [place] [address]Performed By: #### 97011- 8 ####[facility] LABCLIA [id number] [place], [place] [address]JAH (RBC) [Entitic vol]94.9 fDGkilvw73.0-100.0[facility] on above:Order Comment: Specimen Type: BLOOD SPECIMENOrdering Facility: [facility] Address:[address] [place], [place] [address]Performed By: #### 66020-7 ####[facility] LABCLIA [id number] [place], [place] [address]Nivobakra (Bld) [#/Vol]0.38 10*3/uLNormal<0.87[facility] on above:Order Comment: Specimen Type: BLOOD SPECIMENOrdering Facility: [facility] Address:[address] [place], [place] [address]Performed By: #### 07836- 8 ####[facility] LABCLIA [id number] [place], [place] [address]Rdkxsuumm/100 WBC (Bld)9.2 %NormalHenry County Hospital on above:Order Comment: Specimen Type: BLOOD SPECIMENOrdering Facility: [facility] Address:[address] [place], [place] [address]Performed By: #### 63293-2 ####[facility] LABCLIA [id number] [place], [place] [address]Egfupoaylnp (Bld) [#/Vol]2.97 10*3/uLNormal1.45-7.50[facility] on above:Order Comment: Specimen Type: BLOOD SPECIMENOrdering Facility: [facility] Address:[address] [place], [place] [address]Performed By: #### 95361-2 ####[facility] LABCLIA [id number] [place], [place] [address]Gpfwutpwfrk/100 WBC (Bld)71.5 %NormalHenry County Hospital on above:Order Comment: Specimen Type: BLOOD SPECIMENOrdering Facility: [facility] Address:[address] [place], [place] [address]Performed By: #### 91410-9 ####[facility] LABCLIA [id number] [place], [place] [address]Uzcantary RBC (Bld) [#/Vol] 10*3/uLNormal<0.01[facility] on above:Order Comment: Specimen Type: BLOOD SPECIMENOrdering Facility: [facility] Address:[address] [place], [place] [address]Performed By: #### 45194-8 ####[facility] LABIA [id number] [place], [place] [address]Xljafxbby RBC/100 WBC (Bld) [Ratio]0.0 /100 WBCNormal [facility] on above:Order Comment: Specimen Type: BLOOD SPECIMENOrdering Facility: [facility] Address:[address] [place], [place] [address]Performed By: #### 91373-9 ####[facility] LABCLIA [id number] [place], [place] [address]Fltymcgt mean volume (Bld) [Entitic vol]8.7 fLLow9.0-12.7CMagruder Memorial Hospital on above:Order Comment: Specimen Type: BLOOD SPECIMENOrdering Facility: [facility] Address:[address] [place], [place] [address]Performed By: #### 34262-1 ####[facility] LABCLIA [id number] [place], [place] [address]Pbcyhxeyo (Bld) [#/Vol]129 10*3/vYNdw045-955KcpvvocwwHenry County Hospital on above:Order Comment: Specimen Type: BLOOD SPECIMENOrdering Facility: [facility] Address:[address] [place], [place] [address]Performed By: #### 63427-4 ####[facility] LABCLIA [id number] [place], [place] [address]IPJ (Bld) [#/Vol]3.96 10*6/uLNormal3.90-5.20[facility] on above: Order Comment: Specimen Type: BLOOD SPECIMENOrdering Facility: [facility] Address:[address] [place], [place] [address]Performed By: #### 93456- 8 ####[facility] LABCLIA [id number] [place], [place] [address]FJX (Bld) [#/Vol]4.15 10*3/uLNormal3.70-11.00[facility] on above:Order Comment: Specimen Type: BLOOD SPECIMENOrdering Facility: [facility] Address:[address] [place], [place] [address]Performed By: #### 77677-4 ####[facility] LABCLIA [id number] [place], [place] [address]HVRWOOoh [id number] (SP) Office (HEMASA) RAEANN ECKERT ([id number]) 1965 F Date Time Provider Department 11/06/24 9:00 AM KEITH DORSEY During your visit today, we recorded the following information about you: Temperature Pulse Respiration Blood pressure 97 degrees 98/minute 16/minute 134/80 Weight Height 101.4 kg 1.631 m Keith Dorsey MD 11/12/2024 10:46 AM Signed NAME: Raeann Eckert CLINIC NO.: [id number] DATE OF SERVICE: November 06, 2024 (Jana) Some elements in this clinic note that are critical to medical decision making have been carefully reviewed and included from a prior clinic note dated: October 10, 2024 (Shanti) Referring Provider: Self Referred Additional Clinicians involved in Raeann Eckert's care: DIAGNOSIS: Gliosarcoma CASE SUMMARY / ASSESSMENT: 58 year old woman who presented with mental status changes in November 2024 and was found to have a right partietal lobe lesion with vasogenic edema. 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 She is currently due to start C5 and was released from [place] to return back to her home in [place]. SUMMARIZED PLAN OF CARE: Labs today - Lizeth Juarez - please call results and clear for starting C7 C7 Temodar to start TuesdayNovember 07 continue with increased dose of Temodar 360mg, D1-5 q 28 days RTC in 4 weeks with labs same day prior to C8 Treat through May 2025. Referral to brain tumor clinic for follow up MRI Brain wo/w contrast - [facility] please Annual CT Chest to monitor pulmonary nodules - October 2025 AI Assisted A/P: 1. GBM (glioblastoma multiforme) (HCC) (C71.9) Currently undergoing chemotherapy with Temodar. Last MRI was in July. - Ordered MRI of the brain with and without contrast at a [facility] facility. - Referred to the brain tumor team at [facility] for further management and follow-up. 2. Pulmonary nodules/lesions, multiple (R91.8) Annual CT scans have been performed; latest scan reviewed and appeared stable. - Scheduled next annual CT scan for October. 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 - Refilled buspirone prescription. 4. Encounter for antineoplastic chemotherapy (Z51.11) Undergoing chemotherapy with Temodar, starting cycle 7 on November 07. - Ordered labs to be drawn today; results to be reviewed by Lizeth Mitchell and myself. - Continue Temodar 360 mg orally on days 1-5 of each cycle. 5. Current moderate episode of major depressive disorder without prior episode (HCC) (F32.1) Managed with citalopram 20 mg daily. - Refilled citalopram prescription. 6. Nonintractable epilepsy without status epilepticus, unspecified epilepsy type (HCC) (G40.909) Managed with levetiracetam (Keppra). - Refilled levetiracetam prescription. 7. Hypertensive heart and chronic kidney disease with heart failure and stage 1 through stage 4 chronic kidney disease, or unspecified chronic kidney disease (HCC) (I13.0) Managed with lisinopril and atenolol. - Refilled lisinopril and atenolol prescriptions. 8. Hyperlipidemia, unspecified hyperlipidemia type (E78.5) Managed with atorvastatin. - Refilled atorvastatin prescription. 9. Gastro-esophageal reflux disease without esophagitis (K21.9) Managed with omeprazole. - Refilled omeprazole prescription. - CASE HISTORY: Reverse Chronological Order 07/27/2024 - CT Chest wo c: 1. Bilateral subcentimeter pulmonary nodules, as above. Given the patient's history, correlation with follow-up examinations is recommended to assess for stability. 2. No substantial intrathoracic adenopathy is identified. 10/10/2024 - start C6 Temodar- 360 mg on D1-5 q 28days 09/12/2024 - Start C5 Temodar - increase to 360mg on D1-5 q 28 days 08/13/2024-08/17/2024 - C4 D1-5 q 28 Temodar 07/27/2024 - MRI Brain: Postsurgical changes of prior right parietal craniotomy and mass resection. Slight interval increase in surrounding hyperintensity with new mildly irregular enhancement along the medial margin of the resection cavity. Findings may relate to evolving posttreatment change and/or recurrent or progressive disease. Recommend continued attention on follow-up. 07/16/2024-07/20/2024 - C3 Temodar 06/19/2024-06/23/2024 - C2 Temodar 05/30/2024 - MRI Brain: Postsurgical changes of prior right parietal mass resection. No findings suggestive of recurrent or progressive disease. Mild increase in hyperintensity along (more content not included)...NormalMercy Health Anderson Hospital Comprehensive metabolic 2000 panelon 36-96-3070Dzdeefn [Mass/Vol]4.1 g/dLNormal 3.9-4.9CMagruder Memorial Hospital on above:Order Comment: Specimen Type: BLOOD SPECIMENOrdering Facility: [facility] Address:[address] [place], [place] [address]Uadthkfuu By: #### 53156-3 ####[facility] LABIA [id number] [place], [place] [address]YRZ [Catalytic activity/Vol]126 U/EGtba04-275KdqfkppanHenry County Hospital on above:Order Comment: Specimen Type: BLOOD SPECIMENOrdering Facility: [facility] Address:[address] [place], [place] [address]Performed By: #### 09642-1 ####[facility] LABCLIA [id number] [place] [address]HOI [Catalytic activity/Vol]15 U/LNormal7-38[facility] on above:Order Comment: Specimen Type: BLOOD SPECIMENOrdering Facility: [facility] Address:[address] [place], [place] [address]Performed By: #### 60341-2 ####[facility] LABCLIA [id number] RAMYA PENGANAVERDE VALLEY MEDICAL CENTERSHABANAMISSION [place], [place] [address]Lolbn gap [Moles/Vol]10 mmol/LNormal8-15[facility] on above:Order Comment: Specimen Type: BLOOD SPECIMENOrdering Facility: [facility] Address:[address] [place], [place] [address]Performed By: #### 88096- 8 ####[facility] LABCLIA [id number] RAMYA CARRILLOVERDE VALLEY MEDICAL CENTERMARYCRUZFORT [place], [place] [address]EAH [Catalytic activity/Vol]14 U/LTqwbkr59-20RitblogvuHenry County Hospital on above:Order Comment: Specimen Type: BLOOD SPECIMENOrdering Facility: [facility] Address:[address] [place], [place] [address]Performed By: #### 23954-5 ####[facility] LABCLIA [id number] RAMYA PENGANAVERDE [facility] MEDICAL CENTERMARYCRUZFORT [place], [place] [address]Xqyjjieoy [Mass/Vol]0.4 mg/dLNormal0.2-1.3CMagruder Memorial Hospital on above:Order Comment: Specimen Type: BLOOD SPECIMENOrdering Facility: [facility] Address:[address] [place], [place] [address]Performed By: #### 87781- 8 ####[facility] LABCLIA [id number] SABRINA DANISH CARRILLOVERDE VALLEY MEDICAL CENTERMARYCRUZF[place], [place] [address]Nxivdsm [Mass/Vol]9.6 mg/dLNormal8.5-10.2CMagruder Memorial Hospital on above:Order Comment: Specimen Type: BLOOD SPECIMENOrdering Facility: [facility] Address:[address] [place], [place] [address]Performed By: #### 90570-4 ####[facility] LABCLIA [id number] [place], [place] [address]Fukkfkpk [Moles/Vol]99 mmol/L Awrjgg08-116CnnamwnlqHenry County Hospital on above:Order Comment: Specimen Type: BLOOD SPECIMENOrdering Facility: [facility] Address:[address] [place], [place] [address]Performed By: #### 63913-8 ####[facility] LABCLIA [id number] [place] [address] CO2 [Moles/Vol]28 mmol/OBzrzzf52-58QojzyysdlHenry County Hospital on above: Order Comment: Specimen Type: BLOOD SPECIMENOrdering Facility: [facility] Address:[address] [place], [place] [address]Performed By: #### 23920- 8 ####[facility] LABCLIA [id number] [place], [place] [address]Togyfrwwmn [Mass/Vol]0.76 mg/dLNormal0.58-0.96[facility] on above:Order Comment: Specimen Type: BLOOD SPECIMENOrdering Facility: [facility] Address:[address] [place], [place] [address]Performed By: #### 58444-2 ####[facility] LABCLIA [id number] [place], [place] [address]Eqfezafrsj and Glomerular filtration rate.predicted panel (S/P/Bld)90 mL/min/1.73m???Normal>=60 [facility] on above:Order Comment: Specimen Type: BLOOD SPECIMENOrdering Facility: [facility] Address:[address] [place], [place] [address]Result Comment: Estimated Glomerular Filtration Rate (eGFR) is calculated using the 2020 CKD-EPI creatinine equation. This equation utilizes serum creatinine, sex, and age as parameters. The creatinine assay has traceable calibration to isotope dilution-mass spectrometry. Refer to KDIGO guidelines for clinical interpretation. In patients with unstable renal function, e.g. those with acute kidney injury, the eGFR may not accurately reflect actual GFR.Performed By: #### 33063-3 ####[facility] LABCLIA [id number] [place], [place] [address]Ayqpwta [Mass/Vol]112 mg/tDVxbf65-53WnfdgehinHenry County Hospital on above:Order Comment: Specimen Type: BLOOD SPECIMENOrdering Facility: [facility] Address:[address] [place] [address]Txbggc Comment: The [place] Diabetes Association (ADA) provides guidance for cutoff values for fast ing glucose and random glucose. The ADA defines fasting as no [...] Standards of Medical Care in Diabetes 2016, [place] [employer]. Diabetes Care. 2016.39(Suppl 1).Performed By: #### 94405-3 ####[facility] LABCLIA [id number] [place], [place] [address]Dwejbmxrg [Moles/Vol]4.6 mmol/LNormal3.7-5.1CMagruder Memorial Hospital on above:Order Comment: Specimen Type: BLOOD SPECIMENOrdering Facility: [facility] Address:[address] [place] [address]Hchmtpuru By: #### 88374-5 ####[facility] LABCLIA [id number] [place], [place] [address]Htudshs [Mass/Vol]7.3 g/dLNormal6.3-8.0[facility] on above:Order Comment: Specimen Type: BLOOD SPECIMENOrdering Facility: [facility] Address:[address] [place], [place] [address]Performed By: #### 98915- 8 ####[facility] LABCLIA [id number] [place], [place] [address]Idjnec [Moles/Vol]137 mmol/ROivpyq408-039ElqovcgkuHenry County Hospital on above:Order Comment: Specimen Type: BLOOD SPECIMENOrdering Facility: [facility] Address:[address] [place], [place] [address]Performed By: #### 73442-5 ####[facility] LABCLIA [id number] [place], [place] [address]Dcai nitrogen [Mass/Vol]12 mg/dLNormal7-21[facility] on above:Order Comment: Specimen Type: BLOOD SPECIMENOrdering Facility: [facility] Address:[address] [place], [place] [address]Performed By: #### 61903-9 ####[facility] LABCLIA [id number] [place], [place] [address]SE CHEST WO IVCONon [id number] CHEST WO IVCON* * *Final Report* * * DATE OF EXAM: Oct 30 2024 3:20PM [facility] 0541 - CT CHEST WO IVCON / PROCEDURE REASON: multiple diagnoses * * * * Physician Interpretation * * * * RESULT: EXAMINATION: CHEST CT WITHOUT CONTRAST CLINICAL HISTORY: Pulmonary nodules, history of glioblastoma multiforme Technique: Spiral CT acquisition of the chest from the thoracic inlet to the upper abdomen without contrast. MQ: CTCWOR_4 CT Dose-Length Product: 366 mGy*cm CT Dose Reduction Employed: Automated exposure control (AEC) Comparison: None RESULT: Limitations: None. Lines, tubes, and devices: None. Lung parenchyma , airways, and pleural space: No consolidative process or pleural effusion. The trachea and major airways appear. Subsegmental areas of atelectasis/scarring within the left lingular and right middle lobe are appreciated. Scattered calcified granulomata are identified. A few scattered noncalcified pulmonary nodules measuring 3 mm or less are appreciated: For example, on the right, image 47, series 4. On the left, images 23, 47, 88, series 4. Lower neck, lymph nodes, and mediastinum: 7 mm peripherally calcified left lobe thyroid hypodensity is appreciated. Otherwise, the thyroid gland appears unremarkable. No substantial supraclavicular or axillary lymphadenopathy is appreciated. No substantial mediastinal or hilar adenopathy is identified. Heart, pericardium, and thoracic vessels: The thoracic aorta is normal in caliber. Coronary calcification is appreciated. No substantial pericardial effusion. Bones/Soft Tissues: No osseous destructive process. Upper Abdomen: Diffuse metastatic steatosis is suspected. Low-attenuation nodular thickening of the adrenal glands bilaterally is appreciated, likely related to adenoma/adenomatous hyperplasia. Religious Education Director (topogram) images: No additional findings. IMPRESSION: 1. Bilateral subcentimeter pulmonary nodules, as above. Given the patient's history, correlation with follow-up examinations is recommended to assess for stability. 2. No substantial intrathoracic adenopathy is identified. Transcribe Date/Time: Oct 31 2024 9:12A Dictated by: NATALIE HOLLAND MD This examination was interpreted and the report reviewed and electronically signed by: NATALIE HOLLAND MD on Oct 31 2024 12:08PM EST Thank you for allowing us to participate in the care of your patient. Should there be any questions regarding this interpretation, please call [phone]. If you are unable to reach us at the number above, please feel free to contact [facility] eRadiology at [phone]. [id number] Health Anderson HospitalCNPNon [id number] Telephone (MANUELA) RAEANN ECKERT ([id number]) 1965 F Date Time Provider Department 10/12/24 EMMA SLATER During your visit today, we recorded the following information about you: Emma Slater LSW 10/12/2024 2:49 PM Signed SOCIAL WORK FOLLOW UP NOTE: [facility]CER CENTER Date of service:10/12/24 TOPICS ADDRESSED: finances and community resources PLAN: Continue follow up as needed Assigned SW listed in Care Team tab: Yes SW spoke with Mariaa from the [facility]. Patient is approved for the $500 Cancer Care Fund and can use the fund to pay for the prescription that his waiting for her at [facility]. Mariaa requested that the [facility] fax over an invoice for the prescription cost. SW shared this with the [facility] team. KWAME Navarro-Love Allergies As of Date: 10/12/2024 Noted Allergy Reaction HYDROCODONE 11/22/2023 4 - Hives Comments: HIVES, itching, red rash all over body. OXYCODONE 11/08/2023 4 - Hives 2 - Rash Date Reviewed: 10/10/2024 Reviewed by: Toña Franklin PA-C - Fully Assessed Prescriptions as of 10/12/2024 - temozolomide (TEMODAR) 180 mg capsule Take 2 capsules (360 mg) by mouth once daily for 5 days. - levETIRAcetam (KEPPRA) 500 mg tablet Take 1 tablet by mouth two times a day. - Acetaminophen 500 mg cap Take by mouth. - fluticasone propionate (FLONASE NASAL) Use in the nose. - aspirin, enteric coated (ASPIRIN, ENTERIC COATED) 81 mg EC tablet Take 81 mg by mouth once daily. - atenolol (TENORMIN) 50 mg tablet Take 50 mg by mouth once daily. For 30 days - atorvastatin (LIPITOR) 80 mg tablet Take 80 mg by mouth once daily. - busPIRone (BUSPAR) 10 mg tablet Take 10 mg by mouth two times a day. - citalopram (CELEXA) 40 mg tablet Take 40 mg by mouth once daily. For 30 days - ezetimibe (ZETIA) 10 mg tablet Take 10 mg by mouth once daily. - omeprazole (PRILOSEC) 20 mg capsule Take 20 mg by mouth once daily. - lisinopril (ZESTRIL) 5 mg tablet Take 5 mg by mouth once daily. For 30 days - ondansetron orally disintegrating (ZOFRAN ODT) 4 mg disintegrating tablet Take 8 mg by mouth every 8 hours as needed. - prochlorperazine (COMPAZINE) 10 mg tablet Take 10 mg by mouth every 8 hours as needed. - senna-docusate (SENNA-S) 8.6-50 mg per tablet Take 1 tablet by mouth two times a day. Problem List As Of Date 10/12/2024 Noted Resolved GBM (glioblastoma multiforme) (HCC) [C71.9] 09/11/2024 Pulmonary nodules/lesions, multiple [R91.8] 09/11/2024 Encounter Status:Closed by EMMA SLATER on 10/12/24[facility] [id number] (HEMASA) RAEANN ECKERT ([id number]) 1965 F Date Time Provider Department 10/11/24 EMMA SLATER During your visit today, we recorded the following information about you: Emma Slater LSW 10/11/2024 4:37 PM Addendum SOCIAL WORK FOLLOW UP NOTE: CANCER CENTER Date of service:10/11/24 Raeann Eckert is being seen for a follow up social work visit. Today's visit includes: patient TOPICS ADDRESSED: community resources and financial assistance for a prescription PLAN: Assist with financial support applications, Continue follow up as needed , and Referral to community resource Assigned AYAKA listed in Care Team tab: Yes Patient called and left asking for an update her application with the [facility] Cancer Care Fund. SW called the [employer] and they are waiting for proof of residency in [place] before they can process her application. [facility] said they called the Patient to discuss this, but was unable to reach her. SW spoke with Patient regarding the above. Patient emailed SW a copy of her rent/lease agreement. SW faxed this documentation to the [facility]. [facility] was unable to see the fax so this SW emailed them the documents. Awaiting clearance from [facility] to proceed with prescription assistance request. MARCELINO Navarro Allergies As of Date: 10/11/2024 Noted Allergy Reaction HYDROCODONE 11/22/2023 4 - Hives Comments: HIVES, itching, red rash all over body. OXYCODONE 11/08/2023 4 - Hives 2 - Rash Date Reviewed: 10/10/2024 Reviewed by: Toña Franklin PA-C - Fully Assessed Prescriptions as of 10/11/2024 - temozolomide (TEMODAR) 180 mg capsule Take 2 capsules (360 mg) by mouth once daily for 5 days. - levETIRAcetam (KEPPRA) 500 mg tablet Take 1 tablet by mouth two times a day. - Acetaminophen 500 mg cap Take by mouth. - fluticasone propionate (FLONASE NASAL) Use in the nose. - aspirin, enteric coated (ASPIRIN, ENTERIC COATED) 81 mg EC tablet Take 81 mg by mouth once daily. - atenolol (TENORMIN) 50 mg tablet Take 50 mg by mouth once daily. For 30 days - atorvastatin (LIPITOR) 80 mg tablet Take 80 mg by mouth once daily. - busPIRone (BUSPAR) 10 mg tablet Take 10 mg by mouth two times a day. - citalopram (CELEXA) 40 mg tablet Take 40 mg by mouth once daily. For 30 days - ezetimibe (ZETIA) 10 mg tablet Take 10 mg by mouth once daily. - omeprazole (PRILOSEC) 20 mg capsule Take 20 mg by mouth once daily. - lisinopril (ZESTRIL) 5 mg tablet Take 5 mg by mouth once daily. For 30 days - ondansetron orally disintegrating (ZOFRAN ODT) 4 mg disintegrating tablet Take 8 mg by mouth every 8 hours as needed. - prochlorperazine (COMPAZINE) 10 mg tablet Take 10 mg by mouth every 8 hours as needed. - senna-docusate (SENNA-S) 8.6-50 mg per tablet Take 1 tablet by mouth two times a day. Problem List As Of Date 10/11/2024 Noted Resolved GBM (glioblastoma multiforme) (HCC) [C71.9] 09/11/2024 Pulmonary nodules/lesions, multiple [R91.8] 09/11/2024 Encounter Status:Closed by EMMA SLATER on 10/11/24[facility] W Auto Differential panel (Bld)on [id number] (Bld) [#/Vol]0.04 10*3/uLNormal<0.11CMagruder Memorial Hospital on above:Order Comment: Specimen Type: BLOOD SPECIMENOrdering Facility: [facility] Address:[address] [place], [place] [address]Performed By: #### 73565-8 ####[facility] LABCLIA [id number] [place], [place] [address]Rqrgzxsyw/100 WBC (Bld)0.9 %NormalHenry County Hospital on above:Order Comment: Specimen Type: BLOOD SPECIMENOrdering Facility: [facility] Address:[address] [place], [place] [address]Performed By: #### 54892-3 ####[facility] LABCLIA [id number] [place], [place] [address]Hadidabpdzvw cell count method Nom (Bld)AutoNormalCMagruder Memorial Hospital on above:Order Comment: Specimen Type: BLOOD SPECIMENOrdering Facility: [facility] Address:[address] [place], [place] [address]Performed By: #### 03163-1 ####[facility] LABCLIA [id number] [place], [place] [address]Kdosjfceqbz (Bld) [#/Vol]0.12 10*3/uLNormal<0.46[facility] on above:Order Comment: Specimen Type: BLOOD SPECIMENOrdering Facility: [facility] Address:[address] [place], [place] [address]Performed By: #### 61110-1 ####[facility] LABCLIA [id number] [place], [place] [address]Spkaattvehw/100 WBC (Bld)2.8 %NormalHenry County Hospital on above:Order Comment: Specimen Type: BLOOD SPECIMENOrdering Facility: [facility] Address:[address] [place], [place] [address]Performed By: #### 69494-3 ####[facility] LABIA [id number] [place], [place] [address]Ltxkkpzfgwv distribution width (RBC) [Ratio]13.7 %Normal 11.5-15.0[facility] on above:Order Comment: Specimen Type: BLOOD SPECIMENOrdering Facility: [facility] Address:[address] [place], [place] [address]Performed By: #### 86141-8 ####[facility] LABIA [id number] [place] [address] Hematocrit (Bld) [Volume fraction]38.4 %Tokunc12.0-46.0[facility] on above:Order Comment: Specimen Type: BLOOD SPECIMENOrdering Facility: [facility] Address:[address] [place], [place] [address]Performed By: #### 32355-3 ####[facility] LABIA [id number] [place], [place] [address]Yxehuvxjgp (Bld) [Mass/Vol]13.0 g/dRSoihmu84.5-15.5CMagruder Memorial Hospital on above:Order Comment: Specimen Type: BLOOD SPECIMENOrdering Facility: [facility] Address:[address] [place], [place] [address]Performed By: #### 22058-6 ####[facility] LABIA [id number] [place], [place] [address]Dhgunqio granulocytes (Bld) [#/Vol]10*3/uLNormal<0.10 [facility] on above:Order Comment: Specimen Type: BLOOD SPECIMENOrdering Facility: [facility] Address:[address] [place], [place] [address]Performed By: #### 64229-8 ####[facility] LABCLIA [id number] [place], [place] [address]Fmszlzep granulocytes/100 WBC (Bld)0.2 %NormalHenry County Hospital on above: Order Comment: Specimen Type: BLOOD SPECIMENOrdering Facility: [facility] Address:[address] [place], [place] [address]Performed By: #### 27487- 8 ####[facility] LABCLIA [id number] [place], [place] [address]Dgojqdabfez (Bld) [#/Vol]0.79 10*3/uLLow1.00-4.00 [facility] on above:Order Comment: Specimen Type: BLOOD SPECIMENOrdering Facility: [facility] Address:[address] [place], [place] [address]Performed By: #### 71812-9 ####[facility] LABIA [id number] [place], [place] [address]Sakzikbbmem/100 WBC (Bld)18.7 %NormalHenry County Hospital on above:Order Comment: Specimen Type: BLOOD SPECIMENOrdering Facility: [facility] Address:[address] [place], [place] [address]Performed By: #### 67095-4 ####[facility] LABIA [id number] [place], [place] [address]JQG (RBC) [Entitic mass]32.3 vaPqizih57.0-34.0[facility] on above:Order Comment: Specimen Type: BLOOD SPECIMENOrdering Facility: [facility] Address:[address] [place], [place] [address]Performed By: #### 65714-7 ####[facility] LABIA [id number] [place], [place] [address]HASU (RBC) [Mass/Vol]33.9 g/dRVohmib99.5-36.0[facility] on above: Order Comment: Specimen Type: BLOOD SPECIMENOrdering Facility: [facility] Address:[address] [place], [place] [address]Performed By: #### 82392- 8 ####[facility] LABCLIA [id number] [place], [place] [address]HNG (RBC) [Entitic vol]95.3 sGKngprc17.0-100.0[facility] on above:Order Comment: Specimen Type: BLOOD SPECIMENOrdering Facility: [facility] Address:[address] [place], [place] [address]Performed By: #### 12234-2 ####[facility] LABCLIA [id number] [place], [place] [address]Mcfbrygor (Bld) [#/Vol]0.31 10*3/uLNormal<0.87[facility] on above:Order Comment: Specimen Type: BLOOD SPECIMENOrdering Facility: [facility] Address:[address] [place], [place] [address]Performed By: #### 43103- 8 ####[facility] LABCLIA [id number] [place], [place] [address]Qtfauslcc/100 WBC (Bld)7.3 %NormalHenry County Hospital on above:Order Comment: Specimen Type: BLOOD SPECIMENOrdering Facility: [facility] Address:[address] [place], [place] [address]Performed By: #### 08197-7 ####[facility] LABCLIA [id number] [place], [place] [address]Pbhymuoncwo (Bld) [#/Vol]2.96 10*3/uLNormal1.45-7.50[facility] on above:Order Comment: Specimen Type: BLOOD SPECIMENOrdering Facility: [facility] Address:[address] [place], [place] [address]Performed By: #### 06975-6 ####[facility] LABCLIA [id number] [place], [place] [address]Jezdrymvykw/100 WBC (Bld)70.1 %NormalHenry County Hospital on above:Order Comment: Specimen Type: BLOOD SPECIMENOrdering Facility: [facility] Address:[address] [place], [place] [address]Performed By: #### 45091-8 ####[facility] LABCLIA [id number] [place], [place] [address]Wryxpcfpu RBC (Bld) [#/Vol] 10*3/uLNormal<0.01[facility] on above:Order Comment: Specimen Type: BLOOD SPECIMENOrdering Facility: [facility] Address:[address] [place], [place] [address]Performed By: #### 56845-8 ####[facility] LABIA [id number] [place], [place] [address]Eejkfgxpy RBC/100 WBC (Bld) [Ratio]0.0 /100 WBCNormal [facility] on above:Order Comment: Specimen Type: BLOOD SPECIMENOrdering Facility: [facility] Address:[address] [place], [place] [address]Performed By: #### 88087-0 ####[facility] LABIA [id number] [place], [place] [address]Eiuvonmd mean volume (Bld) [Entitic vol]8.7 fLLow9.0-12.7CMagruder Memorial Hospital on above:Order Comment: Specimen Type: BLOOD SPECIMENOrdering Facility: [facility] Address:[address] [place], [place] [address]Performed By: #### 87297-3 ####[facility] LABIA [id number] [place], [place] [address]Mrknsybpt (Bld) [#/Vol]148 10*3/lRZzu967-324UgnilrorwHenry County Hospital on above:Order Comment: Specimen Type: BLOOD SPECIMENOrdering Facility: [facility] Address:[address] [place], [place] [address]Performed By: #### 23794-0 ####[facility] LABCLIA [id number] [place], [place] [address]EHM (Bld) [#/Vol]4.03 10*6/uLNormal3.90-5.20[facility] on above: Order Comment: Specimen Type: BLOOD SPECIMENOrdering Facility: [facility] Address:[address] [place], [place] [address]Performed By: #### 42425- 8 ####[facility] LABCLIA [id number] [place], [place] [address]QSM (Bld) [#/Vol]4.23 10*3/uLNormal3.70-11.00[facility] on above:Order Comment: Specimen Type: BLOOD SPECIMENOrdering Facility: [facility] Address:[address] [place], [place] [address]Performed By: #### 24261-0 ####[facility] LABCLIA [id number] [place], [place] [address]FBYJPOed [id number] (SP) Office (HEMASA) RAEANN ECKERT ([id number]) 1965 F Date Time Provider Department 10/10/24 11:30 AM TOÑA FRANKLIN During your visit today, we recorded the following information about you: Temperature Pulse Respiration Blood pressure 97 degrees 85/minute 16/minute 120/80 Weight 100.8 kg Toña Franklin PA-C 10/10/2024 1:03 PM Signed NAME: Raeann Eckert CLINIC NO.: [id number] DATE OF SERVICE: October 10, 2024 (Shanti) Some elements in this clinic note that are critical to medical decision making have been carefully reviewed and included from a prior clinic note dated: September 11, 2024 (Jaan) Referring Provider: Self Referred Additional Clinicians involved in Raeann Eckert's care: DIAGNOSIS: Gliosarcoma ASSESSMENT: 58 year old woman who presented with mental status changes in November 2024 and was found to have a right partietal lobe lesion with vasogenic edema. 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 She is currently due to start C5 and was released from [place] to return back to her home in [place]. PLAN: C6 Temodar start tomorrow - Increase dose to 360mg, D1-5 q 28 days Do not start next cycle (C7) until released by physician during follow up appointment RTC on 11/07/[address] Labs [address] Chest to monitor pulmonary nodules -scheduled 10/30/2024, just prior to C7 - HPI: CASE HISTORY: Reverse Chronological Order 10/10/2024 - start C6 Temodar- 360 mg on D1-5 q 28days 09/12/2024 - Start C5 Temodar - increase to 360mg on D1-5 q 28 days 08/13/2024-08/17/2024 - C4 D1-5 q 28 Temodar 07/27/2024 - MRI Brain: Postsurgical changes of prior right parietal craniotomy and mass resection. Slight interval increase in surrounding hyperintensity with new mildly irregular enhancement along the medial margin of the resection cavity. Findings may relate to evolving posttreatment change and/or recurrent or progressive disease. Recommend continued attention on follow-up. 07/16/2024-07/20/2024 - C3 Temodar 06/19/2024-06/23/2024 - C2 Temodar 05/30/2024 - MRI Brain: Postsurgical changes of prior right parietal mass resection. No findings suggestive of recurrent or progressive disease. Mild increase in hyperintensity along the anterior and superior margins of the resection cavity may relate to evolving posttreatment changes. 05/21/2024-05/25/2024 - C1 adjuvant Temodar 320mg 5 days on (23 days off) 04/02/2024 - MRI Brain: Postoperative changes of right parietal GBM resection, without evidence of residual or recurrent tumor. Expected evolution of postoperative changes with significant interval decrease in size of resection cavity and surrounding vasogenic white matter edema in the right parietal lobe. Mild burden of presumed chronic small vessel ischemic white matter disease. 01/12/2024-03/08/2024 - Concurrent Temodar per Dr. Rebecca Oh at [facility] - held 02/23-03/01 due to low platelets 01/12/2024-03/08/2024 - 30 fractions concurrent radiation: per Dr. Alexandr Field at [facility] 01/04/2024 - Repeated sim 12/21/2023 - Scheduled to start radiation but cancelled to reportedly treat locally 12/09/2023 - Completed radiation sim 11/23/2023 - CT Brain AND MRI Brain: Post resection of a high-grade glioma from the right parietal region. This study will serve as a baseline for future follow-up. 11/23/2023 - Right Craniotomy - Case #: [id number]: Dr. Raphael Mckee at [facility] A-B. 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 Endothelial proliferation and necrosis are present. Immunohistochemistry performed on Block B2 demonstrate the lesional cells to be POSITIVE for CD10, focal GFAP, focal Olig2, and ATRX (retained, wild-type), while being NEGATIVE for IDH1 (R132H wild-type) and BRAF. P53 is overexpressed. PHH3 highlights mitotic figures up to 30/10 HPF and the Ki-67 proliferation index is up to approximately approximately 40%. Addendum: Negative IDH1 (R132H) immunohistochemistry is considered equivalent to KYF-zvwf-zdcp status in this age group, particularly in an ATRX-retained tumor. Additional studies performed: (more content not included)...NormalMercy Health Anderson HospitalCNPNon 10-10-2024 CNPNTelephone (HEMASA) RAEANN ECKERT ([id number]) 1965 F Date Time Provider Department 10/10/24 EMMA SLATER During your visit today, we recorded the following information about you: Emma Slater LSW 10/11/2024 4:34 PM Addendum Social Work Problem Referral Note INFORMATION/REFERRAL : Raeann Eckert 58 year old female was referred by Shola Jacobs to [facility] Social Work for the following reason(s): financial assistance - meals, parking, etc. PERSONS INTERVIEWED: patient INTERVENTION: Information AND Referral Service Co-ordination Affect/Mood: The patient is noted as appropriate IDENTIFIED PROBLEMS/NEEDS: Financial Intervention/Referral to be provided:Information for community resources/agencies IMPRESSION/PLAN:Referral received to assist Patient with financial resources to cover the cost of a prescription. AYAKA called Patient to discuss. Patient's Medicaid coverage termed on 10/06 and she is in the process of re-applying. Patient was agreeable to apply for the [facility] Care Fund. SW completed the application and faxed it. SW called [employer] [phone] and explained that the Patient's medication is here at [facility] and she cannot afford it. [employer] will process the application and if approved they will cover the medication costs. Awaiting a determination call from the [employer]. Assigned SW listed in Care Team tab: Yes MARCELINO Navarro Allergies As of Date: 10/10/2024 Noted Allergy Reaction HYDROCODONE 11/22/2023 4 - Hives Comments: HIVES, itching, red rash all over body. OXYCODONE 11/08/2023 4 - Hives 2 - Rash Date Reviewed: 10/10/2024 Reviewed by: Toña Franklin PA-C - Fully Assessed Prescriptions as of 10/11/2024 - temozolomide (TEMODAR) 180 mg capsule Take 2 capsules (360 mg) by mouth once daily for 5 days. - levETIRAcetam (KEPPRA) 500 mg tablet Take 1 tablet by mouth two times a day. - Acetaminophen 500 mg cap Take by mouth. - fluticasone propionate (FLONASE NASAL) Use in the nose. - aspirin, enteric coated (ASPIRIN, ENTERIC COATED) 81 mg EC tablet Take 81 mg by mouth once daily. - atenolol (TENORMIN) 50 mg tablet Take 50 mg by mouth once daily. For 30 days - atorvastatin (LIPITOR) 80 mg tablet Take 80 mg by mouth once daily. - busPIRone (BUSPAR) 10 mg tablet Take 10 mg by mouth two times a day. - citalopram (CELEXA) 40 mg tablet Take 40 mg by mouth once daily. For 30 days - ezetimibe (ZETIA) 10 mg tablet Take 10 mg by mouth once daily. - omeprazole (PRILOSEC) 20 mg capsule Take 20 mg by mouth once daily. - lisinopril (ZESTRIL) 5 mg tablet Take 5 mg by mouth once daily. For 30 days - ondansetron orally disintegrating (ZOFRAN ODT) 4 mg disintegrating tablet Take 8 mg by mouth every 8 hours as needed. - prochlorperazine (COMPAZINE) 10 mg tablet Take 10 mg by mouth every 8 hours as needed. - senna-docusate (SENNA-S) 8.6-50 mg per tablet Take 1 tablet by mouth two times a day. Problem List As Of Date 10/10/2024 Noted Resolved GBM (glioblastoma multiforme) (HCC) [C71.9] 09/11/2024 Pulmonary nodules/lesions, multiple [R91.8] 09/11/2024 Encounter Status:Closed by EMMA SLATER on 10/11/24[facility] CNPNTelephone (SDOPRX) BABARRAEANN AMATO ([id number]) 1965 F Date Time Provider Department 10/10/24 MARICRUZ BAILEY SDOPRX During your visit today, we recorded the following information about you: Maricruz Bailey [facility] 10/10/2024 12:28 PM Signed Raeann's Medicaid terminated 10/06/24 and she is in the process of trying to get it reinstated. She is due for a fill of her oral chemotherapy. The cost of this on a discount card is $220.40. She currently is living in [facility]. Are you able to see if any of our local organization would be able to help cover this 1 month while she gets her insurance reinstated? Best number to reach her at with any questions is [phone]. Let me know, Thank you Shola Bailey, PharmD, BCOP Emma Slater LSW 10/10/2024 2:10 PM Signed Called [facility]. SW completed an intake application for the [employer] Fund. [facility] will process the application and call this SW back with the whether or not it was approved for $500. MARCELINO Navarro Allergies As of Date: 10/10/2024 Noted Allergy Reaction HYDROCODONE 11/22/2023 4 - Hives Comments: HIVES, itching, red rash all over body. OXYCODONE 11/08/2023 4 - Hives 2 - Rash Date Reviewed: 10/10/2024 Reviewed by: Shanti, Toña M, PA-C - Fully Assessed Reason for Visit: Patient Update [1234] Cmt: No prescription coverage Prescriptions as of 10/15/2024 - temozolomide (TEMODAR) 180 mg capsule Take 2 capsules (360 mg) by mouth once daily for 5 days. - levETIRAcetam (KEPPRA) 500 mg tablet Take 1 tablet by mouth two times a day. - Acetaminophen 500 mg cap Take by mouth. - fluticasone propionate (FLONASE NASAL) Use in the nose. - aspirin, enteric coated (ASPIRIN, ENTERIC COATED) 81 mg EC tablet Take 81 mg by mouth once daily. - atenolol (TENORMIN) 50 mg tablet Take 50 mg by mouth once daily. For 30 days - atorvastatin (LIPITOR) 80 mg tablet Take 80 mg by mouth once daily. - busPIRone (BUSPAR) 10 mg tablet Take 10 mg by mouth two times a day. - citalopram (CELEXA) 40 mg tablet Take 40 mg by mouth once daily. For 30 days - ezetimibe (ZETIA) 10 mg tablet Take 10 mg by mouth once daily. - omeprazole (PRILOSEC) 20 mg capsule Take 20 mg by mouth once daily. - lisinopril (ZESTRIL) 5 mg tablet Take 5 mg by mouth once daily. For 30 days - ondansetron orally disintegrating (ZOFRAN ODT) 4 mg disintegrating tablet Take 8 mg by mouth every 8 hours as needed. - prochlorperazine (COMPAZINE) 10 mg tablet Take 10 mg by mouth every 8 hours as needed. - senna-docusate (SENNA-S) 8.6-50 mg per tablet Take 1 tablet by mouth two times a day. Problem List As Of Date 10/10/2024 Noted Resolved GBM (glioblastoma multiforme) (HCC) [C71.9] 09/11/2024 Pulmonary nodules/lesions, multiple [R91.8] 09/11/2024 Encounter Status:Closed by MARICRUZ BAILEY on 10/15/24NormalCKettering Memorial Hospitalprehensive metabolic 2000 panelon [id number] [Mass/Vol]3.9 g/dLNormal3.9-4.9CMagruder Memorial Hospital on above:Order Comment: Specimen Type: BLOOD SPECIMENOrdering Facility: [facility] Address:[address] [place], [place] [address]Performed By: #### 92814-9 ####[facility] LABCLIA [id number] [address] [place] [address] [place] AMERICAALP [Catalytic activity/Vol]130 U/ITxxc81-588XnkqwqcanHenry County Hospital on above:Order Comment: Specimen Type: BLOOD SPECIMENOrdering Facility: [facility] Address:[address] [place], [place] [address]Performed By: #### 98537-1 ####[facility] LABCLIA [id number] [address] [place] [address] [place] AMERICAALT [Catalytic activity/Vol]19 U/LNormal7-38[facility] on above:Order Comment: Specimen Type: BLOOD SPECIMENOrdering Facility: [facility] Address:[address] [place], [place] [address]Performed By: #### 29967-6 ####[facility] LABCLIA [id number] [address] [place] [address] [place] AMERICAAnion gap [Moles/Vol]15 mmol/LNormal8-15[facility] on above:Order Comment: Specimen Type: BLOOD SPECIMENOrdering Facility: [facility] Address:[address] [place], [place] [address] Performed By: #### 06813-8 ####[facility] LABCLIA [id number] [facility]K [address] [place] [address] [place] AST [Catalytic activity/Vol]20 U/HOxpgdj19-60ErrctuhgaHenry County Hospital on above:Order Comment: Specimen Type: BLOOD SPECIMENOrdering Facility: [facility] Address:[address] [place], [place] [address] Performed By: #### 23610-6 ####[facility] LABCLIA [id number] [address] [place] [address] [place] Bilirubin [Mass/Vol]0.4 mg/dLNormal0.2-1.3CMagruder Memorial Hospital on above:Order Comment: Specimen Type: BLOOD SPECIMENOrdering Facility: [facility] Address:[address] [place], [place] [address]Performed By: #### 33447-0 ####[facility] LABCLIA [id number] [place] [address] [place] AMERICACalcium [Mass/Vol]9.6 mg/dLNormal8.5-10.2CMagruder Memorial Hospital on above:Order Comment: Specimen Type: BLOOD SPECIMENOrdering Facility: [facility] Address:[address] [place], [place] [address]Performed By: #### 79695-6 ####[facility] LABCLIA [id number] [place] [address] [place] AMERICAChloride [Moles/Vol]102 mmol/L Akrsme41-205GqyriaxyhHenry County Hospital on above:Order Comment: Specimen Type: BLOOD SPECIMENOrdering Facility: [facility] Address:[address] [place], [place] [address]Performed By: #### 80794-9 ####[facility] LABCLIA [id number] [place] [address] [place] AMERICACO2 [Moles/Vol]22 mmol/WGumbif85-72NdgtdfdjeHenry County Hospital on above:Order Comment: Specimen Type: BLOOD SPECIMENOrdering Facility: [facility] Address:[address] [place], [place] [address]Performed By: #### 24397-3 ####[facility] LABCLIA [id number] [place] [id number] [place] Creatinine [Mass/Vol]0.81 mg/dLNormal0.58-0.96[facility] on above:Order Comment: Specimen Type: BLOOD SPECIMENOrdering Facility: [facility] Address:[address] [place] [address] Performed By: #### 18753-4 ####[facility] LABCLIA [id number] [address] OF [place] Creatinine and Glomerular filtration rate.predicted panel (S/P/Bld)84 mL/min/1.73m???Normal>=60[facility] on above:Order Comment: Specimen Type: BLOOD SPECIMENOrdering Facility: [facility] Address:[address] [place], [place] [address]Result Comment: Estimated Glomerular Filtration Rate (eGFR) is calculated using the 2020 CKD-EPI cre atinine equation. This equation utilizes serum creatinine, sex, and age as parameters. The creatinine assay has traceable calibration to isotope dilution- mass spectrometry. Refer to KDIGO guidelines for clinical interpretation. In patients with unstable renal function, e.g. those with acute kidney injury, the eGFR may not accurately reflect actual GFR.Performed By: #### 28474-4 ####[facility] LABCLIA [id number] [place] [address] [place] AMERICAGlucose [Mass/Vol]141 mg/dLHigh 74-99[facility] on above:Order Comment: Specimen Type: BLOOD SPECIMENOrdering Facility: [facility] Address:[address] [place], [place] [address]Result Comment: The [place] Diabetes Association (ADA) provides guidance for cutoff values for fasting glucose and random glucose. The ADA defines fasting as no [...] Standards of Medical Care in Diabetes 2016, [place] Diabetes Association. Diabetes Care. 2016.39(Suppl 1).Performed By: #### 30224-0 ####[facility] LABCLIA [id number] [place] [address] [place] AMERICAPotassium [Moles/Vol]4.2 mmol/L Normal3.7-5.1CMagruder Memorial Hospital on above:Order Comment: Specimen Type: BLOOD SPECIMENOrdering Facility: [facility] Address:[address] [place], [place] [address]Performed By: #### 94819-0 ####[facility] LABBRIGHTLOOK [facility] [id number] [place] [address] [place] AMERICAProtein [Mass/Vol]7.1 g/dLNormal6.3-8.0[facility] on above:Order Comment: Specimen Type: BLOOD SPECIMENOrdering Facility: [facility] Address:[address] [place], [place] [address]Performed By: #### 51953-5 ####[facility] [id number] [place] [address] [place] Sodium [Moles/Vol]139 mmol/ZIwhowt426-585NjeozirtpHenry County Hospital on above:Order Comment: Specimen Type: BLOOD SPECIMENOrdering Facility: [facility] Address:[address] [place], [place] [address]Performed By: #### 48846-5 ####[facility] [id number] [place] [address] [place] AMERICAUrea nitrogen [Mass/Vol]13 mg/dLNormal7-21[facility] on above:Order Comment: Specimen Type: BLOOD SPECIMENOrdering Facility: [facility] Address:[address] [place], [place] [address]Performed By: #### 95411- 8 ####[facility] LABBRIGHTLOOK HOSPITAL [id number] [place] [id number] [place] AMERICACB W Auto Differential panel (Bld)on [id number] (Bld) [#/Vol]0.03 10*3/uLNormal<0.11CMagruder Memorial Hospital on above:Order Comment: Specimen Type: BLOOD SPECIMENOrdering Facility: [facility] Address:[address] [place], [place] [address]Performed By: #### 81278-7 ####[facility] LABCLIA [id number] [place], [place] [address]Arvnfnmzd/100 WBC (Bld)0.7 % NormalHenry County Hospital on above:Order Comment: Specimen Type: BLOOD SPECIMENOrdering Facility: [facility] Address:[address] [place], [place] [address]Performed By: #### 13910-6 ####[facility] LABCLIA [id number] [place] [address] Differential cell count method Nom (Bld)AutoNormalClevelAtrium Health Pineville [facility] Comment on above:Order Comment: Specimen Type: BLOOD SPECIMENOrdering Facility: [facility] Address:[address] [place] [address] Performed By: #### 69010-4 ####[facility] LABCLIA [id number] [place], [place] [address]Ffwdpgtbyfa (Bld) [#/Vol]0.14 10*3/uLNormal<0.46[facility] on above:Order Comment: Specimen Type: BLOOD SPECIMENOrdering Facility: [facility] Address:[address] [place], [place] [address]Performed By: #### 45526-0 ####[facility] LABCLIA [id number] [place], [place] [address]Dklozkgarbb/100 WBC (Bld)3.3 %NormalHenry County Hospital on above:Order Comment: Specimen Type: BLOOD SPECIMENOrdering Facility: [facility] Address:[address] [place], [place] [address]Performed By: #### 61894-3 ####[facility] LABCLIA [id number] [place], [place] [address]Tcwsebjcxtb distribution width (RBC) [Ratio]13.5 %Vwocqq56.5-15.0[facility] on above: Order Comment: Specimen Type: BLOOD SPECIMENOrdering Facility: [facility] Address:[address] [place], [place] [address]Performed By: #### 85469- 8 ####[facility] LABCLIA [id number] [place], [place] [address]Eoeuqpclrq (Bld) [Volume fraction]37.5 %Xwvfna55.0-46.0 [facility] on above:Order Comment: Specimen Type: BLOOD SPECIMENOrdering Facility: [facility] Address:[address] [place], [place] [address]Performed By: #### 66231-8 ####[facility] LABIA [id number] [place], [place] [address]Yafdsrsxgt (Bld) [Mass/Vol]12.8 g/mVCexxnr26.5-15.5CMagruder Memorial Hospital on above: Order Comment: Specimen Type: BLOOD SPECIMENOrdering Facility: [facility] Address:[address] [place], [place] [address]Performed By: #### 03433- 8 ####[facility] LABIA [id number] [place], [place] [address]Mnxesxjf granulocytes (Bld) [#/Vol]10*3/uLNormal<0.10 [facility] on above:Order Comment: Specimen Type: BLOOD SPECIMENOrdering Facility: [facility] Address:[address] [place], [place] [address]Performed By: #### 67561-9 ####[facility] LABIA [id number] [place], [place] [address]Wxoegmoj granulocytes/100 WBC (Bld)0.5 %NormalHenry County Hospital on above: Order Comment: Specimen Type: BLOOD SPECIMENOrdering Facility: [facility] Address:[address] [place], [place] [address]Performed By: #### 31792- 8 ####[facility] LABCLIA [id number] [place], [place] [address]Vhsnxrisjwi (Bld) [#/Vol]0.80 10*3/uLLow1.00-4.00 [facility] on above:Order Comment: Specimen Type: BLOOD SPECIMENOrdering Facility: [facility] Address:[address] [place], [place] [address]Performed By: #### 42611-4 ####[facility] LABCLIA [id number] [place], [place] [address]Ksbczylmeer/100 WBC (Bld)18.8 %NormalHenry County Hospital on above:Order Comment: Specimen Type: BLOOD SPECIMENOrdering Facility: [facility] Address:[address] [place], [place] [address]Performed By: #### 82854-7 ####[facility] LABCLIA [id number] [place], [place] [address]EOG (RBC) [Entitic mass]32.2 fsXlsnxz54.0-34.0[facility] on above:Order Comment: Specimen Type: BLOOD SPECIMENOrdering Facility: [facility] Address:[address] [place], [place] [address]Performed By: #### 13392-8 ####[facility] LABCLIA [id number] [place], [place] [address]DDQG (RBC) [Mass/Vol]34.1 g/gAQdmtly15.5-36.0[facility] on above: Order Comment: Specimen Type: BLOOD SPECIMENOrdering Facility: [facility] Address:[address] [place], [place] [address]Performed By: #### 45951- 8 ####[facility] LABCLIA [id number] [place], [place] [address]WKV (RBC) [Entitic vol]94.2 dZOyeyvn29.0-100.0[facility] on above:Order Comment: Specimen Type: BLOOD SPECIMENOrdering Facility: [facility] Address:[address] [place], [place] [address]Performed By: #### 92636-7 ####[facility] LABIA [id number] [place], [place] [address]Kafmxfvoq (Bld) [#/Vol]0.32 10*3/uLNormal<0.87[facility] on above:Order Comment: Specimen Type: BLOOD SPECIMENOrdering Facility: [facility] Address:[address] [place], [place] [address]Performed By: #### 78801- 8 ####[facility] LABIA [id number] [place], [place] [address]Vckalpbwm/100 WBC (Bld)7.5 %NormalHenry County Hospital on above:Order Comment: Specimen Type: BLOOD SPECIMENOrdering Facility: [facility] Address:[address] [place], [place] [address]Performed By: #### 62569-5 ####[facility] LABIA [id number] [place], [place] [address]Jbxfvllleid (Bld) [#/Vol]2.94 10*3/uLNormal1.45-7.50[facility] on above:Order Comment: Specimen Type: BLOOD SPECIMENOrdering Facility: [facility] Address:[address] [place], [place] [address]Performed By: #### 99175-4 ####[facility] LABCLIA [id number] [place], [place] [address]Nxaaambueuv/100 WBC (Bld)69.2 %NormalHenry County Hospital on above:Order Comment: Specimen Type: BLOOD SPECIMENOrdering Facility: [facility] Address:[address] [place], [place] [address]Performed By: #### 85496-1 ####[facility] LABCLIA [id number] [place], [place] [address]Qrpvaooec RBC (Bld) [#/Vol] 10*3/uLNormal<0.01[facility] on above:Order Comment: Specimen Type: BLOOD SPECIMENOrdering Facility: [facility] Address:[address] [place], [place] [address]Performed By: #### 74153-5 ####[facility] LABCLIA [id number] [place], [place] [address]Lfargifki RBC/100 WBC (Bld) [Ratio]0.0 /100 WBCNormal [facility] on above:Order Comment: Specimen Type: BLOOD SPECIMENOrdering Facility: [facility] Address:[address] [place], [place] [address]Performed By: #### 60243-8 ####[facility] LABCLIA [id number] [place], [place] [address]Rabfuxje mean volume (Bld) [Entitic vol]8.7 fLLow9.0-12.7CMagruder Memorial Hospital on above:Order Comment: Specimen Type: BLOOD SPECIMENOrdering Facility: [facility] Address:[address] [place], [place] [address]Performed By: #### 92859-7 ####[facility] LABCLIA [id number] [place], [place] [address]Lcugcrxhu (Bld) [#/Vol]174 10*3/wOLjhklf769-375TkrrhmxbpHenry County Hospital on above:Order Comment: Specimen Type: BLOOD SPECIMENOrdering Facility: [facility] Address:[address] [place], [place] [address]Performed By: #### 97758-0 ####[facility] LABCLIA [id number] [place], [place] [address]VWQ (Bld) [#/Vol]3.98 10*6/uLNormal3.90-5.20[facility] on above: Order Comment: Specimen Type: BLOOD SPECIMENOrdering Facility: [facility] Address:[address] [place] [address]Ubfseztqq By: #### 09900- 8 ####[facility] LABIA [id number] [place], [place] [address]WNM (Bld) [#/Vol]4.25 10*3/uLNormal3.70-11.00[facility] on above:Order Comment: Specimen Type: BLOOD SPECIMENOrdering Facility: [facility] Address:[address] [place] [address]Kwtdynxzg By: #### 99422-3 ####[facility] LABIA [id number] [place], [place] [address]YDQXWHTwf 74-02-6648QHASCAECfykl Visit (HEMASA) RAEANN ECKERT ([id number]) 1965 F Date Time Provider Department 09/11/24 3:20 PM SIMONE MITCHELL During your visit today, we recorded the following information about you: Simone Mitchell RN 09/11/2024 4:03 PM Addendum Introduced myself to pt during today's visit. RNCC contact information, including list of important phone numbers, provided. 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 Pt verbalizes understanding. Encouraged pt to reach out with any questions or concerns. Simone Mitchell RN Referring Provider: KEITH DORSEY [[id number]] Allergies As of Date: 09/11/2024 Noted Allergy Reaction HYDROCODONE 11/22/2023 4 - Hives Comments: HIVES, itching, red rash all over body. OXYCODONE 11/08/2023 4 - Hives 2 - Rash Date Reviewed: 09/11/2024 Reviewed by: Angelica Schaffer MA - Fully Assessed Reason for Visit: Care Coordination [3491] Cmt: RNCC Introduction Primary Visit Diagnosis:GBM (glioblastoma multiforme) ([facility]) [C71.9] Prescriptions as of 09/11/2024 - levETIRAcetam (KEPPRA) 500 mg tablet Take 1 tablet by mouth two times a day. - temozolomide (TEMODAR) 180 mg capsule Take 2 capsules (360 mg) by mouth once daily for 5 days. - Acetaminophen 500 mg cap Take by mouth. - fluticasone propionate (FLONASE NASAL) Use in the nose. - aspirin, enteric coated (ASPIRIN, ENTERIC COATED) 81 mg EC tablet Take 81 mg by mouth once daily. - atenolol (TENORMIN) 50 mg tablet Take 50 mg by mouth once daily. For 30 days - atorvastatin (LIPITOR) 80 mg tablet Take 80 mg by mouth once daily. - busPIRone (BUSPAR) 10 mg tablet Take 10 mg by mouth two times a day. - citalopram (CELEXA) 40 mg tablet Take 40 mg by mouth once daily. For 30 days - ezetimibe (ZETIA) 10 mg tablet Take 10 mg by mouth once daily. - omeprazole (PRILOSEC) 20 mg capsule Take 20 mg by mouth once daily. - lisinopril (ZESTRIL) 5 mg tablet Take 5 mg by mouth once daily. For 30 days - ondansetron orally disintegrating (ZOFRAN ODT) 4 mg disintegrating tablet Take 8 mg by mouth every 8 hours as needed. - prochlorperazine (COMPAZINE) 10 mg tablet Take 10 mg by mouth every 8 hours as needed. - senna-docusate (SENNA-S) 8.6-50 mg per tablet Take 1 tablet by mouth two times a day. Problem List As Of Date 09/11/2024 Noted Resolved GBM (glioblastoma multiforme) (HCC) [C71.9] 09/11/2024 Pulmonary nodules/lesions, multiple [R91.8] 09/11/2024 Encounter Status:Closed by SIMONE MITCHELL on 09/11/24[facility] ColumbusCNOVSPon [id number] ([place]) Office (HEMASA) RAEANN ECKERT ([id number]) 1965 F Date Time Provider Department 09/11/24 3:00 PM KEITH DORSEY During your visit today, we recorded the following information about you: Temperature Pulse Respiration Blood pressure 97.1 degrees 103/minute 16/minute 126/82 Weight Height 103.1 kg 1.631 m Keith Dorsey MD 09/12/2024 12:38 PM Signed NAME: Marcus Eckertqueline [facility] NO.: [id number] DATE OF SERVICE: September 11, 2024 (Jana) Some elements in this clinic note that are critical to medical decision making have been carefully reviewed and included from a prior clinic note dated: August 28, 2024 (Jana) Referring Provider: Self Referred Additional Clinicians involved in Raeann Love RichardsonBabar'love care: DIAGNOSIS: Gliosarcoma ASSESSMENT: 58 year old woman who presented with mental status changes in November 2024 and was found to have a right partietal lobe lesion with vasogenic edema. 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 She is currently due to start C5 and was released from [place] to return back to her home in [place]. PLAN: C5 Temodar start tomorrow - Increase dose to 360mg, D1-5 q 28 days Do not start next cycle (C6) until released by physician during follow up appointment RTC on 10/10/20[address] Labs [address] Annual CT Chest to monitor pulmonary nodules - due on/around 10/31/2024, just prior to C7 Ordered on 09/11/2024 - HPI: CASE HISTORY: Reverse Chronological Order 09/12/2024 - Start C5 Temodar - increase to 360mg on D1-5 q 28 days 08/13/2024-08/17/2024 - C4 D1-5 q 28 Temodar 07/27/2024 - MRI Brain: Postsurgical changes of prior right parietal craniotomy and mass resection. Slight interval increase in surrounding hyperintensity with new mildly irregular enhancement along the medial margin of the resection cavity. Findings may relate to evolving posttreatment change and/or recurrent or progressive disease. Recommend continued attention on follow-up. 07/16/2024-07/20/2024 - C3 Temodar 06/19/2024-06/23/2024 - C2 Temodar 05/30/2024 - MRI Brain: Postsurgical changes of prior right parietal mass resection. No findings suggestive of recurrent or progressive disease. Mild increase in hyperintensity along the anterior and superior margins of the resection cavity may relate to evolving posttreatment changes. 05/21/2024-05/25/2024 - C1 adjuvant Temodar 320mg 5 days on (23 days off) 04/02/2024 - MRI Brain: Postoperative changes of right parietal GBM resection, without evidence of residual or recurrent tumor. Expected evolution of postoperative changes with significant interval decrease in size of resection cavity and surrounding vasogenic white matter edema in the right parietal lobe. Mild burden of presumed chronic small vessel ischemic white matter disease. 01/12/2024-03/08/2024 - Concurrent Temodar per Dr. Rebecca Oh at [facility] - held 02/23-03/01 due to low platelets 01/12/2024-03/08/2024 - 30 fractions concurrent radiation: per Dr. Alexandr Field at [facility] 01/04/2024 - Repeated sim 12/21/2023 - Scheduled to start radiation but cancelled to reportedly treat locally 12/09/2023 - Completed radiation sim 11/23/2023 - CT Brain AND MRI Brain: Post resection of a high-grade glioma from the right parietal region. This study will serve as a baseline for future follow-up. 11/23/2023 - Right Craniotomy - Case #: [id number]: Dr. Raphael Mckee at [facility] A-B. 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 Endothelial proliferation and necrosis are present. Immunohistochemistry performed on Block B2 demonstrate the lesional cells to be POSITIVE for CD10, focal GFAP, focal Olig2, and ATRX (retained, wild-type), while being NEGATIVE for IDH1 (R132H wild-type) and BRAF. P53 is overexpressed. PHH3 highlights mitotic figures up to 30/10 HPF and the Ki-67 proliferation index is up to approximately approximately 40%. Addendum: Negative IDH1 (R132H) immunohistochemistry is considered equivalent to WIR-xtbv-kbxt status in this age group, particularly in an ATRX-retained tumor. Additional studies performed: -CD68, (more content not included)...Normal[facility] Comprehensive metabolic 2000 panelon [id number] [Mass/Vol]3.9 g/dLNormal 3.9-4.9CMagruder Memorial Hospital on above:Order Comment: Specimen Type: BLOOD SPECIMENOrdering Facility: [facility] Address:[address] [place] [address]Whxljfdus By: #### 41067-1 ####[facility] LABCLIA [id number] [place], [place] [address]XQK [Catalytic activity/Vol]137 U/RXhpu19-113VnmefxeqhHenry County Hospital on above:Order Comment: Specimen Type: BLOOD SPECIMENOrdering Facility: [facility] Address:[address] [place], [place] [address]Performed By: #### 17476-9 ####[facility] LABCLIA [id number] [facility] [place] [address]KWK [Catalytic activity/Vol]19 U/LNormal7-38[facility] on above:Order Comment: Specimen Type: BLOOD SPECIMENOrdering Facility: [facility] Address:[address] [place], [place] [address]Performed By: #### 17349-5 ####[facility] LABCLIA [id number] [place], [place] [address]Udmqk gap [Moles/Vol]11 mmol/LNormal8-15[facility] on above:Order Comment: Specimen Type: BLOOD SPECIMENOrdering Facility: [facility] Address:[address] [place], [place] [address]Performed By: #### 06661- 8 ####[facility] LABCLIA [id number] [facility] [place] [address]OLZ [Catalytic activity/Vol]17 U/NTudaas47-55IkwsqsmxmHenry County Hospital on above:Order Comment: Specimen Type: BLOOD SPECIMENOrdering Facility: [facility] Address:[address] [place], [place] [address]Performed By: #### 19390-8 ####[facility] LABCLIA [id number] [place], [place] [address]Psspwquof [Mass/Vol]0.3 mg/dLNormal0.2-1.3CMagruder Memorial Hospital on above:Order Comment: Specimen Type: BLOOD SPECIMENOrdering Facility: [facility] Address:[address] [place], [place] [address]Performed By: #### 81280- 8 ####[facility] LABCLIA [id number] [place], [place] [address]Ujafbnw [Mass/Vol]10.0 mg/dLNormal8.5-10.2CMagruder Memorial Hospital on above:Order Comment: Specimen Type: BLOOD SPECIMENOrdering Facility: [facility] Address:[address] [place], [place] [address]Performed By: #### 14101-4 ####[facility] LABCLIA [id number] [place], [place] [address]Aloiszgj [Moles/Vol]101 mmol/KJuoeyq76-246LipyudrvaHenry County Hospital on above: Order Comment: Specimen Type: BLOOD SPECIMENOrdering Facility: [facility] Address:[address] [place], [place] [address]Performed By: #### 65884- 8 ####[facility] LABCLIA [id number] [place], [place] [address]QR0 [Moles/Vol]26 mmol/CNuljhu60-94YskpcrtmbHenry County Hospital on above:Order Comment: Specimen Type: BLOOD SPECIMENOrdering Facility: [facility] Address:[address] [place], [place] [address]Performed By: #### 97888-8 ####[facility] LABCLIA [id number] [place], [place] [address]Yxwcylqboa [Mass/Vol]0.79 mg/dL Normal0.58-0.96[facility] on above:Order Comment: Specimen Type: BLOOD SPECIMENOrdering Facility: [facility] Address:[address] [place], [place] [address]Performed By: #### 92370-9 ####[facility] LABCLIA [id number] [place], [place] [address]Cxogzhbsmp and Glomerular filtration rate.predicted panel (S/P/Bld)86 mL/min/1.73m???Normal>=60[facility] on above:Order Comment: Specimen Type: BLOOD SPECIMENOrdering Facility: [facility] Address:[address] [place], [place] [address]Result Comment: Estimated Glomerular Filtration Rate (eGFR) is calculated using the 2020 CKD-EPI creatinine equation. This equation utilizes serum creatinine, sex, and age as parameters. The creatinine assay has traceable calibration to isotope dilution- mass spectrometry. Refer to KDIGO guidelines for clinical interpretation. In patients with unstable renal function, e.g. those with acute kidney injury, the eGFR may not accurately reflect actual GFR.Performed By: #### 29743-2 ####[facility] LABCLIA [id number] [place], [place] [address]Nhtxcya [Mass/Vol]141 mg/vCUaaz34-92YtwgxlugiHenry County Hospital on above:Order Comment: Specimen Type: BLOOD SPECIMENOrdering Facility: [facility] Address:[address] [place] [address]Woftuf Comment: The [place] Diabetes Association (ADA) provides guidance for cutoff values for fasting glucose and random glucose. The ADA defines fasting as no caloric intake for at least 8 hours. Fasting plasma glucose results between 100 to 125 mg/dL indicate increased risk for diabetes (prediab etes). Fasting plasma glucose results greater than or [...] Standards of Medical Care in Diabetes 2016, [place] [employer]. Diabetes Care. 2016.39(Suppl 1).Performed By: #### 72755-8 ####[facility] LABCLIA [id number] [place], [place] [address]Wzljenmdg [Moles/Vol]4.4 mmol/LNormal3.7-5.1CMagruder Memorial Hospital on above:Order Comment: Specimen Type: BLOOD SPECIMENOrdering Facility: [facility] Address:[address] [place] [address]Ddjpzphus By: #### 37584-0 ####[facility] LABCLIA [id number] [place], [place] [address]Awkxjqq [Mass/Vol]7.1 g/dLNormal6.3-8.0[facility] on above:Order Comment: Specimen Type: BLOOD SPECIMENOrdering Facility: [facility] Address:[address] [place], [place] [address]Performed By: #### 85193- 8 ####[facility] LABCLIA [id number] [place], [place] [address]Yhcwmd [Moles/Vol]138 mmol/IVsdnsy618-996HkjuncgezHenry County Hospital on above:Order Comment: Specimen Type: BLOOD SPECIMENOrdering Facility: [facility] Address:[address] [place], [place] [address]Performed By: #### 12085-0 ####[facility] LABCLIA [id number] [place], [place] [address]Rkrf nitrogen [Mass/Vol]10 mg/dLNormal7-21[facility] on above:Order Comment: Specimen Type: BLOOD SPECIMENOrdering Facility: [facility] Address:[address] [place], [place] [address]Performed By: #### 34920-8 ####[facility] LABIA [id number] [place], [place] [address]MCWXWJxm [id number] (SP) Office (HEMASA) RAEANN ECKERT ([id number]) 1965 F Date Time Provider Department 08/28/24 3:20 PM KEITH DORSEY During your visit today, we recorded the following information about you: Temperature Pulse Respiration Blood pressure 97 degrees 84/minute 16/minute 113/77 Weight Height 102.1 kg 1.631 m Keith Dorsey MD 09/01/2024 6:46 AM Signed NAME: Raeann Eckert CLINIC NO.: [id number] DATE OF SERVICE: August 28, 2024 (Jana) Referring Provider: Self Referred Consultation requested by Self Referred for an opinion regarding Ms. Raeann Eckert, and my final recommendations will be communicated back to the requesting physician by way of shared medical record or letter via US mail. Additional Clinicians involved in Raeann Eckert's care: DIAGNOSIS: gliosarcoma ASSESSMENT: 58 year old woman who presented with mental status changes in November 2024 and was found to have a right partietal lobe lesion with vasogenic edema. 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 She is currently due to start C5 and was released from [place] to return back to her home in [place]. PLAN: RTC on 09/10/2024 Labs same day C5 Temodar due to start 09/10/2024 - Increase dose to 360mg, D1-5, q 28 Do not start C5 until released by physician during appointment Order CTs in future to monitor pulmonary nodules - HPI: CASE HISTORY: Reverse Chronological Order 08/13/2024-08/17/2024 - C4 Temodar 07/27/2024 - MRI Brain: Postsurgical changes of prior right parietal craniotomy and mass resection. Slight interval increase in surrounding hyperintensity with new mildly irregular enhancement along the medial margin of the resection cavity. Findings may relate to evolving posttreatment change and/or recurrent or progressive disease. Recommend continued attention on follow-up. 07/16/2024-07/20/2024 - C3 Temodar 06/19/2024-06/23/2024 - C2 Temodar 05/30/2024 - MRI Brain: Postsurgical changes of prior right parietal mass resection. No findings suggestive of recurrent or progressive disease. Mild increase in hyperintensity along the anterior and superior margins of the resection cavity may relate to evolving posttreatment changes. 05/21/2024-05/25/2024 - C1 adjuvant Temodar 320mg 5 days on (23 days off) 04/02/2024 - MRI Brain: Postoperative changes of right parietal GBM resection, without evidence of residual or recurrent tumor. Expected evolution of postoperative changes with significant interval decrease in size of resection cavity and surrounding vasogenic white matter edema in the right parietal lobe. Mild burden of presumed chronic small vessel ischemic white matter disease. 01/12/2024-03/08/2024 - Concurrent Temodar per Dr. Rebecca Oh at [facility] - held 02/23-03/01 due to low platelets 01/12/2024-03/08/2024 - 30 fractions concurrent radiation: per Dr. Alexandr Field at [facility] 01/04/2024 - Repeated sim 12/21/2023 - Scheduled to start radiation but cancelled to reportedly treat locally 12/09/2023 - Completed radiation sim 11/23/2023 - CT Brain AND MRI Brain: Post resection of a high-grade glioma from the right parietal region. This study will serve as a baseline for future follow-up. 11/23/2023 - Right Craniotomy - Case: [id number]: Dr. Raphael Mckee at [facility] A-B. 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 Endothelial proliferation and necrosis are present. Immunohistochemistry performed on Block B2 demonstrate the lesional cells to be POSITIVE for CD10, focal GFAP, focal Olig2, and ATRX (retained, wild-type), while being NEGATIVE for IDH1 (R132H wild-type) and BRAF. P53 is overexpressed. PHH3 highlights mitotic figures up to 30/10 HPF and the Ki-67 proliferation index is up to approximately approximately 40%. Addendum: Negative IDH1 (R132H) immunohistochemistry is considered equivalent to ZQJ-nmga-fjws status in this age group, particularly in an ATRX-retained tumor. Additional studies performed: -CD68, CD163, MPO, and lysozyme highlight copious associated histiocytes, but are weak/negative in the neoplastic cell (more content not included)...Normal [facility] HospitalPNon [id number] (NSCAMN) RAEANN ECKERT ([id number]) 1965 F Date Time Provider Department 08/08/24 SELF NSCAMN During your visit today, we recorded the following information about you: Elli Garza F 08/08/2024 1:02 PM Signed Records received from [facility], Sarah Ward Ph. [phone], Fx. [phone]. MRI reports included. Pt added to DB. Images Viewable in Estech. DB not saving, will attempt again later: Roxana Driver APRN.CNP 08/08/2024 1:31 PM Signed Time Frame: COREY < 1 week If unable to obtain an appointment within requested time frame, please contact appropriate healthcare specialist for scheduling access Provider: Danny Hunt Malkin, Torres, [place], [place] Referring: self Please instruct patient to hand carry/ upload images prior to appt Dx: GBM Patient: Raeann Liu Address: Raeann Liu [id number] [facility] [address] [place] [address] Per Triage: Patient expectations: Second opinion Tumor Specifics: Location: brain Pathology: Previous Evaluations: MRI w/wo contrast Previous Treatments: Tumor Surgery: Yes Other Surgeries: No Gamma Knife: No Radiation: Yes Chemotherapy: Yes Immunotherapy: No Research trials: No Roxana Driver APRN.[employer] August 08, 2024 Roxana Driver APRN.RODRIGUEZ 08/08/2024 1:31 PM Signed Please request all MRI Brain from [facility]. Roxana Driver APRN.RODRIGUEZ Allergies As of Date: 08/08/2024 (Not on File) Date Reviewed: Never Reviewed Reason for Visit: Triage [Other] Cmt: Onbase_ Records Received_Images Viewable Prescriptions as of 11/27/2024 - lisinopril (ZESTRIL) 5 mg tablet Take 1 tablet by mouth once daily. - citalopram (CELEXA) 20 mg tablet Take 1 tablet by mouth once daily - busPIRone (BUSPAR) 10 mg tablet Take 1 tablet by mouth two times a day. - atorvastatin (LIPITOR) 80 mg tablet Take 1 tablet by mouth once daily. - temozolomide (TEMODAR) 180 mg capsule Take 2 capsules (360 mg) by mouth once daily for 5 days. - levETIRAcetam (KEPPRA) 500 mg tablet Take 1 tablet by mouth two times a day. - Acetaminophen 500 mg cap Take by mouth. - fluticasone propionate (FLONASE NASAL) Use in the nose. - aspirin, enteric coated (ASPIRIN, ENTERIC COATED) 81 mg EC tablet Take 81 mg by mouth once daily. - atenolol (TENORMIN) 50 mg tablet Take 50 mg by mouth once daily. For 30 days - ezetimibe (ZETIA) 10 mg tablet Take 10 mg by mouth once daily. - omeprazole (PRILOSEC) 20 mg capsule Take 20 mg by mouth once daily. - ondansetron orally disintegrating (ZOFRAN ODT) 4 mg disintegrating tablet Take 8 mg by mouth every 8 hours as needed. - prochlorperazine (COMPAZINE) 10 mg tablet Take 10 mg by mouth every 8 hours as needed. - senna-docusate (SENNA-S) 8.6-50 mg per tablet Take 1 tablet by mouth two times a day. Problem List As Of Date: 08/08/2024 (None) Encounter Status:Closed by ELLI GARZA on 11/27/24[facility] CHEST WO CONon [id number] [address] [place] Scan Report Signed with Addenda Patient: RAEANN ECKERT MR#: [id number] : 1965 Acct:[id number] Age/Sex: 57 / F ADM Date: 06/24/23 Loc: CT Attending Dr: Shaikh Pavithra Giron Ordering Physician: Shaikh Bree Arshad Date of Service: 06/24/23 Procedure(s): CT chest wo con Accession Number(s): [id number] cc: Shaikh Bree Arshad ADDENDUM [place] [address] Patient Name: RAEANN ECKERT MRN: [id number] date: 1965 Sex: F Assigned Patient Location: CT Current Patient Location: [facility] Accession/Order Number: [id number] Exam Date: 06/24/2023 08:05 Report Date: 09/19/2023 [...] type. Axial, Coronal, and Sagittal images. Dose reduction techniques were achieved by using automated exposure control and/or adjustment of mA and/or kV according to patient size and/or use of iterative reconstruction technique. FINDINGS: LUNGS: Multiple granulomas scattered bilaterally. No suspicious nodules or acute infiltrates. No significant chronic interstitial changes. PLEURA: No mass, effusion, or pneumothorax. VASCULATURE: No abnormality. JED: No mass or adenopathy. MEDIASTINUM: No mass or adenopathy. CARDIAC: No enlargement, pericardial thickening, or significant calcification. AORTA: No aneurysm or dissection. CHEST WALL: No mass or axillary adenopathy. BONES: No bone lesion or fracture. LIMITED ABDOMEN: No suspicious findings Limited images of the upper abdomen. OTHER: Negative. Addendum Dictated By: Junito Ochoa M.D. Addendum Signed By: 11/09/23704 Addendum Cosigned By: DD/ TD/TT: / ADDENDUM CT/CT chest wo con IMPRESSION: 1. Multiple benign-appearing granulomas scattered within the lungs. No suspicious nodules or infiltrates. Electronically authenticated by: JUNITO OCHOA Date: 09/19/2023 10:58 Addendum Dictated By: Junito Ochoa M.D. Addendum Signed By: 11/09/23704 Addendum Cosigned By: DD/ TD/TT: / The [place] [address] Patient Name: RAEANN ECKERT MRN: [facility]:[id number] date: 1965 Sex: F Assigned Patient Location: CT Current Patient Location: CT Accession/Order Number: [id number] Exam Date: 06/24/2023 08:05 Report Date: 06/24/2023 08:26 At the request of: SHAIKH PAVITHRA Procedure: CT chest wo con EXAMINATION: CT chest wo con HISTORY: Abnormal Chest Xray With Multiple Nodules R91.8 , lung nodule, cough, shortness of breath COMPARISON: No relevant comparison available. TECHNIQUE: Multi-planar CT images were obtain (more content not included)...[facility] Radiology, Radiologist, MD - 11/09/2023 [place] [address] CT Scan Report Signed with Addenda Patient: RAEANN ECKERT MR#: [id number] : 1965 Acct:[id number] Age/Sex: 57 / F ADM Date: 06/24/23 Loc: CT Attending Dr: Shaikh Pavithra Giron Ordering Physician: Shaikh Bree Arshad Date of Service: 06/24/23 Procedure(s): CT chest wo con Accession Number(s): [id number] cc: Shaikh Blade Arshad. ADDENDUM The [place] [id number] Patient Name: RAEANN ECKERT MRN: [id number] date: 1965 Sex: F Assigned Patient Location: CT Current Patient Location: [facility] Accession/Order Number: [id number] Exam Date: 06/24/2023 08:05 Report Date: 09/19/2023 [...] type. Axial, Coronal, and Sagittal images. Dose reduction techniques were achieved by using automated exposure control and/or adjustment of mA and/or kV according to patient size and/or use of iterative reconstruction technique. FINDINGS: LUNGS: Multiple granulomas scattered bilaterally. No suspicious nodules or acute infiltrates. No significant chronic interstitial changes. PLEURA: No mass, effusion, or pneumothorax. VASCULATURE: No abnormality. JED: No mass or adenopathy. MEDIASTINUM: No mass or adenopathy. CARDIAC: No enlargement, pericardial thickening, or significant calcification. AORTA: No aneurysm or dissection. CHEST WALL: No mass or axillary adenopathy. BONES: No bone lesion or fracture. LIMITED ABDOMEN: No suspicious findings Limited images of the upper abdomen. OTHER: Negative. Addendum Dictated By: Junito Ochoa M.D. Addendum Signed By: Bree> 11/09/23 07 Addendum Cosigned By: DD/ TD/TT: / ADDENDUM CT/CT chest wo con IMPRESSION: 1. Multiple benign-appearing granulomas scattered within the lungs. No suspicious nodules or infiltrates. Electronically authenticated by: JUNITO OCHOA Date: 09/19/2023 10:58 Addendum Dictated By: Junito Ochoa M.D. Addendum Signed By: Bree> 11/09/23704 Addendum Cosigned By: DD/ TD/TT: / [place] [id number] Patient Name: RAEANN ECKERT MRN: [facility]:[id number] date: 1965 Sex: F Assigned Patient Location: CT Current Patient Location: CT Accession/Order Number: [id number] Exam Date: 06/24/2023 08:05 Report Date: 06/24/2023 08:26 At the request of: SHAIKH PAVITHRA Procedure: CT chest wo con EXAMINATION: CT chest wo con HISTORY: Abnormal Chest Xray With Multiple Nodules R91.8 , lung nodule, cough, shortness of breath COMPARISON: No relevant comparison available. TECHNIQUE: Multi-planar CT images were obtained without and/or with IV contrast as indicated by examination type. Axial, Coronal, and Sagittal images. Dose reduction techniques were achieved by using automated exposure control and/or adjustment of mA and/or kV according to patient size and/or use of iterative reconstruction technique. FINDINGS: LUNGS: Multiple granulomas scattered bilaterally. No suspicious nodules or acute infiltrates. No significant chronic interstitial changes. PLEURA: No mass, effusion, or pneumothorax. VASCULATURE: No abnormality. JED: No mass or adenopathy. MEDIASTINUM: No mass or adenopathy. CARDIAC: No enlargement, pericardial thickening, or significant calcification. AORTA: No aneurysm or dissection. CHEST WALL: No mass or axillary adenopathy. BONES: No bone lesion or fracture. LIMITED ABDOMEN: No suspicious findings Limited images of the upper abdomen. OTHER: Negative. CT/CT chest wo con IMPRESSION: 1. Multiple benign-appearing granulomas scattered within the lungs. No suspicious nodules or infiltrates. Electronically authenticated by: JUNITO OCHOA Date: 06/24/2023 08:26 Dictated By: Junito Ochoa M.D. Signed By: 06/24/2329 DD/ 5 TD/TT: Storage Management Architect: [employer]PR CHEST WO CONOrdered By: Radiologist Radiology on 11-09-2023 [facility] [employer] Work Phone: SHOULDER LEFT W/Oon [phone] [address] Magnetic Resonance Report Signed Patient: RAEANN ECKERT MR#: [id number] : 1965 Acct:[id number] Age/Sex: 57 / F ADM Date: 10/24/23 Loc: MRI Attending Dr: Shaikh Pavithra Giron Ordering Physician: Shaikh Bree Arshad Date of Service: 10/24/23 Procedure(s): MR shoulder LT wo con Accession Number(s): [id number] cc: Shaikh Bree Arshad [address] [address] Patient Name: RAEANN ECKERT MRN: [id number]:[id number] date: 1965 Sex: F Assigned Patient Location: MRI Current Patient Location: Accession/Order Number: [id number] Exam Date: 10/24/2023 12:57 Report Date: 10/25/2023 11:18 At the request of: SHAIKH PAVITHRA Procedure: MR shoulder LT wo con EXAMINATION: MR shoulder LT wo con HISTORY: Acute left shoulder pain after falling COMPARISON: XR shoulder left 09/16/2023 TECHNIQUE: A variety of imaging planes and parameters were utilized for visualization of suspected pathology. Imaging was performed without or with contrast as indicated by examination type. FINDINGS: ROTATOR CUFF REGION CUFF TENDONS: Moderate increased signal intensity in the supraspinatus tendon indicates tendon degeneration and/or tendinitis. No merlin [...] Negative. No other significant findings or glenohumeral effusion. MR/MR shoulder LT wo con IMPRESSION: 1. Suspected tear of the superior labrum. 2. Mild strain of the supraspinatus tendon. 3. Mild degenerative changes of the acromioclavicular joint with small undersurface osteophytes which would predispose to rotator cuff injury. Electronically authenticated by: JUNITO OCHOA Date: 10/25/2023 11:18 Dictated By: Junito Ochoa M.D. Signed By: 10/25/23 1120 DD/ 1118 TD/TT: Storage Management Architect:TBHRadiology, Radiologist, - 10/25/2023 [place] [address] Magnetic Resonance Report Signed Patient: RAEANN ECKERT MR#: [id number] : 1965 Acct:[id number] Age/Sex: 57 / F ADM Date: 10/24/23 Loc: MRI Attending Dr: Shaikh Pavithra Giron Ordering Physician: Shaikh Bree Arshad Date of Service: 10/24/23 Procedure(s): MR shoulder LT wo con Accession Number(s): [id number] cc: Shaikh Bree Arshad [address] [place] [address] Patient Name: RAEANN ECKERT MRN: [id number] date: 1965 Sex: F Assigned Patient Location: MRI Current Patient Location: Accession/Order Number: [id number] Exam Date: 10/24/2023 12:57 Report Date: 10/25/2023 11:18 At the request of: SHAIKH PAVITHRA Procedure: MR shoulder LT wo con EXAMINATION: MR shoulder LT wo con HISTORY: Acute left shoulder pain after falling COMPARISON: XR shoulder left 09/16/2023 TECHNIQUE: A variety of imaging planes and parameters were utilized for visualization of suspected pathology. Imaging was performed without or with contrast as indicated by examination type. FINDINGS: ROTATOR CUFF REGION CUFF TENDONS: Moderate increased signal intensity in the supraspinatus tendon indicates tendon degeneration and/or tendinitis. No merlin [...] Negative. No other significant findings or glenohumeral effusion. MR/MR shoulder LT wo con IMPRESSION: 1. Suspected tear of the superior labrum. 2. Mild strain of the supraspinatus tendon. 3. Mild degenerative changes of the acromioclavicular joint with small undersurface osteophytes which would predispose to rotator cuff injury. Electronically authenticated by: JUNITO OCHOA Date: 10/25/2023 11:18 Dictated By: Junito Ochoa M.D. Signed By: 10/25/23 1120 DD/ 1118 TD/TT: Storage Management Architect: KESHA HealthcareRadiology Study observation (narrative)[facility] SHOULDER LEFT W/OOrdered By: Radiologist Radiology on 75-22-0039[facility] Work Phone: XR Shoulder - left 2 Viewson 21-64-4398[place] [address] XRay Report Signed Patient: RAEANN ECKERT MR#: [id number] : 1965 Acct:[id number] Age/Sex: 57 / F ADM Date: 09/16/23 Loc: RAD Attending Dr: Shaikh Pavithra Giron Ordering Physician: Shaikh Bree Arshad Date of Service: 09/16/23 Procedure(s): XR shoulder LT min 2V Accession Number(s): [id number] cc: Shaikh Bree Arshad [address] [place] [address] Patient Name: RAEANN ECKERT MRN: [facility]:[id number] date: 1965 Sex: F Assigned Patient Location: RAD Current Patient Location: Accession/Order Number: [id number] Exam Date: 09/16/2023 09:15 Report Date: 09/18/2023 [...] or significant degenerative changes of the left shoulder. Electronically authenticated by: JUNITO OCHOA Date: 09/18/2023 05:16 Dictated By: Junito Ochoa M.D. Signed By: 09/18/23517 DD/ 5 TD/TT: Storage Management Architect:TBHRadiology, Radiologist, MD - 09/19/2023 [place] [address] XRay Report Signed Patient: RAEANN ECKERT MR#: [id number] : 1965 Acct:[id number] Age/Sex: 57 / F ADM Date: 09/16/23 Loc: RAD Attending Dr: Shaikh Pavithra Giron Ordering Physician: Shaikh Bree Arshad Date of Service: 09/16/23 Procedure(s): XR shoulder LT min 2V Accession Number(s): [id number] cc: Shaikh Bree Arshad [address] [address] Patient Name: RAEANN ECKERT MRN: [id number] date: 1965 Sex: F Assigned Patient Location: [facility] Current Patient Location: Accession/Order Number: [id number] Exam Date: 09/16/2023 09:15 Report Date: 09/18/2023 [...] or significant degenerative changes of the left shoulder. Electronically authenticated by: JUNITO OCHOA Date: 09/18/2023 05:16 Dictated By: Junito Ochoa M.D. Signed By: 09/18/23517 DD/ 5 TD/TT: Storage Management Architect: KESHA HealthcareRadiology Study observation (narrative)[facility] HealthcareXR Shoulder - left 2 ViewsOrdered By: Radiologist Radiology on 36-46-7943[facility] Work Phone: mm TOMOSYNTHESIS SCREENING BIon 58-35-[address] [address] Mammography Report Signed Patient: RAEANN ECKERT MR#: [id number] : 1965 Acct:[id number] Age/Sex: 57 / F ADM Date: 06/29/23 Loc: MAMMO Attending Dr: Shaikh Pavithra Giron Ordering Physician: Shaikh Bree Arshad Results: Date of Service: 06/29/23 Follow Up: Procedure(s): MM tomosynthesis screening BI Accession Number(s): [id number] cc: Shaikh Bree Arshad Patient Name: RAEANN ECKERT MR#: [id number] : 1965 Exam Date: 06/29/2023 Ordering Doctor: Shaikh Ellen Stallings RADIOLOGY REPORT PROCEDURE: MM TOMOSYNTHESIS SCREENING BI COMPARISON: None. INDICATIONS: Screening Calculator Name NCI Breast Cancer Risk Assessment Tool 5 Year Breast Cancer Risk 1.30% Lifetime Breast Cancer Risk 7.60% Personal Breast Cancer No Personal Ovarian Cancer No Treatments None Family Cancers None LOCATION: [facility] BREAST COMPOSITION: Scattered areas fibroglandular density. FINDINGS: DIAGNOSTIC CATEGORY 2--BENIGN FINDING: RIGHT BREAST: No significant suspicious finding. Scattered benign-appearing calcifications are present. Scattered benign-appearing lymph nodes are present. LEFT BREAST: No significant suspicious finding. Scattered benign-appearing calcifications are present. Scattered benign-appearing lymph nodes are present. RECOMMENDATIONS: ROUTINE MAMMOGRAM AND CLINICAL EVALUATION IN 12 MONTHS. PLEASE NOTE: A NORMAL MAMMOGRAM DOES NOT EXCLUDE THE POSSIBILITY OF BREAST CANCER. A CLINICALLY SUSPICIOUS PALPABLE LUMP SHOULD BE BIOPSIED. Dictated by: Junito Ochoa M.D. on 06/30/2023 at 07:42 Approved by: Junito Ochoa M.D. on 06/30/2023 at 07:45 Dictated By: Junito Ochoa M.D. Signed By: 06/30/23 0746 DD/ 0745 TD/TT: Storage Management Architect:TBHRadiology, Radiologist, MD - 06/30/2023 [place] [address] Mammography Report Signed Patient: RAEANN ECKERT MR#: [id number] : 1965 Acct:[id number] Age/Sex: 57 / F ADM Date: 06/29/23 Loc: MAMMO Attending Dr: Shaikh Pavithra Giron Ordering Physician: Shaikh Bree Arshad Results: Date of Service: 06/29/23 Follow Up: Procedure(s): MM tomosynthesis screening BI Accession Number(s): [id number] cc: Shaikh Bree Arshad Patient Name: RAEANN ECKERT MR#: [id number] : 1965 Exam Date: 06/29/2023 Ordering Doctor: Shaikh Ellen Stallings RADIOLOGY REPORT PROCEDURE: MM TOMOSYNTHESIS SCREENING BI COMPARISON: None. INDICATIONS: Screening Calculator Name NCI Breast Cancer Risk Assessment Tool 5 Year Breast Cancer Risk 1.30% Lifetime Breast Cancer Risk 7.60% Personal Breast Cancer No Personal Ovarian Cancer No Treatments None Family Cancers None LOCATION: [facility] BREAST COMPOSITION: Scattered areas fibroglandular density. FINDINGS: DIAGNOSTIC CATEGORY 2--BENIGN FINDING: RIGHT BREAST: No significant suspicious finding. Scattered benign-appearing calcifications are present. Scattered benign-appearing lymph nodes are present. LEFT BREAST: No significant suspicious finding. Scattered benign-appearing calcifications are present. Scattered benign-appearing lymph nodes are present. RECOMMENDATIONS: ROUTINE MAMMOGRAM AND CLINICAL EVALUATION IN 12 MONTHS. PLEASE NOTE: A NORMAL MAMMOGRAM DOES NOT EXCLUDE THE POSSIBILITY OF BREAST CANCER. A CLINICALLY SUSPICIOUS PALPABLE LUMP SHOULD BE BIOPSIED. Dictated by: Junito Ochoa M.D. on 06/30/2023 at 07:42 Approved by: Junito Ochoa M.D. on 06/30/2023 at 07:45 Dictated By: Junito Ochoa M.D. Signed By: 06/30/23 0746 DD/ TD/TT: Storage Management Architect: KESHA HealthcareRadiology Study observation (narrative)[facility] TOMOSYNTHESIS SCREENING BIOrdered By: Radiologist Radiology on 77-60-6944TZ[employer] Work Phone: ct CHEST WO CONon 14-44-8801ZniNew [place] [address] CT Scan Report Signed Patient: RAEANN ECKERT MR#: [id number] : 1965 Acct:[id number] Age/Sex: 57 / F ADM Date: 06/24/23 Loc: CT Attending Dr: Shaikh Pavithra Giron Ordering Physician: Shaikh Bree Arshad Date of Service: 06/24/23 Procedure(s): CT chest wo con Accession Number(s): [id number] cc: Shaikh Bree Arshad [place] [address] Patient Name: RAEANN ECKERT MRN: [facility]:[id number] date: 1965 Sex: F Assigned Patient Location: CT Current Patient Location: CT Accession/Order Number: [id number] Exam Date: 06/24/2023 08:05 Report Date: 06/24/2023 08:26 At the request of: SHAIKH PAVITHRA Procedure: CT chest wo con EXAMINATION: CT chest wo con HISTORY: Abnormal Chest Xray With Multiple Nodules R91.8 , lung nodule, cough, shortness of breath COMPARISON: No relevant comparison available. TECHNIQUE: Multi-planar CT images were obtained without and/or with IV contrast as indicated by examination type. Axial, Coronal, and Sagittal images. Dose reduction techniques were achieved by using automated exposure control and/or adjustment of mA and/or kV according to patient size and/or use of iterative reconstruction technique. FINDINGS: LUNGS: Multiple granulomas scattered bilaterally. No suspicious nodules or acute infiltrates. No significant chronic interstitial changes. PLEURA: No mass, effusion, or pneumothorax. VASCULATURE: No abnormality. JED: No mass or adenopathy. MEDIASTINUM: No mass or adenopathy. CARDIAC: No enlargement, pericardial thickening, or significant calcification. AORTA: No aneurysm or dissection. CHEST WALL: No mass or axillary adenopathy. BONES: No bone lesion or fracture. LIMITED ABDOMEN: No suspicious findings Limited images of the upper abdomen. OTHER: Negative. CT/CT chest wo con IMPRESSION: 1. Multiple benign-appearing granulomas scattered within the lungs. No suspicious nodules or infiltrates. Electronically authenticated by: JUNITO OCHOA Date: 06/24/2023 08:26 Dictated By: Junito Ochoa M.D. Signed By: 06/24/23828 DD/ 5 TD/TT: Storage Management Architect:TBHRadiology, Radiologist, - 06/24/2023 [place] [address] CT Scan Report Signed Patient: RAEANN ECKERT MR#: [id number] : 1965 Acct:[id number] Age/Sex: 57 / F ADM Date: 06/24/23 Loc: CT Attending Dr: Shaikh Pavithra Giron Ordering Physician: Shaikh Bree Arshad Date of Service: 06/24/23 Procedure(s): CT chest wo con Accession Number(s): [id number] cc: Shaikh Bree Arshad The [address] [address] Patient Name: RAEANN ECKERT MRN: [id number]:[id number] date: 1965 Sex: F Assigned Patient Location: CT Current Patient Location: CT Accession/Order Number: [id number] Exam Date: 06/24/2023 08:05 Report Date: 06/24/2023 08:26 At the request of: SHAIKH PAVITHRA Procedure: CT chest wo con EXAMINATION: CT chest wo con HISTORY: Abnormal Chest Xray With Multiple Nodules R91.8 , lung nodule, cough, shortness of breath COMPARISON: No relevant comparison available. TECHNIQUE: Multi-planar CT images were obtained without and/or with IV contrast as indicated by examination type. Axial, Coronal, and Sagittal images. Dose reduction techniques were achieved by using automated exposure control and/or adjustment of mA and/or kV according to patient size and/or use of iterative reconstruction technique. FINDINGS: LUNGS: Multiple granulomas scattered bilaterally. No suspicious nodules or acute infiltrates. No significant chronic interstitial changes. PLEURA: No mass, effusion, or pneumothorax. VASCULATURE: No abnormality. JED: No mass or adenopathy. MEDIASTINUM: No mass or adenopathy. CARDIAC: No enlargement, pericardial thickening, or significant calcification. AORTA: No aneurysm or dissection. CHEST WALL: No mass or axillary adenopathy. BONES: No bone lesion or fracture. LIMITED ABDOMEN: No suspicious findings Limited images of the upper abdomen. OTHER: Negative. CT/CT chest wo con IMPRESSION: 1. Multiple benign-appearing granulomas scattered within the lungs. No suspicious nodules or infiltrates. Electronically authenticated by: JUNITO OCHOA Date: 06/24/2023 08:26 Dictated By: Junito Ochoa M.D. Signed By: 06/24/23828 DD/ 5 TD/TT: Storage Management Architect: [facility] CHEST WO CONOrdered By: Radiologist Radiology on 06-24-2023 [facility] Work Phone: No Panel Informationon 53-55-0538Bgpymxwcs Study observation (narrative)[facility] HospitalRegistrationon 65-56-8394Nkigwlwauxys [id number]#1.00CD:127[facility] HospitalConsenton 26-09-5733Tnlnkbt [id number]#1.00CD:[address] [place], [place] [address]CT ABD/PELVIS WO CONon 67-01-8478PU ABD/PELVIS WO CONEXAM: CT ABD/PELVIS WO CON REASON FOR EXAM: [...] Electronically authenticated by: LEN DONATO Date: 2022-02-17 23:02[facility] AUTO DIFFon 58-88-7264HCKT #0.1 103/ulNormal0.0-0.1[facility] HospitalComment on above:Performed By: #### CBC #### [facility] [address] [address] [address] Abby SanchezBasophils/100 WBC (Bld)0.7 %Normal0.2-2.0[facility] Comment on above:Performed By: #### CBC #### [facility] [address] [address] [address] Abby Pacheco #0.1 103/ulNormal0.0-0.7The [facility] HospitalComment on above: Performed By: #### CBC #### [facility] [address] [address] [address] Abby Brennerosinophils/100 WBC (Bld)1.0 %Normal0.9-7.0[facility] Comment on above:Performed By: #### CBC #### [facility] [address] [address] [address] Abby Brennerrythrocyte distribution width (RBC) [Ratio]13.7 %Ttpqad79.0-15.0 [facility] HospitalComment on above:Performed By: #### CBC #### [facility] [address] [address] [address] Abby SanchezHematocrit (Bld) [Volume fraction]44.5 %Jkcilg43.0-48.0The [facility] HospitalComment on above:Performed By: #### CBC #### [facility] [address] [place] [address] Dr. Abby SanchezHemoglobin (Bld) [Mass/Vol]14.5 g/jSPfujqs02.0-16.0The [facility] HospitalComment on above:Performed By: #### CBC #### [facility] [address] [place] [address] Dr. Abby Virk #0.03 10e3/ulNormal0.00-0.03The [facility] HospitalComment on above:Performed By: #### CBC #### [facility] [address] [place] [address] Dr. Abby Virk %0.2 %Normal0.0-0.5The [facility] HospitalComment on above: Performed By: #### CBC #### [facility] [address] [place] [address] Dr. Abby Horowitz #2.1 103/ulNormal1.2-3.8The [facility] HospitalComment on above:Performed By: #### CBC #### [facility] [address] [place] [address] Dr. Abby Paredeshocytes/100 WBC (Bld)16.2 %Critically low20.5-60.0The [facility] HospitalComment on above:Performed By: #### CBC #### [facility] [address] [place] [address] Dr. Abby PedrozaUAL DIFF REQNONormalThe [facility] HospitalComment on above: Performed By: #### CBC #### [facility] [address] [place] [address] Dr. Abby Stearns (RBC) [Entitic mass]30.6 qgNsrbdd57.7-34.0The [facility] HospitalComment on above:Performed By: #### CBC #### [facility] [address] [place] [address] Dr. Abby Isbell (RBC) [Mass/Vol]32.6 g/gHOmwxox36.9-35.2The [facility] HospitalComment on above:Performed By: #### CBC #### [facility] [address] [place] [address] Dr. Abby IsbellV (RBC) [Entitic vol]93.9 yLZpeuzf55.0-99.0The [facility] HospitalComment on above:Performed By: #### CBC #### [facility] [address] [place] [address] Dr. Abby Carson #0.6 103/ulNormal0.3-0.8The [facility] HospitalComment on above:Performed By: #### CBC #### [facility] [address] [place] [address] Dr. Abby Croweocytes/100 WBC (Bld)5.1 %Normal1.7-12.0[facility] Comment on above:Performed By: #### CBC #### [facility] [address] [place] [address] Dr. Abby Mccann #9.7 103/ulCritically high1.4-6.5The [facility] Comment on above:Performed By: #### CBC #### [facility] [address] [place] [address] Dr. Abby Akhtarutrophils/100 WBC (Bld)76.8 %Critically high43.0-75.0The [facility] HospitalComment on above:Performed By: #### CBC #### [facility] [address] [place] [address] Dr. Abby Donnellylet mean volume (Bld) [Entitic vol]9.6 fLNormal9.5-13.5The [facility] HospitalComment on above:Performed By: #### CBC #### [facility] [address] [place] [address] Dr. Abby BarbourT324 103/dcGgermb319-181Nab [facility] HospitalComment on above: Performed By: #### CBC #### [facility] [address] [place] [address] Dr. Abby BartonC4.74 106/ulNormal4.20-5.40The [facility] HospitalComment on above:Performed By: #### CBC #### [facility] [address] [place] [address] Dr. Abby SanchezWBC12.7 103/ulCritically high4.0-11.0The [facility] HospitalComment on above:Performed By: #### CBC #### [facility] [address] [place] [address] Dr. Abby SanchezCULTURE URINEon 73-21-4716JJIMPQD URINECulture Observations: NO GROWTH.NormalOhio Valley Surgical HospitalComment on above:Performed By: #### URCX #### [facility] [address] [place] [address] Dr. Abby Brown URINE PROFILEon 48-64-8700Crqncysrh Ql (U)NegativeNormal NEGATIVEThe [facility] HospitalComment on above:Performed By: #### CATHY DAMON ####[facility] [address] [place] [address]Dr. Yilan ChangClarity (U)SL CLOUDYAbnormalCLEARThe [facility] HospitalComment on above:Performed By: #### CATHY DAMON ####[facility] [address] [place] [address]Dr. Abby ChangColor (U)LT. YELLOWNormalYELLOWThe [facility] HospitalComment on above:Performed By: #### CATHY DAMON ####[facility] [address] [place] [address]Dr. Abby BriggsD A micrscopic examination will be performed if indicated.NormalOhio Valley Surgical HospitalComment on above:Performed By: #### BARRINGTON DAMONRO ####[facility] [address] [place] [address]Dr. Kiralan ChangGlucose Ql (U) NegativeNormalNEGATIVEThe [facility] HospitalComment on above:Performed By: #### BARRINGTON DAMONRO ####[facility] [address] [place] [address]Dr. Yilan ChangHemoglobin Ql (U)LARGEAbnormalNEGATIVEThe [facility] Comment on above:Performed By: #### CATHY DAMON ####[facility] [address] [place], [place] [address]Dr. Yilan ChangKetones Ql (U) NegativeNormalNEGATIVEThe [facility] HospitalComment on above:Performed By: #### CATHY DAMON ####[facility] [address] [place], [place] [address]Dr. Yilan ChangLEUKOCYTESTRACEAbnormalNEGATIVEOhio Valley Surgical HospitalComment on above:Performed By: #### CATHY DAMON ####[facility] El[address] [place], [place] [address]Dr. Yilan ChangNitrite Ql (U)NegativeNormal NEGATIVEOhio Valley Surgical HospitalComment on above:Performed By: #### CATHY DAMON ####[facility] [address] [place], [place] [address]Dr. Yilan ChangpH (U)7.0 [pH]Normal5-9[facility] HospitalComment on above: Performed By: #### CATHY DAMON ####[facility] [address] [place], [place] [address]Dr. Yilan ChangProtein (U) [Mass/Vol]100 mg/dLAbnormal NEGATIVE/ TRACEThe [facility] HospitalComment on above:Performed By: #### CATHY DAMON ####[facility] Taqiriefud[address] [place], [place] [address]Dr. Yilan ChangSPEC GRAVITY1.987Rkirhq4.005-<=1.025The [facility] Comment on above:Performed By: #### CATHY DAMON ####[facility] R[address] [place], [place] [address]Dr. Yilan ChangUR MICRO IND INDICATEDNormalThe [facility] HospitalComment on above:Performed By: #### CATHY DAMON ####[facility] [address] [place] [address]Dr. Yilan ChangUrobilinogen Qn (U)0.2 {[place]'U}/dLNormal0.2 - 1.0The [facility] HospitalComment on above:Performed By: #### ERURCATHY ####[facility] [address] [place], [place] [address]Dr. Yilan ChangPROF CHEM 8 (BAS METB)on 80-35-8086Nzumt gap [Moles/Vol]11.5 mmol/LNormalThe [facility] HospitalComment on above:Performed By: #### BMP ####[facility] Jrjikjerko[address] [place], [place] [address]Dr.Yilan ChangCalcium [Mass/Vol]8.9 mg/dLNormal8.5-10.1The [facility] HospitalComment on above:Performed By: #### BMP ####[facility] [address] [place], [place] [address]Dr.Yilan ChangChloride [Moles/Vol]103 mmol/WNduvdq96-773Pgg [facility] HospitalComment on above:Performed By: #### BMP ####[facility] [address] [place], [place] [address]Dr.Yilan ChangCO2 [Moles/Vol] 29.1 mmol/KHlhvzk03.0-32.0The [facility] HospitalComment on above:Performed By: #### BMP ####[facility] Q[address] [place], [place] [address]Dr.Yilan ChangCreatinine [Mass/Vol]0.79 mg/dLNormal0.55-1.02The [facility] HospitalComment on above:Performed By: #### BMP ####[facility] [address] [place], [place] [address]Dr.Yilan ChangEGFR-AF BAHRAINI>60Normal>=60The [facility] HospitalComment on above:Performed By: #### BMP ####[facility] [address] [place], [place] [address]Dr. Yilan ChangEGFR-NON AF BAHRAINI>60Normal>=60The [facility] HospitalComment on above:Performed By: #### BMP ####[facility] [address] [place] [address]Dr.iKrabrittney ChangGlucose [Mass/Vol]112 mg/dLCritically fket74-339Lnp [facility] HospitalComment on above:Performed By: #### BMP ####[facility] [address] [place] [address]Dr. Abby ChangPotassium [Moles/Vol]4.6 mmol/LNormal3.5-5.1The [facility] Comment on above:Performed By: #### BMP ####[facility] [address] [place] [address]Dr.Kiralan ChangSodium [Moles/Vol]139 mmol/L Uqzhpi782-123Jmq [facility] HospitalComment on above:Performed By: #### BMP ####[facility] [address] [place] [address]Dr. Abby ChangUrea nitrogen [Mass/Vol]12.0 mg/dLNormal7.0-18.0[facility] Comment on above:Performed By: #### BMP ####[facility] [address] [place] [address]Dr.Kirabrittney ChangUrea nitrogen/Creatinine [Mass ratio]15.2 mg/mgNoUniversity Hospitals [facility]age Medical CenterComment on above:Performed By: #### BMP ####[facility] [address] [place] [address]Dr. Abby SanchezPROTIMEon [id number] Coag (PPP) [Relative time]{INR}NormalThe [facility] HospitalComment on above:Performed By: #### PT, PTT #### [facility] Laboratory [address] [address] [address] Abby Lance GUIDELINESSEE BELOWAvita Health System Bucyrus HospitalComment on above:Result Comment: DESIRED INR: 2.0 - 3.0 CONDITIONS NOT LISTED BELOW 2.5 - 3.5 FOR PROSTHETIC HEART VALVE REPLACEMENT 2.5 - 3.5 RECURRENT THROMBOSIS Performed By: #### PT, PTT #### [facility] [address] [address] [address] Abby Kirby Coag (PPP) [Time]10.0 sNormal9.0-11.6The [facility] Comment on above:Performed By: #### PT, PTT #### [facility] [address] [address] [address] Abby Tomlinson [id number] Coag (Bld) [Time]27.9 mQlfvft84.3-36.2The [facility] HospitalComment on above:Performed By: #### PT, PTT #### [facility] [address] [address] [address] Abby GAMBINO ONLYon [id number]U SEEN The [facility] HospitalComascension borg[facility] on above:Performed By: #### NELSON UMICRO ####[facility] Icvjhtfpkp6100 [address] Abby SanchezBacteria identified Cx Nom (U)INDICATEDNoUniversity Hospitals [facility] Comment on above:Performed By: #### NELSON UMICRO ####[facility] Nakxtxhdcn0854 [address] Abby SanchezCASTNONE SEEN NormalNONE SEENThe [facility] HospitalComascension borg[facility] le[facility] hospital on above:Performed By: #### NELSON UMICRO ####[facility] Wuswfejwrc[address] [place] [address]Dr. Abby SanchezCrystals LM Nom (Urine sed)NONE SEENNormalNONE SEENThe [facility] HospitalComascension borg[facility] le[facility] on above:Performed By: #### NELSON UMICRO ####[facility] [address]px[address] [place] [address]Dr. Abby Sanchez Epithelial cells LM Ql (Urine sed)FEWAbnormalNONE SEEN /RAREThe [facility] on above:Performed By: #### NELSON, UMICRO ####[facility] F[address]shsbf[address] [place] [address]Dr. Abby SanchezMUCOUSNONE SEEN NormalNONE SEENThe [facility] HospitalComascension borg[facility] le[facility] hospital on above:Performed By: #### CATHY DAMON ####[facility] Mtnpbqvvtg94[address] [place] [address]Dr. Kiralan ChangRBC (U) [#/Vol]/uLAbnormal0-2The [facility] HospitalComment on above:Performed By: #### CATHY DAMON ####[facility] Mg[address]cosq[address] [place], [place] [id number]. Yilan ChangWBC5-10AbnormalNONE SEENThe [facility] HospitalComment on above:Performed By: #### CTAHY DAMON ####[facility] Iskwegaxiy[address] [place], [place] [id number]. Abby SanchezCBC AUTO DIFFon 27-21-1205DUXH #0.1 103/ulNormal0.0-0.1The [facility] HospitalComment on above:Performed By: #### CBC ####[facility] Vbdqkbqpps[address] [place], [place] [address]Dr.Abby ChangBasophils/100 WBC (Bld)0.9 %Normal 0.2-2.0The [facility] HospitalComment on above:Performed By: #### CBC ####[facility] Ttnjtojgzw[address] [place], [place] [address]Dr.Yilan ChangEO # 0.1 103/ulNormal0.0-0.7The [facility] HospitalComment on above:Performed By: #### CBC ####[facility] Pudehxmvil[address] [place], [place] [address]Dr. Abby ChangEosinophils/100 WBC (Bld)1.9 %Normal0.9-7.0The [facility] Comment on above:Performed By: #### CBC ####[facility] Tkkhuzcftt[address] [place], [place] [address]Dr.Abby ChangErythrocyte distribution width (RBC) [Ratio]13.8 %Ubaxyo23.0-15.0The [facility] HospitalComment on above: Performed By: #### CBC ####[facility] Udykpmganj[address] [place], [place] [address]Dr.Yilan ChangHematocrit (Bld) [Volume fraction]44.4 % Wazmhx78.0-48.0The [facility] HospitalComment on above:Performed By: #### CBC ####[facility] Fqnuzwptty0998 [place] [address]Dr. Abby SanchezHemoglobin (Bld) [Mass/Vol]14.5 g/qIPppmgj60.0-16.0The [facility] HospitalComment on above:Performed By: #### CBC ####[facility] Sbmwgknrli[address] [place], [place] [address]Dr.Abby ChangIG #0.02 10e3/ulNormal0.00-0.03The [facility] HospitalComment on above:Performed By: #### CBC ####[facility] Qizaunulzx920[address] [place], [place] [address]Dr. Abby ChangIG %0.4 %Normal0.0-0.5The [facility] HospitalComment on above:Performed By: #### CBC ####[facility] Akfcwonfmf689[address] [place], [place] [address]Dr.Abby ChangLYMPH #1.8 103/ulNormal1.2-3.8The [facility] Comment on above:Performed By: #### CBC ####[facility] Mmmduzelsw054[address] [place], [place] [address]Dr.Abby SanchezLymphocytes/100 WBC (Bld)30.9 %Liykrv01.5-60.0The [facility] HospitalComment on above:Performed By: #### CBC ####[facility] Spicfrcfpx[address] [place], [place] [address]Dr. Abby ChangMANUAL DIFF REQNONormalThe [facility] HospitalComment on above: Performed By: #### CBC ####[facility] Sxylqvasyf[address] [place], [place] [address]Dr.Abby SanchezMCH (RBC) [Entitic mass]31.2 pgNormal 26.7-34.0The [facility] HospitalComment on above:Performed By: #### CBC ####[facility] Qyaaxznpcf27[address] [place], [place] [address]Dr. Abby SanchezMCHC (RBC) [Mass/Vol]32.7 g/zIEfrelx01.9-35.2The [facility] Comment on above:Performed By: #### CBC ####[facility] Dsdtpetcoi[address] [place] [address]Dr.Abby SanchezMCV (RBC) [Entitic vol]95.5 fL Mfbndl10.0-99.0The [facility] HospitalComment on above:Performed By: #### CBC ####[facility] Zyndmvplhh28[address] [place] [address]Dr. Abby SanchezMONO #0.3 103/ulNormal0.3-0.8The [facility] HospitalComment on above: Performed By: #### CBC ####[facility] Xjhzkcenls2178 [place] [address]Dr.Abby ChangMonocytes/100 WBC (Bld)5.3 %Normal 1.7-12.0The [facility] HospitalComment on above:Performed By: #### CBC ####[facility] Phctnprfqv47[address] [place], [place] [address]Dr. Abby ChangNEUT #3.5 103/ulNormal1.4-6.5The [facility] HospitalComment on above: Performed By: #### CBC ####[facility] Yskfbtwjxr[address] [place], [place] [address]Dr.Abby ChangNeutrophils/100 WBC (Bld)60.6 %Normal 43.0-75.0The [facility] HospitalComment on above:Performed By: #### CBC ####[facility] Acokyndcnw15[address] [place] [address]Dr. Abby SanchezPlatelet mean volume (Bld) [Entitic vol]9.6 fLNormal9.5-13.5The [facility] HospitalComment on above:Performed By: #### CBC ####[facility] Ezryenpjpn[address] [place] [address]Dr.Kiralan DulfpMUO710 103/ul Dejemr841-204Ukt [facility] HospitalComment on above:Performed By: #### CBC ####[facility] Fjmnspwgcz27[address] [place] [address]DrChandrakant SanchezRBC4.65 106/ulNormal4.20-5.40The [facility] HospitalComascension borg[facility] le[facility] on above: Performed By: #### CBC ####[facility] Dkqcahzwgq77[address] [place] [address]DrMarcos SanchezWBC5.7 103/ulNormal4.0-11.0The [facility] HospitalComment on above:Performed By: #### CBC ####[facility] Senjqfvtwf[address] [place] [address]Dr.Yilan SanchezGLYCOHEMOGLOBIN A1Con 08-02-5749JZN RECOMMENDATIONSEE [facility] CenterComascension borg[facility] on above:Result Comment: ADA RECOMMENDED LIMIT 4.0 - 6.0 ADA THERAPEUTIC TARGET < 7.0 ACTION SUGGESTED > 7.0Performed By: #### A1C #### [facility] [address] [place] [address] Dr. Abby SanchezGlucose [Mass/Vol]131 mg/dLNoUniversity Hospitals Port[facility] Medical CenterComascension borg[facility] lee hospital on above:Performed By: #### A1C #### [facility] [address] [address] [address] Abby SanchezHbA1c (Bld) [Mass fraction]6.2 %Normal4.5-6.2The [facility] on above:Performed By: #### A1C #### [facility] [address] [address] [address] Abby SanchezLIPASEon 97-67-5542Enxddi [Catalytic activity/Vol]117.0 U/LNormal 73.0-393.0The [facility] on above:Performed By: #### CMP, LIPA, LIPID #### [facility] [address] [address] [address] Abby SanchezLIPID PROFILEon 24-30-3430YJPJ-HDL RATIO NORMSEE [facility] CenterComascension b[facility] on above:Result Comment: 3.3 - 4.4 LOW RISK 4.4 - 7.1 AVERAGE RISK 7.1 - 11.0 MODERATE RISK >11.0 HIGH RISKPerformed By: #### CMP, LIPA, LIPID #### [facility] [address] [address] [address] Abby SanchezCholesterol [Mass/Vol]220 mg/dLCritically high<=200The [facility] on above:Performed By: #### CMP, LIPA, LIPID #### [facility] [address] [place] [address] Dr. Abby SanchezCholesterol in HDL [Mass/Vol]52 mg/eECexzqv10-52Gio [facility] HospitalComasc[facility] on above:Performed By: #### CMP, LIPA, LIPID #### [facility] [address] [place] [address] Dr. Abby SanchezCholesterol in LDL [Mass/Vol]142.8 mg/dLAvita Health System Bucyrus HospitalComascension borgess lee hospital on above:Performed By: #### CMP, LIPA, LIPID #### [facility] [address] [place] [address] Dr. Abby Westestersamuel.total/Cholesterol in HDL [Mass ratio]4.2 {ratio} NormalThe [facility] on above:Performed By: #### CMP, LIPA, LIPID #### [facility] [address] [place] [address] Dr. Abby Ramirez NORMAL> or = 60 mg/dl - LOW CARDIOVASCULAR RISK <40 mg/dl - HIGH CARDIOVASCULAR RISKAvita Health System Bucyrus HospitalComascension borg[facility] lee hospital on above:Performed By: #### CMP, LIPA, LIPID #### [facility] [address] [place] [address] Dr. Abby SanchezLDL CALC NORMALSEE BELOWAvita Health System Bucyrus HospitalComascension borgess lee hospital on above:Result Comment: <100 mg/dl OPTIMAL 100 - 129 mg/dl NEAR OR ABOVE OPTIMAL 130 - 159 mg/dl BORDERLINE HIGH 160 - 189 mg/dl HIGH >190 mg/dl VERY HIGH Performed By: #### CMP, LIPA, LIPID #### [facility] [address] [place] [address] Dr. Abby SanchezTriglyceride [Mass/Vol]126 mg/dLNormal<=150The [facility] Comment on above:Performed By: #### CMP, LIPA, LIPID #### [facility] [address] [address] [address] Abby SanchezVLDL CALC25.2 mg/dLNormalThe [facility] HospitalComment on above: Performed By: #### CMP, LIPA, LIPID #### [facility] [address] [address] [address] Abby SanchezPROF 14(COMP METB)on 77-13-9613Ogpqwri [Mass/Vol]3.3 g/dL Critically low3.4-5.0The [facility] HospitalComment on above:Performed By: #### CMP, LIPA, LIPID ####[facility] Jbsqdqrdkk[address] [place] [address]Dr. Abby SanchezAlbumin/Globulin [Mass ratio]0.8 {ratio}NormalThe [facility] HospitalComment on above:Performed By: #### CMP, LIPA, LIPID ####[facility] Ypvndobzxi[address] [place] [address]Dr. Abby SanchezALP [Catalytic activity/Vol]111 U/MSybjkg50-008Ejg [facility] Comment on above:Performed By: #### CMP, LIPA, LIPID ####[facility] Twnofhuthk[address] [place] [address]Dr. Abby SanchezALT [Catalytic activity/Vol]25 U/XUzxolu09-18Fam [facility] HospitalComment on above:Performed By: #### CMP, LIPA, LIPID ####[facility] Bpfvufmifn[address] [place] [address]Dr. Abby SanchezAnion gap [Moles/Vol]11.8 mmol/LNormal The [facility] HospitalComment on above:Performed By: #### CMP, LIPA, LIPID ####[facility] Hbafwximgf[address] [place] [address]Dr. Abby ChangAST [Catalytic activity/Vol]19 U/SUbltwp37-75Hue [facility] Comment on above:Performed By: #### CMP, LIPA, LIPID ####[facility] Qufkhfopyr[address] [place] [address]Dr. Yilan ChangBilirubin [Mass/Vol]0.4 mg/dLNormal0.2-1.0The [facility] HospitalComment on above:Performed By: #### CMP, LIPA, LIPID ####[facility] Xfxuimlrdm[address] [place] [address]Dr. Yilan ChangCalcium [Mass/Vol]9.1 mg/dLNormal 8.5-10.1The [facility] HospitalComment on above:Performed By: #### CMP, LIPA, LIPID ####[facility] Bhtegzcrgd[address] [place], [place] [address]Dr. Yilan ChangChloride [Moles/Vol]103 mmol/YMusduz87-708Hdu [facility] HospitalComascension borg[facility] le[facility] on above:Performed By: #### CMP, LIPA, LIPID ####[facility] Ryzsiylbkm[address] [place], [place] [address]Dr. Yilan ChangCO2 [Moles/Vol]28.8 mmol/ZYjhvqu88.0-32.0The [facility] HospitalComment on above: Performed By: #### CMP, LIPA, LIPID ####[facility] Zkhyoqjjni[address] [place], [place] [address]Dr. Yilan ChangCreatinine [Mass/Vol]0.76 mg/dL Normal0.55-1.02The [facility] HospitalComascension borg[facility] le[facility] hospital on above:Performed By: #### CMP, LIPA, LIPID ####[facility] Cfncqxxuyu[address] [place], [place] [address]Dr. Yilan ChangEGFR-AF BAHRAINI>60Normal>=60The [facility] HospitalComment on above:Performed By: #### CMP, LIPA, LIPID ####[facility] Szlodlswac[address] [place], [place] [address]Dr. Yilan ChangEGFR-NON AF BAHRAINI>60Normal >=60The [facility] on above:Performed By: #### CMP, LIPA, LIPID ####[facility] Yctubeyjtv[address] [place], [place] [address]Dr. Yilan ChangGlobulin (S) [Mass/Vol]4.1 g/dLAvita Health System Bucyrus HospitalComment on above:Performed By: #### CMP, LIPA, LIPID ####[facility] Hmyhovhqbi[address] [place] [address]Dr. Yilan ChangGlucose [Mass/Vol]111 mg/dL Critically kpnu88-315Nyi [facility] HospitalComment on above:Performed By: #### CMP, LIPA, LIPID ####[facility] Nlbmgyfzvs[address] [place] [address]Dr. Yilan ChangPotassium [Moles/Vol]4.6 mmol/LNormal3.5-5.1The [facility] HospitalComment on above:Performed By: #### CMP, LIPA, LIPID ####[facility] Nsrscyobkc[address] [place] [address]Dr. Yilan ChangProtein [Mass/Vol]7.4 g/dLNormal6.4-8.2The [facility] HospitalComascension borg[facility] le[facility] hospital on above:Performed By: #### CMP, LIPA, LIPID ####[facility] Njopyibmeo[address] [place] [address]Dr. Yilan ChangSodium [Moles/Vol]139 mmol/DIshxfi882-627Wfz [facility] HospitalComascension borg[facility] on above: Performed By: #### CMP, LIPA, LIPID ####[facility] Tycuzzrmrq[address] [place] [address]Dr. Yilan ChangUrea nitrogen [Mass/Vol]12.0 mg/dL Normal7.0-18.0The [facility] HospitalComascension b[facility] on above:Performed By: #### CMP, LIPA, LIPID ####[facility] Zbqkwcyhwn[address] [place] [address]Dr. Yilan ChangUrea nitrogen/Creatinine [Mass ratio]15.8 mg/mgAvita Health System Bucyrus HospitalComascension borgess lee hospital on above:Performed By: #### CMP, LIPA, LIPID ####[facility] R[address]nwflmuy[address] [place] [address]Dr. Yilan ChangINFLUENZA A AND B AGon 70-90-5287TMAROMJKVDDUN BELOWNormalThe [facility]ra HospitalComment on above:Result Comment: Negative for Flu A protein angiten. Infection due to Flu A cannot be ruled out. FluA angiten in the sample may be below the detection limit of the test.Performed By: #### INFLUAB #### [facility] [address] [place] [address] Dr. Abby DangUBNEGHSEE [facility] Medical CenterComment on above: Result Comment: Negative for Flu B protein antigen. Infection due to Flu B cannot be ruled out. FluB antigen in the sample may be below the detection limit of the test.Performed By: #### INFLUAB #### [facility] [address] [place] [address] Dr. Abby Nichols AGNegativeNormalNEGATIVE SEE COMMENTThe [facility] on above:Performed By: #### INFLUAB #### [facility] [address] [place] [address] Dr. Abby Karimi AGNegativeNormalNEGATIVE SEE COMMENTThe [facility] on above:Performed By: #### INFLUAB #### [facility] [address] [place] [address] Dr. Abby SanchezINTERNAL CONTROLSWithin Normal LimitsNormalWithin Normal Limits The [facility] on above:Performed By: #### INFLUAB #### [facility] [address] [place] [address] Dr. Abby SanchezXR CHEST 1 Von 81-78-4559EP CHEST 1 VEXAMINATION: XR CHEST 1 V HISTORY: COUGH COMPARISON: No relevant [...] Electronically authenticated by: CEASAR RENTERIA Date: 2021-10-14 13:03[facility] HospitalCovid-19 PCR (CVDTBH)on 53-56-4853LHBQ-CoV-2 (COVID-19) RNA HAO+probe Ql (Unsp spec)DetectedCritically abnormalNOT DETECTEDThe Peoples Hospitalment on above:Result Comment: This test is not yet approved or cleared by the [place] FDA. When there are no FDA-approved or cleared tests available, and other criteria are met, FDA can make tests available under an emergency access mechanism called an Emergency Use Authorization (EUA). The EUA for this test is supported by the Benzene Operator of Health and Human Service's declaration that circumstances exist to justify the emergency use of in vitro diagnostics for the detection and/or diagnosis of the virusthat causes COVID-19. This EUA will remain in effect for the duration of the COVID-19 declaration ju stifying emergency of IVDs, unless it is terminated or revoked by the FDA (after which the test mayno longer be used).Performed By: #### CVDTBH ####[facility] [address]biggsyfv[address] [place], [place] [address]Jf. Abby ChangXR HAND RIGHT (MIN 3 VIEWS)on 05-25-0878KS HAND RIGHT (MIN 3 VIEWS)EXAMINATION: THREE XRAY VIEWS OF THE RIGHT HAND [...] Signed by: Deyanira Cortés MD 04/25/19 Final resultNormalMerMt. Sinai HospitalC-Reactive Proteinon [id number] [Mass/Vol]57.2 mg/LHigh0.0-5.0MerMt. Sinai HospitalComment on above:Performed By: #### CDP, CRP #### [facility] [address] [place] [address] Faucet Polisher: Wang Day [facility] with Diffon 68-29-4046Hzd. Basophil0.04 k/uL Normal0.00-0.20[facility] HospitalComment on above:Performed By: #### CDP, CRP #### [address] [place], [place] [address] Faucet Polisher: Pam Bullock.Imm.Granulocyte0.03 k/uLNormal0.00-0.30[facility] HospitalComment on above:Performed By: #### CDP, CRP #### [address] [place] [address] Faucet Polisher: Pam Bullock.Neutrophil (Seg)6.82 k/uLNormal1.50-8.10[facility] HospitalComment on above:Performed By: #### CDP, CRP #### [address] [place] [address] Faucet Polisher: Wang Day MDBasophils/100 WBC (Bld)0 %Normal0-2MGreen Cross Hospital HospitalComment on above:Performed By: #### CDP, CRP #### [address] [place] [address] Faucet Polisher: Wang Day MDEosinophils (Bld) [#/Vol]0.11 10*3/uLNormal 0.00-0.44[facility] HospitalComment on above:Performed By: #### CDP, CRP #### [address] [place] [address] Faucet Polisher: LUIS ALFREDO Bullockosinophils/100 WBC (Bld)1 %Normal1-4[facility] HospitalComment on above:Performed By: #### CDP, CRP #### [address] [place] [address] Faucet Polisher: Wang Day MDErythrocyte distribution width (RBC) [Ratio]12.6 %Xpokta86.8-14.4[facility] HospitalComment on above:Performed By: #### CDP, CRP #### [address] [place] [address] Faucet Polisher: Wang Day MDHematocrit (Bld) [Volume fraction]36.5 %Normal 36.3-47.1MGreen Cross Hospital HospitalComment on above:Performed By: #### CDP, CRP #### [address] [place], [facility]83 Faucet Polisher: Wang Day MDHemoglobin (Bld) [Mass/Vol]12.1 g/dLNormal 11.9-15.1MGreen Cross Hospital HospitalComment on above:Performed By: #### CDP, CRP #### [address] [place], [place] [address] Faucet Polisher: Wang Day MDImmature granulocytes (Bld) [#/Vol]0 %Normal0 [facility] HospitalComment on above:Performed By: #### CDP, CRP #### [address] [place], [place] [address] Faucet Polisher: Eliceo Bullockmphocytes (Bld) [#/Vol]1.57 10*3/uLNormal 1.10-3.70[facility] HospitalComment on above:Performed By: #### CDP, CRP #### [address] [place], [facility]83 Faucet Polisher: Eliceo Bullockmphocytes/100 WBC (Bld)17 %Ojw27-16RwjktGuernsey Memorial HospitalComment on above:Performed By: #### CDP, CRP #### [address] [place], [facility]83 Faucet Polisher: ESTEPHANIE BullockCH (RBC) [Entitic mass]31.3 daUrjhdq04.2-33.5 [facility] HospitalComment on above:Performed By: #### CDP, CRP #### [address] [place], [place] [address] Faucet Polisher: Wang Shay, MDMCHC (RBC) [Mass/Vol]33.2 g/jIGczzkk82.4-34.8 [facility] HospitalComment on above:Performed By: #### CDP, CRP #### [address] [place], [facility]83 Faucet Polisher: Wang Day MDMCV (RBC) [Entitic vol]94.6 gBUnqjln24.6-102.9 [facility] HospitalComment on above:Performed By: #### CDP, CRP #### [address] [place], [facility]83 Faucet Polisher: ESTEPHANIE Bullockonocytes (Bld) [#/Vol]0.84 10*3/uLNormal 0.10-1.20[facility] HospitalComment on above:Performed By: #### CDP, CRP #### [address] [place], [place] [address] Faucet Polisher: ESTEPHANIE Bullockonocytes/100 WBC (Bld)9 %Normal3-12[facility] HospitalComment on above:Performed By: #### CDP, CRP #### [address] [place], [place] [facility] Faucet Polisher: Aranza Bullockutrophil (Seg)73 %Hgyl50-81Blppe Tiffin HospitalComment on above:Performed By: #### CDP, CRP #### [address] [place], [facility]83 Faucet Polisher: Wang Day MDNRBC Automated0.0 per 100 WBCNormal0.0C[facility] Hospitalcy [place] HospitalComment on above:Performed By: #### CDP, CRP #### [address] [place], [facility]83 Faucet Polisher: Wang Day MDPlatelet mean volume (Bld) [Entitic vol]9.8 fL Normal8.1-13.5[facility] HospitalComment on above:Performed By: #### CDP, CRP #### [facility] [address] [place] [address] Faucet Polisher: Yusuf Bullock (d) [#/Vol]290 10*3/aIForckh876-912 [facility] HospitalComment on above:Performed By: #### CDP, CRP #### [facility] [address] [place] [address] Faucet Polisher: KAHLIL Bullock (Bld) [#/Vol]3.86 10*6/uLLow3.95-5.11[facility] [place] HospitalComment on above:Performed By: #### CDP, CRP #### [address] [place] [address] Faucet Polisher: DALTON Bullock (Bld) [#/Vol]9.4 10*3/uLNormal3.5-11.3MGreen Cross Hospital HospitalComment on above:Performed By: #### CDP, CRP #### [address] [place] [address] Faucet Polisher: Stephany Bullock PerformedNOT REPORTEDNormalMercy [place] HospitalComment on above:Performed By: #### CDP, CRP #### [address] [place] [address] Faucet Polisher: Yusuf Bullock (d) [#/Vol]NOT REPORTEDNormalMercy [place] HospitalComment on above:Performed By: #### CDP, CRP #### [facility] [address] [address] Faucet Polisher: KAHLIL Bullock morphology finding Nom (Bld)NOT REPORTED NormalMercy [place] HospitalComment on above:Performed By: #### CDP, CRP #### [address] [place], [place] [address] Faucet Polisher: ROXANA BullockBC MorphologyNOT REPORTEDNormalMerFostoria City Hospital HospitalComment on above:Performed By: #### CDP, CRP #### [address] [place] [id number] Faucet Polisher: Wang Day MDUrinalysis w/ Microon 12-17-2018-----NormalMercy [place] HospitalComment on above:Performed By: #### UAMIC #### [address] [place] [address] Faucet Polisher: Wang Day MDAcetoacetic Acid,UrTRACEAbnormalNEGMerFostoria City Hospital HospitalComment on above:Performed By: #### UAMIC #### [address] [place] [address] Faucet Polisher: Raji Bullockrphous sediment LM Ql (Urine sed)TRACEAbnormal NONEMerFostoria City Hospital HospitalComment on above:Performed By: #### UAMIC #### [address] [place], [place] [address] Faucet Polisher: Ness Bullock LM.HPF (Urine sed) [#/Area]TRACEAbnormal NONEJ.W. [facility] Hospital HospitalComment on above:Performed By: #### UAMIC #### [address] [place], [place] [address] Faucet Polisher: Wang Day MDBilirubin, SemiQt,UrNegativeNormalNEGMercy [place] HospitalComment on above:Performed By: #### UAMIC #### [address] [place] [address] Faucet Polisher: DARI Bullockolor (U)YELLOWNormalYChildren's Hospital for Rehabilitation Comment on above:Performed By: #### UAMIC #### [address] [place] [address] Faucet Polisher: Wang Day MDEpithelial cells LM.HPF (Urine sed) [#/Area]2 TO 8Prypra4-36Uybgh [facility] HospitalComment on above:Performed By: #### UAMIC #### [facility] [address] [place], [place] [id number] Faucet Polisher: Wang Day MDGlucose Ql (U)NegativeNormalNEGGuernsey Memorial HospitalComment on above:Performed By: #### UAMIC #### [facility] [address] [place], [place] [phone] Faucet Polisher: Wang Day MDHemoglobin, Ur1+AbnormalNEGGuernsey Memorial Hospital Comment on above:Performed By: #### UAMIC #### [facility] [address] [place], [place] [phone] Faucet Polisher: Wang Day MDLeukocyte esterase Test strip Ql (U)Negative NormalNEGGuernsey Memorial HospitalComment on above:Performed By: #### UAMIC #### [facility] [address] [place], [place] [id number] Faucet Polisher: Wang Day MDNitrite,UrNegativeNoUniversity Hospitals St. [facility] Comment on above:Performed By: #### UAMIC #### [facility] [address] [place], [place] [phone] Faucet Polisher: Wang Day [facility]H (U)7.5 [pH]Normal5.0-9.0[facility] Comment on above:Performed By: #### UAMIC #### [facility] [address] [place], [place] [id number] Faucet Polisher: SHEILA Bullockrotein Ql (U)TRACEAbnormalNEGGuernsey Memorial HospitalComment on above:Performed By: #### UAMIC #### [facility] [address] [place] [address] Faucet Polisher: DAVE BullockBC (U) [#/Vol]10 TO 70Kkdwjb0-2Jifxq [place] HospitalComment on above:Performed By: #### UAMIC #### [facility] [address] [place], [place] [id number] Faucet Polisher: JAM Bullockpecific gravity (U) [Rel density]1.010Normal 1.010-1.020[facility] [place] HospitalComment on above:Performed By: #### UAMIC #### [facility] [address] [place] [address] Faucet Polisher: NIKOLAY BullockurbidityCLEARRay County Memorial HospitalalCGeorgetown Behavioral Hospital Comment on above:Performed By: #### UAMIC #### [facility] [address] [place], [facility]83 Faucet Polisher: Ruthy Bullock,UrELEVATEDAbnormalNORMGuernsey Memorial HospitalComment on above:Performed By: #### UAMIC #### [facility] [address] [place], [facility]83 Faucet Polisher: ROXANA BullockBC (U) [#/Vol]0 TO 3Qszjor7-6Qcxac [place] HospitalComment on above:Performed By: #### UAMIC #### [facility] [address] [place], [facility]83 Faucet Polisher: Joann Bullock LM.LPF (Urine sed) [#/Area]NOT REPORTED NormalJ.W. [facility] Memorial Hospital HospitalComment on above:Performed By: #### UAMIC #### [facility] [address] [place], [place] [phone] Faucet Polisher: Bobo BullockNOT REPORTEDNormalGuernsey Memorial Hospital Comment on above:Performed By: #### UAMIC #### [facility] [address] [place], [place] [phone] Faucet Polisher: Wang Shay, MDCrystals LM Nom (Urine sed)NOT REPORTEDNormalNONE [facility] HospitalComment on above:Performed By: #### UAMIC #### [facility] [address] [place] [address] Dr. [place], [place] [phone] Faucet Polisher: Wang Day MDEpithelial, RenalNOT MHRPQHDLVsynli2Njmtb [place] HospitalComment on above:Performed By: #### UAMIC #### [facility] [address] [place] [address] Faucet Polisher: Katy Bullock StrandsNOT REPORTEDNormalNONEMeNorth Sunflower Medical Center HospitalComment on above:Performed By: #### UAMIC #### [address] [place], [place] [phone] Faucet Polisher: Kiara Bullock ObservationsNOT REPORTEDNormalNREQJ.W. [facility] HospitalComment on above:Performed By: #### UAMIC #### [address] [place] [address] Faucet Polisher: Wang Day MDTrichomonasNOT REPORTEDNormalNONEMeNorth Sunflower Medical Center HospitalComment on above:Performed By: #### UAMIC #### [address] [place] [address] Faucet Polisher: Tabitha Bullock LM Ql (Urine sed)NOT REPORTEDNormalNONE [facility] HospitalComment on above:Performed By: #### UAMIC #### [address] [place] [address] Faucet Polisher: Rajesh Bullock Metabolic Profon 12-13-2018(cont.)Normal [facility] HospitalComment on above:Result Comment: Average GFR for 50-59 years old: 93 mL/min/1.73sq m Chronic Kidney Disease: <60 mL/min/1.73sq m Kidney failure: <15 mL/min/1.73sq m eGFR calculated using average adult body mass. Additional eGFR calculator available at: http://www.FishBrain.com/multiple_crcl_2012.htmPerformed By: #### HAFSA, BMP #### [facility] [address] [address] Faucet Polisher: Sebastián Garsia MDAnion gap [Moles/Vol]11 mmol/LNormal9-17[facility] HospitalComment on above:Performed By: #### CBC, BMP #### [facility] [address] [place] [address] Faucet Polisher: Sebastián Garsia MDCalcium [Mass/Vol]8.3 mg/dLLow8.6-10.4[facility] HospitalComment on above:Performed By: #### CBC, BMP #### [address] [address] Faucet Polisher: Sebastián Garsia MDChloride [Moles/Vol]106 mmol/NMhrwnb61-170TqdqnMercy Health Lorain HospitalComment on above:Performed By: #### CBC, BMP #### [facility] [employer] [address] [place] [address] Faucet Polisher: Sebastián Garsia MDCO2 [Moles/Vol]24 mmol/JTqxism06-42CdclmMercy Health Lorain HospitalComment on above:Performed By: #### CBC, BMP #### [address] [address] Faucet Polisher: DARI Millerreatinine [Mass/Vol]0.60 mg/dLNormal0.50-0.90 [facility] HospitalComment on above:Performed By: #### CBC, BMP #### [facility] [employer] [address] [place] [address] Faucet Polisher: Sebastián Garsia MDGFR, Amer>60Normal>60[facility] HospitalComment on above:Performed By: #### CBC, BMP #### [facility] [address] [place] [address] Faucet Polisher: Sebastián Garsia MDGFR,non Amer>60Normal>60[facility] HospitalComment on above:Performed By: #### CBC, BMP #### [facility] [address] [place] [address] Faucet Polisher: Sebastián Garsia MDGlucose [Mass/Vol]106 mg/xTGiyj68-26DitgcLoma Linda University Medical CenterComment on above:Performed By: #### CBC, BMP #### [facility] [address] [place] [address] Faucet Polisher: Sebastián Garsia MDPotassium [Moles/Vol]4.4 mmol/LNormal3.7-5.3 [facility] HospitalComment on above:Performed By: #### CBC, BMP #### [facility] [address] [place] [address] Faucet Polisher: Sebastián Garsia MDSodium [Moles/Vol]141 mmol/PUzhnlq215-778DjsnaMercy Health Lorain HospitalComment on above:Performed By: #### CBC, BMP #### [facility] [address] [place] [address] Faucet Polisher: Sebastián Garsia MDUrea nitrogen [Mass/Vol]11 mg/dLNormal6-20[facility] HospitalComment on above:Performed By: #### CBC, BMP #### [facility] [address] [place] [address] Faucet Polisher: Sebastián Garsia MDBUN/CRE RatioNOT REPORTEDNormal9-20[facility] HospitalComment on above:Performed By: #### CBC, BMP #### [facility] [address] [place] [address] Faucet Polisher: JAM Millertaging:NOT REPORTEDNormalMercy Health Lorain HospitalComment on above:Performed By: #### CBC, BMP #### [address] [address] Faucet Polisher: Aleks Miller 21-74-3765Iubvltdmfmc distribution width (RBC) [Ratio]13.1 %Ifaznt19.8-14.4[facility] HospitalComment on above:Performed By: #### CBC, BMP #### [address] [address] Faucet Polisher: Sebastián Garsia MDHematocrit (Bld) [Volume fraction]35.7 %Low 36.3-47.1MLoma Linda University Medical CenterComment on above:Performed By: #### CBC, BMP #### [address] [address] Faucet Polisher: Sebastián Garsia MDHemoglobin (Bld) [Mass/Vol]11.6 g/dLLow11.9-15.1 [facility] HospitalComment on above:Performed By: #### CBC, BMP #### [address] [address] Faucet Polisher: ESTEPHANIE MillerCH (RBC) [Entitic mass]31.6 kxMvnugq96.2-33.5 [facility] HospitalComment on above:Performed By: #### CBC, BMP #### [address] [address] Faucet Polisher: ESTEPHANIE MillerCHC (RBC) [Mass/Vol]32.5 g/wOVmbdjj83.4-34.8 [facility] HospitalComment on above:Performed By: #### CBC, BMP #### [address] [address] Faucet Polisher: ESTEPHANIE MillerCV (RBC) [Entitic vol]97.3 yWMlpdny74.6-102.9 [facility] HospitalComment on above:Performed By: #### CBC, BMP #### [address] [address] Faucet Polisher: ANILA Miller Automated0.0 per 100 WBCNormal0.0[facility] HospitalComment on above:Performed By: #### CBC, BMP #### [address] [address] Faucet Polisher: Alexey Millerteradha mean volume (Bld) [Entitic vol]10.1 fL Normal8.1-13.5[facility] HospitalComment on above:Performed By: #### CBC, BMP #### [address] [address] Faucet Polisher: Alexey Millertedania (Bld) [#/Vol]260 10*3/wLZizfhq888-646 [facility] HospitalComment on above:Performed By: #### CBC, BMP #### [address] [address] Faucet Polisher: KAHLIL Miller (Bld) [#/Vol]3.67 10*6/uLLow3.95-5.11[facility] HospitalComment on above:Performed By: #### CBC, BMP #### [address] [address] Faucet Polisher: DALTON Miller (Bld) [#/Vol]9.5 10*3/uLNormal3.5-11.3MLoma Linda University Medical CenterComment on above:Performed By: #### CBC, BMP #### [address] [address] Faucet Polisher: Rajesh Miller Metabolic Profon 12-08-2018(cont.)Normal [facility] HospitalComment on above:Result Comment: Average GFR for 50-59 years old: 93 mL/min/1.73sq m Chronic Kidney Disease: <60 mL/min/1.73sq m Kidney failure: <15 mL/min/1.73sq m eGFR calculated using average adult body mass. Additional eGFR calculator available at: http://www.Teklatech/multiple_crcl_2012.htmPerformed By: #### CDP, BMP #### [address] [place], [place] [address]83 Faucet Polisher: Wang Day MDAnion gap [Moles/Vol]10 mmol/LNormal9-17[facility] HospitalComment on above:Performed By: #### CDP, BMP #### [address] [place], [place] [address]83 Faucet Polisher: Wang Day MDBUN/CRE Ljnuj92Vlrkfa3-73[facility] Comment on above:Performed By: #### CDP, BMP #### [address] [place] [address] Faucet Polisher: DARI Bullockalcium [Mass/Vol]9.6 mg/dLNormal8.6-10.4[facility] HospitalComment on above:Performed By: #### CDP, BMP #### [address] [place] [address] Faucet Polisher: DARI Bullockhloride [Moles/Vol]101 mmol/UWryvse44-936HxwthGuernsey Memorial HospitalComment on above:Performed By: #### CDP, BMP #### [address] [place] [address] Faucet Polisher: Wang Day MDCO2 [Moles/Vol]26 mmol/CQxgdcm30-51MfhioGuernsey Memorial HospitalComment on above:Performed By: #### CDP, BMP #### [address] [place], [place] [address]783 Faucet Polisher: Wang Day MDCreatinine [Mass/Vol]0.68 mg/dLNormal0.50-0.90 [facility] HospitalComment on above:Performed By: #### CDP, BMP #### [address] [place], [place] 564[address]83 Faucet Polisher: Wang Day MDGFR, Amer>60Normal>60[facility] Hospital Comment on above:Performed By: #### CDP, BMP #### [address] [place], [place] [address]83 Faucet Polisher: Wang Day MDGFR,non Amer>60Normal>60[facility] HospitalComment on above:Performed By: #### CDP, BMP #### [address] [place], [place] [address]283 Faucet Polisher: Wang Day MDGlucose [Mass/Vol]95 mg/uUHqqbjn31-69Grego [facility]iff[facility] HospitalComment on above:Performed By: #### CDP, BMP #### [address] [place], [place] [address] Faucet Polisher: Wang Day MDPotassium [Moles/Vol]4.5 mmol/LNormal3.7-5.3MGreen Cross Hospital HospitalComment on above:Performed By: #### CDP, BMP #### [address] [place], [place] [address] Faucet Polisher: JAM Bullockodium [Moles/Vol]137 mmol/DTdfrox236-471Agakp [facility] HospitalComment on above:Performed By: #### CDP, BMP #### [address] [place], [place] [address]295683 Faucet Polisher: JAM Bullocktaging:NormalJ.W. [facility] HospitalComment on above:Result Comment: Stage 1: Some kidney damage normal GFR Stage 2: Mild kidney damage GFR 60-89 Stage 3: Moderate kidney damage GFR 30-59 Stage 4: Severe kidney damage GFR 15-29 Stage 5: Severe kidney damage GFR <15 ESRD - chronic treatment by dialysis or transplantPerformed By: #### CDP, BMP #### [address] [place], [place] [address] Faucet Polisher: Wang Day MDUrea nitrogen [Mass/Vol]10 mg/dLNormal6-20[facility] HospitalComment on above:Performed By: #### CDP, BMP #### [address] [place], [place] [address] Faucet Polisher: Wang Day [facility] with Diffon [id number]. Basophil0.06 k/uL Normal0.00-0.20MerFostoria City Hospital HospitalComment on above:Performed By: #### DORETHA, BMP #### [address] [place], [place] [address] Faucet Polisher: Pam Bullock.Imm.Granulocyte0.03 k/uLNormal0.00-0.30MerFostoria City Hospital HospitalComment on above:Performed By: #### DORETHA, BMP #### [address] [place], [facility]83 Faucet Polisher: Pam Bullock.Neutrophil (Seg)5.90 k/uLNormal1.50-8.10MerFostoria City Hospital HospitalComment on above:Performed By: #### CDP, BMP #### [address] [place], [place] [address] Faucet Polisher: Wang Day MDBasophils/100 WBC (Bld)1 %Normal0-2[facility] [place] HospitalComment on above:Performed By: #### CDP, BMP #### [address] [place], [facility]83 Faucet Polisher: Wang Day MDEosinophils (Bld) [#/Vol]0.16 10*3/uLNormal 0.00-0.44[facility] [place] HospitalComment on above:Performed By: #### CDP, BMP #### [address] [place], [place] [address] Faucet Polisher: Wang Day MDEosinophils/100 WBC (Bld)2 %Normal1-4[facility] HospitalComment on above:Performed By: #### CDP, BMP #### [address] [place], [place] [address] Faucet Polisher: Wang Day MDErythrocyte distribution width (RBC) [Ratio]12.9 %Ocbvvl99.8-14.4[facility] HospitalComment on above:Performed By: #### CDP, BMP #### [address] [place] [address] Faucet Polisher: Wang Day MDHematocrit (Bld) [Volume fraction]44.4 %Normal 36.3-47.1MercOhioHealth Dublin Methodist Hospital HospitalComment on above:Performed By: #### CDP, BMP #### [address] [place], [place] [address] Faucet Polisher: Wang Day MDHemoglobin (Bld) [Mass/Vol]14.3 g/dLNormal 11.9-15.1MGreen Cross Hospital HospitalComment on above:Performed By: #### CDP, BMP #### [address] [place], [place] [address] Faucet Polisher: Wang Day MDImmature granulocytes (Bld) [#/Vol]0 %Normal0 [facility] HospitalComment on above:Performed By: #### CDP, BMP #### [address] [place], [facility]83 Faucet Polisher: Wang Day MDLymphocytes (Bld) [#/Vol]2.20 10*3/uLNormal 1.10-3.70[facility] HospitalComment on above:Performed By: #### CDP, BMP #### [address] [place], [place] [address] Faucet Polisher: Eliceo Bullockmphocytes/100 WBC (Bld)25 %Oocjwa23-86Bjafw [facility] HospitalComment on above:Performed By: #### CDP, BMP #### [address] [place], [place] [address] Faucet Polisher: ESTEPHANIE BullockCH (RBC) [Entitic mass]31.3 qxRkhmvd17.2-33.5 [facility] HospitalComment on above:Performed By: #### CDP, BMP #### [address] [place] [address] Faucet Polisher: FLORENCIO BullockC (RBC) [Mass/Vol]32.2 g/oJCdwuvf67.4-34.8 [facility] HospitalComment on above:Performed By: #### CDP, BMP #### [address] [place], [place] [address] Faucet Polisher: ESTEPHANIE BullockCV (RBC) [Entitic vol]97.2 oYKkeprj47.6-102.9 [facility] HospitalComment on above:Performed By: #### CDP, BMP #### [address] [place], [place] [address] Faucet Polisher: ESTEPHANIE Bullockonocytes (Bld) [#/Vol]0.57 10*3/uLNormal 0.10-1.20[facility] HospitalComment on above:Performed By: #### CDP, BMP #### [address] [place] [id number] Faucet Polisher: ESTEPHANIE Bullockonocytes/100 WBC (Bld)6 %Normal3-12[facility] HospitalComment on above:Performed By: #### CDP, BMP #### [facility] [address] [place] [address] Faucet Polisher: Seth Bullock (Seg)66 %Wnnu15-98YrnbiGuernsey Memorial HospitalComment on above:Performed By: #### CDP, BMP #### [facility] [address] [place] [address] Faucet Polisher: ANILA Bullock Automated0.0 per 100 WBCNormal0.0[facility] HospitalComment on above:Performed By: #### CDP, BMP #### [facility] [address] [place] [address] Faucet Polisher: Santos Bullock mean volume (Bld) [Entitic vol]9.9 fL Normal8.1-13.5[facility] HospitalComment on above:Performed By: #### DORETHA, BMP #### [address] [place] [address] Faucet Polisher: Yusuf Bullock (Bld) [#/Vol]298 10*3/rBXwvexi879-269 [facility] HospitalComment on above:Performed By: #### DORETHA, BMP #### [address] [place] [address] Faucet Polisher: KAHLIL Bullock (Bld) [#/Vol]4.57 10*6/uLNormal3.95-5.11[facility] HospitalComment on above:Performed By: #### CDP, BMP #### [address] [place] [address] Faucet Polisher: DALTON Bullock (Bld) [#/Vol]8.9 10*3/uLNormal3.5-11.3MGreen Cross Hospital HospitalComment on above:Performed By: #### CDP, BMP #### [facility] [address] [place] [address] Faucet Polisher: Wang Day MDAuto Diff PerformedNOT REPORTEDNormalMercy [place] HospitalComment on above:Performed By: #### CDP, BMP #### [facility] [address] [place] [address] [place] [address] Faucet Polisher: SHEILA Bullocklatelets (Bld) [#/Vol]NOT REPORTEDNormalMercy [place] HospitalComment on above:Performed By: #### CDP, BMP #### [facility] [address] [place] [address] [place] [address] Faucet Polisher: KAHLIL Bullock morphology finding Nom (Bld)NOT REPORTED NormalMercy [place] HospitalComment on above:Performed By: #### CDP, BMP #### [address] [place] [address] Faucet Polisher: DALTON Bullock MorphologyNOT REPORTEDNormalCherrington Hospitalcy [place] HospitalComment on above:Performed By: #### CDP, BMP #### [address] [place], [place] [address] Faucet Polisher: DARI BullockARDIAC STRESS TESTon [id number] STRESS TEST[address] [address] CARDIAC STRESS TEST PATIENT NAME: RAEANN ECKERT : 1965 MED REC NO: [id number] ROOM: ACCOUNT NO: [id number] ADMIT DATE: 12/05/2018 PROVIDER: Rhett Naqvi CARDIOVASCULAR [...] being on a beta es. RHETT NAQVI BETTE/CNADIS_ALEX Doc#: Unknown CC: [facility] with [facility] [id number]. Basophil0.04 k/uLNormal0.00-0.20[facility] HospitalComment on above:Performed By: #### CDP, CPBILC, LIPR, TSHX #### [facility] [address] [place] [address] [place] [address] Faucet Polisher: Pam Bullock.Imm.Granulocyte<0.48Zyvilw3.00-0.30[facility] HospitalComment on above:Performed By: #### CDP, CPBILC, LIPR, TSHX #### [facility] [address] [place] [address] [place] [address] Faucet Polisher: Pam Bullock.Neutrophil (Seg)3.34 k/uLNormal1.50-8.10[facility] HospitalComment on above:Performed By: #### CDP, CPBILC, LIPR, TSHX #### [address] [place] [address] Faucet Polisher: Wang Day MDBasophils/100 WBC (Bld)1 %Normal0-2MOhioHealth Southeastern Medical CenterComment on above:Performed By: #### CDP, CPBILC, LIPR, TSHX #### [address] [place] [address] Faucet Polisher: Wang Day MDEosinophils (Bld) [#/Vol]0.14 10*3/uLNormal 0.00-0.44[facility] HospitalComment on above:Performed By: #### CDP, CPBILC, LIPR, TSHX #### [address] [place] [address] Faucet Polisher: Wang Day MDEosinophils/100 WBC (Bld)2 %Normal1-4[facility] HospitalComment on above:Performed By: #### CDP, CPBILC, LIPR, TSHX #### [address] [place] [address] Faucet Polisher: Wang Day MDErythrocyte distribution width (RBC) [Ratio]13.1 %Wtiqoj66.8-14.4[facility] HospitalComment on above:Performed By: #### CDP, CPBILC, LIPR, TSHX #### [address] [place] [address] Faucet Polisher: Wang Day MDHematocrit (Bld) [Volume fraction]45.3 %Normal 36.3-47.1MGreen Cross Hospital HospitalComment on above:Performed By: #### CDP, CPBILC, LIPR, TSHX #### [address] [place], [facility]83 Faucet Polisher: Wang Day MDHemoglobin (Bld) [Mass/Vol]14.8 g/dLNormal 11.9-15.1MOhioHealth Southeastern Medical CenterComment on above:Performed By: #### CDP, CPBILC, LIPR, TSHX #### [address] [place], [place] [address] Faucet Polisher: Wang Day MDImmature granulocytes (Bld) [#/Vol]0 %Normal0 [facility] HospitalComment on above:Performed By: #### CDP, CPBILC, LIPR, TSHX #### [address] [place] [address] Faucet Polisher: Wang Day MDLymphocytes (Bld) [#/Vol]1.87 10*3/uLNormal 1.10-3.70[facility] HospitalComment on above:Performed By: #### CDP, CPBILC, LIPR, TSHX #### [address] [place], [place] [address] Faucet Polisher: Eliceo Bullockmphocytes/100 WBC (Bld)33 %Pvbien98-52AnapaGuernsey Memorial HospitalComment on above:Performed By: #### CDP, CPBILC, LIPR, TSHX #### [address] [place], [facility]83 Faucet Polisher: FLORENCIO Bullock (RBC) [Entitic mass]30.9 zjUckkde05.2-33.5 [facility] HospitalComment on above:Performed By: #### CDP, CPBILC, LIPR, TSHX #### [address] [place], [facility]83 Faucet Polisher: Wang Shay, MDMCHC (RBC) [Mass/Vol]32.7 g/yRXyimch07.4-34.8 [facility] HospitalComment on above:Performed By: #### CDP, CPBILC, LIPR, TSHX #### [address] [place] [address] Faucet Polisher: ESTEPHANIE BullockCV (RBC) [Entitic vol]94.6 uYWdizkw29.6-102.9 [facility] HospitalComment on above:Performed By: #### CDP, CPBILC, LIPR, TSHX #### [address] [place] [address] Faucet Polisher: ESTEPHANIE Bullockonocytes (Bld) [#/Vol]0.34 10*3/uLNormal 0.10-1.20[facility] HospitalComment on above:Performed By: #### CDP, CPBILC, LIPR, TSHX #### [address] [place] [address] Faucet Polisher: ESTEPHANIE Bullockonocytes/100 WBC (Bld)6 %Normal3-12[facility] HospitalComment on above:Performed By: #### CDP, CPBILC, LIPR, TSHX #### [address] [place] [address] Faucet Polisher: Aranza Bullockutrophil (Seg)58 %Govugr96-87Vylus Tiffin HospitalComment on above:Performed By: #### CDP, CPBILC, LIPR, TSHX #### [address] [place] [address] Faucet Polisher: Wang Day MDNRBC Automated0.0 per 100 WBCNormal0.0[facility] HospitalComment on above:Performed By: #### CDP, CPBILC, LIPR, TSHX #### [address] [place], [facility]83 Faucet Polisher: Santos Bullock mean volume (Bld) [Entitic vol]10.2 fL Normal8.1-13.5[facility] HospitalComment on above:Performed By: #### CDP, CPBILC, LIPR, TSHX #### [address] [place], [facility]83 Faucet Polisher: Yusuf Bullock (Bld) [#/Vol]297 10*3/iMPbtkyh227-484 [facility] HospitalComment on above:Performed By: #### CDP, CPBILC, LIPR, TSHX #### [address] [place], [facility]83 Faucet Polisher: KAHLIL Bullock (Bld) [#/Vol]4.79 10*6/uLNormal3.95-5.11[facility] HospitalComment on above:Performed By: #### CDP, CPBILC, LIPR, TSHX #### [address] [place], [facility]83 Faucet Polisher: DALTON Bullokc (Bld) [#/Vol]5.7 10*3/uLNormal3.5-11.3MGreen Cross Hospital HospitalComment on above:Performed By: #### CDP, CPBILC, LIPR, TSHX #### [address] [place], [facility]83 Faucet Polisher: Stephany Bullock PerformedNOT REPORTEDNormalJ.W. [facility] HospitalComment on above:Performed By: #### CDP, CPBILC, LIPR, TSHX #### [address] [place] [address] Faucet Polisher: Yusuf Bullock (Bld) [#/Vol]NOT REPORTEDNormalJ.W. Ruby [facility] Hospital HospitalComment on above:Performed By: #### CDP, CPBILC, LIPR, TSHX #### [facility] [address] [place] [address] Faucet Polisher: KAHLIL Bullock morphology finding Nom (Bld)NOT REPORTED [facility] HospitalComment on above:Performed By: #### CDP, CPBILC, LIPR, TSHX #### [facility] [address] [place] [address] Faucet Polisher: DALTON Bullock MorphologyNOT REPORTEDNormalJ.W. [facility] Hospital HospitalComment on above:Performed By: #### CDP, CPBILC, LIPR, TSHX #### [facility] [address] [place] [address] Faucet Polisher: Wang Day [facility] – OKLAHOMA CITYardiacon [phone] [Mass/Vol]218 mg/dLHigh(<200)[facility] Work Phone: Comment on above:Note: Cholesterol Guidelines: <200 Desirable 200-240 Borderline >240 Undesirable Responsible Observer: JOSIE MCCRACKEN (1831)Triglyceride [Mass/Vol]131 mg/dL(<150)[facility] Work Phone: Comment on above:Note: Triglyceride Guidelines: <150 Desirable 150-199 Borderline 200-499 High >499 Very high Based on AHA Guidelines for fasting triglyceride, February 2012. Responsible Observer: JOSIE CHOW (1831)Comp Metab w/Bili Pron 10-23-2018(cont.)[facility] Comment on above:Result Comment: Average GFR for 50-59 years old: 93 mL/min/1.73sq m Chronic Kidney Disease: <60 mL/min/1.73sq m Kidney failure: <15 mL/min/1.73sq m eGFR calculated using average adult body mass. Additional eGFR calculator available at: http://www.FishBrain.PriceTag/multiple_crcl_2012.htmPerformed By: #### CDP, CPBILC, LIPR, TSHX #### [facility] [address] [place], [facility]83 Faucet Polisher: Wang Day MDAlbumin [Mass/Vol]4.2 g/dLNormal3.5-5.2[facility] HospitalComment on above:Performed By: #### CDP, CPBILC, LIPR, TSHX #### [address] [place], [facility]83 Faucet Polisher: Wang Day MDAlbumin/Globulin [Mass ratio]1.2 {ratio}Normal 1.0-2.5[facility] HospitalComment on above:Performed By: #### CDP, CPBILC, LIPR, TSHX #### [address] [place], [facility]83 Faucet Polisher: Karen Bulolckline Kzhe926 U/FWscmkk74-017Snyhm [facility] HospitalComment on above:Performed By: #### CDP, CPBILC, LIPR, TSHX #### [address] [place], [facility]83 Faucet Polisher: Wang Day MDALT [Catalytic activity/Vol]15 U/LNormal5-33[facility] HospitalComment on above:Performed By: #### CDP, CPBILC, LIPR, TSHX #### [address] [place], [facility]83 Faucet Polisher: Gerda Bullock gap [Moles/Vol]12 mmol/LNormal9-17[facility] HospitalComment on above:Performed By: #### CDP, CPBILC, LIPR, TSHX #### [address] [place], [facility]83 Faucet Polisher: Wang Day MDAST [Catalytic activity/Vol]15 U/LNormal<32[facility] HospitalComment on above:Performed By: #### CDP, CPBILC, LIPR, TSHX #### [address] [place], [place] [address] Faucet Polisher: Edward Bullockirubin Ql (U)0.24 mg/dLLow0.3-1.2MGreen Cross Hospital HospitalComment on above:Performed By: #### CDP, CPBILC, LIPR, TSHX #### [address] [place], [facility]83 Faucet Polisher: Hortensia Bullock, IndirectCANNOT BE CALCULATEDNormal 0.00-1.00[facility] HospitalComment on above:Performed By: #### CDP, CPBILC, LIPR, TSHX #### [address] [place], [facility]83 Faucet Polisher: Hortensia Bullock.direct [Mass/Vol]mg/dLNormal<0.31MerFostoria City Hospital HospitalComment on above:Performed By: #### CDP, CPBILC, LIPR, TSHX #### [address] [place], [place] [address] Faucet Polisher: DARI Bullockalcium [Mass/Vol]9.3 mg/dLNormal8.6-10.4MerFostoria City Hospital HospitalComment on above:Performed By: #### CDP, CPBILC, LIPR, TSHX #### [address] [place], [place] [address] Faucet Polisher: DARI Bullockhloride [Moles/Vol]102 mmol/TWpjtji22-423Sddxo Tiffin HospitalComment on above:Performed By: #### CDP, CPBILC, LIPR, TSHX #### [address] [place], [facility]83 Faucet Polisher: DARI BullockO2 [Moles/Vol]27 mmol/LOlbtax03-31Bocdc Tiffin HospitalComment on above:Performed By: #### CDP, CPBILC, LIPR, TSHX #### [address] [place] [address] Faucet Polisher: Wang Day MDCreatinine [Mass/Vol]0.64 mg/dLNormal0.50-0.90 [facility] HospitalComment on above:Performed By: #### CDP, CPBILC, LIPR, TSHX #### [address] [place], [facility]83 Faucet Polisher: Wang Day MDGFR, Amer>60Normal>60[facility] Hospital Comment on above:Performed By: #### CDP, CPBILC, LIPR, TSHX #### [address] [place], [facility]83 Faucet Polisher: Wang Day MDGFR,non Amer>60Normal>60[facility] HospitalComment on above:Performed By: #### CDP, CPBILC, LIPR, TSHX #### [address] [place], [facility]83 Faucet Polisher: Wang Day MDGlucose [Mass/Vol]123 mg/aTSezf17-31Cphbm [facility] HospitalComment on above:Performed By: #### CDP, CPBILC, LIPR, TSHX #### [address] [place], [place] [id number] Faucet Polisher: Wang Day, MDPotassium [Moles/Vol]4.6 mmol/LNormal3.7-5.3[facility] HospitalComment on above:Performed By: #### CDP, CPBILC, LIPR, TSHX #### [address] [place] [address] Faucet Polisher: Wang Day MDProtein [Mass/Vol]7.6 g/dLNormal6.4-8.3[facility] HospitalComment on above:Performed By: #### CDP, CPBILC, LIPR, TSHX #### [facility] [address] [place] [address] Faucet Polisher: JAM Bullockodium [Moles/Vol]141 mmol/HTrjmmy262-605ZhkmtGuernsey Memorial HospitalComment on above:Performed By: #### CDP, CPBILC, LIPR, TSHX #### [facility] [address] [place] [address] Faucet Polisher: JAM Bullocktaging:NormalGuernsey Memorial HospitalComment on above:Result Comment: Stage 1: Some kidney damage normal GFR Stage 2: Mild kidney damage GFR 60-89 Stage 3: Moderate kidney damage GFR 30-59 Stage 4: Severe kidney damage GFR 15-29 Stage 5: Severe kidney damage GFR <15 ESRD - chronic treatment by dialysis or transplantPerformed By: #### CDP, CPBILC, LIPR, TSHX #### [address] [place], [facility]83 Faucet Polisher: Wang Day MDUrea nitrogen [Mass/Vol]15 mg/dLNormal6-20[facility] HospitalComment on above:Performed By: #### CDP, CPBILC, LIPR, TSHX #### [address] [place] [address] Faucet Polisher: Wang Day MDHematologyon [id number]/100 WBC (Bld)1 % (0-2)[facility] Work Phone: comment on above:Note: Responsible Observer: XNT AUTOFILE (3019)Eosinophils (Bld) [#/Vol]0.14 10*3/uL(0.00-0.44)[facility] Work Phone: comment on above:Note: Responsible Observer: XNT AUTOFILE (3019)Eosinophils/100 WBC (Bld)2 %(1-4)[facility] Work Phone: comment on above:Note: Responsible Observer: XNT AUTOFILE (3019)Hematocrit (Bld) [Volume fraction]45.3 %(36.3-47.1)[facility] Work Phone: Comment on above:Note: Responsible Observer: XNT AUTOFILE (3019)Hemoglobin (Bld) [Mass/Vol]14.8 g/dL(11.9-15.1)[facility] Work Phone: Comment on above:Note: Responsible Observer: XNT AUTOFILE (3019)Lymphocytes (Bld) [#/Vol]1.87 10*3/uL(1.10-3.70)[facility] Work Phone: Comment on above:Note: Responsible Observer: XNT AUTOFILE (3019)Lymphocytes/100 WBC (Bld)33 %(24-43)[facility] Work Phone: Comment on above:Note: Responsible Observer: XNT AUTOFILE (3019)MCH (RBC) [Entitic mass]30.9 pg(25.2-33.5)[facility] Work Phone: Comment on above:Note: Responsible Observer: XNT AUTOFILE (3019)MCV (RBC) [Entitic vol]94.6 fL(82.6-102.9)[facility] Work Phone: Comment on above:Note: Responsible Observer: XNT AUTOFILE (3019)Monocytes (Bld) [#/Vol]0.34 10*3/uL(0.10-1.20)[facility] Work Phone: Comment on above:Note: Responsible Observer: XNT AUTOFILE (3019)Monocytes/100 WBC (Bld)6 %(3-12)[facility] Work Phone: Comment on above:Note: Responsible Observer: XNT AUTOFILE (3019)Platelets (Bld) [#/Vol]NOT REPORTEDVal[facility] Springs Behavioral Health Hospital Work Phone: Platelets (Bld) [#/Vol]297 10*3/uL(138-453)[facility] Work Phone: comment on above:Note: Responsible Observer: XNT AUTOFILE (6943)RBC (Bld) [#/Vol]4.79 10*6/uL(3.95-5.11)[facility] Work Phone: Comment on above:Note: Responsible Observer: XNT AUTOFILE (4324)RBC morphology finding Nom (Bld)NOT REPORTEDVal[facility] Work Phone: WBC (Bld) [#/Vol]0.0 per_100_WBC(0.0)[facility] Work Phone: comment on above:Note: Responsible Observer: XNT AUTOFILE (6032)WBC (Bld) [#/Vol]5.7 10*3/uL(3.5-11.3)[facility] Work Phone: comment on above:Note: Responsible Observer: XNT AUTOFILE (8648)Lipid Profileon 77-79-5603Bmppmtjlbvr [Mass/Vol]218 mg/dLHigh<200 [facility] on above:Result Comment: Cholesterol Guidelines: <200 Desirable 200-240 Borderline >240 UndesirablePerformed By: #### CDP, CPBILC, LIPR, TSHX #### [facility] [address] [place] [address] [place] [address] Faucet Polisher: Wang Day, MDCholesterol in HDL [Mass/Vol]57 mg/dLNormal>40 [facility] on above:Result Comment: HDL Guidelines: <40 Undesirable 40-59 Borderline >59 DesirablePerformed By: #### CDP, CPBILC, LIPR, TSHX #### [facility] [address] [place] [address] Faucet Polisher: Wang Day, MDCholesterol in LDL [Mass/Vol]135 mg/dLHigh0-130 [facility] on above:Result Comment: LDL Guidelines: <100 Desirable 100-129 Near to/above Desirable 130-159 Borderline >159 Undesirable Direct (measured) LDL and calculated LDL are not interchangeable tests.Performed By: #### CDP, CPBILC, LIPR, TSHX #### [facility] [address] [place] [address] Faucet Polisher: DARI Bullockholeparadise.total/Cholesterol in HDL [Mass ratio] 3.8 {ratio}Normal<5[facility] HospitalComment on above:Performed By: #### CDP, CPBILC, LIPR, TSHX #### [facility] [address] [place] [address] Faucet Polisher: Wang Day MDTriglyceride [Mass/Vol]131 mg/dLNormal<150[facility] HospitalComment on above:Result Comment: Triglyceride Guidelines: <150 Desirable 150-199 Borderline 200-499 High >499 Very high Based on AHA Guidelines for fasting triglyceride, February 2012.Performed By: #### CDP, CPBILC, LIPR, TSHX #### [facility] [address] [place], [place] [id number] Faucet Polisher: DARI Bullockholesterol in VLDL [Mass/Vol]NOT REPORTEDNormal 1-30[facility] HospitalComment on above:Performed By: #### CDP, CPBILC, LIPR, TSHX #### [facility] [address] [place] [address] Faucet Polisher: ESTEPHANIE Bullocketabolic Panelon [id number] [Mass/Vol]4.2 g/dL(3.5-5.2)[facility] Work Phone: Comment on above:Note: Responsible Observer: JOSIE MCCRACKEN (1831)ALT [Catalytic activity/Vol]15 U/L(5-33)[facility] Work Phone: Comment on above:Note: Responsible Observer: JOSIE MCCRACKEN (1831)Anion gap [Moles/Vol]12 mmol/L(9-17)[facility] Work Phone: Comment on above:Note: Responsible Observer: JOSIE MCCRACKEN (1831)AST [Catalytic activity/Vol]15 U/L(<32)[facility] Work Phone: Comment on above:Note: Responsible Observer: JOSIE MCCRCAKEN (1831)Bilirubin [Mass/Vol]0.24 mg/dLLow(0.3-1.2)[facility] Work Phone: Comment on above:Note: Responsible Observer: JOSIE MCCRACKEN (1831)Bilirubin.direct [Mass/Vol]mg/dL(<0.31)[facility] Work Phone: Comment on above:Note: Responsible Observer: JOSIE MCCRACKEN (1831)Calcium [Mass/Vol]9.3 mg/dL(8.6-10.4)[facility] Work Phone: Comment on above:Note: Responsible Observer: JOSIE MCCRACKEN (1831)Chloride [Moles/Vol]102 mmol/L(98-107)[facility] Work Phone: Comment on above:Note: Responsible Observer: JOSIE MCCRACKEN (1831)CO2 [Moles/Vol]27 mmol/L(20-31)[facility] Work Phone: Comment on above:Note: Responsible Observer: JOSIE MCCRACKEN (1831)Creatinine [Mass/Vol]0.64 mg/dL(0.50-0.90)[facility] Work Phone: Comment on above:Note: Responsible Observer: JOSIE MCCRACKEN (1831)Glucose [Mass/Vol]123 mg/dLHigh(70-99)[facility] Work Phone: Comment on above:Note: Responsible Observer: JOSIE MCCRACKEN (1831)Potassium [Moles/Vol]4.6 mmol/L(3.7-5.3)[facility] Work Phone: comment on above:Note: Responsible Observer: JOSIE MCCRACKEN (1831)Protein [Mass/Vol]7.6 g/dL(6.4-8.3)[facility] Work Phone: comment on above:Note: Responsible Observer: JOSIE MCCRACKEN (1831)Sodium [Moles/Vol]141 mmol/L(135-144)[facility] Work Phone: comment on above:Note: Responsible Observer: JOSIE MCCRACKEN (1831)Urea nitrogen [Mass/Vol]15 mg/dL(6-20)[facility] Work Phone: comment on above:Note: Responsible Observer: JOSIE SHANNONTUNDE (1831)Otheron 10-23-2018(cont.)See NoteValley Springs Behavioral Health Hospital Work Phone: comment on above:Note: Average GFR for 50-59 years old: 93 mL/min/1.73sq mChronic Kidney Disease: <60 mL/min/1.73sq mKidney failure: <15 mL/min/1.73sq m eGFR calculated using average adult body mass. AdditionaleGFR calculator available at: http://www.FishBrain.PriceTag/multiple_crcl_2011.htm Responsible Observer:JOSIE SHANNONLoveMikkiKATHLEENCURTIS (1831)Abs. Basophil0.04 k/uL(0.00-0.20)[facility] Work Phone: comment on above:Note: Responsible Observer: XNT AUTOFILE (9559)Abs.Imm.Granulocyte<0.03 k/uL(0.00-0.30)[facility] Work Phone: Comment on above:Note: Responsible Observer: XNT AUTOFILE (5446)Abs.Neutrophil (Seg)3.34 k/uL(1.50-8.10)[facility] Work Phone: Comment on above:Note: Responsible Observer: XNT AUTOFILE (3019)Albumin/Glob Ratio1.2(1.0-2.5)[facility] Work Phone: Comment on above:Note: Responsible Observer: JOSIE MCCRACKEN (1831)Alkaline Mdes219 U/L(35-104)[facility] Work Phone: Comment on above:Note: Responsible Observer: JOSIE MCCRACKEN (1831)Auto Diff PerformedNOT REPORTEDValley Springs Behavioral Health Hospital Work Phone: Bilirubin, IndirectCANNOT BE CALCULATED mg/dL (0.00-1.00)[facility] Work Phone: Comment on above:Note: Responsible Observer: JOSIE MCCRACKEN (1831)Cholesterol,HDL57 mg/dL(>40)[facility] Work Phone: Comment on above:Note: HDL Guidelines: <40 Undesirable 40-59 Borderline >59 Desirable Responsible Observer: JOSIE MCCRACKEN (1831) Cholesterol,HQN423 mg/dLHigh(0-130)[facility] Work Phone: Comment on above:Note: LDL Guidelines: <100 Desirable 100-129 Near to/above Desirable 130-159 Borderline >159 Undesirable Direct (measured) LDL and calculated LDL are not interchangeable tests.Responsible Observer: JOSIE MCCRACKEN (1831)Cholesterol,VLDLNOT REPORTED mg/dL(1-30) [facility] Work Phone: Cholesterol.total/Cholesterol in HDL [Mass ratio]3.8 {ratio}(<5)[facility] Work Phone: Comment on above:Note: Responsible Observer: JOSIE MCCRACKEN (1831)Erythrocyte distribution width (RBC) [Ratio]13.1 %(11.8-14.4) [facility] Work Phone: Comment on above:Note: Responsible Observer: XNT AUTOFILE (3018)GFR, Amer>60 mL/min(>60)[facility] Work Phone: Comment on above:Note: Responsible Observer: JOSIE MCCRACKEN (1832)GFR,non Amer>60 mL/min(>60)[facility] Work Phone: Comment on above:Note: Responsible Observer: JOSIE MCCRACKEN (1831)Immature granulocytes (Bld) [#/Vol]0 %(0)[facility] Work Phone: Comment on above:Note: Responsible Observer: XNT AUTOFILE (3018)MCHC (RBC) [Mass/Vol]32.7 g/dL(28.4-34.8)[facility] Work Phone: Comment on above:Note: Responsible Observer: XNT AUTOFILE (3018)Performing Lab:see [facility] Work Phone: Comment on above:Note: [facility] [address] [place] [address] Platelet mean volume (Bld) [Entitic vol]10.2 fL(8.1-13.5)[facility] Work Phone: Comment on above:Note: Responsible Observer: XNT AUTOFILE (3018)Reported PhysiciansSee [facility] Work Phone: Comment on above:Note: Reported Physicians:Ordering: Laura Ramirez AAttending: Cintia RamirezthiaReferring: Eloy RamirezaSegmented neutrophils/100 WBC (Bld)58 %(36-65)[facility] Work Phone: Comment on above:Note: Responsible Observer: XNT AUTOFILE (3018)Staging:See [facility] Work Phone: Comment on above:Note: Stage 1: Some kidney damage normal GFRStage 2: Mild kidney damage GFR 60-89Stage 3: Moderate kidney damage GFR 30-59Stage 4: Severe kidney damage GFR 15-29Stage 5: Severe kidney damage GFR <15ESRD - chronic treatment by dialysis or transplantResponsible Observer: JOSIE MCCRACKEN (1831)Thyroid Stim. Horm.1.27 mIU/L(0.30-5.00)[facility] Work Phone: Comment on above:Note: Responsible Observer: JOSIE MCCRACKEN (1831)WBC MorphologyNOT REPORTEDValley Springs Behavioral Health Hospital Work Phone: TSH w/reflex to FT4on [id number] Qn1.27 m[IU]/L Normal0.30-5.00[facility] HospitalComment on above:Performed By: #### CDP, CPBILC, LIPR, TSHX #### [facility] [address] [place] [address] Faucet Polisher: Wang Day MD Vital Signs Date TimeVital SignValuePerforming [id number] 15:41-0400Body iezfge986.1 Thony Dorsey MD Work Phone: [facility]08-29-2025 15:41-0400Body mass index (BMI) [Ratio]38.08 kg/z4BagozKeith Dorsey MD Work Phone: [facility]08-29-2025 15:41-0400Body temperature 97.59 [degF]Keith Dorsey MD Work Phone: [facility]08-29-2025 15:41-0400Body .3 kgKeith Dorsey MD Work Phone: [facility]08-29-2025 15:41-0400Diastolic blood akhrnwer91 mm[Hg]Keith Dorsey MD Work Phone: [facility]08-29-2025 15:41-0400Heart rate85 /min Keith Dorsey MD Work Phone: [facility]08-29-2025 15:41-0400Respiratory rate 16 /minKeith Dorsey MD Work Phone: [facility]08-29-2025 15:41-7931ZmW8% (BldA) [Mass fraction]97 %Keith Dorsey MD Work Phone: [facility]08-29-2025 15:41-0400Systolic blood tmlrriev982 mm[Hg]Keith Dorsey MD Work Phone: [facility]07-01-2025 09:03-0400Body qytuvc297.1 cmVshae Dorsey MD Work Phone: [facility]07-01-2025 09:03-0400Body mass index (BMI) [Ratio]38.12 kg/c9EfpujKeith Dorsey MD Work Phone: [facility]07-01-2025 09:03-0400Body temperature 97 [degF]Keith Dorsey MD Work Phone: [facility]07-01-2025 09:03-0400Body gyzoik270.4 kgKeith Dosrey MD Work Phone: [facility]07-01-2025 09:03-0400Diastolic blood xotoczyz57 mm[Hg]Keith Dorsey MD Work Phone: [facility]07-01-2025 09:03-0400Heart rate98 /min Keith Dorsey MD Work Phone: [facility]07-01-2025 09:03-0400Respiratory rate 16 /minKeith Dorsey MD Work Phone: [facility]07-01-2025 09:03-3020AbH3% (BldA) [Mass fraction]94 %Keith Dorsey MD Work Phone: [facility]07-01-2025 09:03-0400Systolic blood cmjmwnyp676 mm[Hg]Keith Dorsey MD Work Phone: [facility]06-04-2025 11:09-0400Body mass index (BMI) [Ratio]37.89 kg/b1Rsbfj Shanti PA-C Work Phone: [facility]06-04-2025 11:09-0400Body temperature 97 [degF]Toña Shanti PA-C Work Phone: [facility]06-04-2025 11:09-0400Body vnxzuh799.8 kgMindy Shanti PA-C Work Phone: [facility]06-04-2025 11:09-0400Diastolic blood psgojozg28 mm[Hg]Toña Shanti PA-C Work Phone: [facility]06-04-2025 11:09-0400Heart rate85 /min Toña Shanti PA-C Work Phone: [facility]06-04-2025 11:09-0400Respiratory rate 16 /minMindy Shanti PA-C Work Phone: [facility]06-04-2025 11:09-9814QoR2% (BldA) [Mass fraction]93 %Toña Shanti PA-C Work Phone: [facility]06-04-2025 11:09-0400Systolic blood gboulixz580 mm[Hg]Toña Shanti PA-C Work Phone: [facility]05-06-2025 14:55-0400Body .1 Thony Dorsey MD Work Phone: [facility]05-06-2025 14:55-0400Body mass index (BMI) [Ratio]38.76 kg/c1ZwsmoKeith Dorsey MD Work Phone: [facility]05-06-2025 14:55-0400Body temperature 97.11 [degF]Keith Dorsey MD Work Phone: [facility]05-06-2025 14:55-0400Body zvrkvu337.1 kgKeith Dorsey MD Work Phone: [facility]05-06-2025 14:55-0400Diastolic blood qjbqdutn71 mm[Hg]Keith Dorsey MD Work Phone: [facility]05-06-2025 14:55-0400Heart iijv403 /minKeith Dorsey MD Work Phone: [facility]05-06-2025 14:55-0400Respiratory rate 16 /minKeith Dorsey MD Work Phone: [facility]05-06-2025 14:55-7638ZrX4% (BldA) [Mass fraction]97 %Keith Dorsey MD Work Phone: [facility]05-06-2025 14:55-0400Systolic blood nrhhcleq616 mm[Hg]Keith Dorsey MD Work Phone: [facility]02-25-2021 14:59-0500BMI (Body Mass Index)36.4 kg/x1FwpnauHill[facility] Phone: 1(538) 843-945402-25-2021 14:59-0500Body Pxywhnfxvwi24.5 [degF]Suzi [facility] Work Phone: 1(593) 886-528502-25-2021 14:59-0500Body .34 kgKirstinyara [facility] Work Phone: 1(691) 181-719302-25-2021 14:59-0500BP Msudnfdtu00 mm[Hg][facility] Work Phone: 1(450) 981-454502-25-2021 14:59-0500BP Wardbcyi562 mm[Hg][facility] Work Phone: 1(195) 542-330402-25-2021 14:59-0500BSA (Body Surface Area)2.06 m2 [facility] Work Phone: 1(721) 758-203902-25-2021 14:59-0629Icnedp828.1 [facility] Work Phone: 1(345) 835-825302-25-2021 14:59-0500Pulse (Heart Rate)91 /[facility]Hill[facility] Phone: 1(435) 955-381202-25-2021 14:59-0500Pulse Prvdvxvk21 %[facility] Work Phone: 1(348) 254-769102-25-2021 14:59-0500Respiratory Rate18 /[facility]Hill[facility] Phone: 1(243) 710-439502-19-2021 16:08-0500BMI (Body Mass Index)33.3 kg/m2 [facility] Work Phone: 1(345) 318-289302-19-2021 16:08-0500Body vkbxey99.72 kgHill[facility] Phone: 1(382) 693-484002-19-2021 16:08-0500BSA (Body Surface Area)1.98 m2 [facility] Work Phone: 1(823) 846-560002-19-2021 16:08-4605Dvwhhd347.1 [facility] Work Phone: 1(261) 655-240912-23-2020 17:49-0500BMI (Body Mass Index)34.3 kg/m2 [facility] Work Phone: 1(457) 929-779912-23-2020 17:49-0500Body djpgca31.72 kgHill[facility] Phone: 1(288) 397-906812-23-2020 17:49-0500BSA (Body Surface Area)1.96 m2 [facility] Work Phone: 1(912) 287-681012-23-2020 17:49-8054Jhecnf769.56 [facility] Work Phone: 1(120) 679-643907-10-2020 10:07-0400BMI (Body Mass Index)34.3 kg/m2 [facility] Work Phone: Comment on above:per patient cmhycl54-34-4633 10:07-0400Body kurmub96.72 kgSuzi [facility] Work Phone: Comment on above:per patient mygdqi60-17-0569 10:07-0400BSA (Body Surface Area)1.96 i0Dwpobv [facility] Work Phone: [phone] on above:per patient qvwniq62-63-7493 10:07-9534Sjeadw517.56 Ren [facility] Work Phone: [phone] on above:per patient zfdobw68-59-6483 13:33-0400BMI (Body Mass Index)33.7 kg/q2ZbcehlkHon[facility]Health [facility] Work Phone: [phone] on above:per pt grktek28-29-0786 13:33-0400 Body pwaugn56.18 [facility]CyB[facility] Work Phone: Comment on above:per pt aleitf15-41-7956 13:33-0400BSA (Body Surface Area)1.89 o5CdpgeksBanner Heart Hospital Work Phone: Comment on above:per pt bynftm01-99-6011 13:33-0400 Fwyqib247.02 cmCynthia [facility] Work Phone: Comment on above:per pt xsavsd53-35-4411 11:12-0500BMI (Body Mass Index)32.3 kg/x7Ptapkcg [facility] Work Phone: 1(467) 720-163112-18-2019 11:12-0500Body Zwjpnkgedpo89.6 [degF] Laura [facility] Work Phone: 1(419)599-486072-13 11:12-0500Body .17 kgLaura [facility] Work Phone: 1(281)[phone] 11:12-0500BP Mzhudrfpa48 mm[Hg]Laura [facility] Work Phone: 1(841)297-935-827102-87 11:12-0500BP Godahaxi846 mm[Hg][facility] Work Phone: 1(423)[phone] 11:12-0500BSA (Body Surface Area)1.95 m2 [facility] Work Phone: 1(174)[phone] 11:12-0500Flow Rate0 L/[facility] Work Phone: 1(505)[phone] 11:12-8478Thhahf377.[address] [facility] Tulsaynthia [facility] Work Phone: 1(805)[phone] 11:12-0500Inhaled Oxygen Ceivkkbcmlmqe67 % [facility] Work Phone: 1(636)[phone] 11:12-0500Pulse (Heart Rate)75 /[facility] Work Phone: 1(124)[phone] 11:12-0500Pulse Euvccuon43 %[facility] Work Phone: 1(348)[phone] 11:12-0500Respiratory Rate18 /[facility]iKind[facility] Work Phone: 1(466)[phone] 11:34-0400BMI (Body Mass Index)32.8 kg/m2 [facility] Work Phone: 1(592)545-216336-78 11:34-0400Body Yljdqiyvbka43.1 [degF] [facility] Work Phone: 1(814)[phone] 11:34-0400Body htefge59.36 kgLaura [facility] Work Phone: 1(168)[phone]4-3016 11:34-0400BP Aloyqbafx21 mm[Hg]Laura [facility] Work Phone: 1(214)[phone]4-2863 11:34-0400BP Frrkieto976 mm[Hg]Laura [facility] Work Phone: 1(086)[phone]9-2077 11:34-0400BSA (Body Surface Area)1.97 m2 [facility] Work Phone: 1(813)934-305346-789249-01003762-31-8465 11:34-0400Flow Rate0 L/[facility]leyB[facility] Work Phone: 1(001)[phone]1-2654 11:34-8477Mmoqtd558.1 [facility] Work Phone: 1(412) [phone] 11:34-0400Inhaled Oxygen Ofdpszoqumrvf46 % [facility] Work Phone: 1(357)[phone]5-9875 11:34-0400Pulse (Heart Rate)80 /[facility]iKind[facility] Work Phone: 1(954)[phone]5-1470 11:34-0400Pulse Mdwksulo51 %[facility] Work Phone: 1(995)[phone]4-3163 11:34-0400Respiratory Rate20 /[facility] Work Phone: Encounters Encounter DateEncounter TypeCare ProviderFacilityStart: 02-26-2025 End: 06-18-7573ichmnawcrjVGZBL ABHYANKARFacility:[facility]: 02-12-2025 End: 25-89-7198uhjrimhscsSNGJ G MALKINFacility:[facility]art: 79-86-2257inhasdhrbwGVSG G MALKINFacility:[facility]: 02-01-2025 End: 51-32-0586mvjnacvpsnTEAMC ABHYANKARFacility:[facility]: 01-04-2025 End: 17-58-9964Wswhql outpatient visit 15 minutesKeith Dorsey MD Work Phone: Hematology/OncologyComment on above:GBM (glioblastoma multiforme) (HCC); Encounter for antineoplastic chemotherapy; Dry skin; Allergic rhinitis, unspecified seasonality, unspecified triggerStart: 01-04-2025 End: 61-29-1149rqdksoguavBJYEU ABHYANKARFacility:[facility]: 12-07-2024 End: 44-85-1106Ofkdiiant encounterLori Bryon LSWHematology/OncologyStart: 12-07-2024 End: 68-86-3688uqyqolmarzCMYEV ABHYANKARFacility:[facility]: 12-06-2024 End: 54-94-8990Hzvendyid encounterTracie Mcclain MD Work Phone: BurMobiTXm Brain Tumor CenterComment on above:Erroneous encounter-disregard9 weeksStart: 12-05-2024 End: 68-97-3860Tyaleq OnlyTracie Mcclain MD Work Phone: burkhLoyalisp Brain Tumor CenterComment on above:GBM (glioblastoma multiforme) (HCC) (Primary Dx)Start: 12-04-2024 End: 72-07-9631gzdhynvhryMAOJT ABHYANKARFacility:[facility]: 10-46-7649psmduyilteWUBMA ABHYANKARFacility:[facility]: 12-03-2024 End: 62-05-8849Hfgjazhbca hospital visit by physicianMri [facility] (Lg Bore/1.5t)Radiology MRIComment on above:GBM (glioblastoma multiforme) (HCC) [C71.9]Start: 11-12-2024 End: 34-89-4951ossfjwtmpbWadnr M Musser PA-C Work Phone: Hematology/OncologyComment on above:Pictures of rash Start: 11-12-2024 End: 62-00-8380Uodearzdu encounterSimone Mitchell RN Work Phone: Hematology/OncologyComment on above:Care Coordination (Rash)Start: 11-08-2024 End: 80-52-3327Jpcgxxoje encounterLori Bryon LSWHematology/OncologyStart: 11-07-2024 End: 63-64-7995Xfkdgr WorkLori Bryon LSWHematology/OncologyComment on above: Triage (Care Eveywhere update. [facility] fax)Care Coordination (questions)Start: 11-06-2024 End: 94-22-7004Tmhmgn WorkLori Bryon LSWHematology/OncologyStart: 11-06-2024 End: 56-23-1168Usqorh outpatient visit 25 minutesKeith Dorsey MD Work Phone: Hematology/OncologyComment on above:GBM (glioblastoma multiforme) (HCC) (Primary Dx); Pulmonary nodules/lesions, multiple; Anxiety neurosis; Encounter for antineoplastic chemotherapy; Current moderate episode of major depressive disorder without prior episode (HCC); Nonintractable epilepsy without status epilepticus, unspecified epilepsy type (HCC); Hypertensive heart and chronic kidney disease with heart failure and stage 1 through stage 4 chronic kidney disease, or unspecified chronic kidney disease (HCC); Hyperlipidemia, unspecified hyperlipidemia type; Gastro-esophageal reflux disease without esophagitisStart: 35-30-1230hqgbfxpxgj KEITH ABHYANKARFacility:[facility]: 10-30-2024 End: 87-06-1924Bqklgiwpkn hospital visit by physicianArrival Time Radiology Work Phone: Radiology Pet CTComment on above:GBM (glioblastoma multiforme) (HCC) [C71.9]Start: 10-12-2024 End: 02-96-4521Cwkojstjw encounterLori Bryon LSWHematology/OncologyStart: 10-11-2024 End: 53-66-5570Wlcwjbtnq encounterLori Bryon NICHOLEWHematology/OncologyStart: 10-10-2024 End: 25-10-5769Rpibfcy encounter Kala Bailey [facility] Work Phone: [facility] PharmacyStart: 10-10-2024 End: 91-67-6187Uqjmuarxn encounterLorjeanne NICHOLEematology/OncologyComment on above:Patient Update (No prescription coverage)Start: 10-10-2024 End: 71-17-9035Inaezq outpatient visit 25 minutesToña Franklin PA-C Work Phone: Hematology/OncologyComment on above:GBM (glioblastoma multiforme) (HCC) (Primary Dx); Pulmonary nodules/lesions, multipleStart: 10-10-2024 End: 28-60-9323ufudeiwumdGaxndnq McKitrick [facility] Work Phone: [facility] PharmacyStart: 09-11-2024 End: 14-81-4886Szpqcxx evaluation of patient and reportSimone Mitchell RN Work Phone: Hematology/OncologyComment on above:GBM (glioblastoma multiforme) (HCC) (Primary Dx)Start: 09-11-2024 End: 91-88-8518Hcbdse outpatient visit 25 minutesKeith Dorsey MD Work Phone: Hematology/OncologyComment on above:GBM (glioblastoma multiforme) (HCC) (Primary Dx); Pulmonary nodules/lesions, multipleStart: 09-11-2024 End: 23-13-6850tmdzqcxxdrAXMTA ABHYANKARFacility:[facility]tart: 08-28-2024 End: 20-29-8189rkaqqzpmbcRFWTCpdxttxz:[facility]tart: 08-24-2024 End: 53-40-2660Ozrfi abstractingKeith Dorsey MD Work Phone: Hematology/OncologyStart: 08-08-2024 End: 59-50-7062Mestbqcdg encounterSMalik Brain Tumor CenterComment on above:Triage (Onbase_ Records Received_Images Viewable )Start: 11-08-2023 End: 12-20-5265rkiwxcmywtHTDVP A HUDDLESTONNot AvailableStart: 10-25-2023 End: 46-26-0766Mjbayhjuk Result EncounterSajith Arshad MD Work Phone: [phone] External Department UnsolicitedStart: 10-25-2023 End: 55-39-5300Yelrevwml Result Francy Arshad MD Work Phone: noms External Department UnsolicitedStart: 10-14-2023 End: 67-50-1916eqtkecdamuGXVNPGGXU SCHNEIDERNot AvailableStart: 10-12-2023 End: 00-04-0668qvqrjxjuynIZQLWYR LAWRENCENot AvailableStart: 10-10-2023 End: 23-57-9022ykxhmmfgoaDATYFHG LAWRENCENot AvailableStart: 10-07-2023 End: 25-20-5562jbsurfhdwnHJNBRXX LAWRENCENot AvailableStart: 10-04-2023 End: 24-64-4892nplaqmvpwrYFBZDK FAWWADNot AvailableStart: 09-30-2023 End: 41-62-4872dralhmhlcsXLMDISW LAWRENCENot AvailableStart: 09-28-2023 End: 31-72-8203yugzbquodfBOPIYLQ LAWRENCENot AvailableStart: 09-21-2023 End: 47-23-6378esxqiplvwlGFXLALOPK SCHNEIDERNot AvailableStart: 09-18-2023 End: 02-79-7670Xiitbftjw Result Francy Arshad MD Work Phone: noms External Department UnsolicitedStart: 09-18-2023 End: 50-28-2591Qvlowzzcd Result EncounterSajith Arshad MD Work Phone: noms External Department UnsolicitedStart: 09-14-2023 End: 13-45-4543fsgzuaaifnXQZYUB FAWWADNot AvailableStart: 06-30-2023 End: 91-08-2305fambgbnlicGEBFKM FAWWADNot AvailableStart: 06-30-2023 End: 51-01-3314Isgouwgen Result EncounterSajith Arshad MD Work Phone: noms External Department UnsolicitedStart: 06-30-2023 End: 88-60-9304Qtvzcrnvb Result EncounterSajith Arshad MD Work Phone: noms External Department UnsolicitedStart: 06-24-2023 End: 44-64-5982Aalfxwccm Result EncounterSajith Arshad MD Work Phone: noms External Department UnsolicitedStart: 06-24-2023 End: 79-78-5360Sgunfwcgb Result EncounterSajith Arshad MD Work Phone: noms External Department UnsolicitedStart: 05-19-2023 End: 13-30-8110hnqtfjtfxhNPRCIL FAWWADNot AvailableStart: 01-31-2023 End: 80-54-6222remsltmyniFnrzudl HARWOODFacility:[facility]upational Health and WellnessStart: 04-28-2022 End: 55-78-8201qgwkysmwqaSLLIVJ RODRIGUEZFacility:H5Tnixc: 02-17-2022 End: 02-54-9242dyypabijwrYY MELISSA MARKERFacility:M3Odequ: 11-17-2021 End: 17-83-0652zfustrqcqfROETXW H FAWWADFacility:O0Fbusj: 10-14-2021 End: 66-06-5903igalynkiarBXJYKP RODRIGUEZFacility:W7Dxxtf: 10-13-2021 End: 45-75-9913lzpxgryrvjXCUQEN H FAWWADFacility:A1Emszf: 09-26-2020 End: 45-03-8821uburfinwutTskd ProviderFacility:[facility]: 07-03-2020 End: 14-34-2538Mekaybhigar patientPennyjd Noriegamons Work Phone: [facility] Work Phone: Start: 07-03-2020 End: 59-21-9241Bmgaofpndrd Soy Martinez Work Phone: [facility] Work Phone: Start: 06-27-2020 End: 52-69-8394Ieiogmtfosgu consultation with Soy Martinez Work Phone: [facility] Work Phone: Start: 04-30-2020 End: 36-30-8893UqgiihgLglfcqb Short Work Phone: [facility] Work Phone: Start: 04-30-2020 End: 09-38-6781Ncbmwrnkdhib consultation with Humberto Block Work Phone: [facility] Work Phone: Start: 11-16-2019 End: 97-10-8807Frmfuuhdbhaz consultation with Soy Martinez Work Phone: [facility] Work Phone: Start: 09-24-2019 End: 12-33-6489Ppfuzzqhwjgt consultation with Soy Martinez Work Phone: [facility] Work Phone: Start: 05-24-2019 End: 55-69-2957Rccjzil encounter procedureJukirti Maysjonathon Work Phone: [facility] Work Phone: Start: 05-18-2019 End: 79-40-3880Ggiarcm encounter procedureMaulik Geiger Work Phone: [facility] Work Phone: start: 04-25-2019 End: 85-04-2779Quumnfc encounter procedureCYJOSE ALBERTO Nichols [facility] Start: 04-25-2019 End: 96-91-8310Akxoqcmehqb patientPrincess Blackmon Work Phone: [facility] Work Phone: start: 04-25-2019 End: 35-78-3942Fudonlg encounter procedureMaulik Geiger Work Phone: [facility] Work Phone: Start: 04-18-2019 End: 20-22-1139Uinaltv encounter procedureCyjose alberto Ramirez Work Phone: [facility] Work Phone: Start: 87-05-6030Fzlwzvqggbme oral evaluationJulius Summers Work Phone: [facility] Work Phone: start: 04-17-2019 End: 62-68-7093Pquavoeoc department patient visitJukirti Summers Work Phone: [facility] Work Phone: Start: 12-17-2018 End: 02-49-9796Birhtxbwg department patient visitCYPROVIDENCE [facility] End: 67-85-3027Xfkvjym encounter procedureBerger Hospitaltart: 12-08-2018 End: 96-97-1560Vghtbot [facility] Start: 12-05-2018 End: 92-74-0474Claglfy encounter procedureSelect [facility] Start: 10-23-2018 End: 51-50-9249Ougvcoi [facility] Start: 09-14-2018 End: 75-53-8487Wuf patientCyDeaconess Health System Work Phone: [facility] Work Phone: Procedures DateProcedureProcedure DetailPerforming ClinicianStart: 43-98-3644Elp brain brain stem w/o w/contrast Sulema Dorsey MD Work Phone: Start: 10-35-5462NR SHOULDER LEFT W/Fabricio Arshad MD Work Phone: Start: 39-93-5158Rftwf shoulder complete minimum 2 Flako Arshad MD Work Phone: Start: 73-47-4042QJ TOMOSYNTHESIS SCREENING Omid Arshad MD Work Phone: Start: 27-65-4835FrdrhqerbmrPwwnbw Fawwad MD Work Phone: Start: 90-24-6618AJ CHEST WO Laura Arshad MD Work Phone: Start: 27-94-1620Jiujjftajx glycosylated s7vMugiobSuzi Martinez Work Phone: Start: 79-93-0458Ceunoucsd c antibodySuzi Martinez Work Phone: Start: 53-58-8248Fxihpebbbiwyb w/patient 30 minutes Laverne Gerry Work Phone: Start: 41-56-2377Ra-focused hlth risk assmt score doc stnd instrmAngelmagdalena Martinez Work Phone: Start: 78-67-4663Fepkmncrqqhkl w/patient 30 minutes Jojarred Velazquez Work Phone: Start: 31-86-4985Fo tobacco screen rcvd tlkCassie Umair Work Phone: Start: 34-16-8862Emvrc occult fecal hgb deter ia qual feces 1-3Angela Michelle Work Phone: start: 53-38-9032Zcxggw risk assess high riskJulius Melina Work Phone: Start: 95-00-0208Fyzuiac complete film seriesJulius Melina Work Phone: Start: 59-34-8399Nfqvf hand minimum 3 viewsALI AHMAD Start: 86-98-4180Tlimvtkgpcfgq w/patient 30 minutesDanielle Blackmon Work Phone: Start: 30-92-6126Do tobacco screen rcvd tlkCynthia Mccone Work Phone: start: 48-93-2925Cuqpwaevu imageJulius Melina Work Phone: Start: 73-99-5103Jxjwl count complete auto&auto difrntl wbcALI AHMADStart: 62-38-9331E-reactive proteinALI AHMADStart: 79-67-8680Hqlvp dip stick/tablet reagent auto microscopyALI AHMADStart: 07-91-0164JVI REFERRAL [facility]: 34-93-5979LAEQWINWO PATIENTAME [facility]RNAM[facility]: 81-78-3849OPFW CARDIACAME [facility]RNA[facility]: 12-13-2018 DIVISION FIELD INSPECTOR REPORTAME [facility]RNAM[facility]: 81-64-3370RWLTCTWR OXYGEN THERAPY PROTOCOL AMAliya FREEMANMoorhead: 96-60-5534Zwewl metabolic panel calcium totalNORTHERN COCHISE COMMUNITY HOSPITALALBINA FREEMAN Start: 87-14-3153Osoqb count complete automatedAME [facility]RNAMonson [facility]: 27-58-1772QOUC CODEAME [facility]RNAM[facility]: 48-04-1075OHAIQMHC OXYGEN THERAPY PROTOCOLAME ERNAWESTOVER [facility] Start: 70-99-1245HOEYDD PHYSICIAN (SPECIFY)AMEEAliya ERNAM[facility]: 20-54-1609GNRSKDR COMMUNICATIONBANNER ERNAM[facility]: 63-18-2703NDUCQHMY SITE CAREBANNER ERNAM[facility]: 49-83-8794RSXUMWVWZENG [facility]RNAM[facility]: 12-92-4043OWVRENE STATUS (FROM ED OR OR/PROCEDURAL)AMLINWOOD ERNAJOSEMoorhead: 81-51-8231QNSVTQTHA MONITORINGBANNER PETE Start: 62-21-6144GMXJZ SIGNSBANNER ERNAMonson Developmental Center: 21-63-4646JEUAV CAREBANNER PETE Start: 57-29-4120LJVPBQG STATUS (FROM ED OR OR/PROCEDURAL)[place] [facility]RNAM[facility]: 07-62-0946SUCQYCJPZ CLOTTING TIMEBANNER ERNAMonson Developmental Center: 12-12-2018R & l hrt cath w/njx l ventriculog img s&iAME [facility]RNAM[facility]: 70-85-9748KYNSAH INFORMED CONSENT AMLINWOOD ERNAJOSEMoorhead: 71-56-9452WJOZ LAB REPORTAME ERNAMonson Developmental Center: 92-72-2188Uqpvi metabolic panel calcium totalALI AHMADStart: 60-07-7628Eiitq count complete auto&auto difrntl wbcALI AHMADStart: 38-23-1835Dz strs tst xers&/or rx cont ecg w/o i&rALI AHMADStart: 58-55-5466Pchj tthrc r-t 2d w/wom-mode compl spec&colr d ALI AHMADStart: 56-16-4930Mempn of thyroid stimulating hormone tshALI AHMAD Start: 73-91-2114Lbwio count complete auto&auto difrntl wbcALI AHMADStart: 99-54-4224Qqalnfuatnuox metabolic panelALI AHMADStart: 59-42-0060Yimgl panelALI AHMADStart: 18-90-3518Wpbup 1996 panel - Serum or PlasmaDavek Jana DUGAN Work Phone: Start: 53-40-4419ARIWMQN DISORDER NOSCynthia NyeStart: 62-96-1454GHJBYWGANNQmzeeit NyeStart: 70-16-6081NJWLOLIQUFEX (SYSTEMIC)Laura NyeStart: 94-70-4800Puc/trnsxj flp tube abdl/vag appr uni/biAngela Michelle Start: 50-25-2467Bqwgldjp of fallopian tubeCynthia NyeStart: 51-96-4796lipp medical/surgical history [use for free text]Laura NyeStart: 98-23-0888Opkoulkn procedureCynthia Sean Plan of Treatment DateCare ActivityDetailAuthorStart: 73-54-3834XYM Vaccine (1 - 1-dose 75+ series)RSV Vaccine (1 - 1-dose 75+ series)[facility]28 Diabetes ScreeningDiabetes ScreeningMercy Health West Hospitaltart: 32-91-1171Jqiwgtsw ScreeningDiabetes ScreeningMercy Health West Hospitaltart: 50-89-5023Lfzgnrqo Screening Diabetes ScreeningMercy Health West Hospitaltart: 26-90-0923Nzyfhffh ScreeningDiabetes ScreeningMercy Health West Hospitaltart: 84-21-6877Bllytfxb ScreeningDiabetes Screening [facility]: 90-44-0154Awuouppi ScreeningDiabetes ScreeningMercy Health West Hospitaltart: 02-12-2025 End: 82-94-6877Utruiej encounter lgapxrelk14/07/2025 1:00 PM EDT Office Visit On License Of [facility] [address] [place] [address] Tracie Mcclain MD [address] [place], [place] [id number] Scheduling Request - Established PatientBurkhardt Brain Tumor CenterComment on above:Scheduling Request - Established PatientStart: 02-10-2025 End: 19-58-3627Lobuxmb encounter ckvxiqryl47/05/2025 2:00 PM EDT Appointment [facility] Radiology MRI [id number] JEFF [id number] Scheduling Request - Established [facility] Radiology MRI Comment on above:Scheduling Request - Established PatientStart: 02-01-2025 End: 89-92-2649Zqtgxk-up ivlpzikly12/26/2025 1:30 PM EDT Visit (SP) Office Hematology/Oncology [address] [place], [place] [phone] Jennifer Dash APRN.[facility] [address] [place] [address] 4 week follow up wit labHematology/OncologyComment on above:4 week follow up wit labStart: 02-01-2025 End: 71-38-7117Bsyipkz encounter lufkboxdb77/26/2025 1:15 PM EDT Office Visit [facility] [address] [place] [address] 4 week follow up wit labrtTr[facility] LaboratoryComment on above:4 week follow up wit labStart: 67-53-1249Hswilezhm vaccinationUdall ClinicStart: 01-04-2025 End: 29-73-6710Ddlmze-up jbycthlxb98/29/2025 3:20 PM EDT Visit (SP) Office Hematology/Oncology [address] [place], [place] [phone] Keith Dorsey MD [address] [facility] [facility] [place] [address] 4 week follow up with labHematology/OncologyComment on above: 4 week follow up with labStart: 01-04-2025 End: 90-03-0752Xmyfmdq encounter efdbzzcqu03/29/2025 3:00 PM EDT Office Visit [facility] [address] [place] [address] Lab [facility] Comment on above:Lab todayStart: 12-07-2024 End: 11-42-3959Tbtbin-up zroygazae09/01/2025 9:20 AM EDT Visit (SP) Office Hematology/Oncology [address] [place] [phone] Keith Dorsey MD [address] [place] [address] scan resultsHematology/OncologyComment on above:follow up for ct scan resultsStart: 12-07-2024 End: 35-12-1980Heqhpgp encounter uufgsekdh47/01/2025 9:00 AM EDT Office Visit [facility] [address] [place] [address] Lab [facility] Comment on above:Lab todayStart: 12-04-2024 End: 36-05-0595Gqbyptt encounter jprxsranv38/29/2025 2:30 PM EDT Office Visit On License Of [facility] [address] [place] [address] Tracie Mcclain MD [address] [place] [address] Time Frame: COREY < 1 weekBurkaiser [facility] hospital Brain Tumor CheritonComment on above:Time Frame: COREY < 1 weekStart: 12-03-2024 End: 99-30-4023Vsmuaka encounter xgsepyjon40/28/2025 1:20 PM EDT Appointment Radiology MRI [address] [place], [place] [id number] MRI Brain w/wo contrastRadiology MRIComment on above:MRI Brain w/wo contrastStart: 70-55-9484XMO Vaccine (1 - Risk 60-74 years 1-dose series)RSV Vaccine (1 - Risk 60-74 years 1-dose series)[facility]: 11-12-2024 End: 21-48-7591Rewhiqg encounter jyfgubxyb56/07/2025 2:30 PM EDT Office Visit On License Of [facility] [address] [place] [address] Ceasar Delgado MD [address] [place] [address] Time Frame: COREY < 1 weekBurard Brain Tumor CenterComment on above:Time Frame: COREY < 1 weekStart: 11-06-2024 End: 69-45-2060Octuek-up ofnyehryi36/01/2025 9:00 AM EDT Visit (SP) Office Hematology/Oncology [address] [place] [address] [place], [place] [phone] Keith Dorsey MD [address] [place] [address] scan resultsHematology/OncologyComment on above:follow up for ct scan resultsStart: 10-30-2024 End: 76-04-5007Cnegnjc encounter aosixjxsu45/24/2025 2:15 PM EDT Appointment Radiology Pet CT [address] [place] [address] Ct Chest without contrastRadiology Pet CTComment on above:Ct Chest without contrastStart: 10-30-2024 End: 85-95-0603XE Chest [facility]Av[facility] Work Phone: Comment on above:Expected: 10/30/2024 (Approximate), Expires: 10/11/2025Start: 10-12-2024 End: 53-37-3197Akdcay-up ksquwtqab35/06/2025 9:00 AM EDT Visit (SP) Office Hematology/Oncology [address] [place], [place] [phone] Keith Dorsey MD [address] [place] [address] 10/10 follow up with labHematology/OncologyComment on above:10/10 follow up with labStart: 10-12-2024 End: 10-24-9374Shsxpkj encounter epgubidfu07/06/2025 8:45 AM EDT Office Visit [facility] [address] [place] [address] 10/10 follow up with [facility] LaboratoryComment on above:10/10 follow up with labStart: 10-10-2024 End: 65-05-2167QCV W Auto Differential panel - BloodCOMPLETE BLOOD COUNT AND DIFFERENTIAL Lab Routine GBM (glioblastoma multiforme) (HCC) Pulmonary nodu les/lesions, multiple Expected: 10/10/2024, Expires: 01/09/2025[facility] Comment on above:Expected: 10/10/2024, Expires: 01/09/2025Start: 10-10-2024 End: 40-57-5994Dtwyxtxiqfhnc metabolic 2000 panel - Serum or PlasmaCOMPREHENSIVE METABOLIC PANEL Lab Routine GBM (glioblastoma multiforme) (HCC) Pulmonary nodules/lesions, multiple Expected: 10/10/2024, Expires: 01/09/2025[facility] Work Phone: Comment on above:Expected: 10/10/2024, Expires: 01/09/2025Start: 10-10-2024 End: 45-51-9529Hgbsms-up jacnofyun83/04/2025 11:30 AM EDT Visit (SP) Office Hematology/Oncology [address] [place] [address] Toña Franklin PANury [address] [place] [address] 10/10 follow up with labHematology/OncologyComment on above:10/10 follow up with labStart: 10-10-2024 End: 30-31-1886Okazxwv encounter ycdnwoalz20/04/2025 11:15 AM EDT Office Visit [facility] [address] [place] [address] 10/10 follow up with [facility] LaboratoryComment on above:10/10 follow up with labStart: 08-28-2024 End: 77-09-9320bvgjamvpwt38/22/2025 3:20 PM EDT Visit (SP) Office Hematology/Oncology [address] [place] [address] [address] [place], [place] [phone] Keith Dorsey MD [address] [place] [address] [place] [address] Transfer of careHematology/OncologyComment on above:Transfer of careStart: 63-02-1732Yogrrjgaz for malignant neoplasm of breastMammogramNOMS HealthcareStart: 95-80-3297Qidfd-19 Vaccine ( season)Covid-19 Vaccine ( season)[facility]: 62-58-3674Qdzbghnfg vaccination Influenza Vaccine (#1)[facility]: 58-50-8120Jegoj panelLipid ScreeningMercy Health West Hospitaltart: 59-29-4616Kizbeui Established [facility] Work Phone: Start: 49-76-8621_OKXO-CoV-2 COVID19 testHealth [facility] Work Phone: Start: 04-45-3915Cwvnbmuqvvho Establisted Patient [facility] Work Phone: Start: 44-47-0566Ffiop Kit Lens Generator,In HouseVal[facility] Work Phone: start: 98-41-7037Diyrjko Established [facility] Work Phone: Start: 65-72-9256IU Hand 3 Views ([address])[facility] Work Phone: start: 65-71-8970Moojgd MiscellaneousHarper Hospital District [facility] Work Phone: Start: 38-15-9084JepqbqHarper Hospital District [facility] Work Phone: Comment on above:Note: Please make a referral to:Deformed thick great toe nail, nail fungusStart: 78-56-6539FbsdoylzdeCgramh Partners [facility] Work Phone: comment on above:Note: Please make a referral to: Start: 91-07-8118Mgfyutcqltvf Vaccine: 50+ (1 of 1 - PCV)Pneumococcal Vaccine: 50+ (1 of 1 - PCV)[facility]: 04-20-0937Fgrqqhjw Vaccine (1 of 2) Shingrix Vaccine (1 of 2)[facility]: 53-86-3026Ibtuqxqlw for malignant neoplasm of colonMercy Health West Hospitaltart: 78-03-8347Wdcanwrbh for malignant neoplasm of breastMammogram ScreeningMercy Health West Hospitaltart: 1994 Screening for malignant neoplasm of cervixNOMS HealthcareStart: 1985 Screening for malignant neoplasm of cervixMercy Health West Hospitaltart: 11-21-1983 Pneumococcal Vaccine: 50+ (1 of 2 - PCV)Pneumococcal Vaccine: 50+ (1 of 2 - PCV) [facility]: 21-83-7326Dbudumwg Vaccine (1 of 2)Shingrix Vaccine (1 of 2)[facility]: 43-12-0025Tugkg microalbumin profileDTaP,Tdap,Td Vaccine (1 - Tdap)[facility]: 48-52-0588Cbfkmcw ScreeningAnxiety ScreeningMercy Health West Hospitaltart: 51-72-9760Zpjoxbnnik ScreeningDepression ScreeningMercy Health West Hospitaltart: 78-37-9996Sijmrvizo C screeningHepatitis C ScreeningMercy Health West Hospitaltart: 48-30-9182NOK screeningHIV ScreeningMercy Health West Hospitaltart: 29-94-2199Klfmcduhc for malignant neoplasm of cervixCervical Cancer ScreeningMercy Health West Hospitaltart: 25-36-0566Bngoh-19 Vaccine (#1)Covid-19 Vaccine (#1)[facility]: 95-87-7229Knuxiqskv for malignant neoplasm of colon [facility] End: 90-45-5920EQ Brain WO and W contrast IVMRI BRAIN WO/W IVCON Radiology Routine GBM (glioblastoma multiforme) (HCC) Pulmonary nodules/lesions, multiple [address] 11/06/[address] Work Phone: Comment on above:1 Occurrences starting 11/06/2024 until 12/06/2025 End: 02-74-5368FI Brain WO and W contrast IVMRI BRAIN WO/W IVCON Radiology Routine GBM (glioblastoma multiforme) (HCC) 1 Occurrences starting 12/05/2024 until 01/04/2026[facility] Work Phone: Comment on above:1 Occurrences starting 12/05/2024 until 01/04/2026 End: 23-91-2584FH Brain WO and W contrast IVMRI BRAIN WO/W IVCON Radiology Routine GBM (glioblastoma multiforme) (HCC) 1 Occurrences starting 12/06/2024 until 01/05/2026[facility] Work Phone: Comment on above:1 Occurrences starting 12/06/2024 until 01/05/2026 Payers DatePayer CategoryPayerPolicy [id number] [id number] 2023Medicaid (Managed Care) [employer] Member Subscriber Plan / Payer (Effective 2022- Present) Name: Raeann Eckert Relation to Subscriber: Self Name: Diana Eckertubscriber ID: [id number] Payer ID: Not on file Group ID: Not on file Type: Not on file Address: [address] [id number] [id number] [id number] 1965Unknown [id number] 06.24.830.1.864663.3.57[id number] 2.1.603190.3.57[id number] 2.16.840.1.352169.3.57[id number] 2..840.1.679587.3.57[id number] 2.16.840.1.834335.3.57[id number] 2..840.1.702558.3.57[id number] 2..840.1.843809.3.57[id number] 2..840.1.297267.3.57[id number] 2.840.1.373485.3.579.[id number] 2.840.1.819921.3.579.[id number] 2.840.1.201343.3.579.[id number] 2..840.1.615938.3.57[id number] 2.840.1.394140.3.579.2.31112-48-7974Xysqaql3202468 2.840.1.233357.3.579.2.20070-85-7528Kmgbujg8677588 2..840.1.436955.3.579.2.[id number] 2..840.1.457699.3.579.2.3[id number] 2.840.1.201146.3.57[id number] 2.16.840.1.259952.3.579.2.95[id number] 2.16.840.1.969911.3.579.2.874998-68-0517Dyeteli8274923 2.16.840.1.054854.3.579.2.785450-34-8262Kqcveiv1312343 2.16.840.1.037561.3.579.2.345170-45-7304Loavqhv2552821 2.16.840.1.806963.3.579.2.81[id number] 2.16.840.1.726047.3.579.2.101419-29-6698Hoohtme2777507 2.16.840.1.633670.3.579.2.747238-79-5865Jqeomas1331031 2.16.840.1.346984.3.579.2.256274-04-3545Wqiggto1887558 2.16.840.1.412877.3.579.2.916071-86-4566Wdyftsg4786075 2.16.840.1.596827.3.579.2.729552-75-0473Ebhcgac0720391 2.16.840.1.280318.3.579.2.[id number] 2.16.840.1.447387.3.57[id number] 2.16.840.1.410526.3.579.2.170588-91-0270Tshzhzf0847057 2.16.840.1.070029.3.579.2.618249-61-0893Eszwdeb8450823 2.16.840.1.387274.3.579.2.371972-81-8055Avbpqfd0587570 2.16.840.1.914946.3.579.2.145366-11-9284Abcv-wop12-55-3167Rnox-[id number] [id number]-zks339412 2.16.840.1.381818.3.140.1.04831.5.4 Social History DateTypeDetailFacilityAssertionGender identity finding (finding)[facility] Work Phone: assertionFinding of sexual orientation (finding)[facility] Work Phone: assertionTobacco user (finding)[facility] Work Phone: Tobacco smoking statusUnknown if ever smokedAdena Regional Medical CenterAssertionExposure to pollution (event)[facility] Work Phone: start: 03-28-2023 End: 42-54-7939CivlghjoqQabaxz [facility] Work Phone: assertionAlcohol consumption screening (procedure) [facility] Work Phone: assertionEmotional stress (finding)[facility] Work Phone: assertionEmployment finding (finding)[facility] Work Phone: Start: 09-14-2023 End: 29-41-7607Ditevnq smoking status NHISEx-smokerAdena Regional Medical CenterHistory of tobacco useCurrent smokerAdena Regional Medical CenterHistory of tobacco useCigarette Smoker [facility]: 09-14-2023 End: 40-22-3635Xnjfswf use and exposureSmokeless tobacco non-userMercy Health West Hospitaltart: 08-24-2024 End: 99-74-5762Jtvktbvxe beverage intakeEx-drinker (finding)[facility] Start: 06-30-2023 End: 89-68-0199Vwshnch of Social functionCleUniversity Hospitals Parma Medical Centertart: 06-30-2023 End: 42-50-0061Twzwmrr use panelMercy Health West Hospitaltart: 01-07-3767Ezc assigned at birthNot on fileMercy Health West Hospitaltart: 05-19-2023 End: 98-24-1127Usshxsy smoking status NHISSmokes tobacco dailyNOMS Healthcare Work Phone: History of tobacco usePassive smokerNOMS Healthcare Start: 06-30-2023 End: 52-43-0145Dbbtvmpgt beverage intakeLifetime non-drinker (finding)[facility]OM[facility] HealthcareNEGATED: Highlighted rowAssertionCurrent drinker of alcohol (finding) [facility] Work Phone: NEGATED: Highlighted rowAssertionFinding relating to drug misuse behavior (finding)[facility] Work Phone: NEGATED: Highlighted rowAssertionExposure to pollution (event)[facility] Work Phone: NEGATED: Highlighted rowAssertionIllicit drug use (finding)[facility] Work Phone: NEGATED: Highlighted rowAssertionMisuse of prescription only drugs (finding)[facility] Work Phone: NEGATED: Highlighted rowAssertionValley Springs Behavioral Health Hospital Work Phone: Functional Status RwcgVfghrnyoitQcphpmLhsyjvzc04-31-9753Stzhwtp Health Questionnaire 2 item (PHQ- 2) [Reported][facility] Mental Status DateAssessmentResultFacilityCognitive functionCognitive functioning was normal Cognitive function finding (finding)[facility] Work Phone: Clinical Notes 04-28-2022 to 02-26-2025 Note Date & WwelCnbwYcstaddb90-36-0087 NoteHNO ID: [id number] Author: JENNIFER DASH APRN.[employer] Service: ? Author Type: Nurse Practitioner Type: Progress Notes Filed: 02/26/2025 11:49 Note Text: NAME: Raeann Eckert CLINIC NO.: [id number] DATE OF SERVICE:February 26, 2025 (Ekta) Some elements in this clinic note that are critical to medical decision making have been carefully reviewed and included from a prior clinic note dated: February 01, 2025 (Ekta) Referring Provider: Self Referred Additional Clinicians involved in Raeann Eckert's care: DIAGNOSIS: Gliosarcoma CASE SUMMARY / ASSESSMENT: 59 year old woman who presented with mental status changes in November 2024 and was found to have a right partietal lobe lesion with vasogenic edema. 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 She is currently due to start C5 and was released from [place] to return back to her home in [place]. SUMMARIZED PLAN OF CARE: C11 Temodar to start tomorrow or when arrives in mail. continue with increased dose of Temodar 360mg, D1-5 q 28 days RTC in 4 weeks with labs same day prior to C12 Treat through May 2025. Annual CT Chest to monitor pulmonary nodules - October 2025 Mammogram and biopsy COREY - Ordered last visit - patient canceled due to not feel well. AI Assisted A/P: 1. Breast nodule (N63.0) Palpable nodules consistent with patient's history of fibrocystic breast disease; one nodule is concerning and requires further evaluation. - Order mammogram and ultrasound to evaluate breast nodules. - Educated patient on the importance of completing the mammogram and ultrasound for further evaluation. 2. Encounter for antineoplastic chemotherapy (Z51.11) 3. GBM (glioblastoma multiforme) (HCC) (C71.9) Reviewed neurology notes from Dr. Tracie Mcclain dated 02/13/2024; recent brain MRI showed no new growth or changes. - Continue temozolomide 360 mg daily for 5 days, followed by 3 weeks off; to begin cycle 11 when medication arrives. - Encouraged patient to continue walking as recommended by Dr. Mcclain. - Follow-up in [address] Fry. 4. 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 - Encouraged continuation of walking and engagement in enjoyable activities (e.g., coloring, crafts, music) to help manage stress and support cognitive function. - Discussed importance of stress reduction and potential benefits of [place] [facility] arrangements. 6. Pulmonary nodules/lesions, multiple (R91.8) Annual CT chest is scheduled to monitor pulmonary nodules. - Continue annual CT chest surveillance. 7. Gastro-esophageal reflux disease without esophagitis (K21.9) GERD is stable with ongoing omeprazole therapy. - Continue omeprazole 20 mg daily; 90-day supply sent to pharmacy. 8. Constipation, unspecified constipation type (K59.00) Constipation likely related to current medication regimen. - Advised patient to resume Senna-S, starting with 1 tablet in the morning and 1 at night; may increase up to 6 tablets daily as needed. CASE HISTORY: Reverse Chronological Order 02/10/2025 - MRI Brain: GROSSLY STABLE SMALL RIGHT PARIETAL RESECTION CAVITY, SHOWING CONTINUED GRADUAL INVOLUTION SINCE 04/02/2024, WITH SMALL FOCUS OF STABLE ENHANCEMENT 2. NO PERFUSION ABNORMALITY OUTSIDE OF CONFOUNDING SUSCEPTIBILITY EFFECT 3. NO NEW DISTAL SUSPICIOUS ENHANCEMENT 12/03/2024 - MRI Brain: Essentially stable postoperative appearance of the brain when compared to prior exam from 07/27/2024. No findings to suggest progression. 10/30/2024 - CT Chest: 1. Bilateral subcentimeter pulmonary nodules, as above. Given the patient's history, correlation with follow-up examinations is recommended to assess for stability. few scattered noncalcified pulmonary nodules measuring 3 mm or less are appreciated: For example, on the right, image 47, series 4. On the left, images 23, 47, 88, series 4. 2. No substantial intrathoracic adenopathy is identified. 3. Lower neck, lymph nodes, and mediastinum: 7 mm peripherally calcified left lobe thyroid hypodensity is appreciated. 07/27/2024 - CT Chest wo c: 1. Bilateral subcentimeter pulmonary nodules, as above. Given the patient's history, correlation with follow-up examinations is recommended to assess for stability. 2. No substantial intrathoracic adenopathy is identified. 10/10/2024 - start C6 Temodar- 360 mg on D1-5 (more content not included)... [facility]10-07-2025 NoteHNO ID: [id number] Author: TRACIE MCCLAIN MD Service: ? Author Type: Physician Type: Progress Notes Filed: 02/14/2025 21:17 Note Text: [facility] Established Patient Visit The patient was Dr. Keith Dorsey for neuro-oncologic evaluation. Final recommendations will be communicated back to the requesting physician by way of the shared medical records, or letters to requesting physician via US Mail. Diagnosis Gbm (glioblastoma multiforme) (hcc) Subjective Chief Concern: R Parietal Glioblastoma, IDH Wild-Type, MGMT Hypermethylated, WORKFORCE PLANNING ANALYST WHO Grade 4 History of Present Illness: Raeann Eckert is a right handed 59 year old woman who presents to Neuro-Oncology Clinic for new patient evaluation of right parietal glioblastoma. She presented with mental status changes in November 2023 and was found to have a right parietal lobe lesion with vasogenic edema. Late November 2024, she underwent craniotomy at [facility]. Her history is as follows: 11/22/2023-11/29/2024 - Admitted at [facility] - presented as a direct admission from [facility] for NSGY evaluation for a R parietal lesion with surrounding edema noted on CTH at the OSH 11/22/2023 - MRI Brain/Spine: Brain: Heterogeneous solid cystic mass within the right parietal lobe measuring up to 3.5 cm. Differential considerations include a primary WORKFORCE PLANNING ANALYST malignancy such as a high-grade glioma versus metastatic disease. Associated mild mass effect with slight leftward midline shift. 11/23/2023 - Right Craniotomy - Case #: [id number]: Dr. Raphael Mckee at [facility] A-B. 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 Endothelial proliferation and necrosis are present. Immunohistochemistry performed on Block B2 demonstrate the lesional cells to be POSITIVE for CD10, focal GFAP, focal Olig2, and ATRX (retained, wild-type), while being NEGATIVE for IDH1 (R132H wild-type) and BRAF. P53 is overexpressed. PHH3 highlights mitotic figures up to 30/10 HPF and the Ki-67 proliferation index is up to approximately approximately 40%. Addendum: Negative IDH1 (R132H) immunohistochemistry is considered equivalent to VPU-gbnc-srdh status in this age group, particularly in an ATRX-retained tumor. Additional studies performed: -CD68, CD163, MPO, and lysozyme highlight copious associated histiocytes, but are weak/negative in the neoplastic cells. -Vimentin is diffusely positive confirming antigenicity of the lesional cells. -BRG1 and INI1 are retained. -The remaining markers are negative: SOX10, S100, SMA, pankeratin, inhibin, MOC-31, CD1a, CK5/6, MART1, p63, SF1, SALL4, GATA3, ERG, desmin, FRANCESCA, CK19, CK20, INSM1, Mono-EP4, PAX8, CAM 5.2, CD30, and CK7. 01/12/2024-03/08/2024 - 30 fractions concurrent radiation: per Dr. Alexandr Field at [facility] 01/12/2024-03/08/2024 - Concurrent Temodar per Dr. Rebecca Oh at [facility] - held 02/23-03/01 due to low platelets 05/21/2024-05/25/2024 - C1 adjuvant Temodar 320mg 5 days on (23 days off) Today, Mrs. Eckert presents with her son. After moving from [place] she establishes her care in [place]. She expressed the dseire to receive oncologic care from Dr. Keith Dorsey and also follow up at [facility]. Mrs. Eckert reports persistent fatigue, balance issues, continuous headaches rated 5/10, and occasional speech stumbling. Headaches improve when lying down and she does not take any pain medication for it. She experiences difficulty with daily activities due to fatigue and balance problems, requiring frequent rest after minimal exertion. She recalls a seizure episode coinciding with the initial diagnosis, leading to a prescription of Keppra 500 mg BID, however she takes Keppra once a day, which she tolerates well. She denies any further seizures since starting Keppra. Mrs Eckert experiences nausea and vomiting with temozolomide, managed with Zofran. She reports occasional constipation, managed with Colace. She and her son note increased confusion and speech difficulties following the last temozolomide cycle in November, more pronounced thanprevious cycles. Additionally, her son reports increased confusion and behavioral changes after the 7th cycle of TMZ, described by her son as flying off the handle. . It was mentioned that during this episode it was not possible to have a normal conversation with her, she got very anxious and angry very quickly. After almost five days after the cycle is complete she is back to her baseline. She has three sons and is currently not working. *Some of the above information per chart review i (more content not included)... [facility]10-07-2025 NoteHNO ID: [id number] Author: CYDNEY STOUT MA Service: ? Author Type: C.O.D. Clerk Type: Progress Notes Filed: 02/14/2025 21:17 Note Text: Additional intake questions: Has the patient had fever, nausea, vomiting, diarrhea, constipation, fatigue for > 1 week? Yes, constipation (day of last BM this morning) and Provider Notified Does the patient have a decreased appetite? No Does patient want to see a Armhole Presser? No (yes to any of above refer patient to schedulers for dietitian appointment) ) Does patient have any new or increased numbness or tingling of extremities? No Is patient interested in fertility information? No Does patient need any prescription refills? No Does patient have an advanced directive in place? No, Patient referred to Resource Center Electronically Signed By: Cydney Stout [facility] 02-10-2025 NoteHNO ID: [id number] Author: JAVIER ADAME, custom furrier Service: Radiology Author Type: Technologist Type: Progress Notes Filed: 02/10/2025 15:16 Note Text: Radiology Service Progress Note PATIENT NAME: Raeann Eckert DATE OF SERVICE: February 10, 2025 TIME: 3:16 PM PATIENT IDENTITY VERIFICATION COMPLETED USING TWO (2) IDENTIFIERS: Name and Date of confirmed by patient verbally and Name and Date of confirmed by identification band. FALL SCREENING: Has the patient had 2 falls in the last year or 1 fall with injury or currently using an Ambulatory Assistive Device (Walker, Cane, Wheelchair, Crutches, etc.)? No PATIENT GENDER DATA: Assigned female at . status: : No status: NO. PATIENT RELEVANT IMPLANT DATA REVIEWED: Yes PATIENT PRESENTS WITH AN IMPLANTABLE OR ATTACHED AUDITOR MEDICAL CLAIMS: No RADIOLOGY DEPARTMENT: MR; Exam(s) Completed: Head: Routine Brain with Perfusion. Anesthesia: No. Aromatherapy Administered: No PERIPHERAL IV DATA: Site assessment: Clean,Dry and Intact, Site disposition Discontinued SIGNED BY: Javier Adame custom furrier February 10, 2025 3:16 [id number] NoteHNO ID: [id number] Author: JENNIFER DASH APRN.[employer] M[employer]ER Service: ? Author Type: Nurse Practitioner Type: Progress Notes Filed: 02/01/2025 15:46 Note Text: NAME: Raeann Eckert CLINIC NO.: [id number] DATE OF SERVICE:February 01, 2025 (Ekta) Some elements in this clinic note that are critical to medical decision making have been carefully reviewed and included from a prior clinic note dated: January 04, 2025 (Jana) Referring Provider: Self Referred Additional Clinicians involved in Raeann Eckert's care: DIAGNOSIS: Gliosarcoma CASE SUMMARY / ASSESSMENT: 59 year old woman who presented with mental status changes in November 2024 and was found to have a right partietal lobe lesion with vasogenic edema. 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 She is currently due to start C5 and was released from [place] to return back to her home in [place]. SUMMARIZED PLAN OF CARE: C10 Temodar to start tomorrow continue with increased dose of Temodar 360mg, D1-5 q 28 days RTC in 4 weeks with labs same day prior to C11 Treat through May 2025. Annual CT Chest to monitor pulmonary nodules - October 2025 AI Assisted A/P: 1. Breast nodule (N63.0) Three palpable nodules in the left breast at the 12 o'clock position, clustered together; one may have ruptured. No recent mammogram; last chest CT was in October. - Order diagnostic mammogram and left breast ultrasound as soon as possible. - Discussed possibility of biopsy depending on imaging results. 2. Encounter for antineoplastic chemotherapy (Z51.11) 3. GBM (glioblastoma multiforme) (HCC) (C71.9) Patient is on cycle 10 of Temodar, to be started tomorrow (days 1-5, 24 days off). Platelet count improved from 113 to 132 over the past month. No new shortness of breath, cough, nausea, vomiting, fever, or chills. Headaches and tingling from scarring persist. - Continue Temodar as scheduled. - Encourage massage therapy for headache and scar-related tingling. - Follow-up in 4 weeks. 4. Malaise and fatigue (R53.81) Patient reports constipation at the end of Temodar cycles; managed with stool softeners. - Continue current constipation management with stool softeners. 5. Pulmonary nodules/lesions, multiple (R91.8) 6. 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 No findings to suggest progression. 10/30/2024 - CT Chest: 1. Bilateral subcentimeter pulmonary nodules, as above. Given the patient's history, correlation with follow-up examinations is recommended to assess for stability. few scattered noncalcified pulmonary nodules measuring 3 mm or less are appreciated: For example, on the right, image 47, series 4. On the left, images 23, 47, 88, series 4. 2. No substantial intrathoracic adenopathy is identified. 3. Lower neck, lymph nodes, and mediastinum: 7 mm peripherally calcified left lobe thyroid hypodensity is appreciated. 07/27/2024 - CT Chest wo c: 1. Bilateral subcentimeter pulmonary nodules, as above. Given the patient's history, correlation with follow-up examinations is recommended to assess for stability. 2. No substantial intrathoracic adenopathy is identified. 10/10/2024 - start C6 Temodar- 360 mg on D1-5 q 28days 09/12/2024 - Start C5 Temodar - increase to 360mg on D1-5 q 28 days 08/13/2024-08/17/2024 - C4 D1-5 q 28 Temodar 07/27/2024 - MRI Brain: Postsurgical changes of prior right parietal craniotomy and mass resection. Slight interval increase in surrounding hyperintensity with new mildly irregular enhancement along the medial margin of the resection cavity. Findings may relate to evolving posttreatment change and/or recurrent or progressive disease. Recommend continued attention on follow-up. 07/16/2024-07/20/2024 - C3 Temodar 06/19/2024-06/23/2024 - C2 Temodar 05/30/2024 - MRI Brain: Postsurgical changes of prior right parietal mass resection. No findings suggestive of recurrent or progressive disease. Mild increase in hyperintensity along the anterior and superior margins of the resection cavity may relate to evolving posttreatment changes. 05/21/2024-05/25/2024 - C1 adjuvant Temodar 320mg 5 days on (23 days off) 04/02/2024 - MRI Brain: Postoperative changes of right parietal GBM resection, without evidence of residual or recurrent tumor. Expected evolution of postoperative changes with significant inter (more content not included)...[facility] 02-01-2025 NoteHNO ID: [id number] Author: SANDY LOCK MA Service: ? Author Type: C.O.D. Clerk Type: Progress Notes Filed: 02/01/2025 15:46 Note Text: Pt states that she found 3-4 lumps on her left breast about 4 days ago. Sandy Lock, [facility]08-29-2025 Instructions* Patient Instructions* Keith Dorsey MD - 01/04/2025 3:59 PM EDT C9 Temodar to start tomorrow continue with increased dose of Temodar 360mg, D1-5 q 28 days RTC in 4 weeks with labs same day prior to C10 Treat through May 2025. We discussed your headaches and sinus symptoms: - You can try taking an antihistamine with your current medications to see if it helps with your symptoms. - Use Afrin nasal spray for up to 2 days in a row to relieve nasal congestion. Do not use it for more than 2 consecutive days to avoid mucosal dependency. You can take a break for a couple of days and use it again if needed. We discussed your chemotherapy and lab results: - Your lab results, including your white blood cell count, platelets, and chemistries, look good. Your platelets are slightly lower but not at a level requiring a delay in treatment. If your platelets drop below 90, we may need to delay your Temodar for an extra week, but this is not necessary at this time. - You should start your next cycle of Temodar (cycle 9) tomorrow, as long as the prescription is filled today. I have sent the prescription to your pharmacy. - After completing 12 cycles of Temodar, we will monitor your condition with regular scans. We discussed your dry skin: - Your dry skin is likely related to chemotherapy. I recommend using a heavy cream like Eucerin formoisturizing. Alternatively, you can use avocado oil, which is effective but may leave your skin feeling greasy. - If your current moisturizer (CeraVe) is not helping, switch to Eucerin or avocado oil and monitorfor improvement. We discussed your request for a handicap placard: - I will provide a prescription for a handicap placard. You can use this to apply for the placard, which will help with parking accessibility. Please let me know if you have any additional questions or concerns. [facility] History of Present illness Narrative* Keith Dorsey MD - 01/04/2025 3:20 PM EDT Images from the original note were not included. NAME: Raeann Eckert CLINIC NO.: [id number] DATE OF SERVICE: January 04, 2025 (Jana) Some elements in this clinic note that are critical to medical decision making have been carefully reviewed and included from a prior clinic note dated: December 07, 2024 (Jana) Referring Provider: Self Referred Additional Clinicians involved in Raeann Eckert's care: DIAGNOSIS: Gliosarcoma CASE SUMMARY / ASSESSMENT: 59 year old woman who presented with mental status changes in November 2024 and was found to have a right partietal lobe lesion with vasogenic edema. 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 She is currently due to start C5 and was released from [place] to return back to her home in [place]. SUMMARIZED PLAN OF CARE: C9 Temodar to start tomorrow continue with increased dose of Temodar 360mg, D1-5 q 28 days RTC in 4 weeks with labs same day prior to C10 Treat through May 2025. Annual CT Chest to monitor pulmonary nodules - October 2025 AI Assisted A/P: 1. GBM (glioblastoma multiforme) (HCC) (C71.9) 2. Encounter for antineoplastic chemotherapy (Z51.11) MRI from end of November showed favorable post-operative changes. WBC count is within acceptable range for chemotherapy; platelets are trending lower but remain above threshold for treatment delay. Patient is not anemic and chemistries are stable. Patient is currently on cycle 9 of Temodar. - Continue Temodar as planned; refill sent. - Advised that if platelets drop below 90, treatment may be delayed by an extra week. - Discussed that after 12 cycles, management will transition to surveillance with periodic scans. 3. Dry skin (L85.3) Likely related to ongoing chemotherapy. - Recommended Eucerin cream or avocado oil for skin hydration. 4. Allergic rhinitis, unspecified seasonality, unspecified trigger (J30.9) Patient reports headaches and nasal congestion, likely related to allergic rhinitis. - Advised use of antihistamines as needed. - Recommended Afrin nasal spray for up to 2 consecutive days to relieve congestion; cautioned against use beyond 2 days to avoid rebound congestion. CASE HISTORY: Reverse Chronological Order 12/03/2024 - MRI Brain: Essentially stable postoperative appearance of the brain when compared to prior exam from 07/27/2024. No findings to suggest progression. 10/30/2024 - CT Chest: 1. Bilateral subcentimeter pulmonary nodules, as above. Given the patient's history, correlation with follow-up examinations is recommended to assess for stability. few scattered noncalcified pulmonary nodules measuring 3 mm or less are appreciated: For example, on the right, image 47, series 4. On the left, images 23, 47, 88, series 4. 2. No substantial intrathoracic adenopathy is identified. 3. Lower neck, lymph nodes, and mediastinum: 7 mm peripherally calcified left lobe thyroid hypodensity is appreciated. 07/27/2024 - CT Chest wo c: 1. Bilateral subcentimeter pulmonary nodules, as above. Given the patient's history, correlation with follow-up examinations is recommended to assess for stability. 2. No substantial intrathoracic adenopathy is identified. 10/10/2024 - start C6 Temodar- 360 mg on D1-5 q 28days 09/12/2024 - Start C5 Temodar - increase to 360mg on D1-5 q 28 days 08/13/2024-08/17/2024 - C4 D1-5 q 28 Temodar 07/27/2024 - MRI Brain: Postsurgical changes of prior right parietal craniotomy and mass resection. Slight interval increase in surrounding hyperintensity with new mildly irregular enhancement along the medial margin of theresection cavity. Findings may relate to evolving posttreatment change and/or recurrent or progressive disease. Recommend continued attention on follow-up. 07/16/2024-07/20/2024 - C3 Temodar 06/19/2024-06/23/2024 - C2 Temodar 05/30/2024 - MRI Brain: Postsurgical changes of prior right parietal mass resection. No findings suggestive of recurrent orprogressive disease. Mild increase in hyperintensity along the anterior and superior margins of theresection cavity may relate to evolving posttreatment changes. 05/21/2024-05/25/2024 - C1 adjuvant Temodar 320mg 5 days on (23 days off) 04/02/2024 - MRI Brain: Postoperative changes of right parietal GBM resection, without evidence of residual or recurrent tumor. Expected evolution of postoperative changes with significant interval decrease in size of resection cavity and surrounding vasogenic white matter edema in the right parietal lobe. Mild burden of presumed chronic small vessel ischemic white matter disease. 01/12/2024-03/08/2024 - Concurrent Temodar per Dr. Rebecca Oh at [facility] - held 02/23-03/01 due to low platelets 01/12/2024-03/08/2024 - 30 fractions concurrent radiation: per Dr. Alexandr Field at [facility] 01/04/2024 - Repeated sim 12/21/2023 - Scheduled to start radiation but cancelled to reportedly treat locally 12/09/2023 - Completed radiation sim 11/23/2023 - CT Brain & MRI Brain: Post resection of a high-grade glioma from the right parietal region. This study will serve as a baseline for future follow-up. 11/23/2023 - Right Craniotomy - Case #: [id number]: Dr. Raphael Mckee at [facility] A-B. 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 Endothelial proliferation and necrosis are present. Immunohistochemistry performed on Block B2 demonstrate the lesional cells to be POSITIVE for CD10, focal GFAP, focal Olig2, and ATRX (retained, wild-type), while being NEGATIVE for IDH1 (R132H wild-type) and BRAF. P53 is overexpressed. PHH3 highlights mitotic figures up to 30/10 HPF and the Ki-67 proliferation index is up to approximately approximately 40%. Addendum: Negative IDH1 (R132H) immunohistochemistry is considered equivalent to QAE-fplx-zasa status in thisage group, particularly in an ATRX-retained tumor. Additional studies performed: -CD68, CD163, MPO, and lysozyme highlight copious associated histiocytes, but are weak/negative in the neoplastic cells. -Vimentin is diffusely positive confirming antigenicity of the lesional cells. -BRG1 and INI1 are retained. -The remaining markers are negative: SOX10, S100, SMA, pankeratin, inhibin, MOC- 31, CD1a, CK5/6, MART1, p63, SF1, SALL4, GATA3, ERG, desmin, FRANCESCA, CK19, CK20, INSM1, Mono-EP4, PAX8, CAM 5.2, CD30, and CK7. 11/22/2023 - CT CAP: Chest: No evidence of intrathoracic metastatic disease. A/P: Indeterminate bilateral adrenal nodules, which likely represent adenomas. Comparison to previous outside imaging would be of value to determine stability if available. Otherwise, these can be further evaluated with contrast-enhanced MRI or CT adrenal protocol. Otherwise, no metastatic disease in the abdomen or pelvis. Additional findings [in the body of the report]. 11/22/2023 - MRI Brain/Spine: Brain: Heterogeneous solid cystic mass within the right parietal lobe measuring up to 3.5 cm. Differential considerations include a primary WORKFORCE PLANNING ANALYST malignancy such as a high-grade glioma versus metastatic disease. Associated mild mass effect with slight leftward midline shift. Cervical: No acute cervical spine abnormalities. No abnormal enhancement. Mild cervical spondylosiswithout high-grade spinal canal stenosis or neuroforaminal narrowing. Thoracic: No suspicious cord signal abnormality or pathologic enhancement. Thoracic spondylosis without high-grade spinal canal stenosis or neuroforaminal narrowing. Indeterminate small lesion withinthe T10 vertebral body. If there is clinical concern for osseous metastatic disease, this can be further evaluated with a nuclear medicine bone scan as clinically indicated. Lumbar: No acute abnormality of the lumbar spine. No cord signal abnormality or suspicious enhancement. Mild multilevel lumbar spondylosis without high-grade spinal canal stenosis or neuroforaminal narrowing. 11/22/2023 - CXR: No focal consolidation. Nodularities right lung. Recommend comparison to any prior outside imaging. In the absence of priorimaging dedicated CT scan is recommended. 11/22/2023-11/29/2024 - Admitted at [facility] - presented as a direct admission from [facility] for NSGY evaluation for a R parietal lesion with surrounding edema notedon CTH at the [facility] of 12/2023-07/2024 case history copied from Sarah Ward's progress note from 07/27/2024 HPI: Updated Visit, January 04, 2025: PRAVIN Gong is here Patient with a history of brain cancer, currently managed with Temodar, presents for follow-up. In late November, an MRI showed post-operative changes and scar tissue formation. Patient is currently on cycle 9 of Temodar, with plans to complete 12 cycles. Recent lab results show stable white blood cell count and platelets at 113,000/ L. She is not anemic, and chemistries are within normal limits. Patient reports new onset of headaches, which she attributes to sinus issues, and is experiencing significant nasal congestion. She also notes severe dry skin, which she believes may be related to chemotherapy. She denies pruritus. Additionally, she reports memory difficulties. (Today) CBC and Chemistry: - White blood cell count: Within normal limits - Platelets: 113 x10^3/ L - Hemoglobin: Within normal limits - Chemistries: Within normal limits (End of November) MRI Brain: Post-operative changes noted, overall appearing stable. Updated Visit, December 07, 2024: Son Junito is with her - she lives with him. Patient with a history of brain cancer, currently managed with chemotherapy, presents with recent imaging findings and concerns about worsening symptoms. Recent History: Recent CT chest revealed bilateral pulmonary nodules, each measuring 3 mm or less, and a 7 mm peripherally calcified hypodense nodule in the left thyroid. The CT also noted hepatic steatosis. Patientis established with the brain tumor clinic and has regular follow-ups. Patient has not yet started the next cycle of chemotherapy. Recent lab results show normal counts, indicating she is safe to proceed with treatment. She reports difficulties with the pharmacy staff when obtaining medications. Patient experiences worsening spatial awareness and ambulation, with a 30% decline in walking ability since November 06. She reports increased confusion and difficulty communicating after the last chemotherapy session, described as the worst since treatment began. She has not fallen but anticipates the possibility due to these issues. Her son, who is her primary caregiver, expresses concerns about her safety at home and is considering additional support. (No date) CT Chest: 3 mm bilateral pulmonary nodules, 7 mm peripherally calcified lesion in the left thyroid, and hepatic steatosis noted. (No date) Brain imaging: Unremarkable for new or worsening disease. (July) CT Chest: Pulmonary nodules identified. Updated Visit, November 06, 2024: On 05/2024, the patient was diagnosed with glioblastoma. She completed radiation therapy from January to February 2025 and began chemotherapy in May 2025. She is currently on cycle 7 of chemotherapy with Temodar, scheduled to start on November 07. She has been receiving annual lung scans, with the next one planned for October. She has not had recent follow-up MRIs of the brain or connected with the brain tumor team. She reports that the chemotherapy causes significant fatigue, leading her to sleep most of the timeduring treatment. She also experiences nausea if she does not take her stomach medication prior to chemotherapy. She mentions persistent vision issues, which have impacted her ability to drive, and occasional episodes of depression. She is currently taking citalopram 20 mg daily, buspirone, and montelukast. She is also on Keppra, atorvastatin, omeprazole, atenolol, lisinopril, and aspirin. She reports needing refills for atorvastatin, lisinopril, and buspirone. Updated Visit, October 10, 2024: Madina returns for follow up. Did okay with temodar last cycle. Still have fatigue and nausea if she doesn't take antiemetics before the temodar. She is drinking plenty of water and fluids Her eating habits are down. She doesn't have the energy to cook. She no longer lives with her sister who was cooking for her. No fevers, chills, increased headaches. She has had some dizziness off and on lately. Ct chest is scheduled 10/30 to follow up on nodules. Updated Visit, September 11, 2024: Madina returns with Nicho for a follow up. She is due to begin C5 Temodar tomorrow at an increased dose of 360mg - labs indicate she is safe to proceed. Will then follow up in 4 weeks, just prior to C6. She reports fatigue after about 1 hour of walking, vision changes, difficulty balancing, and nightmares. She also has some superficial skin wounds on her arms, most likely due to prior steroid use. Initial Visit, August 28, 2024: Raeann Eckert presents today for a Hematology and Oncology evaluation. She is transitioning her care to [place] after moving back home from [place]. She is joined today by her older sister, Nicho. Raeann is a 58 year old female who is currently on adjuvant single agent Temodar for IDH- wildtype glioblastoma. Will increase dose to 360mg daily D1-5 q 28 days for C5. She endorses current weakness in her left sided extremities and vision changes consistent with a left visual field cut. Advised she follow up with an handle sewer. Will order CT Chest to be completed annually to follow pulmonary nodules. Prior History from Sarah Ward's Progress Note on 07/27/2024: HPI: Tiffany Eckert is a 58 y.o. female with a right parietal glioblastoma (IDH-wildtype) who has a PMHx of HTN and CAD. The patient initially presented on 11/22/2023 with headaches, L sided weakness, and ataxia. She initially felt her left sided weakness was secondary to a left sided shoulder injury. An MRI brain showed a lesion in the R parietal lobe, and she subsequently underwent surgical intervention on 11/23/23 with pathology consistent of a glioblastoma. She completed concurrent chemoradiation on 03/07/24. Subjective: The patient presents to clinic accompanied by a long time friend. She reports that she is unsure ofOptune; we discussed that she can hold off for now and wait until we see changes on her MRI since she is hesitant to start; she is agreeable and preferable to this plan. Dr. Oh discussed that her imaging is currently stable and we will repeat imaging in 2 months. We will see her back in 1 month for clinical follow up. Assessment and Plan: // Right Parietal Glioblastoma/Gliosarcoma - MRI done today is stable - repeat MRI with perfusion in 2 months - recently completed cycle 3 of TMZ - we can alternate her visits with in person and TM // Temodar Use - continue TMZ 150 mg/m2 5 days on, 23 days off. - Take Zofran 8mg 1 hour beforehand. - Take Temodar with 8oz glass of water - assessed adherence, addressed barriers to treatment, and evaluated toxicities - CBC and CMP reviewed. Q2W labs - Continue bowel regimen - Fatigue is expected on treatment // Seizure Prophylaxis - continue Keppra 500mg BID REVIEW OF SYSTEMS Per HPI and otherwise negative by full review of organ systems. Head: (+) headaches Ears/Nose/Mouth/Throat: (+) nasal congestion Skin: (+) dry skin, (-) pruritus Neurological: (+) memory impairment ECOG PERFORMANCE STATUS: 1 PHYSICAL EXAMINATION: Vitals: BP 143/76 Pulse 85 Temp (Src) 97.6 (Temporal) Resp 16 Ht 5' 4.213 (1.63m) Wt 223lb 5.2 oz (101.3kg) SpO2 97% BMI 38.08 kg/(m^2). Body surface area is 2.14 meters squared. Exam limited to gross visualization where appropriate. Gen.: This is an age-appropriate patient in no acute distress. Head: Appears atraumatic with no visible lesions. Eyes: Pupils equally round and reactive to light, extraocular muscles are intact. Neck: Supple. Respiratory: Appears to be respiring comfortably. Neurologic: Nonfocal to gross visualization. Alert and oriented 3. Psychiatric: No evidence of inappropriate anxiety or depression. Skin: Visible areas of skin without rash, lesions, wounds or petechiae. ALLERGIES: ALLERGIES Allergen Reactions Hydrocodone Hives HIVES, itching, red rash all over body. Oxycodone Hives, Rash MEDICATIONS: GINSENG PO Take by mouth. atenolol (TENORMIN) 50 mg tablet Take 1 tablet by mouth once daily. For 30 days lisinopril (ZESTRIL) 5 mg tablet Take 1 tablet by mouth once daily. citalopram (CELEXA) 20 mg tablet Take 1 tablet by mouth once daily busPIRone (BUSPAR) 10 mg tablet Take 1 tablet by mouth two times a day. atorvastatin (LIPITOR) 80 mg tablet Take 1 tablet by mouth once daily. levETIRAcetam (KEPPRA) 500 mg tablet Take 1 tablet by mouth two times a day. Acetaminophen 500 mg cap Take by mouth. fluticasone propionate (FLONASE NASAL) Use in the nose. aspirin, enteric coated (ASPIRIN, ENTERIC COATED) 81 mg EC tablet Take 81 mg by mouth once daily. ezetimibe (ZETIA) 10 mg tablet Take 10 mg by mouth once daily. omeprazole (PRILOSEC) 20 mg capsule Take 20 mg by mouth once daily. ondansetron orally disintegrating (ZOFRAN ODT) 4 mg disintegrating tablet Take 8 mg by mouth every 8 hours as needed. prochlorperazine (COMPAZINE) 10 mg tablet Take 10 mg by mouth every 8 hours as needed. senna-docusate (SENNA-S) 8.6-50 mg per tablet Take 1 tablet by mouth two times a day. temozolomide (TEMODAR) 180 mg capsule Take 2 capsules (360 mg) by mouth once daily for 5 days. LABORATORY VALUES: WBC (k/uL) Date Value 01/04/2025 5.12 RBC (m/uL) Date Value 01/04/2025 3.75 (L) Hemoglobin (g/dL) Date Value 01/04/2025 12.5 Hematocrit (%) Date Value 01/04/2025 35.8 (L) MCV (fL) Date Value 01/04/2025 95.5 MCH (pg) Date Value 01/04/2025 33.3 MCHC (g/dL) Date Value 01/04/2025 34.9 RDW-CV (%) Date Value 01/04/2025 13.5 Platelet Count (k/uL) Date Value 01/04/2025 113 (L) MPV (fL) Date Value 01/04/2025 9.3 Glucose (mg/dL) Date Value 01/04/2025 117 (H) BUN (mg/dL) Date Value 01/04/2025 12 Creatinine (mg/dL) Date Value 01/04/2025 0.73 Sodium (mmol/L) Date Value 01/04/2025 137 Potassium (mmol/L) Date Value 01/04/2025 4.3 Chloride (mmol/L) Date Value 01/04/2025 99 CO2 (mmol/L) Date Value 01/04/2025 28 Protein, Total (g/dL) Date Value 01/04/2025 7.0 Albumin (g/dL) Date Value 01/04/2025 3.9 Calcium, Total (mg/dL) Date Value 01/04/2025 9.2 Alkaline Phosphatase (U/L) Date Value 01/04/2025 146 (H) Bilirubin, Total (mg/dL) Date Value 01/04/2025 0.4 AST (U/L) Date Value 01/04/2025 12 (L) ALT (U/L) Date Value 01/04/2025 14 DIAGNOSIS: (C71.9) GBM (glioblastoma multiforme) (HCC) Plan: temozolomide (TEMODAR) 180 mg capsule, PARKING FOR HANDICAPPED (Z51.11) Encounter for antineoplastic chemotherapy (L85.3) Dry skin (J30.9) Allergic rhinitis, unspecified seasonality, unspecified trigger PAST MEDICAL HISTORY Diagnosis Date Glioblastoma (HCC) Hypertension Lung nodules PAST SURGICAL HISTORY Procedure Laterality Date LIGATE FALLOPIAN TUBE PAST SURGICAL HISTORY OF Rt Craniotomy for tumor resection with navigation and neuromonitoring PT ED HEART AND VASCULAR x2 Social History Tobacco Use Smoking status: Former Types: Cigarettes Smokeless tobacco: Never Vaping Use Vaping status: current everyday user Substances: Nicotine, Flavoring Devices: Disposable Substance Use Topics Alcohol use: Not Currently Drug use: Never FAMILY HISTORY Problem Relation Age of Onset Liver Cancer Mother Hypertension Mother Prostate Cancer Father Skin Cancer Father No Known Problems Sister Hypertension Brother Skin Cancer Brother Heart disease Brother Liver Disease Maternal Grandmother Diabetes Maternal Grandfather Heart disease Maternal Grandfather Diabetes Paternal Grandfather I spent a total of 20 minutes on the date of service which included preparing to see the patient, [id number] patient care, completing clinical documentation, obtaining and/or reviewing separately obtained history, performing a medically appropriate examination, counseling and educating the patient/family/caregiver, ordering medications, tests, or procedures, communicating with other HCPs (not separately reported), independently interpreting results (not separately reported), communicating results to the patient/family/caregiver, and care coordination (not separately reported). Keith Dorsey MD, CPE Hematology and Oncology Services Provided at: [place], [place] CC: SELF documented in this encounterAdena [facility]08-29-2025 NoteHNO ID: [id number] Author: KEITH DORSEY MD Service: ? Author Type: Physician Type: Progress Notes Filed: 01/06/2025 18:47 Note Text: NAME: Raeann Eckert CLINIC NO.: [id number] DATE OF SERVICE: January 04, 2025 (Jana) Some elements in this clinic note that are critical to medical decision making have been carefully reviewed and included from a prior clinic note dated: December 07, 2024 (Jana) Referring Provider: Self Referred Additional Clinicians involved in Raeann Eckert's care: DIAGNOSIS: Gliosarcoma CASE SUMMARY / ASSESSMENT: 59 year old woman who presented with mental status changes in November 2024 and was found to have a right partietal lobe lesion with vasogenic edema. 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 She is currently due to start C5 and was released from [place] to return back to her home in [place]. SUMMARIZED PLAN OF CARE: C9 Temodar to start tomorrow continue with increased dose of Temodar 360mg, D1-5 q 28 days RTC in 4 weeks with labs same day prior to C10 Treat through May 2025. Annual CT Chest to monitor pulmonary nodules - October 2025 AI Assisted A/P: 1. GBM (glioblastoma multiforme) (HCC) (C71.9) 2. Encounter for antineoplastic chemotherapy (Z51.11) MRI from end of November showed favorable post-operative changes. WBC count is within acceptable range for chemotherapy; platelets are trending lower but remain above threshold for treatment delay. Patient is not anemic and chemistries are stable. Patient is currently on cycle 9 of Temodar. - Continue Temodar as planned; refill sent. - Advised that if platelets drop below 90, treatment may be delayed by an extra week. - Discussed that after 12 cycles, management will transition to surveillance with periodic scans. 3. Dry skin (L85.3) Likely related to ongoing chemotherapy. - Recommended Eucerin cream or avocado oil for skin hydration. 4. Allergic rhinitis, unspecified seasonality, unspecified trigger (J30.9) Patient reports headaches and nasal congestion, likely related to allergic rhinitis. - Advised use of antihistamines as needed. - Recommended Afrin nasal spray for up to 2 consecutive days to relieve congestion; cautioned against use beyond 2 days to avoid rebound congestion. CASE HISTORY: Reverse Chronological Order 12/03/2024 - MRI Brain: Essentially stable postoperative appearance of the brain when compared to prior exam from 07/27/2024. No findings to suggest progression. 10/30/2024 - CT Chest: 1. Bilateral subcentimeter pulmonary nodules, as above. Given the patient's history, correlation with follow-up examinations is recommended to assess for stability. few scattered noncalcified pulmonary nodules measuring 3 mm or less are appreciated: For example, on the right, image 47, series 4. On the left, images 23, 47, 88, series 4. 2. No substantial intrathoracic adenopathy is identified. 3. Lower neck, lymph nodes, and mediastinum: 7 mm peripherally calcified left lobe thyroid hypodensity is appreciated. 07/27/2024 - CT Chest wo c: 1. Bilateral subcentimeter pulmonary nodules, as above. Given the patient's history, correlation with follow-up examinations is recommended to assess for stability. 2. No substantial intrathoracic adenopathy is identified. 10/10/2024 - start C6 Temodar- 360 mg on D1-5 q 28days 09/12/2024 - Start C5 Temodar - increase to 360mg on D1-5 q 28 days 08/13/2024-08/17/2024 - C4 D1-5 q 28 Temodar 07/27/2024 - MRI Brain: Postsurgical changes of prior right parietal craniotomy and mass resection. Slight interval increase in surrounding hyperintensity with new mildly irregular enhancement along the medial margin of the resection cavity. Findings may relate to evolving posttreatment change and/or recurrent or progressive disease. Recommend continued attention on follow-up. 07/16/2024-07/20/2024 - C3 Temodar 06/19/2024-06/23/2024 - C2 Temodar 05/30/2024 - MRI Brain: Postsurgical changes of prior right parietal mass resection. No findings suggestive of recurrent or progressive disease. Mild increase in hyperintensity along the anterior and superior margins of the resection cavity may relate to evolving posttreatment changes. 05/21/2024-05/25/2024 - C1 adjuvant Temodar 320mg 5 days on (23 days off) 04/02/2024 - MRI Brain: Postoperative changes of right parietal GBM resection, without evidence of residual or recurrent tumor. Expected evolution of postoperative changes with significan (more content not included)...[facility]08-01-2025 Telephone encounter Note* Telephone Encounter - Emma Slater LSW - 12/07/2024 3:08 PM EDT SOCIAL WORK FOLLOW UP NOTE: [facility] Date of service:12/07/24 PLAN: Continue follow up as needed F/U APPOINTMENT: PRN Assigned AYAKA listed in Care Team tab: Yes Referral received to contact Patient's son Zain to discuss retirement care needs. SW called and left Zain EDDY. Awaiting a call back. KWAME Navarro-Love [facility]08-01-2025 Miscellaneous Notes* Telephone Encounter - Emma Slater LSW - 12/07/2024 3:08 PM EDT SOCIAL WORK FOLLOW UP NOTE: [facility] Date of service:12/07/24 PLAN: Continue follow up as needed F/U APPOINTMENT: PRN Assigned AYAKA listed in Care Team tab: Yes Referral received to contact Patient's son Zain to discuss terminal operations supervisor care needs. AYAKA called and left Zain EDDY. Awaiting a call back. MARCELINO Navarro documented in this encounterAdena [facility] Center08-01-2025 NoteHNO ID: [id number] Author: KEITH DORSEY MD Service: ? Author Type: Physician Type: Progress Notes Filed: 12/11/2024 16:43 Note Text: NAME: Raeann Eckert CLINIC NO.: [id number] DATE OF SERVICE: December 07, 2024 (Jana) Some elements in this clinic note that are critical to medical decision making have been carefully reviewed and included from a prior clinic note dated: November 06, 2024 (Jana) Referring Provider: Self Referred Additional Clinicians involved in Raeann Eckert's care: DIAGNOSIS: Gliosarcoma CASE SUMMARY / ASSESSMENT: 59 year old woman who presented with mental status changes in November 2024 and was found to have a right partietal lobe lesion with vasogenic edema. 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 She is currently due to start C5 and was released from [place] to return back to her home in [place]. SUMMARIZED PLAN OF CARE: C8 Temodar to start tomorrow continue with increased dose of Temodar 360mg, D1-5 q 28 days RTC in 4 weeks with labs same day prior to C9 Treat through May 2025. Annual CT Chest to monitor pulmonary nodules - October 2025 AI Assisted A/P: 1. GBM (glioblastoma multiforme) (HCC) (C71.9) Patient is under the care of Dr. Acosta at the brain tumor clinic. Recent CT scan of the brain showed no new or worsening disease. Patient reports increased confusion and spatial disorientation, which may be related to tumor location and scarring as discussed by Dr. Acosta. - Continue monitoring with MRI every 2 months; next MRI scheduled for February 10. - Follow-up with Dr. Acosta on February 12. 2. Hepatic steatosis (K76.0) Incidental finding on recent CT scan of the chest and upper abdomen. No other concerning findings noted. - Educated patient on the importance of weight and dietary management to prevent progression to cirrhosis and liver failure. 3. Presence of other specified functional implants (Z96.89) 4. Encounter for antineoplastic chemotherapy (Z51.11) Patient is undergoing chemotherapy with Temodar. Recent blood counts are within normal limits, indicating safety to proceed with the next cycle. - Begin Temodar treatment tomorrow for 5 days. - Scheduled for next chemotherapy cycle (Cycle 9) in 4 weeks. 5. Encounter for palliative care (Z51.5) Patient experiencing increased confusion and spatial disorientation, leading to safety concerns at home. Discussed potential need for additional support. - Discussed options for hiring a private nurse or asset protection professional. - Referred to a social worker delinquency prevention for assistance in coordinating additional support services. CASE HISTORY: Reverse Chronological Order 12/03/2024 - MRI Brain: Essentially stable postoperative appearance of the brain when compared to prior exam from 07/27/2024. No findings to suggest progression. 10/30/2024 - CT Chest: 1. Bilateral subcentimeter pulmonary nodules, as above. Given the patient's history, correlation with follow-up examinations is recommended to assess for stability. few scattered noncalcified pulmonary nodules measuring 3 mm or less are appreciated: For example, on the right, image 47, series 4. On the left, images 23, 47, 88, series 4. 2. No substantial intrathoracic adenopathy is identified. 3. Lower neck, lymph nodes, and mediastinum: 7 mm peripherally calcified left lobe thyroid hypodensity is appreciated. 07/27/2024 - CT Chest wo c: 1. Bilateral subcentimeter pulmonary nodules, as above. Given the patient's history, correlation with follow-up examinations is recommended to assess for stability. 2. No substantial intrathoracic adenopathy is identified. 10/10/2024 - start C6 Temodar- 360 mg on D1-5 q 28days 09/12/2024 - Start C5 Temodar - increase to 360mg on D1-5 q 28 days 08/13/2024-08/17/2024 - C4 D1-5 q 28 Temodar 07/27/2024 - MRI Brain: Postsurgical changes of prior right parietal craniotomy and mass resection. Slight interval increase in surrounding hyperintensity with new mildly irregular enhancement along the medial margin of the resection cavity. Findings may relate to evolving posttreatment change and/or recurrent or progressive disease. Recommend continued attention on follow-up. 07/16/2024-07/20/2024 - C3 Temodar 06/19/2024-06/23/2024 - C2 Temodar 05/30/2024 - MRI Brain: Postsurgical changes of prior right parietal mass resection. No findings suggestive of recurrent or progressive disease. Mild increase in hyperintensity along the anterior and superior margins of t (more content not included)... [facility]07-31-2025 Telephone encounter Note* Telephone Encounter - Sean Loving - 12/06/2024 4:46 PM EDT Done [facility]07-31-2025 Miscellaneous Notes* Telephone Encounter - Sean Loving - 12/06/2024 4:46 PM EDT Done * Telephone Encounter - Cydney Rodgers RN - 12/06/2024 3:00 PM EDT Scheduling Request - Established Patient Time Frame: 8-9 weeks Orders: MRI brain Provider: Jelena Visit type: In person Diagnosis: GBM documented in this encounterAdena [facility]07-31-2025 Telephone encounter Note * Telephone Encounter - Cydney Rodgers RN - 12/06/2024 3:00 PM EDT Scheduling Request - Established Patient Time Frame: 8-9 weeks Orders: MRI brain Provider: Jelena Visit type: In person Diagnosis: GBM [facility]07-31-2025 Telephone encounter Note* Telephone Encounter - Cydney Rodgers RN - 12/06/2024 2:36 PM EDT ERROR [facility]07-31-2025 Miscellaneous Notes* Telephone Encounter - Cydney Rodgers RN - 12/06/2024 2:36 PM EDT ERROR documented in this encounterAdena [facility] Center07-29-2025 NoteHNO ID: [id number] Author: TRACIE MCCLAIN MD Service: ? Author Type: Physician Type: Progress Notes Filed: 12/13/2024 20:01 Note Text: [facility] The patient is eferred by Dr. Keith Dorsey for neuro-oncologic evaluation. Final recommendations will be communicated back to the requesting physician by way of the shared medical records, or letters to requesting physician via US Mail. Diagnosis Gbm (glioblastoma multiforme) (hcc) Subjective Chief Concern: R Parietal Glioblastoma, IDH Wild-Type, MGMT Hypermethylated, WORKFORCE PLANNING ANALYST WHO Grade 4 History of Present Illness: Raeann Eckert is a right handed 59 year old woman who presents to Neuro-Oncology Clinic for new patient evaluation of right parietal glioblastoma. She presented with mental status changes in November 2023 and was found to have a right parietal lobe lesion with vasogenic edema. Late November 2024, she underwent craniotomy at [facility]. Her history is as follows: 11/22/2023-11/29/2024 - Admitted at [facility] - presented as a direct admission from [facility] for NSGY evaluation for a R parietal lesion with surrounding edema noted on CTH at the OSH 11/22/2023 - MRI Brain/Spine: Brain: Heterogeneous solid cystic mass within the right parietal lobe measuring up to 3.5 cm. Differential considerations include a primary WORKFORCE PLANNING ANALYST malignancy such as a high-grade glioma versus metastatic disease. Associated mild mass effect with slight leftward midline shift. 11/23/2023 - Right Craniotomy - Case #: [id number]: Dr. Raphael Mckee at [facility] A-B. 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 Endothelial proliferation and necrosis are present. Immunohistochemistry performed on Block B2 demonstrate the lesional cells to be POSITIVE for CD10, focal GFAP, focal Olig2, and ATRX (retained, wild-type), while being NEGATIVE for IDH1 (R132H wild-type) and BRAF. P53 is overexpressed. PHH3 highlights mitotic figures up to 30/10 HPF and the Ki-67 proliferation index is up to approximately approximately 40%. Addendum: Negative IDH1 (R132H) immunohistochemistry is considered equivalent to [id number] status in this age group, particularly in an ATRX-retained tumor. Additional studies performed: -CD68, CD163, MPO, and lysozyme highlight copious associated histiocytes, but are weak/negative in the neoplastic cells. -Vimentin is diffusely positive confirming antigenicity of the lesional cells. -BRG1 and INI1 are retained. -The remaining markers are negative: SOX10, S100, SMA, pankeratin, inhibin, MOC-31, CD1a, CK5/6, MART1, p63, SF1, SALL4, GATA3, ERG, desmin, FRANCESCA, CK19, CK20, INSM1, Mono-EP4, PAX8, CAM 5.2, CD30, and CK7. 01/12/2024-03/08/2024 - 30 fractions concurrent radiation: per Dr. Alexandr Field at [facility] 01/12/2024-03/08/2024 - Concurrent Temodar per Dr. Rebecca Oh at [facility] - held 02/23-03/01 due to low platelets 05/21/2024-05/25/2024 - C1 adjuvant Temodar 320mg 5 days on (23 days off) Today, Mrs. Eckert presents with her son. After moving from [place] she establishes her care in [place]. She expressed the dseire to receive oncologic care from Dr. Keith Dorsey and also follow up at [facility]. Mrs. Eckert reports persistent fatigue, balance issues, continuous headaches rated 5/10, and occasional speech stumbling. Headaches improve when lying down and she does not take any pain medication for it. She experiences difficulty with daily activities due to fatigue and balance problems, requiring frequent rest after minimal exertion. She recalls a seizure episode coinciding with the initial diagnosis, leading to a prescription of Keppra 500 mg BID, however she takes Keppra once a day, which she tolerates well. She denies any further seizures since starting Keppra. Mrs Eckert experiences nausea and vomiting with temozolomide, managed with Zofran. She reports occasional constipation, managed with Colace. She and her son note increased confusion and speech difficulties following the last temozolomide cycle in November, more pronounced thanprevious cycles. Additionally, her son reports increased confusion and behavioral changes after the 7th cycle of TMZ, described by her son as flying off the handle. . It was mentioned that during this episode it was not possible to have a normal conversation with her, she got very anxious and angry very quickly. After almost five days after the cycle is complete she is back to her baseline. She has three sons and is currently not working. *Some of the above information per chart review is adapted from D (more content not included)...[facility]07-29-2025 NoteHNO ID: [id number] Author: EDGARD SCHAFFER LPN Service: ? Author Type: LICENSED NURSE Type: Progress Notes Filed: 12/13/2024 20:01 Note Text: Additional intake questions: Has the patient had fever, nausea, vomiting, diarrhea, constipation, fatigue for > 1 week? No Does the patient have a decreased appetite? Yes Does patient want to see a Armhole Presser? No (yes to any of above refer patient to schedulers for dietitian appointment) ) Does patient have any new or increased numbness or tingling of extremities? No Is patient interested in fertility information? NA Does patient need any prescription refills? No Does patient have an advanced directive in place? Yes, copies are in Epic Electronically Signed By: [facility] History of Present illness Narrative* Cydney Martinez RT(R) - 12/03/2024 1:20 PM EDT Radiology Service Progress Note PATIENT NAME: Raeann Eckert DATE OF SERVICE: December 03, 2024 TIME: 2:00 PM PATIENT IDENTITY VERIFICATION COMPLETED USING TWO (2) IDENTIFIERS: Name and Date of confirmedby patient verbally. FALL SCREENING: Has the patient had 2 falls in the last year or 1 fall with injury or currently using an Ambulatory Assistive Device (Walker, Cane, Wheelchair, Crutches, etc.)? No PATIENT GENDER DATA: Assigned female at . status: : No status:NO. PATIENT RELEVANT IMPLANT DATA REVIEWED: Yes PATIENT PRESENTS WITH AN IMPLANTABLE OR ATTACHED AUDITOR MEDICAL CLAIMS: No RADIOLOGY DEPARTMENT: MR; Exam(s) Completed: Head: Routine Brain. Aromatherapy Administered: No PERIPHERAL IV DATA: Site assessment: Clean,Dry and Intact, Site disposition Discontinued SIGNED BY: CL Villalpando) December 03, 2024 2:00 PM documented in this encounterAdena [facility] Center07-28-2025 NoteHNO ID: [id number] Author: CYDNEY MARTINEZ RT(R) Service: ? Author Type: Technologist Type: Progress Notes Filed: 12/03/2024 14:01 Note Text: Radiology Service Progress Note PATIENT NAME: Raeann Eckert DATE OF SERVICE: December 03, 2024 TIME: 2:00 PM PATIENT IDENTITY VERIFICATION COMPLETED USING TWO (2) IDENTIFIERS: Name and Date of confirmed by patient verbally. FALL SCREENING: Has the patient had 2 falls in the last year or 1 fall with injury or currently using an Ambulatory Assistive Device (Walker, Cane, Wheelchair, Crutches, etc.)? No PATIENT GENDER DATA: Assigned female at . status: : No status: NO. PATIENT RELEVANT IMPLANT DATA REVIEWED: Yes PATIENT PRESENTS WITH AN IMPLANTABLE OR ATTACHED AUDITOR MEDICAL CLAIMS: No RADIOLOGY DEPARTMENT: MR; Exam(s) Completed: Head: Routine Brain. Aromatherapy Administered: No PERIPHERAL IV DATA: Site assessment: Clean,Dry and Intact, Site disposition Discontinued SIGNED BY: RT Irasema(R) December 03, 2024 2:00 [facility]07-28-2025 NoteHNO ID: [id number] Author: SUKI COLEMAN RN Service: Nursing Author Type: Registered Nurse Type: Progress Notes Filed: 01/24/2025 13:41 Note Text: Radiology Service Progress Note DATE OF SERVICE: December 03, 2024 TIME: 1:10 PM PATIENT WEIGHT: 223 LBS PATIENT IDENTITY VERIFICATION COMPLETED USING TWO (2) STANDARD IDENTIFIERS: Name and Date of confirmed by patient verbally. FALL SCREENING: Has the patient had 2 falls in the last year or 1 fall with injury or currently using an Ambulatory Assistive Device (Walker, Cane, Wheelchair, Crutches, etc.)? No PATIENT GENDER DATA: Assigned female at . status: : No status: NO. ALLERGIES: Reviewed and unchanged CONTRAST ALLERGY: No EXAM: MRI - CONTRAST TYPE: GROUP II IV SITE: Ambulatory: A peripheral IV was started in the Right antecubital site with a Angio cath: 22 gauge. and A Saline lock was inserted per protocol IV SITE APPEARANCE: Clean,Dry and Intact SIGNATURE: Suki Coleman RN PATIENT NAME: Raeann Eckert DATE: December 03, 2024 TIME: 1:10 [facility]07-07-2025 Telephone encounter Note* Telephone Encounter - Simone Mitchell RN - 11/12/2024 11:55 AM EDT Pt notified of recommendations and verbalizes understanding. Pt states she reported incorrectly during our initial conversation. States she started her current cycle of Temodar on 11/08. Has one dose remaining which she will take tonight. Simone Mitchell RN [facility] Work Phone: 1(628) 885-962907-07-2025 Miscellaneous Notes* Telephone Encounter - Simone Mitchell RN - 11/12/2024 11:55 AM EDT Pt notified of recommendations and verbalizes understanding. Pt states she reported incorrectly during our initial conversation. States she started her current cycle of Temodar on 11/08. Has one dose remaining which she will take tonight. Simone Mitchell RN * Telephone Encounter - Toña Franklin PA-C - 11/12/2024 11:48 AM EDT I would not use cortisone on the face. It is okay to use on the chest. Use benadryl 25mg PO q6 hours for itching. Will give a trial of Prednisone 40 mg x 4 days. Avoid the sun please. She is not currently taking temodar, correct? She should have finished this cycle yesterday? Call if rash worsens. Tñoa Franklin PA-C * Telephone Encounter - Simone Mitchell RN - 11/12/2024 9:58 AM EDT Pt c/o rash to face and chest. Describes the rash on her face as flat red bumps. Describes the susi her chest as raised and pimple-like. Notes itching to face and chest. Has been applying cortisone cream to face which seems to help the itch. Rash began over the weekend. Notes she had been out inthe sun for about 1 hour the day before it appeared. Pt is on day 3 of her current Temodar cycle. Pt 's My Chart is not currently active so she is unable to send pics at this time. Link to activate sent to pt via text message. CRISTIANO: Please advise on the above. Thanks! Simone Mitchell RN [facility] Telephone encounter Note * Telephone Encounter - Toña Franklin PA-C - 11/12/2024 11:48 AM EDT I would not use cortisone on the face. It is okay to use on the chest. Use benadryl 25mg PO q6 hours for itching. Will give a trial of Prednisone 40 mg x 4 days. Avoid the sun please. She is not currently taking temodar, correct? She should have finished this cycle yesterday? Call if rash worsens. Toña Franklin PA-C [facility]07-07-2025 Telephone encounter Note* Telephone Encounter - Simone Mitchell RN - 11/12/2024 9:58 AM EDT Pt c/o rash to face and chest. Describes the rash on her face as flat red bumps. Describes the susi her chest as raised and pimple-like. Notes itching to face and chest. Has been applying cortisone cream to face which seems to help the itch. Rash began over the weekend. Notes she had been out inthe sun for about 1 hour the day before it appeared. Pt is on day 3 of her current Temodar cycle. Pt 's My Chart is not currently active so she is unable to send pics at this time. Link to activate sent to pt via text message. CRISTIANO: Please advise on the above. Thanks! Simone Mitchell, RN [facility]07-03-2025 Telephone encounter Note* Telephone Encounter - Emma Slater LSW - 11/08/2024 10:10 AM EDT SOCIAL WORK FOLLOW UP NOTE: [facility] Date of service:11/08/24 Raeann Richardsonutcheon is being seen for a follow up social work visit. Today's visit includes: patient TOPICS ADDRESSED: Medicaid PLAN: Continue follow up as needed Assigned SW listed in Care Team tab: Yes SW called Patient to follow up on her questions about Medicaid. Patient states that she has not yetre-applied for Medicaid. Patient says that maybe tonight she and her sister will complete the application online. SW asked if the Patient had any Medicaid related questions and she states that she does not at this time. SW received a call from Mariaa at the [facility] stating that she has received a few prescription charges from [facility] and will pay them the next billing cycle on 11/23. Patient has $12.56left from the $500 cancer care fund. MARCELINO Navarro [facility]07-03-2025 Miscellaneous Notes* Telephone Encounter - Emma Slater LSW - 11/08/2024 10:10 AM EDT SOCIAL WORK FOLLOW UP NOTE: CANCER CENTER Date of service:11/08/24 Raeann Eckert is being seen for a follow up social work visit. Today's visit includes: patient TOPICS ADDRESSED: Medicaid PLAN: Continue follow up as needed Assigned SW listed in Care Team tab: Yes SW called Patient to follow up on her questions about Medicaid. Patient states that she has not yetre-applied for Medicaid. Patient says that maybe nimisha she and her sister will complete the application online. SW asked if the Patient had any Medicaid related questions and she states that she does not at this time. SW received a call from Mariaa at the [facility] stating that she has received a few prescription charges from [facility] and will pay them the next billing cycle on 11/23. Patient has $12.56left from the $500 cancer care fund. MARCELINO Navarro documented in this encounterAdena [facility]07-02-2025 Telephone encounter Note * Telephone Encounter - Dakota Ríos RN - 11/07/2024 11:29 AM EDT Call received from pt stating she has questions regarding her upcoming appointments. All appointment dates/times/locations reviewed with pt and she denies any other questions regarding appointments. Pt states she does have questions regarding the medicaid that she was told to fill out. Will requestLori to reach out to pt. Message sent to her on teams as well as this telephone encounter. Dakota Ríos RN [facility] Work Phone: 1(242) 771-720007-02-2025 Miscellaneous Notes* Telephone Encounter - Dakota Ríos RN - 11/07/2024 11:29 AM EDT Call received from pt stating she has questions regarding her upcoming appointments. All appointment dates/times/locations reviewed with pt and she denies any other questions regarding appointments. Pt states she does have questions regarding the medicaid that she was told to fill out. Will requestLori to reach out to pt. Message sent to her on teams as well as this telephone encounter. Dakota Ríos RN documented in this encounterAden[facility]07-02-2025 Telephone encounter Note * Telephone Encounter - Kailey Garcia - 11/07/2024 10:37 AM EDT Images from the original note were not included. Request Summary [[id number]] Specialty: HEMATOLOGY/ONCOLOGY Status: Needs Scheduling Requested appt date: 12/05/2024 (Approximate) Created by: Keith Dorsey MD (Follow-up) Responsible dept: [facility] Scheduling Instructions 1. Labs today - Lizeth Castanon. - please call results and clear for starting C7 3. RTC in 4 weeks with labs same day prior to C8 4. Referral to brain tumor clinic for follow up 5. MRI Brain wo/w contrast - [facility] please 1. Archaeology Professor: Who is requesting this appointment?patient 2. Archaeology Professor: Please indicate the best contact information for our team to reach you with any questions/concerns we may have? cell 3. Archaeology Professor: What is your diagnosis? GBM 4. Archaeology Professor: Have you ever been seen at our center before? No 5. Archaeology Professor: Is there a specific doctor you were referred to? No 6. Archaeology Professor: What facility and/or hospital have you been seen at? [facility] Name of facility/name of provider where patient was treated. Keith Dorsey MD 7. Archaeology Professor: For this appointment, we will need to request a few records from you. This will help our triage team be able to select the best provider for your treatment. a. Please provide: Most recent MRI- spine/Brain (Archaeology Professor will check CareEverywhere for records). 8. Archaeology Professor: Where was your last imaging completed:[facility] July 2024(Ideally should be completed within the last six months). 9. Archaeology Professor: Have you had any surgeries pertaining to this appointment? Yes If yes, please obtain pathology report. 10. Archaeology Professor: Please allow up to 48-72 hours for our triage team to review your records. Once theyreviewed your records, we will be in contact with you. a. Was the patient made aware of the turnaround time? Yes 11. Archaeology Professor: Our department offers virtual visits depending on the provider you are recommended to see and the state that you live in. If able to schedule, would you like a virtual visit?No a. If answered yes: Does the patient have MyChart access: No If not, then visitor services assistant will walk patient through getting access to [facility] [employer]. b. If no, Are you interested in 2nd Opinion Consult (If not, please indicate patient refused to schedule at this time and the reason to not proceed with scheduling). 12. Sent to triage pool. (Waiting approval). [facility]07-02-2025 Miscellaneous Notes* Telephone Encounter - Kailey Garcia - 11/07/2024 10:37 AM EDT Images from the original note were not included. Request Summary [[id number]] Specialty: HEMATOLOGY/ONCOLOGY Status: Needs Scheduling Requested appt date: 12/05/2024 (Approximate) Created by: Keith Dorsey MD (Follow-up) Responsible dept: [facility] Scheduling Instructions 1. Labs today - Lizeth Juarez - please call results and clear for starting C7 3. RTC in 4 weeks with labs same day prior to C8 4. Referral to brain tumor clinic for follow up 5. MRI Brain wo/w contrast - [facility] please 1. Archaeology Professor: Who is requesting this appointment?patient 2. Archaeology Professor: Please indicate the best contact information for our team to reach you with any questions/concerns we may have? cell 3. Archaeology Professor: What is your diagnosis? GBM 4. Archaeology Professor: Have you ever been seen at our center before? No 5. Archaeology Professor: Is there a specific doctor you were referred to? No 6. Archaeology Professor: What facility and/or hospital have you been seen at? [facility] Name of facility/name of provider where patient was treated. Keith Dorsey MD 7. Archaeology Professor: For this appointment, we will need to request a few records from you. This will help our triage team be able to select the best provider for your treatment. a. Please provide: Most recent MRI- spine/Brain (Archaeology Professor will check CareEverywhere for records). 8. Archaeology Professor: Where was your last imaging completed:[facility] July 2024(Ideally should be completed within the last six months). 9. Archaeology Professor: Have you had any surgeries pertaining to this appointment? Yes If yes, please obtain pathology report. 10. Archaeology Professor: Please allow up to 48-72 hours for our triage team to review your records. Once theyreviewed your records, we will be in contact with you. a. Was the patient made aware of the turnaround time? Yes 11. Archaeology Professor: Our department offers virtual visits depending on the provider you are recommended to see and the state that you live in. If able to schedule, would you like a virtual visit?No a. If answered yes: Does the patient have MyChart access: No If not, then visitor services assistant will walk patient through getting access to MyChart. b. If no, Are you interested in 2nd Opinion Consult (If not, please indicate patient refused to schedule at this time and the reason to not proceed with scheduling). 12. Sent to triage pool. (Waiting approval). documented in this encounterAdena [facility] Center07-02-2025 Telephone encounter Note * Telephone Encounter - Kailey Garcia - 11/07/2024 10:31 AM EDT This encounter opened in Error. [facility]07-02-2025 Miscellaneous Notes* Telephone Encounter - Kailey Garcia - 11/07/2024 10:31 AM EDT This encounter opened in Error. documented in this encounterAdena [facility] Medical Center07-02-2025 NoteHNO ID: [id number] Author: EMMA SLATER LSW Service: ? Author Type: Carport Erector Type: Progress Notes Filed: 11/07/2024 11:39 Note Text: AYAKA completed a [employer] Repository Form and forwarded a copy to AYAKA Mayberry Patient Accounting Representative. Message received from [facility] that the Patient had Medicaid questions. SW called Patient and left a VM requesting a call back. KWAME Navarro-[facility]07-02-2025 History of Present illness Narrative* Emma Slater LSW - 11/07/2024 9:39 AM EDT AYAKA completed a [employer] Form and forwarded a copy to AYAKA Mayberry Patient Accounting Representative. Message received from [facility] that the Patient had Medicaid questions. AYAKA called Patient and left a VMrequesting a call back. MARCELINO Navarro documented in this encounterAdena [facility] Medical Center07-01-2025 NoteHNO ID: [id number] Author: EMMA SLATER LSW Service: ? Author Type: Carport Erector Type: Progress Notes Filed: 11/06/2024 14:15 Note Text: Social Work Problem Referral Note INFORMATION/REFERRAL : Raeann Eckert 58 year old female was referred by Arlene Montoya to [facility] Social Work for the following reason(s): community services/resources and financial assistance - meals, parking, etc. PERSONS INTERVIEWED: patient INTERVENTION: Information AND Referral Service Co-ordination Affect/Mood: The patient is noted as appropriate IDENTIFIED PROBLEMS/NEEDS: No medical insurance Financial Intervention/Referral to be provided:No further intervention required IMPRESSION/PLAN:SW received a message that 5 prescriptions were sent to [facility] and the Patient does not have insurance. Patient was supposed to re-apply for Medicaid and did not. Patient used part of the [employer] Cancer Care Fund last month to cover her prescription for Temodar. SW called Mariaa and the [employer] and learned that the Patient has $60 remaining from the $500 cancer care fund. [employer] drug repository program is being looked into to help refill the Temodar prescription. [employer] will invoice the [facility] for the remaining available $60. Patient will likely have to pay OOP for one prescription. SW called Patient regarding re-applying for Medicaid. Patient states that her sister will help her re-apply online tomorrow. Patient states that she has a vision impairment. SW shared with Patient that she may be responsible for the cost of one prescription and explained the above. Patient is agreeable and plans to come in tomorrow morning to order picker/assembler her prescriptions. Assigned SW listed in Care Team tab: Yes KWAME Navarro-[facility]07-01-2025 History of Present illness Narrative* Emma Slater LSW - 11/06/2024 1:53 PM EDT Social Work Problem Referral Note INFORMATION/REFERRAL : Raeann Eckert 58 year old female was referred by Arlene Montoya to [facility] Social Work for the following reason(s): community services/resources and financial assistance - meals, parking, etc. PERSONS INTERVIEWED: patient INTERVENTION: Information & Referral Service Co-ordination Affect/Mood: The patient is noted as appropriate IDENTIFIED PROBLEMS/NEEDS: No medical insurance Financial Intervention/Referral to be provided:No further intervention required IMPRESSION/PLAN:SW received a message that 5 prescriptions were sent to [facility] and thePatient does not have insurance. Patient was supposed to re-apply for Medicaid and did not. Patient used part of the [employer] Cancer Care Fund last month to cover her prescription for Temodar. AYAKA called Mariaa and [facility] [employer] and learned that the Patient has $60 remaining from the $500 cancer care fund. [employer] drug repository program is being looked into to help refill the Temodar prescription. [facility] will invoice [facility] for the remaining available $60. Patient will likely have to pay OOP for one prescription. SW called Patient regarding re-applying for Medicaid. Patient states that her sister will help her re-apply online tomorrow. Patient states that she has a vision impairment. SW shared with Patient that she may be responsible for the cost of one prescription and explained the above. Patient is agreeable and plans to come in tomorrow morning to order picker/assembler her prescriptions. Assigned SW listed in Care Team tab: Yes KWAME Navarro-Love documented in this encounterAdena [facility] Center07-01-2025 Instructions* Patient Instructions* Keith Dorsey MD - 11/06/2024 9:25 AM EDT Labs today - Lizeth Castanon. - please call results and clear for starting C7 C7 Temodar to start TuesdayNovember 07 continue with increased dose of Temodar 360mg, D1-5 q 28 days RTC in 4 weeks with labs same day prior to C8 Treat through May 2025. Referral to brain tumor clinic for follow up MRI Brain wo/w contrast - [facility] please We discussed your glioblastoma: - You will start cycle 7 of chemotherapy with Temodar (360 mg) on Tuesday, November 07. Take this medication on days 1 through 5 (Tuesday through Tuesday). Continue taking your stomach medication prior to Temodar to prevent nausea. - Your treatment plan is to continue chemotherapy through May 2025. - I will refer you to the [facility] brain tumor team for follow-up care. They will assist with monitoring and interpreting your MRIs and provide additional expertise. This team is located in [facility]. - We will schedule an MRI of the brain with and without contrast at a [facility] facility. The brain tumor team will likely coordinate your scan and follow-up visit on the same day. - To prepare for the MRI with contrast, drink plenty of fluids the day before to help with IV placement. We discussed your medications: - Refills have been sent for the following medications: - Keppra (levetiracetam) - Omeprazole - Lisinopril - Atorvastatin (Lipitor) - Atenolol - Aspirin - Buspirone (BuSpar) for anxiety - Citalopram (Celexa) 20 mg once daily for depression - Your chemotherapy medication (Temodar) will continue to be ordered through our pharmacy. If any issues arise, the pharmacy will mail the medication to you. We discussed your labs: - You need to have labs drawn today. Lizeth will call you with the results, and she and I will review them to ensure you are cleared to start cycle 7 of chemotherapy. We discussed your follow-up care: - Consider establishing care with a [facility] primary care physician in [facility] tohelp coordinate your complex medical needs. These locations are outpatient facilities and can provide continuity of care. - If you need any medication refills before establishing care with a new physician, please contact our office, and I will assist. Please let us know if you experience any new or worsening symptoms or have any concerns about your treatment plan. documented in this encounterAdena Regional Medical Center07-01-2025 History of Present illness Narrative* Keith Dorsey MD - 11/06/2024 9:00 AM EDT Images from the original note were not included. NAME: Raeann Eckert CLINIC NO.: [id number] DATE OF SERVICE: November 06, 2024 (Jana) Some elements in this clinic note that are critical to medical decision making have been carefully reviewed and included from a prior clinic note dated: October 10, 2024 (Shanti) Referring Provider: Self Referred Additional Clinicians involved in Raeann Love Babar's care: DIAGNOSIS: Gliosarcoma CASE SUMMARY / ASSESSMENT: 58 year old woman who presented with mental status changes in November 2024 and was found to have a right partietal lobe lesion with vasogenic edema. 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 She is currently due to start C5 and was released from [place] to return back to her home in [place]. SUMMARIZED PLAN OF CARE: Labs today - Lizeth Juarez - please call results and clear for starting C7 C7 Temodar to start TuesdayNovember 07 continue with increased dose of Temodar 360mg, D1-5 q 28 days RTC in 4 weeks with labs same day prior to C8 Treat through May 2025. Referral to brain tumor clinic for follow up MRI Brain wo/w contrast - [facility] please Annual CT Chest to monitor pulmonary nodules - October 2025 AI Assisted A/P: 1. GBM (glioblastoma multiforme) (HCC) (C71.9) Currently undergoing chemotherapy with Temodar. Last MRI was in July. - Ordered MRI of the brain with and without contrast at a [facility] facility. - Referred to the brain tumor team at [facility] for further management and follow-up. 2. Pulmonary nodules/lesions, multiple (R91.8) Annual CT scans have been performed; latest scan reviewed and appeared stable. - Scheduled next annual CT scan for October. 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 - Refilled buspirone prescription. 4. Encounter for antineoplastic chemotherapy (Z51.11) Undergoing chemotherapy with Temodar, starting cycle 7 on November 07. - Ordered labs to be drawn today; results to be reviewed by Lizeth Mitchell and myself. - Continue Temodar 360 mg orally on days 1-5 of each cycle. 5. Current moderate episode of major depressive disorder without prior episode (HCC) (F32.1) Managed with citalopram 20 mg daily. - Refilled citalopram prescription. 6. Nonintractable epilepsy without status epilepticus, unspecified epilepsy type (HCC) (G40.909) Managed with levetiracetam (Keppra). - Refilled levetiracetam prescription. 7. Hypertensive heart and chronic kidney disease with heart failure and stage 1 through stage 4 chronic kidney disease, or unspecified chronic kidney disease (HCC) (I13.0) Managed with lisinopril and atenolol. - Refilled lisinopril and atenolol prescriptions. 8. Hyperlipidemia, unspecified hyperlipidemia type (E78.5) Managed with atorvastatin. - Refilled atorvastatin prescription. 9. Gastro-esophageal reflux disease without esophagitis (K21.9) Managed with omeprazole. - Refilled omeprazole prescription. CASE HISTORY: Reverse Chronological Order 07/27/2024 - CT Chest wo c: 1. Bilateral subcentimeter pulmonary nodules, as above. Given the patient's history, correlation with follow-up examinations is recommended to assess for stability. 2. No substantial intrathoracic adenopathy is identified. 10/10/2024 - start C6 Temodar- 360 mg on D1-5 q 28days 09/12/2024 - Start C5 Temodar - increase to 360mg on D1-5 q 28 days 08/13/2024-08/17/2024 - C4 D1-5 q 28 Temodar 07/27/2024 - MRI Brain: Postsurgical changes of prior right parietal craniotomy and mass resection. Slight interval increase in surrounding hyperintensity with new mildly irregular enhancement along the medial margin of theresection cavity. Findings may relate to evolving posttreatment change and/or recurrent or progressive disease. Recommend continued attention on follow-up. 07/16/2024-07/20/2024 - C3 Temodar 06/19/2024-06/23/2024 - C2 Temodar 05/30/2024 - MRI Brain: Postsurgical changes of prior right parietal mass resection. No findings suggestive of recurrent orprogressive disease. Mild increase in hyperintensity along the anterior and superior margins of theresection cavity may relate to evolving posttreatment changes. 05/21/2024-05/25/2024 - C1 adjuvant Temodar 320mg 5 days on (23 days off) 04/02/2024 - MRI Brain: Postoperative changes of right parietal GBM resection, without evidence of residual or recurrent tumor. Expected evolution of postoperative changes with significant interval decrease in size of resection cavity and surrounding vasogenic white matter edema in the right parietal lobe. Mild burden of presumed chronic small vessel ischemic white matter disease. 01/12/2024-03/08/2024 - Concurrent Temodar per Dr. Rebecca Oh at [facility] - held 02/23-03/01 due to low platelets 01/12/2024-03/08/2024 - 30 fractions concurrent radiation: per Dr. Alexandr Field at [facility] 01/04/2024 - Repeated sim 12/21/2023 - Scheduled to start radiation but cancelled to reportedly treat locally 12/09/2023 - Completed radiation sim 11/23/2023 - CT Brain & MRI Brain: Post resection of a high-grade glioma from the right parietal region. This study will serve as a baseline for future follow-up. 11/23/2023 - Right Craniotomy - Case #: [id number]: Dr. Raphael Mckee at [facility] A-B. 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 Endothelial proliferation and necrosis are present. Immunohistochemistry performed on Block B2 demonstrate the lesional cells to be POSITIVE for CD10, focal GFAP, focal Olig2, and ATRX (retained, wild-type), while being NEGATIVE for IDH1 (R132H wild-type) and BRAF. P53 is overexpressed. PHH3 highlights mitotic figures up to 30/10 HPF and the Ki-67 proliferation index is up to approximately approximately 40%. Addendum: Negative IDH1 (R132H) immunohistochemistry is considered equivalent to [id number] status in thisage group, particularly in an ATRX-retained tumor. Additional studies performed: -CD68, CD163, MPO, and lysozyme highlight copious associated histiocytes, but are weak/negative in the neoplastic cells. -Vimentin is diffusely positive confirming antigenicity of the lesional cells. -BRG1 and INI1 are retained. -The remaining markers are negative: SOX10, S100, SMA, pankeratin, inhibin, MOC- 31, CD1a, CK5/6, MART1, p63, SF1, SALL4, GATA3, ERG, desmin, FRANCESCA, CK19, CK20, INSM1, Mono-EP4, PAX8, CAM 5.2, CD30, and CK7. 11/22/2023 - CT CAP: Chest: No evidence of intrathoracic metastatic disease. A/P: Indeterminate bilateral adrenal nodules, which likely represent adenomas. Comparison to previous outside imaging would be of value to determine stability if available. Otherwise, these can be further evaluated with contrast-enhanced MRI or CT adrenal protocol. Otherwise, no metastatic disease in the abdomen or pelvis. Additional findings [in the body of the report]. 11/22/2023 - MRI Brain/Spine: Brain: Heterogeneous solid cystic mass within the right parietal lobe measuring up to 3.5 cm. Differential considerations include a primary WORKFORCE PLANNING ANALYST malignancy such as a high-grade glioma versus metastatic disease. Associated mild mass effect with slight leftward midline shift. Cervical: No acute cervical spine abnormalities. No abnormal enhancement. Mild cervical spondylosiswithout high-grade spinal canal stenosis or neuroforaminal narrowing. Thoracic: No suspicious cord signal abnormality or pathologic enhancement. Thoracic spondylosis without high-grade spinal canal stenosis or neuroforaminal narrowing. Indeterminate small lesion withinthe T10 vertebral body. If there is clinical concern for osseous metastatic disease, this can be further evaluated with a nuclear medicine bone scan as clinically indicated. Lumbar: No acute abnormality of the lumbar spine. No cord signal abnormality or suspicious enhancement. Mild multilevel lumbar spondylosis without high-grade spinal canal stenosis or neuroforaminal narrowing. 11/22/2023 - CXR: No focal consolidation. Nodularities right lung. Recommend comparison to any prior outside imaging. In the absence of priorimaging dedicated CT scan is recommended. 11/22/2023-11/29/2024 - Admitted at [facility] - presented as a direct admission from [facility] for NSGY evaluation for a R parietal lesion with surrounding edema notedon CTH at the OSH Portions of 12/2023-07/2024 case history copied from Sarah Ward's progress note from 07/27/2024 HPI: Updated Visit, November 06, 2024: On 05/2024, the patient was diagnosed with glioblastoma. She completed radiation therapy from January to February 2025 and began chemotherapy in May 2025. She is currently on cycle 7 of chemotherapy with Temodar, scheduled to start on November 07. She has been receiving annual lung scans, with the next one planned for October. She has not had recent follow-up MRIs of the brain or connected with the brain tumor team. She reports that the chemotherapy causes significant fatigue, leading her to sleep most of the timeduring treatment. She also experiences nausea if she does not take her stomach medication prior to chemotherapy. She mentions persistent vision issues, which have impacted her ability to drive, and occasional episodes of depression. She is currently taking citalopram 20 mg daily, buspirone, and montelukast. She is also on Keppra, atorvastatin, omeprazole, atenolol, lisinopril, and aspirin. She reports needing refills for atorvastatin, lisinopril, and buspirone. Updated Visit, October 10, 2024: Madina returns for follow up. Did okay with temodar last cycle. Still have fatigue and nausea if she doesn't take antiemetics before the temodar. She is drinking plenty of water and fluids Her eating habits are down. She doesn't have the energy to cook. She no longer lives with her sister who was cooking for her. No fevers, chills, increased headaches. She has had some dizziness off and on lately. Ct chest is scheduled 10/30 to follow up on nodules. Updated Visit, September 11, 2024: Madina returns with Nicho for a follow up. She is due to begin C5 Temodar tomorrow at an increased dose of 360mg - labs indicate she is safe to proceed. Will then follow up in 4 weeks, just prior to C6. She reports fatigue after about 1 hour of walking, vision changes, difficulty balancing, and nightmares. She also has some superficial skin wounds on her arms, most likely due to prior steroid use. Initial Visit, August 28, 2024: Raeann Eckert presents today for a Hematology and Oncology evaluation. She is transitioning her care to [place] after moving back home from [place]. She is joined today by her older sister, Nicho. Raeann is a 58 year old female who is currently on adjuvant single agent Temodar for IDH- wildtype glioblastoma. Will increase dose to 360mg daily D1-5 q 28 days for C5. She endorses current weakness in her left sided extremities and vision changes consistent with a left visual field cut. Advised she follow up with an handle sewer. Will order CT Chest to be completed annually to follow pulmonary nodules. Prior History from Sarah Ward's Progress Note on 07/27/2024: HPI: Tiffany Eckert is a 58 y.o. female with a right parietal glioblastoma (IDH-wildtype) who has a PMHx of HTN and CAD. The patient initially presented on 11/22/2023 with headaches, L sided weakness, and ataxia. She initially felt her left sided weakness was secondary to a left sided shoulder injury. An MRI brain showed a lesion in the R parietal lobe, and she subsequently underwent surgical intervention on 11/23/23 with pathology consistent of a glioblastoma. She completed concurrent chemoradiation on 03/07/24. Subjective: The patient presents to clinic accompanied by a long time friend. She reports that she is unsure ofOptune; we discussed that she can hold off for now and wait until we see changes on her MRI since she is hesitant to start; she is agreeable and preferable to this plan. Dr. Oh discussed that her imaging is currently stable and we will repeat imaging in 2 months. We will see her back in 1 month for clinical follow up. Assessment and Plan: // Right Parietal Glioblastoma/Gliosarcoma - MRI done today is stable - repeat MRI with perfusion in 2 months - recently completed cycle 3 of TMZ - we can alternate her visits with in person and TM // Temodar Use - continue TMZ 150 mg/m2 5 days on, 23 days off. - Take Zofran 8mg 1 hour beforehand. - Take Temodar with 8oz glass of water - assessed adherence, addressed barriers to treatment, and evaluated toxicities - CBC and CMP reviewed. Q2W labs - Continue bowel regimen - Fatigue is expected on treatment // Seizure Prophylaxis - continue Keppra 500mg BID REVIEW OF SYSTEMS Per HPI and otherwise negative by full review of organ systems. Constitutional: (+) fatigue Eyes: (+) impaired vision Psychiatric: (+) depressed mood ECOG PERFORMANCE STATUS: 1 PHYSICAL EXAMINATION: Vitals: BP 134/80 Pulse 98 Temp (Src) 97 (Temporal) Resp 16 Ht 5' 4.213 (1.63m) Wt 223 lb 8.7 oz (101.4kg) SpO2 94% BMI 38.12 kg/(m^2). Body surface area is 2.14 meters squared. Exam limited to gross visualization where appropriate. Gen.: This is an age-appropriate patient in no acute distress. Head: Appears atraumatic with no visible lesions. Eyes: Pupils equally round and reactive to light, extraocular muscles are intact. Neck: Supple. Respiratory: Appears to be respiring comfortably. Neurologic: Nonfocal to gross visualization. Alert and oriented 3. Psychiatric: No evidence of inappropriate anxiety or depression. Skin: Visible areas of skin without rash, lesions, wounds or petechiae. ALLERGIES: ALLERGIES Allergen Reactions Hydrocodone Hives HIVES, itching, red rash all over body. Oxycodone Hives, Rash MEDICATIONS: levETIRAcetam (KEPPRA) 500 mg tablet Take 1 tablet by mouth two times a day. Acetaminophen 500 mg cap Take by mouth. fluticasone propionate (FLONASE NASAL) Use in the nose. aspirin, enteric coated (ASPIRIN, ENTERIC COATED) 81 mg EC tablet Take 81 mg by mouth once daily. atenolol (TENORMIN) 50 mg tablet Take 50 mg by mouth once daily. For 30 days ezetimibe (ZETIA) 10 mg tablet Take 10 mg by mouth once daily. omeprazole (PRILOSEC) 20 mg capsule Take 20 mg by mouth once daily. ondansetron orally disintegrating (ZOFRAN ODT) 4 mg disintegrating tablet Take 8 mg by mouth every 8 hours as needed. prochlorperazine (COMPAZINE) 10 mg tablet Take 10 mg by mouth every 8 hours as needed. senna-docusate (SENNA-S) 8.6-50 mg per tablet Take 1 tablet by mouth two times a day. lisinopril (ZESTRIL) 5 mg tablet Take 1 tablet by mouth once daily. citalopram (CELEXA) 20 mg tablet Take 1 tablet by mouth once daily busPIRone (BUSPAR) 10 mg tablet Take 1 tablet by mouth two times a day. atorvastatin (LIPITOR) 80 mg tablet Take 1 tablet by mouth once daily. temozolomide (TEMODAR) 180 mg capsule Take 2 capsules (360 mg) by mouth once daily for 5 days. LABORATORY VALUES: WBC (k/uL) Date Value 11/06/2024 4.15 RBC (m/uL) Date Value 11/06/2024 3.96 Hemoglobin (g/dL) Date Value 11/06/2024 12.8 Hematocrit (%) Date Value 11/06/2024 37.6 MCV (fL) Date Value 11/06/2024 94.9 MCH (pg) Date Value 11/06/2024 32.3 MCHC (g/dL) Date Value 11/06/2024 34.0 RDW-CV (%) Date Value 11/06/2024 13.8 Platelet Count (k/uL) Date Value 11/06/2024 129 (L) MPV (fL) Date Value 11/06/2024 8.7 (L) Glucose (mg/dL) Date Value 11/06/2024 112 (H) BUN (mg/dL) Date Value 11/06/2024 12 Creatinine (mg/dL) Date Value 11/06/2024 0.76 Sodium (mmol/L) Date Value 11/06/2024 137 Potassium (mmol/L) Date Value 11/06/2024 4.6 Chloride (mmol/L) Date Value 11/06/2024 99 CO2 (mmol/L) Date Value 11/06/2024 28 Protein, Total (g/dL) Date Value 11/06/2024 7.3 Albumin (g/dL) Date Value 11/06/2024 4.1 Calcium, Total (mg/dL) Date Value 11/06/2024 9.6 Alkaline Phosphatase (U/L) Date Value 11/06/2024 126 (H) Bilirubin, Total (mg/dL) Date Value 11/06/2024 0.4 AST (U/L) Date Value 11/06/2024 14 ALT (U/L) Date Value 11/06/2024 15 DIAGNOSIS: (C71.9) GBM (glioblastoma multiforme) (HCC) (primary encounter diagnosis) Plan: MRI BRAIN WO/W IVCON, iv contrast (will be provided with radiology test), CONSULT TO NEUROSURGERY, busPIRone (BUSPAR) 10 mg tablet, temozolomide (TEMODAR) 180 mg capsule (R91.8) Pulmonary nodules/lesions, multiple Plan: MRI BRAIN WO/W IVCON, iv contrast (will be provided with radiology test) (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 Plan: busPIRone (BUSPAR) 10 mg tablet (Z51.11) Encounter for antineoplastic chemotherapy (F32.1) Current moderate episode of major depressive disorder without prior episode (HCC) (G40.909) Nonintractable epilepsy without status epilepticus, unspecified epilepsy type (HCC) (I13.0) Hypertensive heart and chronic kidney disease with heart failure and stage 1 through stage 4 chronic kidney disease, or unspecified chronic kidney disease (HCC) (E78.5) Hyperlipidemia, unspecified hyperlipidemia type (K21.9) Gastro-esophageal reflux disease without esophagitis PAST MEDICAL HISTORY Diagnosis Date Glioblastoma (HCC) Hypertension Lung nodules PAST SURGICAL HISTORY Procedure Laterality Date LIGATE FALLOPIAN TUBE PAST SURGICAL HISTORY OF Rt Craniotomy for tumor resection with navigation and neuromonitoring PT ED HEART AND VASCULAR x2 Social History Tobacco Use Smoking status: Former Types: Cigarettes Smokeless tobacco: Never Vaping Use Vaping status: current everyday user Substances: Nicotine, Flavoring Devices: Disposable Substance Use Topics Alcohol use: Not Currently Drug use: Never FAMILY HISTORY Problem Relation Age of Onset Liver Cancer Mother Hypertension Mother Prostate Cancer Father Skin Cancer Father No Known Problems Sister Hypertension Brother Skin Cancer Brother Heart disease Brother Liver Disease Maternal Grandmother Diabetes Maternal Grandfather Heart disease Maternal Grandfather Diabetes Paternal Grandfather I spent a total of 30 minutes on the date of service which included preparing to see the patient, [id number] patient care, completing clinical documentation, obtaining and/or reviewing separately obtained history, performing a medically appropriate examination, counseling and educating the patient/family/caregiver, ordering medications, tests, or procedures, communicating with other HCPs (not separately reported), independently interpreting results (not separately reported), communicating results to the patient/family/caregiver, and care coordination (not separately reported). Keith Dorsey MD, CPE Hematology and Oncology Services Provided at: [place], [place] CC: SELF documented in this encounterA[facility]07-[facility] NoteHNO ID: [id number] Author: KEITH DORSEY MD Service: ? Author Type: Physician Type: Progress Notes Filed: 11/12/2024 10:46 Note Text: NAME: Raeann Eckert CLINIC NO.: [id number] DATE OF SERVICE: November 06, 2024 ([email or web address]) Some elements in this clinic note that are critical to medical decision making have been carefully reviewed and included from a prior clinic note dated: October 10, 2024 (Shanti) Referring Provider: Self Referred Additional Clinicians involved in Raeann Eckert's care: DIAGNOSIS: Gliosarcoma CASE SUMMARY / ASSESSMENT: 58 year old woman who presented with mental status changes in November 2024 and was found to have a right partietal lobe lesion with vasogenic edema. 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 She is currently due to start C5 and was released from [place] to return back to her home in [place]. SUMMARIZED PLAN OF CARE: Labs today - Lizeth Juarez - please call results and clear for starting C7 C7 Temodar to start TuesdayNovember 07 continue with increased dose of Temodar 360mg, D1-5 q 28 days RTC in 4 weeks with labs same day prior to C8 Treat through May 2025. Referral to brain tumor clinic for follow up MRI Brain wo/w contrast - [facility] please Annual CT Chest to monitor pulmonary nodules - October 2025 AI Assisted A/P: 1. GBM (glioblastoma multiforme) (HCC) (C71.9) Currently undergoing chemotherapy with Temodar. Last MRI was in July. - Ordered MRI of the brain with and without contrast at a [facility] facility. - Referred to the brain tumor team at [facility] for further management and follow-up. 2. Pulmonary nodules/lesions, multiple (R91.8) Annual CT scans have been performed; latest scan reviewed and appeared stable. - Scheduled next annual CT scan for October. 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 - Refilled buspirone prescription. 4. Encounter for antineoplastic chemotherapy (Z51.11) Undergoing chemotherapy with Temodar, starting cycle 7 on November 07. - Ordered labs to be drawn today; results to be reviewed by Lizeth Mitchell and myself. - Continue Temodar 360 mg orally on days 1-5 of each cycle. 5. Current moderate episode of major depressive disorder without prior episode (HCC) (F32.1) Managed with citalopram 20 mg daily. - Refilled citalopram prescription. 6. Nonintractable epilepsy without status epilepticus, unspecified epilepsy type (HCC) (G40.909) Managed with levetiracetam (Keppra). - Refilled levetiracetam prescription. 7. Hypertensive heart and chronic kidney disease with heart failure and stage 1 through stage 4 chronic kidney disease, or unspecified chronic kidney disease (HCC) (I13.0) Managed with lisinopril and atenolol. - Refilled lisinopril and atenolol prescriptions. 8. Hyperlipidemia, unspecified hyperlipidemia type (E78.5) Managed with atorvastatin. - Refilled atorvastatin prescription. 9. Gastro-esophageal reflux disease without esophagitis (K21.9) Managed with omeprazole. - Refilled omeprazole prescription. CASE HISTORY: Reverse Chronological Order 07/27/2024 - CT Chest wo c: 1. Bilateral subcentimeter pulmonary nodules, as above. Given the patient's history, correlation with follow-up examinations is recommended to assess for stability. 2. No substantial intrathoracic adenopathy is identified. 10/10/2024 - start C6 Temodar- 360 mg on D1-5 q 28days 09/12/2024 - Start C5 Temodar - increase to 360mg on D1-5 q 28 days 08/13/2024-08/17/2024 - C4 D1-5 q 28 Temodar 07/27/2024 - MRI Brain: Postsurgical changes of prior right parietal craniotomy and mass resection. Slight interval increase in surrounding hyperintensity with new mildly irregular enhancement along the medial margin of the resection cavity. Findings may relate to evolving posttreatment change and/or recurrent or progressive disease. Recommend continued attention on follow-up. 07/16/2024-07/20/2024 - C3 Temodar 06/19/2024-06/23/2024 - C2 Temodar 05/30/2024 - MRI Brain: Postsurgical changes of prior right parietal mass resection. No findings suggestive of recurrent or progressive disease. Mild increase in hyperintensity along the anterior and superior margins of the resection cavity may relate to evolving posttreatment changes. 05/21/2024-05/25/2024 - C1 adjuvant Temodar 320mg 5 days on (23 days off) 04/02/2024 - MRI Brain: Postoperative changes of right parietal GBM resection, without evidence of residual or recurrent tumor. Expected evol (more content not included)... [facility]06-24-2025 History of Present illness Narrative* Simone Mays RT(R) - 10/30/2024 2:15 PM EDT Radiology Service Progress Note PATIENT NAME: Raeann Eckert DATE OF SERVICE: October 30, 2024 TIME: 2:24 PM PATIENT IDENTITY VERIFICATION COMPLETED USING TWO (2) IDENTIFIERS: Name and Date of confirmedby patient verbally. FALL SCREENING: Has the patient had 2 falls in the last year or 1 fall with injury or currently using an Ambulatory Assistive Device (Walker, Cane, Wheelchair, Crutches, etc.)? No PATIENT GENDER DATA: Assigned female at . status: : No status:NO. PATIENT RELEVANT IMPLANT DATA REVIEWED: Not Applicable PATIENT PRESENTS WITH AN IMPLANTABLE OR ATTACHED AUDITOR MEDICAL CLAIMS: No RADIOLOGY DEPARTMENT: CT; Exam(s) Completed: Chest PERIPHERAL IV DATA: Not applicable SIGNED BY: RT Crow(R) October 30, 2024 2:24 PM documented in this encounterAdena [facility]06-24-2025 NoteHNO ID: [id number] Author: SIMONE MAYS RT(R) Service: ? Author Type: Technologist Type: Progress Notes Filed: 10/30/2024 14:25 Note Text: Radiology Service Progress Note PATIENT NAME: Raeann Eckert DATE OF SERVICE: October 30, 2024 TIME: 2:24 PM PATIENT IDENTITY VERIFICATION COMPLETED USING TWO (2) IDENTIFIERS: Name and Date of confirmed by patient verbally. FALL SCREENING: Has the patient had 2 falls in the last year or 1 fall with injury or currently using an Ambulatory Assistive Device (Walker, Cane, Wheelchair, Crutches, etc.)? No PATIENT GENDER DATA: Assigned female at . status: : No status: NO. PATIENT RELEVANT IMPLANT DATA REVIEWED: Not Applicable PATIENT PRESENTS WITH AN IMPLANTABLE OR ATTACHED AUDITOR MEDICAL CLAIMS: No RADIOLOGY DEPARTMENT: CT; Exam(s) Completed: Chest PERIPHERAL IV DATA: Not applicable SIGNED BY: RT Crow(R) October 30, 2024 2:[address] Telephone encounter Note* Telephone Encounter - Emma Slater LSW - 10/12/2024 2:45 PM EDT SOCIAL WORK FOLLOW UP NOTE: [facility] Date of service:10/12/24 TOPICS ADDRESSED: finances and community resources PLAN: Continue follow up as needed Assigned SW listed in Care Team tab: Yes SW spoke with Mariaa from the [employer]. Patient is approved for the $500 Cancer Care Fund and canuse the fund to pay for the prescription that his waiting for her at [facility]. Mariaa requested that the [facility] fax over an invoice for the prescription cost. AYAKA shared this with the [facility] team. MARCELINO Navarro [facility]06-06-2025 Miscellaneous Notes* Telephone Encounter - Emma Slater LSW - 10/12/2024 2:45 PM EDT SOCIAL WORK FOLLOW UP NOTE: [facility] Date of service:10/12/24 TOPICS ADDRESSED: finances and community resources PLAN: Continue follow up as needed Assigned AYAKA listed in Care Team tab: Yes AYAKA spoke with Mariaa from the [facility]. Patient is approved for the $500 Cancer Care Fund and canuse the fund to pay for the prescription that his waiting for her at [facility]. Mariaa requested that the [facility] fax over an invoice for the prescription cost. AYAKA shared this with the [facility] team. MARCELINO Navarro documented in this encounterAdena [facility]06-05-2025 Telephone encounter Note * Telephone Encounter - Emma Slater LSW - 10/11/2024 2:15 PM EDT SOCIAL WORK FOLLOW UP NOTE: [facility] Date of service:10/11/24 Raeann Eckert is being seen for a follow up social work visit. Today's visit includes: patient TOPICS ADDRESSED: community resources and financial assistance for a prescription PLAN: Assist with financial support applications, Continue follow up as needed , and Referral to community resource Assigned AYAKA listed in Care Team tab: Yes Patient called and left asking for an update her application with the [facility]. SW called the [facility] and they are waiting for proof of residency in [facility] before they can process her application. [facility] said they called the Patient to discuss this, butwas unable to reach her. SW spoke with Patient regarding the above. Patient emailed SW a copy of her rent/lease agreement. AYAKA faxed this documentation to the [facility]. [employer] was unable to see the fax so this SW emailed them the documents. Awaiting clearance from [facility] to proceed with th prescription assistance request. MARCELINO Navarro [facility]06-05-2025 Miscellaneous Notes* Telephone Encounter - Emma Slater LSW - 10/11/2024 2:15 PM EDT SOCIAL WORK FOLLOW UP NOTE: [facility] Date of service:10/11/24 Raeann Eckert is being seen for a follow up social work visit. Today's visit includes: patient TOPICS ADDRESSED: community resources and financial assistance for a prescription PLAN: Assist with financial support applications, Continue follow up as needed , and Referral to community resource Assigned AYAKA listed in Care Team tab: Yes Patient called and left VM asking for an update her application with the [facility]. SW called the [facility] and they are waiting for proof of residency in [facility] before they can process her application. [facility] said they called the Patient to discuss this, butwas unable to reach her. SW spoke with Patient regarding the above. Patient emailed SW a copy of her rent/lease agreement. SW faxed this documentation to the [facility]. [facility] was unable to see the fax so this SW emailed them the documents. Awaiting clearance from [facility] to proceed with th prescription assistance request. MARCELINO Navarro documented in this encounterA[facility]06-[facility] Telephone encounter Note * Telephone Encounter - Emma Slater LSW - 10/10/2024 2:08 PM EDT Called Patient and [facility]. AYAKA completed an intake application for the Cancer Care Fund. [facility] will process the application and call this AYAKA back with the whether or not it was approved for $500. MARCELINO Navarro [facility]06-04-2025 Miscellaneous Notes* Telephone Encounter - Emma Slater LSW - 10/10/2024 2:08 PM EDT Called Patient and [facility]. AYAKA completed an intake application for the Cancer Care Fund. [facility] will process the application and call this AYAKA back with the whether or not it was approved for $500. Emma Bryon, [employer]-S * Telephone Encounter - Maricruz Bailey RPh - 10/10/2024 12:16 PM EDT Raeann's Medicaid terminated 10/06/24 and she is in the process of trying to get it reinstated. She is due for a fill of her oral chemotherapy. The cost of this on a discount card is $220.40. She currently is living in [facility]. Are you able to see if any of our local organization would be able to help cover this 1 month while she gets her insurance reinstated? Best number to reach her at with any questions is [phone]. Let me know, Thank you Shola Bailey, PharmD, BCOP documented in this encounterAdena [facility] Center06-04-2025 Telephone encounter Note * Telephone Encounter - Emma Slater LSW - 10/10/2024 1:36 PM EDT Social Work Problem Referral Note INFORMATION/REFERRAL : Raeann Eckert 58 year old female was referred by PharmacistShola to [facility] Social Work for the following reason(s): financial assistance - meals, parking, etc. PERSONS INTERVIEWED: patient INTERVENTION: Information & Referral Service Co-ordination Affect/Mood: The patient is noted as appropriate IDENTIFIED PROBLEMS/NEEDS: Financial Intervention/Referral to be provided:Information for community resources/agencies IMPRESSION/PLAN:Referral received to assist Patient with financial resources to cover the cost of aprescription. SW called Patient to discuss. Patient's Medicaid coverage termed on 10/06 and she is in the process of re-applying. Patient was agreeable to apply for the [facility]. SWcompleted the application and faxed it. SW called [employer] [phone] and explained that the Patient's medication is here at [facility] and she cannot afford it. [employer] will process the application and if approved they will cover the medication costs. Awaiting a determination call from the [facility]. Assigned SW listed in Care Team tab: Yes MARCELINO Navarro [facility]06-04-2025 Miscellaneous Notes* Telephone Encounter - Emma Slater LSW - 10/10/2024 1:36 PM EDT Social Work Problem Referral Note INFORMATION/REFERRAL : Raeann Eckert 58 year old female was referred by PharmacistShola to [facility] Social Work for the following reason(s): financial assistance - meals, parking, etc. PERSONS INTERVIEWED: patient INTERVENTION: Information & Referral Service Co-ordination Affect/Mood: The patient is noted as appropriate IDENTIFIED PROBLEMS/NEEDS: Financial Intervention/Referral to be provided:Information for community resources/agencies IMPRESSION/PLAN:Referral received to assist Patient with financial resources to cover the cost of aprescription. SW called Patient to discuss. Patient's Medicaid coverage termed on 10/06 and she is in the process of re-applying. Patient was agreeable to apply for the [facility]. SWcompleted the application and faxed it. SW called [employer] [phone] and explained that the Patient's medication is here at [facility] and she cannot afford it. [employer] will process the application and if approved they will cover the medication costs. Awaiting a determination call from the [facility]. Assigned SW listed in Care Team tab: Yes MARCELINO Navarro documented in this encounterAdena [facility] Center06-04-2025 Telephone encounter Note * Telephone Encounter - Maricruz Bailey RPh - 10/10/2024 12:16 PM EDT Raeann's Medicaid terminated 10/06/24 and she is in the process of trying to get it reinstated. She is due for a fill of her oral chemotherapy. The cost of this on a discount card is $220.40. She currently is living in [facility]. Are you able to see if any of our local organization would be able to help cover this 1 month while she gets her insurance reinstated? Best number to reach her at with any questions is [phone]. Let me know, Thank you Shola Bailey, PharmD, BCOP [facility] Work Phone: 1(223) 421-867106-04-2025 History of Present illness Narrative* Toña Franklin PA-C - 10/10/2024 11:30 AM EDT Images from the original note were not included. NAME: BabarRaeann CLINIC NO.: [id number] DATE OF SERVICE: October 10, 2024 (Shanti) Some elements in this clinic note that are critical to medical decision making have been carefully reviewed and included from a prior clinic note dated: September 11, 2024 (Jana) Referring Provider: Self Referred Additional Clinicians involved in Raeann Love Eckert's care: DIAGNOSIS: Gliosarcoma ASSESSMENT: 58 year old woman who presented with mental status changes in November 2024 and was found to have a right partietal lobe lesion with vasogenic edema. 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 She is currently due to start C5 and was released from [place] to return back to her home in [place]. PLAN: C6 Temodar start tomorrow - Increase dose to 360mg, D1-5 q 28 days Do not start next cycle (C7) until released by physician during follow up appointment RTC on 11/07/2024 Labs same day Annual CT Chest to monitor pulmonary nodules -scheduled 10/30/2024, just prior to C7 HPI: CASE HISTORY: Reverse Chronological Order 10/10/2024 - start C6 Temodar- 360 mg on D1-5 q 28days 09/12/2024 - Start C5 Temodar - increase to 360mg on D1-5 q 28 days 08/13/2024-08/17/2024 - C4 D1-5 q 28 Temodar 07/27/2024 - MRI Brain: Postsurgical changes of prior right parietal craniotomy and mass resection. Slight interval increase in surrounding hyperintensity with new mildly irregular enhancement along the medial margin of theresection cavity. Findings may relate to evolving posttreatment change and/or recurrent or progressive disease. Recommend continued attention on follow-up. 07/16/2024-07/20/2024 - C3 Temodar 06/19/2024-06/23/2024 - C2 Temodar 05/30/2024 - MRI Brain: Postsurgical changes of prior right parietal mass resection. No findings suggestive of recurrent orprogressive disease. Mild increase in hyperintensity along the anterior and superior margins of theresection cavity may relate to evolving posttreatment changes. 05/21/2024-05/25/2024 - C1 adjuvant Temodar 320mg 5 days on (23 days off) 04/02/2024 - MRI Brain: Postoperative changes of right parietal GBM resection, without evidence of residual or recurrent tumor. Expected evolution of postoperative changes with significant interval decrease in size of resection cavity and surrounding vasogenic white matter edema in the right parietal lobe. Mild burden of presumed chronic small vessel ischemic white matter disease. 01/12/2024-03/08/2024 - Concurrent Temodar per Dr. Rebecca Oh at [facility] - held 02/23-03/01 due to low platelets 01/12/2024-03/08/2024 - 30 fractions concurrent radiation: per Dr. Alexandr Field at [facility] 01/04/2024 - Repeated sim 12/21/2023 - Scheduled to start radiation but cancelled to reportedly treat locally 12/09/2023 - Completed radiation sim 11/23/2023 - CT Brain & MRI Brain: Post resection of a high-grade glioma from the right parietal region. This study will serve as a baseline for future follow-up. 11/23/2023 - Right Craniotomy - Case #: [id number]: Dr. Raphael Mckee at [facility] A-B. 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 Endothelial proliferation and necrosis are present. Immunohistochemistry performed on Block B2 demonstrate the lesional cells to be POSITIVE for CD10, focal GFAP, focal Olig2, and ATRX (retained, wild-type), while being NEGATIVE for IDH1 (R132H wild-type) and BRAF. P53 is overexpressed. PHH3 highlights mitotic figures up to 30/10 HPF and the Ki-67 proliferation index is up to approximately approximately 40%. Addendum: Negative IDH1 (R132H) immunohistochemistry is considered equivalent to [id number]-[id number] status in thisage group, particularly in an ATRX-retained tumor. Additional studies performed: -CD68, CD163, MPO, and lysozyme highlight copious associated histiocytes, but are weak/negative in the neoplastic cells. -Vimentin is diffusely positive confirming antigenicity of the lesional cells. -BRG1 and INI1 are retained. -The remaining markers are negative: SOX10, S100, SMA, pankeratin, inhibin, MOC- 31, CD1a, CK5/6, MART1, p63, SF1, SALL4, GATA3, ERG, desmin, FRANCESCA, CK19, CK20, INSM1, Mono-EP4, PAX8, CAM 5.2, CD30, and CK7. 11/22/2023 - CT CAP: Chest: No evidence of intrathoracic metastatic disease. A/P: Indeterminate bilateral adrenal nodules, which likely represent adenomas. Comparison to previous outside imaging would be of value to determine stability if available. Otherwise, these can be further evaluated with contrast-enhanced MRI or CT adrenal protocol. Otherwise, no metastatic disease in the abdomen or pelvis. Additional findings [in the body of the report]. 11/22/2023 - MRI Brain/Spine: Brain: Heterogeneous solid cystic mass within the right parietal lobe measuring up to 3.5 cm. Differential considerations include a primary WORKFORCE PLANNING ANALYST malignancy such as a high-grade glioma versus metastatic disease. Associated mild mass effect with slight leftward midline shift. Cervical: No acute cervical spine abnormalities. No abnormal enhancement. Mild cervical spondylosiswithout high-grade spinal canal stenosis or neuroforaminal narrowing. Thoracic: No suspicious cord signal abnormality or pathologic enhancement. Thoracic spondylosis without high-grade spinal canal stenosis or neuroforaminal narrowing. Indeterminate small lesion withinthe T10 vertebral body. If there is clinical concern for osseous metastatic disease, this can be further evaluated with a nuclear medicine bone scan as clinically indicated. Lumbar: No acute abnormality of the lumbar spine. No cord signal abnormality or suspicious enhancement. Mild multilevel lumbar spondylosis without high-grade spinal canal stenosis or neuroforaminal narrowing. 11/22/2023 - CXR: No focal consolidation. Nodularities right lung. Recommend comparison to any prior outside imaging. In the absence of priorimaging dedicated CT scan is recommended. 11/22/2023-11/29/2024 - Admitted at [facility] - presented as a direct admission from [facility] for NSGY evaluation for a R parietal lesion with surrounding edema notedon CTH at the OSH Portions of 12/2023-07/2024 case history copied from Sarah Ward's progress note from 07/27/2024 Updated Visit, October 10, 2024: Madina returns for follow up. Did okay with temodar last cycle. Still have fatigue and nausea if she doesn't take antiemetics before the temodar. She is drinking plenty of water and fluids Her eating habits are down. She doesn't have the energy to cook. She no longer lives with her sister who was cooking for her. No fevers, chills, increased headaches. She has had some dizziness off and on lately. Ct chest is scheduled 10/30 to follow up on nodules. Updated Visit, September 11, 2024: Madina returns with Nicho for a follow up. She is due to begin C5 Temodar tomorrow at an increased dose of 360mg - labs indicate she is safe to proceed. Will then follow up in 4 weeks, just prior to C6. She reports fatigue after about 1 hour of walking, vision changes, difficulty balancing, and nightmares. She also has some superficial skin wounds on her arms, most likely due to prior steroid use. Initial Visit, August 28, 2024: Raeann Eckert presents today for a Hematology and Oncology evaluation. She is transitioning her care to [place] after moving back home from [place]. She is joined today by her older sister, Nicho. Raeann is a 58 year old female who is currently on adjuvant single agent Temodar for IDH- wildtype glioblastoma. Will increase dose to 360mg daily D1-5 q 28 days for C5. She endorses current weakness in her left sided extremities and vision changes consistent with a left visual field cut. Advised she follow up with an handle sewer. Will order CT Chest to be completed annually to follow pulmonary nodules. Prior History from Sarah Ward's Progress Note on 07/27/2024: HPI: Tiffany Eckert is a 58 y.o. female with a right parietal glioblastoma (IDH-wildtype) who has a PMHx of HTN and CAD. The patient initially presented on 11/22/2023 with headaches, L sided weakness, and ataxia. She initially felt her left sided weakness was secondary to a left sided shoulder injury. An MRI brain showed a lesion in the R parietal lobe, and she subsequently underwent surgical intervention on 11/23/23 with pathology consistent of a glioblastoma. She completed concurrent chemoradiation on 03/07/24. Subjective: The patient presents to clinic accompanied by a long time friend. She reports that she is unsure ofOptune; we discussed that she can hold off for now and wait until we see changes on her MRI since she is hesitant to start; she is agreeable and preferable to this plan. Dr. Oh discussed that her imaging is currently stable and we will repeat imaging in 2 months. We will see her back in 1 month for clinical follow up. Assessment and Plan: // Right Parietal Glioblastoma/Gliosarcoma - MRI done today is stable - repeat MRI with perfusion in 2 months - recently completed cycle 3 of TMZ - we can alternate her visits with in person and TM // Temodar Use - continue TMZ 150 mg/m2 5 days on, 23 days off. - Take Zofran 8mg 1 hour beforehand. - Take Temodar with 8oz glass of water - assessed adherence, addressed barriers to treatment, and evaluated toxicities - CBC and CMP reviewed. Q2W labs - Continue bowel regimen - Fatigue is expected on treatment // Seizure Prophylaxis - continue Keppra 500mg BID REVIEW OF SYSTEMS Per HPI and otherwise negative by full review of organ systems. ECOG PERFORMANCE STATUS: 1 PHYSICAL EXAMINATION: Vitals: BP 120/80 Pulse 85 Temp (Src) 97 (Temporal) Resp 16 Wt 222 lb 3.6 oz (100.8kg) SpO2 93% Body surface area is 2.14 meters squared. General: Alert and oriented, no distress, pleasant and cooperative. Heart: Regular, normal S1 and S2, no murmurs, rubs, or gallops Lungs: Clear to auscultation bilaterally Abdomen: Benign ALLERGIES: ALLERGIES Allergen Reactions Hydrocodone Hives HIVES, itching, red rash all over body. Oxycodone Hives, Rash MEDICATIONS: levETIRAcetam (KEPPRA) 500 mg tablet Take 1 tablet by mouth two times a day. temozolomide (TEMODAR) 180 mg capsule Take 2 capsules (360 mg) by mouth once daily for 5 days. Acetaminophen 500 mg cap Take by mouth. fluticasone propionate (FLONASE NASAL) Use in the nose. aspirin, enteric coated (ASPIRIN, ENTERIC COATED) 81 mg EC tablet Take 81 mg by mouth once daily. atenolol (TENORMIN) 50 mg tablet Take 50 mg by mouth once daily. For 30 days atorvastatin (LIPITOR) 80 mg tablet Take 80 mg by mouth once daily. busPIRone (BUSPAR) 10 mg tablet Take 10 mg by mouth two times a day. citalopram (CELEXA) 40 mg tablet Take 40 mg by mouth once daily. For 30 days ezetimibe (ZETIA) 10 mg tablet Take 10 mg by mouth once daily. omeprazole (PRILOSEC) 20 mg capsule Take 20 mg by mouth once daily. lisinopril (ZESTRIL) 5 mg tablet Take 5 mg by mouth once daily. For 30 days ondansetron orally disintegrating (ZOFRAN ODT) 4 mg disintegrating tablet Take 8 mg by mouth every 8 hours as needed. prochlorperazine (COMPAZINE) 10 mg tablet Take 10 mg by mouth every 8 hours as needed. senna-docusate (SENNA-S) 8.6-50 mg per tablet Take 1 tablet by mouth two times a day. LABORATORY VALUES: WBC (k/uL) Date Value 10/10/2024 4.23 RBC (m/uL) Date Value 10/10/2024 4.03 Hemoglobin (g/dL) Date Value 10/10/2024 13.0 Hematocrit (%) Date Value 10/10/2024 38.4 MCV (fL) Date Value 10/10/2024 95.3 MCH (pg) Date Value 10/10/2024 32.3 MCHC (g/dL) Date Value 10/10/2024 33.9 RDW-CV (%) Date Value 10/10/2024 13.7 Platelet Count (k/uL) Date Value 10/10/2024 148 (L) MPV (fL) Date Value 10/10/2024 8.7 (L) Glucose (mg/dL) Date Value 09/11/2024 141 (H) BUN (mg/dL) Date Value 09/11/2024 10 Creatinine (mg/dL) Date Value 09/11/2024 0.79 Sodium (mmol/L) Date Value 09/11/2024 138 Potassium (mmol/L) Date Value 09/11/2024 4.4 Chloride (mmol/L) Date Value 09/11/2024 101 CO2 (mmol/L) Date Value 09/11/2024 26 Protein, Total (g/dL) Date Value 09/11/2024 7.1 Albumin (g/dL) Date Value 09/11/2024 3.9 Calcium, Total (mg/dL) Date Value 09/11/2024 10.0 Alkaline Phosphatase (U/L) Date Value 09/11/2024 137 (H) Bilirubin, Total (mg/dL) Date Value 09/11/2024 0.3 AST (U/L) Date Value 09/11/2024 17 ALT (U/L) Date Value 09/11/2024 19 DIAGNOSIS: (C71.9) GBM (glioblastoma multiforme) (HCC) (primary encounter diagnosis) Plan: COMPREHENSIVE METABOLIC PANEL, COMPLETE BLOOD COUNT AND DIFFERENTIAL, temozolomide (TEMODAR) 180 mg capsule (R91.8) Pulmonary nodules/lesions, multiple Plan: COMPREHENSIVE METABOLIC PANEL, COMPLETE BLOOD COUNT AND DIFFERENTIAL PAST MEDICAL HISTORY Diagnosis Date Glioblastoma (HCC) Hypertension Lung nodules PAST SURGICAL HISTORY Procedure Laterality Date LIGATE FALLOPIAN TUBE PAST SURGICAL HISTORY OF Rt Craniotomy for tumor resection with navigation and neuromonitoring PT ED HEART AND VASCULAR x2 Social History Tobacco Use Smoking status: Former Types: Cigarettes Smokeless tobacco: Never Vaping Use Vaping status: current everyday user Substances: Nicotine, Flavoring Devices: Disposable Substance Use Topics Alcohol use: Not Currently Drug use: Never FAMILY HISTORY Problem Relation Age of Onset Liver Cancer Mother Hypertension Mother Prostate Cancer Father Skin Cancer Father No Known Problems Sister Hypertension Brother Skin Cancer Brother Heart disease Brother Liver Disease Maternal Grandmother Diabetes Maternal Grandfather Heart disease Maternal Grandfather Diabetes Paternal Grandfather I spent a total of 36 minutes on the date of the service which included preparing to see the patient, olqu-wi-riac patient care, completing clinical documentation, performing a medically appropriate examination, counseling and educating the patient/family/caregiver, ordering medications, tests, or p rocedures, independently interpreting results (not separately reported), communicating results to the patient/family/caregiver, and care coordination (not separately reported). Toña Franklin PA-C Hematology and Oncology Services Provided at: [place], [place] CC: SELF No primary care provider on file. No primary provider on file. documented in this encounterAdena Regional Medical Center06-04-2025 NoteHNO ID: [id number] Author: TOÑA FRANKLIN PA-C Service: ? Author Type: Physician [employer] Burner Operator Type: Progress Notes Filed: 10/10/2024 13:03 Note Text: NAME: Raeann Eckert [facility] NO.: [id number] DATE OF SERVICE: October 10, 2024 (Shanti) Some elements in this clinic note that are critical to medical decision making have been carefully reviewed and included from a prior clinic note dated: September 11, 2024 (Jana) Referring Provider: Self Referred Additional Clinicians involved in Raeann Eckert's care: DIAGNOSIS: Gliosarcoma ASSESSMENT: 58 year old woman who presented with mental status changes in November 2024 and was found to have a right partietal lobe lesion with vasogenic edema. 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 She is currently due to start and was released from [place] to return back to her home in [place]. PLAN: C6 Temodar start tomorrow - Increase dose to 360mg, D1-5 q 28 days Do not start next cycle (C7) until released by physician during follow up appointment RTC on 11/07/2024 Labs same day Annual CT Chest to monitor pulmonary nodules -scheduled 10/30/2024, just prior to C7 HPI: CASE HISTORY: Reverse Chronological Order 10/10/2024 - start C6 Temodar- 360 mg on D1-5 q 28days 09/12/2024 - Start C5 Temodar - increase to 360mg on D1-5 q 28 days 08/13/2024-08/17/2024 - C4 D1-5 q 28 Temodar 07/27/2024 - MRI Brain: Postsurgical changes of prior right parietal craniotomy and mass resection. Slight interval increase in surrounding hyperintensity with new mildly irregular enhancement along the medial margin of the resection cavity. Findings may relate to evolving posttreatment change and/or recurrent or progressive disease. Recommend continued attention on follow-up. 07/16/2024-07/20/2024 - C3 Temodar 06/19/2024-06/23/2024 - C2 Temodar 05/30/2024 - MRI Brain: Postsurgical changes of prior right parietal mass resection. No findings suggestive of recurrent or progressive disease. Mild increase in hyperintensity along the anterior and superior margins of the resection cavity may relate to evolving posttreatment changes. 05/21/2024-05/25/2024 - C1 adjuvant Temodar 320mg 5 days on (23 days off) 04/02/2024 - MRI Brain: Postoperative changes of right parietal GBM resection, without evidence of residual or recurrent tumor. Expected evolution of postoperative changes with significant interval decrease in size of resection cavity and surrounding vasogenic white matter edema in the right parietal lobe. Mild burden of presumed chronic small vessel ischemic white matter disease. 01/12/2024-03/08/2024 - Concurrent Temodar per Dr. Rebecca Oh at [facility] - held 02/23-03/01 due to low platelets 01/12/2024-03/08/2024 - 30 fractions concurrent radiation: per Dr. Alexandr Field at [facility] 01/04/2024 - Repeated sim 12/21/2023 - Scheduled to start radiation but cancelled to reportedly treat locally 12/09/2023 - Completed radiation sim 11/23/2023 - CT Brain AND MRI Brain: Post resection of a high-grade glioma from the right parietal region. This study will serve as a baseline for future follow-up. 11/23/2023 - Right Craniotomy - Case #: [id number]: Dr. Raphael Mckee at [facility] A-B. 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 Endothelial proliferation and necrosis are present. Immunohistochemistry performed on Block B2 demonstrate the lesional cells to be POSITIVE for CD10, focal GFAP, focal Olig2, and ATRX (retained, wild-type), while being NEGATIVE for IDH1 (R132H wild-type) and BRAF. P53 is overexpressed. PHH3 highlights mitotic figures up to 30/10 HPF and the Ki-67 proliferation index is up to approximately approximately 40%. Addendum: Negative IDH1 (R132H) immunohistochemistry is considered equivalent to OZK-[id number]-cfqy status in this age group, particularly in an ATRX-retained tumor. Additional studies performed: -CD68, CD163, MPO, and lysozyme highlight copious associated histiocytes, but are weak/negative in the neoplastic cells. -Vimentin is diffusely positive confirming antigenicity of the lesional cells. -BRG1 and INI1 are retained. -The remaining markers are negative: SOX10, S100, SMA, pankeratin, i (more content not included)...[facility]05-06-2025 NoteHNO ID: [id number] Author: SIMONE MITCHELL RN Service: ? Author Type: Registered Nurse Type: Progress Notes Filed: 09/11/2024 16:03 Note Text: Introduced myself to pt during today's visit. RNCC contact information, including list of important phone numbers, provided. 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 Pt verbalizes understanding. Encouraged pt to reach out with any questions or concerns. Simone Mitchell [facility] History of Present illness Narrative* Simone Mitchell RN - 09/11/2024 4:00 PM EDT Introduced myself to pt during today's visit. RNCC contact information, including list of importantphone numbers, provided. 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 Pt verbalizes understanding. Encouraged pt to reach out with any questions or concerns. Simone Mitchell RN documented [facility] Instructions* Patient Instructions* Betty Alexander - 09/11/2024 3:11 PM EDT C5 Temodar start tomorrow - Increase dose to 360mg, D1-5 q 28 days Do not start next cycle (C6) until released by physician during follow up appointment RTC on 10/10/2024 Labs same day Order CTs in future to monitor pulmonary nodules documented in this encounterA[facility]05-[facility] History of Present illness Narrative* Keith Dorsey MD - 09/11/2024 3:00 PM EDT Images from the original note were not included. NAME: Raeann Eckert CLINIC NO.: [id number] DATE OF SERVICE: September 11, 2024 (Jana) Some elements in this clinic note that are critical to medical decision making have been carefully reviewed and included from a prior clinic note dated: August 28, 2024 (Jana) Referring Provider: Self Referred Additional Clinicians involved in Raeann Eckert's care: DIAGNOSIS: Gliosarcoma ASSESSMENT: 58 year old woman who presented with mental status changes in November 2024 and was found to have a right partietal lobe lesion with vasogenic edema. 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 She is currently due to start C5 and was released from [place] to return back to her home in [place]. PLAN: C5 Temodar start tomorrow - Increase dose to 360mg, D1-5 q 28 days Do not start next cycle (C6) until released by physician during follow up appointment RTC on 10/10/2024 Labs same day Annual CT Chest to monitor pulmonary nodules - due on/around 10/31/2024, just prior to C7 Ordered on 09/11/2024 HPI: CASE HISTORY: Reverse Chronological Order 09/12/2024 - Start C5 Temodar - increase to 360mg on D1-5 q 28 days 08/13/2024-08/17/2024 - C4 D1-5 q 28 Temodar 07/27/2024 - MRI Brain: Postsurgical changes of prior right parietal craniotomy and mass resection. Slight interval increase in surrounding hyperintensity with new mildly irregular enhancement along the medial margin of theresection cavity. Findings may relate to evolving posttreatment change and/or recurrent or progressive disease. Recommend continued attention on follow-up. 07/16/2024-07/20/2024 - C3 Temodar 06/19/2024-06/23/2024 - C2 Temodar 05/30/2024 - MRI Brain: Postsurgical changes of prior right parietal mass resection. No findings suggestive of recurrent orprogressive disease. Mild increase in hyperintensity along the anterior and superior margins of theresection cavity may relate to evolving posttreatment changes. 05/21/2024-05/25/2024 - C1 adjuvant Temodar 320mg 5 days on (23 days off) 04/02/2024 - MRI Brain: Postoperative changes of right parietal GBM resection, without evidence of residual or recurrent tumor. Expected evolution of postoperative changes with significant interval decrease in size of resection cavity and surrounding vasogenic white matter edema in the right parietal lobe. Mild burden of presumed chronic small vessel ischemic white matter disease. 01/12/2024-03/08/2024 - Concurrent Temodar per Dr. Rebecca Oh at [facility] - held 02/23-03/01 due to low platelets 01/12/2024-03/08/2024 - 30 fractions concurrent radiation: per Dr. Alexandr Field at [facility] 01/04/2024 - Repeated sim 12/21/2023 - Scheduled to start radiation but cancelled to reportedly treat locally 12/09/2023 - Completed radiation sim 11/23/2023 - CT Brain & MRI Brain: Post resection of a high-grade glioma from the right parietal region. This study will serve as a baseline for future follow-up. 11/23/2023 - Right Craniotomy - Case #: [id number]: Dr. Raphael Mckee at [facility] A-B. 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 Endothelial proliferation and necrosis are present. Immunohistochemistry performed on Block B2 demonstrate the lesional cells to be POSITIVE for CD10, focal GFAP, focal Olig2, and ATRX (retained, wild-type), while being NEGATIVE for IDH1 (R132H wild-type) and BRAF. P53 is overexpressed. PHH3 highlights mitotic figures up to 30/10 HPF and the Ki-67 proliferation index is up to approximately approximately 40%. Addendum: Negative IDH1 (R132H) immunohistochemistry is considered equivalent to FUJ-rfsk-tcko status in thisage group, particularly in an ATRX-retained tumor. Additional studies performed: -CD68, CD163, MPO, and lysozyme highlight copious associated histiocytes, but are weak/negative in the neoplastic cells. -Vimentin is diffusely positive confirming antigenicity of the lesional cells. -BRG1 and INI1 are retained. -The remaining markers are negative: SOX10, S100, SMA, pankeratin, inhibin, MOC- 31, CD1a, CK5/6, MART1, p63, SF1, SALL4, GATA3, ERG, desmin, FRANCESCA, CK19, CK20, INSM1, Mono-EP4, PAX8, CAM 5.2, CD30, and CK7. 11/22/2023 - CT CAP: Chest: No evidence of intrathoracic metastatic disease. A/P: Indeterminate bilateral adrenal nodules, which likely represent adenomas. Comparison to previous outside imaging would be of value to determine stability if available. Otherwise, these can be further evaluated with contrast-enhanced MRI or CT adrenal protocol. Otherwise, no metastatic disease in the abdomen or pelvis. Additional findings [in the body of the report]. 11/22/2023 - MRI Brain/Spine: Brain: Heterogeneous solid cystic mass within the right parietal lobe measuring up to 3.5 cm. Differential considerations include a primary WORKFORCE PLANNING ANALYST malignancy such as a high-grade glioma versus metastatic disease. Associated mild mass effect with slight leftward midline shift. Cervical: No acute cervical spine abnormalities. No abnormal enhancement. Mild cervical spondylosiswithout high-grade spinal canal stenosis or neuroforaminal narrowing. Thoracic: No suspicious cord signal abnormality or pathologic enhancement. Thoracic spondylosis without high-grade spinal canal stenosis or neuroforaminal narrowing. Indeterminate small lesion withinthe T10 vertebral body. If there is clinical concern for osseous metastatic disease, this can be further evaluated with a nuclear medicine bone scan as clinically indicated. Lumbar: No acute abnormality of the lumbar spine. No cord signal abnormality or suspicious enhancement. Mild multilevel lumbar spondylosis without high-grade spinal canal stenosis or neuroforaminal narrowing. 11/22/2023 - CXR: No focal consolidation. Nodularities right lung. Recommend comparison to any prior outside imaging. In the absence of priorimaging dedicated CT scan is recommended. 11/22/2023-11/29/2024 - Admitted at [facility] - presented as a direct admission from [facility] for NSGY evaluation for a R parietal lesion with surrounding edema notedon CTH at the OSH Portions of 12/2023-07/2024 case history copied from Sarah Ward's progress note from 07/27/2024 Updated Visit, September 11, 2024: Madina returns with Nicho for a follow up. She is due to begin C5 Temodar tomorrow at an increased dose of 360mg - labs indicate she is safe to proceed. Will then follow up in 4 weeks, just prior to C6. She reports fatigue after about 1 hour of walking, vision changes, difficulty balancing, and nightmares. She also has some superficial skin wounds on her arms, most likely due to prior steroid use. Initial Visit, August 28, 2024: Raeann Eckert presents today for a Hematology and Oncology evaluation. She is transitioning her care to [place] after moving back home from [place]. She is joined today by her older sister, Nicho. Raeann is a 58 year old female who is currently on adjuvant single agent Temodar for IDH- wildtype glioblastoma. Will increase dose to 360mg daily D1-5 q 28 days for C5. She endorses current weakness in her left sided extremities and vision changes consistent with a left visual field cut. Advised she follow up with an handle sewer. Will order CT Chest to be completed annually to follow pulmonary nodules. Prior History from Sarah Ward's Progress Note on 07/27/2024: HPI: Tiffany Eckert is a 58 y.o. female with a right parietal glioblastoma (IDH-wildtype) who has a PMHx of HTN and CAD. The patient initially presented on 11/22/2023 with headaches, L sided weakness, and ataxia. She initially felt her left sided weakness was secondary to a left sided shoulder injury. An MRI brain showed a lesion in the R parietal lobe, and she subsequently underwent surgical intervention on 11/23/23 with pathology consistent of a glioblastoma. She completed concurrent chemoradiation on 03/07/24. Subjective: The patient presents to clinic accompanied by a long time friend. She reports that she is unsure ofOptune; we discussed that she can hold off for now and wait until we see changes on her MRI since she is hesitant to start; she is agreeable and preferable to this plan. Dr. Oh discussed that her imaging is currently stable and we will repeat imaging in 2 months. We will see her back in 1 month for clinical follow up. Assessment and Plan: // Right Parietal Glioblastoma/Gliosarcoma - MRI done today is stable - repeat MRI with perfusion in 2 months - recently completed cycle 3 of TMZ - we can alternate her visits with in person and TM // Temodar Use - continue TMZ 150 mg/m2 5 days on, 23 days off. - Take Zofran 8mg 1 hour beforehand. - Take Temodar with 8oz glass of water - assessed adherence, addressed barriers to treatment, and evaluated toxicities - CBC and CMP reviewed. Q2W labs - Continue bowel regimen - Fatigue is expected on treatment // Seizure Prophylaxis - continue Keppra 500mg BID REVIEW OF SYSTEMS Per HPI and otherwise negative by full review of organ systems. ECOG PERFORMANCE STATUS: 1 PHYSICAL EXAMINATION: Vitals: BP 126/82 Pulse 103 Temp (Src) 97.1 (Temporal) Resp 16 Ht 5' 4.213 (1.63m) Wt 227 lb 4.7 oz (103.1kg) SpO2 97% BMI 38.76 kg/(m^2). Body surface area is 2.16 meters squared. Exam limited to gross visualization where appropriate. Gen.: This is an age-appropriate patient in no acute distress. Head: Appears atraumatic with no visible lesions. Eyes: Pupils equally round and reactive to light, extraocular muscles are intact. Neck: Supple. Respiratory: Appears to be respiring comfortably. Neurologic: Nonfocal to gross visualization. Alert and oriented 3. Psychiatric: No evidence of inappropriate anxiety or depression. Skin: Visible areas of skin without rash, lesions, wounds or petechiae. ALLERGIES: ALLERGIES Allergen Reactions Hydrocodone Hives HIVES, itching, red rash all over body. Oxycodone Hives, Rash MEDICATIONS: Acetaminophen 500 mg cap Take by mouth. fluticasone propionate (FLONASE NASAL) Use in the nose. aspirin, enteric coated (ASPIRIN, ENTERIC COATED) 81 mg EC tablet Take 81 mg by mouth once daily. atenolol (TENORMIN) 50 mg tablet Take 50 mg by mouth once daily. For 30 days atorvastatin (LIPITOR) 80 mg tablet Take 80 mg by mouth once daily. busPIRone (BUSPAR) 10 mg tablet Take 10 mg by mouth two times a day. citalopram (CELEXA) 40 mg tablet Take 40 mg by mouth once daily. For 30 days ezetimibe (ZETIA) 10 mg tablet Take 10 mg by mouth once daily. omeprazole (PRILOSEC) 20 mg capsule Take 20 mg by mouth once daily. lisinopril (ZESTRIL) 5 mg tablet Take 5 mg by mouth once daily. For 30 days ondansetron orally disintegrating (ZOFRAN ODT) 4 mg disintegrating tablet Take 8 mg by mouth every 8 hours as needed. prochlorperazine (COMPAZINE) 10 mg tablet Take 10 mg by mouth every 8 hours as needed. senna-docusate (SENNA-S) 8.6-50 mg per tablet Take 1 tablet by mouth two times a day. levETIRAcetam (KEPPRA) 500 mg tablet Take 1 tablet by mouth two times a day. temozolomide (TEMODAR) 180 mg capsule Take 2 capsules (360 mg) by mouth once daily for 5 days. LABORATORY VALUES: WBC (k/uL) Date Value 09/11/2024 4.25 RBC (m/uL) Date Value 09/11/2024 3.98 Hemoglobin (g/dL) Date Value 09/11/2024 12.8 Hematocrit (%) Date Value 09/11/2024 37.5 MCV (fL) Date Value 09/11/2024 94.2 MCH (pg) Date Value 09/11/2024 32.2 MCHC (g/dL) Date Value 09/11/2024 34.1 RDW-CV (%) Date Value 09/11/2024 13.5 Platelet Count (k/uL) Date Value 09/11/2024 174 MPV (fL) Date Value 09/11/2024 8.7 (L) Glucose (mg/dL) Date Value 09/11/2024 141 (H) BUN (mg/dL) Date Value 09/11/2024 10 Creatinine (mg/dL) Date Value 09/11/2024 0.79 Sodium (mmol/L) Date Value 09/11/2024 138 Potassium (mmol/L) Date Value 09/11/2024 4.4 Chloride (mmol/L) Date Value 09/11/2024 101 CO2 (mmol/L) Date Value 09/11/2024 26 Protein, Total (g/dL) Date Value 09/11/2024 7.1 Albumin (g/dL) Date Value 09/11/2024 3.9 Calcium, Total (mg/dL) Date Value 09/11/2024 10.0 Alkaline Phosphatase (U/L) Date Value 09/11/2024 137 (H) Bilirubin, Total (mg/dL) Date Value 09/11/2024 0.3 AST (U/L) Date Value 09/11/2024 17 ALT (U/L) Date Value 09/11/2024 19 DIAGNOSIS: (C71.9) GBM (glioblastoma multiforme) (HCC) (primary encounter diagnosis) Plan: temozolomide (TEMODAR) 180 mg capsule, CT CHEST WO IVCON (R91.8) Pulmonary nodules/lesions, multiple Plan: CT CHEST WO IVCON PAST MEDICAL HISTORY Diagnosis Date Glioblastoma (HCC) Hypertension Lung nodules PAST SURGICAL HISTORY Procedure Laterality Date LIGATE FALLOPIAN TUBE PAST SURGICAL HISTORY OF Rt Craniotomy for tumor resection with navigation and neuromonitoring PT ED HEART AND VASCULAR x2 Social History Tobacco Use Smoking status: Former Types: Cigarettes Smokeless tobacco: Never Vaping Use Vaping status: current everyday user Substances: Nicotine, Flavoring Devices: Disposable Substance Use Topics Alcohol use: Not Currently Drug use: Never FAMILY HISTORY Problem Relation Age of Onset Liver Cancer Mother Hypertension Mother Prostate Cancer Father Skin Cancer Father No Known Problems Sister Hypertension Brother Skin Cancer Brother Heart disease Brother Liver Disease Maternal Grandmother Diabetes Maternal Grandfather Heart disease Maternal Grandfather Diabetes Paternal Grandfather I spent a total of 30 minutes on the date of the service which included preparing to see the patient, [id number] patient care, completing clinical documentation, obtaining and/or reviewing separately obtained history, performing a medically appropriate examination, counseling and educating the pat ient/family/caregiver, ordering medications, tests, or procedures, independently interpreting results (not separately reported), communicating results to the patient/family/caregiver, and care coordination (not separately reported). Keith Dorsey MD, CPE Hematology and Oncology Services Provided at: [place], [place] Scribe Attestation: This note was scribed by Betty Alexander on September 11, 2024 under the direction and supervision of Dr. Keith Dorsey. I attest that all of the information documented is correct to the best of my knowledge. Provider Attestation: I, Keith Dorsey MD, attest that all information documented by the above scribe is correct, and was supervised by me and under my direction. CC: SELF No primary care provider on file. No primary provider on file. documented in this encounterAden[facility]05-06-[facility]25 NoteHNO ID: [id number] Author: KEITH DORSEY MD Service: ? Author Type: Physician Type: Progress Notes Filed: 09/12/2024 12:38 Note Text: NAME: Raeann Eckert CLINIC NO.: [id number] DATE OF SERVICE: September 11, 2024 (Jana) Some elements in this clinic note that are critical to medical decision making have been carefully reviewed and included from a prior clinic note dated: August 28, 2024 (Jana) Referring Provider: Self Referred Additional Clinicians involved in Raeann Eckert's care: DIAGNOSIS: Gliosarcoma ASSESSMENT: 58 year old woman who presented with mental status changes in November 2024 and was found to have a right partietal lobe lesion with vasogenic edema. 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 She is currently due to start C5 and was released from [place] to return back to her home in [place]. PLAN: C5 Temodar start tomorrow - Increase dose to 360mg, D1-5 q 28 days Do not start next cycle (C6) until released by physician during follow up appointment RTC on 10/10/2024 Labs same day Annual CT Chest to monitor pulmonary nodules - due on/around 10/31/2024, just prior to C7 Ordered on 09/11/2024 HPI: CASE HISTORY: Reverse Chronological Order 09/12/2024 - Start C5 Temodar - increase to 360mg on D1-5 q 28 days 08/13/2024-08/17/2024 - C4 D1-5 q 28 Temodar 07/27/2024 - MRI Brain: Postsurgical changes of prior right parietal craniotomy and mass resection. Slight interval increase in surrounding hyperintensity with new mildly irregular enhancement along the medial margin of the resection cavity. Findings may relate to evolving posttreatment change and/or recurrent or progressive disease. Recommend continued attention on follow-up. 07/16/2024-07/20/2024 - C3 Temodar 06/19/2024-06/23/2024 - C2 Temodar 05/30/2024 - MRI Brain: Postsurgical changes of prior right parietal mass resection. No findings suggestive of recurrent or progressive disease. Mild increase in hyperintensity along the anterior and superior margins of the resection cavity may relate to evolving posttreatment changes. 05/21/2024-05/25/2024 - C1 adjuvant Temodar 320mg 5 days on (23 days off) 04/02/2024 - MRI Brain: Postoperative changes of right parietal GBM resection, without evidence of residual or recurrent tumor. Expected evolution of postoperative changes with significant interval decrease in size of resection cavity and surrounding vasogenic white matter edema in the right parietal lobe. Mild burden of presumed chronic small vessel ischemic white matter disease. 01/12/2024-03/08/2024 - Concurrent Temodar per Dr. Rebecca Oh at [facility] - held 02/23-03/01 due to low platelets 01/12/2024-03/08/2024 - 30 fractions concurrent radiation: per Dr. Alexandr Field at [facility] 01/04/2024 - Repeated sim 12/21/2023 - Scheduled to start radiation but cancelled to reportedly treat locally 12/09/2023 - Completed radiation sim 11/23/2023 - CT Brain AND MRI Brain: Post resection of a high-grade glioma from the right parietal region. This study will serve as a baseline for future follow-up. 11/23/2023 - Right Craniotomy - Case #: [id number]: Dr. Raphael Mckee at [facility] A-B. 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 Endothelial proliferation and necrosis are present. Immunohistochemistry performed on Block B2 demonstrate the lesional cells to be POSITIVE for CD10, focal GFAP, focal Olig2, and ATRX (retained, wild-type), while being NEGATIVE for IDH1 (R132H wild-type) and BRAF. P53 is overexpressed. PHH3 highlights mitotic figures up to 30/10 HPF and the Ki-67 proliferation index is up to approximately approximately 40%. Addendum: Negative IDH1 (R132H) immunohistochemistry is considered equivalent to [id number]-magz status in this age group, particularly in an ATRX-retained tumor. Additional studies performed: -CD68, CD163, MPO, and lysozyme highlight copious associated histiocytes, but are weak/negative in the neoplastic cells. -Vimentin is diffusely positive confirming antigenicity of the lesional cells. -BRG1 and INI1 are retained. -The remaining markers are negative: SOX10, S100, SMA, pankeratin, inhibin, MOC-31, CD1a, CK5/6, MAR (more content not included)...[facility]04-22-2025 NoteHNO ID: [id number] Author: KEITH DORSEY MD Service: ? Author Type: Physician Type: Progress Notes Filed: 09/01/2024 06:46 Note Text: NAME: Raeann Eckert [facility] NO.: [id number] DATE OF SERVICE: August 28, 2024 (Jana) Referring Provider: Self Referred Consultation requested by Self Referred for an opinion regarding Ms. Raeann Eckert, and my final recommendations will be communicated back to the requesting physician by way of shared medical record or letter via [place] mail. Additional Clinicians involved in Raeann Eckert's care: DIAGNOSIS: gliosarcoma ASSESSMENT: 58 year old woman who presented with mental status changes in November 2024 and was found to have a right partietal lobe lesion with vasogenic edema. 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 She is currently due to start C5 and was released from [place] to return back to her home in [place]. PLAN: RTC on 09/10/2024 Labs same day C5 Temodar due to start 09/10/2024 - Increase dose to 360mg, D1-5, q 28 Do not start C5 until released by physician during appointment Order CTs in future to monitor pulmonary nodules HPI: CASE HISTORY: Reverse Chronological Order 08/13/2024-08/17/2024 - C4 Temodar 07/27/2024 - MRI Brain: Postsurgical changes of prior right parietal craniotomy and mass resection. Slight interval increase in surrounding hyperintensity with new mildly irregular enhancement along the medial margin of the resection cavity. Findings may relate to evolving posttreatment change and/or recurrent or progressive disease. Recommend continued attention on follow-up. 07/16/2024-07/20/2024 - C3 Temodar 06/19/2024-06/23/2024 - C2 Temodar 05/30/2024 - MRI Brain: Postsurgical changes of prior right parietal mass resection. No findings suggestive of recurrent or progressive disease. Mild increase in hyperintensity along the anterior and superior margins of the resection cavity may relate to evolving posttreatment changes. 05/21/2024-05/25/2024 - C1 adjuvant Temodar 320mg 5 days on (23 days off) 04/02/2024 - MRI Brain: Postoperative changes of right parietal GBM resection, without evidence of residual or recurrent tumor. Expected evolution of postoperative changes with significant interval decrease in size of resection cavity and surrounding vasogenic white matter edema in the right parietal lobe. Mild burden of presumed chronic small vessel ischemic white matter disease. 01/12/2024-03/08/2024 - Concurrent Temodar per Dr. Rebecca Oh at [facility] - held 02/23-03/01 due to low platelets 01/12/2024-03/08/2024 - 30 fractions concurrent radiation: per Dr. Alexandr Field at [facility] 01/04/2024 - Repeated sim 12/21/2023 - Scheduled to start radiation but cancelled to reportedly treat locally 12/09/2023 - Completed radiation sim 11/23/2023 - CT Brain AND MRI Brain: Post resection of a high-grade glioma from the right parietal region. This study will serve as a baseline for future follow-up. 11/23/2023 - Right Craniotomy - Case: [id number]: Dr. Raphael Mckee at [facility] A-B. 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 Endothelial proliferation and necrosis are present. Immunohistochemistry performed on Block B2 demonstrate the lesional cells to be POSITIVE for CD10, focal GFAP, focal Olig2, and ATRX (retained, wild-type), while being NEGATIVE for IDH1 (R132H wild-type) and BRAF. P53 is overexpressed. PHH3 highlights mitotic figures up to 30/10 HPF and the Ki-67 proliferation index is up to approximately approximately 40%. Addendum: Negative IDH1 (R132H) immunohistochemistry is considered equivalent to EIF-[id number]-xlph status in this age group, particularly in an ATRX-retained tumor. Additional studies performed: -CD68, CD163, MPO, and lysozyme highlight copious associated histiocytes, but are weak/negative in the neoplastic cells. -Vimentin is diffusely positive confirming antigenicity of the lesional cells. -BRG1 and INI1 are retained. -The remaining markers are negative: SOX10, S100, SMA, pankeratin, inhibin, MOC-31, CD1a, CK5/6, MART1, p63, SF1, SALL4, GATA3, ERG, desmin, FRANCESCA, CK19, CK20, INSM1, Mono-EP4, PAX8, CAM 5.2, CD30, and CK7. 07/ (more content not included)...[facility]04-02-2025 Telephone encounter Note* Telephone Encounter - Roxana Driver APRN.CNP - 08/08/2024 1:31 PM EDT Please request all MRI Brain from [facility]. Roxana Driver APRN.CNP [facility] Work Phone: 1(456) 688-224904-02-2025 Miscellaneous Notes* Telephone Encounter - Roxana Driver APRN.CNP - 08/08/2024 1:31 PM EDT Please request all MRI Brain from [facility]. Roxana Driver APRN.CNP * Telephone Encounter - Roxana Driver APRN.CNP - 08/08/2024 1:26 PM EDT Images from the original note were not included. Time Frame: COREY < 1 week If unable to obtain an appointment within requested time frame, please contact appropriate healthcare specialist for scheduling access Provider: Danny Hunt Malkin, Torres, Dhawan, Bonder Referring: self Please instruct patient to hand carry/ upload images prior to appt Dx: GBM Patient: Raeann Liu Address: Raeann Liu [id number] [place] [address] Per Triage: Patient expectations: Second opinion Tumor Specifics: Location: brain Pathology: Previous Evaluations: MRI w/wo contrast Previous Treatments: Tumor Surgery: Yes Other Surgeries: No Gamma Knife: No Radiation: Yes Chemotherapy: Yes Immunotherapy: No Research trials: No Roxana Driver APRN.CNP August 08, 2024 * Telephone Encounter - Greg Elli Radha Lai - 08/08/2024 12:38 PM EDT Images from the original note were not included. Records received from [facility], Sarah Ward Ph. [phone], Fx. [phone]. MRI reports included. Pt added to DB. Images Viewable in Estech. DB not saving, will attempt again later: [facility] encounter Note * Telephone Encounter - Roxana Driver APRN.CNP - 08/08/2024 1:26 PM EDT Images from the original note were not included. Time Frame: COREY < 1 week If unable to obtain an appointment within requested time frame, please contact appropriate healthcare specialist for scheduling access Provider: Danny Hunt Malkin, Torres, Dhawan, Bonder Referring: self Please instruct patient to hand carry/ upload images prior to appt Dx: GBM Patient: Raeann Liu Address: Raeann Liu [id number] [place] [address] Per Triage: Patient expectations: Second opinion Tumor Specifics: Location: brain Pathology: Previous Evaluations: MRI w/wo contrast Previous Treatments: Tumor Surgery: Yes Other Surgeries: No Gamma Knife: No Radiation: Yes Chemotherapy: Yes Immunotherapy: No Research trials: No Roxana Driver APRN.CNP August 08, 2024 [facility]04-02-2025 Telephone encounter Note* Telephone Encounter - Elli Garza - 08/08/2024 12:38 PM EDT Images from the original note were not included. Records received from [facility], Sarah Ward Ph. [phone], Fx. [phone]. MRI reports included. Pt added to DB. Images Viewable in Estech. DB not saving, will attempt again later: [facility]12-21-2022 NotePROCEDURE: XR FOOT LT MIN 3 VIEWS HISTORY: Injury of right foot ; pain, bruising, swelling over dorsum of foot after dropping object on foot COMPARISON: None. FINDINGS: BONES:No fracture, acute abnormality, or significant arthropathy. SOFT TISSUES:Mild dorsal soft tissue swelling. No radiopaque foreign body. EFFUSION:None visible. OTHER: Negative. IMPRESSION: 1. No acute bone abnormality. Electronically authenticated by: JUNITO OCHOA Date: 2022-04-28 12:58[facility] note* Diagnosis GBM (glioblastoma multiforme) (HCC)- Primary Malignant neoplasm of brain, unspecified site documented in this encounter [facility] note* Diagnosis GBM (glioblastoma multiforme) (HCC)- Primary Malignant neoplasm of brain, unspecified site Pulmonary nodules/lesions, multiple Other nonspecific abnormal finding of lung field documented in this encounter [facility] note* Diagnosis GBM (glioblastoma multiforme) (HCC)- Primary Malignant neoplasm of brain, unspecified site Pulmonary nodules/lesions, multiple Other nonspecific abnormal finding of lung field documented in this encounter [facility] note* Diagnosis GBM (glioblastoma multiforme) (HCC) Malignant neoplasm of brain, unspecified site Pulmonary nodules/lesions, multiple Other nonspecific abnormal finding of lung field documented in this encounter [facility] note* Diagnosis GBM (glioblastoma multiforme) (HCC)- Primary Malignant neoplasm of brain, unspecified site Pulmonary nodules/lesions, multiple Other nonspecific abnormal finding of lung field Anxiety neurosis Anxiety state, unspecified Encounter for antineoplastic chemotherapy Current moderate episode of major depressive disorder without prior episode (HCC) Nonintractable epilepsy without status epilepticus, unspecified epilepsy type (HCC) Hypertensive heart and chronic kidney disease with heart failure and stage 1 through stage 4 chronic kidney disease, or unspecified chronic kidney disease (HCC) Hyperlipidemia, unspecified hyperlipidemia type Gastro-esophageal reflux disease without esophagitis Esophageal reflux documented in this encounter [facility] note* Diagnosis GBM (glioblastoma multiforme) (HCC) Malignant neoplasm of brain, unspecified site Pulmonary nodules/lesions, multiple Other nonspecific abnormal finding of lung field documented in this encounter [facility] note* Diagnosis GBM (glioblastoma multiforme) (HCC)- Primary Malignant neoplasm of brain, unspecified site documented in this encounter [facility] note* Diagnosis GBM (glioblastoma multiforme) (HCC)- Primary Malignant neoplasm of brain, unspecified site [facility] (glioblastoma multiforme) (HCC) Malignant neoplasm of brain, unspecified site Encounter for antineoplastic chemotherapy Dry skin Other specified disease of sebaceous glands Allergic rhinitis, unspecified seasonality, unspecified trigger documented in this encounter [facility] Summary Purpose Family History Description Last Updated Maternal history of oncologic [...] Records FoundNo Advanced Directives Records FoundNo Advanced Directiv es Records Found Reason for Referral No Reason for Referral RecordedNo Reason for Referral RecordedNo Reason for Referral RecordedNo Reason for Referral RecordedNo Reason for Referral Recorded No Reason for Referral RecordedNo Reason for Referral RecordedNo Reason for Referral RecordedNo Reason for Referral Recorded Assessments Findings Encounter Date Anxiety disorder NOS Medical New Patient with Laura Mccone [employer] 09/14/2018 Benign essential hypertension Medical Ne w Patient with Laura Mccone [employer] [facility] 09/14/2018 Coronary artery disease Medical New [place] ent with Laura Mccone [employer] [facility] 09/14/2018 Diabetes Risk Test Score was five score 09/14/2018 Medical New Patient with Laura Sean [employer] [facility] 09/14/2018 Hyperlipidemia Medical New Patient with Laura Mccone [employer] [facility] 09/14/2018 Obesity due to excess calories Medical N ew Patient with Laura Mccone [employer] 09/14/2018 Routine history and physical Medical New Patient with Laura Mccone [employer] 09/14/2018 Z68.32 - Body mass index (BM I) 32.0-32.9, adult Medical New Patient with Laura Mccone [employer] 09/14/2018 Findings Encounter Date Recurrent major depression i n full remission BH Established Patient with Princess BENSON 04/25/2019 Arthralgia of right hand Medical Establi shed Patient with Laura Sean [employer] [facility] 04/25/2019 Depression Medical Established Patient with Laurafranklin Ramirez [employer] [facility] 04/25/2019 Fagerstrom Score was 0 Medical Establish ed Patient with Laura Nye [employer] [facility] 04/25/2019 Obesity due to excess calories Medical E stablished Patient with Laura Mccone [employer] 04/25/2019 Onychomycosis of the right 1st toenail M edical Established Patient with Laura Mccone [employer] 04/25/2019 PHQ-9: total score was three 04/25/2019 Medical Established Patient with Laura Sean [employer] 04/25/2019 Z68.31 - Body mass index (BM I) 31.0-31.9 adult Medical Established Patient with Laura Mccone [employer] 04/25/2019 Anxiety disorder NOS Medical New Patient with Laura Sean [employer] [facility] 09/14/2018 Benign essential hypertension Medical Ne w Patient with Laura Mccone [employer] 09/14/2018 Coronary artery disease Medical New [place] ent with Laura Mccone [employer] [facility] 09/14/2018 Diabetes Risk Test Score was five score 09/14/2018 Medical New Patient with Laura Mccone [employer] [facility] 09/14/2018 Hyperlipidemia Medical New Patient with Laura Sean [employer] [facility] 09/14/2018 Obesity due to excess calories Medical N ew Patient with Laura Mccone [employer] 09/14/2018 Routine history and physical Medical New Patient with Laura Nye [employer] 09/14/2018 Z68.32 - Body mass index (BM I) 32.0-32.9, adult Medical New Patient with Laura Sean [employer] 09/14/2018 Findings Encounter Date Upper respiratory infection Telemedicine with Suzi Martinez [facility] 09/24/2019 Recurrent major depression i n full remission BH Established Patient with Princess PUENTE-S 04/25/2019 Arthralgia of right hand Medical Establi shed Patient with Laura Sean [employer] [facility] 04/25/2019 Depression Medical Established Patient with Laura Sean [employer] [facility] 04/25/2019 Fagerstrom Score was 0 Medical Establish ed Patient with Laura Sean [employer] [facility] 04/25/2019 Obesity due to excess calories Medical E stablished Patient with Laura Mccone [employer] 04/25/2019 Onychomycosis of the right 1st toenail M edical Established Patient with Laura Mccone [employer] 04/25/2019 PHQ-9: total score was three 04/25/2019 Medical Established Patient with Laura Sean [employer] [facility] 04/25/2019 Z68.31 - Body mass index (BM I) 31.0-31.9 adult Medical Established Patient with Laura Ramirez [employer] [facility] 04/25/2019 Anxiety disorder NOS Medical New Patient with Laura Nye [employer] [facility] 09/14/2018 Benign essential hypertension Medical Ne w Patient with Laura Sean [employer] [facility] 09/14/2018 Coronary artery disease Medical New [place] ent with Laura Nye [employer] [facility] 09/14/2018 Diabetes Risk Test Score was five score 09/14/2018 Medical New Patient with Laura Mccone [employer] [facility] 09/14/2018 Hyperlipidemia Medical New Patient with Laura Sean [employer] [facility] 09/14/2018 Obesity due to excess calories Medical N ew Patient with Laura Sean [employer] [facility] 09/14/2018 Routine history and physical Medical New Patient with Laura Ramirez [employer] [facility] 09/14/2018 Z68.32 - Body mass index (BM I) 32.0-32.9, adult Medical New Patient with Laura Ramirez [employer] [facility] 09/14/2018 Findings Encounter Date Body mass index Telemedicine with An rivka Martinez [facility] 11/16/2019 Depression Telemedicine with An rivka Martinez [facility] 11/16/2019 Hypertension Telemedicine with An rivka Martinez [facility] 11/16/2019 Obesity due to excess calories Telemedic ine with Suzi Martinez [facility] 11/16/2019 Upper respiratory infection Telemedicine with Suzi Martinez [facility] 09/24/2019 Recurrent major depression i n full remission BH Established Patient with Princess BENSON 04/25/2019 Arthralgia of right hand Medical Establi shed Patient with Laura Sean [employer] [facility] 04/25/2019 Depression Medical Established Patient with Laura Nye [employer] [facility] 04/25/2019 Fagerstrom Score was 0 Medical Establish ed Patient with Laura Sean [employer] [facility] 04/25/2019 Obesity due to excess calories Medical E stablished Patient with Laura Sean [employer] [facility] 04/25/2019 Onychomycosis of the right 1st toenail M edical Established Patient with Laura Sean [employer] [facility] 04/25/2019 PHQ-9: total score was three 04/25/2019 Medical Established Patient with Laura Sean [employer] [facility] 04/25/2019 Z68.31 - Body mass index (BM I) 31.0-31.9 adult Medical Established Patient with Laura Ramirez [employer] [facility] 04/25/2019 Anxiety disorder NOS Medical New Patient with Laura Ramirez [employer] 09/14/2018 Benign essential hypertension Medical Ne w Patient with Laura Sean [employer] [facility] 09/14/2018 Coronary artery disease Medical New [place] ent with Laura Ramirez [employer] [facility] 09/14/2018 Diabetes Risk Test Score was five score 09/14/2018 Medical New Patient with Laura Ramirez [employer] [facility] 09/14/2018 Hyperlipidemia Medical New Patient with Laura Sean [employer] [facility] 09/14/2018 Obesity due to excess calories Medical N ew Patient with Laura Sean [employer] [facility] 09/14/2018 Routine history and physical Medical New Patient with Laura Ramirez [employer] [facility] 09/14/2018 Z68.32 - Body mass index (BM I) 32.0-32.9, adult Medical New Patient with Laura Ramirez [employer] [facility] 09/14/2018 Findings Encounter Date Adjustment disorder with anxiety Tele behavioral Health with Jo Velazquez [facility] 04/30/2020 Mild recurrent major depression Teleb ehavioral Health with Jo Velazquez [facility] 04/30/2020 Body mass index Telemedicine Establi sted Patient with Thalia Block [facility] 04/30/2020 Exposure to a viral disease Telemedicine Establisted Patient with Thalia Block [facility] 04/30/2020 Obesity due to excess calories Telemedic ine Establisted Patient with Thalia Block CNP 04/30/2020 Body mass index Telemedicine with Suzi dalton [facility] 11/16/2019 Depression Telemedicine with Suzi dalton [facility] 11/16/2019 Hypertension Telemedicine with Suzi dalton [facility] 11/16/2019 Obesity due to excess calories Telemedicine with Suzi Martinez [facility] 11/16/2019 Upper respiratory infection Telemedicine with Mary Martinez [facility] 09/24/2019 Recurrent major depression i n full remission BH Established Patient with Princess PUENTE-S 04/25/2019 Arthralgia of right hand Medical Establi shed Patient with Laura Sean [employer] [facility] 04/25/2019 Depression Medical Established Patient with Laura Nye [employer] [facility] 04/25/2019 Fagerstrom Score was 0 Medical Establish ed Patient with Laura Ramirez [employer] [facility] 04/25/2019 Obesity due to excess calories Medical E stablished Patient with Laura Sean [employer] [facility] 04/25/2019 Onychomycosis of the right 1 st toenail Medical Established Patient with Laura Ramirez [employer] [facility] 04/25/2019 PHQ-9: total score was three 04/25/2019 Medical Established Patient with Laura Ramirez [employer] [facility] 04/25/2019 Z68.31 - Body mass index (BM I) 31.0-31.9 adult Medical Established Patient with Laura Ramirez [employer] [facility] 04/25/2019 Anxiety disorder NOS Medical New Patient with Laura Ramirez [employer] [facility] 09/14/2018 Benign essential hypertension Medical Ne w Patient with Laura Sean [employer] [facility] 09/14/2018 Coronary artery disease Medical New [place] ent with Laura Ramirez [employer] [facility] 09/14/2018 Diabetes Risk Test Score was five score 09/14/2018 Medical New Patient with Laura Ramirez [employer] [facility] 09/14/2018 Hyperlipidemia Medical New Patient with Laura Ramirez [employer] [facility] 09/14/2018 Obesity due to excess calories Medical N ew Patient with Laura Nye [employer] [facility] 09/14/2018 Routine history and physical Medical New Patient with Laura Ramirez [employer] [facility] 09/14/2018 Z68.32 - Body mass index (BM I) 32.0-32.9, adult Medical New Patient with Laura Ramirez [employer] [facility] 09/14/2018 Findings Encounter Date Body mass index Telemedicine Establi sted Patient with Suzi Martinez [facility] 06/27/2020 Hypertension Telemedicine Establi sted Patient with Suzi Martinez [employer] 06/27/2020 Adjustment disorder with anxiety Tele behavioral Health with Jo Velazquez [facility] 04/30/2020 Mild recurrent major depression Teleb ehavioral Health with Jo Velazquez [facility] 04/30/2020 Body mass index Telemedicine Establi sted Patient with Thalia Umair [employer] 04/30/2020 Exposure to a viral disease Telemedicine Establisted Patient with Thalia Umair [employer] [facility] 04/30/2020 Obesity due to excess calories Telemedic ine Establisted Patient with Thalia Umair [employer] [facility] 04/30/2020 Body mass index Telemedicine with Suzi Mijares e [facility] 11/16/2019 Depression Telemedicine with Suzi dalton [facility] 11/16/2019 Hypertension Telemedicine with Suzi Mijares e [employer] [facility] 11/16/2019 Obesity due to excess calories Telemedicine with Suzi Martinez [employer] 11/16/2019 Upper respiratory infection Telemedicine with Mary Martinez [employer] [facility] 09/24/2019 Recurrent major depression i n full remission BH Established Patient with Princess PUENTE-S 04/25/2019 Arthralgia of right hand Medical Establi shed Patient with Laura Nye [employer] [facility] 04/25/2019 Depression Medical Established Patient with Laura Ramirez [employer] [facility] 04/25/2019 Fagerstrom Score was 0 Medical Establish ed Patient with Laura Ramirez [employer] [facility] 04/25/2019 Obesity due to excess calories Medical E stablished Patient with Laura Nye [employer] 04/25/2019 Onychomycosis of the right 1 st toenail Medical Established Patient with Laura Nye [employer] 04/25/2019 PHQ-9: total score was three 04/25/2019 Medical Established Patient with Laura Nye [employer] 04/25/2019 Z68.31 - Body mass index (BM I) 31.0-31.9 adult Medical Established Patient with Laura Nye [employer] 04/25/2019 Anxiety disorder NOS Medical New Patient with Laura Nye [employer] [facility] 09/14/2018 Benign essential hypertension Medical Ne w Patient with Laura Sean [employer] 09/14/2018 Coronary artery disease Medical New [place] ent with Laura Ramirez [employer] [facility] 09/14/2018 Diabetes Risk Test Score was five score 09/14/2018 Medical New Patient with Laura Nye [employer] 09/14/2018 Hyperlipidemia Medical New Patient with Laura Nye [employer] 09/14/2018 Obesity due to excess calories Medical N ew Patient with Laura Nye [employer] 09/14/2018 Routine history and physical Medical New Patient with Laura Ramirez [employer] [facility] 09/14/2018 Z68.32 - Body mass index (BM I) 32.0-32.9, adult Medical New Patient with Laura Ramirez [employer] [facility] 09/14/2018 Findings Encounter Date Mild recurrent major depress ion with anxiety BH Established Patient with Laverne Garrett [facility] 07/03/2020 Diabetes Risk Test Score was five score 07/03/2020 Medical Established Patient with Suzi Martinez [employer] [facility] 07/03/2020 Hypertension Medical Established Patient with Suzi Martinez [employer] [facility] 07/03/2020 Obesity due to excess calories Medical E stablished Patient with Suzi Martinez [employer] [facility] 07/03/2020 Z68.36 - Body mass index [BM I] 36.0-36.9, adult Medical Established Patient with Suzi Martinez [employer] [facility] 07/03/2020 Body mass index Telemedicine Establi sted Patient with Suzi Martinez [employer] [facility] 06/27/2020 Hypertension Telemedicine Establi sted Patient with Suzi Michelle [employer] [facility] 06/27/2020 Adjustment disorder with anxiety [facility] behavioral Health with Jo HICKS 04/30/2020 Mild recurrent major depression [facility] Teleb ehavioral Health with Jo HICKS 04/30/2020 Body mass index Telemedicine Establi sted Patient with Thalia Metzer [employer] 04/30/2020 Exposure to a viral disease Telemedicine Establisted Patient with Thalia Umair [employer] 04/30/2020 Obesity due to excess calories Telemedic ine Establisted Patient with Thalia Umair [employer] 04/30/2020 Body mass index Telemedicine with Suzi Mijares e [employer] 11/16/2019 Depression Telemedicine with Suzi Mijares e [employer] 11/16/2019 Hypertension Telemedicine with Suzi Mijares e [employer] 11/16/2019 Obesity due to excess calories Telemedicine with Suzi Martinez [employer] 11/16/2019 Upper respiratory infection Telemedicine with Mary Martinez [employer] 09/24/2019 Recurrent major depression i n full remission BH Established Patient with Princess BENSON 04/25/2019 Arthralgia of right hand Medical Establi shed Patient with Laura Mccone [employer] 04/25/2019 Depression Medical Established Patient with Laura Sean [employer] 04/25/2019 Fagerstrom Score was 0 Medical Establish ed Patient with Laura Mccone [employer] 04/25/2019 Obesity due to excess calories Medical E stablished Patient with Laura Mccone [employer] 04/25/2019 Onychomycosis of the right 1 st toenail Medical Established Patient with Laura Sean [employer] 04/25/2019 PHQ-9: total score was three 04/25/2019 Medical Established Patient with Laura Mccone [employer] 04/25/2019 Z68.31 - Body mass index (BM I) 31.0-31.9 adult Medical Established Patient with Laura Sean [employer] 04/25/2019 Anxiety disorder NOS Medical New Patient with Laura Mccone [employer] 09/14/2018 Benign essential hypertension Medical Ne w Patient with Laura Mccone [employer] 09/14/2018 Coronary artery disease Medical New [place] ent with Laura Mccone [employer] 09/14/2018 Diabetes Risk Test Score was five score 09/14/2018 Medical New Patient with Laura Mccone [employer] 09/14/2018 Hyperlipidemia Medical New Patient with Laura Sean [employer] 09/14/2018 Obesity due to excess calories Medical N ew Patient with Laura Ramirez [employer] 09/14/2018 Routine history and physical Medical New Patient with Laura Ramirez [employer] 09/14/2018 Z68.32 - Body mass index (BM I) 32.0-32.9, adult Medical New Patient with Laura Ramirez [employer] 09/14/2018 Findings Encounter Date Recurrent major depression i n full remission BH Established Patient with Princess PUENTE-S 04/25/2019 Depression Medical Established Patient with Laura Ramirez [employer] 04/25/2019 Fagerstrom Score was 0 Medical Establish ed Patient with Laura Ramirez [employer] 04/25/2019 Obesity due to excess calories Medical E stablished Patient with Laura Sean [employer] 04/25/2019 PHQ-9: total score was three 04/25/2019 Medical Established Patient with Laura Ramirez [employer] 04/25/2019 Z68.31 - Body mass index (BM I) 31.0-31.9 adult Medical Established Patient with Laura Ramirez [employer] 04/25/2019 Anxiety disorder NOS Medical New Patient with Laura Sean [employer] 09/14/2018 Benign essential hypertension Medical Ne w Patient with Laura Sean [employer] 09/14/2018 Coronary artery disease Medical New [place] ent with Laura Nye [employer] 09/14/2018 Diabetes Risk Test Score was five score 09/14/2018 Medical New Patient with Laura Sean [employer] 09/14/2018 Hyperlipidemia Medical New Patient with Laura Sean [employer] 09/14/2018 Obesity due to excess calories Medical N ew Patient with Laura Ramirez [employer] 09/14/2018 Routine history and physical Medical New Patient with Laura Ramirez [employer] 09/14/2018 Z68.32 - Body mass index (BM I) 32.0-32.9, adult Medical New Patient with Laura Sean [employer] 09/14/2018 Instructions Instructions not supported for this [...] section and content) DATE CREATED AUTHOR 12/20/2018 [facility] DATE CREATED AUTHOR AUTHOR'S ORGANIZ ATION 04/28/2019 [facility] DATE CREATED AUTHOR AUTHOR'S ORGANIZ ATION 01/20/2022 [facility] DATE CREATED AUTHOR AUTHOR'S ORGANIZ ATION 05/01/2022 [facility] DATE CREATED AUTHOR AUTHOR'S ORGANIZ ATION 02/07/2023 [facility] DATE CREATED AUTHOR AUTHOR'S ORGANIZ ATION 11/10/2023 [facility] DATE CREATED AUTHOR AUTHOR'S ORGANIZ ATION 02/13/2025 [facility] DATE CREATED AUTHOR AUTHOR'S ORGANIZ ATION 03/03/2025 [facility] Evaluations & Outcomes (unre cognized section and [...] NOS 09/15/19 19 History of depression 09/14/2018 Source Comments (unrecognize d section and content) In the event this informatio n is protected by the Federal Confidentiality of Alcohol and Drug Abuse Patient Records regulations: The Federal rules restrict any use of the information to criminally investigate or prosecute any alcohol or drug abuse patient.[facility] Center[facility] the event this information is protected by the Federal Confidentiality of Alcohol and Drug Abuse Patient Records regulations: The Federal rules restrict any use of the information to criminally investigate or prosecute any alcohol or drug abuse patient.[facility] CenterIn the event this information is protected by the Federal Confidentiality of Alcohol and Drug Abuse Patient Records regulations: The Federal rules restrict any use of the information to criminally investigate or prosecute any alcohol or drug abuse patient.[facility] CenterIn the event this information is protected by the Federal Confidentiality of Alcohol and Drug Abuse Patient Records regulations: The Federal rules restrict any use of the information to criminally investigate or prosecute any alcohol or drug abuse patient.[facility] CenterIn the event this information is protected by the Federal Confidentiality of Alcohol and Drug Abuse Patient Records regulations: The Federal rules restrict any use of the information to criminally investigate or prosecute any alcohol or drug abuse patient.[facility] CenterIn the event this information is protected by the Federal Confidentiality of Alcohol and Drug Abuse Patient Records regulations: The Federal rules restrict any use of the information to criminally investigate or prosecute any alcohol or drug abuse patient.[facility] CenterIn the event this information is protected by the Federal Confidentiality of Alcohol and Drug Abuse Patient Records regulations: The Federal rules restrict any use of the information to criminally investigate or prosecute any alcohol or drug abuse patient.[facility] CenterIn the event this information is protected by the Federal Confidentiality of Alcohol and Drug Abuse Patient Records regulations: The Federal rules restrict any use of the information to criminally investigate or prosecute any alcohol or drug abuse patient.[facility] CenterIn the event this information is protected by the Federal Confidentiality of Alcohol and Drug Abuse Patient Records regulations: The Federal rules restrict any use of the information to criminally investigate or prosecute any alcohol or drug abuse patient.[facility] CenterIn the event this information is protected by the Federal Confidentiality of Alcohol and Drug Abuse Patient Records regulations: The Federal rules restrict any use of the information to criminally investigate or prosecute any alcohol or drug abuse patient.[facility] CenterIn the event this information is protected by the Federal Confidentiality of Alcohol and Drug Abuse Patient Records regulations: The Federal rules restrict any use of the information to criminally investigate or prosecute any alcohol or drug abuse patient.[facility] CenterIn the event this information is protected by the Federal Confidentiality of Alcohol and Drug Abuse Patient Records regulations: The Federal rules restrict any use of the information to criminally investigate or prosecute any alcohol or drug abuse patient.[facility] CenterIn the event this information is protected by the Federal Confidentiality of Alcohol and Drug Abuse Patient Records regulations: The Federal rules restrict any use of the information to criminally investigate or prosecute any alcohol or drug abuse patient.[facility] CenterIn the event this information is protected by the Federal Confidentiality of Alcohol and Drug Abuse Patient Records regulations: The Federal rules restrict any use of the information to criminally investigate or prosecute any alcohol or drug abuse patient.[facility] CenterIn the event this information is protected by the Federal Confidentiality of Alcohol and Drug Abuse Patient Records regulations: The Federal rules restrict any use of the information to criminally investigate or prosecute any alcohol or drug abuse patient.[facility] CenterIn the event this information is protected by the Federal Confidentiality of Alcohol and Drug Abuse Patient Records regulations: The Federal rules restrict any use of the information to criminally investigate or prosecute any alcohol or drug abuse patient.[facility] CenterIn the event this information is protected by the Federal Confidentiality of Alcohol and Drug Abuse Patient Records regulations: The Federal rules restrict any use of the information to criminally investigate or prosecute any alcohol or drug abuse patient.[facility] CenterIn the event this information is protected by the Federal Confidentiality of Alcohol and Drug Abuse Patient Records regulations: The Federal rules restrict any use of the information to criminally investigate or prosecute any alcohol or drug abuse patient.[facility] CenterIn the event this information is protected by the Federal Confidentiality of Alcohol and Drug Abuse Patient Records regulations: The Federal rules restrict any use of the information to criminally investigate or prosecute any alcohol or drug abuse patient.[facility] CenterIn the event this information is protected by the Federal Confidentiality of Alcohol and Drug Abuse Patient Records regulations: The Federal rules restrict any use of the information to criminally investigate or prosecute any alcohol or drug abuse patient.[facility] CenterIn the event this information is protected by the Federal Confidentiality of Alcohol and Drug Abuse Patient Records regulations: The Federal rules restrict any use of the information to criminally investigate or prosecute any alcohol or drug abuse patient.[facility] CenterIn the event this information is protected by the Federal Confidentiality of Alcohol and Drug Abuse Patient Records regulations: The Federal rules restrict any use of the information to criminally investigate or prosecute any alcohol or drug abuse patient.[facility] CenterIn the event this information is protected by the Federal Confidentiality of Alcohol and Drug Abuse Patient Records regulations: The Federal rules restrict any use of the information to criminally investigate or prosecute any alcohol or drug abuse patient.[facility] CenterIn the event this information is protected by the Federal Confidentiality of Alcohol and Drug Abuse Patient Records regulations: The Federal rules restrict any use of the information to criminally investigate or prosecute any alcohol or drug abuse patient.[facility] CenterIn the event this information is protected by the Federal Confidentiality of Alcohol and Drug Abuse Patient Records regulations: The Federal rules restrict any use of the information to criminally investigate or prosecute any alcohol or drug abuse patient.[facility] CenterIn the event this information is protected by the Federal Confidentiality of Alcohol and Drug Abuse Patient Records regulations: The Federal rules restrict any use of the information to criminally investigate or prosecute any alcohol or drug abuse patient.[facility] Reason for Visit (unrecogniz ed section and content) ReasonCommentsCare CoordinationRNCC IntroductionSpecialtyDiagnoses / Procedures Referred By ContactReferred To ContactHEMATOLOGY/ONCOLOGY Diagnoses Brain Cancer patient moving from [facility] [place] care Procedures NEW PATIENT 2 Self Hematology/Oncology [address] [place] [address] Phone: tel: Referral IDStatusReasonStart DateExpiration DateVisits RequestedVisits [id number] Financial Clearance Required - Self Pay Referred for NICK Patient Cleared - Qualified 100% FAS /[id number] (glioblastoma multiforme)Follow up SpecialtyDiagnoses / ProceduresReferred By ContactReferred To Contact HEMATOLOGY/ONCOLOGY Diagnoses Brain Cancer patient moving from [facility] [place] care Procedures NEW PATIENT 2 Self Hematology/Oncology [address] [place] [address] Phone: tel: Referral IDStatusReasonStart DateExpiration DateVisits RequestedVisits [id number] Financial Clearance Required - Self Pay Referred for NICK Patient Cleared - Qualified 100% FAS /[id number] UpdateNo prescription coverageReason CommentsGBM (glioblastoma multiforme)Follow upReferral IDStatusReasonStart Date Expiration DateVisits RequestedVisits [id number] Financial Clearance Required - Self Pay Referred for NICK Patient Cleared - Qualified 100% FAS /[id number] CTSpecialtyDiagnoses / Procedures Referred By ContactReferred To ContactCT IMAGING Diagnoses GBM (glioblastoma multiforme) (HCC) Pulmonary nodules/lesions, multiple Procedures CT CHEST WO IVCON DIAGNOSTIC COMPUTED TOMOGRAPHY THORAX W/O CNTRST Keith Dorsey MD [address] [place] [address] [place] [address] Phone: tel: fax: CT IMAGING [facility]95 Referral IDStatusReasonStutica DateExpiration DateVisits RequestedVisits [id number] Auto-Generated Referral /[id number] Eveywhere update. [facility] via faxReasonCommentsCare CoordinationquestionsReasonComments GBMFollow upReasonCommentsCare CoordinationRashReasonCommentsTriageOnbase_ Records Received_Images ViewableReasonCommentsRadiology MRISpecialtyDiagnoses / ProceduresReferred By ContactReferred To Contact IMAGING Diagnoses GBM (glioblastoma multiforme) (HCC) Pulmonary nodules/lesions, multiple Procedures MRI BRAIN WO/W IVCON MRI BRAIN BRAIN STEM W/O W/CONTRAST MATERIAL Keith Dorsey MD [address] [place] [address] [place] [address] Phone: tel: fax: MR IMAGING [facility]95 Referral IDStatusReasonStutica DateExpiration DateVisits RequestedVisits [id number] Auto-Generated Referral /[id number] encounter-disregardReasonComments9 weeksReasonCommentsGBMFollow up Care Teams (unrecognized sec tion and content) Team MemberRelationshipSpecialtyStart DateEnd Date Simone Mitchell, RAN [address] [place] [address] [place] [address] Specialty Care CoordinatorHematology/Oncology09/06/24 Keith Dorsey MD [address] [place] [address] PhysicianHematology/Oncology09/06/24Team MemberRelationshipSpecialtyStart DateEnd Date Simone Mitchell, RAN [address] [place] [address] Specialty Care CoordinatorHematology/Oncology09/06/24 Keith Dorsey MD [address] [place] [address] PhysicianHematology/Oncology09/06/24Team MemberRelationshipSpecialtyStart DateEnd Date Simone Mitchell, RAN [address] [place], [facility] Specialty Care CoordinatorHematology/Oncology09/06/24 Keith Dorsey MD [address] [place], [facility]70 PhysicianHematology/Oncology09/06/24 Emma Slater LSW Social Worker10/10/24Team MemberRelationshipSpecialtyStart DateEnd Date Simone Mitchell, RAN [address] [place] [address] Specialty Care CoordinatorHematology/Oncology09/06/24 Keith Dorsey MD [address] [place] [address] PhysicianHematology/Oncology09/06/24 Emma Slater LSW Social Worker10/10/24Team MemberRelationshipSpecialtyStart DateEnd Date Simone Mitchell, RN [address] [place] [address] Specialty Care CoordinatorHematology/Oncology09/06/24 Keith Dorsey MD [address] [facility] [place] [address] PhysicianHematology/Oncology09/06/24 Emma Slater, [facility] Social Worker10/10/24Team MemberRelationshipSpecialtyStart DateEnd Date Simone Mitchell, RAN [address] [place] [address] Specialty Care CoordinatorHematology/Oncology09/06/24 Keith Dorsey MD [address] [facility] [place] [address] PhysicianHematology/Oncology09/06/24 Emma Slater, [facility] Social Worker10/10/24Team MemberRelationshipSpecialtyStart DateEnd Date Simone Mitchell RN [address] [facility] [place] [address] Specialty Care CoordinatorHematology/Oncology09/06/24 Keith Dorsey MD [address] [facility] [place] [address] PhysicianHematology/Oncology09/06/24 Emma Slater, [facility] Social Worker10/10/24Team MemberRelationshipSpecialtyStart DateEnd Date Simone Mitchell, RN [address] [place] [address] Specialty Care CoordinatorHematology/Oncology09/06/24 Keith Dorsey MD [address] [facility] [place] [address] PhysicianHematology/Oncology09/06/24 Emma Slater, [facility] Social Worker10/10/24Team MemberRelationshipSpecialtyStart DateEnd Date Simone Mitchell, RN [address] [facility] [place] [address] Specialty Care CoordinatorHematology/Oncology09/06/24 Keith Dorsey MD [address] [facility] [place] [address] PhysicianHematology/Oncology09/06/24 Emma Slater, [facility] Social Worker10/10/24Team MemberRelationshipSpecialtyStart DateEnd Date Simone Mitchell, RN [address] [facility] [place] [address] Specialty Care CoordinatorHematology/Oncology09/06/24 Keith Dorsey MD [address] [facility] [place] [address] PhysicianHematology/Oncology09/06/24 Emma Slater, [facility] Social Worker10/10/24Team MemberRelationshipSpecialtyStart DateEnd Date Simone Mitchell, RAN [address] [facility] [place] [address] Specialty Care CoordinatorHematology/Oncology09/06/24 Keith Dorsey MD [address] [facility] [place] [address] PhysicianHematology/Oncology09/06/24 Emma Slater, [facility] Social Worker10/10/24Team MemberRelationshipSpecialtyStart DateEnd Date Simone Mitchell, RN [address] [place] [address] Specialty Care CoordinatorHematology/Oncology09/06/24 Keith Dorsey MD [address] [place] [address] PhysicianHematology/Oncology09/06/24 Emma Slater, [facility] Social Worker10/10/24Team MemberRelationshipSpecialtyStart DateEnd Date Simone Mitchell, RN [address] [place] [address] Specialty Care CoordinatorHematology/Oncology09/06/24 Keith Dorsey MD [address] [facility] [place] [address] PhysicianHematology/Oncology09/06/24 Emma Slater, [facility] Social Worker10/10/24Team MemberRelationshipSpecialtyStart DateEnd Date Simone Mitchell RN [address] [place] [address] Specialty Care CoordinatorHematology/Oncology09/06/24 Keith Dorsey MD [address] [facility] [place] [address] PhysicianHematology/Oncology09/06/24 Emma Slater, [facility] Social Worker10/10/24Team MemberRelationshipSpecialtyStart DateEnd Date Simone Mitchell, RAN [address] [place] [address] Specialty Care CoordinatorHematology/Oncology09/06/24 Keith Dorsey MD [address] [place] [address] PhysicianHematology/Oncology09/06/24 Emma Slater LSW Social Worker10/10/24Team MemberRelationshipSpecialtyStart DateEnd Date Simone Mitchell, RN [address] [facility] [place] [address] Specialty Care CoordinatorHematology/Oncology09/06/24 Keith Dorsey MD [address] [facility] [place] [address] PhysicianHematology/Oncology09/06/24 Emma Slater LSW Social Worker10/10/24Team MemberRelationshipSpecialtyStart DateEnd Date Simone Mitchell, RAN [address] [facility] [place] [address] Specialty Care CoordinatorHematology/Oncology09/06/24 Keith Dorsey MD [address] [facility] [place] [address] PhysicianHematology/Oncology09/06/24 Emma Slater LSW Social Worker10/10/24Team MemberRelationshipSpecialtyStart DateEnd Date Shaikh Arshad MD PCP - [facility]06/07/23 Shaikh Arshad MD [facility] [facility] [place] [address] PCP - [facility]11/07/23Team MemberRelationshipSpecialtyStart DateEnd Date Shaikh Arshad MD [facility] - [facility]06/07/23 Shaikh Arshad MD [address] [place] [address] [facility]11/07/23Te MemberRelationshipSpecialtyStart DateEnd Date Shaikh Arshad MD [facility]06/07/23 Shaikh Arshad MD [address] [place] [address] [facility]11/07/23Te MemberRelationshipSpecialtyStart DateEnd Date Shaikh Arshad MD [facility]06/07/23 Shaikh Arshad MD [address] [place] [address] [facility]11/07/23 FOR RECORDS PERTAINING TO PATIENTS WHO ARE [...] BE BASED ON THE PRIMARY CLINICAL RECORDS. [facility] [email or web address] [facility]. provides no warranty or guarantee of the accuracy or completeness of information in this document.
== END 2025-04-12 14:33 | disposition home or self-care (01) ==
PROVIDERS: Emergency Provider Emergency Medicine
DX: K02.9 Dental caries, unspecified (principal)
CPT/HCPCS: 99283